=== PATIENT | female | born 1945 | race Caucasian/White ===

== ENCOUNTER 2017-12-01 09:00 | Day surgery (SDC) | payer MEDICARE, OTHER, SELFPAY ==
[2017-12-01] VITALS (7 sets, daily range): BP systolic 138–155; BP diastolic 47–82; PULSE 54–62; RESP 16–18; TEMP 36.4–36.9; O2SAT 96–100; BMI 30.9
--- NOTE | 2017-12-01 10:31 | PCM.OPRPT ---
Report of Operation Date of Procedure: 12/01/17 Pre-Operative Diagnosis: Constipation Post-Operative Diagnosis: Normal colon Surgery/Procedure Performed:: Colonoscopy Type of Anesthesia:: MAC Anesthesiologist: Moy Flynn Specimen's removed: None Estimated Blood Loss (mL): None Description of Procedure: Procedure: Colonoscopy After reviewing the risks benefits, the patient was deemed in satisfactory condition to undergo procedure. After obtaining informed consent, the scope was passed under direct visualization. Throughout the procedure, the patient's blood pressure pulse and position saturations were monitored continuously anesthesia. The colonoscope was introduced through the anus and advanced to the cecum, identified by the appendiceal orifice, IC valve and transillumination. The colonoscopy was performed without difficulty. The patient tolerated procedure well. Quality of bowel prep was good. Findings: The perianal and digital rectal exam were normal. The colon (entire examined portion) appeared normal. Retroflexed view of the distal rectum and anal verge was normal and showed no anal or rectal abnormalities Impression: 1. The entire colon is normal. 2. The distal rectal and anal verge were normal on retroflexed view. Recommendations: High-fiber diet for the constipation Repeat colonoscopy in 10 years for screening purposes - Complications none
== END 2017-12-01 11:25 | disposition home or self-care (01) ==
LOC: EN 09:01 → AC 09:03
PROVIDERS: Family Provider Family Medicine; PCP Family Medicine; Visit Provider Surgery
PROC: 0DJD8ZZ Inspection of Lower Intestinal Tract, Via Natural or Artificial Opening Endoscopic (ICD-10-PCS; CPT 45378; principal; 2017-12-01 10:10)
DX: K59.00 Constipation, unspecified (principal); E03.9 Hypothyroidism, unspecified; E78.5 Hyperlipidemia, unspecified; I10 Essential (primary) hypertension; K21.9 Gastro-esophageal reflux disease without esophagitis; F41.9 Anxiety disorder, unspecified; F32.9 Major depressive disorder, single episode, unspecified; Z85.850 Personal history of malignant neoplasm of thyroid; Z79.82 Long term (current) use of aspirin; Z79.899 Other long term (current) drug therapy
CPT/HCPCS: 45378; J7120

== ENCOUNTER → 2017-12-23 09:27 | Outpatient (CLI) | payer MEDICARE, OTHER, SELFPAY | PROVIDERS: Family Provider Family Medicine; PCP Family Medicine; Visit Provider Family Medicine | DX: R05 Cough (principal) | CPT/HCPCS: 71046 ==

== ENCOUNTER → 2018-02-16 06:54 | Outpatient (CLI) | payer MEDICARE, OTHER, SELFPAY ==
[2018-02-25 12:23] LABS: Absolute Neutrophil Count 2.8 X10^3/uL (2.0-7.7); Basophil# 0.06 X10^3/uL; Basophil% 1.3 % (0-1); Eosinophil# 0.11 X10^3/uL; Eosinophils% 2.3 % (0-5); Hematocrit 40.9 % (37-47); Hemoglobin 13.4 g/dl (12.0-15.0); Lymphocyte % 31.3 % (19-41); Mean Corp Hgb Conc 32.8 g/gl (32-36); Mean Corpuscular Hgb 30.5 pg (27.0-32.0); Mean Corpuscular Volume 93.2 fL (81-99); Mean Platelet Vol. 9.3 fl (6.2-12.0); Monocyte# 0.37 X10^3/uL; Monocyte% 7.7 % (0-10); Neutrophil # 2.75 X10^3/uL (2.7-7.7); Neutrophil % 57.2 % (47-70); Platelet Count 256 K/mm3 (150-450); RBC Distribution Width CV 13.7 % (11.6-14.6); RBC Distribution Width SD 45.3 fl (35.1-43.9); Red Blood Count 4.39 M/mm3 (4.2-5.4); White Blood Count 4.8 K/mm3 (4.4-11.0)
[2018-02-25 12:38] LABS: POSITIVE COUNT NO; POSITIVE DIFFERENTIAL NO; POSITIVE MORPHOLOGY NO
[2018-02-25 12:43] LABS: ALB/GLOB Ratio 1.1 RATIO (0.9-2.4); AST(SGOT) 13 U/L (15-37); Alanine Aminotransfer ALT/SGPT 23 U/L (13-56); Albumin, Serum 3.9 g/dL (3.2-5.0); Alkaline Phosphatase 75 U/L (45-117); Anion Gap 7 (5-15); BUN 22 mg/dL (7-18); BUN/Creat Ratio 27.5 RATIO (10-20); Calcium,Total 8.9 mg/dL (8.5-10.1); Chloride 105 mmol/L (98-107); Cholesterol 300 mg/dL (200); EST Glomerular Filtration Rate 74 mL/min (>60); Est Glom Filt Rate - Afr Amer 90 mL/min (>60); Globulin 3.5 g/dL (2.2-4.2); Glucose 92 mg/dL (74-106); High Density Lipoprotein 53 mg/dL; Iron 81 ug/dL (50-170); Potassium 4.5 mmol/L (3.5-5.1); Protein, Total 7.4 g/dL (6.4-8.2); Sodium Level 139 mmol/L (136-145); Triglycerides 296 mg/dL; Very Low Density Lipoprotein 59 mg/dL (5-40); Vitamin B12 1191 pg/mL (211-911)
--- OUTSIDE RECORDS SUMMARY | 2018-05-21 04:53 | XMS RPT_ITS ---
:1945 Author Organization OHIP Support Name Relationship Address Phone BOY HUBER Unavailable [id number] + [place] [address] R Unavailable Unavailable Unavailable HILTY, BOY Unavailable [id number] [place] [address] RD + [place] [address] R Unavailable Unavailable Unavailable HILTY, BOY Unavailable [address] + [place] [address] R Unavailable Unavailable Unavailable HILTY, BOY Unavailable [phone] [place] [address] RD + [place] [address] R Unavailable Unavailable Unavailable HILTY, BOY Unavailable [phone] [place] [address] RD + [place] [address] R Unavailable Unavailable Unavailable HILTY, BOY Unavailable [phone] [place] [address] RD + [place] [address] R Unavailable Unavailable Unavailable HILTY, BOY Unavailable [phone] [place] [address] RD + [place] [address] R Unavailable Unavailable Unavailable HILTY, BOY Unavailable [phone] [place] [address] RD + [place] [address] R Unavailable Unavailable Unavailable HILTY, BOY Unavailable [address] [place] [address] RD + [place] [address] R Unavailable Unavailable Unavailable Care Team Providers Name Role Phone GARLAND MOJICA Referring Unavailable GARLAND MOJICA Attending Unavailable GARLAND MOJICA Referring Unavailable GARLAND MOJICA Attending Unavailable BIANCA GASCA ([facility]) Attending Unavailable GARLAND MOJICA Referring Unavailable Malys, Elis Primary Care Unavailable Referred, Self Attending Unavailable Robotham, Hannah Attending Unavailable Malys, Elis Referring Unavailable Robotham, Hannah Attending Unavailable Malys, Elis Referring Unavailable Malys, Elis Primary Care Unavailable Robotham, Hannah Attending Unavailable Malys, Elis Primary Care Unavailable Robotham, Hannah Referring Unavailable Robotham, Hannah Attending Unavailable Robotham, Hannah Referring Unavailable Malys, Elis Primary Care Unavailable Robotham, Hannah Consulting Unavailable Miedel, Susan Attending Unavailable MiedelKendallSusan Referring Unavailable Malys, Elis Primary Care Unavailable Malys, Elis Attending Unavailable Malys, Elis Primary Care Unavailable Malys, Elis Attending Unavailable Malys, Elis Primary Care Unavailable Malys, Elis Referring Unavailable Cebul, Cipriano Attending Unavailable Malys, Elis Referring Unavailable PROBLEMS PROBLEMS DATE TYPE CONDITION / CODE ATTENDING STATUS SOURCE 03/24/2018 Unknown 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, 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 / Repository I65.29(ICD-10) 03/28/2018 Unknown E78.5 - Malys, Elis Active [facility] Hyperlipidemia, [facility] E78.5(ICD-10) Repository 03/28/2018 Unknown R41.89 - Other Malys, Elis Active [facility] symptoms and signs [facility] cognitive Repository functions and awareness / R41.89(ICD-10) 03/28/2018 Unknown I10 - Essential Malys, Elis Active [facility] (primary) [facility] hypertension / Hospital I10(ICD-10) Repository 03/28/2018 Unknown E03.9 - Malys, Elis Active [facility] Hypothyroidism, [facility] E03.9(ICD-10) Repository 03/28/2018 Unknown E56.9 - Vitamin Malys, Elis Active [facility] deficiency, [facility] Hospital E56.9(ICD-10) Repository 01/10/2018 Active Unknown / [place] Active [facility] UNK(Unknown) HUMMEL, [facility] GARLAND Repository 01/10/2018 Active Encounter for NA Active [facility] screening Main [place] mammogram for Repository malignant neoplasm of breast / Z12.31(ICD-10) PROCEDURES PROCEDURES No Procedure Records FoundRESULTS RESULTS CBC W/DIFF, AUTOMATED Collected: 02/25/2018 Status: F Source: [place] 9:49 AM [facility] REPOSITORY TYPE CODE TESTS RESULT OUT OF RANGE REFERENCE UNITS LAB L100.1000 4.4-11.0 K/mm3 Normal WBC 4.8 LAB L100.1200 4.2-5.4 M/mm3 Normal RBC 4.39 LAB L100.1300 12.0-15.0 g/dl Normal HGB 13.4 LAB L100.1400 37-47 % Normal HCT 40.9 LAB L100.1500 81-99 fL Normal MCV 93.2 LAB L100.1600 27.0-32.0 pg Normal MCH 30.5 LAB L100.1700 32-36 g/gl Normal MCHC 32.8 LAB L100.1810 11.6-14.6 % Normal RDW CV 13.7 LAB L100.1820 35.1-43.9 fl High RDW SD 45.3 LAB L100.1900 150-450 K/mm3 Normal PLT 256 LAB L100.2000 6.2-12.0 fl Normal MPV 9.3 LAB L100.2100 47-70 % Normal NEUT% 57.2 LAB L100.2200 19-41 % Normal LY% 31.3 LAB L100.2300 0-10 % Normal MONO% 7.7 LAB L100.2400 0-5 % Normal EO% 2.3 LAB L100.2500 0-1 % High BASO% 1.3 LAB L100.2550 0.0-0.9 % Normal IM GRAN % 0.200 Result Comment: IG% - Immature Granulocytes (promyelocytes, myelocytes and metamyelocytes) > 1% indicates that a LEFT SHIFT is Present. LAB L100.2620 2.0-7.7 X10 3/uL Normal Absolute Neut 2.8 LAB L100.2720 0.83-4.51 X10 3/ul Normal Absolute Lymph 1.50 Performed By: #### L100.0100 #### [facility] [address] [place], [address] COMPREHENSIVE METABOLIC Collected: 02/25/2018 Status: F Source: [facility] 9:49 AM [facility] REPOSITORY TYPE CODE TESTS RESULT OUT OF RANGE REFERENCE UNITS LAB L501.0100 74-106 mg/dL Normal GLU 92 Result Comment: Please note revised GLUCOSE reference range effective 2017. LAB L501.1000 7-18 mg/dL High BUN 22 LAB L501.1100 0.55-1.02 mg/dL Normal CREAT,SERUM 0.80 Result Comment: The validity of the calculated GFR AND GFRAA in patients over 70 years has not been determined. Clinical correlation is essential. LAB L501.1110 >60 mL/min Normal EST GFR 74 Result Comment: Non- GFR Calc LAB L501.1115 >60 mL/min Normal EST GFR - AA 90 Result Comment: GFR Calc LAB L501.1300 10-20 RATIO High BUN/CRE 27.5 LAB L501.1500 6.4-8.2 g/dL T Normal PROT 7.4 LAB L501.1800 3.2-5.0 g/dL Normal ALB 3.9 LAB L501.1950 2.2-4.2 g/dL Normal GLOB 3.5 LAB L501.2000 0.9-2.4 RATIO Normal A/G 1.1 LAB L501.2200 8.5-10.1 mg/dL CA Normal 8.9 LAB L501.4100 15-37 U/L Low AST 13 LAB L501.4305 45-117 U/L Normal ALK P 75 LAB L501.4405 13-56 U/L Normal ALT 23 LAB L501.4600 0.20-1.00 mg/dL T Normal BILI 0.40 LAB L501.5300 136-145 mmol/L NA Normal 139 LAB L501.5600 3.5-5.1 mmol/L K Normal 4.5 LAB L501.5900 98-107 mmol/L CL Normal 105 LAB L501.6100 21.0-32.0 mmol/L Normal CO2 27.0 LAB L501.6200 5-15 Normal GAP 7 Performed By: #### L500.4050, L500.4100, L503.6150 #### [facility] [address] [place], [address] LIPID PROFILE Collected: 02/25/2018 Status: F Source: [place] 9:49 AM [facility] REPOSITORY TYPE CODE TESTS RESULT OUT OF RANGE REFERENCE UNITS LAB L501.4900 200 mg/dL High CHOL 300 Result Comment: <200 mg/dL Desirable 200-240 mg/dL Borderline >240 mg/dL High Risk LAB L501.5000 mg/dL High TRIG 296 Result Comment: The drugs N-Acetylcysteine and Metamizole may falsely depress this assay. Serum Triglycerides Reference Interval Normal <150 mg/dL Borderline high 150 - 199 mg/dL High 200 - 499 mg/dL Very High > or = 500 mg/dL LAB L501.6400 mg/dL Normal HDL 53 Result Comment: The drugs N-Acetylcysteine and Metamizole may falsely depress this assay. Reference Range HDL <40 mg/dL Low HDL Cholesterol HDL >or= 60 mg/dL High HDL Cholesterol LAB L501.6500 0-130 mg/dL High LDL 188 LAB L501.6600 5-40 mg/dL High VLDL 59 Performed By: #### L500.4050, L500.4100, L503.6150 #### [facility] [address] [place], [address] IRON Collected: 02/25/2018 Status: F Source: [place] 9:49 AM [facility] REPOSITORY TYPE CODE TESTS RESULT OUT OF RANGE REFERENCE UNITS LAB L503.6150 50-170 ug/dL Normal IRON 81 Performed By: #### L500.4050, L500.4100, L503.6150 #### [facility] [address] [place], [address] VITAMIN B12 Collected: 02/25/2018 Status: F Source: [place] 9:49 AM [facility] REPOSITORY TYPE CODE TESTS RESULT OUT OF REFERENCE UNITS RANGE LAB L503.0105 211-911 pg/mL High Vitamin B12 1191 Performed By: #### L503.0105 #### [facility] [address] [place], [address] PROGRESS Observed: 01/28/2018 Status: COMPLETED Source: [place] 11:31 AM [facility] REPOSITORY HNO ID: [id number] Author: Bianca Gasca Service: (none) Author Type: Nurse Practitioner Type: Progress Notes Filed: 01/28/2018 12:20 PM Note Text: Lilliana Huber presents today for pessary reinsertion. Had 2.25 Gelhorn fitted yesterday. Upon urinating when she returned home, pessary fell out. The alternatives, risks, benefits, and potential complications have been reviewed with the patient. The patient states an understanding of RBAP and consents to proceed with the procedure. Vaginal Exam: No lesions or erosions A size 2.50 Gelhorn unable to be inserted due to patient discomfort. Fitting kit incomplete due to fitting pessaries being cleaned so fitting not able to be completed. Pt will be scheduled for office visit for pessary fitting with Dr Hummel. Assistance given in making appointment. Bianca Gasca APRN.CNP CNOV Observed: 01/28/2018 Status: COMPLETED Source: [place] 11:30 AM [facility] REPOSITORY Office Visit (WOOB) LILLIANA HUBER ([id number]) 1945 F Date Time Provider Department 01/28/18 11:30 AM BIANCA GASCA ([facility]) WOOB During your visit today, we recorded the following information about you: Weight 75.8 kg Bianca Gasca APRN.CNP 01/28/2018 12:20 PM Signed Lilliana Burgosadore presents today for pessary reinsertion. Had 2.25 Gelhorn fitted yesterday. Upon urinating when she returned home, pessary fell out. The alternatives, risks, benefits, and potential complications have been reviewed with the patient. The patient states an understanding of RBAP and consents to proceed with the procedure. Vaginal Exam: No lesions or erosions A size 2.50 Gelhorn unable to be inserted due to patient discomfort. Fitting kit incomplete due to fitting pessaries being cleaned so fitting not able to be completed. Pt will be scheduled for office visit for pessary fitting with Dr Hummel. Assistance given in making appointment. Bianca Gasca APRN.CNP Referring Provider: GARLAND MOJICA [[id number]] Allergies As of Date: 01/28/2018 Noted Allergy Reaction AMBIEN (ZOLPIDEM TARTRATE) 03/25/2005 1 - Mental Status Change environmental [Other] 03/25/2005 Comments: second hand smoke jalapeno [Other] 03/01/2008 LATEX 08/29/2007 2 - Rash LIPITOR (ATORVASTATIN) 03/25/2005 Comments: muscle aches OAK 12/07/2013 14 - Other: See Comments PENICILLINS 03/25/2005 4 - Hives plastic [Other] 03/25/2005 Comments: ?adhesive=rashy SIMVASTATIN 03/25/2005 14 - Other: See Comments Comments: flu like sxs SULFA (SULFONAMIDE ANTIBIOTICS) 03/25/2005 Comments: uncertai;n Date Reviewed: 01/28/2018 Reviewed by: Bianca Gasca - Fully Assessed Primary Visit Diagnosis:Fitting and adjustment of pessary [Z46.89] Prescriptions as of 01/28/2018 Sig: LISINOPRIL 20 MG TABLET Take 20 mg by mouth once bina* CHOLECALCIFEROL (VITAMIN D3) * Take 1,000 Units by mouth onc* CALTRATE PLUS ORAL Take by mouth daily at bedti* FLAXSEED ORAL Take by mouth. Put seeds on * LEVOTHYROXINE 175 MCG TABLET Take 1 tablet by mouth once d* ALFALFA 250 MG TABLET Take 2 tablets by mouth twice* BENADRYL 25 MG CAPSULE Take two(2) at bedtime NORVASC 5 MG TABLET Take one(1) tablet daily. ATENOLOL 25 MG TABLET Take one(1) tablet daily. Problem List As Of Date 01/28/2018 Noted Resolved Thyroid CA [C73] INVALID FOR* More... URGENCY OF URINATION [R39.15] INVALID FOR* URGE INCONTINENCE [N39.41] INVALID FOR* FEMALE STRESS INCONTINENCE [N39.3] INVALID FOR*11/08/2008 ATROPHIC VAGINITIS [N95.2] INVALID FOR* Urethral caruncle [N36.2] INVALID FOR*11/26/2011 CYSTOCELE, MIDLINE [N81.11] INVALID FOR* BONE AND CARTILAGE DIS NOS [M89.9, M94.9] INVALID FOR* UNSP ABNORMAL MAMMOGRAM [R92.8] INVALID FOR* Vitamin D deficiency [E55.9] INVALID FOR* Osteopenia [M85.80] Depressive disorder, not elsewhere classified [* MVP (mitral valve prolapse) [I34.1] Sleep disturbance, unspecified [G47.9] GERD (gastroesophageal reflux disease) [K21.9] Unspecified hemorrhoids with other complication* Diverticulosis of colon (without mention of hem* Uterovaginal prolapse, incomplete [N81.2] INVALID FOR* Diaphragmatic hernia without mention of obstruc*INVALID FOR* Duodenitis without mention of hemorrhage [K29.8*INVALID FOR* Esophagitis, unspecified [K20.9] INVALID FOR* Esophageal reflux [K21.9] INVALID FOR* Encounter Status:Closed by BIANCA GASCA on 01/28/18 PROGRESS Observed: 01/27/2018 Status: COMPLETED Source: [place] 8:43 AM [facility] REPOSITORY HNO ID: [id number] Author: Garland Hummel Service: (none) Author Type: Physician Type: Progress Notes Filed: 01/27/2018 8:48 AM Note Text: Lilliana Huber is a 72 year old female who presents for pessary fitting for uterovaginal prolapse, difficulty emptying bladder, urinary urgency. Pt offers no concerns today. 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 Thyroid cancer - Osteopenia no currently osteopenia - Postmenopausal atrophic vaginitis - Rotator cuff syndrome of shoulder and allied disorders Rotator cuff syndrome - Symptomatic menopausal or female climacteric states - Unspecified constipation Constipation resolved - Unspecified essential hypertension Essential hypertension - Unspecified hypothyroidism Hypothyroidism - Urge incontinence very Mild - Urgency of urination - Uterovaginal prolapse, incomplete PAST SURGICAL HISTORY Procedure Laterality Date - BX BREAST PERC VACUUM/ROTN Right - benign - COLONOSCOP W/ OR W/O [facility] SPEC 10/20/2012 Colonoscopy - DANDC, DIAG AND/OR THERAPEUTIC Dilation AND curettage - EGD W/O [facility] SPECIMEN W/BX 12/25/10 - LIGATE FALLOPIAN TUBE Tubal ligation - PAST SURGICAL HISTORY OF peridontal - REPAIR UMBILICAL AMAYA,<5Y/O,REDUC Hernia repair, umbilical - THYROIDECTOMY FAMILY HISTORY Problem Relation Age of Onset - Hypertension Mother - Heart Mother - Heart Maternal Grandmother - Breast Cancer Maternal Aunt age 50 Social History Marital status: Unknown Spouse name: Boy (Arnot) Years of education: 16 Number of children: 1 Occupational History Occupation Employer Comment Retired Social History Main Topics Smoking status: Never Smoker Smokeless tobacco: Never Used Alcohol use: No Drug use: No Sexual activity: Yes Partners with: Male control/protection: Tubal Ligation Current Outpatient Prescriptions: lisinopril (ZESTRIL, PRINIVIL) 20 mg tablet Take 20 mg by mouth once daily. Cholecalciferol, Vitamin D3, 1,000 unit Tab Take 1,000 Units by mouth once daily. CALCIUM CARB/VIT D2/MINERALS (CALTRATE PLUS ORAL) Take by mouth daily at bedtime. FLAXSEED ORAL Take by mouth. Put seeds on ceral. levothyroxine 175 mcg tablet Take 1 tablet by mouth once daily. alfalfa 250 mg Tab Take 2 tablets by mouth twice daily as needed. diphenhydramine hcl(BENADRYL 25 MG CAP) Take two(2) at bedtime NORVASC 5 MG TAB Take one(1) tablet daily. ATENOLOL 25 MG TAB Take one(1) tablet daily. No current facility-administered medications for this visit. Allergies As of Date: 01/27/2018 Allergen Noted Reaction AMBIEN [ZOLPIDEM TARTRATE] 03/25/2005 Mental Status Change ENVIRONMENTAL [OTHER] 03/25/2005 JALAPENO [OTHER] 03/01/2008 LATEX 08/29/2007 Rash LIPITOR [ATORVASTATIN] 03/25/2005 OAK 12/07/2013 Other: See Comments PENICILLINS 03/25/2005 Hives PLASTIC [OTHER] 03/25/2005 SIMVASTATIN 03/25/2005 Other: See Comments SULFA (SULFONAMIDE ANTIBIOTICS) 03/25/2005 Fully Assessed 01/27/2018 REVIEW OF SYSTEMS Abdomen: no pain Bladder: urgency at times- but not able to empty completely. Pt reports difficulty starting stream. .. Expanded ROS: GENERAL: No weight loss, malaise or fevers Allergies and current medication updated:Yes EXAM: BP 122/70 Wt 167 lb (75.8kg) GENERAL: pleasant, female in no apparent distress HEENT: Normocephalic and atraumatic NECK: full range of motion DERMATOLOGY: Normal, without lesions, non-icteric and non-hirsute PELVIC: complete uterine prolapse noted today on exam- no ulcerations. Pt was fitted for GELHORN 2.25 size. Pt tolerated well- pt reports comfort, able to urinate well with it in during visit today. Trial size was removed and was given new one and placed without difficulty. NEURO: alert and oriented x3,exam grossly non-focal EXTREMITIES: normal ASSESSMENT AND PLAN: Encounter Diagnosis ICD-10-CM 1. Complete uterovaginal prolapse N81.3 2. Encounter for fitting and adjustment of pessary Z46.89 3. GELHORN 2.25 placed without difficulty. Pt was able to urinate well with it in place. Pt was counseled on routine follow up. Pt was counseled on vaginal discharge, bleeding, ulcerations- pt will call if anything arises. 4. RTO 6 wks Garland Perales MD CNOV Observed: 01/27/2018 Status: COMPLETED Source: [place] 8:20 AM [facility] REPOSITORY Office Visit (WOOB) NAMLILLIANA ([id number]) 1945 F Date Time Provider Department 01/27/18 8:20 AM GARLAND MOJICA WODINA During your visit today, we recorded the following information about you: Blood pressure Weight 122/70 75.8 kg Garland Perales MD 01/27/2018 8:48 AM Signed Lilliana Huber is a 72 year old female who presents for pessary fitting for uterovaginal prolapse, difficulty emptying bladder, urinary urgency. Pt offers no concerns today. 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 Thyroid cancer - Osteopenia no currently osteopenia - Postmenopausal atrophic vaginitis - Rotator cuff syndrome of shoulder and allied disorders Rotator cuff syndrome - Symptomatic menopausal or female climacteric states - Unspecified constipation Constipation resolved - Unspecified essential hypertension Essential hypertension - Unspecified hypothyroidism Hypothyroidism - Urge incontinence very Mild - Urgency of urination - Uterovaginal prolapse, incomplete PAST SURGICAL HISTORY Procedure Laterality Date - BX BREAST PERC VACUUM/ROTN Right - benign - COLONOSCOP W/ OR W/O [facility] SPEC 10/20/2012 Colonoscopy - DANDC, DIAG AND/OR THERAPEUTIC Dilation AND curettage - EGD W/O [facility] SPECIMEN W/BX 12/25/10 - LIGATE FALLOPIAN TUBE Tubal ligation - PAST SURGICAL HISTORY OF peridontal - REPAIR UMBILICAL AMAYA,<5Y/O,REDUC Hernia repair, umbilical - THYROIDECTOMY FAMILY HISTORY Problem Relation Age of Onset - Hypertension Mother - Heart Mother - Heart Maternal Grandmother - Breast Cancer Maternal Aunt age 50 Social History Marital status: Unknown Spouse name: Boy Dawson) Years of education: 16 Number of children: 1 Occupational History Occupation Employer Comment Retired Social History Main Topics Smoking status: Never Smoker Smokeless tobacco: Never Used Alcohol use: No Drug use: No Sexual activity: Yes Partners with: Male control/protection: Tubal Ligation Current Outpatient Prescriptions: lisinopril (ZESTRIL, PRINIVIL) 20 mg tablet Take 20 mg by mouth once daily. Cholecalciferol, Vitamin D3, 1,000 unit Tab Take 1,000 Units by mouth once daily. CALCIUM CARB/VIT D2/MINERALS (CALTRATE PLUS ORAL) Take by mouth daily at bedtime. FLAXSEED ORAL Take by mouth. Put seeds on ceral. levothyroxine 175 mcg tablet Take 1 tablet by mouth once daily. alfalfa 250 mg Tab Take 2 tablets by mouth twice daily as needed. diphenhydramine hcl(BENADRYL 25 MG CAP) Take two(2) at bedtime NORVASC 5 MG TAB Take one(1) tablet daily. ATENOLOL 25 MG TAB Take one(1) tablet daily. No current facility-administered medications for this visit. Allergies As of Date: 01/27/2018 Allergen Noted Reaction AMBIEN [ZOLPIDEM TARTRATE] 03/25/2005 Mental Status Change ENVIRONMENTAL [OTHER] 03/25/2005 JALAPENO [OTHER] 03/01/2008 LATEX 08/29/2007 Rash LIPITOR [ATORVASTATIN] 03/25/2005 OAK 12/07/2013 Other: See Comments PENICILLINS 03/25/2005 Hives PLASTIC [OTHER] 03/25/2005 SIMVASTATIN 03/25/2005 Other: See Comments SULFA (SULFONAMIDE ANTIBIOTICS) 03/25/2005 Fully Assessed 01/27/2018 REVIEW OF SYSTEMS Abdomen: no pain Bladder: urgency at times- but not able to empty completely. Pt reports difficulty starting stream. .. Expanded ROS: GENERAL: No weight loss, malaise or fevers Allergies and current medication updated:Yes EXAM: BP 122/70 Wt 167 lb (75.8kg) GENERAL: pleasant, female in no apparent distress HEENT: Normocephalic and atraumatic NECK: full range of motion DERMATOLOGY: Normal, without lesions, non-icteric and non-hirsute PELVIC: complete uterine prolapse noted today on exam- no ulcerations. Pt was fitted for GELHORN 2.25 size. Pt tolerated well- pt reports comfort, able to urinate well with it in during visit today. Trial size was removed and was given new one and placed without difficulty. NEURO: alert and oriented x3,exam grossly non-focal EXTREMITIES: normal ASSESSMENT AND PLAN: Encounter Diagnosis ICD-10-CM 1. Complete uterovaginal prolapse N81.3 2. Encounter for fitting and adjustment of pessary Z46.89 3. GELHORN 2.25 placed without difficulty. Pt was able to urinate well with it in place. Pt was counseled on routine follow up. Pt was counseled on vaginal discharge, bleeding, ulcerations- pt will call if anything arises. 4. RTO 6 wks Garland Perales MD Referring Provider: SELF [[id number]] Allergies As of Date: 01/27/2018 Noted Allergy Reaction AMBIEN (ZOLPIDEM TARTRATE) 03/25/2005 1 - Mental Status Change environmental [Other] 03/25/2005 Comments: second hand smoke jalapeno [Other] 03/01/2008 LATEX 08/29/2007 2 - Rash LIPITOR (ATORVASTATIN) 03/25/2005 Comments: muscle aches OAK 12/07/2013 14 - Other: See Comments PENICILLINS 03/25/2005 4 - Hives plastic [Other] 03/25/2005 Comments: ?adhesive=rashy SIMVASTATIN 03/25/2005 14 - Other: See Comments Comments: flu like sxs SULFA (SULFONAMIDE ANTIBIOTICS) 03/25/2005 Comments: uncertai;n Date Reviewed: 01/27/2018 Reviewed by: Karen Taylor Ma - Fully Assessed Reason for Visit: Pessary [[id number]] Primary Visit Diagnosis:Complete uterovaginal prolapse [N81.3] Other Visit Diagnosis:Encounter for fitting and adjustment of pessary [Z46.89] Prescriptions as of 01/27/2018 Sig: LISINOPRIL 20 MG TABLET Take 20 mg by mouth once bina* CHOLECALCIFEROL (VITAMIN D3) * Take 1,000 Units by mouth onc* CALTRATE PLUS ORAL Take by mouth daily at bedti* FLAXSEED ORAL Take by mouth. Put seeds on * LEVOTHYROXINE 175 MCG TABLET Take 1 tablet by mouth once d* ALFALFA 250 MG TABLET Take 2 tablets by mouth twice* BENADRYL 25 MG CAPSULE Take two(2) at bedtime NORVASC 5 MG TABLET Take one(1) tablet daily. ATENOLOL 25 MG TABLET Take one(1) tablet daily. Problem List As Of Date 01/27/2018 Noted Resolved Thyroid CA [C73] INVALID FOR* More... URGENCY OF URINATION [R39.15] INVALID FOR* URGE INCONTINENCE [N39.41] INVALID FOR* FEMALE STRESS INCONTINENCE [N39.3] INVALID FOR*11/08/2008 ATROPHIC VAGINITIS [N95.2] INVALID FOR* Urethral caruncle [N36.2] INVALID FOR*11/26/2011 CYSTOCELE, MIDLINE [N81.11] INVALID FOR* BONE AND CARTILAGE DIS NOS [M89.9, M94.9] INVALID FOR* UNSP ABNORMAL MAMMOGRAM [R92.8] INVALID FOR* Vitamin D deficiency [E55.9] INVALID FOR* Osteopenia [M85.80] Depressive disorder, not elsewhere classified [* MVP (mitral valve prolapse) [I34.1] Sleep disturbance, unspecified [G47.9] GERD (gastroesophageal reflux disease) [K21.9] Unspecified hemorrhoids with other complication* Diverticulosis of colon (without mention of hem* Uterovaginal prolapse, incomplete [N81.2] INVALID FOR* Diaphragmatic hernia without mention of obstruc*INVALID FOR* Duodenitis without mention of hemorrhage [K29.8*INVALID FOR* Esophagitis, unspecified [K20.9] INVALID FOR* Esophageal reflux [K21.9] INVALID FOR* Disposition: Return in about 6 weeks (around 03/10/2018) for pessary check . Follow-up and Disposition History Recorded Encounter Status:Closed by GARLAND HUMMEL MD on 01/27/18 CNOV Observed: 01/10/2018 Status: COMPLETED Source: [facility] 9:50 AM [facility] REPOSIT[facility] Office Visit (WOOB) LILLIANA HUBER ([id number]) 1945 F Date Time Provider Department 01/10/18 9:50 AM GARLAND MOJICA WODINA During your visit today, we recorded the following information about you: Blood pressure Weight Height 120/68 75.8 kg 1.575 m Karen Taylor Ma 01/10/2018 10:37 AM Signed Mailing Manager offered: Patient declines. Garland Perales MD 01/10/2018 10:37 AM Signed Lilliana Huber is a 72 year old who presents for her annual gynecologic exam with complaints, vaginal dryness. Pt has 7 grandchildren- one is in residency in [place]. Heading to [facility] for winter. Postmenopausal: Yes HRT use: No. Last Pap: 2010 normal HPV: 2010 negative History of abnormal pap: No Last mammogram: 2018 patient getting mammogram today, results pending. History of abnormal mammogram: No Sexually active: Yes Pain with intercourse: No Postcoital bleeding: No Hot flashes: No Exercise: routine Diet: Balanced Obstetric History T0 L1 SAB0 TAB0 Ectopic0 Multiple0 Live Births0 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 Thyroid cancer - Osteopenia no currently osteopenia - Postmenopausal atrophic vaginitis - Rotator cuff syndrome of shoulder and allied disorders Rotator cuff syndrome - Symptomatic menopausal or female climacteric states - Unspecified constipation Constipation resolved - Unspecified essential hypertension Essential hypertension - Unspecified hypothyroidism Hypothyroidism - Urge incontinence very Mild - Urgency of urination - Uterovaginal prolapse, incomplete PAST SURGICAL HISTORY Procedure Laterality Date - BX BREAST PERC VACUUM/ROTN Right - benign - COLONOSCOP W/ OR W/O [facility] SPEC 10/20/2012 Colonoscopy - DANDC, DIAG AND/OR THERAPEUTIC Dilation AND curettage - EGD W/O [facility] SPECIMEN W/BX 12/25/10 - LIGATE FALLOPIAN TUBE Tubal ligation - PAST SURGICAL HISTORY OF peridontal - REPAIR UMBILICAL AMAYA,<5Y/O,REDUC Hernia repair, umbilical - THYROIDECTOMY FAMILY HISTORY Problem Relation Age of Onset - Hypertension Mother - Heart Mother - Heart Maternal Grandmother - Breast Cancer Maternal Aunt age 50 SOCIAL HISTORY Social History Substance Use Topics - Smoking status: Never Smoker - Smokeless tobacco: Never Used - Alcohol use No REVIEW OF SYSTEMS Abdomen: No abdominal pain, nausea, vomiting, diarrhea, or constipation. No bloating, early satiety, indigestion, or increased flatulence. Bladder: No dysuria, gross hematuria, urinary urgency, or incontinence- Urinary frequency Breast: No breast lumps, nipple d/c, overlying skin changes, redness or skin retraction Allergies and current medication updated:Yes EXAM: BP 120/68 Ht 5' 2 (1.58m) Wt 167 lb (75.8kg) BMI 30.54 kg/(m2). GENERAL: pleasant, female in no apparent distress HEENT: Normocephalic, atraumatic, mucus membranes moist and no lesions NECK: Supple, full range of motion, no adenopathy and thyroid normal DERMATOLOGY: Normal, without lesions, non-icteric and non-hirsute BREAST: soft, non-tender, symmetric, no dominant mass, normal nipple-areolar complex, no lymphadenopathy and no nipple discharge ABDOMEN: soft, non-tender and no masses PELVIC: external genitalia normal, normal Bartholin's glands, urethra, Mcqueeney's glands, no vulvar lesions, no cervical lesions, physiologic discharge present, normal appearing perineal body and perianal region, cystocele 3rd degree, cervical prolapse 2nd degree BIMANUAL: uterus normal size, shape and consistency, no adnexal masses and non-tender RECTOVAGINAL: deferred. NEURO: alert and oriented x3,exam grossly non-focal EXTREMITIES: normal ASSESSMENT/PLAN: 1) Health maintenance: Pap/HPV screening no longer needed Mammogram ordered Mammogram up to date Nutrition, exercise and routine health maintenance exams reviewed. Calcium/Vitamin D supplementation information provided. Colon cancer screening: up to date with screening BMD: followed by PCP 2) Follow up one year or sooner as needed 3) reviewed Prolapse- does not splint - reviewed Pessary vs surgical options- pt is asymptomatic at this time- instructed to call office if she experiences pain/pressure/inability to urinate etc. MD Garland Christopher MD 01/10/2018 9:44 AM Signed Calcium and Vitamin D Supplementation (from the National Institutes of Health Office of Dietary Supplements 2010) Calcium is required by the body for blood vessel, muscle, hormone and nerve functioning. Most of the body's calcium is stored in the bones and teeth where it supports structure and function. Bone is continuously broken down and reformed. When bone breakdown exceeds formation, especially in postmenopausal women, bone loss can increase the risk of osteoporosis and fractures. In addition to low calcium intake, women who smoke, have a family history of osteoporosis, are thin, or , or who take certain medications such as cancer chemotherapy, seizure mediations and steroids are at increased risk of osteoporosis. The calcium requirements in women change with age. The National Institutes of Health (NIH) recommends: 1000mg elemental calcium for premenopausal women age 19-50 1200mg elemental calcium for postmenopausal women and all women over 50 Milk, yogurt, and cheese are rich natural sources of calcium and are the major food contributors in the [place]. For example, 8oz of milk (whole, lowfat or skim) contains about 300mg calcium, 8oz of yogurt contains 415mg. Nondairy sources include salmon and sardines and vegetables, such as Bulgarian cabbage, kale, and broccoli. Foods fortified with calcium include many fruit juices, tofu and cereals. For more food calcium content information, visit http://ods.od.nih.gov/factsheets/calcium. Calcium supplements come in several different forms. Remember that the recommendations are for millgrams (mg) of elemental calcium which may be less than the total weight of the supplement. The amount of elemental calcium is required to be printed on the label. Calcium carbonate is the least expensive form. It must be taken on a full stomach to be properly absorbed. Some patients may experience gas or constipation. Calcium phosphate and calcium citrate may be taken either with or without food and tend to have less side effects but are generally more expensive. Because of its ability to neutralize stomach acid, calcium carbonate is found in some zkve-qsq-xajqpoz antacid products, such as Tums? and Rolaids?. Depending on its strength, each chewable pill or softchew provides 200 to 400 mg of elemental calcium. The percentage of calcium absorbed depends on the total amount of elemental calcium consumed at one time. Absorption is highest in doses <500mg. So a woman who takes 1,000mg/day of calcium from supplements should split the dose and take 500mg at two separate times during the day. Too much calcium can cause kidney stones, constipation, difficulty absorbing other nutrients and calcium buildup in blood vessels. Women under 50 should not exceed 2500mg/day (2000mg/day for women over 50) of calcium from food and supplements. Excessive alcohol and caffeine intake can inhibit absorption of calcium. Calcium can reduce the absorption of some medications if taken at the same time of day (bisphosphonates, thyroid medication, Phenytoin and other seizure medications, some antibiotics and iron supplements). Vitamin D promotes calcium absorption in the gut and maintains adequate blood levels of calcium and phosphate for normal bone growth and bone remodeling. Vitamin D also helps regulate cell growth as well as nerve, muscle and immune system function. Vitamin D is produced in the skin as a result of ultraviolet sunlight rays and must be altered in the liver and kidney to become its active form. Recommended intake according to the National Institutes of Health is 600 International Units (IU) for girls and women ages 1-70 and 800 IU for women over 70. Very few foods in nature contain vitamin D. The flesh of fatty fish (such as salmon, tuna, and mackerel) and fish liver oils are among the best sources. Small amounts of vitamin D are found in beef liver, cheese, mushrooms and egg yolks. Most people meet at least some of their vitamin D needs through exposure to sunlight. Season, time of day, length of day, cloud cover, smog, skin melanin content, and sunscreen are among the factors that affect UV radiation exposure and vitamin D synthesis. Despite the importance of the sun for vitamin D synthesis, it is prudent to limit exposure of skin to sunlight and avoid tanning beds. UV radiation is a carcinogen responsible for most of the estimated 1.5 million skin cancers that occur annually in the [place]. Lifetime cumulative UV damage to skin is also responsible for some age-associated dryness and other cosmetic changes. In supplements and fortified foods, vitamin D is available in two forms, D2 (ergocalciferol) and D3 (cholecalciferol). The two are equivalent at normal supplement doses. For women who require high supplement doses because of vitamin D deficiency, D3 may work better to raise blood levels. Some medications can prevent proper absorption of Vitamin D. These include laxatives, corticosteroids like prednisone, the seizure drugs phenobarbital and phenytoin, the weight-loss drug orlistat ( Xenical? and AlliTM) and the cholesterol-lowering drug cholestyramine (Questran?, LoCholest?, and Prevalite?). Talk to your doctor about adjusting your recommended daily vitamin D dosage if you take these medications. You should not exceed 4000 mg of vitamin D supplementation daily unless specifically prescribed by your doctor. ACOG Screening Guidelines (2015) The following health screening schedule is recommended by the [place] [employer] (ACOG). Some of these tests may be ordered or performed by your primary care doctor. Pap test screening The pap test looks at cells on the cervix (the opening from the vagina to the uterus) to look for cancer or pre-cancerous changes. These changes are caused by the human papillomavirus (HPV). Studies estimate that half of all women will test positive for this virus within 3 years of starting sexual activity. For young women with a normal immune system, 90% of HPV infections will resolve within 2 years. There is a vaccine available against some forms of HPV. This is recommended for girls and women age 9-26 and is a series of 3 injections over 6 months. Because this vaccine does not protect against all HPV types which can cause cervical cancer, women who received the vaccine still need pap tests. Pap smear screening should be started at age 21. The pap test should be done every 3 years from age 21-29. From age 30-65, pap smears can be done every 5 years if HPV test is negative or every 3 years if HPV testing is not done. For women over the age of 65, ACOG recommends against screening women who have had adequate prior screening and are not otherwise at high risk for cervical cancer. Women who have had a hysterectomy also do not need routine pap smear screening unless the pap smear was done for a cervical cancer or moderate to severe dysplasia. Breast cancer screening Mammogram should be performed every 1-2 years starting at age 40 and every year starting at age 50. Screening may be started earlier depending on family history. Cholesterol screening Lipid panel (cholesterol test) should be checked every 5 years starting at age 45. Diabetes screening Fasting glucose (blood sugar) test should be performed every 3 years starting at age 45. Colorectal cancer screening Starting at age 50, women should have a screening colonoscopy at least every 10 years. Screening may be started earlier depending on family history. Thyroid screening Thyroid function test (TSH) should be checked every 5 years starting at age 50. Bone mineral density screening All postmenopausal women age 65 and over and postmenopausal women with risk factors for osteoporosis should have a bone mineral density test performed. Risk factors include race, family history of osteoporosis, personal history of fractures, poor nutrition, smoking, heavy alcohol use, early menopause, low calcium intake and low body weight. Certain medical conditions and long-term use of some medications may also increase risk. Many women experience vaginal dryness which can cause discomfort with exercise and sexual activity, especially vaginal intercourse. Common causes of vaginal dryness include menopause, , control pills, cancer treatments and other medications. There are many nqef-gat-htduthu products that are available to treat this condition. Lubricants are a temporary measure to minimize friction and irritation and allow for vaginal intercourse. There are different types of lubricants. Water-based lubricants dry quickly and usually will need to be reapplied during sexual activity. Oil-based lubricants are not compatible with condoms. Silicone-based lubricants should be used with caution in the shower as they can make floors slippery. Household food oils such as olive oil, coconut oil, corn oil and Cristco may increase the risk of vaginal infections such as bacterial vaginosis and yeast. Pre-seed is designed for patients trying to conceive as it does not affect sperm motility. You may need to try several different brands of lubricant until you find the one that works best for you. When choosing a lubricant, avoid those that contain perfumes, flavors or ?warming? ingredients. Benzyl alcohol and glycerin can cause drying and irritation and parabens may be harmful to health. Look for 510(k) Clearance which means that all ingredients are considered safe by the FDA. You can search for approved products on the FDA website at http://www.accessdata.fda.gov/scripts/cdrh/cfdocs/cfpmn/pmn.cfm. Examples of 510(k) cleared lubricants include Uberlube, Sylk, Good Clean Love and Astroglide. Vaginal moisturizers such as Luvena and Replens are designed for regular use several times a week for long-term relief of vaginal dryness. Some formulations contain a pre-biotic to help maintain vaginal pH and protect against bacterial vaginosis and yeast. For post-menopausal women who have persistent vaginal dryness, prescription treatments are available including vaginal estrogen and vaginal laser therapy. Talk to your doctor if your symptoms are not resolved by lubricant or moisturizer use. Referring Provider: GARLAND MOJICA [[id number]] Allergies As of Date: 01/10/2018 Noted Allergy Reaction AMBIEN (ZOLPIDEM TARTRATE) 03/25/2005 1 - Mental Status Change environmental [Other] 03/25/2005 Comments: second hand smoke jalapeno [Other] 03/01/2008 LATEX 08/29/2007 2 - Rash LIPITOR (ATORVASTATIN) 03/25/2005 Comments: muscle aches OAK 12/07/2013 14 - Other: See Comments PENICILLINS 03/25/2005 4 - Hives plastic [Other] 03/25/2005 Comments: ?adhesive=rashy SIMVASTATIN 03/25/2005 14 - Other: See Comments Comments: flu like sxs SULFA (SULFONAMIDE ANTIBIOTICS) 03/25/2005 Comments: uncertai;n Date Reviewed: 01/10/2018 Reviewed by: Karen Tayolr Ma - Fully Assessed Reason for Visit: Yearly Exam [187] Primary Visit Diagnosis:Encounter for gynecological examination without abnormal finding [Z01.419] Other Visit Diagnoses:Visit for screening mammogram [Z12.31] Menopausal state [N95.1] Female genital prolapse, unspecified type [N81.9] Order(s):MAI SCREENING [[id number]] Order #: [id number] FUTURE Prescriptions as of 01/10/2018 Sig: LISINOPRIL 20 MG TABLET Take 20 mg by mouth once bina* CHOLECALCIFEROL (VITAMIN D3) * Take 1,000 Units by mouth onc* CALTRATE PLUS ORAL Take by mouth daily at bedti* LEVOTHYROXINE 175 MCG TABLET Take 1 tablet by mouth once d* ALFALFA 250 MG TABLET Take 2 tablets by mouth twice* BENADRYL 25 MG CAPSULE Take two(2) at bedtime NORVASC 5 MG TABLET Take one(1) tablet daily. ATENOLOL 25 MG TABLET Take one(1) tablet daily. FLAXSEED ORAL Take by mouth. Put seeds on * Problem List As Of Date 01/10/2018 Noted Resolved Thyroid CA [C73] INVALID FOR* More... URGENCY OF URINATION [R39.15] INVALID FOR* URGE INCONTINENCE [N39.41] INVALID FOR* FEMALE STRESS INCONTINENCE [N39.3] INVALID FOR*11/08/2008 ATROPHIC VAGINITIS [N95.2] INVALID FOR* Urethral caruncle [N36.2] INVALID FOR*11/26/2011 CYSTOCELE, MIDLINE [N81.11] INVALID FOR* BONE AND CARTILAGE DIS NOS [M89.9, M94.9] INVALID FOR* UNSP ABNORMAL MAMMOGRAM [R92.8] INVALID FOR* Vitamin D deficiency [E55.9] INVALID FOR* Osteopenia [M85.80] Depressive disorder, not elsewhere classified [* MVP (mitral valve prolapse) [I34.1] Sleep disturbance, unspecified [G47.9] GERD (gastroesophageal reflux disease) [K21.9] Unspecified hemorrhoids with other complication* Diverticulosis of colon (without mention of hem* Uterovaginal prolapse, incomplete [N81.2] INVALID FOR* Diaphragmatic hernia without mention of obstruc*INVALID FOR* Duodenitis without mention of hemorrhage [K29.8*INVALID FOR* Esophagitis, unspecified [K20.9] INVALID FOR* Esophageal reflux [K21.9] INVALID FOR* Other instructions from your clinician: Calcium and Vitamin D Supplementation (from the National Institutes of Health Office of Dietary Supplements 2010) Calcium is required by the body for blood vessel, muscle, hormone and nerve functioning. Most of the body's calcium is stored in the bones and teeth where it supports structure and function. Bone is continuously broken down and reformed. When bone breakdown exceeds formation, especially in postmenopausal women, bone loss can increase the risk of osteoporosis and fractures. In addition to low calcium intake, women who smoke, have a family history of osteoporosis, are thin, or , or who take certain medications such as cancer chemotherapy, seizure mediations and steroids are at increased risk of osteoporosis. The calcium requirements in women change with age. The National Institutes of Health (NIH) recommends: 1000mg elemental calcium for premenopausal women age 19-50 1200mg elemental calcium for postmenopausal women and all women over 50 Milk, yogurt, and cheese are rich natural sources of calcium and are the major food contributors in the [place]. For example, 8oz of milk (whole, lowfat or skim) contains about 300mg calcium, 8oz of yogurt contains 415mg. Nondairy sources include salmon and sardines and vegetables, such as Bulgarian cabbage, kale, and broccoli. Foods fortified with calcium include many fruit juices, tofu and cereals. For more food calcium content information, visit http://ods.od.nih.gov/factsheets/calcium. Calcium supplements come in several different forms. Remember that the recommendations are for millgrams (mg) of elemental calcium which may be less than the total weight of the supplement. The amount of elemental calcium is required to be printed on the label. Calcium carbonate is the least expensive form. It must be taken on a full stomach to be properly absorbed. Some patients may experience gas or constipation. Calcium phosphate and calcium citrate may be taken either with or without food and tend to have less side effects but are generally more expensive. Because of its ability to neutralize stomach acid, calcium carbonate is found in some fmdc-ftv-mheocog antacid products, such as Tums? and Rolaids?. Depending on its strength, each chewable pill or softchew provides 200 to 400 mg of elemental calcium. The percentage of calcium absorbed depends on the total amount of elemental calcium consumed at one time. Absorption is highest in doses <500mg. So a woman who takes 1,000mg/day of calcium from supplements should split the dose and take 500mg at two separate times during the day. Too much calcium can cause kidney stones, constipation, difficulty absorbing other nutrients and calcium buildup in blood vessels. Women under 50 should not exceed 2500mg/day (2000mg/day for women over 50) of calcium from food and supplements. Excessive alcohol and caffeine intake can inhibit absorption of calcium. Calcium can reduce the absorption of some medications if taken at the same time of day (bisphosphonates, thyroid medication, Phenytoin and other seizure medications, some antibiotics and iron supplements). Vitamin D promotes calcium absorption in the gut and maintains adequate blood levels of calcium and phosphate for normal bone growth and bone remodeling. Vitamin D also helps regulate cell growth as well as nerve, muscle and immune system function. Vitamin D is produced in the skin as a result of ultraviolet sunlight rays and must be altered in the liver and kidney to become its active form. Recommended intake according to the National Institutes of Health is 600 International Units (IU) for girls and women ages 1-70 and 800 IU for women over 70. Very few foods in nature contain vitamin D. The flesh of fatty fish (such as salmon, tuna, and mackerel) and fish liver oils are among the best sources. Small amounts of vitamin D are found in beef liver, cheese, mushrooms and egg yolks. Most people meet at least some of their vitamin D needs through exposure to sunlight. Season, time of day, length of day, cloud cover, smog, skin melanin content, and sunscreen are among the factors that affect UV radiation exposure and vitamin D synthesis. Despite the importance of the sun for vitamin D synthesis, it is prudent to limit exposure of skin to sunlight and avoid tanning beds. UV radiation is a carcinogen responsible for most of the estimated 1.5 million skin cancers that occur annually in the [place]. Lifetime cumulative UV damage to skin is also responsible for some age-associated dryness and other cosmetic changes. In supplements and fortified foods, vitamin D is available in two forms, D2 (ergocalciferol) and D3 (cholecalciferol). The two are equivalent at normal supplement doses. For women who require high supplement doses because of vitamin D deficiency, D3 may work better to raise blood levels. Some medications can prevent proper absorption of Vitamin D. These include laxatives, corticosteroids like prednisone, the seizure drugs phenobarbital and phenytoin, the weight-loss drug orlistat ( Xenical? and AlliTM) and the cholesterol-lowering drug cholestyramine (Questran?, LoCholest?, and Prevalite?). Talk to your doctor about adjusting your recommended daily vitamin D dosage if you take these medications. You should not exceed 4000 mg of vitamin D supplementation daily unless specifically prescribed by your doctor. ACOG Screening Guidelines (2015) The following health screening schedule is recommended by the [place] [employer] (ACOG). Some of these tests may be ordered or performed by your primary care doctor. Pap test screening The pap test looks at cells on the cervix (the opening from the vagina to the uterus) to look for cancer or pre-cancerous changes. These changes are caused by the human papillomavirus (HPV). Studies estimate that half of all women will test positive for this virus within 3 years of starting sexual activity. For young women with a normal immune system, 90% of HPV infections will resolve within 2 years. There is a vaccine available against some forms of HPV. This is recommended for girls and women age 9-26 and is a series of 3 injections over 6 months. Because this vaccine does not protect against all HPV types which can cause cervical cancer, women who received the vaccine still need pap tests. Pap smear screening should be started at age 21. The pap test should be done every 3 years from age 21-29. From age 30-65, pap smears can be done every 5 years if HPV test is negative or every 3 years if HPV testing is not done. For women over the age of 65, ACOG recommends against screening women who have had adequate prior screening and are not otherwise at high risk for cervical cancer. Women who have had a hysterectomy also do not need routine pap smear screening unless the pap smear was done for a cervical cancer or moderate to severe dysplasia. Breast cancer screening Mammogram should be performed every 1-2 years starting at age 40 and every year starting at age 50. Screening may be started earlier depending on family history. Cholesterol screening Lipid panel (cholesterol test) should be checked every 5 years starting at age 45. Diabetes screening Fasting glucose (blood sugar) test should be performed every 3 years starting at age 45. Colorectal cancer screening Starting at age 50, women should have a screening colonoscopy at least every 10 years. Screening may be started earlier depending on family history. Thyroid screening Thyroid function test (TSH) should be checked every 5 years starting at age 50. Bone mineral density screening All postmenopausal women age 65 and over and postmenopausal women with risk factors for osteoporosis should have a bone mineral density test performed. Risk factors include race, family history of osteoporosis, personal history of fractures, poor nutrition, smoking, heavy alcohol use, early menopause, low calcium intake and low body weight. Certain medical conditions and long-term use of some medications may also increase risk. Many women experience vaginal dryness which can cause discomfort with exercise and sexual activity, especially vaginal intercourse. Common causes of vaginal dryness include menopause, , control pills, cancer treatments and other medications. There are many qovx-qli-zuuqhln products that are available to treat this condition. Lubricants are a temporary measure to minimize friction and irritation and allow for vaginal intercourse. There are different types of lubricants. Water-based lubricants dry quickly and usually will need to be reapplied during sexual activity. Oil-based lubricants are not compatible with condoms. Silicone-based lubricants should be used with caution in the shower as they can make floors slippery. Household food oils such as olive oil, coconut oil, corn oil and Cristco may increase the risk of vaginal infections such as bacterial vaginosis and yeast. Pre-seed is designed for patients trying to conceive as it does not affect sperm motility. You may need to try several different brands of lubricant until you find the one that works best for you. When choosing a lubricant, avoid those that contain perfumes, flavors or ?warming? ingredients. Benzyl alcohol and glycerin can cause drying and irritation and parabens may be harmful to health. Look for 510(k) Clearance which means that all ingredients are considered safe by the FDA. You can search for approved products on the FDA website at http://www.accessdata.fda.gov/scripts/cdrh/cfdocs/cfpmn/pmn.cfm. Examples of 510(k) cleared lubricants include Uberlube, Sylk, Good Clean Love and Astroglide. Vaginal moisturizers such as Luvena and Replens are designed for regular use several times a week for long-term relief of vaginal dryness. Some formulations contain a pre-biotic to help maintain vaginal pH and protect against bacterial vaginosis and yeast. For post-menopausal women who have persistent vaginal dryness, prescription treatments are available including vaginal estrogen and vaginal laser therapy. Talk to your doctor if your symptoms are not resolved by lubricant or moisturizer use. Disposition: Return in 1 year (on 01/10/2019) for Annual Exam. Follow-up and Disposition History Recorded Encounter Status:Closed by GARLAND HUMMEL MD on 01/10/18 PROGRESS Observed: 01/10/2018 Status: COMPLETED Source: [place] 9:44 AM [facility] [place] REPOSITORY O ID: [id number] Author: Garland Hummel Service: (none) Author Type: Physician Type: Progress Notes Filed: 01/10/2018 10:37 AM Note Text: Lilliana Huber is a 72 year old who presents for her annual gynecologic exam with complaints, vaginal dryness. Pt has 7 grandchildren- one is in residency in [place]. Heading to [facility] for winter. Postmenopausal: Yes HRT use: No. Last Pap: 2010 normal HPV: 2010 negative History of abnormal pap: No Last mammogram: 2018 patient getting mammogram today, results pending. History of abnormal mammogram: No Sexually active: Yes Pain with intercourse: No Postcoital bleeding: No Hot flashes: No Exercise: routine Diet: Balanced Obstetric History T0 L1 SAB0 TAB0 Ectopic0 Multiple0 Live Births0 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 Thyroid cancer - Osteopenia no currently osteopenia - Postmenopausal atrophic vaginitis - Rotator cuff syndrome of shoulder and allied disorders Rotator cuff syndrome - Symptomatic menopausal or female climacteric states - Unspecified constipation Constipation resolved - Unspecified essential hypertension Essential hypertension - Unspecified hypothyroidism Hypothyroidism - Urge incontinence very Mild - Urgency of urination - Uterovaginal prolapse, incomplete PAST SURGICAL HISTORY Procedure Laterality Date - BX BREAST PERC VACUUM/ROTN Right - benign - COLONOSCOP W/ OR W/O [facility] SPEC 10/20/2012 Colonoscopy - DANDC, DIAG AND/OR THERAPEUTIC Dilation AND curettage - EGD W/O [facility] SPECIMEN W/BX 12/25/10 - LIGATE FALLOPIAN TUBE Tubal ligation - PAST SURGICAL HISTORY OF peridontal - REPAIR UMBILICAL AMAYA,<5Y/O,REDUC Hernia repair, umbilical - THYROIDECTOMY FAMILY HISTORY Problem Relation Age of Onset - Hypertension Mother - Heart Mother - Heart Maternal Grandmother - Breast Cancer Maternal Aunt age 50 SOCIAL HISTORY Social History Substance Use Topics - Smoking status: Never Smoker - Smokeless tobacco: Never Used - Alcohol use No REVIEW OF SYSTEMS Abdomen: No abdominal pain, nausea, vomiting, diarrhea, or constipation. No bloating, early satiety, indigestion, or increased flatulence. Bladder: No dysuria, gross hematuria, urinary urgency, or incontinence- Urinary frequency Breast: No breast lumps, nipple d/c, overlying skin changes, redness or skin retraction Allergies and current medication updated:Yes EXAM: BP 120/68 Ht 5' 2 (1.58m) Wt 167 lb (75.8kg) BMI 30.54 kg/(m2). GENERAL: pleasant, female in no apparent distress HEENT: Normocephalic, atraumatic, mucus membranes moist and no lesions NECK: Supple, full range of motion, no adenopathy and thyroid normal DERMATOLOGY: Normal, without lesions, non-icteric and non-hirsute BREAST: soft, non-tender, symmetric, no dominant mass, normal nipple-areolar complex, no lymphadenopathy and no nipple discharge ABDOMEN: soft, non-tender and no masses PELVIC: external genitalia normal, normal Bartholin's glands, urethra, Mcqueeney's glands, no vulvar lesions, no cervical lesions, physiologic discharge present, normal appearing perineal body and perianal region, cystocele 3rd degree, cervical prolapse 2nd degree BIMANUAL: uterus normal size, shape and consistency, no adnexal masses and non-tender RECTOVAGINAL: deferred. NEURO: alert and oriented x3,exam grossly non-focal EXTREMITIES: normal ASSESSMENT/PLAN: 1) Health maintenance: Pap/HPV screening no longer needed Mammogram ordered Mammogram up to date Nutrition, exercise and routine health maintenance exams reviewed. Calcium/Vitamin D supplementation information provided. Colon cancer screening: up to date with screening BMD: followed by PCP 2) Follow up one year or sooner as needed 3) reviewed Prolapse- does not splint - reviewed Pessary vs surgical options- pt is asymptomatic at this time- instructed to call office if she experiences pain/pressure/inability to urinate etc. Garland Perales MD CNCO Observed: 01/10/2018 Status: COMPLETED Source: [place] 9:24 AM [facility] RE[facility]ITORY HNO ID: [id number] Author: Mammography Coordinator Service: (none) Author Type: Physician Type: Letter Filed: 01/11/2018 11:31 PM Note Text: January 10, 2018 PID: [id number] Lilliana Huber [address] [place], [place] [id number] Dear Ms. Huber, We are pleased to inform you that the results of your recent breast imaging exam on 01/10/2018 are normal. Early detection of cancer is very important. We also understand recommendations regarding breast cancer screening are controversial. Please discuss with your primary care provider which strategy is best for you and whether a mammogram is right for you. Your imaging studies and report will be kept on file at [facility] as part of your permanent medical record and are available for your continuing care. Thank you for allowing us to help in meeting your health care needs. Sincerely, Dr. Mitchell Interpreting Radiologist [facility] (Normal over 40) PROGRESS Observed: 01/10/2018 Status: COMPLETED Source: [place] 9:08 AM [facility] REPOSITORY HNO ID: [id number] Author: Karen Taylor Ma Service: (none) Author Type: (none) Type: Progress Notes Filed: 01/10/2018 10:37 AM Note Text: Mailing Manager offered: Patient declines. MAI SCREENING Observed: 01/10/2018 Status: F Source: [place] 8:58 AM [facility] REPOSITORY * * *Final Report* * * DATE OF EXAM: Jan 10 2018 8:58AM WOW 0581 - [facility] SCREENING / PROCEDURE REASON: Encounter for screening mammogram for malignant neoplasm of breast * * * * Physician Interpretation * * * * RESULT: #[id number] - [facility] SCREENING BILATERAL DIGITAL SCREENING MAMMOGRAM WITH CAD: 01/10/2018 HISTORY: Encounter For Screening Mammogram For Malignant Neoplasm Of Breast /Screening Mammogram - patient reports NO breast symptoms /Priors available for comparison. RESULT: TECHNIQUE: The study was acquired using full field digital technology and interpreted from soft copy. Current study was also evaluated with a Computer Aided Detection (CAD). Comparison is made to exams dated: 12/31/2016 mammogram, 12/24/2015 mammogram, and 12/21/2014 mammogram - [facility]. There are scattered fibroglandular elements in both breasts. There is a biopsy clip in the right breast. No significant masses, calcifications, or other findings are seen in either breast. There has been no significant interval change. IMPRESSION: NEGATIVE There is no mammographic evidence of malignancy.A 1 year screening mammogram is recommended. Bhavani Mitchell M.D., cp/kaylin:01/10/2018 09:24:53 Campus Rep: Wandy CURIEL(Rabia)(Dominic), [facility] letter sent: Normal over 40 Mammogram BI-RADS: 1 Negative Multiple national specialty organizations have released breast cancer screening guidelines for women at average risk for developing breast cancer - guidelines that are based on both evidence and opinion, yet differ on when to start and how often to screen for breast cancer. With representation from Breast Imaging, Internal Medicine, Women's Health, Family Medicine, and Medical/Surgical Oncology, the [facility] has carefully reviewed the data and reached the following consensus: 1) All women should engage in shared decision-making with their providers to decide when to start and how often to screen; 2) All women should have the opportunity to start screening mammography at age 40; 3) For women ages 45-55, we recommend annual screening mammograms; 4) For women ages 55 and over, we support both the transition from an annual to a biennial interval if this aligns more with patient's values and preferences, or continuation with annual screening; 5) All women should discuss with their providers when to stop screening mammograms. [place] Paver: Kaylin Transcribe Date/Time: Jan 10 2018 8:35A Dictated by: BHAVANI MITCHELL MD This examination was interpreted and the report reviewed and electronically signed by: BHAVANI MITCHELL MD on Jan 10 2018 9:24AM EST [id number] CHEST PA AND LATERAL Observed: 12/23/2017 Status: F Source: [place] 9:31 AM [facility] REPOSITORY [facility] Imaging Services [address] [place] [address] Chest PA and Lateral MR#: [id number] Acct: [id number] Name: LILLIANA HUBER Rep #: [id number] : 1945 F 72 From: Nathan Johns MD PCP: Elis Cardenas DO Status: REG CLI Study: Chest PA and Lateral Date of Exam: 12/23/17 Exam# [id number] Ordering Dr: Susan Moss MD STUDY: X-RAY CHEST REASON FOR EXAM: Female, 72 years old. Cough TECHNIQUE: PA and lateral views of the chest. COMPARISON: 09/12/2015 FINDINGS: The lungs are clear and expanded. There is no demonstrated pleural abnormality. Normal size heart. Normal mediastinum and humaira. Normal visualized pulmonary arteries. There is atherosclerotic calcification of the aortic arch with tortuosity. Normal visualized thoracic spine. Normal visualized ribs, clavicles, and shoulders. There is no demonstrated abnormality of the visualized soft tissue structures of the upper abdomen. RAD/Chest PA and Lateral IMPRESSION: No acute pulmonary process Electronically Signed: Jose Manuel Johns MD at 16:58 EDT , Service support , CC: Susan Moss MD; Elis Cardenas DO [place] Paver: Signed OPERATIVE REPORT Observed: 12/02/2017 Status: F Source: [place] 7:05 AM [facility] REPOSITORY [facility] Medical Records Department [address] [place] [address] Operative Report 12/01/17 1031 MR#: [id number] Acct: [id number] Name: LILLIANA HUBER Rep #: [id number] : 1945 72 From: Hannah Liz MD PCP: Elis Cardenas DO Status: [facility] Location: EN Report of Operation Date of Procedure: 12/01/17 Pre-Operative Diagnosis: Constipation Post-Operative Diagnosis: Normal colon Surgery/Procedure Performed:: Colonoscopy Type of Anesthesia:: MAC Anesthesiologist: Moy Flynn Specimen's removed: None Estimated Blood Loss (mL): None Description of Procedure: Procedure: Colonoscopy After reviewing the risks benefits, the patient was deemed in satisfactory condition to undergo procedure. After obtaining informed consent, the scope was passed under direct visualization. Throughout the procedure, the patient's blood pressure pulse and position saturations were monitored continuously anesthesia. The colonoscope was introduced through the anus and advanced to the cecum, identified by the appendiceal orifice, IC valve and transillumination. The colonoscopy was performed without difficulty. The patient tolerated procedure well. Quality of bowel prep was good. Findings: The perianal and digital rectal exam were normal. The colon (entire examined portion) appeared normal. Retroflexed view of the distal rectum and anal verge was normal and showed no anal or rectal abnormalities Impression: 1. The entire colon is normal. 2. The distal rectal and anal verge were normal on retroflexed view. Recommendations: High-fiber diet for the constipation Repeat colonoscopy in 10 years for screening purposes - Complications none 12/01/17 1033 <Electronically signed by Hannah Liz MD> Date Hannah Liz MD CC: Elis Cardenas DO; Hannah Liz MD Signed SURGERY VISIT REPORT Observed: 11/26/2017 Status: F Source: [place] 4:42 PM [facility] REPOSITORY [address] [place] [address] OFFICE VISIT Date of Service: 11/10/17 MR#: [id number] Acct: [id number] Name: LILLIANA HUBER Rep #: [id number] : 1945 Provider: Hannah Liz MD Age/Sex: 72/F Location: [facility] Status: Signed Intake Vital Signs11/10/17 Height 5 ft 2 in Intake Visit Reasons: C-Scope Screening/Constipation Manager Brand Required: No Is patient in pain?: No Allergies Penicillins Allergy (Verified 11/10/17 14:25) Rash Sulfa (Sulfonamide Antibiotics) Allergy (Verified 11/10/17 14:25) Rash Fish Containing Products Adverse Reaction (Verified 11/10/17 14:25) Nausea jalepeno Allergy (Uncoded 11/10/17 14:06) lips swelled TAPE Allergy (Uncoded 07/18/18 14:06) Rash Medications Levothyroxine [Synthroid] 175 mcg PO MOTUWETHFRSA 08/31/15 [History Confirmed 11/10/17] Levothyroxine [Synthroid] 1.5 tab PO CHEN 09/02/15 [History Confirmed 11/10/17] Dextran 70/He-Cell [Tears Naturale, Artificial Tears] 1 - 2 drp LEFT EYE Q3H PRN PRN #2 bottle 09/07/15 [Rx Confirmed 11/10/17] Amlodipine Besylate 5 mg PO DAILY 09/22/15 [History Confirmed 11/10/17] Aspirin [Aspirin, Baby] 81 mg PO DAILY@0800 09/22/15 [History Confirmed 11/10/17] Calcium (Elemental) [Os-George 500] 500 mg PO DAILY@1800 tab 10/11/15 [Rx Confirmed 11/10/17] Cholecalciferol (VIT D3) [Vitamin D3] 1,000 unit PO DAILY@1800 tab 10/11/15 [Rx Confirmed 11/10/17] Lisinopril [Zestril] 20 mg PO DAILY #30 tab 10/11/15 [Rx Confirmed 11/10/17] atenolol 25 mg tablet 25 mg PO BID tab 11/10/17 [History Confirmed 11/10/17] PFSH Medical History Vertigo (Acute) Hypovolemia due to dehydration (Acute) Dizziness (Acute) Corrales's palsy (Chronic) Aphthous ulcer of mouth (Acute) Intractable vomiting with nausea (Acute) Hypothyroidism (Chronic) Hyperlipidemia (Chronic) Hypertension (Chronic) GERD (gastroesophageal reflux disease) (Acute) Menieres disease (Suspected) Benign essential hypertension (Chronic) Surgical History H/O hernia repair (Acute) History of thyroidectomy (Acute) Hx of colonoscopy (Acute) Family History Mother Heart disease Social History Smoking Status: Never smoker alcohol intake: never HPI HPI HPI: LILLIANA HUBER, is a 72 F who presents to the office today for evaluation for endoscopy due to constipation. Patient states that last for the last 2 weeks she had to take a stool softener or laxative to have a bowel movement daily and if she takes laxatives she will get diarrhea she also complains that her stool can be thin in caliber. Prior to 2 weeks ago patient states she was having bowel movements daily denies any blood in the stool before 2 weeks or currently. Patient states she has had the same diet throughout. Denies any abdominal pain, nausea, vomiting, fever, chills. ROS General General: No weight change or fatigue Gastro Gastrointestinal: No abdominal pain, Yes diarrhea, Yes constipation, No nausea or vomiting, No blood in stool Exam Const General: cooperative, comfortable, no acute distress Resp Effort AND Inspection: normal respiratory effort GI Inspection: non-distended Palpation: soft, nontender, no guarding Assessment AND Plan Problems 1. Constipation K59.00 Plan I have discussed the above with the patient. I have offered the patient colonoscopy for evaluation. I have explained the risks/benefits of the procedure and described the procedure. I have discussed the risks with the patient, including but not limited to: infection, bleeding, perforation of the GI tract requiring emergency surgery, inability to complete the procedure, injury to any internal organs, complications of anesthesia, etc. - the patient understands and agrees to proceed. I have answered all the patient's questions to the patient's satisfaction and the patient has no further questions. The patient has been given instructions for the colon cleansing preparation-1 day clears, MiraLAX Dulcolax split prep Hannah Liz M.D. Pager: [phone] [facility] [address] [place] [address], [address] [place] [address] Office: [phone] Orders Orders: Plan Detail Follow Up Will schedule colonoscopy Coding Level of Care Code Off vis,new,level 3 Diagnoses Constipation K59.00 11/26/17 1642 <Electronically signed by Hannah Liz MD> Date Hannah Liz MD Cosigner Signature: Date (if applicable) CC: Elis Cardenas DO TXT - BLOOD FLOW Observed: 09/21/2017 Status: F Source: [place] SCREENING 11:46 AM [facility] REPOSITORY [facility] Cardiovascular Services [address] [place] [address] [place] [address] 09/21/17 0820 MR#: [id number] Acct: [id number] Name: LILLIANA HUBER Rep #: [id number] : 1945 71 From: Cipriano Morrison MD Attending Dr: OUT OF TOWN DOCTOR Status: REG REF Ordering Dr: Date: 09/21/17 Location: [facility] Sex: F C Admitted: Carotid Duplex Ultrasound Abdominal Aorta The right ECA velocity is less than 125 cm/s. The maximal outside diameter of the proximal The right maximum ICA velocity is 87.4/25.8 cm/s.aorta measures 1.73 cm in the longitudinal axis. There is significant plaque formation noted on The maximal outside diameter of the proximal the right side. aorta measures 1.72 x 1.89 cm in the cross- The left ECA velocity is less than 125 cm/s. sectional axis. The left maximum ICA velocity is 45.1/13.5 cm/s. There is insignificant plaque formation noted on the left side. Ankle Brachial Index The right ankle/ brachial index is 1.2. The left ankle/ brachial index is 1.2. Medical History and Assessment The client presents with a history of high blood pressure. The heart rate is 62 beats per minute. The heart rhythm is regular. The right blood pressure is 122/62. The left blood pressure is 126/68. The assessment was performed by Gladys Murry RVT. 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 RECOMMEND FOLLOW-UP WITH YOUR DOCTOR. Normal aortic ultrasound exam. The ankle/brachial index is normal (1.0 or greater). Soft plague is noted at the proximal right internal carotid, however, this does not correlate with significant stenosis. Performed By: Ramana Murry RVT 09/21/17 1145 Date Cipriano Morrison MD CC: Elis Cardenas DO; OUT OF TOWN DOCTOR Date Dictated: 09/21/17819 Date Transcribed: 09/21/17 114 [place] Paver: Signed ALLERGIES ALLERGIES DATE TYPE / CODE NAME / CODE REACTION SEVERITY SOURCE Drug Fish Containing Nausea Unknown [place] 8 Allergy/735491076( Products/[id number] [facility] 25(RXNORM) Hospital Repository Drug Penicillins/F0010 Rash Unknown [place] Allergy/708820559( 32984(RXNORM) [facility] Repository Drug Sulfa Rash Unknown [place] Allergy/592041788( (Sulfonamide [facility]) Antibiotics)/F001 Hospital 976439(RXNORM) Repository Miscellaneous TAPE Rash Unknown [place] [facility] Allergy/314421786( [facility] Repository Miscellaneous jalepeno lips swelled Unknown [place] Allergy/821837827( [facility] SNOMED [facility]) Hospital Repository DRUG OAK OTHER: SEE Nicol [place] 4 INGREDI/192855948( Clinic Main SNOMED CT) [place] Repository Miscellaneous OTHER [place] 8 Allergy/054982693( Clinic Main SNOMED CT) [place] Repository DRUG LATEX RASH [place] 8 INGREDI/109905919( Clinic Main SNOMED CT) [place] Repository DRUG ZOLPIDEM TARTRATE Mental Chg [place] 5 INGREDI/770702176( Clinic Main SNOMED CT) [place] Repository DRUG ATORVASTATIN [place] 5 INGREDI/888802444( Clinic Main SNOMED CT) [place] Repository Drug PENICILLINS HIVES [place] 5 Class/462587834(SN [facility] Main OMED CT) [place] Repository DRUG SIMVASTATIN OTHER: SEE Nicol [place] 5 INGREDI/522144858( Clinic Main SNOMED CT) [place] Repository Drug SULFA [place] 5 Class/912207187(SN (SULFONAMIDE Clinic Main OMED CT) ANTIBIOTICS) [place] Repository ENCOUNTERS ENCOUNTERS ADMIT/DISCHARGE ACCOUNT ADMITTING ENCOUNTER LOCATION SOURCE NUMBER CLASS 02/25/2018 [id number] [facility] Hospital ing[facility]ository 02/25/2018 [id number] Ambulatory BMSBuilding:Mike Abebe MS.CF.[facility] Repository 02/16/2018 [id number] Amb[facility] ing:[facility] Repository E 01/28/2018/02/01/20 [id number] Ambulatory [address] Repository 01/27/2018/01/29/20 [id number] Ambulatory [address] Repository 01/10/2018/01/12/20 [id number] Ambulatory [address] Repository 01/10/2018/01/11/20 [id number] Ambulatory [address] Repository 12/23/2017 [id number] Ambulatory [facility] Hospital ing:HPRAD Repository 12/01/2017/12/02/19 [id number] Ambulatory [address] Hospital ing:ENRoom: Repository AC14 12/01/2017 [id number] Ambulatory BMSBuilding:B Andrae MS.CF.[facility] Repository 11/10/2017 [id number] Ambulatory BMSBuilding:B Andrae MS.[facility] Repository 11/10/2017/11/11/19 [id number] Ambulatory BMSBuilding:Mike Abebe 16 MS.[facility] Repository 09/21/2017 [id number] Ambulatory [facility] Hospital ing:[facility] Repository PAYERS PAYERS ENCOUNTER GUARANTOR PAYER SUBSCRIBER SOURCE 02/25/2018 LILLIANA Bernal Primary LILLIANA [id number] Insurance:MEDICARE [facility]: [facility] PART A BPolicy Number: [id number] [id number] Repository 62628Iuv: (330) Date:2018-02-14 [phone] () 02/25/2018 Secondary LILLIANA L Andare Insurance:HUMANA HILTYDOB: Community COMMERCIALPolicy [id number] Hospital Number: Repository [id number] Date:2153-40-91AM [address] [place] [id number]: 02/25/2018 Tertiary NOT GIVENUNK Andrae Insurance:SELF PAY [facility] Effective Repository Date:2018-02-14 02/25/2018 LILLIANA Bernal Primary LILLIANA Abebe [id number] Insurance:MEDICARE HILTYDOB: Community JEW PART A BPolicy Number: [id number], [place] [id number] Repository 30239Cxr: ([phone]) Date:2018-02-14 [phone] () 02/25/2018 Secondary LILLIANA Bernal Andrae Insurance:HUMANA HILTYDOB: Community COMMERCIALPolicy [id number] Hospital Number: Repository [id number] Date:9386-91-01JT [address] [place] [id number]: 02/25/2018 Tertiary NOT GIVENUNK Andrae Insurance:SELF PAY [facility] Number: Effective Repository Date:2018-02-25 02/16/2018 LILLIANA Bernal Primary LILLIANA Galvanoster [id number] Insurance:MEDICARE HILTYDOB: Community JEW PART A BPolicy Number: [id number], [place] [id number] Repository 58[address]Otk: ([phone]) Date:[phone] () 02/16/2018 Secondary LILLIANA Bernal [place] Insurance:HUMANA HILTYDOB: Community COMMERCIALPolicy [id number] Hospital Number: Repository [id number] Date:8810-95-88ME [address] [place] [id number]: 02/16/2018 Tertiary NOT GIVENUNK Andrae Insurance:SELF PAY [facility] Number: Effective Repository Date:2018-02-15 12/23/2017 Boy Navas Primary LILLIANA Bernal [place] [id number] Insurance:MEDICARE HILTYDOB: Community [employer] PART A BPolicy Number: [id number], [place] [id number] Repository [address]Swm: 330) Date:2017-12-23 [phone] () 12/23/2017 Secondary LILLIANA Bernal [place] Insurance:HUMANA HILTYDOB: [facility] [id number] Hospital Number: Repository [id number] Date:1714-60-07DB [address] [place] [id number]: 12/23/2017 Tertiary NOT GIVENUNK Andrae Insurance:SELF PAY [facility] Number: Effective Repository Date:2017-12-23 12/01/2017 Boy Navas Primary LILLIANA Bernal [place]rae [id number] Insurance:MEDICARE HILTYDOB: Community [employer]ational PART A BPolicy Number: [id number] Push, [place] [id number] Repository 26934Bvg: 330) Date:2017-11-10 [phone] () 12/01/2017 Secondary LILLIANA L Andrae Insurance:HUMANA HILTYDOB: [facility] [id number] Hospital Number: Repository [id number] Date:5898-38-75II [address] [place] [phone]: 12/01/2017 Tertiary NOT GIVENUNK [place] Insurance:SELF PAY [facility] Number: Effective Repository Date:2017-11-10 12/01/2017 Boy Navas Primary LILLIANA Bernal [place]rae [id number] Insurance:MEDICARE HILTYDOB: Community [employer] PART A BPolicy Number: [id number] [place], [place] [id number] Repository [address]Vlh: 330) Date:2017-11-10 [phone] () 12/01/2017 Secondary LILLIANA L [place] Insurance:HUMANA HILTYDOB: [facility] [id number] Hospital Number: Repository [id number] Date:7695-09-31ZV [address] [place] [phone]: 12/01/2017 Tertiary NOT GIVENUNK Andrae Insurance:SELF PAY [facility] Number: Effective Repository Date:2017-12-01 11/10/2017 Boy K Primary LILLIANA PADRONB: [place] [id number] Insurance:MEDICARE [id number] [facility] hospital PART A BPolicy Number: [place], [place] [id number] Repository [address]Hja: (119) Date:2017-11-09 [phone] () 11/10/2017 Secondary LILLIANA PADRONB: [place] Insurance:HUMANA [id number] Number: Repository [id number] Date:7610-17-44AA [address] [place] [phone]: 11/10/2017 Tertiary NOT GIVENUNK Andrae Insurance:SELF PAY [facility] Number: Effective Repository Date:2017-11-09 11/10/2017 Boy K Primary LILLIANA PADRONB: Andrae [id number] Insurance:MEDICARE [id number] access hospital PART A BPolicy Number: [place], [place] [id number] Repository [address]Eua: (562) Date:2017-11-09 [phone] () 11/10/2017 Secondary LILLIANA PADRONB: Andrae Insurance:HUMANA [id number] Number: Repository [id number] Date:9185-03-89XP [address] [place] [phone]: 11/10/2017 Tertiary NOT GIVENUNK Andrae Insurance:SELF PAY [facility] Number: Effective Repository Date:2017-11-10 09/21/2017 Boy K Primary Insurance:SELF NOT GIVENUNK [place] [id number] [facility] Number: Effective [place] Date:2017-08-31 Repository [id number]: (HP)
== END ==
PROVIDERS: Family Provider Family Medicine; PCP Family Medicine; Visit Provider Family Medicine
DX: E78.5 Hyperlipidemia, unspecified (principal); R41.89 Other symptoms and signs involving cognitive functions and awareness; I10 Essential (primary) hypertension; E03.9 Hypothyroidism, unspecified; E56.9 Vitamin deficiency, unspecified
CPT/HCPCS: 36415; 80053; 80061; 82607; 83540; 85025

== ENCOUNTER → 2018-02-25 12:52 | Outpatient (CLI) | payer MEDICARE, OTHER, SELFPAY | PROVIDERS: Family Provider Family Medicine; PCP Family Medicine; Referring Provider Family Medicine; Visit Provider Family Medicine | DX: I65.21 Occlusion and stenosis of right carotid artery (principal) | CPT/HCPCS: 93880 ==

== ENCOUNTER → 2018-08-10 | Outpatient (CLI) | payer MEDICARE, OTHER, SELFPAY ==
[2018-08-10 12:46] LABS: ALB/GLOB Ratio 1.2 RATIO (0.9-2.4); AST(SGOT) 18 U/L (15-37); Alanine Aminotransfer ALT/SGPT 23 U/L (13-56); Albumin, Serum 3.8 g/dL (3.2-5.0); Alkaline Phosphatase 75 U/L (45-117); Anion Gap 6 (5-15); BUN 18 mg/dL (7-18); BUN/Creat Ratio 20.8 RATIO (10-20); Calcium,Total 9.1 mg/dL (8.5-10.1); Chloride 106 mmol/L (98-107); Cholesterol 270 mg/dL (200); Creatinine, Serum 0.86 mg/dL (0.55-1.02); EST Glomerular Filtration Rate 68 mL/min (>60); Est Glom Filt Rate - Afr Amer 82 mL/min (>60); Free T3 2.2 pg/mL (2.18-3.98); Globulin 3.3 g/dL (2.2-4.2); Glucose 86 mg/dL (74-106); High Density Lipoprotein 52 mg/dL; Potassium 4.4 mmol/L (3.5-5.1); Protein, Total 7.1 g/dL (6.4-8.2); Sodium Level 138 mmol/L (136-145); T4 Free Direct 1.44 ng/dL (0.76-1.46); Thyroid Stim Hormone (TSH) 4.49 uIU/mL (0.358-3.74); Triglycerides 305 mg/dL; Very Low Density Lipoprotein 61 mg/dL (5-40)
[2018-08-10 14:54] LABS: Vitamin D,25 Hydroxy 35.4 ng/mL (29.95-100.01)
[2018-08-10 17:38] LABS: Absolute Lymphocyte Count 1.59 X10^3/ul (0.83-4.51); Absolute Neutrophil Count 2.7 X10^3/uL (2.0-7.7); Basophil# 0.06 X10^3/uL; Basophil% 1.2 % (0-1); Eosinophil# 0.13 X10^3/uL; Eosinophils% 2.7 % (0-5); Hematocrit 41.3 % (37-47); Hemoglobin 13.6 g/dl (12.0-15.0); Lymphocyte # 1.59 X10^3/ul (4.0); Lymphocyte % 32.4 % (19-41); Mean Corp Hgb Conc 32.9 g/gl (32-36); Mean Corpuscular Hgb 30.6 pg (27.0-32.0); Mean Corpuscular Volume 92.8 fL (81-99); Mean Platelet Vol. 9.4 fl (6.2-12.0); Monocyte# 0.37 X10^3/uL; Monocyte% 7.6 % (0-10); Neutrophil # 2.74 X10^3/uL (2.7-7.7); Neutrophil % 55.9 % (47-70); Platelet Count 259 K/mm3 (150-450); RBC Distribution Width CV 13.9 % (11.6-14.6); Red Blood Count 4.45 M/mm3 (4.2-5.4); White Blood Count 4.9 K/mm3 (4.4-11.0)
[2018-08-10 18:03] LABS: POSITIVE COUNT NO; POSITIVE DIFFERENTIAL NO; POSITIVE MORPHOLOGY NO
== END | disposition home or self-care (01) ==
LOC: LAB.FUTURE 08:17
PROVIDERS: Family Provider Family Medicine; PCP Family Medicine; Visit Provider Family Medicine
DX: E78.5 Hyperlipidemia, unspecified (principal); I10 Essential (primary) hypertension; E03.9 Hypothyroidism, unspecified; E55.9 Vitamin D deficiency, unspecified; Z51.81 Encounter for therapeutic drug level monitoring
CPT/HCPCS: 36415; 80053; 80061; 82306; 84439; 84443; 84481; 85025

== ENCOUNTER → 2018-11-02 | Outpatient (CLI) | payer MEDICARE, OTHER, SELFPAY ==
[2017-12-01 09:39] VITALS: BMI 30.9
[2018-11-02 12:15] LABS: Absolute Lymphocyte Count 1.56 X10^3/ul (0.83-4.51); Absolute Neutrophil Count 4.3 X10^3/uL (2.0-7.7); Basophil# 0.05 X10^3/uL; Basophil% 0.8 % (0-1); Eosinophil# 0.09 X10^3/uL; Eosinophils% 1.4 % (0-5); Hematocrit 42.4 % (37-47); Hemoglobin 13.9 g/dl (12.0-15.0); Lymphocyte # 1.56 X10^3/ul (4.0); Mean Corp Hgb Conc 32.8 g/gl (32-36); Mean Corpuscular Hgb 29.6 pg (27.0-32.0); Mean Corpuscular Volume 90.4 fL (81-99); Mean Platelet Vol. 9.3 fl (6.2-12.0); Monocyte# 0.49 X10^3/uL; Monocyte% 7.5 % (0-10); Neutrophil # 4.31 X10^3/uL (2.7-7.7); Neutrophil % 66.1 % (47-70); Platelet Count 262 K/mm3 (150-450); RBC Distribution Width CV 13.3 % (11.6-14.6); RBC Distribution Width SD 43.4 fl (35.1-43.9); Red Blood Count 4.69 M/mm3 (4.2-5.4); White Blood Count 6.5 K/mm3 (4.4-11.0)
[2018-11-02 12:19] LABS: POSITIVE COUNT NO; POSITIVE DIFFERENTIAL NO; POSITIVE MORPHOLOGY NO
[2018-11-02 12:23] LABS: Anion Gap 8 (5-15); BUN 25 mg/dL (7-18); BUN/Creat Ratio 30.3 RATIO (10-20); Calcium,Total 8.8 mg/dL (8.5-10.1); Chloride 109 mmol/L (98-107); Creatinine, Serum 0.82 mg/dL (0.55-1.02); EST Glomerular Filtration Rate 72 mL/min (>60); Est Glom Filt Rate - Afr Amer 87 mL/min (>60); Glucose 114 mg/dL (74-106); Potassium 4.5 mmol/L (3.5-5.1); Sodium Level 137 mmol/L (136-145)
[2018-11-02 12:49] LABS: Erythrocyte Sedimentation Rate 9 mm/hr (0-30)
== END | disposition home or self-care (01) ==
PROVIDERS: Family Provider Family Medicine; PCP Family Medicine; Visit Provider Family Medicine
DX: I10 Essential (primary) hypertension (principal); R51 Headache; J34.89 Other specified disorders of nose and nasal sinuses
CPT/HCPCS: 36415; 80048; 85025; 85652

== ENCOUNTER → 2018-11-11 | Outpatient (CLI) | payer MEDICARE, OTHER, SELFPAY ==
--- NOTE | 2018-11-11 07:14 | CT_ITS ---
STUDY: CT BRAIN WITH AND WITHOUT CONTRAST REASON FOR EXAM: Female, 73 years old. History of Corrales's palsy. Vertigo. Loss of smell. RADIATION DOSAGE (If Supplied By Facility): CTDIvol = ( 44.99 ) mGy, DLP = ( 1614.72 ) mGycm TECHNIQUE: Transaxial CT imaging of the brain was performed pre and post contrast administration. The examination was performed with intravenous administration of 50 IV Isovue 370. Individualized dose optimization techniques were used for this CT. COMPARISON: Comparison is made with prior examination dated September 02, 2015. FINDINGS: Normal soft tissue structures. Normal calvarium. There is mild cerebral atrophy with widening of the extra-axial spaces and ventricular dilatation. There are areas of decreased attenuation within the white matter tracts of the supratentorial brain, consistent with microvascular disease changes. Old small lacunae in the left basal ganglion and left thalamus. Normal brainstem. Normal cerebellum. There is no intracranial hemorrhage. There are no findings of an acute ischemic infarction. Atherosclerotic calcification of the vertebral arteries and cavernous portions of the internal carotid arteries as well as branches of the middle cerebral arteries. Normal visualized paranasal sinuses. CT/Brain/Head W/WO Contrast IMPRESSION: Chronic involutional changes of the brain. Old lacunae in the left basal ganglion and left thalamus. Electronically Signed: Matthias Holland, at 9:08 EDT , Service support ,
== END | disposition home or self-care (01) ==
LOC: CT 07:11
PROVIDERS: Family Provider Family Medicine; PCP Family Medicine; Referring Provider Family Medicine; Visit Provider Family Medicine
DX: R51 Headache (principal); H53.2 Diplopia
CPT/HCPCS: 70470; Q9967

== ENCOUNTER → 2019-02-01 | Outpatient (CLI) | payer MEDICARE, OTHER, SELFPAY ==
[2017-12-01 09:39] VITALS: BMI 30.9
[2019-02-01 12:54] LABS: Free T3 2.4 pg/mL (2.18-3.98); T4 Free Direct 1.39 ng/dL (0.76-1.46); Thyroid Stim Hormone (TSH) 1.38 uIU/mL (0.358-3.74)
== END | disposition home or self-care (01) ==
LOC: LAB.FUTURE 08:43
PROVIDERS: Family Provider Family Medicine; PCP Family Medicine; Visit Provider Family Medicine
DX: E03.9 Hypothyroidism, unspecified (principal)
CPT/HCPCS: 36415; 84439; 84443; 84481

== ENCOUNTER → 2019-10-12 16:36 | Outpatient (CLI) | payer MEDICARE, OTHER, SELFPAY ==
--- NOTE | 2019-10-12 16:44 | RAD_ITS ---
STUDY: X-RAY - LEFT ANKLE REASON FOR EXAM: Female, 74 years old. TWISTED LEFT FOOT/LEFT ANKLE TODAY. PAIN IN LEFT ANKLE AND ACROSS TOP OF LEFT FOOT. TECHNIQUE: 3 view(s) of the ankle. COMPARISON: None. FINDINGS: Normal visualized distal tibia and fibula. Normal medial and lateral malleoli. Normal tibiotalar articulation and ankle mortise. Normal visualized talus and calcaneus. The visualized subtalar, talonavicular, calcaneocuboid and tarsal articulations are normal. The soft tissue structures are unremarkable. RAD/Ankle min 3 Views IMPRESSION: Normal x-ray examination of the ankle. Electronically Signed: Angelito Narayan, at 17:04 EDT Tel , Service support ,
--- NOTE | 2019-10-12 16:50 | RAD_ITS ---
STUDY: X-RAY - LEFT FOOT CLINICAL: Female, 74 years old. TWISTED LEFT FOOT/LEFT ANKLE TODAY. PAIN IN LEFT ANKLE AND ACROSS TOP OF LEFT FOOT. TECHNIQUE: 3 view(s) of the foot. COMPARISON: None. FINDINGS: Normal talus, calcaneus, and tarsal bones. Normal visualized subtalar, talonavicular, calcaneocuboid, tarsal and tarsometatarsal articulations. Normal metatarsi. Normal metatarsophalangeal joint of the great toe. Normal tibial and fibular sesamoid bones. Normal interphalangeal joint of the great toe. Normal phalanges of the great toe. Normal second through fifth metatarsophalangeal joints. Normal interphalangeal joints and phalanges of the lesser toes. The soft tissue structures are unremarkable. RAD/Foot min 3 Views IMPRESSION: Normal x-ray examination of the foot. Electronically Signed: Angelito Narayan, at 17:03 EDT Tel , Service support ,
== END ==
PROVIDERS: PCP Family Medicine; Referring Provider Family Medicine; Visit Provider Family Medicine
DX: S99.922A Unspecified injury of left foot, initial encounter (principal)
CPT/HCPCS: 73610; 73630

== ENCOUNTER → 2019-11-02 09:23 | Outpatient (CLI) | payer MEDICARE, OTHER, SELFPAY ==
[2019-10-12 17:16] VITALS: BMI 30.9
[2019-11-02 12:53] LABS: Absolute Lymphocyte Count 1.52 X10^3/uL (0.83-4.51); Absolute Neutrophil Count 2.8 X10^3/uL (2.0-7.7); Basophil# 0.04 X10^3/uL; Basophil% 0.8 % (0-1); Eosinophil# 0.17 X10^3/uL; Eosinophils% 3.4 % (0-5); Hematocrit 41.7 % (37-47); Hemoglobin 13.5 g/dL (12.0-15.0); Lymphocyte # 1.52 X10^3/ul (4.0); Lymphocyte % 30.5 % (19-41); Mean Corp Hgb Conc 32.4 g/dL (32-36); Mean Corpuscular Volume 92.7 fL (81-99); Mean Platelet Vol. 9.4 fl (6.2-12.0); Monocyte# 0.46 X10^3/uL; Monocyte% 9.2 % (0-10); NRBC Flagged by Analyzer 0 % (0-5); Neutrophil # 2.76 X10^3/uL (2.7-7.7); Neutrophil % 55.3 % (47-70); Platelet Count 260 K/mm3 (150-450); RBC Distribution Width CV 12.7 % (11.6-14.6)
[2019-11-02 13:18] LABS: ALB/GLOB Ratio 1.1 RATIO (0.9-2.4); AST(SGOT) 10 U/L (15-37); Alanine Aminotransfer ALT/SGPT 17 U/L (13-56); Albumin, Serum 3.8 g/dL (3.2-5.0); Alkaline Phosphatase 74 U/L (45-117); Anion Gap 8 (5-15); BUN 22 mg/dL (7-18); BUN/Creat Ratio 25.3 RATIO (10-20); Calcium,Total 8.8 mg/dL (8.5-10.1); Chloride 104 mmol/L (98-107); Cholesterol 302 mg/dL (200); Creatinine, Serum 0.87 mg/dL (0.55-1.02); EST Glomerular Filtration Rate 67 mL/min (>60); Est Glom Filt Rate - Afr Amer 81 mL/min (>60); Free T3 2.4 pg/mL (2.18-3.98); Globulin 3.5 g/dL (2.2-4.2); Glucose 98 mg/dL (74-106); High Density Lipoprotein 44 mg/dL; Potassium 4.4 mmol/L (3.5-5.1); Protein, Total 7.3 g/dL (6.4-8.2); Sodium Level 138 mmol/L (136-145); T4 Free Direct 1.34 ng/dL (0.76-1.46); Thyroid Stim Hormone (TSH) 1.86 uIU/mL (0.358-3.74); Triglycerides 479 mg/dL
[2019-11-02 13:20] LABS: Vitamin D,25 Hydroxy 37.1 ng/mL
== END ==
PROVIDERS: PCP Family Medicine; Visit Provider Family Medicine
DX: E78.5 Hyperlipidemia, unspecified (principal); I10 Essential (primary) hypertension; E03.9 Hypothyroidism, unspecified; E55.9 Vitamin D deficiency, unspecified; Z51.81 Encounter for therapeutic drug level monitoring
CPT/HCPCS: 36415; 80053; 80061; 82306; 84439; 84443; 84481; 85025

== ENCOUNTER → 2020-02-20 11:01 | Outpatient (CLI) | payer MEDICARE, OTHER, SELFPAY ==
[2019-10-12 17:16] VITALS: BMI 30.9
--- NOTE | 2020-02-20 11:30 | MRI_ITS ---
STUDY: MRI BRAIN WITHOUT CONTRAST REASON FOR EXAM: Female, 74 years old. memory changes TECHNIQUE: Standardized multiplanar fat and water weighted pulse sequences were obtained. COMPARISON: 01/05/2017 FINDINGS: There is mild cerebral atrophy with widening of the extra-axial spaces and ventricular dilatation. There are multiple white matter hyperintensities, distributed throughout the deep white matter tracts of the cerebral hemispheres, consistent with moderate chronic white matter ischemic changes. Normal bilateral basal ganglia. Normal thalami. There is no extra-axial fluid accumulation. Normal flow voids within the major intracranial circulation suggesting patency by spin echo criteria. Normal sella turcica, pituitary gland, infundibular stalk, optic chiasm and hypothalamus. Normal tectal plate and pineal gland. Normal midbrain, sonya and medulla. Normal cerebellum. Normal basal cisterns. MRI/Brain without Contrast IMPRESSION: No acute intracranial abnormality. Moderate chronic microvascular ischemic changes. Electronically Signed: Josette Torres MD at 12:08 EDT Tel , Service support ,
== END ==
PROVIDERS: PCP Family Medicine; Referring Provider Family Medicine; Visit Provider Family Medicine
DX: R41.3 Other amnesia (principal); R51.9 Headache, unspecified; Z86.73 Personal history of transient ischemic attack (TIA), and cerebral infarction without residual deficits
CPT/HCPCS: 70551

== ENCOUNTER → 2020-04-09 17:27 | Outpatient (CLI) | payer MEDICARE, OTHER, SELFPAY ==
[2019-10-12 17:16] VITALS: BMI 30.9
== END ==
PROVIDERS: PCP Family Medicine; Referring Provider Family Medicine; Visit Provider Family Medicine
DX: Z03.818 Encounter for observation for suspected exposure to other biological agents ruled out (principal)
CPT/HCPCS: 87635; C9803; U0003

== ENCOUNTER → 2020-05-06 09:46 | Outpatient (CLI) | payer MEDICARE, OTHER, SELFPAY ==
[2019-10-12 17:16] VITALS: BMI 30.9
[2020-05-06 12:59] LABS: ALB/GLOB Ratio 1.1 RATIO (0.9-2.4); AST(SGOT) 12 U/L (15-37); Alanine Aminotransfer ALT/SGPT 19 U/L (13-56); Albumin, Serum 3.7 g/dL (3.2-5.0); Alkaline Phosphatase 90 U/L (45-117); Anion Gap 6 (5-15); BUN 16 mg/dL (7-18); BUN/Creat Ratio 20.1 RATIO (10-20); Calcium,Total 8.8 mg/dL (8.5-10.1); Chloride 106 mmol/L (98-107); Cholesterol 289 mg/dL (200); EST Glomerular Filtration Rate 74 mL/min (>60); Est Glom Filt Rate - Afr Amer 90 mL/min (>60); Globulin 3.4 g/dL (2.2-4.2); Glucose 94 mg/dL (74-106); High Density Lipoprotein 48 mg/dL; Potassium 4.2 mmol/L (3.5-5.1); Protein, Total 7.1 g/dL (6.4-8.2); Sodium Level 139 mmol/L (136-145); Triglycerides 371 mg/dL; Very Low Density Lipoprotein 74 mg/dL (5-40)
== END ==
PROVIDERS: PCP Family Medicine; Visit Provider Family Medicine
DX: E78.5 Hyperlipidemia, unspecified (principal); Z51.81 Encounter for therapeutic drug level monitoring
CPT/HCPCS: 36415; 80053; 80061

== ENCOUNTER → 2020-07-29 07:35 | Outpatient (CLI) | payer MEDICARE, OTHER, SELFPAY ==
[2019-10-12 17:16] VITALS: BMI 30.9
[2020-07-29 10:32] LABS: ALB/GLOB Ratio 1.1 RATIO (0.9-2.4); AST(SGOT) 11 U/L (15-37); Alanine Aminotransfer ALT/SGPT 18 U/L (13-56); Albumin, Serum 3.7 g/dL (3.2-5.0); Alkaline Phosphatase 89 U/L (45-117); Anion Gap 4 (5-15); BUN 16 mg/dL (7-18); BUN/Creat Ratio 20.1 RATIO (10-20); Calcium,Total 9.3 mg/dL (8.5-10.1); Chloride 106 mmol/L (98-107); Cholesterol 300 mg/dL (200); EST Glomerular Filtration Rate 74 mL/min (>60); Est Glom Filt Rate - Afr Amer 90 mL/min (>60); Free T3 2.2 pg/mL (2.18-3.98); Globulin 3.4 g/dL (2.2-4.2); Glucose 88 mg/dL (74-106); High Density Lipoprotein 54 mg/dL; Potassium 4.1 mmol/L (3.5-5.1); Protein, Total 7.1 g/dL (6.4-8.2); Sodium Level 140 mmol/L (136-145); Thyroid Stim Hormone (TSH) 4.21 uIU/mL (0.358-3.74); Triglycerides 327 mg/dL; Very Low Density Lipoprotein 65 mg/dL (5-40)
== END ==
PROVIDERS: PCP Family Medicine; Referring Provider Family Medicine; Visit Provider Family Medicine
DX: E03.9 Hypothyroidism, unspecified (principal); E78.5 Hyperlipidemia, unspecified; Z51.81 Encounter for therapeutic drug level monitoring
CPT/HCPCS: 36415; 80053; 80061; 84439; 84443; 84481

== ENCOUNTER → 2020-09-26 08:46 | Outpatient (CLI) | payer MEDICARE, OTHER, SELFPAY ==
[2019-10-12 17:16] VITALS: BMI 30.9
--- NOTE | 2020-09-26 08:47 | CDU_ITS ---
Reason For Study: retinal artery occlusion Rt. Velocities/BP Lt. Velocities/BP Prox CCA 50.0/10.7 cm/sec. Prox CCA 66.8/11.0 cm/sec. Mid CCA 60.5/14.2 cm/sec. Mid CCA 66.6/14.9 cm/sec. Dist CCA 60.5/17.7 cm/sec. Dist CCA 53.4/11.7 cm/sec. Prox ICA 57.9/13.5 cm/sec. Prox ICA 58.9/11.7 cm/sec. Mid ICA 59.8/15.4 cm/sec. Mid ICA 62.2/14.9 cm/sec. Dist ICA 42.2/13.0 cm/sec. Dist ICA 57.8/13.8 cm/sec. Rt. ICA/CCA = 1.0. Lt. ICA/CCA = .9. Prox ECA 87.2/7.8 cm/sec. Prox ECA 73.2/13.8 cm/sec. Rt. Vert. 36.7/10.4 cm/sec. Lt. Vert. 33.6 cm/sec. Right Extracranial There is heterogeneous, irregular atherosclerotic plaque noted in the right common carotid artery. There is heterogeneous, irregular atherosclerotic plaque noted in the right internal carotid artery. There is heterogeneous, irregular atherosclerotic plaque noted in the right external carotid artery. Antegrade flow is noted in the right vertebral artery. Left Extracranial There is intimal thickening but no significant atherosclerotic plaque noted in the left common carotid artery. There is heterogeneous, irregular atherosclerotic plaque noted in the left internal carotid artery. There is heterogeneous, irregular atherosclerotic plaque noted in the left external carotid artery. Antegrade flow is noted in the left vertebral artery. Procedure Carotid Duplex 06130. This is a Carotid Duplex examination using B-mode, color flow and specral Doppler. The exam was diagnostic. Exam performed in department. VL/Carotid Duplex Ultrasound Interpretation Summary Mild (<50%) stenosis right extracranial internal carotid. Mild (<50%) stenosis left extracranial internal carotid. Flow within the vertebral arteries is antegrade bilaterally. Ordering Physician: Eric Rendon Performed By: Sharif Murry RVT and Student
--- NOTE | 2020-09-26 08:47 | ECHOD_ITS ---
Reason For Study: Transient retinal artery occlusion, left eye. Procedure This was a 2D Doppler, Color Flow transthoracic echocardiogram. Exam performed in department. Left Ventricle Normal LV size. The estimated ejection fraction is 65 %. Normal diastology for age. No regional wall motion abnormalities noted. Right Ventricle Normal RV size. Normal systolic function. Atria Normal left atrium. Normal right atrium. Bubble contrast study negative for right to left interatrial shunt. No doppler evidence for ASD. Mitral Valve There is no mitral valve stenosis. Trivial mitral valve insufficiency. Tricuspid Valve There is no tricuspid stenosis. Unable to estimate RV systolic pressure due to inadequate jet, pulmonary artery pressure probably normal. Aortic Valve Trisinus/trileaflet aortic valve. Aortic sclerosis, no stenosis. There is no aortic stenosis. Mild (1+) aortic valve insufficiency. Pulmonic Valve There is no pulmonic valvular stenosis. No pulmonic valve insufficiency. Great Vessels Normal aortic root. Pericardium/Pleural No pericardial effusion. Medication 22 gauge I.V. with prn adaptor inserted into left arm. Performed a rapid injection of agitated mix of 9 cc saline and 1cc air to assess for atrial septal defect. MMode/2D Measurements & Calculations LVIDd: 3.9 cm IVSd: 1.0 cm LVOT diam: 2.1 cm LVIDs: 2.3 cm LVPWd: 1.0 cm RVDd: 3.2 cm FS: 40.1 % LVOT area: 3.6 cm2 Ao root diam: 3.0 cm LAV(MOD-bp): 55.6 ml LA A4 area: 18.5 cm2 LAV(MOD-bp) Indexed: 31.2 ml/m2 LAV(MOD-sp2): 52.6 ml LAV(MOD-sp4): 52.0 ml LA dimension(2D): 3.9 cm RA A4 area: 11.2 cm2 Time Measurements MV dec time: 0.21 sec Doppler Measurements & Calculations MV E max romaine: 60.3 cm/sec Lat Peak E' Romaine: 5.6 cm/sec Med Peak E' Romaine: 4.8 cm/sec MV A max romaine: 72.5 cm/sec E/E' lat: 10.9 E/E' med: 12.5 MV E/A: 0.83 Ao V2 max: 148.3 cm/sec AI max romaine: 380.2 cm/sec LV V1 max: 88.5 cm/sec Ao max P.8 mmHg AI max P.9 mmHg LV V1 max P.1 mmHg Ao V2 mean: 110.3 cm/sec AI dec slope: 200.6 cm/sec2 LV V1 mean P.8 mmHg Ao mean P.3 mmHg AI P1/2t: 555.1 msec LV V1 mean: 63.6 cm/sec Ao V2 VTI: 36.1 cm LV V1 VTI: 20.6 cm BENITA(I,D): 2.0 cm2 BENITA(V,D): 2.1 cm2 SV(LVOT): 73.6 ml PA V2 max: 88.4 cm/sec ECHO/Echo Complete Interpretation Summary The estimated ejection fraction is 65 %. Normal diastology for age. Trivial mitral valve insufficiency. Mild (1+) aortic valve insufficiency. Ordering Physician: Julieta^Eric^^^ Referring Physician: Elis Cardenas Performed By: Rosanne Hays, DONNIE, RVT
== END ==
PROVIDERS: PCP Family Medicine; Referring Provider Ophthalmology; Visit Provider Ophthalmology
DX: H34.212 Partial retinal artery occlusion, left eye (principal); H34.02 Transient retinal artery occlusion, left eye
CPT/HCPCS: 93306; 93880; A4216

== ENCOUNTER → 2022-01-13 | Outpatient (CLI) | payer MEDICARE, OTHER, SELFPAY ==
--- NOTE | 2022-01-13 12:38 | BI_ITS ---
MAMMOGRAPHY - BILATERAL SCREENING 3-D TOMOSYNTHESIS REASON FOR EXAM: Female, 76 years old. screening mammogram PERTINENT HISTORY: No significant family history. TECHNIQUE: 2-D mammograms and 3-D Tomosynthesis of the breast (s) were performed. CAD was performed. COMPARISON: None. FINDINGS: The breast composition is composed of scattered fibroglandular density. Scattered benign calcifications are seen. No dense spiculated masses or suspicious microcalcifications are identified. No architectural distortion is identified. There is no skin thickening or retraction. There has been no significant change since the prior study. BI/SCRN MAMM (CAD)W/NICA BILAT IMPRESSION: No mammographic signs of malignancy. Routine yearly mammograms recommended. ASSESSMENT CATEGORY: BIRADS Category 1: Negative. A letter regarding these results will be sent to the patient by the facility within 30 days. FOLLOW UP RECOMMENDATION: Yearly follow up mammogram recommended. (A) Approximately 10% of breast cancers are not detected by mammography. A normal mammogram should not delay biopsy of a clinically suspicious abnormality. Electronically Signed: Dusty Lorenzana MD at 14:11 EDT ,
--- NOTE | 2022-01-13 12:50 | BD_ITS ---
STUDY: DUAL ENERGY X-RAY ABSORPTIOMETRY / DXA REASON FOR EXAM: Female, 76 years old. Postmenopausal TECHNIQUE: Bone Mineral Density (BMD) measurements of lumbar spine and bilateral hips were obtained. COMPARISON: Comparison is made with prior study dated 01/04/2014. FINDINGS: Lumbar Spine (L1-L4): g/cm2 (1.094) / T-score (0.4) / Z-score (3.0) Findings are suggestive of normal bone density with a low fracture risk. Left Femur Total: g/cm2 (0.863) / T-score (-0.6) / Z-score (1.3) Left Femoral Neck: g/cm2 (0.736) / T-score (-1.0) / Z-score (1.2) Right Femur Total: g/cm2 (0.916) / T-score (-0.2) / Z-score (1.7) Right Femoral Neck: g/cm2 (0.797) / T-score (-0.5) / Z-score (1.8) The T-Scores on the most recent prior examination were: Lumbar Spine (L1-L4): There has been improvement of bone density since the previous examination. Left Femur Total: which represents a worsening of 12.5%. Right Femur Total: which represents a worsening of 8.9%. BD/Dexa Bone Density Study IMPRESSION: The patient is considered normal as outlined below according to World Shiv Organization (WHO) criteria with a low fracture risk. There has been worsening of bone density since the previous examination. Reference Information: The T-score is the number of standard deviations above or below the standard which is normal for young adults at their peak bone mineral density. The World Health Organization (WHO) interprets the T-scores as follows: Above -1 Normal bone density Between -1 and -2.5 Osteopenia Equal to / or below -2.5 Osteoporosis As a practical clinical guideline, osteopenia may be graded as follows: Mild -1 through -1.5 Moderate -1.6 through -2.0 Severe -2.1 through -2.4 The Z-score is the number of standard deviations above or below age-matched controls. A Z-score of less than -1.5 would be considered abnormal. References: 1. NIH Osteoporosis and Related Bone Diseases www osteo.org 2. International Society for Clinical Densitometry www iscd.org 3. National Osteoporosis Foundation www nof.org Electronically Signed: Matthias Holland MD at 13:20 EDT ,
== END | disposition home or self-care (01) ==
LOC: OPBD 12:37
PROVIDERS: PCP Family Medicine; Visit Provider Obstetrics & Gynecology
DX: Z78.0 Asymptomatic menopausal state (principal); Z12.31 Encounter for screening mammogram for malignant neoplasm of breast
CPT/HCPCS: 77063; 77067; 77080

== ENCOUNTER → 2022-03-11 | Outpatient (CLI) | payer MEDICARE, OTHER, SELFPAY ==
--- NOTE | 2022-03-11 12:33 | US_ITS ---
STUDY: ULTRASOUND OF THE FEMALE PELVIS - COMPLETE REASON FOR EXAM: Female, 76 years old. Incomplete uterovaginal prolapse. Spotting. Postmenopausal. TECHNIQUE: Transabdominal and Transvaginal TECHNICAL QUALITY: Adequate. COMPARISON: None. FINDINGS: The uterus is anteverted and is in a midline position. The uterus measures 8.4 x 3.5 x 2.8 cm. Normal uterine cervix. The endometrium measures 5 mm in thickness, and is hyperechoic. There is no demonstrated endometrial mass. There are multiple uterine fibroids. There is a 0.6 x 0.6 x 0.3 cm calcification within the mid fundus. There is a 1.1 x 1.1 x 0.7 cm hypoechoic subserosal fibroid in the posterior fundus. There is a 1.9 x 1.7 x 1.6 cm partially calcified fibroid in the posterior lower uterine segment. I.U.D. - The patient does not have an I.U.D. The right ovary is visualized. The right ovary measures 3.0 x 1.9 x 1.5 cm. There is no right ovarian cyst or ovarian mass. There is no visualized right adnexal mass or complex lesion. There is normal arterial and normal venous vascularity. The left ovary is visualized. The left ovary measures 2.6 x 2.0 x 1.2 cm. There is no left ovarian cyst or ovarian mass. There is no visualized left adnexal mass or complex lesion. There is normal arterial and normal venous vascularity. There is no fluid in the cul-de-sac. The pre void volume of the bladder was 160 ml. The urinary bladder appears grossly normal. Polycystic ovary disease: No. US/Pelvic (Non ) IMPRESSION: 1. Multiple uterine fibroids. There is no evidence of endometrial abnormality. 2. Normal ovaries. Electronically Signed: Fernando Gomez DO at 17:39 EST Reading Location ID and State: [id number] Tel [phone], Service support ,
== END | disposition home or self-care (01) ==
LOC: US 12:32
PROVIDERS: PCP Family Medicine; Referring Provider Obstetrics & Gynecology; Visit Provider Obstetrics & Gynecology
DX: N81.2 Incomplete uterovaginal prolapse (principal)
CPT/HCPCS: 76830; 76856

== ENCOUNTER → 2022-05-13 | Outpatient (CLI) | payer MEDICARE, OTHER, SELFPAY ==
[2022-05-13 13:24] LABS: Vitamin B12 558 pg/mL (211-911); Vitamin D,25 Hydroxy 36.1 ng/mL
[2022-05-13 13:43] LABS: ALB/GLOB Ratio 1.1 RATIO (0.9-2.4); AST(SGOT) 13 U/L (15-37); Alanine Aminotransfer ALT/SGPT 24 U/L (13-56); Albumin, Serum 3.8 g/dL (3.2-5.0); Alkaline Phosphatase 75 U/L (45-117); Anion Gap 6 (5-15); BUN 20 mg/dL (7-18); BUN/Creat Ratio 24.3 RATIO (10-20); Calcium,Total 9.6 mg/dL (8.5-10.1); Chloride 106 mmol/L (98-107); Cholesterol 300 mg/dL (200); Creatinine, Serum 0.82 mg/dL (0.55-1.02); EST Glomerular Filtration Rate 71 mL/min (>60); Est Glom Filt Rate - Afr Amer 86 mL/min (>60); Free T3 2.2 pg/mL (2.18-3.98); Globulin 3.5 g/dL (2.2-4.2); Glucose 96 mg/dL (74-106); High Density Lipoprotein 53 mg/dL; Iron 104 ug/dL (50-170); Potassium 4.3 mmol/L (3.5-5.1); Protein, Total 7.3 g/dL (6.4-8.2); Sodium Level 139 mmol/L (136-145); T4 Free Direct 1.46 ng/dL (0.76-1.46); Thyroid Stim Hormone (TSH) 4.05 uIU/mL (0.358-3.74); Triglycerides 367 mg/dL; Very Low Density Lipoprotein 73 mg/dL (5-40)
== END | disposition home or self-care (01) ==
LOC: BFHLAB 10:46
PROVIDERS: PCP Family Medicine; Visit Provider Family Medicine
DX: E03.9 Hypothyroidism, unspecified (principal); I10 Essential (primary) hypertension; E78.5 Hyperlipidemia, unspecified; E61.1 Iron deficiency; E53.8 Deficiency of other specified B group vitamins
CPT/HCPCS: 36415; 80053; 80061; 82306; 82607; 83540; 84439; 84443; 84481

== ENCOUNTER 2022-05-28 05:18 | Day surgery (SDC) | payer MEDICARE, OTHER, SELFPAY ==
--- NOTE | 2022-05-22 09:21 | EKG12_ITS ---
Test Reason : PRE-OP Blood Pressure : / mmHG Vent. Rate : 056 BPM Atrial Rate : 056 BPM P-R Int : 200 ms QRS Dur : 086 ms QT Int : 452 ms P-R-T Axes : 072 011 073 degrees QTc Int : 436 ms Sinus bradycardia Inferior infarct , age undetermined Abnormal ECG Confirmed by JHOAN GOULD, AROLDO ([id number]), graphics editor ABHILASH PERALTA ([id number]) on 05/25/2022 9:09:27 AM Referred By: AMANDA NELSON Confirmed By:AROLDO STAPLES MD
[2022-05-22 10:27] LABS: Magnesium 2.3 mg/dL (1.6-2.6)
[2022-05-22 10:28] LABS: Hematocrit 40.4 % (37-47); Hemoglobin 13.8 g/dL (12.0-15.0); Mean Corp Hgb Conc 34.2 g/dL (32-36); Mean Corpuscular Hgb 30.7 pg (27.0-32.0); Mean Corpuscular Volume 89.8 fL (81-99); Mean Platelet Vol. 9.8 fl (6.2-12.0); Platelet Count 232 K/mm3 (150-450); RBC Distribution Width CV 13.2 % (11.6-14.6); RBC Distribution Width SD 43.2 fl (35.1-43.9); White Blood Count 6.6 K/mm3 (4.4-11.0)
[2022-05-28] VITALS (15 sets, daily range): BP systolic 117–143; BP diastolic 52–61; PULSE 59–76; RESP 16–18; TEMP 36.1–37.2; O2SAT 93–100; BMI 32.6
--- NOTE | 2022-05-28 | HYST_PTH ---
PATIENT: ROBSON BROWNING LOC: [facility] [place] U#:[id number] AGE/SX: 76/F ROOM: RE05/28/[address]: Dr. Afua Barry DO : 1945 BED: DIS: 05/29/2022 SPEC #: [id number] RECD: 05/28/22 13:18 STATUS: SHILPA BLANDON #: [id number] MARIALUISA: 05/28/22 00:[address]: Afua Barry DEPT: SURGICAL PATHOLOGY RECD BY: Cabrera Middleton ENTERED: 05/28/22 13:19 SP TYPE: HYSTERECT OTHR DR: MD Dr. Elis Johnson DO Tissues: Uterus, NOS Procedures: Surgery Specimen Level V HEADER OPERATION: Total vaginal hysterectomy PRE-OP DIAGNOSIS: Uterovaginal prolapse, stress urinary incontinence TISSUE SUBMITTED: Uterus, cervix, right fallopian tube and ovary MICROSCOPIC DIAGNOSIS Uterus, hysterectomy: Cervix ? hyperkeratosis and nabothian cysts. Endometrium ? inactive endometrium with cystic change. Endometrial polyp ? benign simple cystic hyperplasia without atypia. Myometrium ? leiomyomas with hyalinization and calcific change. Right ovary ? corpora albicantia and benign epithelial inclusion cyst Fallopian tube - No pathologic change. AM:rudolph 05/29/2022 MICROSCOPIC DESCRIPTION Slides are reviewed. GROSS DESCRIPTION Received in fixative is one container labeled with the patient's name and designated uterus. The specimen consists of a uterus with attached cervix measuring 9.5 x 4.6 x 3.2 cm and weighing 156 gm. The ectocervix is grossly unremarkable. The endocervical canal measures 3.6 cm in length and is grossly unremarkable. The triangular endometrial cavity measures 3.6 x 2.5 cm. The endometrium is light rodríguez, velvety and glistening and measures up to 0.2 cm in thickness. The posterior endometrial surface contains a light rodríguez polyp measuring 1 x 0.6 x 0.2 cm. The myometrium measures 2 cm in average thickness and contains multiple spherical, rubbery nodules ranging in size from 0.6 to 2 cm. The larger nodules display calcific change. Present free in the container is a rodríguez, crinkled ovary measuring 2.2 x 1.6 x 0.7 cm. Serial sections of the ovary do not reveal mass lesions. Adjacent to the ovary is what appears to be portions of fallopian tube measuring 5 cm in length and 0.4 cm in average diameter. Accounting Reconciliation Clerk sections are submitted in ten cassettes as follows: 1 - anterior cervix, 2 - posterior cervix,?3 & 4 - anterior uterine wall, 5 - posterior endometrial polyp, 6 & 7 - posterior myometrial wall, 8??myometrial masses, 9??ovary, 10 - presumed fallopian tube, totally submitted. / AM:rudolph 05/28/2022 TC:1 CPT: 61827
[2022-05-28] MEDS: Lactated Ringers 1,000 ML 40 ML IV ×2 (06:24→09:15)
[2022-05-28] MEDS: dexAMETHasone 10 MG/ML Vial 8 MG IV (06:24)
[2022-05-28] MEDS: Gabapentin 600 MG Tablet PO ×2 (06:25)
[2022-05-28] MEDS: Acetaminophen 500 MG Tablet 1000 MG PO ×4 (06:25→22:59)
[2022-05-28] MEDS: Celecoxib 200 MG Capsule 400 MG PO (06:25)
[2022-05-28 06:30] LABS: Bedside Glucose 88 mg/dL (74-106)
--- NOTE | 2022-05-28 07:25 | HP.PCM_ITS ---
History and Physical Date of Admission: 05/28/22 Intake Vital Signs ? 05/14/2313:37 05/14/2313:37 Height 5 ft 2 in 5 ft 2 in BP 141/67 H ? 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 Is patient in pain?: No Allergies adhesive tape Allergy (Verified 05/14/22 14:37) RashPenicillins Allergy (Verified 05/14/22 14:37) Rashpepper (genus Capsicum) Allergy (Verified 05/14/22 14:37) SwellingSulfa (Sulfonamide Antibiotics) Allergy (Verified 05/14/22 14:37) Rash Medications amlodipine 5 mg tablet 5 mg PO DAILY 09/22/15 [History Confirmed 05/14/22] lisinopril 20 mg tablet 20 mg PO DAILY #30 tabs 10/11/15 [Rx Confirmed 05/14/22] atenolol 25 mg tablet 25 mg PO ONCE 12/25/21 [History Confirmed 05/14/22] levothyroxine 175 mcg tablet 137 mcg PO DAILY 12/25/21 [History Confirmed 05/14/22] estradiol 0.01% (0.1 mg/gram) vaginal cream See Rx Instructions vaginal .COMPLEX #42.5 grams 02/24/22 [Rx Confirmed 05/14/22] Post menopausal: No Patient : No : No [facility] Medical History? Aphthous ulcer of mouth Corrales's palsy Benign essential hypertension Cancer GERD (gastroesophageal reflux disease) History of stroke Hyperlipidemia Hypertension Hypothyroidism Menieres disease TIA (transient ischemic attack) Surgical History? H/O breast biopsy H/O dilation and curettage H/O hernia repair H/O tubal ligation History of thyroidectomy Hx of colonoscopy Family History? Mother Heart disease Social History? Smoking Status:? Never smoker alcohol intake:? never substance use type:? does not use caffeine:? Yes seatbelt use:? always do you feel safe at home:? Yes additional social history:? - [place] HPI [facility] Details: ?ROBSON BROWNING is a 76 year old who presents for discussion about surgery.? Juliette Gayle and I examined her together and she was found to have a grade 3 uterine prolapse with cracking and excoriations of the cervix. This was a big change from her exam in December when she came in for her annual check up. Pt also complains of night time bladder leakage and also leaking urine when she laughs, coughs, or sneezes.? The plan is for a vaginal hysterectomy. She saw? Dr. Virk and has an a&p repair with sling also scheduled. History ? ? ? 2 ? Elective abortions ? Hx Para ? ? ? 2 ? Spontaneous abortions ? Hx # Term Pregnancies ? Ectopic pregnancies ? Hx # Pregnancies ? Multiple births ? # of living children ? Past Pregnancies Del. Date Name GA/Weeks Outcome Route Bth Weight Gen Labor Lgth Anesthesia Del Locatn Provider FOB Unknown Josh ? Unknown Kim (dec at 17) ? ROS Const ROS Unobtainable: All systems reviewed & are unremarkable except as noted in H Resp Resp: Reports system reviewed and no additional complaints, except as documented; Denies cough GI GI: Reports as per HPI Psych Psych: Reports system reviewed and no additional complaints, except as documented Exam Const General: cooperative, healthy appearing, comfortable and no acute distress Resp Effort & Inspection: normal respiratory effort Skin General: no rashes or lesions noted Psych Appearance: grossly normal Speech and Movement: speech and movement normal Coding Level of Care Code Off vis,est,level 4 Diagnoses Uterovaginal prolapse, incomplete? N81.2 Overflow stress urinary incontinence in female? N39.3; N39.490 Assessment and Plan Assessment and Plan (1) Uterovaginal prolapse, incomplete: ?Status:?Acute ?Plan: After discussing the patient's diagnosis and treatment plan options, patient wishes to proceed with surgical management.? I have discussed with the patient the risks, benefits, and alternatives of the procedure which include but are not limited to risks of anesthesia, bleeding, infection, possible damage to bowel, bladder, or surrounding vasculature which could lead to additional surgery to evaluate any complications.? Patient agrees to procedure and wishes to proceed.? ACOG/uptodate references given for additional information regarding procedure.? plan is to proceed with a total vaginal hysterectomy, possible bso, and Dr. virk portion of the surgery to includ A&P repair, sling, and cysto. (2) Overflow stress urinary incontinence in female: ?Status:?Acute Plan After discussing the patient's diagnosis and treatment plan options, patient wishes to proceed with surgical management.? I have discussed with the patient the risks, benefits, and alternatives of the procedure which include but are not limited to risks of anesthesia, bleeding, infection, possible damage to bowel, bladder, or surrounding vasculature which could lead to additional surgery to evaluate any complications.? Patient agrees to procedure and wishes to proceed.? ACOG/uptodate references given for additional information regarding procedure.? UPDATE- I have seen the patient and performed any clinically relevant updates to the history and physical exam. Afua Barry, DO
[2022-05-28] MEDS: Cefazolin 2 GM in 0.9% Normal Saline 100 ML IV (07:45)
--- NOTE | 2022-05-28 08:39 | PCM.OPRPT ---
Problems Associated Problem List Diagnoses (1) Uterovaginal prolapse, incomplete: Report of Operation Date of Procedure: 05/28/22 Pre-Operative Diagnosis: complete uterovaginal prolapse Post-Operative Diagnosis: complete uterovaginal prolapse Surgery/Procedure Performed:: vaginal hysterectomy, right salpingo-oophorectomy Description of Surgical Findings:: complete prolpase of uterus and cervix. Normal right ovary and fallopian tube. Non-visualization of the left ovary and fallopian tube Surgeon: Afua Barry harvesting supervisor: Oumou Crawley Type of Anesthesia: General Specimen's removed: uterus, cervix, right ovary and fallopian tube Drains: rose catheter Estimated Blood Loss (mL): 50cc Description of Procedure: Patient was taken to the operating room and was placed under general anesthesia was prepped and draped in normal sterile fashion in the dorsal lithotomy position. Preoperative antibiotics and SCDs and Rose catheter was placed inside the bladder. Weighted speculum was placed in the vagina and the anterior and posterior lip of the cervix was grasped with 2 Taylor clamps and circumferentially injected with 0.25% marcaine. A circumferential incision was made with a scalpel and the posterior cul-de-sac was entered into sharply and a longneck speculum was placed. The anterior cul-de-sac was also dissected down and entered into sharply and the uterosacral ligaments were clamped cut and suture ligated bilaterally followed by the cardinal ligaments which were Clamped cut and suture ligated bilaterally with 0 Monocryl. The uterus serially descended and progressive bites were taken bilaterally up to the level of the utero-ovarian ligament bilaterally which was clamped transected and double ligated with 0 Vicryl suture and free tie. The right fallopian tubes and ovary were well visualized and noted be within normal limits and the fallopian tube and ovary were transected across the base of the IP ligament and removed and sutured with 0 Vicryl suture. Excellent hemostasis was noted. Posterior peritoneum was reapproximated with 2-0 Vicryl into the posterior vaginal cuff. The vagina was closed with [id number] 0 Vicryl pop offs including the posterior and anterior peritoneum in the reapproximation. Excellent hemostasis was noted. All instruments removed from the vagina clear urine was noted at the end of the procedure. Dr. Virk Next, will be performing her part of the surgery which is dictated separately Grafts/Implants Used: none Complications none Admit VTE Documentation VTE Present on Admission: Yes VTE Mechan Device Prophylaxis: SCD's VTE Pharm Prophylaxis ordered?: Yes Multi Select Codes Urinary/Genital Urinary/Genital CPT Codes: 35074 TVH+BS/O <250gr uterus
[2022-05-28] MEDS: Estrogens,Conj. 1 Tube 1 DOSE (09:59)
--- NOTE | 2022-05-28 10:28 | OP.PCM_ITS ---
Report of Operation Date of Procedure: 05/28/22 Pre-Operative Diagnosis: Incomplete uterovaginal prolapse, stress urinary incon tinence Post-Operative Diagnosis: Same Surgery/Procedure Performed:: Anterior and posterior repair, right sacrospinous ligament fixation, mid urethral sling, cystoscopy with bilateral ureteral catheterization Surgeon: Kourtney Virk Type of Anesthesia: General Estimated Blood Loss (mL): 25 cc Description of Procedure: The patient is a 76-year-old female with pelvic organ prolapse who underwent testing in the office and now presents for definitive surgical intervention. Informed consent has been obtained. The patient was taken to the operating room and placed on the operating room table. She was appropriately padded and secured to the table. Anesthesia monitored the head, neck, airway, IV access and vital signs throughout the case. Once anesthesia was appropriately administered, the patient was placed into exaggerated dorsolithotomy in Trendelenburg position. A Mohan catheter was inserted to straight drain. At this time the hysterectomy and oophorectomy and apical closure were performed by Dr. Bran. The case was then turned over to me. I performed a cystourethroscopy through the urethra under direct visualization confirming no bladder injury. Bilateral ureteral catheterization was performed with easy advancement to 20 cm bilaterally. At this time the cystoscope was removed and the Mohan catheter was reinserted to straight drain. The anterior vaginal wall was short in length and wide. The anterior vaginal wall was injected submucosally with vasopressin for hydrostatic dissection and hemostatic control. A vertical midline incision approximately 3 cm in length was then made. Sharp and blunt dissection was performed on both sides. On the left side secondary to the width of the apex and the configuration, I was unable to safely gain access to the sacrospinous ligament around the cuff closure. On the right side I was able to gain access. The ureter was palpable near the ischial spine. The sacrospinous ligament was freed from the surrounding tissues and the Richie device was used to pass an Ethibond suture through the ligament. This suture was then brought out at the apex in full-thickness fashion of the vaginal wall. Using 3-0 PDS, a 2 layer interrupted anterior repair was performed bringing the pubocervical fascia together in the midline. The vaginal mucosa was then closed using running interlocking 2-0 Vicryl. The Ethibond apical sacrospinous ligament suture was then tied into position and the prolapse was reduced. The Mohan catheter was removed and a cystourethroscopy was then performed through the urethra. Once again bilateral ureteral orifices were identified and intub ated easily revealing no evidence of obstruction or injury. At this time the cystoscope was removed and the Mohan catheter was replaced. Attention was turned towards the rectocele defect. At this time the submucosa was injected with vasopressin and a midline incision was made sharply and blunt dissection was performed specifically around the area of the defect at the introitus and perineal body extending all the way cephalad beyond the other midline defect. Once the defect was completely dissected, the rectovaginal fascia was brought together in interrupted fashion using 3-0 PDS. The perineal body was reconstructed as well using interrupted sutures. At the conclusion of the repair, the vaginal mucosa was closed using running interlocking 2-0 Vicryl. The mid urethra was then isolated. The urethra was short in length and the incision was made slightly closer to the bladder neck secondary to her intrinsic sphincter deficiency. At this time sharp dissection was performed on either side of the urethra with care being taken to avoid entry into the urethra or the vaginal mucosa. The sling was placed using its trocars into the transobturator fascia bilaterally. The sling was tightened using the tensioning suture until it lay flat against the urethra. The tensioning suture was then cut. The vaginal mucosa was closed using running interlocking 2-0 Vicryl. The Mohan catheter was then removed and a cystoscope was inserted through the urethra for the third time. There were no injuries identified. The cystoscope was removed and the Mohan catheter was replaced. The vagina was packed with vaginal packing and estrogen cream. The patient was awakened and taken to the recovery room in good condition. There were no complications during this procedure. Grafts/Implants Used: Altis mid urethral sling Complications None Admit VTE Documentation VTE Present on Admission: Yes VTE Mechan Device Prophylaxis: SCD's VTE Pharm Prophylaxis ordered?: Yes
[2022-05-28] MEDS: Ketorolac 15 MG/ML Vial IV ×3 (12:18→22:58)
[2022-05-28] MEDS: Cephalexin 500 MG Capsule PO (22:57)
[2022-05-28] MEDS: Docusate Sodium 100 MG Capsule PO (22:57)
[2022-05-29 04:00] VITALS: BP 136/62; PULSE 80; RESP 16; TEMP 37; O2SAT 95
[2022-05-29] MEDS: Levothyroxine 150 MCG Tablet PO (06:07)
[2022-05-29] MEDS: Acetaminophen 500 MG Tablet 1000 MG PO ×2 (06:07→14:33)
[2022-05-29] MEDS: Ketorolac 15 MG/ML Vial IV (06:08)
--- NOTE | 2022-05-29 06:41 | CT_ITS ---
EXAM: CT brain without contrast HISTORY: concern stroke TECHNIQUE: CT Head or Brain W/O Contrast Injection A radiation dose optimization technique was used for this scan. COMPARISON: MRI brain 02/20/[address] brain 11/11/2018 LIMITATIONS: None. BRAIN: Chronic lacunar infarct in left thalamus and left basal ganglia, similar compared to the prior.. VENTRICLES: No hydrocephalus. Parasellar white matter EXTRA-AXIAL SPACES: No hemorrhages, fluid collections, or masses. CALVARIUM/SKULL BASE: Normal. FACE/SINUSES: Visualized portions normal. SOFT TISSUES: Normal. OTHER: [place] calcifications. CT/Brain/Head without Contrast IMPRESSION: 1. No intracranial hemorrhage or acute territorial infarction. 2. Chronic lacunar infarcts in the left thalamus and basal ganglia, similar compared to the prior. 3. Senescent changes. Electronically Signed: El Aguilera MD at 7:16 EST ,
[2022-05-29 06:46] LABS: Hemoglobin 11.8 g/dL (12.0-15.0); Mean Corp Hgb Conc 32.8 g/dL (32-36); Mean Corpuscular Hgb 30.1 pg (27.0-32.0); Mean Corpuscular Volume 91.8 fL (81-99); Mean Platelet Vol. 9.6 fl (6.2-12.0); Platelet Count 222 K/mm3 (150-450); RBC Distribution Width CV 13.3 % (11.6-14.6); RBC Distribution Width SD 44.8 fl (35.1-43.9); Red Blood Count 3.92 M/mm3 (4.2-5.4); White Blood Count 12.2 K/mm3 (4.4-11.0)
--- NOTE | 2022-05-29 07:10 | NURSING ---
at 0620 this pt was stood in room and reported left-sided facial numbness. pt has hx of left sided-facial paralysis s/p multiple tias. sensation of facial areas was intact. pt was returned to bed, NIH was completed and pt scored 3 based on chronic facial paralysis. no acute findings. this rn called dr krishnamurthy and made her aware of pt's concerns. she requested that i notify dr squires. dr squires requested a hospitalist consult. this rn provided a brief report to dr espinal. dr espinal ordered a brain CT. when this rn returned to the pt's room, she stated the numbness had improved. pt was taken to ct and returned to room. NIH was performed and pt's score remained at 3. at this time pt stated the numbness had resolved.
[2022-05-29 08:00] VITALS: BP 131/59; PULSE 58; RESP 18; TEMP 36.6; O2SAT 96
--- NOTE | 2022-05-29 08:13 | PCM.PN.OB ---
Subjective Subjective Patient is laying in bed comfortably without complaints. She states that she slept on an off during the night. This am when she woke up and stood up she felt woozy Nursing called the building construction teacher BUS SYSTEM OPERATOR and reported facial droop. pt states that she has had multiple TIA's, has short term memory loss but has had a chronic facial droop. She is asking for something for depression and is tearful stating that her daughter committed suicide back in 1988 and she never got over this. She denies current suicidal ideations. She tells me that in the past after her suicide, she thought about taking her own life but she could not do it and would not do it. Objective Data Objective Data Vital Signs: Vital Signs Temp Pulse Resp BP Pulse Ox O2 Del Method O2 Flow Rate 98.6 F 80 16 136/62 H 95 Room Air 2 05/29/22 04:00 05/29/22 04:00 05/29/22 04:00 05/29/22 04:00 05/29/22 04:00 05/29/22 04:00 05/28/22 11:54 Oxygen Flow Rate (L/min) 2 Oxygen Delivery Method Room Air Weight: 178 lb 9.191 oz Body Mass Index (BMI) 32.6 Intake & Output: Intake and Output for Last 24 Hours 05/27/22 05/28/22 05/29/22 23:59 23:59 23:59 Intake Total 2500 / 3300 1300 / 1300 Output Total 2180 / 3180 2400 / 2400 Balance 320 / 120 -1100 / -1100 Lab / Micro Data Result Diagrams: 05/29/22 05:34 Labs: Laboratory Results - last 24 hr 05/29/22 05:34: WBC 12.2 H, RBC 3.92 L, Hgb 11.8 L, Hct 36.0 L, MCV 91.8, MCH 30.1, MCHC 32.8, RDW Std Deviation 44.8 H, RDW Coeff of Jennifer 13.3, Plt Count 222, MPV 9.6 Radiography Diagnostic Testing: Radiology Impression Brain CT 05/29/22 06:41 IMPRESSION: 1. No intracranial hemorrhage or acute territorial infarction. 2. Chronic lacunar infarcts in the left thalamus and basal ganglia, similar compared to the prior. 3. Senescent changes. Electronically Signed: El Aguilera MD at 7:16 EST , ROS Constitutional Constitutional: Reports systems reviewed and no addt'l complaints, except as documented Cardiovascular Cardiovascular: Denies chest pain, dizziness, dyspnea or irregular heart rhythm Respiratory/Chest Respiratory/Chest: Denies cough, pain on inspiration or shortness of breath at rest Gastrointestinal Gastrointestinal: Denies abdominal pain, nausea or vomiting Genitourinary Genitourinary: Denies burning urination Musculoskeletal Musculoskeletal: Denies muscle cramps, muscle spasms or muscle weakness Neurologic Neurologic: Denies confusion, headache(s) or lack of coordination Psychiatric Psychiatric: Denies anxiety, behavioral changes or depression Physical Exam HEENT normocephalic Resp normal respiratory effort and normal air movement GI soft to palpation, non-tender and non-distended no CVA tenderness Extremity normal to inspection General Extremity: edema bilateral (trace ) Assessment & Plan (1) Status post hysterectomy with oophorectomy: (2) Uterovaginal prolapse, incomplete: (3) Overflow stress urinary incontinence in female: PLAN: Plan patient is s/p total vag hyst rso and vault repair POD 1 1. routine ERAS protocol postop care- increase ambulation, encourage oral intake and oral control of pain. lovenox and scds for dvt prophylaxis, patient stable for discharge to home later today pending medicine consult. 2. CT brain is stable without acute changes.
--- NOTE | 2022-05-29 08:26 | PN.URO_ITS ---
Subjective Subjective She is awake, comfortable in bed. No issues overnight. This morning when she got out of bed she reports that her left face felt transient. By the time that she got back into bed this had resolved. She does have a significant stroke history with changes on her left side already. She is not passing gas, but is t olerating p.o. intake just fine. There is no nausea or vomiting. Objective Data Objective Data Vital Signs: Vital Signs Temp Pulse Resp BP Pulse Ox O2 Del Method O2 Flow Rate 98.6 F 80 16 136/62 H 95 Room Air 2 05/29/22 04:00 05/29/22 04:00 05/29/22 04:00 05/29/22 04:00 05/29/22 04:00 05/29/22 04:00 05/28/22 11:54 Oxygen Flow Rate (L/min) 2 Oxygen Delivery Method Room Air Weight: 81 kg Body Mass Index (BMI) 32.6 Intake & Output: Intake and Output for Last 24 Hours 05/27/22 05/28/22 05/29/22 23:59 23:59 23:59 Intake Total 2500 / 3300 1300 / 1300 Output Total 2180 / 3180 2400 / 2400 Balance 320 / 120 -1100 / -1100 Lab / Micro Data Result Diagrams: 05/29/22 05:34 Labs: Laboratory Results - last 24 hr 05/29/22 05:34: WBC 12.2 H, RBC 3.92 L, Hgb 11.8 L, Hct 36.0 L, MCV 91.8, MCH 3 0.1, MCHC 32.8, RDW Std Deviation 44.8 H, RDW Coeff of Jennifer 13.3, Plt Count 222, MPV 9.6 Radiography Diagnostic Testing: Radiology Impression Brain CT 05/29/22 06:41 IMPRESSION: 1. No intracranial hemorrhage or acute territorial infarction. 2. Chronic lacunar infarcts in the left thalamus and basal ganglia, similar compared to the prior. 3. Senescent changes. Electronically Signed: El Aguilera MD at 7:16 EST , Physical Exam Const alert, oriented x3 and no apparent distress HEENT normocephalic and head/scalp atraumatic Neck supple General: trachea midline Chest inspection of chest normal Resp normal respiratory effort, normal air movement and no retractions Cardio regular rate GI soft to palpation, non-tender and non-distended Narrative: Mohan catheter clear. The Mohan catheter and vaginal packing were removed without incident. Skin no rashes or lesions noted Neuro oriented x3 and CN's II-XII intact bilaterally Psych mental status grossly normal and thought process normal Assessment & Plan Assessment/Plan (1) Status post hysterectomy with oophorectomy: (2) Uterovaginal prolapse, incomplete: (3) Stress incontinence: PLAN: Plan Medicine evaluation for transient left facial numbness. Trial of void in home later today if okay with medicine.
[2022-05-29 08:30] VITALS: O2SAT 95
[2022-05-29] MEDS: Docusate Sodium 100 MG Capsule PO (08:33)
[2022-05-29] MEDS: Lisinopril 20 MG Tablet PO (08:33)
[2022-05-29] MEDS: Cephalexin 500 MG Capsule PO (08:33)
[2022-05-29] MEDS: Ensure Plus High Protein 120 ML LIQUID PO (08:33)
[2022-05-29] MEDS: Enoxaparin 40 MG/0.4 ML Syringe SC (08:33)
[2022-05-29] MEDS: amLODIPine 5 MG Tablet PO (08:33)
[2022-05-29] MEDS: Atenolol 25 MG Tablet PO (08:34)
--- NOTE | 2022-05-29 11:11 | DCINST_ITS ---
Discharge Instructions Diet Discharge Diet: No restrictions Activity Discharge Activity: May Not Drive (For 2 weeks) and May Shower May resume sexual activity in: 8 weeks Additional Activity Instructions:: No lifting over 5 pounds, no strenuous activity or exercise, stairs are okay, no vacuuming, no sexual activity, no swimming or hot tubs Dressing / Incision Call your doctor if your incision/area has: Continuous Slow Oozing, Sudden Increased Bleeding, Increased Pain/ Swelling and Foul Smelling Discharge Call your doctor if you observe: Fever of 101 or Higher, Inability to urinate and Inability to have a bowel movement Follow Up Care Please Follow Up With: Kourtney Virk MD When: Call office for appointment Test Results: Test results from this visit will be discussed in further detail at your follow- up appointment, if applicable. Discharge Plan Admission Attending Provider: Afua Barry Primary Care Provider: Elis Cardenas Consulting Providers: Kourtney Virk ; Jony Pratt Discharge Orders/Prescriptions Prescriptions: New oxycodone-acetaminophen [Percocet] 5-325 mg tablet 1 tab PO Q8H PRN (Reason: pain) 5 Days Qty: 14 0RF cephalexin [cephalexin] 500 mg capsule 500 mg PO Q12 3 Days Qty: 6 0RF Continued estradiol 0.01 % (0.1 mg/gram) cream See Rx Instructions vaginal .COMPLEX Qty: 42.5 2RF Rx Instructions: small amount as directed vaginal every day X 4 weeks then twice a week; levothyroxine 175 mcg tablet 150 mcg PO DAILY atenolol 25 mg tablet 25 mg PO DAILY Label Comments: heart/blood pressure amlodipine 5 MG tablet 5 mg PO DAILY Label Comments: blood pressure lisinopril 20 MG tablet 20 mg PO DAILY Qty: 30 0RF Label Comments: BLOOD PRESSURE lysine 1,000 mg Tablet 1,000 mg PO DAILY garlic 1,000 mg Capsule 1,000 mg PO DAILY ascorbic acid (vitamin C) [Vitamin C] 500 mg Tablet 500 mg PO DAILY magnesium 250 mg Tablet 250 mg PO DAILY zinc lozenges 15 mg Lozenge 15 mg PO DAILY B-complex with vitamin C Tablet 1 tab PO DAILY omega-3 fatty acids Capsule 1,000 mg PO DAILY cholecalciferol (vitamin D3) [Vitamin D3] 125 mcg (5,000 unit) Tablet 125 mcg PO DAILY turmeric root extract 500 mg Capsule 500 mg PO DAILY calcium carb and citrate-vitD3 [Citracal-D3 Slow Release] 600 mg-12.5 mcg (500 unit) Tablet Extended Release 2 tab PO DAILY aspirin 81 mg Capsule 81 mg PO DAILY Referrals / Follow Up: Elis Cardenas DO [Primary Care Provider] - Disposition Disposition (needs filled in before D/C Order can be placed): Home, Self Care
--- NOTE | 2022-05-29 13:26 | CASEMGMT ---
CASSY MOORE in to discuss [employer] form with patient. CASSY MOORE explained [employer] form, patient voiced understanding. Pt signed form and filed in chart. Pt provided with a copy of signed [employer] form. Pt states she has a walker at home and canes to use. She states she will use the walker for a short time. She denies any homegoing needs. Patient had no further questions or concerns at this time.
[2022-05-29 13:38] VITALS: BP 132/59; PULSE 65; RESP 18; TEMP 36.5; O2SAT 96
--- NOTE | 2022-05-29 14:44 | PCM.PN.HOSP ---
Subjective Subjective Patient was seen and examined today, I was asked to see her by her attending physician due to an episode of left facial numbness that she had when she got up this morning and walked to the door of her room and back. This only lasted for less than 1 to 2 minutes, patient states she has a past history of a stroke. Patient does take aspirin for stroke prevention. Patient states that she has no symptoms of any facial numbness now and she never had any symptoms of focal weakness or speech difficulty. 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 Objective Data Objective Data Vital Signs: Vital Signs Temp Pulse Resp BP Pulse Ox O2 Del Method O2 Flow Rate 97.8 F 58 L 18 131/59 H 95 Room Air 2 05/29/22 08:00 05/29/22 08:00 05/29/22 08:00 05/29/22 08:00 05/29/22 08:30 05/29/22 10:00 05/28/22 11:54 Oxygen Flow Rate (L/min) 2 Oxygen Delivery Method Room Air Weight: 81 kg Body Mass Index (BMI) 32.6 Intake & Output: Intake and Output for Last 24 Hours 05/27/22 05/28/22 05/29/22 23:59 23:59 23:59 Intake Total 2500 / 3300 1402 / 1402 Output Total 2180 / 3180 2760 / 2760 Balance 320 / 120 -1358 / -1358 Lab / Micro Data Result Diagrams: 05/29/22 05:34 Labs: Laboratory Results - last 24 hr 05/29/22 05:34: WBC 12.2 H, RBC 3.92 L, Hgb 11.8 L, Hct 36.0 L, MCV 91.8, MCH 30.1, MCHC 32.8, RDW Std Deviation 44.8 H, RDW Coeff of Jennifer 13.3, Plt Count 222, MPV 9.6 Radiography Diagnostic Testing: Radiology Impression Brain CT 05/29/22 06:41 IMPRESSION: 1. No intracranial hemorrhage or acute territorial infarction. 2. Chronic lacunar infarcts in the left thalamus and basal ganglia, similar compared to the prior. 3. Senescent changes. Electronically Signed: El Aguilera MD at 7:16 EST , Physical Exam Const alert, oriented x3, no apparent distress and healthy appearing General Appearance: cooperative, well kempt and well developed Orientation / Consciousness: awake, oriented to person, oriented to place and oriented to time HEENT normocephalic, head/scalp atraumatic and moist oral mucous membranes HEENT Narrative: There is a some left facial drooping noted on examination Head and Scalp: normocephalic Eyes PERRL, EOMs intact bilaterally and conjunctivae normal Neck supple, no JVD and thyroid normal General: trachea midline Resp normal respiratory effort, no retractions, no use of accessory muscles and clear to auscultation bilaterally Auscultation: Negative for rales, rhonchi or wheezes Cardio regular rate, regular rhythm, S1 normal heart sound, S2 normal heart sound, no murmurs, no rub and no gallops GI normal to inspection, nondistended, normoactive bowel sounds, soft to palpation, non-tender and non-distended Extremity normal to inspection and no clubbing, cyanosis or edema Skin no rashes or lesions noted General Skin Exam: no breakdown Neuro oriented x3, CN's II-XII intact bilaterally, moves all extremities, no focal motor deficits and no sensory deficits noted Neuro Narrative: Left facial drooping is present Sensorium / Orientation: awake, alert, oriented to person, oriented to place and oriented to time Speech: speech normal Motor Exam: strength 5/5 throughout Psych affect normal Assessment & Plan Assessment/Plan (1) Status post hysterectomy with oophorectomy: PLAN: Plan 1. Left facial paresthesias-resolved at this time-cause unknown, patient had a CT of the brain today which showed evidence of old lacunar infarcts, it was unchanged from the last head CT that she had performed in 2019. I discussed her MRI findings in 2020 with the radiologist today, he states that there are strokes present on her previous MRI. I talked with the patient about doing any more imaging studies such as an MRI of the brain, and talking we had decided that we would not proceed with an MRI of the brain as her symptoms have resolved. I stressed she is to continue to take 81 mg aspirin for preventative purposes. 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 in [place]. I told the patient that she needs to get a long-term prescription from her PCP and she needs to have her cholesterol rechecked in 6 to 8 weeks. I explained to the patient that it is important for her LDL cholesterol to be better controlled due to her past history of strokes #5 cerebrovascular disease-patient is to remain on 81 mg aspirin daily and take her statin. #6 hypothyroidism-patient is to remain on her present medication I talked with urology and relayed that I feel the patient is medically stable for discharge home. Total clinical time spent by myself addressing the patient's medical problems, reviewing all the data, and collaborating with patient's care team: 35 minutes Charges/Coding Visit Charges Inpatient E&M: 19561 Subs Hosp L2
== END 2022-05-29 14:49 | disposition home or self-care (01) ==
LOC: SDC 05:18 → AC 05:18 → MS3 10:58
PROVIDERS: Urology; PCP Family Medicine; Referring Provider Obstetrics & Gynecology; Visit Provider Obstetrics & Gynecology
PROC: (CPT 58260; principal; 2022-05-28 07:10)
PROC: (CPT 57260; 2022-05-28 07:10)
DX: N81.3 Complete uterovaginal prolapse (principal); Q52.4 Other congenital malformations of vagina; N39.46 Mixed incontinence; N36.42 Intrinsic sphincter deficiency (ISD); N95.2 Postmenopausal atrophic vaginitis; N88.0 Leukoplakia of cervix uteri; N88.8 Other specified noninflammatory disorders of cervix uteri; N83.291 Other ovarian cyst, right side; D25.9 Leiomyoma of uterus, unspecified; L72.0 Epidermal cyst; I10 Essential (primary) hypertension; E78.00 Pure hypercholesterolemia, unspecified; E03.9 Hypothyroidism, unspecified; G51.0 Bell's palsy; R35.1 Nocturia; Z79.82 Long term (current) use of aspirin; Z79.899 Other long term (current) drug therapy; Z86.73 Personal history of transient ischemic attack (TIA), and cerebral infarction without residual deficits
CPT/HCPCS: 58262; 57288; 57260; 00944; 36415; 70450; 82962; 83735; 85027; 86850; 86900; 86901; 88307; 93005; 94668; 99252; J7120; C1758; G0463; J2405; J3475

== ENCOUNTER 2022-10-21 16:31 | Emergency (ER) | payer MEDICARE, OTHER, SELFPAY ==
[2022-10-21 16:33] VITALS: BP 197/74; PULSE 65; RESP 18; TEMP 36.3; O2SAT 95
--- NOTE | 2022-10-21 16:37 | CT_ITS ---
We are attempting to reach an attending provider to discuss findings. An addendum with communication details will be sent when the communication is complete. INDICATION: dizzy EXAMINATION: CT BRAIN WITH CONTRAST TECHNIQUE: Noncontrast axial images were obtained of the brain. Subsequently, routine carotid CT angiogram protocol was performed without and with IV contrast. In addition, images were obtained of the [place]. NASCET criteria using the distal ICAs for comparison were used for evaluation of stenoses. 3D reconstructions were reviewed. A radiation dose optimization technique was used for this scan. IV Contrast dosage and agent: COMPARISON: CT brain dated May 29, 2022 FINDINGS: --CT BRAIN: BRAIN PARENCHYMA: Old lacunar infarcts are noted in the left thalamus and basal ganglia. There is mild periventricular subcortical white matter lucency suggestive of small vessel ischemic disease. No intra- or extra-axial hemorrhage. No evidence of acute infarct. No intracranial mass or mass effect. There is preservation of the lund/white matter interface. Posterior fossa structures are unremarkable. CSF SPACES: Appropriate for age. No hydrocephalus. Basal cisterns are patent. CALVARIUM, SKULL BASE, PARANASAL SINUSES AND MASTOID AIR CELLS: Clear. No discrete lytic or blastic abnormalities. --CTA NECK: There is mild atherosclerotic change without evidence for hemodynamically significant stenosis. AORTIC ARCH AND BRANCHES: Normal anatomy, patent. RIGHT CCA: No occlusion, significant stenosis or dissection. RIGHT ICA: No occlusion, significant stenosis or dissection. LEFT CCA: No occlusion, significant stenosis or dissection. LEFT ICA: No occlusion, significant stenosis or dissection. RIGHT VERTEBRAL ARTERY: No occlusion, significant stenosis or dissection. LEFT VERTEBRAL ARTERY: The left vertebral artery is diminutive compared to the right. No occlusion, significant stenosis or dissection. NECK SOFT TISSUES: Unremarkable. --CTA HEAD: There is atherosclerotic change without evidence for hemodynamically significant stenosis. --Anterior circulation: ICAs: No significant stenosis at the intracranial/visualized segments. ACAs: No significant stenosis at the visualized segments. ACOM: Present. MCAs: No significant stenosis at the visualized segments. --Posterior circulation: PCOMs: Right posterior communicating artery is present and represents the primary supply to the right posterior cerebral artery. sash sticker: No significant stenosis at the visualized segments. BASILAR ARTERY: No significant stenosis. VERTEBRAL ARTERIES: No significant stenosis at the intradural/visualized segments. There is right vertebral artery dominance. No evidence of intracranial aneurysm or vascular malformation. IMPRESSION: Old left-sided lacunar infarcts as described. Small vessel ischemic changes. Atherosclerotic change as described without evidence for hemodynamically significant stenosis. Other findings as above. Electronically Signed: Byron Nelson, at 18:31 EDT , INDICATION: dizzy EXAMINATION: CT BRAIN - CT Head or Brain W/O Contrast Injection TECHNIQUE: Multiple axial images were obtained of the head without intravenous contrast. A radiation dose optimization technique was used for this scan. IV Contrast dosage and agent: None. RADIATION DOSAGE (If Supplied By Facility): CTDIvol = ( 44.99 ) mGy, DLP = ( 829.85 ) mGycm COMPARISON: FINDINGS: BRAIN PARENCHYMA: Old left-sided lacunar infarcts are noted in the thalamus and basal ganglia. There is periventricular and subcortical white matter lucency. No intra- or extra-axial hemorrhage. No evidence of acute infarct. No intracranial mass or mass effect. There is preservation of the lund/white matter interface. Posterior fossa structures are unremarkable. CSF SPACES: Appropriate for age. No hydrocephalus. Basal cisterns are patent. CALVARIUM, SKULL BASE, PARANASAL SINUSES AND MASTOID AIR CELLS: Clear. No discrete lytic or blastic abnormalities. CT/CTA Head AND Neck W/ Contrast IMPRESSION: Small vessel ischemic changes. Old left thalamus and basal ganglia lacunar infarcts. Electronically Signed: Byron Nelson, at 18:32 EDT ,
--- NOTE | 2022-10-21 16:37 | EKG12_ITS ---
Test Reason : Blood Pressure : / mmHG Vent. Rate : 057 BPM Atrial Rate : 057 BPM P-R Int : 230 ms QRS Dur : 088 ms QT Int : 472 ms P-R-T Axes : 063 025 079 degrees QTc Int : 459 ms Sinus bradycardia with 1st degree A-V block Cannot rule out Inferior infarct , age undetermined Abnormal ECG Confirmed by JHOAN GOULD, AROLDO ([id number]), digital editor ABHILASH PERALTA ([id number]) on 10/22/2022 10:43:06 AM Referred By: Confirmed By:AROLDO STAPLES MD
--- NOTE | 2022-10-21 16:37 | ED.RN ---
DR. VANEGAS STATES ROOM PT. NOT TO CALL STROKE ALERT AT THIS TIME.
--- NOTE | 2022-10-21 16:46 | EDS_ITS ---
HPI History of Present Illness Chief Complaint: Dizziness Detail of Chief Complaint: Dizziness, questionable stroke versus Corrales's palsy Informant: patient Narrative Narrative: Patient presents with dizziness and concern for possible stroke. She reports history of prior stroke and mini strokes. She states she has chronic left-sided facial weakness and decreased hearing in her left ear. Patient states that she felt well when she went to bed around 9 or 10:00 last evening. When she woke up this morning she felt dizzy. She is unsure if she is lightheaded or if things are spinning. She states her did get her walker out for her to use today. She denies headache or vision change. No recent illness. [facility] Medical History Aphthous ulcer of mouth Arthritis Corrales's palsy Benign essential hypertension Cancer Depression GERD (gastroesophageal reflux disease) High cholesterol History of echocardiogram History of stress test History of stroke Hyperlipidemia Hypertension Hypothyroidism Leg cramps Menieres disease Non-smoker Post-menopausal Stress incontinence Thyroid disease TIA (transient ischemic attack) Wears glasses Wears hearing aid Home Medications amlodipine 5 mg tablet 5 mg PO DAILY 09/22/15 [History Last Taken 05/28/22] lisinopril 20 mg tablet 20 mg PO DAILY #30 tabs 10/11/15 [Rx Last Taken 05/28/22] atenolol 25 mg tablet 25 mg PO DAILY 12/25/21 [History Last Taken 05/28/22] levothyroxine 175 mcg tablet 150 mcg PO DAILY 12/25/21 [History Last Taken 05/28/22] estradiol 0.01% (0.1 mg/gram) vaginal cream See Rx Instructions vaginal .COMPLEX #42.5 grams 02/24/22 [Rx Last Taken Unknown] B-complex with vitamin C 1 tab PO DAILY 05/21/22 [History Last Taken Unknown] ascorbic acid (vitamin C) 500 mg tablet (Vitamin C) 500 mg PO DAILY 05/21/22 [History Last Taken Unknown] aspirin 81 mg capsule 81 mg PO DAILY 05/21/22 [History Last Taken 05/19/22] calcium carb,cit ER 600 mg-vit D3 12.5 mcg (500 unit) tablet,ext.rel (Citracal- D3 Slow Release) 2 tab PO DAILY 05/21/22 [History Last Taken Unknown] cholecalciferol (vitamin D3) 125 mcg (5,000 unit) tablet (Vitamin D3) 125 mcg PO DAILY 05/21/22 [History Last Taken Unknown] garlic 1,000 mg capsule 1,000 mg PO DAILY 05/21/22 [History Last Taken Unknown] lysine 1,000 mg tablet 1,000 mg PO DAILY 05/21/22 [History Last Taken Unknown] magnesium 250 mg tablet 250 mg PO DAILY 05/21/22 [History Last Taken Unknown] omega-3 fatty acids 1,000 mg PO DAILY 05/21/22 [History Last Taken Unknown] turmeric root extract 500 mg capsule 500 mg PO DAILY 05/21/22 [History Last Taken Unknown] zinc lozenges 15 mg 15 mg PO DAILY 05/21/22 [History Last Taken Unknown] acyclovir 400 mg tablet 1 tab PO 5X/DAY #35 tabs 10/21/22 [Rx Last Taken Unknown] prednisone 20 mg tablet 40 mg (2 x 20 mg) PO DAILY #8 tabs 10/21/22 [Rx Last Taken Unknown] Allergy/AdvReac Type Severity Reaction Status Date / Time adhesive tape Allergy Rash Verified 10/21/22 16:31 Penicillins Allergy Rash Verified 10/21/22 16:31 pepper (genus Capsicum) Allergy Swelling Verified 10/21/22 16:31 Sulfa (Sulfonamide Allergy Rash Verified 10/21/22 16:31 Antibiotics) Family History Mother Heart disease Surgical History H/O breast biopsy H/O dilation and curettage H/O hernia repair H/O tubal ligation History of thyroidectomy Hx of colonoscopy Hx of surgical procedure Status post hysterectomy with oophorectomy Social History Smoking Status: Never smoker alcohol intake: never substance use type: does not use caffeine: Yes seatbelt use: always do you feel safe at home: Yes additional social history: - [place] ROS ROS ED Constitutional Constitutional ED: Denies chills or fever(s) Eyes Eyes: Denies change in vision or discharge from eye(s) ENT ENT ED: Denies discharge from eye(s), rhinorrhea or sore throat Cardiovascular Cardiovascular: Denies chest pain or palpitations Respiratory/Chest Respiratory/Chest: Denies cough or dyspnea Gastrointestinal Gastrointestinal: Denies abdominal pain, diarrhea, nausea or vomiting Genitourinary Genitourinary ED: Denies dysuria Musculoskeletal Musculoskeletal: Denies back pain or extremity pain Integumentary Denies Abrasions or rash Neurologic Neurologic: Reports weakness; Denies headache(s) Psychiatric Psychiatric: Denies anxiety or depression Allergic/Immunologic Allergic/Immunologic ED: Denies lip swelling or urticaria EXAM Physical Exam Const Vital Signs: 10/21/22 16:33 Temperature 97.4 F L Temperature Source Temporal Pulse Rate 65 Respiratory Rate 18 Blood Pressure 197/74 H Blood Pressure Mean 115 Pulse Ox 95 Oxygen Delivery Method Room Air Positive well nourished and well developed General Appearance ED: well developed HEENT Reports moist mucous membranes Eyes PERRL and EOMs intact bilaterally Neck no lymphadenopathy Chest Wall inspection of chest normal and palpation of chest normal Resp normal respiratory effort and clear to auscultation bilaterally Cardio regular rate and regular rhythm GI normal to inspection, nondistended, normoactive bowel sounds Extremity normal to inspection Neuro Neuro Narrative: Patient alert and oriented. She does have noted left-sided facial droop which she states is chronic. When I asked her to raise her eyebrows she is not able to raise her left eyebrow and does not have wrinkles on the left side of her forehead. Patient does not know if this is chronic or new. When asked her he states he is unsure as well. Patient has good strength and sensation noted in all extremities. Sensorium / Orientation: alert Psych mental status grossly normal Skin no rashes or lesions noted MDM MDM MDM Narrative Medical decision making narrative: Patient is reexamined when lying in the room as she was initially evaluated in triage. While lying in the bed patient denies dizziness. She states that every once in a while she will feel like things start moving. Given the fact that the patient has left forehead weakness and we are unsure if this is acute or chronic she will be worked up with differential diagnosis of Corrales's palsy. Labwork obt ained to evaluate for leukocytosis, anemia, and electrolyte derangement. EKG obtained to evaluate for cardiac arrhythmia/ischemia. Chest x-ray obtained to evaluate for acute lung pathology, cardiac size, or mediastinal abnormality. CTA of the head and neck obtained to evaluate for any acute changes. Lab Data Labs: Laboratory Results - last 24 hr 10/21/22 10/21/22 16:46 16:52 WBC 6.8 RBC 4.43 Hgb 13.7 Hct 39.9 MCV 90.1 MCH 30.9 MCHC 34.3 RDW Std Deviation 43.1 RDW Coeff of Jennifer 13.2 Plt Count 235 MPV 9.4 Immature Gran % (Auto) 0.700 Neut % (Auto) 58.4 Lymph % (Auto) 27.2 [place] % (Auto) 8.7 Eos % (Auto) 3.8 Baso % (Auto) 1.2 H Absolute Neuts (auto) 4.0 Absolute Lymphs (auto) 1.85 Nucleated RBC % 0 Sodium 137 Potassium 3.9 Chloride 108 H Carbon Dioxide 23.0 Anion Gap 6 BUN 23 H Creatinine 0.90 Est GFR (MDRD) Af Amer 78 Est GFR (MDRD) Non-Af 64 BUN/Creatinine Ratio 25.6 H Glucose 122 H Calcium 9.0 Troponin I High Sens 4 POC Glucose 123 H Radiography Chest X-Ray - ED: 1 View, Read by ED Physician, Chronic Changes and No Infiltrates Diagnostic Testing: Clinical Impression(s) from Imaging Studies Head/Neck CTA 10/21/22 16:37 IMPRESSION: Small vessel ischemic changes. Old left thalamus and basal ganglia lacunar infarcts. Electronically Signed: Byron Nelson, at 18:32 EDT Reading Location ID and State: [address] [place] [address] Tel , Service support , ADDENDUM: 10/21/22 1859 IMPRESSION: Small vessel ischemic changes. Old left thalamus and basal ganglia lacunar infarcts. N.B. : The above Results were Read Back by Byron Nelson to Afua Anderson MD, and understanding confirmed on 10/21/2022 18:52:46 (ET). Electronically Signed: Byron Nelson, at 18:32 EDT Reading Location ID and State: [address] [place] [address] Tel , Service support , Chest X-Ray 10/21/22 17:34 IMPRESSION: Tiny nodular density in the right lung. Otherwise no radiographic evidence of acute cardiopulmonary disease. Electronically Signed: Byron Nelson, at 17:46 EDT , EKG Initial EKG: Attestation: I personally reviewed and interpreted this EKG as follows: Interpretation: Sinus Bradycardia (Sinus bradycardia 57 bpm. No acute ischemia.) Treatment and Re-Evaluation :: CBC is unremarkable. Chemistry studies normal with normal potassium and normal renal function. Troponin normal at 4. Portable chest x-ray per my interpretation was chronic changes with no focal infiltrate. Radiology interpretation is reviewed and agrees. EKG is sinus bradycardia with no ischemia. CTA of the head and neck obtained. This reveals evidence of small vessel ischemic change and old lacunar infarcts. No evidence of acute infarct at this time. Patient was observed ambulating down the ruiz to the restroom with nursing staff. When I went back to reevaluate her she states she feels well and feels like she is ready to go home. She is not having any dizziness at this time. With patient having weakness on the left side of the forehead I will treat her for Corrales's palsy. It is noted, however, the patient is not able to tell me if this is new or old. She does have chronic left-sided facial droop. Blood pressure at time of discharge is 163/79. Discharge Plan Triage Chief Complaint: Dizziness ED Provider: Afua Anderson Dx/Rx/DC Orders Clinical Impression: Corrales's palsy Instructions: ED Corrales's Palsy Prescriptions: New prednisone 20 mg tablet 40 mg PO DAILY Qty: 8 0RF acyclovir 400 mg tablet 1 tab PO 5X/DAY Qty: 35 0RF No Action estradiol 0.01 % (0.1 mg/gram) cream See Rx Instructions vaginal .COMPLEX Qty: 42.5 2RF Rx Instructions: small amount as directed vaginal every day X 4 weeks then twice a week; levothyroxine 175 mcg tablet 150 mcg PO DAILY atenolol 25 mg tablet 25 mg PO DAILY Patient Comments: heart/blood pressure amlodipine 5 MG tablet 5 mg PO DAILY Patient Comments: blood pressure lisinopril 20 MG tablet 20 mg PO DAILY Qty: 30 0RF Patient Comments: BLOOD PRESSURE lysine 1,000 mg Tablet 1,000 mg PO DAILY garlic 1,000 mg Capsule 1,000 mg PO DAILY ascorbic acid (vitamin C) [Vitamin C] 500 mg Tablet 500 mg PO DAILY magnesium 250 mg Tablet 250 mg PO DAILY zinc lozenges 15 mg Lozenge 15 mg PO DAILY B-complex with vitamin C Tablet 1 tab PO DAILY omega-3 fatty acids Capsule 1,000 mg PO DAILY cholecalciferol (vitamin D3) [Vitamin D3] 125 mcg (5,000 unit) Tablet 125 mcg PO DAILY turmeric root extract 500 mg Capsule 500 mg PO DAILY calcium carb and citrate-vitD3 [Citracal-D3 Slow Release] 600 mg-12.5 mcg (500 unit) Tablet Extended Release 2 tab PO DAILY aspirin 81 mg Capsule 81 mg PO DAILY Primary Care Provider: Elis Cardenas Referrals: Elis Cardenas DO [Primary Care Provider] - 1-2 Weeks Disposition Disposition: Home, Self Care
[2022-10-21 17:05] LABS: Bedside Glucose 123 mg/dL (74-106)
[2022-10-21 17:15] LABS: Absolute Lymphocyte Count 1.85 X10^3/uL (0.83-4.51); Basophil# 0.08 X10^3/uL; Basophil% 1.2 % (0-1); Eosinophil# 0.26 X10^3/uL; Eosinophils% 3.8 % (0-5); Hematocrit 39.9 % (37-47); Hemoglobin 13.7 g/dL (12.0-15.0); Lymphocyte # 1.85 X10^3/ul (0.83-4.51); Lymphocyte % 27.2 % (19-41); Mean Corp Hgb Conc 34.3 g/dL (32-36); Mean Corpuscular Hgb 30.9 pg (27.0-32.0); Mean Corpuscular Volume 90.1 fL (81-99); Mean Platelet Vol. 9.4 fl (6.2-12.0); Monocyte# 0.59 X10^3/uL; Monocyte% 8.7 % (0-10); NRBC Flagged by Analyzer 0 % (0-5); Neutrophil # 3.97 X10^3/uL (2.7-7.7); Neutrophil % 58.4 % (47-70); Platelet Count 235 K/mm3 (150-450); RBC Distribution Width CV 13.2 % (11.6-14.6); RBC Distribution Width SD 43.1 fl (35.1-43.9); Red Blood Count 4.43 M/mm3 (4.2-5.4); White Blood Count 6.8 K/mm3 (4.4-11.0)
[2022-10-21 17:33] LABS: Anion Gap 6 (5-15); BUN 23 mg/dL (7-18); BUN/Creat Ratio 25.6 RATIO (10-20); Chloride 108 mmol/L (98-107); EST Glomerular Filtration Rate 64 mL/min (>60); Est Glom Filt Rate - Afr Amer 78 mL/min (>60); Glucose 122 mg/dL (74-106); Potassium 3.9 mmol/L (3.5-5.1); Sodium Level 137 mmol/L (136-145); Troponin-I HS 4 pg/mL (3.0-54.0)
--- NOTE | 2022-10-21 17:34 | RAD_ITS ---
INDICATION: sob EXAMINATION/TECHNIQUE: X-RAY - XR Chest 1 View COMPARISON: FINDINGS: LINES/DEVICES: None. LUNGS: No consolidation, edema or effusion. No pneumothorax. A tiny 2 mm nodular density is noted in the right upper lung appearing stable compared to December 23, 2017. MEDIASTINUM AND CARDIOVASCULAR STRUCTURES: Cardiac silhouette not enlarged. Central airways and mediastinal contour are unremarkable. BONES AND SOFT TISSUES: Unremarkable. RAD/Chest 1 View (Portable) IMPRESSION: Tiny nodular density in the right lung. Otherwise no radiographic evidence of acute cardiopulmonary disease. Electronically Signed: Byron Nelson, at 17:46 EDT ,
[2022-10-21] MEDS: predniSONE 20 MG Tablet 40 MG PO (20:05)
[2022-10-21] MEDS: Acyclovir 200 MG Capsule 400 MG PO (20:05)
[2022-10-21 20:07] VITALS: BMI 32.9
[2022-10-21 20:08] VITALS: BP 153/78; PULSE 56; PULSE 59; RESP 16; O2SAT 97
== END 2022-10-21 20:25 | disposition home or self-care (01) ==
PROVIDERS: Emergency Provider Emergency Medicine; PCP Family Medicine; Visit Provider Emergency Medicine
DX: G51.0 Bell's palsy (principal); I10 Essential (primary) hypertension; E03.9 Hypothyroidism, unspecified; Z79.82 Long term (current) use of aspirin; Z79.899 Other long term (current) drug therapy; Z86.73 Personal history of transient ischemic attack (TIA), and cerebral infarction without residual deficits
CPT/HCPCS: 70496; 70498; 71045; 80048; 82962; 84484; 85025; 93005; 99284; Q9967; A4216

== ENCOUNTER → 2022-11-11 | Outpatient (CLI) | payer MEDICARE, OTHER, SELFPAY ==
[2022-11-11 13:06] LABS: Free T3 1.9 pg/mL (2.18-3.98); T4 Free Direct 1.37 ng/dL (0.76-1.46); Thyroid Stim Hormone (TSH) 3.42 uIU/mL (0.358-3.74)
== END | disposition home or self-care (01) ==
LOC: BFHLAB 09:45
PROVIDERS: PCP Family Medicine; Referring Provider Family Medicine; Visit Provider Family Medicine
DX: E78.5 Hyperlipidemia, unspecified (principal); E03.9 Hypothyroidism, unspecified; Z51.81 Encounter for therapeutic drug level monitoring
CPT/HCPCS: 36415; 84439; 84443; 84481

== ENCOUNTER → 2023-01-13 | Outpatient (CLI) | payer MEDICARE, OTHER, SELFPAY ==
[2023-01-13 12:21] LABS: Absolute Lymphocyte Count 1.58 X10^3/uL (0.83-4.51); Absolute Neutrophil Count 3.3 X10^3/uL (2.0-7.7); Basophil# 0.09 X10^3/uL; Basophil% 1.6 % (0-1); Eosinophil# 0.22 X10^3/uL; Eosinophils% 3.9 % (0-5); Hematocrit 40.6 % (37-47); Hemoglobin 13.8 g/dL (12.0-15.0); Lymphocyte # 1.58 X10^3/ul (0.83-4.51); Lymphocyte % 28.1 % (19-41); Mean Corpuscular Hgb 31.1 pg (27.0-32.0); Mean Corpuscular Volume 91.4 fL (81-99); Mean Platelet Vol. 9.8 fl (6.2-12.0); Monocyte# 0.45 X10^3/uL; NRBC Flagged by Analyzer 0 % (0-5); Neutrophil # 3.26 X10^3/uL (2.7-7.7); Neutrophil % 57.9 % (47-70); Platelet Count 147 K/mm3 (150-450); RBC Distribution Width CV 12.8 % (11.6-14.6); RBC Distribution Width SD 42.5 fl (35.1-43.9); Red Blood Count 4.44 M/mm3 (4.2-5.4); White Blood Count 5.6 K/mm3 (4.4-11.0)
[2023-01-13 12:52] LABS: ALB/GLOB Ratio 1.1 RATIO (0.9-2.4); AST(SGOT) 13 U/L (15-37); Alanine Aminotransfer ALT/SGPT 24 U/L (13-56); Albumin, Serum 3.5 g/dL (3.2-5.0); Alkaline Phosphatase 75 U/L (45-117); Anion Gap 5 (5-15); BUN 21 mg/dL (7-18); BUN/Creat Ratio 21.1 RATIO (10-20); Calcium,Total 9.1 mg/dL (8.5-10.1); Chloride 109 mmol/L (98-107); Cholesterol 262 mg/dL (200); Creatinine, Serum 0.99 mg/dL (0.55-1.02); EST Glomerular Filtration Rate 57 mL/min (>60); Est Glom Filt Rate - Afr Amer 69 mL/min (>60); Free T3 2.3 pg/mL (2.18-3.98); Globulin 3.3 g/dL (2.2-4.2); Glucose 102 mg/dL (74-106); High Density Lipoprotein 44 mg/dL; Potassium 4.4 mmol/L (3.5-5.1); Protein, Total 6.8 g/dL (6.4-8.2); Sodium Level 138 mmol/L (136-145); Thyroid Stim Hormone (TSH) 3.81 uIU/mL (0.358-3.74); Triglycerides 381 mg/dL; Very Low Density Lipoprotein 76 mg/dL (5-40)
== END | disposition home or self-care (01) ==
LOC: BFHLAB 10:21
PROVIDERS: PCP Family Medicine; Referring Provider Family Medicine; Visit Provider Family Medicine
DX: E78.5 Hyperlipidemia, unspecified (principal); E03.9 Hypothyroidism, unspecified; Z51.81 Encounter for therapeutic drug level monitoring
CPT/HCPCS: 36415; 80053; 80061; 84439; 84443; 84481; 85025

== ENCOUNTER → 2023-01-15 | Outpatient (CLI) | payer MEDICARE, OTHER, SELFPAY ==
--- NOTE | 2023-01-15 11:55 | BI_ITS ---
MAMMOGRAPHY - BILATERAL SCREENING REASON FOR EXAM: Female, 77 years old. Routine annual screening examination. PERTINENT HISTORY: Aunt with breast cancer. Prior right stereotactic breast biopsy. TECHNIQUE: Digital bilateral breast nica (3D mammographic acquisition) in the CC and MLO projections. 2-D mediolateral oblique (MLO) and craniocaudad (CC) views of both breasts were obtained. CAD: Full Field Digital Mammography with Computer Added Detection was performed. COMPARISON: Comparison is made with prior study January 13, 2022. FINDINGS: Breast Composition: There are scattered areas of fibroglandular density. There are no dominant masses or suspicious calcifications. A tissue clip marker is seen within the central aspect of the right breast. Stable benign-appearing bilateral axillary lymph nodes. No other significant abnormalities are identified. There has been no significant change since the prior study. BI/SCRN MAMM (CAD)W/NICA BILAT IMPRESSION: Stable bilateral screening mammogram. Yearly follow-up mammogram recommended. (A) ASSESSMENT CATEGORY: BIRADS Category 2: Benign. A letter regarding these results will be sent to the patient by the facility within 30 days. Approximately 10% of breast cancers are not detected by mammography. A normal mammogram should not delay biopsy of a clinically suspicious abnormality. [id number] Electronically Signed: Matthias Holland MD at 13:19 EDT ,
== END | disposition home or self-care (01) ==
LOC: OPBI 11:53
PROVIDERS: PCP Family Medicine; Referring Provider Family Medicine; Visit Provider Family Medicine
DX: Z12.31 Encounter for screening mammogram for malignant neoplasm of breast (principal)
CPT/HCPCS: 77063; 77067

== ENCOUNTER 2023-03-12 00:19 | Inpatient (IN) | payer MEDICARE, OTHER, SELFPAY ==
[2023-03-12] VITALS (26 sets, daily range): BP systolic 127–167; BP diastolic 61–85; PULSE 58–75; RESP 14–23; TEMP 36.1–37.1; O2SAT 94–99; BMI 33.5; BMI 32.5
--- NOTE | 2023-03-12 00:23 | RAD_ITS ---
STUDY: X-RAY CHEST REASON FOR EXAM: Female, 77 years old. Chest pain TECHNIQUE: Single AP portable view of the chest. COMPARISON: October 21, 2022, December 23, 2017 chest x-ray FINDINGS: Allowing for technique there is a slightly greater prominent appearance of the right hilum. There is no demonstrated pleural abnormality. There is borderline cardiomegaly. Normal mediastinum and humaira. Normal visualized pulmonary arteries. There is atherosclerotic tortuosity of the aortic arch and descending thoracic aorta. Normal visualized thoracic spine. Normal visualized ribs, clavicles, and shoulders. There is no demonstrated abnormality of the visualized soft tissue structures of the upper abdomen. RAD/Chest 1 View (Portable) IMPRESSION: Mild prominence of the right hilum which may represent an enlarged right pulmonary artery possible pulmonary hypertension versus lymphadenopathy. Borderline cardiac enlargement. Electronically Signed: Radha Little MD at 1:14 EST ,
--- NOTE | 2023-03-12 00:28 | EKG12_ITS ---
Test Reason : Blood Pressure : / mmHG Vent. Rate : 070 BPM Atrial Rate : 070 BPM P-R Int : 206 ms QRS Dur : 090 ms QT Int : 432 ms P-R-T Axes : 046 034 073 degrees QTc Int : 466 ms Normal sinus rhythm Nonspecific ST abnormality Abnormal ECG Confirmed by JHOAN GOULD, AROLDO ([id number]), news copy editor ABHILASH PERALTA ([id number]) on 03/17/2023 12:06:53 PM Referred By: Confirmed By:AROLDO STAPLES MD
[2023-03-12 00:47] LABS: Absolute Lymphocyte Count 1.92 X10^3/uL (0.83-4.51); Absolute Neutrophil Count 4.3 X10^3/uL (2.0-7.7); Basophil% 1.4 % (0-1); Eosinophil# 0.16 X10^3/uL; Eosinophils% 2.3 % (0-5); Hematocrit 39.9 % (37-47); Hemoglobin 13.2 g/dL (12.0-15.0); Lymphocyte # 1.92 X10^3/ul (0.83-4.51); Mean Corp Hgb Conc 33.1 g/dL (32-36); Mean Corpuscular Hgb 29.9 pg (27.0-32.0); Mean Corpuscular Volume 90.3 fL (81-99); Mean Platelet Vol. 9.1 fl (6.2-12.0); Monocyte# 0.58 X10^3/uL; Monocyte% 8.2 % (0-10); NRBC Flagged by Analyzer 0 % (0-5); Neutrophil # 4.29 X10^3/uL (2.7-7.7); Neutrophil % 60.3 % (47-70); Platelet Count 239 K/mm3 (150-450); RBC Distribution Width CV 13.4 % (11.6-14.6); RBC Distribution Width SD 44.1 fl (35.1-43.9); Red Blood Count 4.42 M/mm3 (4.2-5.4); White Blood Count 7.1 K/mm3 (4.4-11.0)
[2023-03-12 01:06] LABS: Anion Gap 8 (5-15); BUN 24 mg/dL (7-18); BUN/Creat Ratio 26.5 RATIO (10-20); Calcium,Total 8.9 mg/dL (8.5-10.1); Chloride 109 mmol/L (98-107); Creatinine, Serum 0.91 mg/dL (0.55-1.02); EST Glomerular Filtration Rate 64 mL/min (>60); Est Glom Filt Rate - Afr Amer 77 mL/min (>60); Estimated Creatinine Clearance 39.65 ml/min; Glucose 124 mg/dL (74-106); Sodium Level 140 mmol/L (136-145); Troponin-I HS (w/2H Reflex) 88 pg/mL (3.0-54.0)
[2023-03-12 02:41] LABS: Reflex Troponin-HS? (from REC) Y
[2023-03-12 03:47] LABS: D-Dimer Quantitative (DVT/PE) 0.37 FEU/ug/m (0.27-0.49)
[2023-03-12 03:49] LABS: Troponin-I HS 400 pg/mL (3.0-54.0)
--- NOTE | 2023-03-12 04:23 | EDS_ITS ---
HPI History of Present Illness Chief Complaint: Chest Pain Informant: patient and spouse/S.O. Narrative Narrative: Patient is a 77-year-old female with past medical history of hypertension hyperlipidemia and previous stroke. She states around 10 PM she developed some vague midsternal chest discomfort that lasted for approximately an hour and then spontaneously resolved. She states that she was concerned this could be cardiac in nature based on the presentation and therefore comes in for evaluation. He denies any recent surgery or travel history of DVT or PE and she states she does not take any type of blood thinner other than a baby aspirin [facility] Medical History (Updated 03/12/23 @ 08:[address] Martin Wilkins, DO) Aphthous ulcer of mouth Arthritis Corrales's palsy Benign essential hypertension Cancer Chest pain Depression GERD (gastroesophageal reflux disease) Hearing loss, left High cholesterol History of echocardiogram History of stress test History of stroke Hyperlipidemia Hypertension Hypothyroidism Leg cramps Menieres disease Non-smoker Post-menopausal Stress incontinence Stroke/cerebrovascular accident Thyroid disease TIA (transient ischemic attack) Wears glasses Wears hearing aid Home Medications amlodipine 5 mg tablet 5 mg PO DAILY 09/22/15 [History Last Taken 05/28/22] lisinopril 20 mg tablet 20 mg PO DAILY #30 tabs 10/11/15 [Rx Last Taken 05/28/22] atenolol 25 mg tablet 25 mg PO DAILY 12/25/21 [History Last Taken 05/28/22] levothyroxine 175 mcg tablet 137 mcg PO DAILY 12/25/21 [History Last Taken 05/28/22] B-complex with vitamin C 1 tab PO DAILY 05/21/22 [History Last Taken Unknown] ascorbic acid (vitamin C) 500 mg tablet (Vitamin C) 500 mg PO DAILY 05/21/22 [History Last Taken Unknown] aspirin 81 mg capsule 81 mg PO DAILY 05/21/22 [History Last Taken 05/19/22] calcium carb,cit ER 600 mg-vit D3 12.5 mcg (500 unit) tablet,ext.rel (Citracal- D3 Slow Release) 2 tab PO DAILY 05/21/22 [History Last Taken Unknown] cholecalciferol (vitamin D3) 125 mcg (5,000 unit) tablet (Vitamin D3) 125 mcg PO DAILY 05/21/22 [History Last Taken Unknown] garlic 1,000 mg capsule 1,000 mg PO DAILY 05/21/22 [History Last Taken Unknown] lysine 1,000 mg tablet 1,000 mg PO DAILY 05/21/22 [History Last Taken Unknown] turmeric root extract 500 mg capsule 500 mg PO DAILY 05/21/22 [History Last Taken Unknown] zinc lozenges 15 mg 15 mg PO DAILY 05/21/22 [History Last Taken Unknown] prednisone 20 mg tablet 40 mg (2 x 20 mg) PO DAILY #8 tabs 10/21/22 [Rx Last Taken Unknown] atorvastatin 40 mg tablet 40 mg PO DAILY #90 tabs 02/15/23 [Rx Last Taken Unknown] citalopram 10 mg tablet 10 mg PO DAILY #30 tabs 02/16/23 [Rx Last Taken Unknown] Allergy/AdvReac Type Severity Reaction Status Date / Time Sulfa (Sulfonamide Allergy Intermediate Rash Verified 03/12/23 00:21 Antibiotics) pepper (genus Capsicum) Allergy Swelling Verified 03/12/23 00:21 adhesive tape AdvReac Intermediate Rash Verified 03/12/23 00:21 Penicillins AdvReac Unknown Rash Verified 03/12/23 00:21 Family History Mother Heart disease Surgical History H/O breast biopsy H/O dilation and curettage H/O hernia repair H/O tubal ligation History of thyroidectomy Hx of colonoscopy Hx of surgical procedure Status post hysterectomy with oophorectomy Social History Smoking Status: Never smoker alcohol intake: never substance use type: does not use caffeine: Yes seatbelt use: always do you feel safe at home: Yes additional social history: - [place] ROS ROS ED Constitutional Constitutional ED: Denies chills or fever(s) ENT ENT ED: Denies sore throat Cardiovascular Cardiovascular: Reports chest pain; Denies palpitations or racing heartbeat Respiratory/Chest Respiratory/Chest: Denies cough or dyspnea Gastrointestinal Gastrointestinal: Reports nausea; Denies abdominal pain, diarrhea or vomiting Genitourinary Genitourinary ED: Denies dysuria Musculoskeletal Musculoskeletal: Denies back pain or myalgias Integumentary Denies rash Neurologic Neurologic: Denies headache(s) Hematologic/Lymphatic Hematologic/Lymphatic: Denies easy bleeding or easy bruising EXAM Physical Exam Const Vital Signs: 03/12/23 00:19 03/12/23 00:48 03/12/23 00:49 Temperature 97.9 F Temperature Source Temporal Pulse Rate 71 Respiratory Rate 18 Respiratory Effort Normal Non-Labored Blood Pressure 167/72 H Blood Pressure Mean 103 Pulse Ox 99 Oxygen Delivery Method Room Air Room Air 03/12/23 00:50 03/12/23 03:56 Temperature 97.9 F Temperature Source Pulse Rate 67 Respiratory Rate 18 Respiratory Effort Blood Pressure 146/74 H 151/69 H Blood Pressure Mean 98 96 Pulse Ox 96 Oxygen Delivery Method Positive well nourished and well developed General Appearance ED: well developed HEENT HEENT Narrative: Normocephalic atraumatic Eyes PERRL and EOMs intact bilaterally General Eye ED: Negative for scleral icterus Neck supple and No no JVD Chest Wall palpation of chest normal Chest Narrative: No bony deformity or crepitance noted Resp normal respiratory effort and clear to auscultation bilaterally Cardio regular rate and regular rhythm Rate: other Other Details: Radial and carotid pulses are equal and symmetric GI normal to inspection, nondistended, normoactive bowel sounds, non-tender and non-distended GI Narrative: No voluntary guarding or rigidity no pulsatile mass or fluid wave Auscultation: normoactive bowel sounds Palpation: soft Extremity normal to inspection Extremity Narrative: No asymmetric edema no pitting edema negative Homans' sign bilaterally Neuro oriented x3 Neuro Narrative: Patient has chronic changes from previous CVA such as mild facial droop but no new or acute findings Sensorium / Orientation: alert Psych mental status grossly normal Skin no rashes or lesions noted MDM MDM MDM Narrative Medical decision making narrative: Patient presented to the ER with spontaneous resolution of her chest pain but her history and risk factors are concerning for acute coronary syndrome. Also concern for potential pneumonia versus pneumothorax versus pulmonary embolus versus dissection. Patient blood work was obtained which shows initial troponin of 88 concerning for acute coronary syndrome but D-dimer was negative going against PE or dissection. The patient had spontaneous resolution of pain. Delta troponin climbed to 400 and there are new T wave inversions concerning for ischemia. Case was then discussed with cardiology on-call who recommends heparin infusion and admission to the hospital for heart cath later today. This plan of care was discussed with the patient and and both are agreeable to it. Was in contact to agrees except admission at this time to continue to monitor patient's symptoms and troponin values while she awaits heart cath History & Record Review Discussion w/independent historian: Patient and Significant other Lab Data Attestation: I reviewed the patient's lab results. Labs: Laboratory Results - last 24 hr 03/12/23 03/12/23 00:38 02:50 WBC 7.1 RBC 4.42 Hgb 13.2 Hct 39.9 MCV 90.3 MCH 29.9 MCHC 33.1 RDW Std Deviation 44.1 H RDW Coeff of Jennifer 13.4 Plt Count 239 MPV 9.1 Immature Gran % (Auto) 0.800 Neut % (Auto) 60.3 Lymph % (Auto) 27.0 [place] % (Auto) 8.2 Eos % (Auto) 2.3 Baso % (Auto) 1.4 H Absolute Neuts (auto) 4.3 Absolute Lymphs (auto) 1.92 Nucleated RBC % 0 PT 12.0 INR 0.9 APTT 29.2 D-Dimer Quant (PE/DVT) 0.37 Sodium 140 Potassium 4.0 Chloride 109 H Carbon Dioxide 23.0 Anion Gap 8 BUN 24 H Creatinine 0.91 Estim Creat Clear Calc 39.65 Est GFR (MDRD) Af Amer 77 Est GFR (MDRD) Non-Af 64 BUN/Creatinine Ratio 26.5 H Glucose 124 H Calcium 8.9 Troponin I High Sens 88 H 400 H* Radiography Diagnostic Testing: Clinical Impression(s) from Imaging Studies Chest X-Ray 03/12/23 00:23 IMPRESSION: Mild prominence of the right hilum which may represent an enlarged right pulmonary artery possible pulmonary hypertension versus lymphadenopathy. Borderline cardiac enlargement. Electronically Signed: Radha Little MD at 1:14 EST , Chest x-ray is interpreted by the emergency medicine physician reveals mild prominence of the hilum without acute infiltrate pneumothorax pleural effusion or widening of the mediastinum Management Discussion w/another healthcare provider: Hospitalist and Track Worker Critical Care Time Critical Care Time: Yes Critical care time (excluding procedures): Discussing w/Patient &/or Family/Compound Coating Machine Offbearer, Discussing w/Consultants and - (Critical care time of 33 minutes) Discharge Plan Dx/Rx/DC Orders Clinical Impression: Acute non-ST elevation myocardial infarction (NSTEMI), Hyperlipidemia, Hypertension Disposition Disposition: Acute Care Hospital [facility] Discharge Date/Time: 03/12/23 05:15
--- NOTE | 2023-03-12 04:30 | EKG12_ITS ---
Test Reason : REPEAT Blood Pressure : / mmHG Vent. Rate : 069 BPM Atrial Rate : 069 BPM P-R Int : 212 ms QRS Dur : 080 ms QT Int : 420 ms P-R-T Axes : 068 028 081 degrees QTc Int : 450 ms Sinus rhythm with 1st degree A-V block ST & T wave abnormality, consider anterolateral ischemia Abnormal ECG Confirmed by JHOAN GOULD, AROLDO ([id number]), film editor ABHILASH PERALTA ([id number]) on 03/17/2023 12:07:28 PM Referred By: NAHUM Confirmed By:AROLDO STAPLES MD
--- NOTE | 2023-03-12 04:32 | PCM.HP.STD ---
HPI - General General Date of Admission: 03/12/23 Date of Service: 03/12/23 Chief Complaint: Chest pain HPI Narrative ROBSON BROWNING, is a 77 F who presented to the emergency department at [facility] on 03/12/2023 just after midnight complaining of chest pain that started about an hour prior to presentation that goes across her chest from right to left. She denied any radiation of symptoms elsewhere or shortness of breath that was associated. She also denied any associated diaphoresis, nausea or vomiting. She has a family history of coronary disease in her mother and was never a smoker. She has a history of hypertension, hyperlipidemia as well as TIAs and takes a daily baby aspirin. She states her symptoms are currently resolved. Vital signs at presentation showed temperature of 97.9, heart rate 67, blood pressure 146/74, respiratory rate was 18 oxygen saturations were 96% room air. Her CBC was unremarkable. Coags are pending. D-dimer was 0.37. Chemistry panel was overall unremarkable. Troponin was initially 88 with a repeat of 400. Her initial EKG was unremarkable however repeat EKG was done at about 2 hours which showed new T wave inversions in leads V2 through V6. Chest x-ray showed prominence in the right hilum which was suggested to represent an enlarged right pulmonary artery versus lymphadenopathy and borderline cardiac enlargement [facility] Medical History Aphthous ulcer of mouth Arthritis Corrales's palsy Benign essential hypertension Cancer Depression GERD (gastroesophageal reflux disease) High cholesterol History of echocardiogram History of stress test History of stroke Hyperlipidemia Hypertension Hypothyroidism Leg cramps Menieres disease Non-smoker Post-menopausal Stress incontinence Thyroid disease TIA (transient ischemic attack) Wears glasses Wears hearing aid Home Medications amlodipine 5 mg tablet 5 mg PO DAILY 09/22/15 [History Last Taken 05/28/22] lisinopril 20 mg tablet 20 mg PO DAILY #30 tabs 10/11/15 [Rx Last Taken 05/28/22] atenolol 25 mg tablet 25 mg PO DAILY 12/25/21 [History Last Taken 05/28/22] levothyroxine 175 mcg tablet 137 mcg PO DAILY 12/25/21 [History Last Taken 05/28/22] B-complex with vitamin C 1 tab PO DAILY 05/21/22 [History Last Taken Unknown] ascorbic acid (vitamin C) 500 mg tablet (Vitamin C) 500 mg PO DAILY 05/21/22 [History Last Taken Unknown] aspirin 81 mg capsule 81 mg PO DAILY 05/21/22 [History Last Taken 05/19/22] calcium carb,cit ER 600 mg-vit D3 12.5 mcg (500 unit) tablet,ext.rel (Citracal-D3 Slow Release) 2 tab PO DAILY 05/21/22 [History Last Taken Unknown] cholecalciferol (vitamin D3) 125 mcg (5,000 unit) tablet (Vitamin D3) 125 mcg PO DAILY 05/21/22 [History Last Taken Unknown] garlic 1,000 mg capsule 1,000 mg PO DAILY 05/21/22 [History Last Taken Unknown] lysine 1,000 mg tablet 1,000 mg PO DAILY 05/21/22 [History Last Taken Unknown] turmeric root extract 500 mg capsule 500 mg PO DAILY 05/21/22 [History Last Taken Unknown] zinc lozenges 15 mg 15 mg PO DAILY 05/21/22 [History Last Taken Unknown] prednisone 20 mg tablet 40 mg (2 x 20 mg) PO DAILY #8 tabs 10/21/22 [Rx Last Taken Unknown] atorvastatin 40 mg tablet 40 mg PO DAILY #90 tabs 02/15/23 [Rx Last Taken Unknown] citalopram 10 mg tablet 10 mg PO DAILY #30 tabs 02/16/23 [Rx Last Taken Unknown] Allergy/AdvReac Type Severity Reaction Status Date / Time Sulfa (Sulfonamide Allergy Intermediate Rash Verified 03/12/23 00:21 Antibiotics) pepper (genus Capsicum) Allergy Swelling Verified 03/12/23 00:21 adhesive tape AdvReac Intermediate Rash Verified 03/12/23 00:21 Penicillins AdvReac Unknown Rash Verified 03/12/23 00:21 Family History Mother Heart disease Surgical History H/O breast biopsy H/O dilation and curettage H/O hernia repair H/O tubal ligation History of thyroidectomy Hx of colonoscopy Hx of surgical procedure Status post hysterectomy with oophorectomy Social History Smoking Status: Never smoker alcohol intake: never substance use type: does not use caffeine: Yes seatbelt use: always do you feel safe at home: Yes additional social history: - [place] ROS Constitutional Constitutional: Denies anorexia, change in weight, chills, fatigue, fever(s), malaise, night sweats, weakness or other Eyes Eyes: Denies blurry vision, change in eye color, change in vision, discharge from eye(s), double vision, erythema, eye pain, loss of vision or other ENT HEENT: Denies abnormal hearing, dysphagia, ear pain, epistaxis, headache(s), hearing loss, nasal congestion, nasal discharge, post nasal drip, sinus pressure, sore throat or other Cardiovascular Cardiovascular: Reports chest pain; Denies claudication, dyspnea on exertion, edema, lightheadedness, orthopnea, palpitations, paroxysmal nocturnal dyspnea, rapid heart rate, syncope or other Respiratory/Chest Respiratory/Chest: Denies cough, dyspnea, excessive phlegm production, hemoptysis, productive cough, shortness of breath at rest, shortness of breath with exertion, wheezing or other Gastrointestinal Gastrointestinal: Denies abdominal pain, coffee ground emesis, constipation, diarrhea, dyspepsia, hematemesis, hematochezia, loose stools, melena, nausea, vomiting or other Genitourinary Genitourinary: Denies burning urination, difficulty urinating, dysuria, hematuria, nocturia, urinary frequency, urinary hesitancy, urinary incontinence, urinary urgency or other Musculoskeletal Musculoskeletal: Denies arthralgias, back pain, joint pain, joint stiffness, joint swelling, myalgias, neck pain or other Neurologic Neurologic: Denies abnormal gait, abnormal speech, confusion, disequilibrium, dizziness, focal weakness, headache(s), numbness, paresthesias, seizure-like activity, seizures, syncope, tingling, tremor(s) or other Psychiatric Psychiatric: Denies anxiety, depression, homicidal ideation, suicidal ideation or other Endocrine Endocrinology: Denies change in body appearance, cold intolerance, excessive sweating, heat intolerance, polydipsia, polyuria or other Hematologic/Lymphatic Hematologic/Lymphatic: Denies anemia, easy bleeding, easy bruising, lymphadenopathy or other Allergic/Immunologic Allergic/Immunologic: Denies rhinitis, hives, eczemia, asthma or other Vital Signs Vital Signs Vital Signs: 03/12/23 00:19 03/12/23 00:48 03/12/23 00:49 Temperature 97.9 F Temperature Source Temporal Pulse Rate 71 Respiratory Rate 18 Respiratory Effort Normal Non-Labored Blood Pressure 167/72 H Blood Pressure Mean 103 Pulse Ox 99 Oxygen Delivery Method Room Air Room Air 03/12/23 00:50 03/12/23 03:56 Temperature 97.9 F Temperature Source Pulse Rate 67 Respiratory Rate 18 Respiratory Effort Blood Pressure 146/74 H 151/69 H Blood Pressure Mean 98 96 Pulse Ox 96 Oxygen Delivery Method Weight Weight: 83.007 kg Body Mass Index (BMI) 33.5 Physical Exam Const alert, oriented x3, no apparent distress and well nourished; Negative for average body habitus Constitutional Narrative: Obese, older, white female, sitting up in bed, appears comfortable and nontoxic, nursing at bedside General Appearance: cooperative HEENT normocephalic, head/scalp atraumatic, hearing grossly normal bilaterally and moist oral mucous membranes HEENT Narrative: Dentition is poor, Mallampati is 2-3, no thrush Resp normal respiratory effort, no retractions, no use of accessory muscles and clear to auscultation bilaterally Auscultation: Negative for rales, rhonchi or wheezes Cardio regular rate, regular rhythm, S1 normal heart sound, S2 normal heart sound, no murmurs, no rub, no gallops and no clicks GI normal to inspection, nondistended, normoactive bowel sounds, soft to palpation and non-tender Extremity no clubbing, cyanosis or edema Extremity Narrative: Pedal pulses are 2+, radial pulses are 2+ Neuro oriented x3, moves all extremities and no focal motor deficits Speech: speech normal Psych affect normal Psych Narrative: Very pleasant, interacts appropriately Results Lab / Micro Data 03/12/23 00:38 03/12/23 00:38 Labs: Laboratory Results - last 24 hr 03/12/23 00:38: WBC 7.1, RBC 4.42, Hgb 13.2, Hct 39.9, MCV 90.3, MCH 29.9, MCHC 33.1, RDW Std Deviation 44.1 H, RDW Coeff of Jennifer 13.4, Plt Count 239, MPV 9.1, Immature Gran % (Auto) 0.800, Neut % (Auto) 60.3, Lymph % (Auto) 27.0, [place] % (Auto) 8.2, Eos % (Auto) 2.3, Baso % (Auto) 1.4 H, Absolute Neuts (auto) 4.3, Absolute Lymphs (auto) 1.92, Nucleated RBC % 0, D-Dimer Quant (PE/DVT) 0.37, Sodium 140, Potassium 4.0, Chloride 109 H, Carbon Dioxide 23.0, Anion Gap 8, BUN 24 H, Creatinine 0.91, Estim Creat Clear Calc 39.65, Est GFR (MDRD) Af Amer 77, Est GFR (MDRD) Non-Af 64, BUN/Creatinine Ratio 26.5 H, Glucose 124 H, Calcium 8.9, Troponin I High Sens 88 H 03/12/23 02:50: Troponin I High Sens 400 H* Imagaing Radiology Impression Chest X-Ray 03/12/23 00:23 IMPRESSION: Mild prominence of the right hilum which may represent an enlarged right pulmonary artery possible pulmonary hypertension versus lymphadenopathy. Borderline cardiac enlargement. Electronically Signed: Radha Little MD at 1:14 EST , Assessment & Plan Assessment/Plan (1) Acute non-ST elevation myocardial infarction (NSTEMI): PLAN: Plan NSTEMI -Initial troponin 88 with a delta of 400 -Initial EKG was unremarkable however repeat shows new T wave inversions in lead V2 through V6 -Continue home baby aspirin -Continue home atenolol -Increase atorvastatin from 40 mg to 80 mg for pleiotropic effects -Continue home lisinopril -Check hemoglobin A1c -Check lipid panel -Heparin drip -Check echocardiogram -Consult cardiology HTN/HPL -Continue home amlodipine -Continue home atenolol -Continue atorvastatin but increase dose is no -Continue home lisinopril Hypothyroidism/history of thyroid cancer -Status post thyroidectomy in 1993 -Continue home levothyroxine History of TIAs -Continue home aspirin -Continue outpatient follow-up with neurology History of uterine prolapse -status post hysterectomy Obesity -BMI 33.5 -Recommend weight loss -Complicates treatment, prognosis, outcomes DVT prophylaxis -Patient will be full anticoagulation with heparin drip due to the above NSTEMI CODE STATUS -Full code as verified on admission Charges/Coding Visit Charges Inpatient E&M: 78755 Init Hosp L2
[2023-03-12 04:52] LABS: International Normalized Ratio 0.9
[2023-03-12 04:53] LABS: Partial Thromboplast Time 29.2 Seconds (24.1-36.2)
[2023-03-12] MEDS: Aspirin 81 MG TAB.CHEW 324 MG PO (04:56)
[2023-03-12] MEDS: Heparin Injection (Vial) 5,000 UNIT/ML VIAL 4000 UNIT IV (04:57)
[2023-03-12] MEDS: HEPARIN/D5w 25,000 UNITS 25,000 UNITS/250 ML IV.SOLN. 10 UNITS CONT INF (04:59)
--- NOTE | 2023-03-12 05:55 | ECHOCS_ITS ---
Reason For Study: CAD/ASHD Procedure This was a 2D Doppler, Color Flow transthoracic echocardiogram. Exam performed portable in patient room. Left Ventricle Normal left ventricle. The estimated ejection fraction is 35-40 %. Right Ventricle Normal right ventricle. Normal systolic function. Atria Normal left atrium. Normal right atrium. Mitral Valve There is mild to moderate mitral annular calcification. Mild (1+) mitral valve insufficiency. Tricuspid Valve Normal tricuspid valve. Aortic Valve Mild diffuse aortic valve calcification. Mild (1+) aortic valve insufficiency. Pulmonic Valve The pulmonic valve is not well visualized. Great Vessels Normal aortic root. Pericardium/Pleural No pericardial effusion. Medication Diluted definity 3ml given slow IV push to enhance endocardial definition. MMode/2D Measurements & Calculations LVIDd: 5.9 cm IVSd: 1.0 cm Ao root diam: 3.4 cm LVIDs: 4.3 cm LVPWd: 0.97 cm RVDd: 3.4 cm FS: 26.1 % LAV(MOD-bp): 57.8 ml LVAd ap4: 28.6 cm2 SV(MOD-sp4): 38.6 ml LAV(MOD-bp) Indexed: 31.8 ml/m2 LVLd ap4: 7.3 cm LAV(MOD-sp2): 51.9 ml EDV(MOD-sp4): 90.4 ml LAV(MOD-sp4): 61.3 ml EDV(sp4-el): 94.7 ml LVAs ap4: 21.6 cm2 LVLs ap4: 7.4 cm ESV(MOD-sp4): 51.8 ml ESV(sp4-el): 53.9 ml EF(MOD-sp4): 42.6 % EF(sp4-el): 43.1 % SV(sp4-el): 40.8 ml LA A4 area: 21.1 cm2 LA dimension(2D): 4.2 cm RA A4 area: 9.3 cm2 TAPSE: 2.2 cm Time Measurements MV dec time: 0.19 sec Doppler Measurements & Calculations MV E max romaine: 63.6 cm/sec Lat Peak E' Romaine: 3.6 cm/sec Med Peak E' Romaine: 4.2 cm/sec MV A max romaine: 79.0 cm/sec E/E' lat: 17.6 E/E' med: 15.3 MV E/A: 0.80 MV dec slope: 331.8 cm/sec2 Ao V2 max: 152.9 cm/sec AI max romaine: 357.4 cm/sec Ao max P.4 mmHg AI max P.2 mmHg Ao V2 mean: 118.5 cm/sec AI dec slope: 266.2 cm/sec2 Ao mean P.0 mmHg AI P1/2t: 393.2 msec Ao V2 VTI: 37.4 cm AV (velocity ratio): 0.70 LV V1 max: 113.8 cm/sec PA V2 max: 82.7 cm/sec TR max romaine: 200.4 cm/sec LV V1 max P.2 mmHg TR max P.1 mmHg LV V1 mean P.0 mmHg LV V1 mean: 83.6 cm/sec LV V1 VTI: 26.1 cm ECHO/Echo Complete W/ Contrast Interpretation Summary The estimated ejection fraction is 35-40 %. Moderate LV systolic dysfunction Anteroapical and distal septal hypokinesia Mild aortic incompetence Mild MR Grade 1 diastolic dysfunction Contrast echo used/Definity In comparison to previous echo segmental wall motion abnormality as described i s noted Secondary to CAD/non-STEMI Ordering Physician: Lynne Tabares Referring Physician: Elis Cardenas Performed By: Christie Galan, MICHAELCS, RVT
[2023-03-12] MEDS: Levothyroxine 137 MCG Tablet PO (06:25)
[2023-03-12] MEDS: Lactated Ringers 1,000 ML 75 ML IV (06:25)
[2023-03-12 07:32] LABS: Hematocrit 38.6 % (37-47); Hemoglobin 12.6 g/dL (12.0-15.0); Mean Corp Hgb Conc 32.6 g/dL (32-36); Mean Corpuscular Hgb 29.6 pg (27.0-32.0); Mean Corpuscular Volume 90.8 fL (81-99); Mean Platelet Vol. 9.3 fl (6.2-12.0); Platelet Count 211 K/mm3 (150-450); RBC Distribution Width CV 13.2 % (11.6-14.6); Red Blood Count 4.25 M/mm3 (4.2-5.4); White Blood Count 7.2 K/mm3 (4.4-11.0)
[2023-03-12] MEDS: Atenolol 25 MG Tablet PO (08:31)
[2023-03-12] MEDS: amLODIPine 5 MG Tablet PO (08:32)
[2023-03-12] MEDS: Lisinopril 20 MG Tablet PO (08:32)
[2023-03-12] MEDS: Aspirin 81 MG TAB.CHEW PO (08:33)
[2023-03-12 08:42] LABS: ALB/GLOB Ratio 1.1 RATIO (0.9-2.4); AST(SGOT) 16 U/L (15-37); Alanine Aminotransfer ALT/SGPT 18 U/L (13-56); Albumin, Serum 3.3 g/dL (3.2-5.0); Alkaline Phosphatase 79 U/L (45-117); Anion Gap 5 (5-15); BUN 18 mg/dL (7-18); BUN/Creat Ratio 22.2 RATIO (10-20); Calcium,Total 8.8 mg/dL (8.5-10.1); Chloride 112 mmol/L (98-107); Cholesterol 132 mg/dL (200); Creatinine, Serum 0.81 mg/dL (0.55-1.02); EST Glomerular Filtration Rate 73 mL/min (>60); Est Glom Filt Rate - Afr Amer 88 mL/min (>60); Estimated Creatinine Clearance 44.54 ml/min; Glucose 103 mg/dL (74-106); High Density Lipoprotein 47 mg/dL; Potassium 3.8 mmol/L (3.5-5.1); Protein, Total 6.3 g/dL (6.4-8.2); Sodium Level 142 mmol/L (136-145); Thyroid Stim Hormone (TSH) 3.89 uIU/mL (0.358-3.74); Triglycerides 101 mg/dL; Very Low Density Lipoprotein 20 mg/dL (5-40)
--- NOTE | 2023-03-12 09:00 | PN.HOSP_ITS ---
Reason for Visit Reason for Visit: Diagnoses Non-ST elevation (NSTEMI) myocardial infarction (03/12/23) Subjective Subjective Patient is a 77-year-old lady admitted with chest pain found to have elevated troponin consistent with acute non-STEMI treatment initiated per protocol patient admitted to monitored bed for further management Objective Data Objective Data Vital Signs: Vital Signs Temp Pulse Resp BP Pulse Ox O2 Del Method 98.3 F 69 18 148/71 H 94 Room Air 03/12/23 08:24 03/12/23 08:38 03/12/23 08:38 03/12/23 08:24 03/12/23 08:24 03/12/23 08:38 Oxygen Delivery Method Room Air Weight: 80.7 kg Body Mass Index (BMI) 32.5 Intake & Output: Intake and Output for Last 24 Hours 03/10/23 03/11/23 03/12/23 23:59 23:59 23:59 Intake Total 0 / 0 Output Total 0 / 0 Balance 0 / 0 Lab / Micro Data 03/12/23 06:15 03/12/23 06:15 Labs: Laboratory Results - last 24 hr 03/12/23 00:38: WBC 7.1, RBC 4.42, Hgb 13.2, Hct 39.9, MCV 90.3, MCH 29.9, MCHC 33.1, RDW Std Deviation 44.1 H, RDW Coeff of Jennifer 13.4, Plt Count 239, MPV 9.1, Immature Gran % (Auto) 0.800, Neut % (Auto) 60.3, Lymph % (Auto) 27.0, [place] % (Auto) 8.2, Eos % (Auto) 2.3, Baso % (Auto) 1.4 H, Absolute Neuts (auto) 4.3, Absolute Lymphs (auto) 1.92, Nucleated RBC % 0, PT 12.0, INR 0.9, APTT 29.2, D- Dimer Quant (PE/DVT) 0.37, Sodium 140, Potassium 4.0, Chloride 109 H, Carbon Dioxide 23.0, Anion Gap 8, BUN 24 H, Creatinine 0.91, Estim Creat Clear Calc 39.65, Est GFR (MDRD) Af Amer 77, Est GFR (MDRD) Non-Af 64, BUN/Creatinine Ratio 26.5 H, Glucose 124 H, Calcium 8.9, Troponin I High Sens 88 H 03/12/23 02:50: Troponin I High Sens 400 H* 03/12/23 06:15: WBC 7.2, RBC 4.25, Hgb 12.6, Hct 38.6, MCV 90.8, MCH 29.6, MCHC 32.6, RDW Std Deviation 44.0 H, RDW Coeff of Jennifer 13.2, Plt Count 211, MPV 9.3, Sodium 142, Potassium 3.8, Chloride 112 H, Carbon Dioxide 25.0, Anion Gap 5, BUN 18, Creatinine 0.81, Estim Creat Clear Calc 44.54, Est GFR (MDRD) Af Amer 88, Est GFR (MDRD) Non-Af 73, BUN/Creatinine Ratio 22.2 H, Glucose 103, Calcium 8.8, Total Bilirubin 0.50, AST 16, ALT 18, Alkaline Phosphatase 79, Total Protein 6.3 L, Albumin 3.3, Globulin 3.0, Albumin/Globulin Ratio 1.1, Triglycerides 101, Cholesterol 132, LDL Cholesterol 65, VLDL Cholesterol 20, HDL Cholesterol 47, TSH 3.89 H Radiography Diagnostic Testing: Radiology Impression Chest X-Ray 03/12/23 00:23 IMPRESSION: Mild prominence of the right hilum which may represent an enlarged right pulmonary artery possible pulmonary hypertension versus lymphadenopathy. Borderline cardiac enlargement. Electronically Signed: Radha Little MD at 1:14 EST Reading Location ID and State: [facility] / [place] Tel , Service support , Physical Exam Narrative GENERAL: cooperative HEENT: Atraumatic; normocephalic EYES; Anicteric, Normal Conjunctiva NECK; supple, normal thyroid, RESPIRATORY: Diminished to auscultation CARDIOVASCULAR: Regular S1 S2, GI: soft, normoactive bowel sounds, : No Renal angle tenderness; EXTREMITIES: No edema, no clubbing, MUSCULOSKELETAL: no muscle wasting NEURO: Awake; no lateralizing signs. SKIN: No Rash PSYCH; Flat affect Assessment & Plan Assessment/Plan (1) Acute non-ST elevation myocardial infarction (NSTEMI): PLAN: Plan Patient is a 77-year-old lady admitted with chest pain found to have elevated troponin consistent with acute non-STEMI treatment initiated per protocol jesse murray admitted to monitored bed for further management 1. Acute non-STEMI ? Treatment initiated per protocol. Aspirin for management ordered 2D echo consult placed to cardiology patient kept n.p.o. for left heart catheterization with intervention if warranted 2. Hypertension - Blood pressure controlled, home medications continued with dose adjustment as needed 3. Dyslipidemia -Patient is on statin therapy, continued at home dose 4 hypothyroidism/history of thyroid cancer -Status post thyroidectomy in 1993 -Continue home levothyroxine 5. History of TIAs -Patient is on antiplatelet therapy with aspirin continued 6. Class I obesity with BMI of 32.5 ? Complicating care weight loss advised 7. History of uterine prolapse -status post hysterectomy 8. DVT prophylaxis ? Patient is fully anticoagulated Time spent in the patient's overall evaluation,decision-making process, review of diagnostic data, adjustment of management, discussion with other providers, nursing nursing and ancillary staff involved in patient's care documentation, 50 Minutes Charges/Coding Visit Charges Inpatient E&M: 40080 [facility] L3
--- NOTE | 2023-03-12 09:10 | CON.PCM.CA_ITS ---
<Statement entered by Kendal Hoffmann MD - 03/12/23 16:23> Pt seen & evaluated w/FREDY. I personally interviewed & exam the pt. I was involved in all aspects of pt's orders, interpretation of results & treatment Assessment & Plan Assessment/Plan (1) Acute non-ST elevation myocardial infarction (NSTEMI): (2) Hypertension: (3) Hyperlipidemia: PLAN: Plan * Echocardiogram is pending * Troponins trended 88/400, will undergo a diagnostic heart cath today * BP slightly high, for now will continue with current home medications. Will make adjustments if needed HPI Consult Data Date of Consult: 03/12/23 HPI Narrative HPI Narrative: ROBSON BROWNING, is a 77 F who presented to [facility] on 03/12/2023 with Chest pain that was described as vague midsternal that radiated right to left that last approx one hour. Troponins trended 88/400. She was admitted to PCU for further evaluation. She does have a history of hypertension, hyperlipidemia and hypo thyroid. Currently she does not have any chest pain/heaviness/ SOB. [facility] Medical History (Updated 03/12/23 @ 08:[address] Martin Wilkins, DO) Aphthous ulcer of mouth Arthritis Corrales's palsy Benign essential hypertension Cancer Chest pain Depression GERD (gastroesophageal reflux disease) Hearing loss, left High cholesterol History of echocardiogram History of stress test History of stroke Hyperlipidemia Hypertension Hypothyroidism Leg cramps Menieres disease Non-smoker Post-menopausal Stress incontinence Stroke/cerebrovascular accident Thyroid disease TIA (transient ischemic attack) Wears glasses Wears hearing aid Home Medications amlodipine 5 mg tablet 5 mg PO DAILY 09/22/15 [History Last Taken 05/28/22] lisinopril 20 mg tablet 20 mg PO DAILY #30 tabs 10/11/15 [Rx Last Taken 05/28/22 ] atenolol 25 mg tablet 25 mg PO DAILY 12/25/21 [History Last Taken 05/28/22] levothyroxine 175 mcg tablet 137 mcg PO DAILY 12/25/21 [History Last Taken 05/28/22] B-complex with vitamin C 1 tab PO DAILY 05/21/22 [History Last Taken Unknown] ascorbic acid (vitamin C) 500 mg tablet (Vitamin C) 500 mg PO DAILY 05/21/22 [History Last Taken Unknown] aspirin 81 mg capsule 81 mg PO DAILY 05/21/22 [History Last Taken 05/19/22] calcium carb,cit ER 600 mg-vit D3 12.5 mcg (500 unit) tablet,ext.rel (Citracal- D3 Slow Release) 2 tab PO DAILY 05/21/22 [History Last Taken Unknown] cholecalciferol (vitamin D3) 125 mcg (5,000 unit) tablet (Vitamin D3) 125 mcg PO DAILY 05/21/22 [History Last Taken Unknown] garlic 1,000 mg capsule 1,000 mg PO DAILY 05/21/22 [History Last Taken Unknown] lysine 1,000 mg tablet 1,000 mg PO DAILY 05/21/22 [History Last Taken Unknown] turmeric root extract 500 mg capsule 500 mg PO DAILY 05/21/22 [History Last Taken Unknown] zinc lozenges 15 mg 15 mg PO DAILY 05/21/22 [History Last Taken Unknown] prednisone 20 mg tablet 40 mg (2 x 20 mg) PO DAILY #8 tabs 10/21/22 [Rx Last Rusty en Unknown] atorvastatin 40 mg tablet 40 mg PO DAILY #90 tabs 02/15/23 [Rx Last Taken Unknown] citalopram 10 mg tablet 10 mg PO DAILY #30 tabs 02/16/23 [Rx Last Taken Unknown] Allergy/AdvReac Type Severity Reaction Status Date / Time Sulfa (Sulfonamide Allergy Intermediate Rash Verified 03/12/23 00:21 Antibiotics) pepper (genus Capsicum) Allergy Swelling Verified 03/12/23 00:21 adhesive tape AdvReac Intermediate Rash Verified 03/12/23 00:21 Penicillins AdvReac Unknown Rash Verified 03/12/23 00:21 Family History Mother Heart disease Surgical History H/O breast biopsy H/O dilation and curettage H/O hernia repair H/O tubal ligation History of thyroidectomy Hx of colonoscopy Hx of surgical procedure Status post hysterectomy with oophorectomy Social History Smoking Status: Never smoker alcohol intake: never substance use type: does not use caffeine: Yes seatbelt use: always do you feel safe at home: Yes additional social history: - [place] ROS Constitutional Constitutional: Denies change in weight, chills, fatigue or lethargy Eyes Eyes: Denies acute decrease in peripheral vision, blurry vision or change in vision ENT HEENT: Denies dizziness, epistaxis, headache(s), tinnitus or vertigo Cardiovascular Cardiovascular: Reports as per HPI; Denies claudication, dyspnea at rest, dyspnea on exertion, edema, irregular heart rhythm, lightheadedness, orthopnea or orthostatic symptoms Respiratory/Chest Respiratory/Chest: Denies cough, tachypnea or wheezing Gastrointestinal Gastrointestinal: Denies abdominal pain, bloating, diarrhea or heartburn Genitourinary Genitourinary: Denies hematuria Musculoskeletal Musculoskeletal: Denies myalgias, numbness or tingling Neurologic Neurologic: Denies abnormal gait, abnormal speech, memory loss, paresthesias or weakness Physical Exam Const alert, oriented x3, no apparent distress and healthy appearing HEENT normocephalic, head/scalp atraumatic, hearing grossly normal bilaterally, external ears normal, external nose normal and moist oral mucous membranes Eyes PERRL, EOMs intact bilaterally, conjunctivae normal and no scleral icterus Neck no lymphadenopathy, supple and no JVD Cardio regular rate, regular rhythm, S1 normal heart sound, S2 normal heart sound, no murmurs, no rub, no gallops, no clicks, no JVD and peripheral pulses 2+ throughout GI normal to inspection, nondistended, normoactive bowel sounds, soft to palpation, non-tender and non-distended Extremity normal to inspection, normal capillary refill, no clubbing, cyanosis or edema and no pedal edema Neuro oriented x3, CN's II-XII intact bilaterally, moves all extremities and no focal motor deficits Psych cooperative and affect normal Risk Stratification Risk Stratification Applicable: Yes Age >/= 65: Yes >/= 3 CAD Risk Factors (HTN, HLD, DM, family hx of CAD, or current smoker): Yes Aspirin Use in the Past 7 Days: Yes Severe Angina (>/= episodes in 24 hours): Yes EKG ST Changes >/= 0.5mm: No Positive Cardiac Marker: Yes NASIM Risk Stratification Score: 5 NASIM % Risk: 25% Risk Charges/Coding Visit Charges Office Visits / Consults: 94975 IP Consult L4 Objective Data Vital Signs: Vital Signs Temp Pulse Resp BP Pulse Ox O2 Del Method 98.3 F 69 18 148/71 H 94 Room Air 03/12/23 08:24 03/12/23 08:38 03/12/23 08:38 03/12/23 08:24 03/12/23 08:24 03/12/23 08:38 Oxygen Delivery Method Room Air Weight: 177 lb 14.609 oz Body Mass Index (BMI) 32.5 Intake & Output: Intake and Output for Last 24 Hours 03/10/23 03/11/23 03/12/23 23:59 23:59 23:59 Intake Total 0 / 0 Output Total 0 / 0 Balance 0 / 0 Lab / Micro Data 03/12/23 06:15 03/12/23 06:15 Labs: Laboratory Results - last 24 hr 03/12/23 00:38: WBC 7.1, RBC 4.42, Hgb 13.2, Hct 39.9, MCV 90.3, MCH 29.9, MCHC 33.1, RDW Std Deviation 44.1 H, RDW Coeff of Jennifer 13.4, Plt Count 239, MPV 9.1, Immature Gran % (Auto) 0.800, Neut % (Auto) 60.3, Lymph % (Auto) 27.0, [place] % (Auto) 8.2, Eos % (Auto) 2.3, Baso % (Auto) 1.4 H, Absolute Neuts (auto) 4.3, Absolute Lymphs (auto) 1.92, Nucleated RBC % 0, PT 12.0, INR 0.9, APTT 29.2, D- Dimer Quant (PE/DVT) 0.37, Sodium 140, Potassium 4.0, Chloride 109 H, Carbon Dioxide 23.0, Anion Gap 8, BUN 24 H, Creatinine 0.91, Estim Creat Clear Calc 39.65, Est GFR (MDRD) Af Amer 77, Est GFR (MDRD) Non-Af 64, BUN/Creatinine Ratio 26.5 H, Glucose 124 H, Calcium 8.9, Troponin I High Sens 88 H 03/12/23 02:50: Troponin I High Sens 400 H* 03/12/23 06:15: WBC 7.2, RBC 4.25, Hgb 12.6, Hct 38.6, MCV 90.8, MCH 29.6, MCHC 32.6, RDW Std Deviation 44.0 H, RDW Coeff of Jennifer 13.2, Plt Count 211, MPV 9.3, Sodium 142, Potassium 3.8, Chloride 112 H, Carbon Dioxide 25.0, Anion Gap 5, BUN 18, Creatinine 0.81, Estim Creat Clear Calc 44.54, Est GFR (MDRD) Af Amer 88, Est GFR (MDRD) Non-Af 73, BUN/Creatinine Ratio 22.2 H, Glucose 103, Calcium 8.8, Total Bilirubin 0.50, AST 16, ALT 18, Alkaline Phosphatase 79, Total Protein 6.3 L, Albumin 3.3, Globulin 3.0, Albumin/Globulin Ratio 1.1, Triglycerides 101, Cholesterol 132, LDL Cholesterol 65, VLDL Cholesterol 20, HDL Cholesterol 47, TSH 3.89 H Cardiology Labs/Tests 03/12/23 00:38: WBC 7.1, RBC 4.42, Hgb 13.2, Hct 39.9, MCV 90.3, MCH 29.9, MCHC 33.1, Plt Count 239, MPV 9.1, Immature Gran % (Auto) 0.800, Neut % (Auto) 60.3, Lymph % (Auto) 27.0, [place] % (Auto) 8.2, Eos % (Auto) 2.3, Baso % (Auto) 1.4 H, Absolute Neuts (auto) 4.3, Nucleated RBC % 0, PT 12.0, INR 0.9, APTT 29.2, D- Dimer Quant (PE/DVT) 0.37, Sodium 140, Potassium 4.0, Chloride 109 H, Carbon Dioxide 23.0, Anion Gap 8, BUN 24 H, Creatinine 0.91, Est GFR (MDRD) Af Amer 77, Est GFR (MDRD) Non-Af 64, BUN/Creatinine Ratio 26.5 H, Glucose 124 H, Calcium 8.9 03/12/23 06:15: WBC 7.2, RBC 4.25, Hgb 12.6, Hct 38.6, MCV 90.8, MCH 29.6, MCHC 32.6, Plt Count 211, MPV 9.3, Sodium 142, Potassium 3.8, Chloride 112 H, Carbon Dioxide 25.0, Anion Gap 5, BUN 18, Creatinine 0.81, Est GFR (MDRD) Af Amer 88, Est GFR (MDRD) Non-Af 73, BUN/Creatinine Ratio 22.2 H, Glucose 103, Calcium 8.8, Total Bilirubin 0.50, Triglycerides 101, Cholesterol 132, LDL Cholesterol 65, VLDL Cholesterol 20, HDL Cholesterol 47 Rhythm: EKG: ECHO: Stress Test: Cardiac Cath: PCI: CT Surgery: Holter monitor: EPS: PPM: CXR: Chest CT Scan: Radiography Diagnostic Testing: Radiology Impression Chest X-Ray 03/12/23 00:23 IMPRESSION: Mild prominence of the right hilum which may represent an enlarged right pulmonary artery possible pulmonary hypertension versus lymphadenopathy. Borderline cardiac enlargement. Electronically Signed: Radha Little MD at 1:14 EST ,
--- NOTE | 2023-03-12 12:26 | PCIREPORT_ITS ---
PCI Cardiac Cath Report PCI Report: Procedure performed; 1. Moderate sedation 2. Selective left coronary angiography 3. Selective right coronary angiography 4. Successful PCI of the culprit which is 80% stenosis of the mid LAD which is calcified with thrombus Predilated with 2.5 x 15 mm balloon followed by placement of drug-eluting stent [place] LIZETH 3 x 22 mm Postdilated with 3 x 15 mm NC balloon/Euphora Rx With reduction of stenosis to 0% and maintenance of NASIM-3 flow 5. Placement of TR band to close the right radial artery arteriotomy site. Consent; Risk and benefits of the procedure explained in detail to the patient elected to proceed informed consent obtained. Preprocedure diagnosis this patient is 77-year-old presented to the hospital complaining of symptoms of chest pain Admitted through the ED department here at [facility] Evidently her symptom was ongoing for the last 2 days Medical problem include history of her hypertension, hyperlipidemia history of Corrales's palsy, GERD Patient was treated with medical therapy with heparin aspirin echocardiogram showed reduced LV systolic function EF around 40-45% with apical hypokinesia in comparison to the rest of the myocardium Based on the clinical presentation clinical diagnosis of CAD non-ST elevation AK with abnormal echo and elevated cardiac biomarkers patient was brought to the Extruder Operator Vertical Access; Right radial artery approach with a cocktail of verapamil, heparin as well as nitroglycerin given through the sheath. Diagnostic and interventional catheter used 1. 5 [place] JL 3.5 2. 5 [place] JR4 3. 5 [place] JL 3.5 guide catheter 0.014 180 cm run-through extra floppy straight guidewire 2.5 x 15 mm emerge MR balloon 4. 3 x 22 mm Dahinda frontiers LIZETH 5. 3 x 15 NC Euphora Rx balloon Medication and anticoagulation use in the Extruder Operator Vertical Heparin with ACT level acceptable Brilinta was given in the Extruder Operator Vertical and 80 mg Also patient was given aspirin in the medical floor. Procedure in detail; Patient brought to the Extruder Operator Vertical in fasting state Right radial artery area prepped and draped in the usual sterile fashion Access obtained from the right radial artery with a 6 [place] sheath placed in the right radial artery we will proceed with a diagnostic catheter 5 [place] JL 3.5 advanced Mohamudingworth cannulated the left main without difficulty multiple views of left coronary system were obtained following this catheter exchanged fo r 5 [place] JR4 and selective angiographic view of the RCA obtained. The culprit identified as a thrombus calcified lesion involving the mid LAD therefore we proceed with interventional plan We used 6 [place] JL 3.5 guide catheter advanced to the ascending aorta and cannulated the left main without difficulty. Then we proceeded with crossing the lesion using run-through wire able to cross the lesion and then followed by predilatation followed by placement of drug- eluting stent and postdilated. And achieve an excellent result patient had mild symptoms of chest pain and started on nitroglycerin drip patient Hemodynamically she been stable and there were no significant change in the EKG. Coronary angiography 1. Left main is calcified with extension of calcification into the LAD, ramus intermedius and the left circumflex Angiographically the left main and distal had nonobstructive sclerosis of around 20%. 2. Left anterior descending artery is large vessel is a prominent very diagonal branch and abundant septal branches The LAD is calcified proximal to mid. With 80% stenosis in the mid LAD with a thrombus The rest of the LAD is a large vessel with abundant septal branches and reach all the way to the apex We proceed with intervention in the LAD and successfully dilate the lesion and placed a drug-eluting stent to maintain a NASIM-3 flow 3. Ramus intermedius small vessel angiographically no significant atherosclerosis 4. Left circumflex artery proximally had diffuse 75% stenosis And at the mid left circumflex there is a lesion of around 70% prior to the bifurcation. Collaterals were noted from the left to the right side 5. RCA had diffuse atherosclerosis of proximal mid and high-grade lesion involving the distal RCA. Conclusion recommendations; 1. This patient presented with non-ST elevation AK with echocardiographic finding consistent with apical hypokinesia treated with medical therapy And was brought in as emergency to the Extruder Operator Vertical and identified the culprit lesion and successfully place a drug-eluting stent and patency of the LAD which is a calcified vessel. 2. Patient to continue on dual antiplatelet therapy/DAPT Brilinta 90 mg twice daily in addition to low-dose aspirin 3. Patient will be scheduled for cardiac rehab program here at [facility] phase 1 4. Patient will need elective PCI of the left circumflex artery The right coronary artery is a small with diffuse atherosclerosis and probably at this point we will treat that with medical therapy. Patient will be monitored in the intensive care unit. Other medication will include beta-thom, high-dose statin, MIKA inhibitor. No complication in the Extruder Operator Vertical Kendal Hoffmann MD,FACC,[facility]
--- NOTE | 2023-03-12 13:15 | CASEMGMT ---
RN TERESA Face to Face with patient for initial transition planning/care coordination assessment. RN CM introduced self and role at [facility]. Patient lying in bed, alert and oriented. Patient willing to participate in assessment and is able to answer all questions appropriately. Care providers, pharmacy, and demographics verified. Patient wishes to discharge home, denies need for home health at this time. Patient states she has no further needs or concerns at this time. CM to follow for discharge planning needs that may arise. PCP: Ronald Specialists: Nico gelatin dynamite packing operator [facility] Prescription Benefit: yes Living Will/HPOA: yes, Boy Huber LNOK: Living Arrangements: Patient lives with in a 2 story home with bed and bath on first floor, 4 steps and railing to enter the home. Patient states she is independent at home. Transportation: self, DME/HHC: Patient has cane and walker at home. No previous HHC or SNF Disposition Plan: Patient to discharge home with family support and follow-up plans in place. Ewelina BRENNAN, RN, CM
--- NOTE | 2023-03-12 13:25 | CRPHASE1 ---
Patient Communication Patient Information Former Patient:: Phase I PHII Cardiac Rehab Discussed with Patient:: Yes Guide to Cardiac Rehab Given to Patient:: Yes Cardiac Rehab Facility Choice List Given to Patient:: Yes Communication to Cardiac Rehab Personal Injury Law Specialist:: Kendal Hoffmann Sessions:: 36 sessions - 3 days/wk, 12 weeks Cardiac Rehabilitation Info Program Information Cardiac Rehabilitation Program Information: Cardiac Rehab The cardiac rehab team at [facility] consists of highly skilled exercise physiologists, nurses, respiratory therapists and physicians working together with you. Our purpose is to help you have a full recovery and achieve the goals you set for yourself. Over the years many of our patients have returned to activities they assumed they would never do again! We can help restore your confidence and motivation to make lifestyle changes that can have a significant impact on your health and quality of life! We can help answer questions and concerns you may have about exercise, lifestyle, medications, diet, stress and anxiety which are common following a hospitalization. WE monitor ECG and vital signs during exercise and discuss your progress with you and report to your physician(s). Cardiac Rehab is proven to help reduce readmissions, improve functional capacity and lower recurrence of problems with your heart. Our Cardiac Rehab program is Certified by the [place] [employer]-Vascular and Pulmonary [employer] (AACVPR) and Accredited by the [place] [employer] through our [facility]. You can contact us at . We invite you to call us with your questions or to get started in our program. If you have other questions or concerns be sure to ask your physician/provider during your follow-up visit. WE look forward to seeing you!
--- NOTE | 2023-03-12 13:28 | CRPH1.INSTRU ---
General Education Discussed with Patient CAD and cardiac anatomy and function:: Patient communicates acknowledgment Explanation of diagnoses and procedures:: Patient communicates acknowledgment Sign/Symptoms of MD:: Patient communicates acknowledgment Antiplatelet therapy: Patient communicates acknowledgment Proper use of NTG-SL: Patient communicates acknowledgment Emergency procedures and activation of EMS: Patient communicates acknowledgment Compliance of all prescribed medications: Patient communicates acknowledgment Smoking Risk Factors Patient Nicotine/Smoking Risk Factors Are:: Non-smoker Recommendations Recommendations Include:: Previous smoker; encourage continued cessation Response Code Nicotine/Smoking Response Code:: Patient communicates acknowledgment Dyslipidemia Risk Factors Patient Dyslipidemia Risk Factors Are:: Total Cholesterol, Triglycerides and LDL Recommendations Recommendations Include:: Lipid profile not available Response Code Dyslipidemia Response Code:: Patient communicates acknowledgment Overweight/Obesity Risk Factors Patient Overweight/Obesity Risk Factors Are:: BMI Normal [18-25 & < 65 years old], BMI Normal [24-29 & > 65 years old], Overweight = 26-29 and Obesity - > or = 30 Recommendations Recommendations Include:: Weight loss of 5-10%, Reduced calorie diet and Exercise 5-7 times/week Response Code Overweight/Obesity:: Patient communicates acknowledgment Hypertension Recommendations Recommendations Include:: Maintain BP <130/85, BP <130/80 if diabetic, DASH dietary guidelines, Decrease/maintain normal body weight and Moderation of ETOH Response Code Hypertension:: Patient communicates acknowledgment Heart Disease Risk Factors Patient Heart Disease Risk Factors Are:: Family history of heart disease < 65 years old Recommendations Recommendations Include:: Educated family members of their risk and Educated family members of importance of prevention of heart disease Response Code Heart Disease Response Code:: Patient communicates acknowledgment Diabetes Recommendations Recommendations Include:: Maintain fasting blood sugars 70-110 md/dL, Maintain HgbA1c of 6% or less, Monitor blood sugar as prescribed, Diabetic dietary guidelines and Decrease/maintain body weight Response Code Diabetes:: Patient communicates acknowledgment Metabolic Syndrome Risk Factors Patient Metabolic Syndrome Risk Factors Are [3 of 5]:: Waist circumference > 35 [female] or 40 [male] and Hypertension Recommendations Recommendations Include:: Reinforce compliance to risk factor modifications and Encouraged follow-up with Primary Care Physician Response Code Metabolic Syndrome Response Code:: Patient communicates acknowledgment Sedentary Risk Factors Patient Sedentary Risk Factors Are:: Lack of regular exercise Recommendations Recommendations Include:: Aerobic exercise 5-7 times/week for 20-30 minutes continuously, Benefits of regular exercise, Discussed home walking program and Monitored Outpatient Cardiac Rehab Response Code Sedentary Response Code:: Patient communicates acknowledgment Stress Risk Factors Patient Stress Risk Factors Are:: Patient denies stress as a risk factor Recommendations Recommendations Include:: Identification of stressors, and assessment of coping skills and Stress management techniques Response Code Stress Response Code:: Patient communicates acknowledgment
[2023-03-12] MEDS: Citalopram 10 MG Tablet PO (14:11)
[2023-03-12] MEDS: Cholecalciferol (Vit D3) 125 MCG CAPSULE (5,000 UNITS) PO (14:11)
[2023-03-12] MEDS: Acetaminophen 325 MG Tablet 650 MG PO (14:11)
--- NOTE | 2023-03-12 14:12 | NURSING ---
03/12/23@1200- PT RETURNED FROM CHEFS WITH NITRO GTT RUNNING AT 5MCG DUE TO C/O CHEST PAIN POST HEART CATH. THIS NURSE TRIED SEVERAL TIMES TO OBTAIN AN ORDER FROM DR. EDGE. DR. EDGE ORDERED NITRO GTT TO BE DISCONTINUED AT 1358.
--- NOTE | 2023-03-12 14:15 | NURSING ---
03/12/23@1315- ANOTHER 2ML OF AIR REMOVED FROM RIGHT RADIAL HEART CATH SITE TR BAND, TOTALLING 8 ML OF AIR REMOVED. INSTANT MINIMAL BLEEDING WAS NOTED WITH A SMALL HEMATOMA FORMING AT THE PUNCTURE SITE. AT THIS TIME 13 ML OF AIR WAS RE-INSTILLED INTO THE TR BAND. WILL CONTINUE TO MONITOR AND WILL BEING TO REMOVE 2 ML OF AIR AT A TIME STARTING AT 1400 TO GIVE PT TIME TO STOP BLEEDING. 03/12/23@1400- BRUISING AT SITE NOTED. HEMATOMA OR BLEEDING NOT PRESENT WITH TR BAND IN PLACE. PULSE PRESENT. SKIN WARM. NO APPARENT SIGNS OF ADVERSE REACTION. PT C/O HAND FEELING NUMB AT THIS TIME, WILL BEGIN TO REMOVE AIR AGAIN NOW WITH CONTINUAL MONITORING. VSS.
[2023-03-12] MEDS: 0.9% Normal Saline (1000mL) 1,000 ML 75 ML IV (14:16)
[2023-03-12 15:11] LABS: ACT Activated Clotting Time 311 sec (74-137)
--- NOTE | 2023-03-12 15:28 | NURSING ---
03/12/23@1515- LAST 2 ML OF AIR REMOVED FROM TR BAND. PT INSTANTLY STARTED BLEEDING FROM CATH SITE. 13 ML OF AIR RE-INSTILLED. WILL ATTEMPT TO REMOVE 2 ML OF AIR AT 1600. WILL CONTINUE TO MONITOR. VSS.
[2023-03-12] MEDS: 0.9% Saline Lock 10 ML Syringe IV (19:49)
[2023-03-12] MEDS: Ondansetron 4 MG/2 ML Vial IV (19:49)
[2023-03-13 02:23] VITALS: BMI 32.7
[2023-03-13 03:15] VITALS: BP 144/60; PULSE 67; RESP 16; TEMP 36.3; O2SAT 96
[2023-03-13] MEDS: Levothyroxine 137 MCG Tablet PO (06:32)
[2023-03-13 08:04] VITALS: O2SAT 95
[2023-03-13 08:18] LABS: Hematocrit 37.8 % (37-47); Hemoglobin 13.1 g/dL (12.0-15.0); Mean Corp Hgb Conc 34.7 g/dL (32-36); Mean Corpuscular Hgb 31.3 pg (27.0-32.0); Mean Corpuscular Volume 90.2 fL (81-99); Platelet Count 205 K/mm3 (150-450); RBC Distribution Width CV 13.4 % (11.6-14.6); Red Blood Count 4.19 M/mm3 (4.2-5.4); White Blood Count 7.4 K/mm3 (4.4-11.0)
[2023-03-13 08:52] LABS: AST(SGOT) 46 U/L (15-37); Alanine Aminotransfer ALT/SGPT 23 U/L (13-56); Albumin, Serum 3.2 g/dL (3.2-5.0); Alkaline Phosphatase 81 U/L (45-117); Anion Gap 6 (5-15); BUN 11 mg/dL (7-18); BUN/Creat Ratio 13.8 RATIO (10-20); Calcium,Total 8.3 mg/dL (8.5-10.1); Chloride 112 mmol/L (98-107); EST Glomerular Filtration Rate 74 mL/min (>60); Est Glom Filt Rate - Afr Amer 89 mL/min (>60); Globulin 3.1 g/dL (2.2-4.2); Glucose 98 mg/dL (74-106); Potassium 3.7 mmol/L (3.5-5.1); Protein, Total 6.3 g/dL (6.4-8.2); Sodium Level 139 mmol/L (136-145)
--- NOTE | 2023-03-13 09:23 | PN.HOSP_ITS ---
Reason for Visit Reason for Visit: Diagnoses Hyperlipidemia, unspecified (03/12/23) Essential (primary) hypertension (03/12/23) Non-ST elevation (NSTEMI) myocardial infarction (03/12/23) Subjective Subjective Patient underwent successful PCI of the culprit which is 80% stenosis of the mid LAD which is calcified with thrombus Predilated with 2.5 x 15 mm balloon followed by placement of drug-eluting stent [place] Objective Data Objective Data Vital Signs: Vital Signs Temp Pulse Resp BP Pulse Ox O2 Del Method 97.4 F L 67 16 144/60 H 95 Room Air 03/13/23 03:15 03/13/23 03:15 03/13/23 03:15 03/13/23 03:15 03/13/23 08:04 03/13/23 08:04 Oxygen Delivery Method Room Air Weight: 81.1 kg Body Mass Index (BMI) 32.7 Intake & Output: Intake and Output for Last 24 Hours 03/11/23 03/12/23 03/13/23 23:59 23:59 23:59 Intake Total 1127.25 / 1127.25 1000 / 1000 Output Total 900 / 900 Balance 227.25 / 227.25 1000 / 1000 Lab / Micro Data 03/13/23 07:28 03/13/23 07:28 Labs: Laboratory Results - last 24 hr 03/12/23 11:50: Activated Clotting Time 311 H 03/13/23 07:28: WBC 7.4, RBC 4.19 L, Hgb 13.1, Hct 37.8, MCV 90.2, MCH 31.3, MCHC 34.7 D, RDW Std Deviation 44.0 H, RDW Coeff of Jennifer 13.4, Plt Count 205, MPV 9.0, Sodium 139, Potassium 3.7, Chloride 112 H, Carbon Dioxide 21.0, Anion Gap 6, BUN 11, Creatinine 0.80, Estim Creat Clear Calc 45.10, Est GFR (MDRD) Af Amer 89, Est GFR (MDRD) Non-Af 74, BUN/Creatinine Ratio 13.8, Glucose 98, Calcium 8.3 L, Total Bilirubin 0.50, AST 46 H, ALT 23, Alkaline Phosphatase 81, Total Protein 6.3 L, Albumin 3.2, Globulin 3.1, Albumin/Globulin Ratio 1.0 Radiography Diagnostic Testing: Radiology Impression Echocardiogram 03/12/23 05:55 Interpretation Summary The estimated ejection fraction is 35-40 %. Moderate LV systolic dysfunction Anteroapical and distal septal hypokinesia Mild aortic incompetence Mild MR Grade 1 diastolic dysfunction Contrast echo used/Definity In comparison to previous echo segmental wall motion abnormality as described is noted Secondary to CAD/non-STEMI Ordering Physician: Lynne Tabares Referring Physician: Elis Cardenas Performed By: Christie Galan, DONNIE, RVT Physical Exam Narrative GENERAL: cooperative HEENT: Atraumatic; normocephalic EYES; Anicteric, Normal Conjunctiva NECK; supple, normal thyroid, RESPIRATORY: Diminished to auscultation CARDIOVASCULAR: Regular S1 S2, GI: soft, normoactive bowel sounds, : No Renal angle tenderness; EXTREMITIES: No edema, no clubbing, MUSCULOSKELETAL: no muscle wasting NEURO: Awake; no lateralizing signs. SKIN: No Rash PSYCH; Flat affect Assessment & Plan Assessment/Plan (1) Acute non-ST elevation myocardial infarction (NSTEMI): PLAN: Plan Patient is a 77-year-old lady admitted with chest pain found to have elevated troponin consistent with acute non-STEMI treatment initiated per protocol patient admitted to monitored bed for further management 1. Acute non-STEMI ? Treatment initiated per protocol. Aspirin for management ordered 2D echo consult placed to cardiology patient kept n.p.o. for left heart catheterization with intervention if warranted ? 03/13/2023;Patient underwent successful PCI of the culprit which is 80% stenosis of the mid LAD which is calcified with thrombus Predilated with 2.5 x 15 mm balloon followed by placement of drug-eluting stent [place] 2. Hypertension - Blood pressure controlled, home medications continued with dose adjustment as needed 3. Dyslipidemia -Patient is on statin therapy, continued at home dose 4 hypothyroidism/history of thyroid cancer -Status post thyroidectomy in 1993 -Continue home levothyroxine 5. History of TIAs -Patient is on antiplatelet therapy with aspirin continued 6. Class I obesity with BMI of 32.5 ? Complicating care weight loss advised 7. History of uterine prolapse -status post hysterectomy 8. DVT prophylaxis ? Patient is fully anticoagulated Time spent in the patient's overall evaluation,decision-making process, review of diagnostic data, adjustment of management, discussion with other providers, nursing nursing and ancillary staff involved in patient's care documentation, 40 Minutes Charges/Coding Visit Charges Inpatient E&M: 28244 Subs Hosp L2
--- NOTE | 2023-03-13 09:31 | DS.PCM_ITS ---
Providers Date of Admission: 03/12/23 Primary Care Physician: Dr. Elis Cardenas, DO Consultations 03/12/23 05:26 Consult: Cardiology Routine Consulting Provider: Kendal Hoffmann Reason for Consult: Chest Pain EMERGENT Consult: No MD Notified: Yes Date Notified: 03/12/23 Time Notified: 04:26 Method of Notification: ED Physician Initiated Reason For Visit: NSTEMI Diagnosis Discharge Diagnosis (1) Acute non-ST elevation myocardial infarction (NSTEMI): Status: Acute Code(s): I21.4 - Non-ST elevation (NSTEMI) myocardial infarction Plan Patient is a 77-year-old lady admitted with chest pain found to have elevated troponin consistent with acute non-STEMI treatment initiated per protocol patient admitted to monitored bed for further management 1. Acute non-STEMI ? Treatment initiated per protocol. Aspirin for management ordered 2D echo consult placed to cardiology patient kept n.p.o. for left heart catheterization with intervention if warranted ? 03/13/2023;Patient underwent successful PCI of the culprit which is 80% stenosis of the mid LAD which is calcified with thrombus Predilated with 2.5 x 15 mm balloon followed by placement of drug-eluting stent [place]. Patient was discharged home with guideline directed medical therapy. Echo demonstrated EF of 35 to 40% 2. Hypertension - Blood pressure controlled, home medications continued with dose adjustment as needed 3. Dyslipidemia -Patient is on statin therapy, continued at home dose 4 hypothyroidism/history of thyroid cancer -Status post thyroidectomy in 1993 -Continue home levothyroxine 5. History of TIAs -Patient is on antiplatelet therapy with aspirin continued 6. Class I obesity with BMI of 32.5 ? Complicating care weight loss advised 7. History of uterine prolapse -status post hysterectomy 8. DVT prophylaxis ? Patient is fully anticoagulated Time spent in the patient's overall evaluation,decision-making process, review of diagnostic data, adjustment of management, discussion with other providers, nursing nursing and ancillary staff involved in patient's care documentation, 40 Minutes Medications at Discharge Home Medications amlodipine 5 mg tablet 5 mg PO DAILY 09/22/15 lisinopril 20 mg tablet 20 mg PO DAILY #30 tabs 10/11/15 atenolol 25 mg tablet 25 mg PO DAILY 12/25/21 levothyroxine 175 mcg tablet 137 mcg PO DAILY 12/25/21 B-complex with vitamin C 1 tab PO DAILY 05/21/22 ascorbic acid (vitamin C) 500 mg tablet (Vitamin C) 500 mg PO DAILY 05/21/22 aspirin 81 mg capsule 81 mg PO DAILY 05/21/22 calcium carb,cit ER 600 mg-vit D3 12.5 mcg (500 unit) tablet,ext.rel (Citracal- D3 Slow Release) 2 tab PO DAILY 05/21/22 cholecalciferol (vitamin D3) 125 mcg (5,000 unit) tablet (Vitamin D3) 125 mcg PO DAILY 05/21/22 garlic 1,000 mg capsule 1,000 mg PO DAILY 05/21/22 lysine 1,000 mg tablet 1,000 mg PO DAILY 05/21/22 turmeric root extract 500 mg capsule 500 mg PO DAILY 05/21/22 zinc lozenges 15 mg 15 mg PO DAILY 05/21/22 atorvastatin 40 mg tablet 40 mg PO DAILY #90 tabs 02/15/23 citalopram 10 mg tablet 10 mg PO DAILY #30 tabs 02/16/23 aspirin 81 mg tablet,delayed release 81 mg PO DAILY@0800 #90 tabs 03/13/23 lisinopril 2.5 mg tablet 2.5 mg PO DAILY #90 tabs 03/13/23 ticagrelor 90 mg tablet (Brilinta) 90 mg PO BID #180 tabs 03/13/23 Hospital Course Procedures 2-D Echocardiogram and Cardiac catheterization Summary of Care Provided Minutes Spent on Discharge: 40 Physical Exam Narrative GENERAL: cooperative HEENT: Atraumatic; normocephalic EYES; Anicteric, Normal Conjunctiva NECK; supple, normal thyroid, RESPIRATORY: Diminished to auscultation CARDIOVASCULAR: Regular S1 S2, GI: soft, normoactive bowel sounds, : No Renal angle tenderness; EXTREMITIES: No edema, no clubbing, MUSCULOSKELETAL: no muscle wasting NEURO: Awake; no lateralizing signs. SKIN: No Rash PSYCH; Flat affect Weight / BMI Weight Weight: 81.1 kg Body Mass Index (BMI) 32.7 ABG / Lab / Microbiology Data 03/13/23 07:28 03/13/23 07:28 Laboratory: Laboratory Results - last 24 hr 03/12/23 11:50: Activated Clotting Time 311 H 03/13/23 07:28: WBC 7.4, RBC 4.19 L, Hgb 13.1, Hct 37.8, MCV 90.2, MCH 31.3, MCHC 34.7 D, RDW Std Deviation 44.0 H, RDW Coeff of Jennifer 13.4, Plt Count 205, MPV 9.0, Sodium 139, Potassium 3.7, Chloride 112 H, Carbon Dioxide 21.0, Anion Gap 6, BUN 11, Creatinine 0.80, Estim Creat Clear Calc 45.10, Est GFR (MDRD) Af Amer 89, Est GFR (MDRD) Non-Af 74, BUN/Creatinine Ratio 13.8, Glucose 98, George cium 8.3 L, Total Bilirubin 0.50, AST 46 H, ALT 23, Alkaline Phosphatase 81, Total Protein 6.3 L, Albumin 3.2, Globulin 3.1, Albumin/Globulin Ratio 1.0 Radiography Diagnostic Testing: Radiology Impression Echocardiogram 03/12/23 05:55 Interpretation Summary The estimated ejection fraction is 35-40 %. Moderate LV systolic dysfunction Anteroapical and distal septal hypokinesia Mild aortic incompetence Mild MR Grade 1 diastolic dysfunction Contrast echo used/Definity In comparison to previous echo segmental wall motion abnormality as described is noted Secondary to CAD/non-STEMI Ordering Physician: Lynne Tabares Referring Physician: Elis Cardenas Performed By: Christie Galan, DONNIE, RVT D/C Instructions Discharge Diet: Low fat / Low cholesterol Discharge Activity: Return to Normal Activity Call your doctor if you observe: Fever of 101 or Higher, Shortness of breath, Fainting spells and Chest pain Meaningful Use Info Meaningful Use Diagnoses (Choose all that apply): AMI AMI/Post PCI/Angioplasty Aspirin given w/in 24hrs of arrival?: Yes ASA at discharge?: Yes Antiplatelet Therapy at Discharge:: Yes Statins at discharge?: Yes Ayden/ARB at discharge?: Yes Beta Becca at discharge?: Yes Done w/ Acute [place] measure.: Yes Documented LVEF (%): 40 Discharge Plan Admission Admit Date/Time: 03/12/23 04:24 Attending Provider: Alfonso Anderson Primary Care Provider: Elis Cardenas Consulting Providers: Kendal Hoffmann; Lynne Tabares Discharge Orders/Prescriptions Prescriptions: New aspirin 81 mg Tablet,Delayed Release (Dr/Ec) 81 mg PO DAILY@0800 Qty: 90 0RF Brilinta 90 mg Tablet 90 mg PO BID Qty: 180 0RF lisinopril 2.5 mg tablet 2.5 mg PO DAILY Qty: 90 0RF Continued atorvastatin 40 mg tablet 40 mg PO DAILY Qty: 90 1RF citalopram 10 mg tablet 10 mg PO DAILY Qty: 30 5RF levothyroxine 175 mcg tablet 137 mcg PO DAILY atenolol 25 mg tablet 25 mg PO DAILY Patient Comments: heart/blood pressure amlodipine 5 MG tablet 5 mg PO DAILY Patient Comments: blood pressure lisinopril 20 MG tablet 20 mg PO DAILY Qty: 30 0RF Patient Comments: BLOOD PRESSURE lysine 1,000 mg Tablet 1,000 mg PO DAILY Hold Instructions: NOLONGER TAKING garlic 1,000 mg Capsule 1,000 mg PO DAILY Hold Instructions: NO LONGER TAKING ascorbic acid (vitamin C) [Vitamin C] 500 mg Tablet 500 mg PO DAILY zinc lozenges 15 mg Lozenge 15 mg PO DAILY B-complex with vitamin C Tablet 1 tab PO DAILY cholecalciferol (vitamin D3) [Vitamin D3] 125 mcg (5,000 unit) Tablet 125 mcg PO DAILY Patient Comments: PT TAKES 2 PILLS DAILY turmeric root extract 500 mg Capsule 500 mg PO DAILY calcium carb and citrate-vitD3 [Citracal-D3 Slow Release] 600 mg-12.5 mcg (500 unit) Tablet Extended Release 2 tab PO DAILY aspirin 81 mg Capsule 81 mg PO DAILY Discontinued prednisone 20 mg tablet 40 mg PO DAILY Qty: 8 0RF Other Ambulatory Orders: Phase II, Outpatient Cardiac Rehab (Routine) Location: None Selected Ordered By: Dr. Alfonso Anderson Referrals / Follow Up: Elis Cardenas DO [Primary Care Provider] - Disposition Disposition (needs filled in before D/C Order can be placed): Home, Self Care Charges/Coding Visit Charges Inpatient E&M: 25543 Disch Hosp >30min
[2023-03-13 09:37] VITALS: BP 118/57; PULSE 66; RESP 12; TEMP 36.4; O2SAT 96
[2023-03-13] MEDS: Atenolol 25 MG Tablet PO (09:42)
[2023-03-13] MEDS: amLODIPine 5 MG Tablet PO (09:42)
[2023-03-13] MEDS: Cholecalciferol (Vit D3) 125 MCG CAPSULE (5,000 UNITS) PO (09:43)
[2023-03-13] MEDS: Aspirin E.C. 81 MG Tablet PO (09:43)
[2023-03-13] MEDS: Citalopram 10 MG Tablet PO (09:43)
[2023-03-13] MEDS: Lisinopril 20 MG Tablet PO (09:43)
--- NOTE | 2023-03-13 12:17 | NURSING ---
Lisinopril on DC home med list twice, 20 mg & 2.5 mg. This RN checked with Dr. Anderson and per instruction pt to continue home dose of 20 mg and disregard new ordered 2.5 mg. This RN crossed 2.5 mg lisinopril dose off of list and instructed pt of these instructions, also told spouse.
== END 2023-03-13 12:26 | disposition home or self-care (01) | DRG 322 ==
LOC: ED 04:25 → PCU 04:34
PROVIDERS: Internal Medicine Interventional Cardiology; Admitting Provider Internal Medicine; Emergency Provider Emergency Medicine; PCP Family Medicine; Visit Provider Internal Medicine
DX: I21.4 Non-ST elevation (NSTEMI) myocardial infarction (principal); E66.9 Obesity, unspecified; I10 Essential (primary) hypertension; E89.0 Postprocedural hypothyroidism; E78.00 Pure hypercholesterolemia, unspecified; I25.10 Atherosclerotic heart disease of native coronary artery without angina pectoris; Z95.5 Presence of coronary angioplasty implant and graft; Z68.32 Body mass index [BMI] 32.0-32.9, adult; Z90.710 Acquired absence of both cervix and uterus; Z79.02 Long term (current) use of antithrombotics/antiplatelets; Z79.82 Long term (current) use of aspirin; Z79.899 Other long term (current) drug therapy; Z87.42 Personal history of other diseases of the female genital tract; Z85.850 Personal history of malignant neoplasm of thyroid; Z86.73 Personal history of transient ischemic attack (TIA), and cerebral infarction without residual deficits; Z82.49 Family history of ischemic heart disease and other diseases of the circulatory system
CPT/HCPCS: 36415; 71045; 80048; 80053; 80061; 84443; 84484; 85025; 85027; 85347; 85379; 85610; 85730; 92928; 93005; 93306; 93454; 94668; 99152; 99153; 99252; 99285; J7030; J7040; J7120; Q9957; Q9967; A4216; C1725; C1769; C1874; C1887; C1894; C8929; C9600; G0463; J2405

== ENCOUNTER → 2023-04-12 | Outpatient (CLI) | payer MEDICARE, OTHER, SELFPAY ==
--- NOTE | 2023-04-12 10:10 | CR.HP_ITS ---
CR - History & Physical General Arrival date:: 04/12/23 Arrival time:: 10:11 Date of Referral:: 03/16/23 Date of CR Evaluation:: 04/12/23 Referring Physician: Dr. Kendal Hoffmann Primary Diagnosis: PCI with stent History of Present Cardiac Event Onset Date PTCA or coronary stenting:: Yes Vessel: LAD Medications Ambulatory Orders Medication Instructions Recorded amlodipine 5 mg tablet 5 mg PO DAILY 09/22/15 lisinopril 20 mg tablet 20 mg PO DAILY #30 tabs 10/11/15 atenolol 25 mg tablet 25 mg PO DAILY 12/25/21 levothyroxine 175 mcg tablet 137 mcg PO DAILY 12/25/21 B-complex with vitamin C 1 tab PO DAILY 05/21/22 ascorbic acid (vitamin C) 500 mg 500 mg PO DAILY 05/21/22 tablet (Vitamin C) aspirin 81 mg capsule 81 mg PO DAILY 05/21/22 calcium carb,cit ER 600 mg-vit D3 2 tab PO DAILY 05/21/22 12.5 mcg (500 unit) tablet,ext.rel (Citracal-D3 Slow Release) cholecalciferol (vitamin D3) 125 125 mcg PO DAILY 05/21/22 mcg (5,000 unit) tablet (Vitamin D3) garlic 1,000 mg capsule 1,000 mg PO DAILY 05/21/22 lysine 1,000 mg tablet 1,000 mg PO DAILY 05/21/22 turmeric root extract 500 mg 500 mg PO DAILY 05/21/22 capsule zinc lozenges 15 mg 15 mg PO DAILY 05/21/22 atorvastatin 40 mg tablet 40 mg PO DAILY #90 tabs 02/15/23 citalopram 10 mg tablet 10 mg PO DAILY #30 tabs 02/16/23 aspirin 81 mg tablet,delayed 81 mg PO DAILY@0800 #90 tabs 03/13/23 release lisinopril 2.5 mg tablet 2.5 mg PO DAILY #90 tabs 03/13/23 clopidogrel 75 mg tablet 75 mg PO .COMPLEX #90 tabs 04/08/23 Allergies Allergies Sulfa (Sulfonamide Antibiotics) Allergy (Intermediate, Verified 03/12/23 00:21) Rash pepper (genus Capsicum) Allergy (Verified 03/12/23 00:21) Swelling LIP SWELLING WITH JALEPENO adhesive tape Adverse Reaction (Intermediate, Verified 03/12/23 00:21) Rash PLASTIC TAPE Penicillins Adverse Reaction (Unknown, Verified 03/12/23 00:21) Rash Sleep Disorder Evaluation Hx of Sleep Apnea: No Do you snore loudly (louder than talking or can be heard through closed doors)?: No Do you often feel tired/ fatigued/ sleepy during daytime?: No Has anyone observed you stop breathing during sleep?: No History of Hypertension (for STOP score): Yes STOP Results: Negative Advanced Directives Advanced Directives Power of Continuous Improvement Engineer: No Living Will: No Advance Directives Information Provided: No Advance Directives on File: No (unsure if its on file) DNR Order?:: No Past Medical History Covid-19 Screening Physicial Symptoms Other Clinical Concerns Exposure Risk Pertinent Comorbidities 65 years or older:: Yes Has a serious heart condition:: Yes Past Medical Illness Past Medical History (Updated 03/21/23 @ 00:33 by Background Daemon) Aphthous ulcer of mouth Arthritis M19.90 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 Benign essential hypertension I10 Cancer C80.1 1993 THYROID Chest pain R07.9 Depression F32.A GERD (gastroesophageal reflux disease) K21.9 Hearing loss, left H91.92 High cholesterol E78.00 History of echocardiogram Z92.89 [facility], 09/26/2020 History of stress test Z92.89 YRS AGO History of stroke Z86.73 Hyperlipidemia E78.5 Hypertension I10 CONTROLLED ON MED Hypothyroidism E03.9 Leg cramps R25.2 [place]ie[place] disease H81.09 Non-smoker Z78.9 Post-menopausal Z78.0 Stress incontinence N39.3 Stroke/cerebrovascular accident I63.9 Thyroid disease E07.9 ON MED TIA (transient ischemic attack) G45.9 SEVERAL, HAS AFFECTED MEMORY Wears glasses Z97.3 READING Wears hearing aid Z97.4 Past Surgical History Past Surgical History (Updated 03/21/23 @ 00:33 by Background Daemon) H/O breast biopsy Z98.890 Right - benign H/O dilation and curettage Z98.890 H/O hernia repair Z98.890, Z87.19 AGE 6 H/O tubal ligation Z98.51 History of thyroidectomy E89.0 Hx of colonoscopy [id number] Hx of surgical procedure Z98.890 FACE LIFT-LEFT SIDE, REMOVAL OF DOUBLE CHIN Status post hysterectomy with oophorectomy Z90.710, Z90.721 Stented coronary artery (03/12/23) Z95.5 Sunday Dahlgren LIZETH 3X 22 mm to mid LAD Surgical History: - Family History Summary Family History Mother Heart disease Social History Smoking History Smoking Status: Never smoker Alcohol Use Alcohol Usage: No Substance Abuse Hx Substance Use: No Occupation Occupation (List type of work in comments):: Retired Hobbies, Recreation, Social Activities Hobbies: Sewing and Reading Recreational Activities: I am able to engage in all my recreational activities Social Environment Status Marital Status: Current Living Arrangements Living Environment:: Spouse Children How many children do you have?: 1 Do any of your children live nearby?: Yes Safety Do you feel safe in your surroundings?: Yes Assistance Do you need any assistance at home?: no Review of Systems Review of Systems Hints Review of Present Symptoms: Reports Shortness of Breath with Exertion, PVD, Fatigue, Appetite - Special Diet and Sleep - Normal; Denies Shortness of Breath at Rest, Operative Discomfort, Angina, Wound Healing, Dizziness/Lightheadedness, Heart Arrhythmia/Irregularities, Appetite - Normal or Sexual Changes Pain Is Patient Pain Free?: Yes Risk Factor Assessment Chief Complaint Chief Complaint: PCI with stent Vital Signs Pulse Ox: 97 Blood Pressure: 118/48 Pulse Pulse Rate: 65 Pulse Rhythm: Regular Hypertension How long have you been treated?: 10 Blood Pressure Sitting - Left Arm: 118/48 Obesity Height: 5 ft 2 in Weight:: 165 lb Weight in Pounds: 165.0 lbs Weight Source: Stated by Patient Body Mass Index (BMI): 30.2 Physical Inactivity Physical Inactivity: Reg Exercise 30 min/day (walking) For Smoking Smoking Risk Guidelines For Dyslipidemia Dyslipidemia Risk Guidelines For Diabetes Mellitus Diabetes Risk Guidelines For Obesity/Overweight Obesity/Overweight Risk Guidelines For Hypertension Hypertension Risk Guidelines For Sedentary Lifestyle Sedentary Lifestyle Risk Guidelines For Depression Depression Risk Guidelines Family History Family History Mother Heart disease Motivation Motivation to Participate On a scale of 1 to 10, how prepared are you to commit to attending program?: 8 What do you see as barriers to successfully being able to complete the program?: no What do you see as the benefits of succesfully completing the program? In other words, what do you hope to get out of participating in the program?: less SOB, get back to normal Are there issues you are dealing with that will interfere with completing the program?: no Do you have a spouse or signficant other, family or friends who will help support you to complete the program?: yes
--- NOTE | 2023-04-12 10:20 | CR.ITP_ITS ---
Diagnosis General Information Admitting Diagnosis: PCi with stent Personal Learning Style:: Audio/Visual Stage of change r/t lifestyle modifications:: Contemplation Gave educational material for:: Treating Heart Disease, How The Heart Works, What it means to have Heart Disease, How Coronary Artery Disease is Diagnosed, Heart Procedures, What Heart Medications Do, Risk Factors & Modifications, Living an Active Life, Nutrition, Emotions & Heart Disease, Stress Management & Relaxation and Sleep Disorders & Heart Disease Education/Goals Cardiac Rehabilitation Goals Personal Goals: Initial Assessment: Improve management of stress and emotions, Improve energy level, Participate in home exercise program, Improve knowledge of cardiac disease, Improve muscle strength and endurance, Improve diet and eating habits (eat healthier) and Control risk factors (learn risk factor modification) Scale for measuring improvement of personal goals Diagnosis & Disease Process Outcomes/Goals: Pt IDs own risk factors & lifestyle modifications by Session 10, Verbalizes symptoms of angina & response by session 3., Pt independently manages and Other Additional Outcomes/Goals: Plan/Interventions: Assist Pt to ID & engage in lifestyle modification to reduce CVD risk, Instruct on individual risk factors, Review symptoms of angina & emergency actions, Review secondary diagnosis & identify educational needs. and Other see comment 30 day Reassessments:: Not Met 30 day Reassessments:: Not Met 30 day Reassessments:: Not Met 30 day Reassessments:: Not Met Final Reassessments:: Not Met Safety Referral to Physical Therapy: No Referral to [facility] Case Management: No Fall Risk Assessed:: Yes Assistive Devices:: None Exercise - Initial Assessment Visit Date of Eval: 04/12/23 (initial eval ) Mets: Pre-: >3 METS for 30 minutes by discharge, >5 METS for 30 minutes by discharge, >7 METS for 30 minutes by discharge and Unable to meet goal due to: (see comment below) Stress Test EKG: NSR nonspecific ST abnormality Physician Prescribed Exercise Modalities: Treadmill, Rower, Airdyne, NuStep, SciFit and Lateral Gut Carrier Frequency: 3x/week for 12 weeks [36 sessions] Intensity: 60-80% of age predicted maximum heart rate reserve Duration: 30 - 45 minutes Current METSs:: 3 Target Heart Rate:: 85-99 Resting Blood Pressure: 118/48 EKG Type: NSR nonspecific ST abnormality Outcomes & Goals Goals:: Verbalizes understanding of THR, RPE & goal METS by session 6, Documents in home exercise log/reports 30 min aerobic 5 day/wk by DC, Demonstrates accurate pulse taking by DC and Other additional outcome/goals: see below Intervention & Plan Exercise Program Goals: Instruct on personal THR & RPE, Instruct on MET level & personal MET goal, Show patient to take own pulse /validate performance until accurate, Instruct on home exercise and Other additional plan/int Physical Activity Home Exercise Physical Activity - Home Exercise: Safe Exercise, Warm-up, Self-monitoring, Cool-Down, Home Exercise > 30 min Daily and Sitting Time <3 hours/daily Outcomes & Goals Outcomes/Goals: Demonstrates correct Warm-up/exercise Cool-Down (S3) if = 2.5 METs, Verbalizes symptoms of exercise intolerance by Session 3 (S3), Demonstrate safe equipment use (S3) & follows exercise prescrition (6) and Other: See below Intervention & Plan Plan/Intervention: Instruct warm-up & cool-down if exercising at > 2 METs, Instruct on symptoms of exercise intolerance & actions to take, Instruct & monitor on saf, Assess intial functional capacity & safety risk and Other See below Nutrition - Initial Assessment Program Goals Nutrition Program Goals Patient has diagnosis of Hyperlipidemia (ICD E78)?: Yes Visit Date of Eval: 04/12/23 (initial eval ) Cholesterol/Lipids (Other Core Measures) Determine presence & major risk factors that modify LDL goal: Hypertension or hypertensive medication, Low HDL cholesterol <40 mg/dL*, Family history of premature CHD in Male < 55 years: female <65 yearsFa and Age men > 45 years; women >/= 55 years Outcomes/Goals: Pt IDs own risk factors & lifestyle modifications by Session 10, Verbalizes symptoms of angina & response by session 3., Pt independently manages and Other Additional Outcomes/Goals: Intervention/Plan: Advocate for lipid panel cholesterol medication if applicable, Instruct on personal lipid levels & lipid goals/NCEP guidelines, Instruct on cholesterol and Other additional plan/int Referral to dietitian:: Yes Diabetes (Other Core Measures) Diabetes Type: Not Applicable Weight Mgt (Other Care) Height: 5 ft 2 in Weight:: 165 lb BMI: 30.2 Diagnosis Overweight/Obesity BMI> 30% ICD-10 E66: Yes Diagnosis High BMI/Morbid Obesity BMI> 35% ICD-10 Z68: No Outcomes/Goals: Pt sets, maintains & shows weight loss goal & trend during rehab and Other additional outcomes/goals Intervention/Plan: Instruct on ideal BMI & set weight loss goal w/patient, Assist pt to ID & incorporate diet changes for weight loss by S9, Refer to Structured Weight Loss program as appropriate, Encourage goal of using 250- 300dcal per session for weight loss and Other additional plan/interventions Healthy Eating Habits Will attend diet classes:: Yes Outcomes/Goals:: Consume diet rich in vegs,fruits,whole grain/high fiber,fish,lean meat, Limit sat/trans fats,cholesterol & added salts & sugars and Other additional outcome/goals: Intervention/Plan:: Assess current eating habits and Other Additional plan/interventions Education Gave educational materials for:: Signs & symptoms of hypoglycemia, Signs & symptoms of hyperglycemia, Relate diabetes to coronary artery disease and Healthy eating Core - Initial Assessment Visit Date of Eval: 04/12/23 (initial eval ) Medication Compliance Preventative Medication(s):: Aspirin, MIKA inhibitor, Statin/lipid and Beta thom H/O mental health issues: depression, anxiety, or addiction?: Yes Doesn?t believe in the benefits of treatment?: No Believes medications are unnecessary or harmful?: No Has a concern about medication side effects?: No Expresses concern over the cost of medications?: No Outcomes/Goals: Verbalizes medications,desired effect & common side effects @ DC , Pt self-reports following medication regimen, Keeps card in wallet w/medications listed by DC and Other additional outcome/goals: Interventions/plans: Instruct on medication effects & side effects, Review medication list w/patient every two weeks, Instruct importance of taking meds as ordered & assist problem solving and Other additional Tobacco Use Tobacco Use: Non-smoker Hypertension Hypertension Diagnosis:: Hypertension ICD-10 I10 Resting Blood Pressure:: 118/48 [place] [employer] Hypertension Guidelines Outcomes/Goals: Able to verbalize/achieve optimal blood pressure <130/80, Incorporates diet changes & exercise for blood pressure control by DC and Other additional outcomes/goals Interventions/plan: Instruct on optimal blood pressure, hypertension & medicat ions, Instruct on effects of sodium, alcohol, stress, exercise &hypertension and Other additional plan/interventions Tobacco Cessation Referral Smoking Cessation Referral:: No Individual Education/Counseling:: No Education Schedule Given:: Yes Psychosocial - Initial Assess VIsit Date of Eval: 04/12/23 (initial eval) History of previous Mental disease:: Yes History of Emotional Disorders: Depression Target Goals Target Goals Psychosocial Test Tool Used:: [employer] QOL Cardiac and PHQ-9 Questionnaire phq-9 Severity Outcomes/Goals: See list Psychosocial Outcomes/Goals:: ID's personal stressors & 2 strategies to manage stress by discharge and Other Additional outcome/goals: Intervention/Plan: See List Interventions/Plan:: Assess stressors,coping strategies & signs of derpression on admission, Instruct/assist pt to develop coping & personal stress Mgt strategies, Refer to Behavioral Health if appropriate, Refer to Physician if appropriate, Instruct patient to recognize signs & symptoms of depression, Instruct patient to recog and Other additional plan/intervention Patient Health Questionnaire PHQ-9 Screening Initial Assessment: 1. Little interest or pleasure in doing things: Nearly every day 2. Feeling down, depressed, or hopeless: More than half the days 3. Trouble falling or staying asleep, or sleeping too much: More than half the days 4. Feeling tired or having little energy: Several days 5. Poor appetite or overeating: Several days 6. Feeling bad about yourself -- or that you are a failure or have let yourself or your family down: Not at all 7. Trouble concentrating on things, such as reading the newspaper or watching television: Not at all 8. Moving or speaking so slowly that other people could have noticed. Or the opposite - being so fidgety or restless that you have been moving around a lot more than usual: Not at all 9. Thoughts that you would be better off , or of hurting yourself in some way: Not at all How difficult have these problems made it for you to do your work, take care of things at home, or get along with other people?: Somewhat difficult Total Score: 9 JOSIE-Q SV Test Statements CAD is a disease of the arteries in the heart: True Examples of risk factors for heart disease: True Angina is chest pain or discomfort: I Don't Know The benefits of resistance training include: I Don't Know Eating more meat and dairy products: False Anti-platelet medications such as aspirin are important: I Don't Know The only effective way to manage stress: True An exercise warm-up slowly increases heart rate: I Don't Know Prepared, processed foods usually have high sodium: True Depression is common after a heart attack: I Don't Know The statin medications lower cholesterol: I Don't Know To control blood pressure, lower the amount of sodium: True If someone gets chest discomfort during walking: False Transfats are partially hydrogenated vegetable oils: True Sleep apnea that is not treated increases the risk: I Don't Know To control cholesterol, one should become a vegetarian: I Don't Know Someone knows if he/she is exercising at the right level: I Don't Know Diabetes cannot be prevented with exercise & health eating: True Stress is a large risk for heart attack: True A diet that can help lower blood pressure is rich in: True Total Score Total Correct Responses: 8 Self-Efficacy 6-Item Scale Initial Assessment: We would like to know how confident you are in doing certain activities. Please select your confidence level for: Fatigue Select Number: 5 Physical Discomfort or Pain Emotional Distress Other Symptoms or Health Problems Different Tasks and Activities Select Number: 6 Medication Select Number: 6 Nutrition Survey Nutrition Survey Instructions Scoring Instructions Nutrition Survey Initial: Have you lost >10 lbs over the past 2 months without trying?: Yes Are you following a special diet at home for diabetes, low fat, or low salt?: Yes Are you interested in meeting with a dietitian for help understanding your diet?: Yes Do you eat less than 3 meals a day?: No Do you eat fatty meats (connell, sausage, ribs, etc), fried foods, desserts, large amounts of salad dressings, margarine, butter, or cheese most days?: No Do you have food allergies? [Enter types in comment field]: No Do you eat in restaurants more than 3 times a week?: No Do you season food with salt, seasoning salt, or garlic salt?: No Do you used canned, boxed, frozen meals, or soups, seasoning packets?: No Total Score:: 3 Exercise - Final/Discharge Physician Prescribed Exercise Modalities: Treadmill, Rower, Airdyne, NuStep, SciFit and Lateral [place] Frequency: 3x/week for 12 weeks [36 sessions] Intensity: 60-80% of age predicted maximum heart rate reserve Current METSs:: 3 Target Heart Rate:: 85-99 Nutrition - 30-Day Assessment Weight Mgt (Other Care) Height: 5 ft 2 in Weight:: 165 lb BMI: 30.2 Nutrition - 60-Day Assessment Weight Mgt (Other Care) Height: 5 ft 2 in Weight:: 165 lb BMI: 30.2 Core - Final Assessment Hypertension Resting Blood Pressure:: 118/48 [place] [employer] Hypertension Guidelines Core - 60-Day Assessment Hypertension Resting Blood Pressure:: 118/48 [place] [employer] Hypertension Guidelines Psychosocial - 30-Day Assess Target Goals Target Goals Psychosocial - 60-Day Assess Target Goals Target Goals Psychosocial - 90-Day Assess Target Goals Target Goals Psychosocial - Final Assessmen Target Goals Target Goals Nutrition - 90-Day Assessment Weight Mgt (Other Care) Height: 5 ft 2 in Weight:: 165 lb BMI: 30.2 Nutrition - Final Assessment Program Goals Patient has diagnosis of Hyperlipidemia (ICD E78)?: Yes Weight Mgt (Other Care) Height: 5 ft 2 in Weight:: 165 lb BMI: 30.2
[2023-04-12 10:42] VITALS: BP 118/48; PULSE 65; O2SAT 97
[2023-04-12 11:18] VITALS: BP 118/48; BMI 30.2
[2023-04-12 11:19] VITALS: BMI 30.2
== END | disposition home or self-care (01) ==
LOC: CR 10:02
PROVIDERS: PCP Family Medicine; Referring Provider Internal Medicine Interventional Cardiology; Visit Provider Internal Medicine Interventional Cardiology
DX: Z00.00 Encounter for general adult medical examination without abnormal findings (principal)

== ENCOUNTER → 2023-04-23 | Outpatient (CLI) | payer MEDICARE, OTHER, SELFPAY ==
[2023-04-12 11:18] VITALS: BMI 30.2
[2023-04-23 15:44] LABS: Absolute Lymphocyte Count 1.82 X10^3/uL (0.83-4.51); Absolute Neutrophil Count 3.8 X10^3/uL (2.0-7.7); Basophil# 0.07 X10^3/uL; Basophil% 1.1 % (0-1); Eosinophil# 0.16 X10^3/uL; Eosinophils% 2.5 % (0-5); Hematocrit 38.5 % (37-47); Hemoglobin 12.6 g/dL (12.0-15.0); Lymphocyte # 1.82 X10^3/ul (0.83-4.51); Lymphocyte % 28.7 % (19-41); Mean Corp Hgb Conc 32.7 g/dL (32-36); Mean Corpuscular Hgb 30.2 pg (27.0-32.0); Mean Corpuscular Volume 92.3 fL (81-99); Monocyte# 0.46 X10^3/uL; Monocyte% 7.2 % (0-10); NRBC Flagged by Analyzer 0 % (0-5); Neutrophil % 59.9 % (47-70); Platelet Count 272 K/mm3 (150-450); RBC Distribution Width CV 13.6 % (11.6-14.6); RBC Distribution Width SD 46.5 fl (35.1-43.9); Red Blood Count 4.17 M/mm3 (4.2-5.4); White Blood Count 6.4 K/mm3 (4.4-11.0)
[2023-04-23 16:49] LABS: Anion Gap 4 (5-15); BUN 16 mg/dL (7-18); BUN/Creat Ratio 19.1 RATIO (10-20); Calcium,Total 9.3 mg/dL (8.5-10.1); Chloride 108 mmol/L (98-107); Creatinine, Serum 0.84 mg/dL (0.55-1.02); EST Glomerular Filtration Rate 70 mL/min (>60); Est Glom Filt Rate - Afr Amer 84 mL/min (>60); Glucose 97 mg/dL (74-106); Potassium 4.4 mmol/L (3.5-5.1); Sodium Level 139 mmol/L (136-145)
== END | disposition home or self-care (01) ==
LOC: LAB 14:54
PROVIDERS: PCP Family Medicine; Referring Provider Nurse Practitioner Family; Visit Provider Nurse Practitioner Family
DX: I25.5 Ischemic cardiomyopathy (principal); I10 Essential (primary) hypertension; E78.5 Hyperlipidemia, unspecified; Z95.5 Presence of coronary angioplasty implant and graft
CPT/HCPCS: 36415; 80048; 85025

== ENCOUNTER 2023-05-12 12:43 | Observation (INO) | payer MEDICARE, OTHER, SELFPAY ==
[2023-04-12 11:18] VITALS: BMI 30.2
[2023-05-11 13:01] VITALS: BMI 30.7
[2023-05-12] VITALS (15 sets, daily range): BP systolic 114–170; BP diastolic 56–89; PULSE 55–69; RESP 13–24; TEMP 36.1–37.1; O2SAT 95–98; BMI 31.7
--- NOTE | 2023-05-12 11:53 | PCI.CARDCATH ---
PCI Cardiac Cath Report PCI Report: PCI cardiac cath report; 1. Successful PCI of the proximal calcified left circumflex, 80% with reduction of stenosis to 0%/complex ossified lesion lesion With predilatation using 2.5 x 15 mm balloon followed by lithotripsy /shockwave 3.0 x 12 mm treated/x 3 Followed by placement of drug-eluting stent 3 x 18 mm up to 14 DORIS reduction of stenosis from calcified 80% stenosis to 0% and maintenance of NASIM III pre and postprocedure. 2. Successful PCI of the distal circumflex with predilatation using 2.5 x 15 mm balloon followed by placement of drug-eluting stent 3 x 18 3. Noted distal in-stent dissection in the OM branch/large OM1 therefore we ,proceed with placement of 2 x 15 mm drug-eluting stent Kimberly frontier With reduction of stenosis from 90% to 0% and maintenance of NASIM III pre and postprocedure. 4. Worsening of the lesion in the mid circumflex was noted after placement of the proximal stent and following nitroglycerin, no improvement in the lesion is noted. Therefore we overlap stent which is 3 x 22 mm Sunday frontier and achievement of excellent result. 5. Placement of TR band to the right radial artery arteriotomy site During the procedure patient remained stable hemodynamically she have symptoms of chest pain which resolved. Consent; Risk and benefits of the procedure explained in detail This patient had a STEMI in February 2023 and underwent PCI of the culprit which is LAD And now presented for elective PCI of proximal and distal left circumflex. She has been on treatment with Plavix. We started on Brilinta 180 mg. The procedure was done with heparin infusion and ACT level was acceptable. Interventional equipment used during the procedure; 1. 6 Dominican 3.5 JL 4 guide catheter 2. 0.014 180 cm run-through extra floppy straight guidewire 3. 2.5 x 15 mm emerge MR balloon 4. Intravascular lithotripsy , for PTCA of a single coronary artery/proximal left circumflex/shockwave IVL 3 x 12 mm Preprocedure diagnosis this patient had history of coronary artery disease with STEMI in the LAD treated with stenting of the LAD in February 2023 She was scheduled for elective PCI of complex left circumflex calcified proximally diffuse atherosclerosis in the distal segment of the left circumflex with extension of calcification into the OM 2 and circumflex in the AV groove. Procedure in detail; Under fluoroscopic guidance we will proceed with 6 Dominican JL 3.5 advanced sending aorta cannulated the left main. Angiographic view was obtained in spider/CUBAN caudal as well as EDMONDSON caudal And then we proceeded with wire with the run-through wire across the lesion and placed in the OM 2 Following that we proceed with a 2.5 x 15 mm balloon dilate in the distal segment of the left circumflex As well as in the proximal left circumflex. Following this we proceed with placement of drug-eluting stent as specified, and the distal circumflex with the OM1 branch, noted there is a dissection distal to the stent. Then we proceeded and placed stent of 2 x 15 mm at the site of the dissection were able to maintain a NASIM-3 flow in the left circumflex with OM1 Shockwave was applied to the proximal segment of the left circumflex. Following this catheter was removed final angiographic view revealed patency of the previous LAD stent as well as patency of the stents to the left circumflex with NASIM-3 flow Patient's symptoms of chest pain resolved she does not have any further episode of chest pain and she remained stable hemodynamically. Conclusion and recommendation: 1. Patient to continue on dual antiplatelet therapy with Brilinta 90 mg twice daily in addition to low-dose aspirin 81 mg 2. Patient will be scheduled for cardiac rehab program phase 1 at [facility] cardiac team 3. Patient to follow-up with the primary bladder tier for continuation of cardiac care. Kendal Hoffmann MD,FACC,[facility]
--- NOTE | 2023-05-12 12:00 | EKG12_ITS ---
Test Reason : post-cath Blood Pressure : / mmHG Vent. Rate : 056 BPM Atrial Rate : 056 BPM P-R Int : 224 ms QRS Dur : 088 ms QT Int : 476 ms P-R-T Axes : 041 050 117 degrees QTc Int : 459 ms Sinus bradycardia with 1st degree A-V block ST & T wave abnormality, consider anterolateral ischemia Abnormal ECG When compared with ECG of 13-MAR-2023 05:21, T wave inversion no longer evident in Inferior leads QT has shortened Confirmed by JHOAN GOULD, AROLDO ([id number]), online editor ABHILASH PERALTA ([id number]) on 05/14/2023 10:42:55 AM Referred By: Kendal Hoffmann Confirmed By:AROLDO STAPLES MD
[2023-05-12] MEDS: 0.9% Normal Saline (1000mL) 1,000 ML 75 ML IV (13:31)
--- NOTE | 2023-05-12 13:39 | CRPHASE1_ITS ---
Patient Communication Patient Information Former Patient:: Phase I PHII Cardiac Rehab Discussed with Patient:: Yes Guide to Cardiac Rehab Given to Patient:: Yes Cardiac Rehab Facility Choice List Given to Patient:: Yes Communication to Cardiac Rehab Choice Program [facility] CR PHII:: Communication Given to CR Toggle Press Operator:: Kendal Hoffmann PCP:: Kendal Hoffmann Refer Phase II Cardiac Rehab:: Yes Sessions:: 36 sessions - 3 days/wk, 12 weeks Cardiac Rehabilitation Info Program Information Cardiac Rehabilitation Program Information: Cardiac Rehab The cardiac rehab team at [facility] consists of highly skilled exercise physiologists, nurses, respiratory therapists and physicians working together with you. Our purpose is to help you have a full recovery and achieve the goals you set for yourself. Over the years many of our patients have returned to activities they assumed they would never do again! We can help restore your confidence and motivation to make lifestyle changes that can have a significant impact on your health and quality of life! We can help answer questions and concerns you may have about exercise, lifestyle, medications, diet, stress and anxiety which are common following a hospitalization. WE monitor ECG and vital signs during exercise and discuss your progress with you and report to your physician(s). Cardiac Rehab is proven to help reduce readmissions, improve functional capacity and lower recurrence of problems with your heart. Our Cardiac Rehab program is Certified by the [place] [employer] of Cardio-Vascular and Pulmonary Rehabilitation (AACVPR) and Accredited by the [place] [employer] through our [facility]. You can contact us at . We invite you to call us with your questions or to get started in our program. If you have other questions or concerns be sure to ask your physician/provider during your follow-up visit. WE look forward to seeing you!
--- NOTE | 2023-05-12 13:40 | CRPH1.INST_ITS ---
General Education Discussed with Patient CAD and cardiac anatomy and function:: Patient communicates acknowledgment and Family communicates acknowledgment Explanation of diagnoses and procedures:: Patient communicates acknowledgment and Family communicates acknowledgment Sign/Symptoms of WA:: Patient communicates acknowledgment and Family communicates acknowledgment Antiplatelet therapy: Patient communicates acknowledgment, Family communicates acknowledgment and Needs reinforcement Proper use of NTG-SL: Patient communicates acknowledgment and Family communicates acknowledgment Emergency procedures and activation of EMS: Patient communicates acknowledgment and Family communicates acknowledgment Compliance of all prescribed medications: Patient communicates acknowledgment a nd Family communicates acknowledgment Smoking Risk Factors Patient Nicotine/Smoking Risk Factors Are:: Never smoked Dyslipidemia Recommendations Recommendations Include:: Therapeutic Lifestyle Change dietary guidelines Response Code Dyslipidemia Response Code:: Patient communicates acknowledgment Overweight/Obesity Risk Factors Patient Overweight/Obesity Risk Factors Are:: Obesity - > or = 30 Recommendations Recommendations Include:: Weight loss of 5-10% and Reduced calorie diet Response Code Overweight/Obesity:: Patient communicates acknowledgment Hypertension Recommendations Recommendations Include:: Maintain BP <130/85 and Decrease/maintain normal body weight Response Code Hypertension:: Patient communicates acknowledgment Heart Disease Risk Factors Patient Heart Disease Risk Factors Are:: Previous cardiac event Recommendations Recommendations Include:: Educated family members of their risk and Educated family members of importance of prevention of heart disease Response Code Heart Disease Response Code:: Patient communicates acknowledgment Diabetes Response Code Diabetes:: Not instructed Metabolic Syndrome Recommendations Recommendations Include:: Encouraged follow-up with Primary Care Physician Response Code Metabolic Syndrome Response Code:: Patient communicates acknowledgment Sedentary Recommendations Recommendations Include:: Aerobic exercise 5-7 times/week for 20-30 minutes continuously and Benefits of regular exercise Response Code Sedentary Response Code:: Patient communicates acknowledgment Stress Response Code Stress Response Code:: Patient communicates acknowledgment
--- NOTE | 2023-05-12 18:49 | NURSING ---
Pt. received from medical laboratory manager with nitro gtt running at 5 mcg/min. Contacted Dr. Hoffmann and got order to turn off nitro gtt. Turned off at 1320. Pt. denies any chest pain at this time
[2023-05-12] MEDS: ALPRAZolam 0.25 MG Tablet PO (21:06)
--- NOTE | 2023-05-12 21:12 | NURSING ---
Pt states she takes her lipitor in am and already had dose today. Declined dose tonight, pharmacy notified for retiming per pt request.
[2023-05-13] VITALS (13 sets, daily range): BP systolic 88–164; BP diastolic 46–103; PULSE 61–70; RESP 15–23; TEMP 36.2–36.6; O2SAT 94–97; BMI 31.7
[2023-05-13 03:01] LABS: Hematocrit 36.7 % (37-47); Hemoglobin 12.3 g/dL (12.0-15.0); Mean Corp Hgb Conc 33.5 g/dL (32-36); Mean Corpuscular Hgb 30.4 pg (27.0-32.0); Mean Corpuscular Volume 90.8 fL (81-99); Mean Platelet Vol. 8.9 fl (6.2-12.0); Platelet Count 192 K/mm3 (150-450); RBC Distribution Width CV 13.1 % (11.6-14.6); RBC Distribution Width SD 43.2 fl (35.1-43.9); Red Blood Count 4.04 M/mm3 (4.2-5.4); White Blood Count 7.4 K/mm3 (4.4-11.0)
[2023-05-13 03:19] LABS: ALB/GLOB Ratio 1.2 RATIO (0.9-2.4); AST(SGOT) 26 U/L (15-37); Alanine Aminotransfer ALT/SGPT 22 U/L (13-56); Albumin, Serum 3.4 g/dL (3.2-5.0); Alkaline Phosphatase 88 U/L (45-117); Anion Gap 8 (5-15); BUN 15 mg/dL (7-18); Calcium,Total 8.4 mg/dL (8.5-10.1); Chloride 110 mmol/L (98-107); Creatinine, Serum 0.75 mg/dL (0.55-1.02); EST Glomerular Filtration Rate 79 mL/min (>60); Est Glom Filt Rate - Afr Amer 96 mL/min (>60); Globulin 2.8 g/dL (2.2-4.2); Glucose 102 mg/dL (74-106); Potassium 3.9 mmol/L (3.5-5.1); Protein, Total 6.2 g/dL (6.4-8.2); Sodium Level 140 mmol/L (136-145)
[2023-05-13] MEDS: Levothyroxine 137 MCG Tablet PO (05:43)
[2023-05-13] MEDS: Aspirin E.C. 81 MG Tablet PO (08:04)
[2023-05-13] MEDS: Citalopram 10 MG Tablet PO (08:04)
[2023-05-13] MEDS: Lisinopril 2.5 MG Tablet PO (08:05)
[2023-05-13] MEDS: amLODIPine 5 MG Tablet PO (08:05)
[2023-05-13] MEDS: Atorvastatin Calcium 40 MG Tablet PO (08:05)
[2023-05-13] MEDS: Ascorbic Acid 500 MG Tablet PO (08:05)
--- NOTE | 2023-05-13 10:00 | EKG12_ITS ---
Test Reason : AM EKG Blood Pressure : / mmHG Vent. Rate : 066 BPM Atrial Rate : 066 BPM P-R Int : 216 ms QRS Dur : 086 ms QT Int : 434 ms P-R-T Axes : 063 071 102 degrees QTc Int : 454 ms Sinus rhythm with 1st degree A-V block ST & T wave abnormality, consider anterolateral ischemia Abnormal ECG Confirmed by JHOAN GOULD, AROLDO ([id number]), technical editor ABHILASH PERALTA ([id number]) on 05/14/2023 10:42:46 AM Referred By: Kendal Hoffmann Confirmed By:AROLDO STAPLES MD
--- NOTE | 2023-05-13 10:01 | CASEMGMT ---
Addendum entered by Alphonso Harris 05/13/23 11:35: Per [facility] @ [facility] retail pharmacy, pt has used the 30-day savings card for Brilinta and cost for pt is $47. They will deliver medications to pt's room. Addendum entered by Alphonso Harris 05/13/23 10:46: Call received from Ir[facility]. Pt will discharge home on Brilinta. CASSY MOORE noted this has been e-scribed to [facility], but pt would like to get from [facility] retail today. CASSY MOORE placed call [facility] in [facility] pharmacy and she will call [facility] to have Rx transferred. [facility] was also made aware pt would like meds delivered to her room. She will call this RN TERESA back once Rx tx'd and after pope-check completed. Original Note: CASSY MOORE NOTE: Pt to discharge home today. CASSY CM to room. Pt sitting up in chair in room. @ bedside. Pt to discharge home on Brilinta. Pt states she has been on this in the past and she does not think she has used the 30-day savings card. Pt would like to get her meds @ discharge from [facility] retail pharmacy and would like them delivered to her room. CASSY Solis, aware. Pt made aware, if Brilinta 30-day savings card has not been used in the past, that [facility] pharmacy will apply this. CASSY MOORE made aware, if refills are not affordable, to discuss this w/her patient resource specialist. She voices understanding. After pt had left the room, call received from CASSY Solis, stating pt reports has had diarrhea in the past w/Brilinta. Irma states she will notify physician. CASSY MOORE will follow. Yessica BRENNAN RN, CM
--- NOTE | 2023-05-13 10:17 | DCINST_ITS ---
Discharge Instructions Diet Discharge Diet: Low fat / Low cholesterol Activity Discharge Activity: Return to Normal Activity Lifting Restrictions: Nothing greater than 10 pounds for 3 days Dressing / Incision Call your doctor if your incision/area has: Continuous Slow Oozing, Sudden Increased Bleeding, Increased Pain/ Swelling, Increased Redness and Swelling at the incision site Follow Up Care When: [facility] will call you with an appointment for Dr. Irving this will be scheduled in 3 to 4 months Test Results: Test results from this visit will be discussed in further detail at your follow- up appointment, if applicable. Discharge Plan Admission Admit Date/Time: 05/12/23 12:43 Primary Reason for Your Visit: s/p PCI Attending Provider: Kendal Hoffmann Primary Care Provider: Elis Cardenas Instructions Additional Instructions / Restrictions: Dr. Hoffmann who did your heart catheterization would like you to stay on Brilinta for 1 month. This is because of the extensive work that he did yesterday on your blood vessel. After that if you do not have any further diarrhea you can switch back to your Plavix. However before doing so I would like you to call our office so we can give you the correct instructions. Our office's phone number is [phone] option 4 for the nurse. Discharge Orders/Prescriptions Prescriptions: New Brilinta 90 mg Tablet 90 mg PO BID Qty: 60 11RF Continued atorvastatin 40 mg tablet 40 mg PO DAILY Qty: 90 1RF citalopram 10 mg tablet 10 mg PO DAILY Qty: 30 5RF levothyroxine 137 mcg tablet 137 mcg PO DAILY (DME) Handicap Placard See Rx Instructions .Route .MEDSUPPLY Qty: 1 0RF Rx Instructions: Good From 04/23/2023-04/23/2028 atenolol 25 mg tablet 25 mg PO DAILY Patient Comments: heart/blood pressure amlodipine 5 MG tablet 5 mg PO DAILY Patient Comments: blood pressure lysine 1,000 mg Tablet 1,000 mg PO DAILY Hold Instructions: NOLONGER TAKING garlic 1,000 mg Capsule 1,000 mg PO DAILY Hold Instructions: NO LONGER TAKING ascorbic acid (vitamin C) [Vitamin C] 500 mg Tablet 500 mg PO DAILY zinc lozenges 15 mg Lozenge 15 mg PO DAILY B-complex with vitamin C Tablet 1 tab PO DAILY cholecalciferol (vitamin D3) [Vitamin D3] 125 mcg (5,000 unit) Tablet 125 mcg PO DAILY Patient Comments: PT TAKES 2 PILLS DAILY turmeric root extract 500 mg Capsule 500 mg PO DAILY calcium carb and citrate-vitD3 [Citracal-D3 Slow Release] 600 mg-12.5 mcg (500 unit) Tablet Extended Release 2 tab PO DAILY aspirin 81 mg Tablet,Delayed Release (Dr/Ec) 81 mg PO DAILY@0800 Qty: 90 0RF lisinopril 2.5 mg tablet 2.5 mg PO DAILY Qty: 90 0RF Discontinued clopidogrel 75 mg tablet 75 mg PO DAILY Qty: 90 3RF lisinopril 20 MG tablet 20 mg PO DAILY Qty: 30 0RF Patient Comments: BLOOD PRESSURE Referrals / Follow Up: Elis Cardenas DO [Primary Care Provider] - Disposition Disposition (needs filled in before D/C Order can be placed): Home, Self Care
--- NOTE | 2023-05-13 12:04 | CHAPLAIN ---
Type of Pastoral Visit _x__ Initial Visit ___ Follow-up Visit ___ On-call Visit ___ General Patient Visit ___ Spiritual Assessment ___ Family Conference ___ Bereavement ___ Rapid Response ___ Code Blue ___ Other (describe below) Pastoral Care Referral From _x__ Patient ___ Family ___ Nurse ___ Physician ___ Support Services Manager ___ [employer] [place] [employer] ___ Other (describe below) Sacrament/Intervention _x__ Active listening ___ Anointing ___ Mosque ___ Bereavement ___ Communion _x__ Vangie exploration ___ ___ Life review _x__ Prayer ___ Reconciliation ___ Sacrament of Sick _x__ Supportive presence ___ Wedding ___ Other (describe below) Pastoral Comments patient is welcoming and states that her health needs have been met here; pt admits that she is very tired due to very little sleep so she is happy to be going home today; pt has spouse at home and other family members in the area; pt has a good anabaptist connection as well; pt would like prayer support at this time
[2023-05-13 20:14] LABS: ACT Activated Clotting Time 249 sec (74-137)
== END 2023-05-13 12:00 | disposition home or self-care (01) ==
LOC: CLSP 12:58 → ICU 12:58
PROVIDERS: Admitting Provider Internal Medicine Interventional Cardiology; PCP Family Medicine; Referring Provider Internal Medicine Interventional Cardiology; Visit Provider Internal Medicine Interventional Cardiology
DX: I25.10 Atherosclerotic heart disease of native coronary artery without angina pectoris (principal); Z95.5 Presence of coronary angioplasty implant and graft; Z79.02 Long term (current) use of antithrombotics/antiplatelets; Z79.82 Long term (current) use of aspirin; E78.2 Mixed hyperlipidemia; I25.5 Ischemic cardiomyopathy; I25.2 Old myocardial infarction; I10 Essential (primary) hypertension; R60.0 Localized edema; R53.83 Other fatigue; Z79.899 Other long term (current) drug therapy; K21.9 Gastro-esophageal reflux disease without esophagitis; E03.9 Hypothyroidism, unspecified; Z79.890 Hormone replacement therapy
CPT/HCPCS: 80053; 85027; 85347; 92928; 92972; 93005; 96360; 96361; 99152; 99153; 99221; C1761; C1874; J7030; J7040; Q9967; C1725; C1769; C1887; C1894; C9600; G0378

== ENCOUNTER 2023-05-26 11:30 | Outpatient (RCR) | payer MEDICARE, OTHER, SELFPAY ==
[2023-04-12 11:18] VITALS: BMI 30.2
--- NOTE | 2023-05-12 08:18 | PCM.CR.ITP ---
Exercise - Initial Assessment Visit Comments:: pt has not started rehab due to another PCI Psychosocial - Initial Assess Target Goals Target Goals Nutrition Survey Nutrition Survey Instructions Scoring Instructions Exercise - 30-day Assessment Visit Date of Eval: 05/12/23 Comments:: pt has not started rehab due to another PCI Psychosocial - 30-Day Assess Target Goals Target Goals Psychosocial - 60-Day Assess Target Goals Target Goals Psychosocial - 90-Day Assess Target Goals Target Goals Psychosocial - Final Assessmen Target Goals Target Goals
== END 2023-05-26 23:59 ==
LOC: CR 11:30
PROVIDERS: PCP Family Medicine; Referring Provider Internal Medicine Interventional Cardiology; Visit Provider Internal Medicine Interventional Cardiology
DX: I21.4 Non-ST elevation (NSTEMI) myocardial infarction (principal); Z95.5 Presence of coronary angioplasty implant and graft; I25.10 Atherosclerotic heart disease of native coronary artery without angina pectoris
CPT/HCPCS: 93798

== ENCOUNTER 2023-06-23 11:30 | Outpatient (RCR) | payer MEDICARE, OTHER, SELFPAY ==
[2023-04-12 11:18] VITALS: BMI 30.2
--- NOTE | 2023-06-11 08:13 | PCM.CR.ITP ---
Nutrition - Initial Assessment Weight Mgt (Other Care) Height: 5 ft 2 in Weight:: 167 lb 8 oz BMI: 30.6 Core - Initial Assessment Hypertension Resting Blood Pressure:: 128/78 [place] [employer] Hypertension Guidelines Psychosocial - Initial Assess Target Goals Target Goals Patient Health Questionnaire PHQ-9 Screening 60-Day Re-eval Assessment: 1. Little interest or pleasure in doing things: Nearly every day 2. Feeling down, depressed, or hopeless: More than half the days 3. Trouble falling or staying asleep, or sleeping too much: More than half the days 4. Feeling tired or having little energy: Several days 5. Poor appetite or overeating: Not at all 6. Feeling bad about yourself -- or that you are a failure or have let yourself or your family down: Not at all 7. Trouble concentrating on things, such as reading the newspaper or watching television: Not at all 8. Moving or speaking so slowly that other people could have noticed. Or the opposite - being so fidgety or restless that you have been moving around a lot more than usual: Not at all 9. Thoughts that you would be better off , or of hurting yourself in some way: Not at all How difficult have these problems made it for you to do your work, take care of things at home, or get along with other people?: Somewhat difficult Total Score: 8 Self-Efficacy 6-Item Scale 60-Day Re-eval Assessment: We would like to know how confident you are in doing certain activities. Please select your confidence level for: Fatigue Select Number: 5 Physical Discomfort or Pain Select Number: 6 Emotional Distress Select Number: 6 Other Symptoms or Health Problems Different Tasks and Activities Medication Nutrition Survey Nutrition Survey Instructions Scoring Instructions Exercise - 60-day Assessment Visit Date of Eval: 06/11/23 Session #:: 4 Physician Prescribed Exercise Modalities: Treadmill, NuStep and Lateral [place] Frequency: 3x/week for 12 weeks [36 sessions] Intensity: 60-80% of age predicted maximum heart rate reserve Duration: 30 - 45 minutes Current METSs:: 3 Target Heart Rate:: 85-99 Current RPE:: 13-15 Maximum Excercise HR:: 73 Resting Blood Pressure: 128/64 Maximum Exercise Blood Pressure: 128/78 EKG Type: NSR with rare pac, pvc. Twave inversion Outcomes & Goals Goals:: Verbalizes understanding of THR, RPE & goal METS by session 6, Documents in home exercise log/reports 30 min aerobic 5 day/wk by DC, Demonstrates accurate pulse taking by DC and Other additional outcome/goals: see below Intervention & Plan Exercise Program Goals: Instruct on personal THR & RPE, Instruct on MET level & personal MET goal, Show patient to take own pulse /validate performance until accurate, Instruct on home exercise and Other additional plan/int 30-day Reassessments 30 day Reassessments:: Progressing Reassessment Notes & Comments:: RPE explained Physical Activity Home Exercise Physical Activity - Home Exercise: Safe Exercise, Warm-up, Self-monitoring, Cool-Down, Home Exercise > 30 min Daily and Sitting Time <3 hours/daily Outcomes & Goals Outcomes/Goals: Demonstrates correct Warm-up/exercise Cool-Down (S3) if = 2.5 METs, Verbalizes symptoms of exercise intolerance by Session 3 (S3), Demonstrate safe equipment use (S3) & follows exercise prescrition (6) and Other: See below Intervention & Plan Plan/Intervention: Instruct warm-up & cool-down if exercising at > 2 METs, Instruct on symptoms of exercise intolerance & actions to take, Instruct & monitor on saf, Assess intial functional capacity & safety risk and Other See below 30-day Reassessments 30 day Reassessments:: Progressing Reassessment Notes & Comments:: warm up encouraged Nutrition - 30-Day Assessment Weight Mgt (Other Care) Height: 5 ft 2 in Weight:: 167 lb 8 oz BMI: 30.6 Nutrition - 60-Day Assessment Program Goals Nutrition Program Goals Patient has diagnosis of Hyperlipidemia (ICD E78)?: Yes Visit Date of Eval: 06/11/23 Session #:: 4 Cholesterol/Lipids (Other Core Measures) Determine presence & major risk factors that modify LDL goal: Hypertension or hypertensive medication, Low HDL cholesterol <40 mg/dL*, Family history of premature CHD in Male < 55 years: female <65 yearsFa and Age men > 45 years; women >/= 55 years Outcomes/Goals: Pt IDs own risk factors & lifestyle modifications by Session 10, Verbalizes symptoms of angina & response by session 3., Pt independently manages and Other Additional Outcomes/Goals: Intervention/Plan: Advocate for lipid panel cholesterol medication if applicable, Instruct on personal lipid levels & lipid goals/NCEP guidelines, Instruct on cholesterol and Other additional plan/int 30-day Reassessments:: Progressing Reassessment Notes & Comments:: pt to attend nutrition class Diabetes (Other Core Measures) Diabetes Type: Not Applicable Weight Mgt (Other Care) Height: 5 ft 2 in Weight:: 167 lb 8 oz BMI: 30.6 Diagnosis Overweight/Obesity BMI> 30% ICD-10 E66: Yes Diagnosis High BMI/Morbid Obesity BMI> 35% ICD-10 Z68: No Outcomes/Goals: Pt sets, maintains & shows weight loss goal & trend during rehab and Other additional outcomes/goals Intervention/Plan: Instruct on ideal BMI & set weight loss goal w/patient, Assist pt to ID & incorporate diet changes for weight loss by S9, Refer to Structured Weight Loss program as appropriate, Encourage goal of using 250-300dcal per session for weight loss and Other additional plan/interventions 30 day Reassessments:: Progressing Reassessment Notes & Comments:: pt to attend nutrition class Healthy Eating Habits Will attend diet classes:: Yes Outcomes/Goals:: Consume diet rich in vegs,fruits,whole grain/high fiber,fish,lean meat, Limit sat/trans fats,cholesterol & added salts & sugars and Other additional outcome/goals: Intervention/Plan:: Assess current eating habits and Other Additional plan/interventions 30-day Reassessments:: Progressing Reassessment Notes & Comments:: pt to attend nutrition class Core - Final Assessment Hypertension Resting Blood Pressure:: 128/78 [place] [employer] Hypertension Guidelines Core - 60-Day Assessment Visit Date of Eval: 06/11/23 Session #:: 4 Medication Compliance Preventative Medication(s):: Aspirin, MIKA inhibitor, Statin/lipid and Beta thom H/O mental health issues: depression, anxiety, or addiction?: Yes Doesn?t believe in the benefits of treatment?: No Believes medications are unnecessary or harmful?: No Has a concern about medication side effects?: No Expresses concern over the cost of medications?: No Outcomes/Goals: Verbalizes medications,desired effect & common side effects @ DC, Pt self-reports following medication regimen, Keeps card in wallet w/medications listed by DC and Other additional outcome/goals: Interventions/plans: Instruct on medication effects & side effects, Review medication list w/patient every two weeks, Instruct importance of taking meds as ordered & assist problem solving and Other additional 30-day Reassessments:: Progressing Reassessment Notes & Comments:: pt encouraged to take her meds Tobacco Use Tobacco Use: Non-smoker Hypertension Hypertension Diagnosis:: Hypertension ICD-10 I10 Resting Blood Pressure:: 128/64 Resting Blood Pressure:: 128/78 [place] [employer] Hypertension Guidelines Outcomes/Goals: Able to verbalize/achieve optimal blood pressure <130/80, Incorporates diet changes & exercise for blood pressure control by DC and Other additional outcomes/goals Interventions/plan: Instruct on optimal blood pressure, hypertension & medications, Instruct on effects of sodium, alcohol, stress, exercise &hypertension and Other additional plan/interventions 30 day Reassessments:: Progressing Reassessment Notes & Comments:: pt encouraged to take her meds Tobacco Cessation Referral Smoking Cessation Referral:: No Individual Education/Counseling:: No Education Schedule Given:: Yes Psychosocial - 30-Day Assess Target Goals Target Goals Outcomes/Goals: See list Psychosocial Outcomes/Goals:: ID's personal stressors & 2 strategies to manage stress by discharge and Other Additional outcome/goals: Psychosocial - 60-Day Assess VIsit Date of Eval: 06/11/23 Session #:: 4 History of Emotional Disorders: Depression Target Goals Target Goals Outcomes/Goals: See list Psychosocial Outcomes/Goals:: ID's personal stressors & 2 strategies to manage stress by discharge and Other Additional outcome/goals: Intervention/Plan: See List Interventions/Plan:: Assess stressors,coping strategies & signs of derpression on admission, Instruct/assist pt to develop coping & personal stress Mgt strategies, Refer to Behavioral Health if appropriate, Refer to Physician if appropriate, Instruct patient to recognize signs & symptoms of depression, Instruct patient to recog and Other additional plan/intervention 30-day Reassessments: 30 day Reassessments:: Progressing Psychosocial - 90-Day Assess Target Goals Target Goals Psychosocial - Final Assessmen Target Goals Target Goals Nutrition - 90-Day Assessment Weight Mgt (Other Care) Height: 5 ft 2 in Weight:: 167 lb 8 oz BMI: 30.6 Nutrition - Final Assessment Weight Mgt (Other Care) Height: 5 ft 2 in Weight:: 167 lb 8 oz BMI: 30.6
[2023-06-11 08:22] VITALS: BP 128/64; BP 128/78
[2023-06-11 08:23] VITALS: BMI 30.6
== END 2023-06-24 23:59 ==
LOC: CR 11:30
PROVIDERS: PCP Family Medicine; Referring Provider Internal Medicine Interventional Cardiology; Visit Provider Internal Medicine Interventional Cardiology
DX: I21.4 Non-ST elevation (NSTEMI) myocardial infarction (principal); Z95.5 Presence of coronary angioplasty implant and graft; I25.10 Atherosclerotic heart disease of native coronary artery without angina pectoris
CPT/HCPCS: 93798

== ENCOUNTER → 2023-07-09 | Outpatient (CLI) | payer MEDICARE, OTHER, SELFPAY ==
[2023-04-12 11:18] VITALS: BMI 30.2
[2023-06-11 08:23] VITALS: BMI 30.6
[2023-07-09 10:42] LABS: AST(SGOT) 23 U/L (15-37); Alanine Aminotransfer ALT/SGPT 29 U/L (13-56); CPK Total, Creatine Kinase 43 U/L (26-192); Cholesterol 249 mg/dL (200); High Density Lipoprotein 45 mg/dL; Triglycerides 317 mg/dL; Very Low Density Lipoprotein 63 mg/dL (5-40)
--- NOTE | 2023-07-09 12:10 | ECHOL_ITS ---
Reason For Study: CHF Procedure This was a limited 2D transthoracic echocardiogram. Exam performed in department. Left Ventricle Normal size and thickness. The left ventricular ejection fraction is 60 %. Unable to assess diastolic function based on available data. Right Ventricle Normal right ventricle. Atria The left atrium is mildly enlarged. Normal right atrium. Mitral Valve Mild (1+) mitral valve insufficiency. Tricuspid Valve Normal tricuspid valve. Aortic Valve Aortic sclerosis, no stenosis. Mild-Moderate (1-2+) aortic valve insufficiency. Pulmonic Valve The pulmonic valve is not well visualized. Great Vessels Normal sized aortic root. Pericardium/Pleural No pericardial effusion. MMode/2D Measurements & Calculations LVIDd: 4.5 cm IVSd: 0.98 cm LA dimension: 4.3 cm LVIDs: 2.8 cm LVPWd: 1.1 cm FS: 37.9 % LVAd ap4: 24.9 cm2 LVAd ap2: 24.7 cm2 SV(MOD-sp4): 45.4 ml LVLd ap4: 7.1 cm LVLd ap2: 7.5 cm EDV(MOD-sp4): 72.2 ml EDV(MOD-sp2): 67.9 ml EDV(sp4-el): 73.9 ml EDV(sp2-el): 68.6 ml LVAs ap4: 14.4 cm2 LVAs ap2: 14.7 cm2 LVLs ap4: 6.4 cm LVLs ap2: 6.7 cm ESV(MOD-sp4): 26.8 ml ESV(MOD-sp2): 30.7 ml ESV(sp4-el): 27.6 ml ESV(sp2-el): 27.3 ml EF(MOD-sp4): 62.8 % EF(MOD-sp2): 54.8 % EF(sp4-el): 62.6 % SV(MOD-sp2): 37.2 ml SV(sp4-el): 46.3 ml Doppler Measurements & Calculations AI max jw: 359.1 cm/sec MR max jw: 504.0 cm/sec AI max P.6 mmHg MR max P.6 mmHg AI dec slope: 196.3 cm/sec2 AI P1/2t: 535.8 msec ECHO/Echo, Limited Study Interpretation Summary The left ventricular ejection fraction is 60 %. The left atrium is mildly enlarged. Mild (1+) mitral valve insufficiency. Aortic sclerosis, no stenosis. Mild-Moderate (1-2+) aortic valve insufficiency. Ordering Physician: Aiden Galan Referring Physician: Aiden Galan Performed By: Eric Vargas RCS
== END | disposition home or self-care (01) ==
LOC: CVS 12:09
PROVIDERS: Internal Medicine Cardiovascular Disease; PCP Family Medicine; Referring Provider Nurse Practitioner Family; Visit Provider Nurse Practitioner Family
DX: I25.5 Ischemic cardiomyopathy (principal); I10 Essential (primary) hypertension; Z95.5 Presence of coronary angioplasty implant and graft
CPT/HCPCS: 36415; 80061; 82550; 84450; 84460; 93308

== ENCOUNTER 2023-07-23 11:30 | Outpatient (RCR) | payer MEDICARE, OTHER, SELFPAY ==
[2023-06-11 08:23] VITALS: BMI 30.6
[2023-06-25 00:32] VITALS: BP 128/64; BP 128/78
--- NOTE | 2023-07-12 08:53 | CR.ITP_ITS ---
Nutrition - Initial Assessment Weight Mgt (Other Care) Height: 5 ft 2 in Weight:: 165 lb BMI: 30.2 Psychosocial - Initial Assess Target Goals Target Goals Patient Health Questionnaire PHQ-9 Screening 90-Day Re-eval Assessment: 1. Little interest or pleasure in doing things: Nearly every day 2. Feeling down, depressed, or hopeless: More than half the days 3. Trouble falling or staying asleep, or sleeping too much: More than half the days 4. Feeling tired or having little energy: Several days 5. Poor appetite or overeating: Not at all 6. Feeling bad about yourself -- or that you are a failure or have let yourself or your family down: Not at all 7. Trouble concentrating on things, such as reading the newspaper or watching television: Not at all 8. Moving or speaking so slowly that other people could have noticed. Or t he opposite - being so fidgety or restless that you have been moving around a lot more than usual: Not at all 9. Thoughts that you would be better off , or of hurting yourself in some way: Not at all How difficult have these problems made it for you to do your work, take care of things at home, or get along with other people?: Somewhat difficult Total Score: 8 Self-Efficacy 6-Item Scale 90-Day Re-eval Assessment: We would like to know how confident you are in doing certain activities. Please select your confidence level for: Fatigue Select Number: 5 Physical Discomfort or Pain Emotional Distress Other Symptoms or Health Problems Different Tasks and Activities Select Number: 6 Medication Select Number: 6 Nutrition Survey Nutrition Survey Instructions Scoring Instructions Exercise - 90-day Assessment Visit Date of Eval: 07/12/23 Session #:: 17 Physician Prescribed Exercise Modalities: Treadmill, Airdyne and NuStep Frequency: 3x/week for 12 weeks [36 sessions] Intensity: 60-80% of age predicted maximum heart rate reserve Duration: 30 - 45 minutes Current METSs:: 3.7 Target Heart Rate:: 85-99 Current RPE:: 11-12 Maximum Excercise HR:: 91 Resting Blood Pressure: 132/54 Maximum Exercise Blood Pressure: 152/60 EKG Type: NSR with a rare pac,pvc. Twave inversion Outcomes & Goals Goals:: Verbalizes understanding of THR, RPE & goal METS by session 6, Documents in home exercise log/reports 30 min aerobic 5 day/wk by DC, Demonstrates accurate pulse taking by DC and Other additional outcome/goals: see below Intervention & Plan Exercise Program Goals: Instruct on personal THR & RPE, Instruct on MET level & personal MET goal, Show patient to take own pulse /validate performance until accurate, Instruct on home exercise and Other additional plan/int 30-day Reassessments 30 day Reassessments:: Met Physical Activity Home Exercise Physical Activity - Home Exercise: Safe Exercise, Warm-up, Self-monitoring, Cool-Down, Home Exercise > 30 min Daily and Sitting Time <3 hours/daily Outcomes & Goals Outcomes/Goals: Demonstrates correct Warm-up/exercise Cool-Down (S3) if = 2.5 METs, Verbalizes symptoms of exercise intolerance by Session 3 (S3), Demonstrate safe equipment use (S3) & follows exercise prescrition (6) and Other: See below Intervention & Plan Plan/Intervention: Instruct warm-up & cool-down if exercising at > 2 METs, Instruct on symptoms of exercise intolerance & actions to take, Instruct & mon itor on saf, Assess intial functional capacity & safety risk and Other See below 30-day Reassessments 30 day Reassessments:: Met Nutrition - 30-Day Assessment Weight Mgt (Other Care) Height: 5 ft 2 in Weight:: 165 lb BMI: 30.2 Nutrition - 60-Day Assessment Weight Mgt (Other Care) Height: 5 ft 2 in Weight:: 165 lb BMI: 30.2 Core - 90 Day Assessment Visit Date of Eval: 07/12/23 Session #:: 17 Medication Compliance Preventative Medication(s):: Aspirin, MIKA inhibitor, Statin/lipid and Beta thom H/O mental health issues: depression, anxiety, or addiction?: Yes Doesn?t believe in the benefits of treatment?: No Believes medications are unnecessary or harmful?: No Has a concern about medication side effects?: No Expresses concern over the cost of medications?: No Outcomes/Goals: Verbalizes medications,desired effect & common side effects @ DC, Pt self-reports following medication regimen, Keeps card in wallet w/medications listed by DC and Other additional outcome/goals: Interventions/plans: Instruct on medication effects & side effects, Review medication list w/patient every two weeks, Instruct importance of taking meds as ordered & assist problem solving and Other additional 30-day Reassessments:: Met Tobacco Use Tobacco Use: Non-smoker Hypertension Hypertension Diagnosis:: Hypertension ICD-10 I10 Resting Blood Pressure:: 132/54 Citizen Of [place] Heart Association Hypertension Guidelines Peak Exercise Blood Pressure:: 152/60 Outcomes/Goals: Able to verbalize/achieve optimal blood pressure <130/80, Incorporates diet changes & exercise for blood pressure control by DC and Other additional outcomes/goals Interventions/plan: Instruct on optimal blood pressure, hypertension & medications, Instruct on effects of sodium, alcohol, stress, exercise &hypertension and Other additional plan/interventions 30 day Reassessments:: Met Tobacco Cessation Referral Smoking Cessation Referral:: No Individual Education/Counseling:: No Education Schedule Given:: Yes Psychosocial - 30-Day Assess Target Goals Target Goals Psychosocial - 60-Day Assess Target Goals Target Goals Psychosocial - 90-Day Assess VIsit Date of Eval: 07/12/23 History of previous Mental disease:: Yes History of Emotional Disorders: Depression Target Goals Target Goals Outcomes/Goals: See list Psychosocial Outcomes/Goals:: ID's personal stressors & 2 strategies to manage stress by discharge and Other Additional outcome/goals: Intervention/Plan: See List Interventions/Plan:: Assess stressors,coping strategies & signs of derpression on admission, Instruct/assist pt to develop coping & personal stress Mgt strategies, Refer to Behavioral Health if appropriate, Refer to Physician if appropriate, Instruct patient to recognize signs & symptoms of depression, Instruct patient to recog and Other additional plan/intervention 30-day Reassessments: 30 day Reassessments:: Met Psychosocial - Final Assessmen Target Goals Target Goals Nutrition - 90-Day Assessment Program Goals Nutrition Program Goals Patient has diagnosis of Hyperlipidemia (ICD E78)?: Yes Visit Date of Eval: 07/12/23 Session #:: 17 Cholesterol/Lipids (Other Core Measures) Determine presence & major risk factors that modify LDL goal: Cigarette smoking, Hypertension or hypertensive medication, Low HDL cholesterol <40 mg/dL*, Family history of premature CHD in Male < 55 years: female <65 yearsFa and Age men > 45 years; women >/= 55 years Outcomes/Goals: Pt IDs own risk factors & lifestyle modifications by Session 10, Verbalizes symptoms of angina & response by session 3., Pt independently manages and Other Additional Outcomes/Goals: Intervention/Plan: Advocate for lipid panel cholesterol medication if applicable, Instruct on personal lipid levels & lipid goals/NCEP guidelines, Instruct on cholesterol and Other additional plan/int Referral to dietitian:: Yes 30-day Reassessments:: Met Diabetes (Other Core Measures) Diabetes Type: Not Applicable Weight Mgt (Other Care) Height: 5 ft 2 in Weight:: 165 lb BMI: 30.2 Diagnosis Overweight/Obesity BMI> 30% ICD-10 E66: Yes Diagnosis High BMI/Morbid Obesity BMI> 35% ICD-10 Z68: No Healthy Eating Habits Will attend diet classes:: Yes Outcomes/Goals:: Consume diet rich in vegs,fruits,whole grain/high fiber,fish,lean meat, Limit sat/trans fats,cholesterol & added salts & sugars and Other additional outcome/goals: Intervention/Plan:: Assess current eating habits and Other Additional plan/interventions 30-day Reassessments:: Met Education Gave educational materials for:: Signs & symptoms of hypoglycemia, Signs & symptoms of hyperglycemia, Relate diabetes to coronary artery disease and Health y eating Nutrition - Final Assessment Weight Mgt (Other Care) Height: 5 ft 2 in Weight:: 165 lb BMI: 30.2
[2023-07-12 09:05] VITALS: BP 132/54; BMI 30.2
== END 2023-07-25 23:59 ==
LOC: CR 11:30
PROVIDERS: PCP Family Medicine; Referring Provider Internal Medicine Interventional Cardiology; Visit Provider Internal Medicine Interventional Cardiology
DX: I21.4 Non-ST elevation (NSTEMI) myocardial infarction (principal); Z95.5 Presence of coronary angioplasty implant and graft; I25.10 Atherosclerotic heart disease of native coronary artery without angina pectoris
CPT/HCPCS: 93798

== ENCOUNTER 2023-08-16 11:15 | Outpatient (RCR) | payer MEDICARE, OTHER, SELFPAY ==
[2023-07-12 09:05] VITALS: BMI 30.2
[2023-07-26 00:25] VITALS: BP 128/64; BP 128/78; BP 132/54
--- NOTE | 2023-08-11 08:41 | PCM.CR.ITP ---
Nutrition - Initial Assessment Weight Mgt (Other Care) Height: 5 ft 2 in Weight:: 163 lb BMI: 29.8 Core - Initial Assessment Hypertension Resting Blood Pressure:: 160/60 [place] [employer] Hypertension Guidelines Psychosocial - Initial Assess Target Goals Target Goals Referral to Behavioral Health PS - Interventions: Yes: Attend Stress Management Classes and No: Referral to Behavioral Health if PHQ-9 score >9:, No: Referral to [facility] and No: Referral to Physician if PHQ-9 if score is 5-9: Patient Health Questionnaire PHQ-9 Screening 60-Day Re-eval Assessment: 1. Little interest or pleasure in doing things: More than half the days 2. Feeling down, depressed, or hopeless: Several days 3. Trouble falling or staying asleep, or sleeping too much: Several days 4. Feeling tired or having little energy: Not at all 5. Poor appetite or overeating: Not at all 6. Feeling bad about yourself -- or that you are a failure or have let yourself or your family down: Not at all 7. Trouble concentrating on things, such as reading the newspaper or watching television: Not at all 8. Moving or speaking so slowly that other people could have noticed. Or the opposite - being so fidgety or restless that you have been moving around a lot more than usual: Not at all 9. Thoughts that you would be better off , or of hurting yourself in some way: Not at all How difficult have these problems made it for you to do your work, take care of things at home, or get along with other people?: Not difficult at all Total Score: 4 Self-Efficacy 6-Item Scale 60-Day Re-eval Assessment: We would like to know how confident you are in doing certain activities. Please select your confidence level for: Fatigue Select Number: 5 Physical Discomfort or Pain Select Number: 6 Emotional Distress Select Number: 7 Other Symptoms or Health Problems Select Number: 7 Different Tasks and Activities Select Number: 8 Medication Select Number: 8 Total Score:: 6 Nutrition Survey Nutrition Survey Instructions Scoring Instructions Exercise - 60-day Assessment Visit Date of Eval: 08/11/23 Session #:: 27 Physician Prescribed Exercise Modalities: Treadmill, Airdyne and NuStep Frequency: 3x/week for 12 weeks [36 sessions] Intensity: 60-80% of age predicted maximum heart rate reserve Duration: 30 - 45 minutes Current METSs:: 4.0 Target Heart Rate:: 106-120 Maximum Excercise HR:: 84 Resting Blood Pressure: 130/52 Maximum Exercise Blood Pressure: 160/60 EKG Type: NSR w/ PAC, PVC T wave inversion Outcomes & Goals Goals:: Verbalizes understanding of THR, RPE & goal METS by session 6, Documents in home exercise log/reports 30 min aerobic 5 day/wk by DC and Demonstrates accurate pulse taking by DC Intervention & Plan Exercise Program Goals: Instruct on personal THR & RPE, Instruct on MET level & personal MET goal, Show patient to take own pulse /validate performance until accurate and Instruct on home exercise 30-day Reassessments 30 day Reassessments:: Met Physical Activity Home Exercise Physical Activity - Home Exercise: Safe Exercise, Warm-up, Self-monitoring, Cool-Down, Home Exercise > 30 min Daily and Sitting Time <3 hours/daily Outcomes & Goals Outcomes/Goals: Demonstrates correct Warm-up/exercise Cool-Down (S3) if = 2.5 METs, Verbalizes symptoms of exercise intolerance by Session 3 (S3) and Demonstrate safe equipment use (S3) & follows exercise prescrition (6) Intervention & Plan Plan/Intervention: Instruct warm-up & cool-down if exercising at > 2 METs, Instruct on symptoms of exercise intolerance & actions to take, Instruct & monitor on saf and Assess intial functional capacity & safety risk 30-day Reassessments 30 day Reassessments:: Met Nutrition - 30-Day Assessment Weight Mgt (Other Care) Height: 5 ft 2 in Weight:: 163 lb BMI: 29.8 Nutrition - 60-Day Assessment Program Goals Nutrition Program Goals Patient has diagnosis of Hyperlipidemia (ICD E78)?: Yes Visit Date of Eval: 08/11/23 Session #:: 27 Cholesterol/Lipids (Other Core Measures) Determine presence & major risk factors that modify LDL goal: Hypertension or hypertensive medication, Family history of premature CHD in Male < 55 years: female <65 yearsFa and Age men > 45 years; women >/= 55 years Outcomes/Goals: Pt IDs own risk factors & lifestyle modifications by Session 10, Verbalizes symptoms of angina & response by session 3. and Pt independently manages Intervention/Plan: Instruct on personal lipid levels & lipid goals/NCEP guidelines and Instruct on cholesterol Referral to dietitian:: Yes 30-day Reassessments:: Progressing Diabetes (Other Core Measures) Diabetes Type: Not Applicable Weight Mgt (Other Care) Height: 5 ft 2 in Weight:: 163 lb BMI: 29.8 Diagnosis Overweight/Obesity BMI> 30% ICD-10 E66: Yes Diagnosis High BMI/Morbid Obesity BMI> 35% ICD-10 Z68: No Outcomes/Goals: Pt sets, maintains & shows weight loss goal & trend during rehab Intervention/Plan: Instruct on ideal BMI & set weight loss goal w/patient, Assist pt to ID & incorporate diet changes for weight loss by S9, Refer to Structured Weight Loss program as appropriate and Encourage goal of using 250-300dcal per session for weight loss 30 day Reassessments:: Not Met Healthy Eating Habits Will attend diet classes:: Yes Outcomes/Goals:: Consume diet rich in vegs,fruits,whole grain/high fiber,fish,lean meat and Limit sat/trans fats,cholesterol & added salts & sugars Intervention/Plan:: Assess current eating habits 30-day Reassessments:: Progressing Education Gave educational materials for:: Healthy eating Core - Final Assessment Hypertension Resting Blood Pressure:: 160/60 [place] [employer] Hypertension Guidelines Core - 60-Day Assessment Visit Date of Eval: 08/11/23 Medication Compliance Preventative Medication(s):: Aspirin, Clopidogrel/P2Y12 inhibit, Statin/lipid and Beta thom H/O mental health issues: depression, anxiety, or addiction?: No Doesn?t believe in the benefits of treatment?: No Believes medications are unnecessary or harmful?: No Has a concern about medication side effects?: No Expresses concern over the cost of medications?: No Outcomes/Goals: Verbalizes medications,desired effect & common side effects @ DC, Pt self-reports following medication regimen and Keeps card in wallet w/medications listed by DC Interventions/plans: Instruct on medication effects & side effects, Review medication list w/patient every two weeks and Instruct importance of taking meds as ordered & assist problem solving 30-day Reassessments:: Progressing Tobacco Use Tobacco Use: Non-smoker Interventions/plan: Instruct on effects of smoking & provide smoking cessation resource, Assist pt to set quit date & provide encouragement, Assist pt to develop strategies to achieve/maintain quit date and Assist pt w/nicotine replacement & medication for cessation success 30-day Reassessments:: Met Hypertension Hypertension Diagnosis:: Hypertension ICD-10 I10 Resting Blood Pressure:: 130/52 Resting Blood Pressure:: 160/60 [place] [employer] Hypertension Guidelines Outcomes/Goals: Able to verbalize/achieve optimal blood pressure <130/80 and Incorporates diet changes & exercise for blood pressure control by DC Interventions/plan: Instruct on optimal blood pressure, hypertension & medications and Instruct on effects of sodium, alcohol, stress, exercise &hypertension 30 day Reassessments:: Progressing Tobacco Cessation Referral Smoking Cessation Referral:: No Individual Education/Counseling:: No Education Schedule Given:: Yes Psychosocial - 30-Day Assess Target Goals Target Goals Referral to Behavioral Health PS - Interventions: Yes: Attend Stress Management Classes and No: Referral to Behavioral Health if PHQ-9 score >9:, No: Referral to [facility] and No: Referral to Physician if PHQ-9 if score is 5-9: Outcomes/Goals: See list Psychosocial Outcomes/Goals:: ID's personal stressors & 2 strategies to manage stress by discharge Psychosocial - 60-Day Assess VIsit Date of Eval: 08/11/23 Session #:: 27 Not Applicable: Yes History of previous Mental disease:: No Target Goals Target Goals Psychosocial Test Tool Used:: PHQ-9 Questionnaire phq-9 Severity Referral to Behavioral Health PS - Interventions: Yes: Attend Stress Management Classes and No: Referral to Behavioral Health if PHQ-9 score >9:, No: Referral to [facility] and No: Referral to Physician if PHQ-9 if score is 5-9: Outcomes/Goals: See list Psychosocial Outcomes/Goals:: ID's personal stressors & 2 strategies to manage stress by discharge Intervention/Plan: See List Interventions/Plan:: Assess stressors,coping strategies & signs of derpression on admission, Instruct/assist pt to develop coping & personal stress Mgt strategies, Instruct patient to recognize signs & symptoms of depression and Instruct patient to recog 30-day Reassessments: 30 day Reassessments:: Met Psychosocial - 90-Day Assess Target Goals Target Goals Referral to Behavioral Health PS - Interventions: Yes: Attend Stress Management Classes and No: Referral to Behavioral Health if PHQ-9 score >9:, No: Referral to [facility] and No: Referral to Physician if PHQ-9 if score is 5-9: Psychosocial - Final Assessmen Target Goals Target Goals Referral to Behavioral Health PS - Interventions: Yes: Attend Stress Management Classes and No: Referral to Behavioral Health if PHQ-9 score >9:, No: Referral to [facility] and No: Referral to Physician if PHQ-9 if score is 5-9: Nutrition - 90-Day Assessment Weight Mgt (Other Care) Height: 5 ft 2 in Weight:: 163 lb BMI: 29.8 Nutrition - Final Assessment Weight Mgt (Other Care) Height: 5 ft 2 in Weight:: 163 lb BMI: 29.8
[2023-08-11 09:31] VITALS: BP 130/52
[2023-08-11 09:38] VITALS: BP 130/52; BP 160/60; BMI 29.8
== END 2023-08-24 23:59 ==
LOC: CR 11:15
PROVIDERS: PCP Family Medicine; Referring Provider Internal Medicine Interventional Cardiology; Visit Provider Internal Medicine Interventional Cardiology
DX: I21.4 Non-ST elevation (NSTEMI) myocardial infarction (principal); Z95.5 Presence of coronary angioplasty implant and graft; I25.10 Atherosclerotic heart disease of native coronary artery without angina pectoris
CPT/HCPCS: 93798

== ENCOUNTER → 2023-10-11 | Outpatient (CLI) | payer MEDICARE, OTHER, SELFPAY ==
[2023-08-11 09:38] VITALS: BMI 29.8
[2023-10-11 12:38] LABS: Hemoglobin 13.4 g/dL (12.0-15.0); Mean Corp Hgb Conc 32.7 g/dL (32-36); Mean Corpuscular Hgb 29.3 pg (27.0-32.0); Mean Corpuscular Volume 89.5 fL (81-99); Mean Platelet Vol. 9.2 fl (6.2-12.0); Platelet Count 221 K/mm3 (150-450); RBC Distribution Width CV 13.6 % (11.6-14.6); RBC Distribution Width SD 44.3 fl (35.1-43.9); Red Blood Count 4.58 M/mm3 (4.2-5.4); White Blood Count 4.9 K/mm3 (4.4-11.0)
[2023-10-11 21:27] LABS: ALB/GLOB Ratio 1.1 RATIO (0.9-2.4); AST(SGOT) 18 U/L (15-37); Alanine Aminotransfer ALT/SGPT 22 U/L (13-56); Albumin, Serum 3.5 g/dL (3.2-5.0); Alkaline Phosphatase 70 U/L (45-117); Anion Gap 8 (5-15); BUN 22 mg/dL (7-18); BUN/Creat Ratio 23.8 RATIO (10-20); CPK Total, Creatine Kinase 64 U/L (26-192); Calcium,Total 9.6 mg/dL (8.5-10.1); Chloride 109 mmol/L (98-107); Cholesterol 222 mg/dL (200); Creatinine, Serum 0.93 mg/dL (0.55-1.02); EST Glomerular Filtration Rate 62 mL/min (>60); Est Glom Filt Rate - Afr Amer 75 mL/min (>60); Globulin 3.3 g/dL (2.2-4.2); Glucose 108 mg/dL (74-106); High Density Lipoprotein 50 mg/dL; Potassium 4.5 mmol/L (3.5-5.1); Protein, Total 6.8 g/dL (6.4-8.2); Sodium Level 139 mmol/L (136-145); Triglycerides 243 mg/dL; Very Low Density Lipoprotein 49 mg/dL (5-40)
== END | disposition home or self-care (01) ==
LOC: LAB 11:17
PROVIDERS: PCP Family Medicine; Referring Provider Nurse Practitioner Gerontology; Visit Provider Internal Medicine Cardiovascular Disease
DX: I10 Essential (primary) hypertension (principal); I35.1 Nonrheumatic aortic (valve) insufficiency; I25.10 Atherosclerotic heart disease of native coronary artery without angina pectoris; I25.5 Ischemic cardiomyopathy; G31.84 Mild cognitive impairment of uncertain or unknown etiology
CPT/HCPCS: 36415; 80053; 80061; 82550; 85027

== ENCOUNTER → 2023-11-17 | Outpatient (CLI) | payer MEDICARE, OTHER, SELFPAY ==
[2023-08-11 09:38] VITALS: BMI 29.8
[2023-11-17 15:29] LABS: Vitamin B12 430 pg/mL (211-911)
[2023-11-17 15:44] LABS: ALB/GLOB Ratio 1.2 RATIO (0.9-2.4); AST(SGOT) 15 U/L (15-37); Alanine Aminotransfer ALT/SGPT 20 U/L (13-56); Albumin, Serum 3.6 g/dL (3.2-5.0); Alkaline Phosphatase 83 U/L (45-117); Anion Gap 7 (5-15); BUN 20 mg/dL (7-18); Calcium,Total 9.1 mg/dL (8.5-10.1); Chloride 108 mmol/L (98-107); Creatinine, Serum 0.91 mg/dL (0.55-1.02); EST Glomerular Filtration Rate 63 mL/min (>60); Est Glom Filt Rate - Afr Amer 77 mL/min (>60); Free T3 2.1 pg/mL (2.18-3.98); Globulin 3.1 g/dL (2.2-4.2); Glucose 102 mg/dL (74-106); Potassium 4.6 mmol/L (3.5-5.1); Protein, Total 6.7 g/dL (6.4-8.2); Sodium Level 137 mmol/L (136-145); T4 Free Direct 1.39 ng/dL (0.76-1.46); Thyroid Stim Hormone (TSH) 2.06 uIU/mL (0.358-3.74)
[2023-11-22 14:08] LABS: Vitamin B1, Thiamine 156.4 nmol/L (66.5-200.0)
== END | disposition home or self-care (01) ==
LOC: MTLAB 11:45
PROVIDERS: Psychiatry & Neurology Neurology; PCP Family Medicine; Referring Provider Family Medicine; Visit Provider Family Medicine
DX: Z51.81 Encounter for therapeutic drug level monitoring (principal); E03.9 Hypothyroidism, unspecified
CPT/HCPCS: 36415; 80053; 82607; 82746; 84425; 84439; 84443; 84481

== ENCOUNTER → 2024-01-11 | Outpatient (CLI) | payer MEDICARE, OTHER, SELFPAY ==
[2023-08-11 09:38] VITALS: BMI 29.8
[2024-01-11 11:22] LABS: AST(SGOT) 14 U/L (15-37); Alanine Aminotransfer ALT/SGPT 19 U/L (13-56); Albumin, Serum 3.5 g/dL (3.2-5.0); Alkaline Phosphatase 81 U/L (45-117); Bilirubin, Direct 0.15 mg/dL (0.00-0.30); Cholesterol 179 mg/dL (200); Globulin 3.3 g/dL (2.2-4.2); High Density Lipoprotein 55 mg/dL; Protein, Total 6.8 g/dL (6.4-8.2); Triglycerides 190 mg/dL; Very Low Density Lipoprotein 38 mg/dL (5-40)
== END | disposition home or self-care (01) ==
LOC: LAB 09:53
PROVIDERS: PCP Family Medicine; Referring Provider Internal Medicine Cardiovascular Disease; Visit Provider Internal Medicine Cardiovascular Disease
DX: E78.5 Hyperlipidemia, unspecified (principal); I25.10 Atherosclerotic heart disease of native coronary artery without angina pectoris; Z95.5 Presence of coronary angioplasty implant and graft
CPT/HCPCS: 36415; 80061; 80076

== ENCOUNTER → 2024-01-17 | Outpatient (CLI) | payer MEDICARE, OTHER, SELFPAY ==
[2023-08-11 09:38] VITALS: BMI 29.8
--- NOTE | 2024-01-17 11:49 | BI_ITS ---
MAMMOGRAPHY - BILATERAL SCREENING REASON FOR EXAM: Female, 78 years old. Routine annual screening examination. PERTINENT HISTORY: Aunt with breast cancer. History of remote right stereotactic breast biopsy. TECHNIQUE: Digital bilateral breast nica (3D mammographic acquisition) in the CC and MLO projections. 2-D mediolateral oblique (MLO) and craniocaudad (CC) views of both breasts were obtained. CAD: Full Field Digital Mammography with Computer Added Detection was performed. COMPARISON: Comparison is made with prior study dated January 15, 2023 and January 13, 2022. FINDINGS: Breast Composition: There are scattered areas of fibroglandular density. There are no dominant masses or suspicious calcifications. Stable bilateral fat-containing axillary lymph nodes. A tissue clip marker is seen within the central lateral aspect of the right No other significant abnormalities are identified. There has been no significant change since the prior study. BI/SCRN MAMM (CAD)W/NICA BILAT IMPRESSION: Stable bilateral screening mammogram. Yearly follow-up mammogram recommended. (A) ASSESSMENT CATEGORY: BIRADS Category 2: Benign. A letter regarding these results will be sent to the patient by the facility within 30 days. Approximately 10% of breast cancers are not detected by mammography. A normal mammogram should not delay biopsy of a clinically suspicious abnormality. [id number] Electronically Signed: Matthisa Holland MD at 12:23 EDT ,
== END | disposition home or self-care (01) ==
LOC: OPBI 11:48
PROVIDERS: PCP Family Medicine; Referring Provider Family Medicine; Visit Provider Family Medicine
DX: Z12.31 Encounter for screening mammogram for malignant neoplasm of breast (principal)
CPT/HCPCS: 77063; 77067

== ENCOUNTER → 2024-03-21 | Outpatient (CLI) | payer MEDICARE, OTHER, SELFPAY ==
[2023-08-11 09:38] VITALS: BMI 29.8
--- NOTE | 2024-03-21 12:18 | CT_ITS ---
INDICATION: Knocking sensation in head EXAMINATION: CT BRAIN - CT Head or Brain WO/W Contrast Injection TECHNIQUE: Serial CT axial images were obtained of the head without intravenous contrast. A radiation dose optimization technique was used for this scan. COMPARISON: 05/29/[address] Findings: Serial CT axial images of the head both with and without intravenous contrast. IV contrast: 100 cc Isovue-300 IV. BRAIN PARENCHYMA: Diffuse periventricular hypoattenuation likely chronic white matter ischemic changes. Mild diffuse volume loss. No evidence of intraparenchymal hemorrhage or hyperattenuating extra-axial fluid collection. No abnormal enhancement. VASCULAR STRUCTURES: Atherosclerotic vascular calcifications. 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 BONES: Paranasal sinuses are clear. SCALP/REMAINING SOFT TISSUES: Unremarkable. 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 No acute intracranial hemorrhage. No abnormal enhancement. Electronically Signed: Vin Parrish MD at 7:04 EST ,
[2024-03-21 12:46] LABS: CREATININE FINGERSTICK < 1.0 mg/dL (0.55-1.02); EGFR FINGERSTICK > 60.0000 mL/min (>60)
== END | disposition home or self-care (01) ==
LOC: CT 12:15
PROVIDERS: PCP Family Medicine; Referring Provider Internal Medicine Cardiovascular Disease; Visit Provider Internal Medicine Cardiovascular Disease
DX: G31.84 Mild cognitive impairment of uncertain or unknown etiology (principal)
CPT/HCPCS: 70470; Q9967

== ENCOUNTER → 2024-04-04 | Outpatient (CLI) | payer MEDICARE, OTHER, SELFPAY ==
[2023-08-11 09:38] VITALS: BMI 29.8
--- NOTE | 2024-04-04 12:45 | CDU_ITS ---
Reason For Study: Atherosclerosis / Ringing in ears Rt. Velocities/BP Lt. Velocities/BP Prox CCA 40.1/9.3 cm/sec. Prox CCA 40.0/8.6 cm/sec. Mid CCA 52.3/10.6 cm/sec. Mid CCA 57.0/12.0 cm/sec. Dist CCA 60.9/10.6 cm/sec. Dist CCA 55.9/8.7 cm/sec. Prox ICA 63.4/10.6 cm/sec. Prox ICA 39.5/13.1 cm/sec. Mid ICA 65.8/16.7 cm/sec. Mid ICA 55.9/15.3 cm/sec. Dist ICA 59.7/16.7 cm/sec. Dist ICA 54.7/14.5 cm/sec. Rt. ICA/CCA = 1.3. Lt. ICA/CCA = 1.0. Prox ECA 79.9/4.3 cm/sec. Prox ECA 77.9/6.5 cm/sec. Rt. Vert. 41.5/10.3 cm/sec. Lt. Vert. 24.6/2.5 cm/sec. Right Extracranial There is heterogeneous, irregular atherosclerotic plaque noted in the right common carotid artery. There is heterogeneous, irregular atherosclerotic plaque noted in the right internal carotid artery. There is intimal thickening but no significant atherosclerotic plaque noted in the right external carotid artery. Antegrade flow is noted in the right vertebral artery. Left Extracranial There is homogeneous, smooth atherosclerotic plaque noted in the left common carotid artery. There is heterogeneous, irregular atherosclerotic plaque noted in the left internal carotid artery. There is heterogeneous, irregular atherosclerotic plaque noted in the left external carotid artery. Antegrade flow is noted in the left vertebral artery. Procedure Carotid Duplex [id number]. This is a Carotid Duplex examination using B-mode, color flow and specral Doppler. The exam was diagnostic. Exam performed in department. VL/Carotid Duplex Ultrasound Interpretation Summary Mild (<50%) stenosis right extracranial internal carotid. Mild (<50%) stenosis left extracranial internal carotid. Patent and antegrade vertebrals bilaterally. Ordering Physician: Bella Irving Referring Physician: Elis Cardenas Performed By: Josh Hinton RVT
--- NOTE | 2024-04-04 12:45 | ECHOD_ITS ---
Reason For Study: AORTIC VALVE INSUFFICIENCY Procedure This was a 2D Doppler, Color Flow transthoracic echocardiogram. Exam performed in department. Left Ventricle Mild concentric left ventricular hypertrophy. Normal LV size. The left ventricular ejection fraction is 65 %. Stage 1 diastolic dysfunction. Right Ventricle Normal right ventricle. Atria The left atrium is mildly enlarged. Normal right atrium. Mitral Valve Mild mitral annular calcification. Mild (1+) mitral valve insufficiency. Tricuspid Valve Mild tricuspid valve insufficiency. Normal pulmonary artery pressure. Aortic Valve Aortic valve sclerosis without stenosis. Mild aortic valve regurgitation. Pulmonic Valve The pulmonic valve is not well visualized. Trivial pulmonic valve insufficiency. Great Vessels Normal sized aortic root. Pericardium/Pleural No pericardial effusion. MMode/2D Measurements & Calculations LVIDd: 5.0 cm IVSd: 1.2 cm Ao root diam: 3.1 cm LVIDs: 2.9 cm LVPWd: 1.2 cm RVDd: 3.0 cm FS: 41.5 % LAV(MOD-bp): 31.4 ml LVAd ap4: 28.5 cm2 SV(MOD-sp4): 57.9 ml LAV(MOD-bp) Indexed: 17.7 ml/m2 LVLd ap4: 7.6 cm SI(MOD-sp4): 32.5 ml/m2 LAV(MOD-sp2): 29.8 ml EDV(MOD-sp4): 88.1 ml LAV(MOD-sp4): 34.5 ml EDV(sp4-el): 90.5 ml LVAs ap4: 15.4 cm2 LVLs ap4: 6.5 cm ESV(MOD-sp4): 30.2 ml ESV(sp4-el): 30.8 ml EF(MOD-sp4): 65.7 % EF(sp4-el): 66.0 % SV(sp4-el): 59.7 ml LA A4 area: 15.2 cm2 LA dimension(2D): 3.5 cm RA A4 area: 12.5 cm2 TAPSE: 1.9 cm Time Measurements MV dec time: 0.32 sec Doppler Measurements & Calculations MV E max romaine: 66.0 cm/sec Lat Peak E' Romaine: 6.4 cm/sec Med Peak E' Romaine: 4.4 cm/sec MV A max romaine: 80.1 cm/sec E/E' lat: 10.3 E/E' med: 15.1 MV E/A: 0.82 Ao V2 max: 138.2 cm/sec AI max romaine: 368.5 cm/sec LV V1 max: 97.6 cm/sec Ao max P.6 mmHg AI max P.3 mmHg LV V1 max P.8 mmHg AI dec slope: 213.7 cm/sec2 AI P1/2t: 504.9 msec PA V2 max: 88.3 cm/sec TR max romaine: 216.5 cm/sec TR max P.7 mmHg ECHO/Echo Complete Interpretation Summary Mild concentric left ventricular hypertrophy. The left ventricular ejection fraction is 65 %. Stage 1 diastolic dysfunction. Mild mitral annular calcification. Mild (1+) mitral valve insufficiency. Mild tricuspid valve insufficiency. Aortic valve sclerosis without stenosis. Mild aortic valve regurgitation. Ordering Physician: Bella Irving Referring Physician: ANNAMARIA WILLIAM Performed By: Bibi Huang, DONNIE
== END | disposition home or self-care (01) ==
LOC: CVS 12:41
PROVIDERS: PCP Family Medicine; Referring Provider Internal Medicine Cardiovascular Disease; Visit Provider Internal Medicine Cardiovascular Disease
DX: I35.1 Nonrheumatic aortic (valve) insufficiency (principal); R09.89 Other specified symptoms and signs involving the circulatory and respiratory systems; I25.10 Atherosclerotic heart disease of native coronary artery without angina pectoris; R42 Dizziness and giddiness; I79.8 Other disorders of arteries, arterioles and capillaries in diseases classified elsewhere
CPT/HCPCS: 93306; 93880

== ENCOUNTER → 2024-05-02 | Outpatient (CLI) | payer MEDICARE, OTHER, SELFPAY ==
[2023-08-11 09:38] VITALS: BMI 29.8
--- NOTE | 2024-05-02 13:45 | CT_ITS ---
INDICATION: Basilar artery stenosis EXAMINATION: CTA HEAD - CTA Head WO/W Contrast Injection TECHNIQUE: [place]/head CT angiogram protocol was performed following IV contrast. 3D reconstructions were reviewed. The protocol utilizes one or more of the following dose reduction techniques: automated exposure control, adjustment of mA and/or kV according to patient size, and/or use of iterative reconstruction technique. The protocol utilizes one or more of the following dose reduction techniques: automated exposure control, adjustment of mA and/or kV according to patient size, and/or use of iterative reconstruction technique. IV Contrast dosage and agent: 100 mL of Isovue-370. RADIATION DOSAGE (If Supplied By Facility): CTDIvol = ( 26.65 ) mGy, DLP = ( 1290.43 ) mGycm COMPARISON: CTA Head 03/21/2024. FINDINGS: --Anterior circulation: ICAs: Multiple calcified plaques in both internal carotid artery siphons without significant stenosis. ACAs: 50% segmental stenosis in the left anterior pericallosal artery. Small vessel plaques both anterior cerebral arteries. ACOM: Present. MCAs: Small vessel plaques in both middle cerebral arteries without significant stenosis. --Posterior circulation: PCOMs: Multiple small vessel plaques along the posterior communicating arteries. auto phone installer: Multiple small vessel plaques in both posterior cerebral arteries without significant stenosis. BASILAR ARTERY: At least 50% stenosis at the proximal basilar artery due to noncalcified plaques. VERTEBRAL ARTERIES: Segmental high-grade stenosis in the hypoplastic intradural segment of the left vertebral artery. Heavy calcified plaques along the dominant intradural segment of the right vertebral artery without significant stenosis.. No evidence of intracranial aneurysm or vascular malformation. CT/CTA Head W/WO Contrast IMPRESSION: 1. At least 50% stenosis in the proximal basilar artery due to noncalcified plaques but unchanged. 2. Segmental high-grade stenosis along the hypoplastic intradural segment of the left vertebral artery is unchanged. 3. Heavy calcified plaques along the dominant intradural segment of the right vertebral artery without significant stenosis. 4. 50% segmental stenosis along the left anterior pericallosal artery. 5. No significant stenosis of the middle cerebral arteries. 6. No significant interval change when compared to 03/21/2024. Electronically Signed: Arnulfo Green MD at 15:51 EST ,
[2024-05-02 14:13] LABS: CREATININE FINGERSTICK 1.2 mg/dL (0.55-1.02)
== END | disposition home or self-care (01) ==
LOC: CT 13:38
PROVIDERS: PCP Family Medicine; Referring Provider Psychiatry & Neurology Neurology; Visit Provider Psychiatry & Neurology Neurology
DX: I65.1 Occlusion and stenosis of basilar artery (principal)
CPT/HCPCS: 70496; Q9967

== ENCOUNTER → 2024-05-22 | Outpatient (CLI) | payer MEDICARE, OTHER, SELFPAY ==
[2023-08-11 09:38] VITALS: BMI 29.8
[2024-05-22 15:38] LABS: Absolute Lymphocyte Count 1.49 X10^3/uL (0.83-4.51); Absolute Neutrophil Count 3.4 X10^3/uL (2.0-7.7); Basophil# 0.08 X10^3/uL; Basophil% 1.4 % (0-1); Eosinophil# 0.17 X10^3/uL; Hematocrit 41.7 % (37-47); Hemoglobin 13.5 g/dL (12.0-15.0); Lymphocyte # 1.49 X10^3/ul (0.83-4.51); Lymphocyte % 26.3 % (19-41); Mean Corp Hgb Conc 32.4 g/dL (32-36); Mean Corpuscular Hgb 29.5 pg (27.0-32.0); Mean Corpuscular Volume 91.2 fL (81-99); Mean Platelet Vol. 9.4 fl (6.2-12.0); Monocyte# 0.48 X10^3/uL; Monocyte% 8.5 % (0-10); NRBC Flagged by Analyzer 0 % (0-5); Neutrophil # 3.43 X10^3/uL (2.7-7.7); Neutrophil % 60.4 % (47-70); Platelet Count 218 K/mm3 (150-450); RBC Distribution Width CV 13.2 % (11.6-14.6); RBC Distribution Width SD 44.8 fl (35.1-43.9); Red Blood Count 4.57 M/mm3 (4.2-5.4); White Blood Count 5.7 K/mm3 (4.4-11.0)
[2024-05-22 16:10] LABS: ALB/GLOB Ratio 1.1 RATIO (0.9-2.4); AST(SGOT) 17 U/L (15-37); Alanine Aminotransfer ALT/SGPT 24 U/L (13-56); Albumin, Serum 3.6 g/dL (3.2-5.0); Alkaline Phosphatase 88 U/L (45-117); Anion Gap 7 (5-15); BUN 20 mg/dL (7-18); BUN/Creat Ratio 22.5 RATIO (10-20); Calcium,Total 9.2 mg/dL (8.5-10.1); Chloride 110 mmol/L (98-107); Creatinine, Serum 0.89 mg/dL (0.55-1.02); EST Glomerular Filtration Rate 65 mL/min (>60); Est Glom Filt Rate - Afr Amer 79 mL/min (>60); Globulin 3.4 g/dL (2.2-4.2); Glucose 93 mg/dL (74-106); Potassium 4.3 mmol/L (3.5-5.1); Sodium Level 139 mmol/L (136-145)
== END | disposition home or self-care (01) ==
PROVIDERS: PCP Family Medicine; Visit Provider Family Medicine
DX: Z51.81 Encounter for therapeutic drug level monitoring (principal)
CPT/HCPCS: 36415; 80053; 85025

== ENCOUNTER → 2024-07-17 | Outpatient (CLI) | payer MEDICARE, OTHER, SELFPAY ==
[2023-08-11 09:38] VITALS: BMI 29.8
[2024-07-17 23:27] LABS: Cholesterol 177 mg/dL (<=200); High Density Lipoprotein 54 mg/dL; Low Density Lipoprotein Calc. 82 mg/dL; Triglycerides 204 mg/dL; Very Low Density Lipoprotein 41 mg/dL (5-40); cholesterol:hdl ratio screen 3.29
[2024-07-17 23:39] LABS: ALB/GLOB Ratio 1.6 RATIO (0.9-2.4); AST(SGOT) 18 U/L (<=31); Alanine Aminotransfer ALT/SGPT 16 U/L (<=34); Albumin, Serum 4.1 g/dL (3.4-4.8); Alkaline Phosphatase 91 U/L (35-104); Anion Gap 11 (5-15); BUN 21 mg/dL (4-19); BUN/Creat Ratio 24.5 RATIO (10-20); CPK Total, Creatine Kinase 61 U/L (24-195); Calcium,Total 9.1 mg/dL (7.6-11.0); Chloride 107 mmol/L (98-108); Creatinine, Serum 0.85 mg/dL (0.70-1.20); EST Glomerular Filtration Rate 69 (>60); Globulin 2.6 g/dL (2.2-4.2); Glucose 83 mg/dL (70-99); Potassium 4.2 mmol/L (3.3-5.1); Protein, Total 6.7 g/dL (5.9-8.4); Sodium Level 141 mmol/L (133-145); Total Bilirubin 0.41 mg/dL (0.00-1.30)
== END | disposition home or self-care (01) ==
LOC: MTLAB 09:12
PROVIDERS: PCP Family Medicine; Referring Provider Internal Medicine Cardiovascular Disease; Visit Provider Internal Medicine Cardiovascular Disease
DX: I10 Essential (primary) hypertension (principal); E78.5 Hyperlipidemia, unspecified; Z95.5 Presence of coronary angioplasty implant and graft; I25.5 Ischemic cardiomyopathy; I25.10 Atherosclerotic heart disease of native coronary artery without angina pectoris
CPT/HCPCS: 36415; 80053; 80061; 82550

== ENCOUNTER → 2024-09-27 | Outpatient (CLI) | payer MEDICARE, OTHER, SELFPAY ==
[2023-08-11 09:38] VITALS: BMI 29.8
--- NOTE | 2024-09-27 09:45 | RAD_ITS ---
PROCEDURE: ABDOMEN SINGLE VIEW 09/27/2024 REASON FOR EXAM: CONSTIPATION TECHNIQUE: Single view abdomen. COMPARISON: None. FINDINGS: The bowel gas pattern is nonobstructive. There are no abnormal soft tissue calcifications or radiopaque foreign bodies. There are no significant bony abnormalities. RAD/Abdomen Single View IMPRESSION: No evidence of acute abdominal pathology. Reading Location: [id number]
== END | disposition home or self-care (01) ==
LOC: RAD 09:45
PROVIDERS: PCP Family Medicine; Referring Provider Nurse Practitioner Acute Care; Visit Provider Nurse Practitioner Acute Care
DX: K59.00 Constipation, unspecified (principal)
CPT/HCPCS: 74018

== ENCOUNTER → 2024-11-07 | Outpatient (CLI) | payer MEDICARE, OTHER, SELFPAY ==
[2023-08-11 09:38] VITALS: BMI 29.8
[2024-11-07 12:33] LABS: AST(SGOT) 20 U/L (<=31); Alanine Aminotransfer ALT/SGPT 17 U/L (<=34); Albumin, Serum 4.1 g/dL (3.4-4.8); Alkaline Phosphatase 114 U/L (35-104); Anion Gap 12 (5-15); BUN 17 mg/dL (4-19); BUN/Creat Ratio 19.0 RATIO (10-20); Calcium,Total 9.1 mg/dL (7.6-11.0); Carbon Dioxide 22.7 mmol/L (21.0-32.0); Chloride 104 mmol/L (98-108); Globulin 2.5 g/dL (2.2-4.2); Glucose 98 mg/dL (70-99); Potassium 4.2 mmol/L (3.3-5.1)
[2024-11-08 16:09] LABS: Thyroglobulin, Serum Qt. < 0.1 ng/mL (1.5-38.5)
== END | disposition home or self-care (01) ==
LOC: MTLAB 10:07
PROVIDERS: PCP Family Medicine; Referring Provider Nurse Practitioner Adult Health; Visit Provider Nurse Practitioner Adult Health
DX: C73 Malignant neoplasm of thyroid gland (principal); E89.0 Postprocedural hypothyroidism
CPT/HCPCS: 36415; 80053; 84432; 84443; 86800

== ENCOUNTER → 2024-11-13 | Outpatient (CLI) | payer MEDICARE, OTHER, SELFPAY ==
[2023-08-11 09:38] VITALS: BMI 29.8
[2024-11-15 16:09] LABS: Thyroglobulin, Serum Qt. < 0.1 ng/mL (1.5-38.5)
== END | disposition home or self-care (01) ==
LOC: MTLAB 15:54
PROVIDERS: PCP Family Medicine; Referring Provider Internal Medicine Endocrinology, Diabetes & Metabolism; Visit Provider Internal Medicine Endocrinology, Diabetes & Metabolism
DX: R74.8 Abnormal levels of other serum enzymes (principal); E89.0 Postprocedural hypothyroidism
CPT/HCPCS: 36415; 84432; 84443; 86800

== ENCOUNTER 2024-11-23 15:17 | Observation (INO) | payer MEDICARE, OTHER, SELFPAY ==
[2023-08-11 09:38] VITALS: BMI 29.8
[2024-11-23] VITALS (13 sets, daily range): BP systolic 105–179; BP diastolic 50–80; PULSE 55–69; RESP 12–18; TEMP 36.6–37.1; O2SAT 94–99; BMI 34.4; BMI 35.7; BMI 33.5
--- NOTE | 2024-11-23 15:33 | EKG12_ITS ---
Test Reason : STROKE Blood Pressure : */* mmHG Vent. Rate : 57 BPM Atrial Rate : 57 BPM P-R Int : 224 ms QRS Dur : 88 ms QT Int : 414 ms P-R-T Axes : 47 24 93 degrees QTcB Int : 402 ms Sinus bradycardia with 1st degree A-V block Nonspecific ST and T wave abnormality Abnormal ECG Confirmed by JHOAN GOULD, AROLDO ([id number]), desk editor FRANK FU ([id number]) on 11/27/2024 8:22:49 AM Referred By: Confirmed By: AROLDO STAPLES MD
--- NOTE | 2024-11-23 15:33 | EKG12_ITS ---
Test Reason : STROKE Blood Pressure : */* mmHG Vent. Rate : 57 BPM Atrial Rate : 57 BPM P-R Int : 224 ms QRS Dur : 88 ms QT Int : 414 ms P-R-T Axes : 47 24 93 degrees QTcB Int : 402 ms Sinus bradycardia with 1st degree A-V block Nonspecific ST and T wave abnormality Abnormal ECG Confirmed by JHOAN GOULD, AROLDO ([id number]), editorial writer FRANK FU ([id number]) on 11/27/2024 8:22:49 AM Referred By: Confirmed By: AROLDO STAPLES MD
--- NOTE | 2024-11-23 15:34 | CT_ITS ---
PROCEDURE: STROKE CTA HEAD AND NECK W/CON 11/23/2024 REASON FOR EXAM: NEURO DEFICIT, ACUTE, STROKE SUSPECTED TECHNIQUE: STROKE CTA HEAD AND NECK W/CON Multiplanar Sagittal and Coronal images were obtained. 3D post processing was performed. CONTRAST: Isovue 370 VOLUME: 100 mL One or more dose reduction techniques were used (e.g., Automated exposure control, adjustment of the mA and/or kV according to patient size, use of iterative reconstruction technique). RADIATION DOSE SUMMARY: DLP: 789.21 mGycm COMPARISON: CTA head/neck exams dated 10/21/2022, 05/02/2024. FINDINGS: CTA HEAD: Patent intracranial arterial vasculature. No large vessel occlusion, high-grade flow-limiting stenosis, saccular aneurysm, or vascular malformation identified. origin of the right CHILDCARE AIDE with diminutive/hypoplastic connection to the basilar artery, a normal anatomic variant. Unchanged mild short-segment narrowings along the left PHYLICIA proximal A2 and more distal A3 segment/pericallosal artery. Focal calcified atherosclerotic plaque along the right MCA mid M1 segment with no significant stenosis. CTA NECK: Left vertebral artery originates directly from the aortic arch. Bilateral cervical carotid and vertebral arteries are patent. No aneurysm or dissection. Dominant right vertebral artery with diffusely hypoplastic left vertebral artery. Moderate-advanced stenosis at the distal left vertebral artery V4 segment, unchanged. Atherosclerotic plaque along the dominant right vertebral artery distal V4 segment without significant luminal narrowing. Mild-moderate short-segment stenosis of the proximal basilar artery, unchanged. Mild atheromatous plaque at the bilateral carotid artery bifurcations and along the carotid siphons without any significant luminal narrowing of the ICAs on either side. CT/STROKE CTA Head AND Neck W/Con IMPRESSION: 1. No acute intracranial or cervical large vessel arterial occlusion or high-gr matthew stenosis, no significant change from prior exam. 2. Dominant right vertebral artery with diffusely hypoplastic left vertebral ar corey, with moderate-advanced stenosis of the distal left V4 segment. Widely patent right vertebral artery. 3. Mild-moderate focal narrowing of the proximal basilar artery. No significan t ICA stenosis. 4. Mild short-segment narrowings along the left PHYLICIA A2-A3 segments. \ Reading Location: [id number]
--- NOTE | 2024-11-23 15:34 | CT_ITS ---
PROCEDURE: STROKE CTA HEAD AND NECK W/CON 11/23/2024 REASON FOR EXAM: NEURO DEFICIT, ACUTE, STROKE SUSPECTED TECHNIQUE: STROKE CTA HEAD AND NECK W/CON Multiplanar Sagittal and Coronal images were obtained. 3D post processing was performed. CONTRAST: Isovue 370 VOLUME: 100 mL One or more dose reduction techniques were used (e.g., Automated exposure control, adjustment of the mA and/or kV according to patient size, use of iterative reconstruction technique). RADIATION DOSE SUMMARY: DLP: 789.21 mGycm COMPARISON: CTA head/neck exams dated 10/21/2022, 05/02/2024. FINDINGS: CTA HEAD: Patent intracranial arterial vasculature. No large vessel occlusion, high-grade flow-limiting stenosis, saccular aneurysm, or vascular malformation identified. origin of the right CARVER HAND with diminutive/hypoplastic connection to the basilar artery, a normal anatomic variant. Unchanged mild short-segment narrowings along the left PHYLICIA proximal A2 and more distal A3 segment/pericallosal artery. Focal calcified atherosclerotic plaque along the right MCA mid M1 segment with no significant stenosis. CTA NECK: Left vertebral artery originates directly from the aortic arch. Bilateral cervical carotid and vertebral arteries are patent. No aneurysm or dissection. Dominant right vertebral artery with diffusely hypoplastic left vertebral artery. Moderate-advanced stenosis at the distal left vertebral artery V4 segment, unchanged. Atherosclerotic plaque along the dominant right vertebral artery distal V4 segment without significant luminal narrowing. Mild-moderate short-segment stenosis of the proximal basilar artery, unchanged. Mild atheromatous plaque at the bilateral carotid artery bifurcations and along the carotid siphons without any significant luminal narrowing of the ICAs on either side. CT/STROKE CTA Head AND Neck W/Con IMPRESSION: 1. No acute intracranial or cervical large vessel arterial occlusion or high-gr matthew stenosis, no significant change from prior exam. 2. Dominant right vertebral artery with diffusely hypoplastic left vertebral ar corey, with moderate-advanced stenosis of the distal left V4 segment. Widely patent right vertebral artery. 3. Mild-moderate focal narrowing of the proximal basilar artery. No significan t ICA stenosis. 4. Mild short-segment narrowings along the left PHYLICIA A2-A3 segments. \ Reading Location: [id number]
--- NOTE | 2024-11-23 15:34 | ED.RN ---
ED MD notified of pt's symptoms immediately after triaging
--- NOTE | 2024-11-23 15:34 | ED.RN ---
ED MD notified of pt's symptoms immediately after triaging
--- NOTE | 2024-11-23 15:36 | CT_ITS ---
PROCEDURE: STROKE BRAIN/HEAD WITHOUT CONT 11/23/2024 REASON FOR EXAM: NEURO DEFICIT, ACUTE, STROKE SUSPECTED TECHNIQUE: STROKE BRAIN/HEAD WITHOUT CONT Coronal and Sagittal reconstruction series were provided. One or more dose reduction techniques were used (e.g., Automated exposure control, adjustment of the mA and/or kV according to patient size, use of iterative reconstruction technique. RADIATION DOSE SUMMARY: CTDlvol: 44.99 mGy DLP: 863.6 mGycm COMPARISON: Prior study dated March 15, 2024. FINDINGS: Brain: Low density in the periventricular white matter suggests mild chronic small vessel ischemic changes. 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 CSF Spaces: Mild generalized cerebral atrophy Sinuses/Mastoids: Clear at visualized levels Bones: Unremarkable Atherosclerotic calcification of the cavernous portions of the internal carotid arteries bilaterally. CT/STROKE Brain/Head without Cont IMPRESSION: No acute abnormality is seen. Red Alert: Chronic changes The critical information above was relayed directly by me by telephone to Arnulfo Mcgrath on 11/23/2024 at 3:48 pm with readback verification. Reading Location: [id number]
--- NOTE | 2024-11-23 15:36 | CT_ITS ---
PROCEDURE: STROKE BRAIN/HEAD WITHOUT CONT 11/23/2024 REASON FOR EXAM: NEURO DEFICIT, ACUTE, STROKE SUSPECTED TECHNIQUE: STROKE BRAIN/HEAD WITHOUT CONT Coronal and Sagittal reconstruction series were provided. One or more dose reduction techniques were used (e.g., Automated exposure control, adjustment of the mA and/or kV according to patient size, use of iterative reconstruction technique. RADIATION DOSE SUMMARY: CTDlvol: 44.99 mGy DLP: 863.6 mGycm COMPARISON: Prior study dated March 15, 2024. FINDINGS: Brain: Low density in the periventricular white matter suggests mild chronic small vessel ischemic changes. 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 CSF Spaces: Mild generalized cerebral atrophy Sinuses/Mastoids: Clear at visualized levels Bones: Unremarkable Atherosclerotic calcification of the cavernous portions of the internal carotid arteries bilaterally. CT/STROKE Brain/Head without Cont IMPRESSION: No acute abnormality is seen. Red Alert: Chronic changes The critical information above was relayed directly by me by telephone to Arnulfo Mcgrath on 11/23/2024 at 3:48 pm with readback verification. Reading Location: [id number]
--- NOTE | 2024-11-23 16:15 | CHAPLAIN ---
Type of Pastoral Visit ___ Initial Visit ___ Follow-up Visit ___ On-call Visit ___ General Patient Visit ___ Spiritual Assessment ___ Family Conference ___ Bereavement _x__ Rapid Response ___ Code Blue ___ Other (describe below) Pastoral Care Referral From ___ Patient ___ Family ___ Nurse ___ Physician ___ Phys Ther ___ Motor Setter _x__ Other (describe below) Sacrament/Intervention _x__ Active listening ___ Anointing ___ Congregation ___ Bereavement ___ Communion ___ Vangie exploration ___ ___ Life review _x__ Prayer ___ Reconciliation ___ Sacrament of Sick _x__ Supportive presence ___ Wedding ___ Other (describe below) Pastoral Comments patient is a stroke alert and was taken to CT; spouse is sitting in the room and is engaged by the ladderman in conversation with offer of support; pt's spouse speaks mostly of his good health and how thankful he is for it; spouse denies having any needs and is hopeful for pt's outcome; spouse acknowledges age and past history of pt; spouse is welcoming of prayer but denies further needs
--- NOTE | 2024-11-23 16:15 | CHAPLAIN ---
Type of Pastoral Visit ___ Initial Visit ___ Follow-up Visit ___ On-call Visit ___ General Patient Visit ___ Spiritual Assessment ___ Family Conference ___ Bereavement _x__ Rapid Response ___ Code Blue ___ Other (describe below) Pastoral Care Referral From ___ Patient ___ Family ___ Nurse ___ Physician ___ Senior Care Assistant ___ Satellite Project Site Monitor _x__ Other (describe below) Sacrament/Intervention _x__ Active listening ___ Anointing ___ Islam ___ Bereavement ___ Communion ___ Vangie exploration ___ ___ Life review _x__ Prayer ___ Reconciliation ___ Sacrament of Sick _x__ Supportive presence ___ Wedding ___ Other (describe below) Pastoral Comments patient is a stroke alert and was taken to CT; spouse is sitting in the room and is engaged by the freight breaker in conversation with offer of support; pt's spouse speaks mostly of his good health and how thankful he is for it; spouse denies having any needs and is hopeful for pt's outcome; spouse acknowledges age and past history of pt; spouse is welcoming of prayer but denies further needs
--- NOTE | 2024-11-23 16:17 | EDS_ITS ---
HPI History of Present Illness Chief Complaint: Neuro S/Sx Narrative Narrative: 79-year-old female past medical history of previous stroke with residual facial asymmetry on the left side presents with hazy feeling of her right face. She states this started approximately an hour prior to arrival. 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 She denies any headaches. No paresthesias of arms or legs. She states that she was going to lay down for a nap to see if this feeling improved, but with her history of stroke, decided against it. She states she takes a blood thinner but cannot recall which one, but states Plavix sounds familiar to her. She denies taking Eliquis or Xarelto. No exacerbating or alleviating factors. [facility] Medical History Coronary artery disease Hypertension Dyslipidemia Mild cognitive impairment Ischemic cardiomyopathy Arteriosclerotic cardiovascular disease Hearing loss, left Chest pain Stroke/cerebrovascular accident Compression neuropathy of genitofemoral nerve Stress incontinence Wears hearing aid Wears glasses Post-menopausal Depression Thyroid disease Arthritis High cholesterol Non-smoker Leg cramps History of stress test History of echocardiogram Uterovaginal prolapse, incomplete TIA (transient ischemic attack) History of stroke Cancer GERD (gastroesophageal reflux disease) Menieres disease Corrales's palsy Aphthous ulcer of mouth Hypothyroidism Hyperlipidemia Benign essential hypertension Home Medications ?Medication ?Instructions ?Recorded ?Last Taken ?Type ascorbic acid (vitamin C) 500 mg 500 mg PO DAILY 05/21 Unknown History tablet (Vitamin C) cholecalciferol (vitamin D3) 125 125 mcg PO DAILY 04/27 10/16 Unknown History mcg (5,000 unit) tablet (Vitamin D3) aspirin 81 mg tablet,delayed 81 mg PO DAILY@0800 #90 t abs 03/13/23 05/12/23 Rx release Handicap Placard #1 ea 04/23/23 Unknown Rx levothyroxine 137 mcg tablet 137 mcg PO DAILY 04/23/23 Unknown History lisinopril 20 mg tablet 20 mg PO DAILY #90 tabs 09/24 11/16 Unknown Rx atorvastatin 40 mg tablet 40 mg PO QDAY #90 tabs 04/25 Unknown Rx atenolol 25 mg tablet 25 mg PO DAILY #90 tabs 07/25 08/18 Unknown Rx amlodipine 10 mg tablet 10 mg PO QDAY #90 tabs 08/24 Unknown Rx lysine 1,000 mg tablet 500 mg PO DAILY 09/26/24 Unk nown History zinc lozenges 15 mg 50 mg PO DAILY 09/26/24 Unkn own History clopidogrel 75 mg tablet 75 mg PO DAILY #90 TABLETS 0 11/08/24 Unknown Rx citalopram 10 mg tablet 10 mg PO DAILY 11/23/24 Unkn own History ticagrelor 90 mg tablet (Brilinta) 90 mg PO DAILY 10/26 05/20 Unknown History Allergy/AdvReac Type Severity Reaction Status Date / Time Sulfa (Sulfonamide Allergy Intermediate Rash Verified 11/23/24 15:20 Antibiotics) pepper (genus Capsicum) Allergy Swelling Verified 11/23/24 15:20 adhesive tape AdvReac Intermediate Rash Verified 11/23/24 15:20 Penicillins AdvReac Unknown Rash Verified 11/23/24 15:20 Family History Mother Heart disease Surgical History Stented coronary artery (05/12/23) Status post hysterectomy with oophorectomy Hx of surgical procedure H/O tubal ligation H/O dilation and curettage H/O breast biopsy Hx of colonoscopy History of thyroidectomy H/O hernia repair Social History Smoking Status: Never smoker alcohol intake: never substance use type: does not use caffeine: Yes Type: coffee Number of servings: 1 seatbelt use: always do you feel safe at home: Yes additional social history: - Nakina ROS ROS ED ROS Narrative Review of systems positive for strange feeling of right face as described by patient. No paresthesias of arms or legs. No headache. No chest pain or shortness of breath or other symptoms. EXAM Physical Exam Narrative Exam Narrative: Afebrile. Vital signs noted. Nontoxic-appearing. Cardiovascular examination feels regular rate and rhythm. Lungs are clear to auscultation bilaterally. Abdomen is soft and nontender with positive bowel sounds. Neurological examination shows chronic left-sided facial asymmetry/facial droop. NIH stroke scale 1 for this, but no right-sided facial droop. Const Vital Signs: 11/23/24 15:18 11/23/24 15:57 11/23/24 15:57 Temperature 98.2 F Temperature Source Oral Pulse Rate 69 55 L Respiratory Rate 18 12 Blood Pressure 179/70 H 105/66 Blood Pressure Mean 106 79 Pulse Ox 99 97 Oxygen Delivery Method Room Air Room Air Room Air 11/23/24 16:03 11/23/24 16:18 11/23/24 16:30 Temperature Temperature Source Pulse Rate 55 L 60 61 Respiratory Rate 16 14 16 Blood Pressure 105/66 139/64 H 154/80 H Blood Pressure Mean 79 89 104 Pulse Ox 97 98 97 Oxygen Delivery Method Room Air Room Air Room Air 11/23/24 17:00 11/23/24 17:06 Temperature Temperature Source Pulse Rate 62 62 Respiratory Rate 15 15 Blood Pressure 131/62 H 131/62 H Blood Pressure Mean 85 85 Pulse Ox 96 96 Oxygen Delivery Method Room Air Room Air MDM MDM MDM Narrative Medical decision making narrative: Differential diagnosis includes but not limited to TIA versus Corrales's palsy versu s stroke versus hypertensive emergency. Upon repeat examination after telestroke review, patient denies headaches continually so complex migraine is less likely. Additionally, she states that her symptoms are improving if not resolved. EKG was obtained and interpreted by myself independently as sinus bradycardia at 57 bpm without ectopy or acute ST changes. No STEMI. I reviewed the radiology report and spoke with the radiologist regarding the brain CT which shows no acute abnormality. In discussion with telestroke neurologist, delmer DOMINIQUE because she does not have a debilitating deficit, CTA will be performed and reviewed as well. She suggested observation for MRI given previous history of stroke. Basic laboratory work still pending. I reviewed the radiology report of the CTA and there is no large vessel occlusion. I reviewed her laboratory work and she has normal white count of 5.0 with hemoglobin 11.8, hematocrit 34.6, platelet count 179. INR 1.1 with a PTT 29. BMP grossly unremarkable. [id number] glucose 98. High-sensitivity troponin is 10. Patient discussed with Dr. Trimble for observation on the PCU. Disposition is assigned observation. Patient is in stable condition. History & Record Review Discussion w/independent historian: Patient Additional record(s) reviewed:: Prior ED visit Lab Data Attestation: I reviewed the patient's lab results. Labs: Laboratory Results - last 24 hr 11/23/24 11/23/24 15:50 15:56 WBC 5.0 RBC 3.80 L Hgb 11.8 L Hct 34.6 L MCV 91.1 MCH 31.1 MCHC 34.1 RDW Std Deviation 42.8 RDW Coeff of Jennifer 13.0 Plt Count 179 MPV 9.1 Immature Gran % (Auto) 0.800 Neut % (Auto) 57.1 Lymph % (Auto) 26.5 [place] % (Auto) 11.0 H Eos % (Auto) 3.6 Baso % (Auto) 1.0 Absolute Neuts (auto) 2.9 Absolute Lymphs (auto) 1.33 Nucleated RBC % 0 PT 14.0 INR 1.1 APTT 29.0 Sodium 136 Potassium 4.2 Chloride 106 Carbon Dioxide 21.7 Anion Gap 8 BUN 17 Creatinine 0.75 Estim Creat Clear Calc 57.03 Est GFR (MDRD) Non-Af 80 BUN/Creatinine Ratio 22.2 H Glucose 95 Calcium 8.3 Troponin T High Sens 10 POC Glucose 98 Radiography Diagnostic Testing: Clinical Impression(s) from Imaging Studies Head/Neck CTA 11/23/24 15:34 IMPRESSION: 1. No acute intracranial or cervical large vessel arterial occlusion or high- grade stenosis, no significant change from prior exam. 2. Dominant right vertebral artery with diffusely hypoplastic left vertebral artery, with moderate-advanced stenosis of the distal left V4 segment. Widely patent right vertebral artery. 3. Mild-moderate focal narrowing of the proximal basilar artery. No significant ICA stenosis. 4. Mild short-segment narrowings along the left PHYLICIA A2-A3 segments. \ Reading Location: [id number] Brain CT 11/23/24 15:36 IMPRESSION: No acute abnormality is seen. Red Alert: Chronic changes The critical information above was relayed directly by me by telephone to Arnulfo Perrin on 11/23/2024 at 3:48 pm with readback verification. Reading Location: [id number] Discharge Plan Dx/Rx/DC Orders Clinical Impression: Weakness on right side of face, History of stroke, Facial paresthesia Disposition Disposition: Acute Care Hospital [facility] NIHSS NIHSS 1a. Level of Consciousness: 0 - Alert; keenly responsive 1b. LOC Questions: 0 - Answers BOTH questions correctly 1c. LOC Commands: 0 - Performs BOTH tasks correctly 2. Best Gaze: 0 - Normal 3. Visual: 0 - No visual loss 4. Facial Palsy: 1 - Minor paralysis (flattened nasolabial fold, asymmetry on smiling) (Left, chronic) 5a. Left Arm: 0 - No drift; arm holds 90 (or 45) degrees for full 10 seconds 5b. Right Arm: 0 - No drift; arm holds 90 (or 45) degrees for full 10 seconds 6a. Left Le - No drift; leg holds 30-degree position for full 5 seconds 6b. Right Le - No drift; leg holds 30-degree position for full 5 seconds 7. Limb Ataxia: 0 - Absent 8. Sensory: 0 - Normal; no sensory loss 9. Best Language: 0 - No aphasia; normal 10. Dysarthria: 0 - Normal 11. Extinction and Inattention: 0 - No abnormality Total: 1 Stroke Questions Stroke Team Activated: Yes Reviewed Inclusion/Exclusion criteria: Yes IV Thrombolytic Administered: No No contraindications from thrombolytic administration: No (No debilitating deficit.)
[2024-11-23 16:33] LABS: Hematocrit 34.6 % (37-47); Hemoglobin 11.8 g/dL (12.0-15.0); Immature Granulocytes Count 0.040 X10^3/uL (0.0-0.0); Mean Corp Hgb Conc 34.1 g/dL (32-36); Mean Corpuscular Volume 91.1 fL (81-99); Mean Platelet Vol. 9.1 fl (6.2-12.0); NRBC Flagged by Analyzer 0 % (0-5); Platelet Count 179 K/mm3 (150-450); RBC Distribution Width CV 13.0 % (11.6-14.6); RBC Distribution Width SD 42.8 fl (35.1-43.9); Red Blood Count 3.80 M/mm3 (4.2-5.4); White Blood Count 5.0 K/mm3 (4.4-11.0)
[2024-11-23 16:44] LABS: Anion Gap 8 (5-15); BUN 17 mg/dL (4-19); BUN/Creat Ratio 22.2 RATIO (10-20); Calcium,Total 8.3 mg/dL (7.6-11.0); Carbon Dioxide 21.7 mmol/L (21.0-32.0); Chloride 106 mmol/L (98-108); Estimated Creatinine Clearance 57.03 ml/min (50-250); Glucose 95 mg/dL (70-99); Potassium 4.2 mmol/L (3.3-5.1); Troponin T High Sensitivity 10 ng/L (<=14)
[2024-11-23 17:07] LABS: Prothrombin Time (Protime)PT. 14.0 SECONDS (11.7-14.9)
[2024-11-23 17:08] LABS: Partial Thromboplast Time 29.0 Seconds (24.1-36.2)
--- NOTE | 2024-11-23 17:16 | PCM.HP.STD ---
[facility] - General General Date of Admission: 11/23/24 Date of Service: 11/23/24 Chief Complaint: Right facial numbness/tingling HPI Narrative ROBSON BROWNING, is a 79 F who presented to [facility] ED on 11/23/2024 with right facial numbness/tingling. 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 Patient lives at home with her . Today we will writing checks she states that her right face began to feel funny. She denied any arm or leg paresthesias or any motor symptoms. Denied any headache. Because of her vascular history, she came in for further evaluation. In the ED she was initially hypertensive to the 170s systolic but otherwise stable on room air at rest. CBC and BMP were benign. CT brain was unremarkable. CTA head/neck showed showed known stenosis of the proximal basilar artery and distal left vertebral artery that were unchanged. NIH score of 1. However, given her history neurology recommended admission and MRI brain for further evaluation. Hospitalist was then contacted for admission. I saw the patient at bedside in the ED, present. Patient was sitting back comfortably in bed, in no acute distress. She was alert and oriented x 3 though she did have some tangential speech noted with answering questions for me. She reported mild right facial numbness currently, improved from earlier today. Denied any other acute concerns currently. Will be admitted for further management. [facility] Medical History Coronary artery disease Hypertension Dyslipidemia Mild cognitive impairment Ischemic cardiomyopathy Arteriosclerotic cardiovascular disease Hearing loss, left Chest pain Stroke/cerebrovascular accident Compression neuropathy of genitofemoral nerve Stress incontinence Wears hearing aid Wears glasses Post-menopausal Depression Thyroid disease Arthritis High cholesterol Non-smoker Leg cramps History of stress test History of echocardiogram Uterovaginal prolapse, incomplete TIA (transient ischemic attack) History of stroke Cancer GERD (gastroesophageal reflux disease) Menieres disease Corrales's palsy Aphthous ulcer of mouth Hypothyroidism Hyperlipidemia Benign essential hypertension Home Medications ?Medication ?Instructions ?Recorded ?Last Taken ?Type ascorbic acid (vitamin C) 500 mg 500 mg PO DAILY 05/21/22 Unknown History tablet (Vitamin C) cholecalciferol (vitamin D3) 125 125 mcg PO DAILY 05/21/22 Unknown History mcg (5,000 unit) tablet (Vitamin D3) aspirin 81 mg tablet,delayed 81 mg PO DAILY@0800 #90 tabs 03/13/23 05/12/23 Rx release Handicap Yamilet #1 ea 04/23/23 Unknown Rx levothyroxine 137 mcg tablet 137 mcg PO DAILY 04/23/23 Unknown History lisinopril 20 mg tablet 20 mg PO DAILY #90 tabs 10/11/23 Unknown Rx atorvastatin 40 mg tablet 40 mg PO QDAY #90 tabs 04/25/24 Unknown Rx atenolol 25 mg tablet 25 mg PO DAILY #90 tabs 08/07/24 Unknown Rx amlodipine 10 mg tablet 10 mg PO QDAY #90 tabs 08/24/24 Unknown Rx lysine 1,000 mg tablet 500 mg PO DAILY 09/26/24 Unknown History zinc lozenges 15 mg 50 mg PO DAILY 09/26/24 Unknown History clopidogrel 75 mg tablet 75 mg PO DAILY #90 TABLETS 11/08/24 Unknown Rx citalopram 10 mg tablet 10 mg PO DAILY 11/23/24 Unknown History ticagrelor 90 mg tablet (Brilinta) 90 mg PO DAILY 11/23/24 Unknown History Allergy/AdvReac Type Severity Reaction Status Date / Time Sulfa (Sulfonamide Allergy Intermediate Rash Verified 11/23/24 15:20 Antibiotics) pepper (genus Capsicum) Allergy Swelling Verified 11/23/24 15:20 adhesive tape AdvReac Intermediate Rash Verified 11/23/24 15:20 Penicillins AdvReac Unknown Rash Verified 11/23/24 15:20 Family History Mother Heart disease Surgical History Stented coronary artery (05/12/23) Status post hysterectomy with oophorectomy Hx of surgical procedure H/O tubal ligation H/O dilation and curettage H/O breast biopsy Hx of colonoscopy History of thyroidectomy H/O hernia repair Social History Smoking Status: Never smoker alcohol intake: never substance use type: does not use caffeine: Yes Type: coffee Number of servings: 1 seatbelt use: always do you feel safe at home: Yes additional social history: - Holly ROS Constitutional Constitutional: Denies chills, fatigue, fever(s) or weakness Eyes Eyes: Denies change in vision Cardiovascular Cardiovascular: Denies chest pain Respiratory/Chest Respiratory/Chest: Denies shortness of breath at rest Gastrointestinal Gastrointestinal: Denies abdominal pain Neurologic Neurologic: Reports numbness and tingling; Denies abnormal speech, confusion, dizziness, focal weakness or headache(s) Vital Signs Vital Signs Vital Signs: 11/23/24 15:18 11/23/24 15:57 11/23/24 15:57 Temperature 98.2 F Temperature Source Oral Pulse Rate 69 55 L Respiratory Rate 18 12 Blood Pressure 179/70 H 105/66 Blood Pressure Mean 106 79 Pulse Ox 99 97 Oxygen Delivery Method Room Air Room Air Room Air 11/23/24 16:03 11/23/24 16:18 11/23/24 16:30 Temperature Temperature Source Pulse Rate 55 L 60 61 Respiratory Rate 16 14 16 Blood Pressure 105/66 139/64 H 154/80 H Blood Pressure Mean 79 89 104 Pulse Ox 97 98 97 Oxygen Delivery Method Room Air Room Air Room Air 11/23/24 17:00 11/23/24 17:06 Temperature Temperature Source Pulse Rate 62 62 Respiratory Rate 15 15 Blood Pressure 131/62 H 131/62 H Blood Pressure Mean 85 85 Pulse Ox 96 96 Oxygen Delivery Method Room Air Room Air Weight Weight: 88.6 kg Body Mass Index (BMI) 35.7 Physical Exam Const alert, oriented x3 and no apparent distress Constitutional Narrative: Elderly female, class I obesity, alert and oriented x 3 but mild tangential speech noted with answering questions, otherwise sitting back comfortably in bed and in no acute distress. General Appearance: cooperative and comfortable HEENT normocephalic, head/scalp atraumatic, hearing grossly normal bilaterally, nasal mucous membranes and turbinates normal and moist oral mucous membranes Eyes PERRL, EOMs intact bilaterally and conjunctivae normal Neck full ROM Chest inspection of chest normal Resp normal respiratory effort, normal air movement, no use of accessory muscles and clear to auscultation bilaterally Cardio regular rate, regular rhythm, no murmurs and peripheral pulses 2+ throughout GI normal to inspection, nondistended, normoactive bowel sounds, soft to palpation, non-tender and non-distended Back/Spine normal ROM Extremity normal to inspection, full ROM and no pedal edema Skin no rashes or lesions noted Neuro moves all extremities and no focal motor deficits Neuro Narrative: Chronic left facial droop noted. No right facial droop. Speech: speech normal Motor Exam: strength 5/5 throughout Psych mental status grossly normal Results Lab / Micro Data 11/23/24 15:50 11/23/24 15:50 Labs: Laboratory Results - last 24 hr 11/23/24 15:50: WBC 5.0, RBC 3.80 L, Hgb 11.8 L, Hct 34.6 L, MCV 91.1, MCH 31.1, MCHC 34.1, RDW Std Deviation 42.8, RDW Coeff of Jennifer 13.0, Plt Count 179, MPV 9.1, Immature Gran % (Auto) 0.800, Neut % (Auto) 57.1, Lymph % (Auto) 26.5, [place] % (Auto) 11.0 H, Eos % (Auto) 3.6, Baso % (Auto) 1.0, Absolute Neuts (auto) 2.9, Absolute Lymphs (auto) 1.33, Nucleated RBC % 0, PT 14.0, INR 1.1, APTT 29.0, Sodium 136, Potassium 4.2, Chloride 106, Carbon Dioxide 21.7, Anion Gap 8, BUN 17, Creatinine 0.75, Estim Creat Clear Calc 57.03, Est GFR (MDRD) Non-Af 80, BUN/Creatinine Ratio 22.2 H, Glucose 95, Calcium 8.3, Troponin T High Sens 10 11/23/24 15:56: POC Glucose 98 Imaging Radiology Impression Head/Neck CTA 11/23/24 15:34 IMPRESSION: 1. No acute intracranial or cervical large vessel arterial occlusion or high-grade stenosis, no significant change from prior exam. 2. Dominant right vertebral artery with diffusely hypoplastic left vertebral artery, with moderate-advanced stenosis of the distal left V4 segment. Widely patent right vertebral artery. 3. Mild-moderate focal narrowing of the proximal basilar artery. No significant ICA stenosis. 4. Mild short-segment narrowings along the left PHYLICIA A2-A3 segments. \ Reading Location: [id number] Brain CT 11/23/24 15:36 IMPRESSION: No acute abnormality is seen. Red Alert: Chronic changes The critical information above was relayed directly by me by telephone to Arnulfo Perrin on 11/23/2024 at 3:48 pm with readback verification. Reading Location: [id number] Assessment & Plan Assessment/Plan (1) Facial paresthesia: PLAN: Plan Patient is an 79-year-old female who presented to [facility] ED on 11/23/2024 for right facial numbness/tingling. 1. Right facial numbness/tingling, CVA rule out ? Admit under observation status to PCU. Neurology consulted. Presented with right facial numbness/tingling, otherwise asymptomatic. NIH score of 1. CT brain unremarkable. CTA head/neck stable from previous. He is on aspirin, Plavix and statin as below but cannot rule out TIA/CVA. MRI brain ordered. PT/OT/case management consulted. Lipid panel, A1c and TSH ordered. Other orders placed per stroke protocol order set. 2. Asymptomatic basilar artery stenosis ? Follows with neurology as below, and was evaluated by vascular surgery in April. Was having headache like symptoms and February [address] head/neck revealed a new severe focal stenosis of the basilar artery compared to CT scan from 17 months prior. Vascular surgery noted that it appears she has asymptomatic basilar artery stenosis at this time, given no recurrent CVA/TIA symptoms. Also noted that she has no significant extracranial carotid or vertebral artery disease on imaging. Recommended continuing aspirin, Plavix and high intensity statin. Vascular did discuss referring her to a neurointerventional specialist at [facility] for this but she declined the referral. 3. History of STEMI and CAD with stenting, chronic heart failure with recovered ejection fraction, hypertension, hyperlipidemia, mild AV regurgitation ? Follows with cardiology, last office visit in August. NSTEMI in February 2023 with PCI to the LAD. Had elective PCI to the proximal and distal left circumflex in April 2023. She was treated with Brilinta for period of time, then was switched back to Plavix. Most recent echo in March showed EF 65%, stage I diastolic dysfunction, mild AV regurgitation, no other concerning findings. Continue home aspirin, Plavix and statin. Holding home amlodipine, atenolol and lisinopril for permissive hypertension. 4. 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 Follows with Dr. Martinez with neurology, last office visit in June. 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 Diagnosed with M?ni?re's disease in September 2015 and treated with medical management at that time with improvement; no longer on any medications for this. Noted in June that patient has some difficulty with recall but remains independent in her daily activities, so neurology felt she has mild cognitive impairment but not dementia at this time. Depression symptoms have been fairly well-controlled. Continue home citalopram. Continue outpatient follow-up with neurology after discharge. 5. History of thyroid cancer s/p thyroidectomy ? TSH mildly elevated at 8 on admit. However, free T4 also very mildly elevated at 1.5. Continue home Synthroid. 6. Class I obesity ? BMI 33 on admit. Encouraged lifestyle modifications. Complicates hospital course and care. DVT prophylaxis: SCDs CODE STATUS: Full code, verified Expected disposition: Home, 1 to 2 days Total clinical time spent by myself addressing the patient's medical issues, reviewing all the data, and collaborating with patient's care team: 75 minutes. Charges/Coding Visit Charges Inpatient E&M: 43951 Init Hosp L3
--- NOTE | 2024-11-23 17:46 | CM.ED ---
Social work Reason for referral: stroke alert SW responded later to the stroke alert. By the point of SW arrival, patient was relieved to know patient had not had a stroke and would only be admitted to [facility] for observation. Patient stated having two earlier strokes and coming in due to today's symptoms feeling similar. Patient was talking normally to this SW and patient's was bedside. Active listening and supportive presence utilized. Robyn Chin, SKETCH LINER, ROUTE SUPERVISOR
--- NOTE | 2024-11-23 17:46 | CM.ED ---
Social work Reason for referral: stroke alert SW responded later to the stroke alert. By the point of SW arrival, patient was relieved to know patient had not had a stroke and would only be admitted to [facility] for observation. Patient stated having two earlier strokes and coming in due to today's symptoms feeling similar. Patient was talking normally to this SW and patient's was bedside. Active listening and supportive presence utilized. Robyn Chin, HEATING TECHNICIAN, PLASTER MECHANIC
--- NOTE | 2024-11-23 18:37 | CASEMGMT ---
Addendum entered by Robyn Chin 11/23/24 21:02: Admitting diagnosis: Facial paresthesia MARLENE Quarles, [employer]IVER Original Note: Care Management Face to Face with patient for initial transition planning/care coordination assessment in the ED. This telegraphic typewriter mechanic introduced self and role at [facility]. Patient alert and oriented. Patient willing to participate in assessment and is able to answer all questions appropriately. Patient's , Boy, bedside; permission given to speak in front of Boy. Care providers, pharmacy, and demographics verified. Admitting Diagnosis: Other diagnosis history: basilar artery stenosis, CAD with stenting, heart failure with recovered ejection fraction, hypertension, hyperlipidemia PCP: Ronald Specialists: Tammy, diesel mechanic construction in [place]. Preferred Pharmacy: [facility] Insurance: Medicare A B (primary). [employer] (secondary). Prescription Benefit: yes Living Will/HPOA: none on file. States these documents do exist, but patient's may not be able to bring them in without patient's help to find them. Reportedly, patient's is primary with patient's son, Elbert, secondary. LNOK: , Boy. Living Arrangements: lives with in a 2 story home, but first floor living. 1 step to enter from the front and 3-4 steps to enter from the back. Independent with all ADLs/IADLs prior to this. Transportation: patient drives DME: walker and cane, though patient does not use. Railings and grab bars reportedly around the home. HHC: denies SNF/Rehab: denies Community Resources: denies Patient goals: Patient wishes to discharge home, denies need for home health care at this time. Patient denies any further needs or concerns at this time. Disposition Plan: admission to acute; RN CM/SW to follow for discharge planning needs that may arise. MARLENE Quarles, [employer] DRIVER
--- NOTE | 2024-11-23 18:37 | CASEMGMT ---
Addendum entered by Robyn Chin 11/23/24 21:02: Admitting diagnosis: Facial paresthesia MARLENE Quarles, WILTON WEAVER Original Note: Care Management Face to Face with patient for initial transition planning/care coordination assessment in the ED. This health technical writer introduced self and role at [facility]. Patient alert and oriented. Patient willing to participate in assessment and is able to answer all questions appropriately. Patient's , Boy, bedside; permission given to speak in front of Boy. Care providers, pharmacy, and demographics verified. Admitting Diagnosis: Other diagnosis history: basilar artery stenosis, CAD with stenting, heart failure with recovered ejection fraction, hypertension, hyperlipidemia PCP: Ronald Specialists: Tammy, account financial manager in [place]. Preferred Pharmacy: [facility] Insurance: Medicare A B (primary). [employer] (secondary). Prescription Benefit: yes Living Will/HPOA: none on file. States these documents do exist, but patient's may not be able to bring them in without patient's help to find them. Reportedly, patient's is primary with patient's son, Elbert, secondary. LNOK: , Boy. Living Arrangements: lives with in a 2 story home, but first floor living. 1 step to enter from the front and 3-4 steps to enter from the back. Independent with all ADLs/IADLs prior to this. Transportation: patient drives DME: walker and cane, though patient does not use. Railings and grab bars reportedly around the home. HHC: denies SNF/Rehab: denies Community Resources: denies Patient goals: Patient wishes to discharge home, denies need for home health care at this time. Patient denies any further needs or concerns at this time. Disposition Plan: admission to acute; RN CM/SW to follow for discharge planning needs that may arise. MARLENE Quarles, WILTON WEAVER
[2024-11-23 19:53] LABS: Troponin T High Sens 2 HR 8 ng/L (<=14)
[2024-11-23] MEDS: MELATONIN 3 MG TABLET PO (21:14)
[2024-11-23 22:58] LABS: Troponin T High Sens 4 HR 7 ng/L (<=14)
[2024-11-24 01:12] VITALS: BMI 33.5
[2024-11-24 03:00] VITALS: PULSE 56
[2024-11-24 03:53] VITALS: BP 150/52; PULSE 55; RESP 16; TEMP 37; O2SAT 97
[2024-11-24 06:41] VITALS: O2SAT 95
[2024-11-24 06:59] LABS: Hematocrit 37.4 % (37-47); Hemoglobin 12.6 g/dL (12.0-15.0); Mean Corp Hgb Conc 33.7 g/dL (32-36); Mean Corpuscular Volume 91.4 fL (81-99); Mean Platelet Vol. 9.3 fl (6.2-12.0); Platelet Count 195 K/mm3 (150-450); RBC Distribution Width CV 13.2 % (11.6-14.6); RBC Distribution Width SD 44.3 fl (35.1-43.9); Red Blood Count 4.09 M/mm3 (4.2-5.4); White Blood Count 4.6 K/mm3 (4.4-11.0)
[2024-11-24 07:31] VITALS: BP 134/38; PULSE 56; RESP 14; TEMP 36.7; O2SAT 98
[2024-11-24 08:06] LABS: Anion Gap 14 (5-15); BUN 19 mg/dL (4-19); BUN/Creat Ratio 24.1 RATIO (10-20); Calcium,Total 9.1 mg/dL (7.6-11.0); Carbon Dioxide 20.0 mmol/L (21.0-32.0); Chloride 104 mmol/L (98-108); Cholesterol 168 mg/dL (<=200); Estimated Creatinine Clearance 55.18 ml/min (50-250); Glucose 94 mg/dL (70-99); Low Density Lipoprotein Calc. 75 mg/dL; Potassium 4.1 mmol/L (3.3-5.1); Triglycerides 227 mg/dL; Very Low Density Lipoprotein 45 mg/dL (5-40); cholesterol:hdl ratio screen 3.50
--- NOTE | 2024-11-24 08:20 | ECHOD_ITS ---
Reason For Study Reason For Study: TIA/CVA Procedure This was a 2D Doppler, Color Flow transthoracic echocardiogram. The study was technically difficult. Due to body habitus. Exam performed portable in patient room. Left Ventricle Normal left ventricle. Normal LV wall thickness. Left ventricular systolic function is normal. No regional wall motion abnormalities noted. Right Ventricle Normal right ventricular size and function. Tricuspid Valve The tricuspid valve is not well visualized. Normal tricuspid valve. Trivial tricuspid valve insufficiency. Unable to estimate RV systolic pressure due to insufficient tricuspid regurgitant envelope. Aortic Valve Mild diffuse aortic valve thickening. There is no aortic stenosis. Moderate (2+) anteriorly directed aortic valve insufficiency. Pulmonic Valve The pulmonic valve is not well visualized. Great Vessels The aortic root is not well visualized. Pericardium/Pleural No pericardial effusion. Epicardial fat. MMode/2D Measurements & Calculations LVIDd: 4.3 cm IVSd: 0.93 cm Ao root diam: 3.3 cm LVIDs: 3.1 cm LVPWd: 0.94 cm FS: 27.3 % LAV(MOD-bp): 48.5 ml LVAd ap4: 25.5 cm2 LVAd ap2: 16.4 cm2 LAV(MOD-bp) Indexed: 26.3 ml/m2 LVLd ap4: 7.8 cm LVLd ap2: 7.1 cm LAV(MOD-sp2): 47.1 ml EDV(MOD-sp4): 69.6 ml EDV(MOD-sp2): 32.2 ml LAV(MOD-sp4): 47.1 ml EDV(sp4-el): 71.2 ml EDV(sp2-el): 32.1 ml LVAs ap4: 13.7 cm2 LVAs ap2: 8.8 cm2 LVLs ap4: 6.6 cm LVLs ap2: 6.1 cm ESV(MOD-sp4): 24.2 ml ESV(MOD-sp2): 11.2 ml ESV(sp4-el): 23.9 ml ESV(sp2-el): 10.7 ml EF(MOD-sp4): 65.2 % EF(MOD-sp2): 65.4 % EF(sp4-el): 66.4 % SV(MOD-sp4): 45.3 ml SV(MOD-sp2): 21.1 ml SV(sp4-el): 47.3 ml SI(MOD-sp4): 24.6 ml/m2 SI(MOD-sp2): 11.4 ml/m2 LA dimension(2D): 4.0 cm LA A4 area: 16.7 cm2 RA A4 area: 12.9 cm2 TAPSE: 2.3 cm Time Measurements MV dec time: 0.27 sec Doppler Measurements & Calculations MV E max romaine: 64.2 cm/sec Lat Peak E' Romaine: 6.9 cm/sec Med Peak E' Romaine: 5.6 cm/sec MV A max romaine: 74.4 cm/sec E/E' lat: 9.3 E/E' med: 11.5 MV E/A: 0.86 MV V2 max: 84.1 cm/sec MV P1/2t max romaine: 64.7 cm/sec Ao V2 max: 177.9 cm/sec MV max P.8 mmHg MV P1/2t: 77.8 msec Ao max P.7 mmHg MV V2 mean: 44.9 cm/sec MV dec slope: 243.5 cm/sec2 Ao V2 mean: 113.7 cm/sec MV mean P.97 mmHg Ao mean P.0 mmHg MV V2 VTI: 25.4 cm MVA(P1/2t): 2.8 cm2 Ao V2 VTI: 35.0 cm AV (velocity ratio): 0.62 AI max romaine: 329.3 cm/sec LV V1 max: 107.6 cm/sec PA V2 max: 110.2 cm/sec AI max P.4 mmHg LV V1 max P.6 mmHg PA V2 mean: 71.1 cm/sec AI dec slope: 173.6 cm/sec2 LV V1 mean P.1 mmHg AI P1/2t: 555.5 msec LV V1 mean: 66.6 cm/sec LV V1 VTI: 21.7 cm ECHO/Echo Complete Interpretation Summary Normal left ventricular size, wall thickness, there is mild concentric LVH, no regional wall motion normality, normal LVEF with estimated ejection fraction of 55 to 60%. Grade 1 diastolic dysfunction. Normal right ventricular size and function. Mild diffuse aortic valve thickening. Moderate (2+) centrally directed aortic valve insufficiency, with pressure half -time of 344 ms. Ordering Physician: Lynne Tabares Referring Physician: Elis Cardenas Performed By: Rosanne Hays, DONNIE, RVT
[2024-11-24] MEDS: Aspirin E.C. 81 MG Tablet PO (09:09)
[2024-11-24 10:01] VITALS: BP 136/49; PULSE 63; RESP 16; TEMP 37.1; O2SAT 98
[2024-11-24 10:59] VITALS: BMI 33.5
[2024-11-24 11:02] VITALS: BMI 33.5
--- NOTE | 2024-11-24 12:21 | CASEMGMT ---
Social Work Pt negative for Stroke therefore PHQ9 not completed. Shante Ugarte, FILM OR TAPE LIBRARIAN
--- NOTE | 2024-11-24 12:21 | CASEMGMT ---
Social Work Pt negative for Stroke therefore PHQ9 not completed. Shante Ugarte, GEOTECHNICAL ENGINEERING TECHNICIAN
--- NOTE | 2024-11-24 12:48 | NEURO.CONS ---
Assessment and Plan: Neuro Assessment/Plan ROBSON BROWNING, is a 79 woman with history of basilar stenosis, CAD, on ASA/Plavix/Statin, who presented to [facility] ED on 11/23/2024 with transient weird sensation in the R side of her face. SBP upon presentation is 179. MRI brain with no acute findings LDL 75 Unsure of etiology, could be related to blood pressure elevation SBP 179 since patient says this is very unusual for her.. Recommend blood pressure management With the description she had, less likely TIA. However she is already on ASA/Plavix/statin Risk factor management: BP <130/90, Statin for LDL <70, diabetes management with A1C< 7%, no smoking, and alcohol in moderation. F/u with PCP in 2 weeks. I personally attended this patient and spent a total time of 45 minutes evaluating this patient including clinical assessment, review of chart, medical history imaging, and determining appropriate treatment and workup. HPI Consult Data Date of Consult: 11/24/24 HPI Narrative HPI Narrative: ROBSON BROWNING, is a 79 F who presented to [facility] ED on 11/23/2024 with right facial numbness/tingling. 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 Patient lives at home with her . Yesterday, while writing checks, she had this weird feeling in the R side of her face, she is unsure how to describe it, it was not tingling, it was not numbness. It felt different. It happened suddenly. It stayed there for an hour, shortly after she arrived to the hospital, it disappeared, No headache, no blurry vision. She has no history of migraines. In the ER, SBP 179 CTH with no acute findings CTA head/neck showed known stenosis of the proximal basilar artery and distal left vertebral artery that were unchanged. In the ER her facial numbness improved from earlier MRI brain with no acute findings She doesn?t check her blood pressure at home, but she reports when she goes to the doctor?s office her BP is usually good she doesn?t remember the numbers but they tell her it is good. PHYSICAL EXAM Exam performed with help of the nurse/FREDY present with patient on Tele site NEURO: AAOx3, follows commands, no aphasia/dysarthria. EOMI, no gaze preference/nystagmus. Face asymmetric with R facial weakness which Is baseline for her, Intact facial sensation. Head turning intact. Sensation: intact to light touch all over Motor: All extremities antigravity Coordination: FTN intact bilaterally PFSH Medical History Coronary artery disease Hypertension Dyslipidemia Mild cognitive impairment Ischemic cardiomyopathy Arteriosclerotic cardiovascular disease Hearing loss, left Chest pain Stroke/cerebrovascular accident Compression neuropathy of genitofemoral nerve Stress incontinence Wears hearing aid Wears glasses Post-menopausal Depression Thyroid disease Arthritis High cholesterol Non-smoker Leg cramps History of stress test History of echocardiogram Uterovaginal prolapse, incomplete TIA (transient ischemic attack) History of stroke Cancer GERD (gastroesophageal reflux disease) Menieres disease Corrales's palsy Aphthous ulcer of mouth Hypothyroidism Hyperlipidemia Benign essential hypertension Home Medications ?Medication ?Instructions ?Recorded ?Last Taken ?Type ascorbic acid (vitamin C) 500 mg 500 mg PO DAILY 05/21/22 Unknown History tablet (Vitamin C) cholecalciferol (vitamin D3) 125 125 mcg PO DAILY 05/21/22 Unknown History mcg (5,000 unit) tablet (Vitamin D3) aspirin 81 mg tablet,delayed 81 mg PO DAILY@0800 #90 tabs 03/13/23 05/12/23 Rx release Handicap Placard #1 ea 04/23/23 Unknown Rx levothyroxine 137 mcg tablet 137 mcg PO DAILY 04/23/23 Unknown History lisinopril 20 mg tablet 20 mg PO DAILY #90 tabs 10/11/23 Unknown Rx atorvastatin 40 mg tablet 40 mg PO QDAY #90 tabs 04/25/24 Unknown Rx atenolol 25 mg tablet 25 mg PO DAILY #90 tabs 08/07/24 Unknown Rx amlodipine 10 mg tablet 10 mg PO QDAY #90 tabs 08/24/24 Unknown Rx lysine 1,000 mg tablet 500 mg PO DAILY 09/26/24 Unknown History zinc lozenges 15 mg 50 mg PO DAILY 09/26/24 Unknown History clopidogrel 75 mg tablet 75 mg PO DAILY #90 TABLETS 11/08/24 Unknown Rx citalopram 10 mg tablet 10 mg PO DAILY 11/23/24 Unknown History ticagrelor 90 mg tablet (Brilinta) 90 mg PO DAILY 11/23/24 Unknown History Allergy/AdvReac Type Severity Reaction Status Date / Time Sulfa (Sulfonamide Allergy Intermediate Rash Verified 11/23/24 15:20 Antibiotics) pepper (genus Capsicum) Allergy Swelling Verified 11/23/24 15:20 adhesive tape AdvReac Intermediate Rash Verified 11/23/24 15:20 Penicillins AdvReac Unknown Rash Verified 11/23/24 15:20 Family History Mother Heart disease Surgical History Stented coronary artery (05/12/23) Status post hysterectomy with oophorectomy Hx of surgical procedure H/O tubal ligation H/O dilation and curettage H/O breast biopsy Hx of colonoscopy History of thyroidectomy H/O hernia repair Social History Smoking Status: Never smoker alcohol intake: never substance use type: does not use caffeine: Yes Type: coffee Number of servings: 1 seatbelt use: always do you feel safe at home: Yes additional social history: - [place] Vital Signs Vital Signs Vital Signs: 11/23/24 15:18 11/23/24 15:57 11/23/24 15:57 Temperature 98.2 F Temperature Source Oral Pulse Rate 69 55 L Pulse Strength Respiratory Rate 18 12 Respiratory Effort Respiratory Depth Respiratory Pattern Blood Pressure 179/70 H 105/66 Blood Pressure Mean 106 79 Blood Pressure Source Blood Pressure Position Blood Pressure Location Pulse Ox 99 97 Oxygen Delivery Method Room Air Room Air Room Air 11/23/24 16:03 11/23/24 16:18 11/23/24 16:30 Temperature Temperature Source Pulse Rate 55 L 60 61 Pulse Strength Respiratory Rate 16 14 16 Respiratory Effort Respiratory Depth Respiratory Pattern Blood Pressure 105/66 139/64 H 154/80 H Blood Pressure Mean 79 89 104 Blood Pressure Source Blood Pressure Position Blood Pressure Location Pulse Ox 97 98 97 Oxygen Delivery Method Room Air Room Air Room Air 11/23/24 17:00 11/23/24 17:06 11/23/24 17:49 Temperature 97.8 F Temperature Source Pulse Rate 62 62 63 Pulse Strength Respiratory Rate 15 15 17 Respiratory Effort Respiratory Depth Respiratory Pattern Blood Pressure 131/62 H 131/62 H 131/62 H Blood Pressure Mean 85 85 85 Blood Pressure Source Blood Pressure Position Blood Pressure Location Pulse Ox 96 96 97 Oxygen Delivery Method Room Air Room Air 11/23/24 18:15 11/23/24 18:36 11/23/24 19:11 Temperature 97.8 F Temperature Source Oral Pulse Rate 59 L 63 Pulse Strength Respiratory Rate 14 Respiratory Effort Normal Non-Labored Respiratory Depth Normal Respiratory Pattern Normal Blood Pressure 134/57 H Blood Pressure Mean 82 Blood Pressure Source Monitor Blood Pressure Position Semi-Fowlers Blood Pressure Location Right Forearm Pulse Ox 99 Oxygen Delivery Method Room Air Room Air 11/23/24 19:35 11/23/24 20:00 11/23/24 20:06 Temperature 98.5 F Temperature Source Oral Pulse Rate 61 Pulse Strength Respiratory Rate 16 Respiratory Effort Normal Non-Labored Respiratory Depth Normal Respiratory Pattern Normal Blood Pressure 129/54 H Blood Pressure Mean 79 Blood Pressure Source Monitor Blood Pressure Position Semi-Fowlers Blood Pressure Location Right Arm Pulse Ox 97 94 Oxygen Delivery Method Room Air Room Air Room Air 11/23/24 23:55 11/24/24 03:00 11/24/24 03:53 Temperature 98.7 F 98.6 F Temperature Source Oral Oral Pulse Rate 57 L 56 L 55 L Pulse Strength Respiratory Rate 15 16 Respiratory Effort Respiratory Depth Respiratory Pattern Blood Pressure 134/50 H 150/52 H Blood Pressure Mean 78 84 Blood Pressure Source Monitor Monitor Blood Pressure Position Semi-Fowlers Semi-Fowlers Blood Pressure Location Right Arm Right Arm Pulse Ox 95 97 Oxygen Delivery Method Room Air Room Air 11/24/24 04:06 11/24/24 06:41 11/24/24 07:31 Temperature 98.1 F Temperature Source Oral Pulse Rate 56 L Pulse Strength Respiratory Rate 14 Respiratory Effort Normal Non-Labored Respiratory Depth Normal Respiratory Pattern Normal Blood Pressure 134/38 H Blood Pressure Mean 70 Blood Pressure Source Monitor Blood Pressure Position Semi-Fowlers Blood Pressure Location Right Arm Pulse Ox 95 98 Oxygen Delivery Method Room Air Room Air Room Air 11/24/24 08:30 11/24/24 10:00 11/24/24 10:01 Temperature 98.8 F Temperature Source Oral Pulse Rate 63 Pulse Strength Normal (2+) Respiratory Rate 16 Respiratory Effort Normal Non-Labored Respiratory Depth Normal Respiratory Pattern Normal Blood Pressure 136/49 H Blood Pressure Mean 78 Blood Pressure Source Monitor Blood Pressure Position Semi-Fowlers Blood Pressure Location Right Arm Pulse Ox 98 Oxygen Delivery Method Room Air Room Air Weight Weight: 83.3 kg Body Mass Index (BMI) 33.5 EEG Results Procedure Details EEG Procedure Details: ROBSON BROWNING is a 79 year old F with a past medical history of , who presents for evaluation of Electroencephalogram on DATE at TIME Lab / Micro Data 11/24/24 05:59 11/24/24 05:59 Labs: Laboratory Results - last 24 hr 11/23/24 15:50: WBC 5.0, RBC 3.80 L, Hgb 11.8 L, Hct 34.6 L, MCV 91.1, MCH 31.1, MCHC 34.1, RDW Std Deviation 42.8, RDW Coeff of Jennifer 13.0, Plt Count 179, MPV 9.1, Immature Gran % (Auto) 0.800, Neut % (Auto) 57.1, Lymph % (Auto) 26.5, [place] % (Auto) 11.0 H, Eos % (Auto) 3.6, Baso % (Auto) 1.0, Absolute Neuts (auto) 2.9, Absolute Lymphs (auto) 1.33, Nucleated RBC % 0, PT 14.0, INR 1.1, APTT 29.0, Sodium 136, Potassium 4.2, Chloride 106, Carbon Dioxide 21.7, Anion Gap 8, BUN 17, Creatinine 0.75, Estim Creat Clear Calc 57.03, Est GFR (MDRD) Non-Af 80, BUN/Creatinine Ratio 22.2 H, Glucose 95, Hemoglobin A1c 5.6, Calcium 8.3, Troponin T High Sens 10, Troponin T Hi Sens 2 Hr Cancelled, TSH 8.080 H, Free T4 1.50 H 11/23/24 15:56: POC Glucose 98 11/23/24 19:07: Troponin T Hi Sens 2 Hr 8 11/23/24 20:59: Troponin T Hi Sens 4Hr 7 11/24/24 05:59: WBC 4.6, RBC 4.09 L, Hgb 12.6, Hct 37.4, MCV 91.4, MCH 30.8, MCHC 33.7, RDW Std Deviation 44.3 H, RDW Coeff of Jennifer 13.2, Plt Count 195, MPV 9.3, Sodium 138, Potassium 4.1, Chloride 104, Carbon Dioxide 20.0 L, Anion Gap 14, BUN 19, Creatinine 0.78, Estim Creat Clear Calc 55.18, Est GFR (MDRD) Non-Af 76, BUN/Creatinine Ratio 24.1 H, Glucose 94, Calcium 9.1, Triglycerides 227 H, Cholesterol 168, LDL Cholesterol, Calc 75, VLDL Cholesterol 45 H, HDL Cholesterol 48, Cholesterol/HDL Ratio 3.50 Imaging Radiology Impression Head/Neck CTA 11/23/24 15:34 IMPRESSION: 1. No acute intracranial or cervical large vessel arterial occlusion or high-grade stenosis, no significant change from prior exam. 2. Dominant right vertebral artery with diffusely hypoplastic left vertebral artery, with moderate-advanced stenosis of the distal left V4 segment. Widely patent right vertebral artery. 3. Mild-moderate focal narrowing of the proximal basilar artery. No significant ICA stenosis. 4. Mild short-segment narrowings along the left PHYLICIA A2-A3 segments. \ Reading Location: [id number] Brain CT 11/23/24 15:36 IMPRESSION: No acute abnormality is seen. Red Alert: Chronic changes The critical information above was relayed directly by me by telephone to Arnulfo Perrin on 11/23/2024 at 3:48 pm with readback verification. Reading Location: [id number] Echocardiogram 11/24/24 08:20 Interpretation Summary Normal left ventricular size, wall thickness, there is mild concentric LVH, no regional wall motion normality, normal LVEF with estimated ejection fraction of 55 to 60%. Grade 1 diastolic dysfunction. Normal right ventricular size and function. Mild diffuse aortic valve thickening. Moderate (2+) centrally directed aortic valve insufficiency, with pressure half-time of 344 ms. Ordering Physician: Lynne Tabares Referring Physician: Elis Cardenas Performed By: Rosanne Hays, DONNIE, RVT Brain MRI 11/24/24 17:20 IMPRESSION: 1. No acute intracranial process is seen. 2. Moderate bilateral cerebral and pontine white matter changes, consistent with chronic ischemic changes of small-vessel disease. 3. Mild generalized cerebral atrophy. Reading Location: [place] [id number] Active Medications Active Medications Active Medications: Current Medications Generic Name Dose Route Start Last Admin Trade Name Freq PRN Reason Stop Dose Admin Acetaminophen 650 mg 11/23/24 18:12 11/23/24 21:14 Acetaminophen 325 Mg Tablet PO 650 mg Q6H PRN PRN Administration Pain 1-10 Or Fever>100.7 Ascorbic Acid 500 mg 11/24/24 10:00 11/24/24 09:09 Ascorbic Acid 500 Mg Tablet PO 500 mg DAILY LIMA Administration Aspirin 81 mg 11/24/24 08:00 11/24/24 09:09 Aspirin E.C. 81 Mg Tablet PO 81 mg BREAKFAST LIMA Administration Atorvastatin Calcium 40 mg 11/24/24 10:00 11/24/24 09:09 Atorvastatin Calcium 40 Mg Tablet PO 40 mg DAILY LIMA Administration Citalopram Hydrobromide 10 mg 11/24/24 10:00 11/24/24 09:09 Citalopram 10 Mg Tablet PO 10 mg DAILY LIMA Administration Clopidogrel Bisulfate 75 mg 11/24/24 10:00 11/24/24 09:09 Clopidogrel Bisulfate 75 Mg Tablet PO 75 mg DAILY LIMA Administration Hydralazine HCl 5 mg 11/23/24 18:12 Hydralazine 20 Mg/Ml Vial IV 11/24/24 18:12 Q30M PRN maintain BP parameters with HR <60 Sodium Chloride 250 mls @ 15 mls/hr 11/23/24 18:35 IV .[id number] PRN Saline Flush Sodium Chloride 250 mls @ 15 mls/hr 11/23/24 18:35 IV .[id number] PRN Additional IVPB Infusion Labetalol HCl 20 mg 11/23/24 15:33 Labetalol 20 Mg/4 Ml Vial IV 11/24/24 15:33 X1 PRN BLOOD PRESSURE Labetalol HCl 10 - 20 mg 11/23/24 18:12 Labetalol 20 Mg/4 Ml Vial IV 11/24/24 18:12 Q10M PRN PRN maintain BP parameters with HR >/=60 Levothyroxine Sodium 137 mcg 11/24/24 06:00 11/24/24 05:20 Levothyroxine 137 Mcg Tablet PO 137 mcg DAILY@0600 LIMA Administration Melatonin 3 mg 11/23/24 18:12 11/23/24 21:14 Melatonin 3 Mg Tablet PO 3 mg QHS PRN PRN Administration INSOMNIA Ondansetron HCl 4 mg 11/23/24 18:12 Ondansetron 4 Mg/2 Ml Vial IV Q8H PRN PRN NAUSEA/VOMITING Sodium Chloride 10 - 40 ml 11/23/24 18:35 0.9% Saline Lock 10 Ml Syringe IV UD PRN SALINE FLUSH NIHSS NIHSS Nursing Documentation NIHSS Nursing Documentation: NIHSS: Ischemic Stroke/TIA Start: 11/23/24 18:12 Text: For ICU Patients: NIH sroke scale at Status: Complete presentation and every 2 hours or with change in RN caregiver Freq: [id number] Protocol: Activity Type Activity Date Activity User E-sign Co-sign Detail Recorded Client Recorded Date Recorded By Document 11/23/24 18:12 Nadege [id number] 11/23/24 18:17 Nadege 11/23/24 18:12 NIH Stroke Scale [NIHSS] A score of 0 is normal or asymptomatic . Total possible score is 42. Inpatient: RN or Physician to activate a stroke alert for onset of new stroke symptoms or with NIHSS increase >/= 3 points. Following change in neurological status, NIHSS will be performed per physician order or more frequently PRN. -1a. Level of Consciousness 0 - Alert; keenly responsive -1b. LOC Questions 0 - Answers BOTH questions correctly -1c. LOC Commands 0 - Performs BOTH tasks correctly -2. Best Gaze 0 - Normal -3. Visual 0 - No visual loss -4. Facial Palsy 1 - Minor paralysis ( flattened nasolabial fold , asymmetry on smiling) -5a. Left Arm 0 - No drift; arm holds 90 ( or 45) degrees for full 10 seconds -5b. Right Arm 0 - No drift; arm holds 90 ( or 45) degrees for full 10 seconds -6a. Left Leg 0 - No drift; leg holds 30- degree position for full 5 seconds -6b. Right Leg 0 - No drift; leg holds 30- degree position for full 5 seconds -7. Limb Ataxia 0 - Absent -8. Sensory 0 - Normal; no sensory loss -9. Best Language 0 - No aphasia; normal -10. Dysarthria 0 - Normal -11. Extinction and Inattention 0 - No abnormality -Total 1 Query Text:A score of 0 is normal or asymptomatic. Total possible score is 42 . ED: Notify Physician for NIHSS increase by > / = 3 points. Inpatient: RN or Physician to activate a stroke alert for NIHSS increase of > / = 3 points. Coma Scale [Assess] -Eye Opening Spontaneous -Motor Obeys Commands -Verbal Oriented [Total] -Coma Scale Total 15 NIHSS: Ischemic Stroke/TIA Start: 11/23/24 18:12 Text: For PCU Patients: NIH and Neuro Check every 4 Status: Active hours, PRN and with change in RN caregiver. Freq: [id number] Protocol: Activity Type Activity Date Activity User E-sign Co-sign Detail Recorded Client Recorded Date Recorded By Document 11/24/24 10:00 RY [id number] 11/24/24 11:29 RY 11/24/24 10:00 NIH Stroke Scale [NIHSS] A score of 0 is normal or asymptomatic . Total possible score is 42. Inpatient: RN or Physician to activate a stroke alert for onset of new stroke symptoms or with NIHSS increase >/= 3 points. Following change in neurological status, NIHSS will be performed per physician order or more frequently PRN. -1a. Level of Consciousness 0 - Alert; keenly responsive -1b. LOC Questions 0 - Answers BOTH questions correctly -1c. LOC Commands 0 - Performs BOTH tasks correctly -2. Best Gaze 0 - Normal -3. Visual 0 - No visual loss -4. Facial Palsy 1 - Minor paralysis ( flattened nasolabial fold , asymmetry on smiling) -5a. Left Arm 0 - No drift; arm holds 90 ( or 45) degrees for full 10 seconds -5b. Right Arm 0 - No drift; arm holds 90 ( or 45) degrees for full 10 seconds -6a. Left Leg 0 - No drift; leg holds 30- degree position for full 5 seconds -6b. Right Leg 0 - No drift; leg holds 30- degree position for full 5 seconds -7. Limb Ataxia 0 - Absent -8. Sensory 0 - Normal; no sensory loss -9. Best Language 0 - No aphasia; normal -10. Dysarthria 0 - Normal -11. Extinction and Inattention 0 - No abnormality -Total 1 Query Text:A score of 0 is normal or asymptomatic. Total possible score is 42 . ED: Notify Physician for NIHSS increase by > / = 3 points. Inpatient: RN or Physician to activate a stroke alert for NIHSS increase of > / = 3 points. Coma Scale [Assess] -Eye Opening Spontaneous -Motor Obeys Commands -Verbal Oriented [Total] -Coma Scale Total 15
--- NOTE | 2024-11-24 13:04 | DS.PCM_ITS ---
Providers Date of Admission: 11/23/24 Date of Discharge: 11/24/24 Primary Care Physician: Dr. Elis Cardenas, Consultations 11/23/24 18:12 Consult: Tele-Neurology Routine Consulting Provider: [facility] Reason for Consult: Acute Ischemic Stroke/TIA EMERGENT Consult: No MD Notified: Yes Date Notified: 11/23/24 Time Notified: 23:51 Method of Notification: Answering Service Nursing Unit Staff Notify [facility] of Tele-Neurology Consult: Yes Reason For Visit: STROKELIKE SYMPTOMS Diagnosis Discharge Diagnosis (1) Facial paresthesia: Status: Acute Code(s): R20.2 - Paresthesia of skin Medications at Discharge Home Medications ascorbic acid (vitamin C) 500 mg tablet (Vitamin C) 500 mg PO DAILY 05/21/22 cholecalciferol (vitamin D3) 125 mcg (5,000 unit) tablet (Vitamin D3) 125 mcg PO DAILY 05/21/22 aspirin 81 mg tablet,delayed release 81 mg PO DAILY@0800 #90 tabs 03/13/23 Handicap Placard #1 ea 04/23/23 levothyroxine 137 mcg tablet 137 mcg PO DAILY 04/23/23 lisinopril 20 mg tablet 20 mg PO DAILY #90 tabs 10/11/23 atorvastatin 40 mg tablet 40 mg PO QDAY #90 tabs 04/25/24 atenolol 25 mg tablet 25 mg PO DAILY #90 tabs 08/07/24 amlodipine 10 mg tablet 10 mg PO QDAY #90 tabs 08/24/24 lysine 1,000 mg tablet 500 mg PO DAILY 09/26/24 zinc lozenges 15 mg 50 mg PO DAILY 09/26/24 clopidogrel 75 mg tablet 75 mg PO DAILY #90 TABLETS 11/08/24 citalopram 10 mg tablet 10 mg PO DAILY 11/23/24 ticagrelor 90 mg tablet (Brilinta) 90 mg PO DAILY 11/23/24 Hospital Course Operations None Procedures 2-D Echocardiogram, EKG and - (CTA Head and Neck/CT Brain/ MRI Brain) Summary of Care Provided Minutes Spent on Discharge: 30 Hospital Course: Patient is an 79-year-old white female who presented to the emergency department [facility] [place] on 11/23/2024 with a chief complaint of right facial numbness and tingling. She was writing checks when her R face began to feel funny. She denied any arm or leg paresthesias or any motor symptoms. She denied any headache. Because of her vascular history, she came in for further evaluation--> she has a hx basilar aa stenosis and CAD with stenting. She takes ASA and Plavix. VS on presentation show 98.2, HR 69, 18, 179/70, SpO2 was 99%. CBC showed a mild anemia and BMP was unremarkable. CT brain and CTA head and neck unremarkable except for chronic findings. Given her history with vascular issues, she was admitted for stroke workup. MRI of the brain was unremarkable for acute findings. ECHO showed and EF 55-60% with grade I diastolic dysfunction, moderate 2+ ELÍAS. Neuro saw the pt and was unclear on the etiology of her sx and didn't recommend any changes in her current therapy. Her TSH was 8.08, Free T4 was 1.50. She is on levothyroxine and no changes were made but pt will need outpt recheck in 6 weeks. She was d/c home in stable condition and asked to f/u with her PCP in 1-2 weeks. 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 MCI H/O Corrales's Palsy with L Facial Droop Obesity Physical Exam Const alert, oriented x3, no apparent distress, no limitations and well nourished; Negative for average body habitus Constitutional Narrative: Obese, elderly, white female, sitting up in a chair at the bedside, appears comfortable, nontoxic, at bedside General Appearance: cooperative, comfortable, well kempt and well developed Exam Limitations: no limitations Nutritional Appearance: obese HEENT normocephalic and head/scalp atraumatic HEENT Narrative: Mallampati 3, no thrush it is okay I am still doing notes maybe I will just drive to your house Eyes conjunctivae normal Eyes Narrative: No scleral icterus Resp normal respiratory effort, no retractions, no use of accessory muscles and clear to auscultation bilaterally Auscultation: Negative for rales, rhonchi or wheezes Cardio regular rate, regular rhythm, S1 normal heart sound, S2 normal heart sound, no murmurs, no rub, no gallops and no clicks GI normal to inspection, nondistended, normoactive bowel sounds, soft to palpation and non-tender Extremity no clubbing, cyanosis or edema Neuro oriented x3, CN's II-XII intact bilaterally, moves all extremities and no focal motor deficits Neuro Narrative: mild L facial droop Speech: speech normal Psych affect normal Psych Narrative: Extremely pleasant, interacts appropriately Weight / BMI Weight Weight: 83.3 kg Body Mass Index (BMI) 33.5 ABG / Lab / Microbiology Data 11/24/24 05:59 11/24/24 05:59 Laboratory: Laboratory Results - last 24 hr 11/23/24 15:50: Hemoglobin A1c 5.6, Troponin T Hi Sens 2 Hr Cancelled, TSH 8.080 H, Free T4 1.50 H 11/23/24 19:07: Troponin T Hi Sens 2 Hr 8 11/23/24 20:59: Troponin T Hi Sens 4Hr 7 11/24/24 05:59: WBC 4.6, RBC 4.09 L, Hgb 12.6, Hct 37.4, MCV 91.4, MCH 30.8, MCHC 33.7, RDW Std Deviation 44.3 H, RDW Coeff of Jennifer 13.2, Plt Count 195, MPV 9.3, Sodium 138, Potassium 4.1, Chloride 104, Carbon Dioxide 20.0 L, Anion Gap 14, BUN 19, Creatinine 0.78, Estim Creat Clear Calc 55.18, Est GFR (MDRD) Non-Af 76, BUN/Creatinine Ratio 24.1 H, Glucose 94, Calcium 9.1, Triglycerides 227 H, Cholesterol 168, LDL Cholesterol, Calc 75, VLDL Cholesterol 45 H, HDL Cholesterol 48, Cholesterol/HDL Ratio 3.50 Radiography Diagnostic Testing: Radiology Impression Echocardiogram 11/24/24 08:20 Interpretation Summary Normal left ventricular size, wall thickness, there is mild concentric LVH, no regional wall motion normality, normal LVEF with estimated ejection fraction of 55 to 60%. Grade 1 diastolic dysfunction. Normal right ventricular size and function. Mild diffuse aortic valve thickening. Moderate (2+) centrally directed aortic valve insufficiency, with pressure half- time of 344 ms. Ordering Physician: Lynne Tabares Referring Physician: Elis Cardenas Performed By: Rosanne Hays, DONNIE, RVT Brain MRI 11/24/24 17:20 IMPRESSION: 1. No acute intracranial process is seen. 2. Moderate bilateral cerebral and pontine white matter changes, consistent with chronic ischemic changes of small-vessel disease. 3. Mild generalized cerebral atrophy. Reading Location: [place] [address] D/ Instructions Discharge Activity: Return to Normal Activity DC O2, CPAP, BIPAP Needs Home O2 Discharge instructions: No Meaningful Use Info Meaningful Use Meaningful Use Diagnoses (Choose all that apply): None applicable Discharge Plan Admission Admit Date/Time: 11/23/24 17:16 Primary Reason for Your Visit: Transient R sided parasthesias Attending Provider: Lynne Tabares Primary Care Provider: Elis Cardenas Consulting Providers: Raul Rachel; Nisha Plunkett; Kelly Nicolas; Uzma Torres; Krissy Castillo; Dev Sosa; Rosanna Walker; Davi Garcia; Luis M Gomez; Steven Alvarez; Trice Dumont; Michael Slade; Jeni Lockett; Scar Vogt; Nellie Whittaker; Stevie Burch; Rachel Holman; Washington Daily; Batool Tabares; Lobo Monroe; Tad Trimble Discharge Orders/Prescriptions Prescriptions: Continued levothyroxine 137 mcg tablet 137 mcg PO DAILY (DME) Handabena Woodard See Rx Instructions .Route .MEDSUPPLY Qty: 1 0RF Rx Instructions: Good From 04/23/2023-04/23/2028 lisinopril 20 mg tablet 20 mg PO DAILY Qty: 90 3RF atorvastatin 40 mg tablet 40 mg PO QDAY Qty: 90 3RF amlodipine 10 mg tablet 10 mg PO QDAY Qty: 90 3RF ascorbic acid (vitamin C) [Vitamin C] 500 mg Tablet 500 mg PO DAILY cholecalciferol (vitamin D3) [Vitamin D3] 125 mcg (5,000 unit) Tablet 125 mcg PO DAILY lysine 1,000 mg tablet 500 mg PO DAILY zinc lozenges 15 mg lozenge 50 mg PO DAILY aspirin 81 mg Tablet,Delayed Release (Dr/Ec) 81 mg PO DAILY@0800 Qty: 90 0RF ticagrelor [Brilinta] 90 mg tablet 90 mg PO DAILY citalopram 10 mg tablet 10 mg PO DAILY atenolol 25 mg tablet 25 mg PO DAILY Qty: 90 3RF clopidogrel 75 mg tablet 75 mg PO DAILY Qty: 90 3RF Referrals / Follow Up: Elis Cardenas DO [Primary Care Provider] - Within 2 Weeks Disposition Disposition (needs filled in before D/C Order can be placed): Home, Self Care Charges/Coding Visit Charges Inpatient E&M: 23496 Disch Hosp
[2024-11-24 13:08] VITALS: BP 129/69; PULSE 69; RESP 16; TEMP 36.9; O2SAT 97
--- NOTE | 2024-11-24 13:24 | CASEMGMT ---
CASSY MOORE NOTE: Discharge order is in. PT/OT/ST evals reviewed. No additional therapy recommended. CASSY CM to room. Pt sitting up in chair. Introduced self and role. Pt states she is ready to discharge home and denies having any concerns w/going home. She states her will be taking her home. Yessica JOHNSONN CASSY CM
--- NOTE | 2024-11-24 14:37 | CHAPLAIN ---
Type of Pastoral Visit ___ Initial Visit _x__ Follow-up Visit ___ On-call Visit ___ General Patient Visit ___ Spiritual Assessment ___ Family Conference ___ Bereavement ___ Rapid Response ___ Code Blue ___ Other (describe below) Pastoral Care Referral From _x__ Patient ___ Family ___ Nurse ___ Physician ___ Environmental Monitoring Technician ___ Enamel Applier ___ Other (describe below) Sacrament/Intervention _x__ Active listening ___ Anointing ___ Temple ___ Bereavement ___ Communion ___ Vangie exploration ___ ___ Life review ___ Prayer ___ Reconciliation ___ Sacrament of Sick _x__ Supportive presence ___ Wedding ___ Other (describe below) Pastoral Comments patient is doing well and wants to go home so she can sleep; spouse is with her; casual conversation
--- NOTE | 2024-11-24 17:20 | MRI_ITS ---
PROCEDURE: BRAIN WITHOUT CONTRAST 11/24/2024 REASON FOR EXAM: CVA RULE OUT TECHNIQUE: BRAIN WITHOUT CONTRAST Multiplanar and multisequence images were obtained. COMPARISON: Head CT 11/23/2024. FINDINGS: Brain: Diffusion-weighted images demonstrate no area of restricted diffusion. No intracranial hemorrhage, mass, or mass effect is seen. No extra-axial fluid collection is noted. Moderate bilateral cerebral and pontine white matter changes are seen, consistent with chronic ischemic changes of small-vessel disease. Ventricles: Mild generalized cerebral atrophy is seen, with symmetric ventricular enlargement consistent with the degree of atrophy Sinuses: Clear. Mastoids: Essentially clear MRI/Brain without Contrast IMPRESSION: 1. No acute intracranial process is seen. 2. Moderate bilateral cerebral and pontine white matter changes, consistent wit h chronic ischemic changes of small-vessel disease. 3. Mild generalized cerebral atrophy. Reading Location: [place] [id number]
--- NOTE | 2024-11-24 17:20 | MRI_ITS ---
PROCEDURE: BRAIN WITHOUT CONTRAST 11/24/2024 REASON FOR EXAM: CVA RULE OUT TECHNIQUE: BRAIN WITHOUT CONTRAST Multiplanar and multisequence images were obtained. COMPARISON: Head CT 11/23/2024. FINDINGS: Brain: Diffusion-weighted images demonstrate no area of restricted diffusion. No intracranial hemorrhage, mass, or mass effect is seen. No extra-axial fluid collection is noted. Moderate bilateral cerebral and pontine white matter changes are seen, consistent with chronic ischemic changes of small-vessel disease. Ventricles: Mild generalized cerebral atrophy is seen, with symmetric ventricular enlargement consistent with the degree of atrophy Sinuses: Clear. Mastoids: Essentially clear MRI/Brain without Contrast IMPRESSION: 1. No acute intracranial process is seen. 2. Moderate bilateral cerebral and pontine white matter changes, consistent wit h chronic ischemic changes of small-vessel disease. 3. Mild generalized cerebral atrophy. Reading Location: [place] [id number]
== END 2024-11-24 14:44 | disposition home or self-care (01) ==
LOC: ED 17:19 → PCU 17:23
PROVIDERS: Admitting Provider Hospitalist; Emergency Provider Emergency Medicine; PCP Family Medicine; Visit Provider Internal Medicine
DX: I65.1 Occlusion and stenosis of basilar artery (principal); I11.0 Hypertensive heart disease with heart failure; I50.22 Chronic systolic (congestive) heart failure; R20.2 Paresthesia of skin; Z79.82 Long term (current) use of aspirin; G31.84 Mild cognitive impairment of uncertain or unknown etiology; E78.00 Pure hypercholesterolemia, unspecified; Z79.890 Hormone replacement therapy; Z68.33 Body mass index [BMI] 33.0-33.9, adult; Z86.73 Personal history of transient ischemic attack (TIA), and cerebral infarction without residual deficits; I25.5 Ischemic cardiomyopathy; E89.0 Postprocedural hypothyroidism; E66.811 Obesity, class 1; I25.10 Atherosclerotic heart disease of native coronary artery without angina pectoris; Z79.899 Other long term (current) drug therapy; K21.9 Gastro-esophageal reflux disease without esophagitis; G51.0 Bell's palsy; F41.9 Anxiety disorder, unspecified; F32.A Depression, unspecified; Z95.5 Presence of coronary angioplasty implant and graft; R47.89 Other speech disturbances
CPT/HCPCS: 36415; 70450; 70496; 70498; 70551; 80048; 80061; 82962; 83036; 84439; 84443; 84484; 85025; 85027; 85610; 85730; 92522; 93005; 93306; 94668; 94762; 97161; 97166; 99221; 99285; Q9967; A4216; G0378

== ENCOUNTER → 2024-12-29 | Outpatient (CLI) | payer MEDICARE, OTHER, SELFPAY ==
[2023-08-11 09:38] VITALS: BMI 29.8
[2025-01-01 19:08] LABS: Thyroglobulin, Serum Qt. < 0.1 ng/mL (1.5-38.5)
== END | disposition home or self-care (01) ==
PROVIDERS: PCP Family Medicine; Referring Provider Nurse Practitioner Adult Health; Visit Provider Nurse Practitioner Adult Health
DX: E89.0 Postprocedural hypothyroidism (principal); Z85.850 Personal history of malignant neoplasm of thyroid
CPT/HCPCS: 36415; 84432; 84443; 86800

== ENCOUNTER → 2025-01-19 | Outpatient (CLI) | payer MEDICARE, OTHER, SELFPAY ==
[2023-08-11 09:38] VITALS: BMI 29.8
--- NOTE | 2025-01-19 12:15 | BI_ITS ---
EXAM: SCRN MAMM (CAD)W/NICA BILAT DATE: 01/19/2025 CLINICAL HISTORY: F, Age 79 y/o , SCREENING TECHNIQUE: Procedure Code: [id number] Modality: MG Procedure: SCRN MAMM (CAD)W/NICA BILAT COMPARISON: Prior exam(s) were compared. FINDINGS: TISSUE DENSITY: The breasts are heterogeneously dense, which may obscure small masses. Bilateral Breast Mammographic Findings: No suspicious masses, calcifications or other abnormalities are identified. BI/SCRN MAMM (CAD)W/NICA BILAT IMPRESSION: No mammographic evidence of malignancy in either breast OVERALL FINAL ASSESSMENT BI-RADS 1: NEGATIVE. RECOMMENDATION: Routine annual follow-up in 1 Year Additional Recommendation none A letter with findings and recommendations will be mailed to the patient. Reading Location: [id number]
--- OUTSIDE RECORDS SUMMARY | 2025-01-19 12:33 | XMS RPT_ITS | CCD ---
Author Organization [facility] Care Team Providers Care Die Sinker Apprentice Name Role Phone Dr. Elis Cardenas Primary Care Provider Dr. Jakub Godinez Attending Provider [phone] Elis Cardenas Referring Provider Dr. Afua Barry Attending Provider [phone] Dr. Elis Cardenas Primary Care Provider [phone] Dr. Jakub Godinez Attending Provider [phone] Elis Cardenas Referring Provider [phone] Afua Barry Attending Provider [phone] DORINDA Gayle NP Attending Provider [phone] Dr. Elis Cardenas Primary Care Provider Dr. Elis Cardenas Referring Provider Dr. Afua Barry Attending Provider [phone] Dr. Joseph Valdivia Attending Provider [phone] Afua Barry Referring Provider [phone] Dr. Afua Barry Other Provider Dr. Kourtney Virk Other Provider Dr. Jony Pratt Other Provider Dr. Elis Cardenas Primary Care Provider Dr. Elis Cardenas Referring Provider [phone] Afua Barry Attending Provider [phone] Dr. Ronald Elis Primary Care Provider Ronald, Dr. Gillis Referring Provider [phone] Dr. Royal Martinez Attending Provider Dr. Martin Wilkins Emergency Provider Dr. Lynne Tabares Admit Provider Dr. Lynne Tabares Attending Provider Dr. Lynne Tabares Other Provider Shun, Dr. Edmonds Attending Provider Shun, Dr. Edmonds Other Provider Dr. Alfonso Anderson Other Provider Unavailable Dr. Alfonso Anderson Attending Provider Unavailable Aristides, Dr. Blanco Attending Provider Dr. Lynne Tabares Referring Provider Roof CLAY DRY PRESS HELPER, CLAY DRY PRESS HELPER-Nicol Marie Attending Provider Shun, Dr. Edmonds Referring Provider Ronald, Dr. Gillis Primary Care Provider Ronald, Dr. Gillis Referring Provider [phone] Dr. Joseph Valdivia Attending Provider Ronald, Dr. Gillis Primary Care Provider Shun, Dr. Edmonds Attending Provider Ronald, Dr. Gillis Referring Provider Roof CLAY DRY PRESS HELPER, CLAY DRY PRESS HELPER-Nicol Marie Attending Provider Shun, Dr. Edmonds Referring Provider Shun, Dr. Edmonds Other Provider Dr. Joseph Valdivia Attending Provider Dr. Bella Irving Attending Provider Ronald, Dr. Gillis Primary Care Provider Shun, Dr. Edmonds Attending Provider Ronald, Dr. Gillis Primary Care Provider Dr. Elis Cardenas Referring Provider Dr. Royal Martinez Attending Provider Ronald BONILLA, Dr. Gillis Primary Care Provider [phone] Aristides GOULD, Dr. Blanco Attending Provider Aristides GOULD, Dr. Blanco Referring Provider Herbert GOULD, Dr. Call Attending Provider Ronald BONILLA, Dr. Gillis Referring Provider Michelle GOULD, Dr. Paige Attending Provider Michelle GOULD, Dr. Paige Referring Provider Uzma Vila Attending Provider Claribel Sims Referring Provider Ronald BONILLA, Dr. Gillis Attending Provider Referred, Self Attending Provider Unavailable Referred, Self Referring Provider Unavailable TJ SANITOR-SENIOR EXAMINER, EASTON Auguste Attending Unava ilable RONALD BONILLA, DR ELIS Church Primary Care Unavailable Ronald BONILLA, Dr. Gillis Primary Care Provider Ronald BONILLA, Dr. Gillis Referring Provider Dr. Royal Martinez MD Attending Provider Aristides GOULD, Dr. Blanco Attending Provider Dr. Bella Irving MD Referring Provider Vin BARRETT-CAfua Attending Provider Vin BARRETT-CAfua Referring Provider Ronald BONILLA, Dr. Gillis Primary Care Provider [phone] Ronald BONILLA, Dr. Gillis Referring Provider TJ BARRETT-CEASTON Attending Provider TJ BARRETT-CEASTON Referring Provider Ronald BONILLA, Dr. Elis Primary Care Provider Aristides GOULD, Dr. Blanco Attending Provider Moose GOULD, Dr. Oconnell Attending Provider Tammy BONILLA, Dr. Epstein Attending Provider Tammy BONILLA, Dr. Epstein Referring Provider Aydin GOULD, Arnulfo Emergency Provider Atilio BONILLA, Dr. Mishra Admit Provider Atilio BONILLA, Dr. Mishra Attending Provider Atilio BONILLA, Dr. Mishra Other Provider Raul Rachel MD Other Provider Unavailable Dimitrios GOULD, Dr. Cameron Other Provider [phone] Kelly Nicolas MD Other Provider Unavailable Brian BONILLA, Dr. Gusman Other Provider Anna GOULD, Dr. Rey Other Provider [phone] Sheila GOULD, Dr. Méndez Other Provider Denise GOULD, Dr. Marte Other Provider Radha GOULD, Dr. Tomlinson Other Provider [phone] Jason GOULD, Dr. Asencio Other Provider Antonio GOULD, Dr. Harris Other Provider Trice Dumont MD Other Provider Berlin GOULD, Dr. Rodriguez Other Provider Levy GOULD, Dr. Ngo Other Provider [phone] Sin GOULD, Dr. Abbott Other Provider Remedios GOULD, Dr. Nellie Carballo Other Provider Marcin GOULD, Dr. Hubbard Other Provider Manda GOULD, Dr. Ramos Other Provider Killian GOULD, Dr. Delarosa Other Provider Rayshawn GOULD, Dr. Renae Other Provider Unavailable Lobo Monroe MD Other Provider Unavailable Rayshawn BONILLA, Dr. Batista Attending Provider Tad Trimble Admitting Unavailable Tad Trimble Attending Unavailable Tad Trimble Consulting Unavailable Malys, Elis Primary Care Unavailable Raul Rachel Consulting Unavailable Lynne Tabares Attending Unavailable Adeli, Amir Consulting Unavailable Hinduja, Kelly Consulting Unavailable Brian, Uzma Consulting Unavailable Zha, Krissy Consulting Unavailable Sheila, Dev Consulting Unavailable Denise, Rosanna Consulting Unavailable Bittar, Daiv Consulting Unavailable Luis M Gomez Consulting Unavailable Steven Alvarez Consulting Unavailable Trice Dumont Consulting Unavailable Michael Slade Consulting Unavailable Jeni Lockett Consulting Unavailable RidScar blackburn Consulting Unavailable Remedios, Jeramyd Haris Consulting UnavailStevie Huynh Consulting Unavailable Holman, Ramvictor hugo Consulting Unavailable [place] Daily Consulting Unavailable Batool Tabares Consulting Unavailable Lobo Monroe Consulting Unavailable Lynne Tabares Consulting Unavailable Lynne Tabares Referring Unavailable Malys, Elis Primary Care Unavailable Mostafavifar, Ahmad Attending Unavailable Malys, Elis Primary Care Unavailable Afua Banuelos Referring Unavailable Afua Banuelos Attending Unavailable Malys, Elis Primary Care Unavailable Lucian Munoz Attending Unavailable Lucian Munoz Referring Unavailable TJ, EASTON Referring Unavailable Malys, Elis Primary Care Unavailable TJ, EASTON Attending Unavailable TJ, EASTON Referring Unavailable TJ, EASTON Attending Unavailable Malys, Elis Primary Care Unavailable Malys, Elis Referring Unavailable Malys, Elis Primary Care Unavailable Afua Banuelos Attending Unavailable Aristides, Bella Attending Unavailable Malys, Elis Primary Care Unavailable Malys, Elis Referring Unavailable Malys, Elis Attending Unavailable Malys, Elis Primary Care Unavailable Malys, Elis Referring Unavailable Aristides, Bella Attending Unavailable Malys, Elis Primary Care Unavailable Aristides, Bella Referring Unavailable Referred, Self Referring Unavailable Malys, Elis Primary Care Unavailable Referred, Self Attending Unavailable Malys, Elis Primary Care Unavailable Malys, Elis Attending Unavailable Royal Martinez Referring Unavailable Royal Martinez Attending Unavailable Malys, Elis Primary Care Unavailable Aristides, Bella Referring Unavailable Aristides, Bella Attending Unavailable Malys, Elis Primary Care Unavailable Aristides, Bella Attending Unavailable Malys, Elis Primary Care Unavailable Malys, Elis Referring Unavailable Malys, Elis Primary Care Unavailable Malys, Elis Referring Unavailable Afua Banuelos Attending Unavailable Malys, Elis Primary Care Unavailable Royal Martinez Attending Unavailable Malys, Elis Referring Unavailable Tad Trimble Admitting Unavailable Lynne Tabares Attending Unavailable Malys, Elis Primary Care Unavailable Raul Rachel Consulting Unavailable Adeli, Amir Consulting Unavailable Hinduja, Kelly Consulting Unavailable Brian, Uzma Consulting Unavailable Zha, Krissy Consulting Unavailable Sheila, Dev Consulting Unavailable Denise, Rosanna Consulting Unavailable BitDavi arboleda Consulting Unavailable Luis M Gomez Consulting Unavailable Steven Alvarez Consulting Unavailable Trice Dumont Consulting Unavailable Michael Slade Consulting Unavailable Jeni Lockett Consulting Unavailable Ridha, Mohamed Consulting Unavailable Zamarlys, Mhd Haris Consulting UnavailStevie Huynh Consulting Unavailable Holman, Rami Consulting Unavailable [place] Daily Consulting Unavailable Batool Tabares Consulting Unavailable Lobo Monroe Consulting Unavailable Tad Trimble Consulting Unavailable Malys, Elis Primary Care Unavailable Joe Mackenzie Attending Unavailable Malys, Elis Attending Unavailable Malys, Elis Primary Care Unavailable Malys, Elis Referring Unavailable Aristides, Bella Attending Unavailable Malys, Elis Primary Care Unavailable Aristides, Bella Referring Unavailable Malys, Elis Primary Care Unavailable Jakub Godinez Attending Unavailable Royal Martinez Attending Unavailable Malys, Elis Referring Unavailable Malys, Elis Primary Care Unavailable Claribel Sims Referring Unavail able Malys, Elis Primary Care Unavailable Uzma Lopez Attending Unavailable Aristides, Bella Attending Unavailable Aristides, Bella Referring Unavailable Malys, Elis Primary Care Unavailable Allergies Allergy Classification Reported Allergen(s) Allergy Type Date of Onset Reaction(s) Facility (20 sources) Adhesive Tape; Translations: [adhesive tape] Allergy to substance 2 [facility] Comment on above: PLASTIC TAPE (20 sources) Penicillins Allergy to substance 2 [facility] (20 sources) Sulfonamides (Antibiotic) Allergy to substance 2 Rash [facility] (20 sources) pepper (genus Capsicum) Allergy to substance 2 Swelling [facility] Comment on above: LIP SWELLING WITH NAHUM LEPENO (1 source) Penicillins Drug allergy (disorder) 5 [facility] Repository (1 source) Sulfonamides (Antibiotic) Drug allergy (disorder) 5 [facility] (1 source) pepper (genus Capsicum) Drug allergy (disorder) 5 [facility] Medications Current Medications Medication Drug Class(es) Dates Sig (Normalized) Sig (Original) amLODIPine 10 mg oral tablet (20 sources) Dihydropyridine Calcium Channel Becca Start: 08-24-2024 take 1 tablet by mouth once daily Amlodipine 10 mg tablet Active 10 mg PO daily 90 3 August 24, 2024 12:00am Start: 09-22-2015 End: 08-24-2024 take 1 tablet by mouth once daily Amlodipine 5 mg tablet Discontinued 5 mg PO DAILY 90 3 August 23, 2024 12:43pm August 24, 2024 4:42pm ascorbic acid 500 mg oral tablet (20 sources) Vitamin C Start: 05-21-2022 take 1 tablet by mouth once daily Ascorbic Acid (Vitamin C) (Vitamin C) 500 mg Tablet Active 500 mg PO DAILY May 21, 2022 1:00am aspirin 81 mg delayed release oral tablet (20 sources) Platelet Aggregation Inhibitor, Nonsteroidal Anti-inflammatory Drug Start: 03-13-2023 take 1 tablet by mouth once daily Aspirin 81 mg Tablet,Delayed Release (Dr/Ec) Active 81 mg PO DAILY@0800 90 0 March 13, 2023 1:00am Start: 05-21-2022 End: 04-23-2023 take 1 capsule by mouth once daily Aspirin 81 mg Capsule Discontinued 81 mg PO DAILY May 21, 2022 1:00am April 23, 2023 2:41pm B-Complex With Vitamin C (13 sources) Start: 05-21-2022 take 1 tablet by mouth once daily B-Complex With Vitamin C Active 1 TABLET PO DAILY May 21, 2022 1:00am Start: 05-21-2022 take 1 tablet by aly once daily B-Complex With Vitamin C Active 1 TABLET PO DAILY May 21, 2022 12:00am Calcium Carb And Citrate-Vitd3 (Citracal-D3 Slow Release) 600 mg-12.5 mcg (500 unit) Tablet Extended Release (13 sources) Start: 05-21-2022 take 2 tablets by mouth once daily Calcium Carb And Citrate-Vitd3 (Citracal-D3 Slow Release) 600 mg-12.5 mcg (500 unit) Tablet Extended Release Active 2 TABLET PO DAILY May 21, 2022 1:00am Start: 05-21-2022 take 2 tablets by mo uth once daily Calcium Carb And Citrate-Vitd3 (Citracal-D3 Slow Release) 600 mg-12.5 mcg (500 unit) Tablet Extended Release Active 2 TABLET PO DAILY May 21, 2022 12:00am cholecalciferol 0.125 mg oral tablet (20 sources) Vitamin D Start: 05-21-2022 take 1 tablet by mouth once daily Cholecalciferol (Vitamin D3) (Vitamin D3) 125 mcg (5,000 unit) Tablet Active 125 ug PO DAILY May 21, 2022 1:00am Start: 10-11-2015 End: 10-12-2019 take 1 tablet by mouth once daily Cholecalciferol (Vitamin D3) 1,000 UNIT tablet Discontinued 1000 U PO DAILY@1800 0 October 11, 2015 12:00am October 12, 2019 5:14pm citalopram 10 mg oral tablet (18 sources) Serotonin Reuptake Inhibitor Start: 11-23-2024 take 1 tablet by mouth once daily Citalopram 10 mg tablet Active 10 mg PO DAILY November 23, 2024 12:00am Start: 02-16-2023 End: 08-17-2023 take 1 tablet by mouth once daily Citalopram 10 mg tablet Discontinued 10 mg PO DAILY 22 09February 16, 2023 12:00am August 17, 2023 11:30am Handicap Placard (20 sources) Start: 04-23-[address] Active 0 .Route .MEDSUPPLY 1 April 23, 2023 3:23pm Ischemic cardiomyopathy Presence of stent in coronary artery Hyperlipidemia Hypertension Ischemic cardiomyopathy Presence of coronary angioplasty implant and graft Hyperlipidemia, unspecified Essential (primary) hypertension Good From 04/23/2023-04/23/2028 Start: 04-23-[address] Active 0 .Route .MEDSUPPLY 1 April 23, 2023 3:23pm Good From 04/23/2023-04/23/2028 Start: 04-23-[address] Active 0 .Route .MEDSUPPLY 1 April 23, 2023 2:23pm Good From 04/23/2023-04/23/2028 Start: 04-23-2023 End: 04-23-2023 Handicap Placard Discontinue d 0 .Route .MEDSUPPLY 1 0 April 23, 2023 1:00am April 23, 2023 3:23pm Ischemic cardiomyopathy Presence of stent in coronary artery Hyperlipidemia Hypertension Ischemic cardiomyopathy Presence of coronary angioplasty implant and graft Hyperlipidemia, unspecified Essential (primary) hypertension Good From 04/23/2023-04/23/2028 Start: 04-23-2023 End: 04-23-2023 Handicap Placard Discontinue d 0 .Route .MEDSUPPLY 1 April 23, 2023 1:00am April 23, 2023 3:23pm Good From 04/23/2023-04/23/2028 Start: 04-23-2023 End: 04-23-2023 Handicap Placard Discontinue d 0 .Route .MEDSUPPLY 1 April 23, 2023 12:00am April 23, 2023 2:23pm Good From 04/23/2023-04/23/2028 levothyroxine sodium 0.137 mg oral tablet (20 sources) l-Thyroxine Start: 04-23-2023 take 1 tablet by mouth once daily Levothyroxine 137 mcg tablet Active 137 ug PO DAILY April 23, 2023 1:00am Start: 12-25-2021 End: 04-23-2023 Levothyroxine 175 mcg tablet Discontinued 137 ug PO DAILY December 25, 2021 9:03am April 23, 2023 2:42pm Start: 12-25-2021 End: 04-23-2023 take 137 ug by mouth once daily Levothyroxine Discontinued 137 MCG PO DAILY December 25, 2021 9:03am April 23, 2023 2:42pm Start: 12-25-2021 take 150 ug by mouth once daily Levothyroxine Active 150 MCG PO DAILY December 25, 2021 8:03am Start: 08-31-2015 End: 12-25-2021 Levothyroxine 175 MCG tablet Discontinued 175 ug PO MOTUWETHFRSA August 31, 2015 12:00am December 25, 2021 9:04am lisinopril 20 mg oral tablet (20 sources) Angiotensin Converting Enzyme Inhibitor Start: 07-07-2023 End: 10-11-2023 take 1 tablet by mouth once daily Lisinopril 20 mg tablet Active 20 mg PO DAILY 90 3 October 11, 2023 3:59pm Start: 03-13-2023 End: 07-07-2023 take 1 tablet by mouth once daily Lisinopril 2.5 mg tablet Discontinued 2.5 mg PO DAILY 90 0 March 13, 2023 1:00am July 07, 2023 1:09pm Start: 09-07-2015 End: 09-07-2015 take 2 tablets by mouth once daily Lisinopril 10 MG tablet Discontinued 20 mg PO DAILY 30 0 September 07, 2015 12:00am September 07, 2015 4:02pm Start: 09-07-2015 End: 05-13-2023 take 1 tablet by mouth once daily Lisinopril 20 MG tablet Discontinued 20 mg PO DAILY 30 0 October 11, 2015 9:02pm May 13, 2023 11:22am Start: 09-07-2015 End: 09-07-2015 take 20 mg by mouth once daily Lisinopril Discontinued 20 MG PO DAILY 30 September 07, 2015 12:00am September 07, 2015 4:02pm lysine 1000 mg oral tablet (20 sources) Start: 09-26-2024 Lysine 1,000 m g tablet Active 500 mg PO DAILY September 26, 2024 8:43am Start: 05-21-2022 End: 09-26-2024 take 1 tablet by mouth once daily Lysine 1,000 mg Tablet Discontinued 1000 mg PO DAILY May 21, 2022 1:00am September 26, 2024 8:44am ticagrelor 90 mg oral tablet (20 sources) Start: 11-23-2024 take 1 tablet by mouth once daily Ticagrelor (Brilinta) 90 mg tablet Active 90 mg PO DAILY November 23, 2024 12:00am Start: 05-13-2023 End: 07-07-2023 take 1 tablet by mouth twice daily Ticagrelor (Brilinta) 90 mg Tablet Discontinued 90 mg PO TWICE A DAY 60 11 May 13, 2023 1:00am July 07, 2023 1:11pm Start: 03-13-2023 End: 04-08-2023 take 1 tablet by mouth twice daily Ticagrelor (Brilinta) 90 mg Tablet Discontinued 90 mg PO TWICE A DAY 180 0 March 13, 2023 1:00am April 08, 2023 4:18pm Turmeric Root Extract (13 sources) Start: 05-21-2022 take 500 mg by mouth once daily Turmeric Root Extract Active 500 MG PO DAILY May 21, 2022 1:00am Start: 05-21-2022 take 500 mg by mouth once bina y Turmeric Root Extract Active 500 MG PO DAILY May 21, 2022 12:00am Zinc Lozenges (13 sources) Start: 05-21-2022 take 15 mg by mouth once daily Zinc Lozenges Active 15 MG PO DAILY May 21, 2022 1:00am Start: 05-21-2022 take 15 mg by mouth once daily Zinc Lozenges Active 15 MG PO DAILY May 21, 2022 12:00am Zinc Lozenges 15 mg lozenge (7 sources) Start: 09-26-2024 Zinc Lozenges 15 mg lozenge Active 50 mg PO DAILY September 26, 2024 8:44am Completed/Discontinued Medications Medication Drug Class(es) Dates Sig (Normalized) Sig (Original) acetaminophen 325 mg / oxyCODONE hydrochloride 5 mg oral tablet (20 sources) Opioid Agonist Start: 05-29-2022 End: 06-11-2022 Oxycodone-Acetamin ophen (Percocet) 5-325 mg tablet Discontinued 1 {tbl} PO Q8H as needed for pain 14 5 0 May 29, 2022 June 11, 2022 4:13pm Stress incontinence of urine Stress incontinence (female) (male) acyclovir 400 mg oral tablet (20 sources) Herpesvirus Nucleoside Analog DNA Polymerase Inhibitor, Herpes Simplex Virus Nucleoside Analog DNA Polymerase Inhibitor, Herpes Zoster Virus Nucleoside Analog DNA Polymerase Inhibitor Start: 10-21-2022 End: 03-12-2023 take 1 tablet by mouth five times daily Acyclovir 400 mg tablet Discontinued 1 {tbl} PO 5 TIMES DAILY 35 0 October 21, 2022 12:00am March 12, 2023 4:53am Herkimer (20 sources) Start: 09-02-2015 End: 10-11-2015 take 1 tablet by mouth once daily Herkimer 600 MG tablet Discontinued 600 mg PO DAILY September 02, 2015 12:00am October 11, 2015 9:02pm Start: 09-02-2015 End: 10-11-2015 take 600 mg by mouth once daily Her[place] Discontinued 600 MG PO DAILY September 01, 2015 11:00pm October 11, 2015 8:02pm Start: 09-02-2015 End: 10-11-2015 take 600 mg by mouth once daily [place] Discontinued 600 MG PO DAILY September 02, 2015 12:00am October 11, 2015 9:02pm atenolol 25 mg oral tablet (20 sources) beta-Adrenergic Becca Start: 12-25-2021 End: 08-07-2024 take 1 tablet by mouth once daily Atenolol 25 mg tablet Discontinued 25 mg PO DAILY 90 October 11, 2023 3:59pm August 07, 2024 8:51am Start: 11-10-2017 End: 12-25-2021 take 1 tablet by mouth twice daily Atenolol 25 mg tablet Discontinued 25 mg PO TWICE A DAY November 10, 2017 2:27pm December 25, 2021 9:04am Start: 08-31-2015 End: 11-10-2017 take 1 tablet by mouth once daily Atenolol (Tenormin) 25 MG tablet Discontinued 25 mg PO DAILY August 31, 2015 12:00am November 10, 2017 2:28pm atorvastatin 80 mg oral tablet (20 sources) HMG-CoA Reductase Inhibitor Start: 04-25-2024 End: 04-25-2024 take 1 tablet by mouth at bedtime Atorvastatin 80 mg tablet Discontinued 80 mg PO AT BEDTIME 90 April 25, 2024 1:00am April 25, 2024 1:55pm Start: 03-13-2024 End: 04-25-2024 take 1 tablet by mouth once daily Atorvastatin 40 mg tablet Active 40 mg PO daily 90 April 25, 2024 1:56pm Start: 10-11-2023 End: 03-13-2024 take 1 tablet by mouth at bedtime Atorvastatin 20 mg tablet Discontinued 20 mg PO AT BEDTIME 90 October 11, 2023 12:00am March 13, 2024 3:56pm Start: 02-15-2023 End: 07-07-2023 take 1 tablet by mouth once daily Atorvastatin 40 mg tablet Discontinued 40 mg PO DAILY 90 1 February 15, 2023 12:00am July 07, 2023 1:11pm B-Complex With Vitamin C Tablet (8 sources) Start: 05-21-2022 End: 09-26-2024 B-Complex With Vitamin C Tab let Discontinued 1 {tbl} PO DAILY May 21, 2022 1:00am September 26, 2024 8:41am Start: 05-21-2022 B-Complex With Vitamin C Tablet Active 1 {tbl} PO DAILY May 21, 2022 1:00am bisacodyl 5 mg delayed release oral tablet (7 sources) Stimulant Laxative Start: 09-27-2024 End: 11-23-2024 take 1 tablet by mouth once as needed Bisacodyl (Gentle Laxative (Bisacodyl)) 5 mg tablet,delayed release (DR/EC) Discontinued 5 mg PO ONCE as needed September 27, 2024 12:00am November 23, 2024 4:35pm Calcium Carb, Citrate-Vit D3 (Citracal-D3 Slow Release) 600 mg-12.5 mcg (500 unit) Tablet Extended Release (8 sources) Start: 05-21-2022 End: 09-26-2024 Calcium Carb, Citrate-Vit D3 (Citracal-D3 Slow Release) 600 mg-12.5 mcg (500 unit) Tablet Extended Release Discontinued 2 {tbl} PO DAILY May 21, 2022 1:00am September 26, 2024 8:42am Start: 05-21-2022 Calcium Carb, Citrate-Vit D3 (Citracal-D3 Slow Release) 600 mg-12.5 mcg (500 unit) Tablet Extended Release Active 2 {tbl} PO DAILY May 21, 2022 1:00am cephalexin 500 mg oral capsule (20 sources) Cephalosporin Antibacterial Start: 05-29-2022 End: 06-11-2022 take 1 capsule by mouth every twelve hours Cephalexin 500 mg capsule Discontinued 500 mg PO EVERY 12 HOURS 6 3 0 May 29, 2022 1:00am June 11, 2022 4:13pm post-operative clopidogrel 75 mg oral tablet (20 sources) P2Y12 Platelet Inhibitor Start: 07-07-2023 End: 11-08-2024 take 1 tablet by mouth once daily Clopidogrel 75 mg tablet Discontinued 75 mg PO DAILY 90 3 July 14, 2023 10:37am October 11, 2023 4:00pm Start: 04-08-2023 End: 05-13-2023 take 1 tablet by mouth once daily Clopidogrel 75 mg tablet Discontinued 75 mg PO DAILY 90 3 April 23, 2023 3:16pm May 13, 2023 11:21am dextran 70 1 mg/ml / hypromellose 3 mg/ml ophthalmic solution (20 sources) Plasma Volume Assayer Start: 09-07-2015 End: 10-12-2019 take 1 drop(s) into the eye(s) every three hours as needed Dextran 70-Hypromellose 1 DROP bottle Discontinued 1 - 2 NMA LEFT EYE EVERY 3 HOURS NEEDED as needed for DRY EYE/IRRITATION 2 September 07, 2015 12:00am October 12, 2019 5:14pm Start: 09-07-2015 End: 10-12-2019 Dextran 70-Hypromellose Disc ontinued 1 - 2 DRP LEFT EYE EVERY 3 HOURS NEEDED 2 September 07, 2015 12:00am October 12, 2019 5:14pm diazePAM 2 mg oral tablet (20 sources) Benzodiazepine Start: 09-26-2015 End: 10-11-2015 take 1 tablet by mouth four times daily as needed for dizziness Diazepam 2 MG tablet Discontinued 2 mg PO 4 TIMES DAILY NEEDED as needed for Dizziness 30 0 September 26, 2015 12:00am October 11, 2015 9:02pm diphenhydrAMINE hydrochloride 25 mg oral capsule (20 sources) Histamine-1 Receptor Antagonist Start: 09-22-2015 End: 09-26-2015 take 2 capsules by mouth at bedtime as needed for sleep Diphenhydramine Hcl (Benadryl) 25 MG capsule Discontinued 50 mg PO AT BEDTIME NEEDED as needed for Sleep September 22, 2015 12:00am September 26, 2015 4:14pm docusate sodium 50 mg / sennosides, retirement 8.6 mg oral tablet (20 sources) Start: 10-11-2015 End: 11-10-2017 Sennosides-Docusate Sodium 1 TABLET tablet Discontinued 1 {tbl} PO TWICE A DAY 30 0 October 11, 2015 12:00am November 10, 2017 2:27pm Start: 10-11-2015 End: 11-10-2017 take 1 tablet by mouth twice daily Sennosides-Docusate Sodium Discontinued 1 TABLET PO TWICE A DAY 30 October 11, 2015 12:00am November 10, 2017 2:27pm estradiol 0.1 mg/ml vaginal cream (20 sources) Estrogen Start: 02-24-2022 End: 03-12-2023 Estradiol 0.01 % (0.1 mg/gram) cream Discontinued 0 VAGINAL .COMPLEX 42.5 2 February 24, 2022 12:00am March 12, 2023 4:54am On Hold: NO LONGER TAKING small amount as directed vaginal every day X 4 weeks then twice a week; Start: 02-24-2022 End: 03-12-2023 Estradiol Discontinued 0 VAG INAL .COMPLEX 42.5 February 24, 2022 12:00am March 12, 2023 4:54am On Hold: NO LONGER TAKING small amount as directed vaginal every day X 4 weeks then twice a week; ezetimibe 10 mg oral tablet (11 sources) Dietary Cholesterol Absorption Inhibitor Start: 07-14-2023 End: 10-11-2023 take 1 tablet by mouth once daily Ezetimibe (Zetia) 10 mg tablet Discontinued 10 mg PO DAILY 90 3 July 14, 2023 12:00am October 11, 2023 10:59am Garlic (20 sources) Non-Standardized Food Allergenic Extract Start: 05-21-2022 End: 09-26-2024 take 1 capsule by mouth once daily Garlic 1,000 mg Capsule Discontinued 1000 mg PO DAILY May 21, 2022 1:00am September 26, 2024 8:43am Start: 05-21-2022 take 1 capsule by mouth once d aily Garlic 1,000 mg Capsule Active 1000 mg PO DAILY May 21, 2022 1:00am Start: 05-21-2022 take 1000 mg by mouth once marquise ly Garlic Active 1000 MG PO DAILY May 21, 2022 1:00am Start: 05-21-2022 take 1000 mg by mouth once marquise ly Garlic Active 1000 MG PO DAILY May 21, 2022 12:00am Kxhfpcai-Mbwj-Wvf0-C-Dante-Ned sw (Osteo Bi-Flex Triple Strength) 1 EACH tablet (20 sources) Start: 09-02-2015 End: 10-11-2015 take 1 tablet by mouth once daily Xjadwzjt-Oajf-Lsg0-C-Dante-Bosw (Osteo Bi-Flex Triple Strength) 1 EACH tablet Discontinued 2 NMA PO DAILY September 02, 2015 12:00am October 11, 2015 9:02pm Start: 09-02-2015 End: 10-11-2015 take 1 tablet by mouth once daily Nhlrfjbc-Oaxw-Jjd4-C-Dante-Bosw (Osteo Bi -Flex Triple Strength) 1 EACH tablet Discontinued 2 EACH PO DAILY September 01, 2015 11:00pm October 11, 2015 8:02pm Start: 09-02-2015 End: 10-11-2015 take 1 tablet by mouth once daily Euclplfv-Gkqr-Moh1-C-Dante-Bosw (Osteo Bi -Flex Triple Strength) 1 EACH tablet Discontinued 2 EACH PO DAILY September 02, 2015 12:00am October 11, 2015 9:02pm hydroCHLOROthiazide 25 mg oral tablet (20 sources) Thiazide Diuretic Start: 09-26-2015 End: 11-10-2017 Hydrochlorothiazide 25 MG tablet Discontinued 12.5 mg PO DAILY 0 September 26, 2015 12:00am November 10, 2017 2:26pm Start: 09-26-2015 End: 11-10-2017 take 12.5 mg by mouth once daily Hydrochlorothiazide Discontinued 12.5 MG PO DAILY September 26, 2015 12:00am November 10, 2017 2:26pm linaclotide 0.29 mg oral capsule (6 sources) Guanylate Cyclase-C Agonist Start: 09-27-2024 End: 10-18-2024 take 1 capsule by mouth once daily 30 minutes before breakfast Linaclotide (Linzess) 290 mcg capsule Discontinued 290 ug PO EVERY MORNING 90 1 September 27, 2024 12:00am October 18, 2024 1:10pm take 30 minutes before breakfast every morning LORazepam 1 mg oral tablet (20 sources) Benzodiazepine Start: 10-11-2015 End: 11-10-2017 take 1 tablet by mouth every six hours as needed for dizziness Lorazepam 1 MG tablet Discontinued 1 mg PO EVERY 6 HOURS NEEDED as needed for Dizziness 30 0 October 11, 2015 12:00am November 10, 2017 2:26pm Magnesium (20 sources) Start: 05-21-2022 End: 02-15-2023 take 1 tablet by mouth once daily Magnesium 250 mg Tablet Discontinued 250 mg PO DAILY May 21, 2022 1:00am February 15, 2023 10:13am Start: 05-21-2022 End: 02-15-2023 take 250 mg by mouth once daily Magnesium Discontinued 250 MG PO DAILY May 21, 2022 1:00am February 15, 2023 10:13am Start: 05-21-2022 End: 02-15-2023 take 250 mg by mouth once daily Magnesium Discontinued 250 MG PO DAILY May 21, 2022 12:00am February 15, 2023 9:13am Start: 05-21-2022 take 250 mg by mouth once daily Magnesium Active 250 MG PO DAILY May 21, 2022 1:00am Start: 05-21-2022 take 250 mg by mouth once daily Magnesium Active 250 MG PO DAILY May 21, 2022 12:00am [place]-3 Fatty Acids (13 sources) Start: 05-21-2022 End: 02-15-2023 take 1000 mg by mouth once daily [place]-3 Fatty Acids Discontinued 1000 MG PO DAILY May 21, 2022 1:00am February 15, 2023 9:19am Start: 05-21-2022 End: 02-15-2023 take 1000 mg by mouth once daily [place]-3 Fatty Acids Discontinued 1000 MG PO DAILY May 21, 2022 12:00am February 15, 2023 8:19am Start: 05-21-2022 take 1000 mg by mout h once daily [place]-3 Fatty Acids Active 1000 MG PO DAILY May 21, 2022 1:00am Start: 05-21-2022 take 1000 mg by mout h once daily [place]-3 Fatty Acids Active 1000 MG PO DAILY May 21, 2022 12:00am [place]-3 Fatty Acids (Fish Oil) 300 MG capsule (20 sources) Start: 09-02-2015 End: 10-11-2015 take 1 capsule by mouth once daily [place]-3 Fatty Acids (Fish Oil) 300 MG capsule Discontinued 300 mg PO DAILY September 02, 2015 12:00am October 11, 2015 9:02pm Start: 09-02-2015 End: 10-11-2015 take 1 capsule by mouth once daily [place]-3 Fatty Acids (Fish Oil) 300 MG capsule Discontinued 300 MG PO DAILY September 01, 2015 11:00pm October 11, 2015 8:02pm Start: 09-02-2015 End: 10-11-2015 take 1 capsule by mouth once daily [place]-3 Fatty Acids (Fish Oil) 300 MG capsule Discontinued 300 MG PO DAILY September 02, 2015 12:00am October 11, 2015 9:02pm [place]-3 Fatty Acids Capsule (8 sources) Start: 05-21-2022 End: 02-15-2023 take 1 capsule by mouth once daily [place]-3 Fatty Acids Capsule Discontinued 1000 mg PO DAILY May 21, 2022 1:00am February 15, 2023 9:19am On Hold: NO LONGER TAKING omeprazole 20 mg delayed release oral capsule (20 sources) Proton Pump Inhibitor Start: 08-31-2015 End: 11-10-2017 take 1 capsule by mouth once daily Omeprazole 20 MG capsule Discontinued 20 mg PO DAILY August 31, 2015 12:00am November 10, 2017 2:26pm ondansetron 4 mg disintegrating oral tablet (20 sources) Serotonin-3 Receptor Antagonist Start: 08-31-2015 End: 11-10-2017 take 1 tablet by mouth every eight hours as needed for nausea Ondansetron 4 MG tablet Discontinued 4 mg PO EVERY 8 HOURS NEEDED as needed for Nausea 30 0 October 11, 2015 9:02pm November 10, 2017 2:27pm potassium chloride 20 meq extended release oral tablet (20 sources) Start: 10-11-2015 End: 11-10-2017 take 1 tablet by mouth once daily at mealtime Potassium Chloride 20 MEQ tablet Discontinued 20 meq PO DAILY WITH MEALS 30 0 October 11, 2015 12:00am November 10, 2017 2:27pm predniSONE 20 mg oral tablet (20 sources) Start: 10-21-2022 End: 03-13-2023 take 2 tablets by mouth once daily Prednisone 20 mg tablet Discontinued 40 mg PO DAILY 8 October 21, 2022 12:00am March 13, 2023 10:32am Start: 10-21-2022 End: 03-13-2023 take 40 mg by mouth once daily Prednisone Discontinued 40 MG PO DAILY October 21, 2022 12:00am March 13, 2023 10:32am 72 hr scopolamine 0.0139 mg/hr transdermal system (20 sources) Anticholinergic Start: 09-26-2015 End: 11-10-2017 Scopolamine Base 1.5 MG patch Discontinued 1.5 mg TD Every 3 Days 30 0 October 11, 2015 9:02pm November 10, 2017 2:27pm Turmeric extract (20 sources) Start: 09-02-2015 End: 10-11-2015 take 5000 g by mouth once daily Turmeric (Bulk) 5,000 GM Powder Discontinued 1 NMA PO DAILY September 02, 2015 12:00am October 11, 2015 9:02pm Start: 09-02-2015 End: 10-11-2015 Turmeric (Bulk) Discontinued 1 EACH PO DAILY September 01, 2015 11:00pm October 11, 2015 8:02pm Start: 09-02-2015 End: 10-11-2015 Turmeric (Bulk) Discontinued 1 EACH PO DAILY September 02, 2015 12:00am October 11, 2015 9:02pm Turmeric Root Extract 500 mg Capsule (8 sources) Start: 05-21-2022 End: 09-26-2024 take 1 capsule by mouth once daily Turmeric Root Extract 500 mg Capsule Discontinued 500 mg PO DAILY May 21, 2022 1:00am September 26, 2024 8:44am Start: 05-21-2022 take 1 capsule by mo uth once daily Turmeric Root Extract 500 mg Capsule Active 500 mg PO DAILY May 21, 2022 1:00am Zinc Lozenges 15 mg Lozenge (8 sources) Start: 05-21-2022 End: 09-26-2024 take 15 mg by mouth once daily Zinc Lozenges 15 mg Lozenge Discontinued 15 mg PO DAILY May 21, 2022 1:00am September 26, 2024 8:44am Start: 05-21-2022 take 15 mg by mouth once daily Zinc Lozenges 15 mg Lozenge Active 15 mg PO DAILY May 21, 2022 1:00am Problems Active Problems Problem Classification Problem Date Documented Da te Episodic/Chronic Acute cerebrovascular disease (11 sources) Cerebral infarction, unspecified; Translations: [Cerebral artery occlusion, unspecified with cerebral infarction] Onset: 02-15-2023 Chronic Acute myocardial infarction (20 sources) Acute non-ST segment elevation myocardial infarction; Translations: [Non-ST elevation (NSTEMI) myocardial infarction] 03-12-2023 Chronic Cancer of thyroid (1 source) Malignant neoplasm of thyroid gland; Translations: [Malignant neoplasm of thyroid gland] Onset: 5 Chronic Complications of surgical procedures or medical care (1 source) Postprocedural hypothyroidism; Translations: [Postprocedural hypothyroidism] Onset: 5 Chronic Conditions associated with dizziness or vertigo (2 sources) Dizziness; Translations: [Dizziness and giddiness] Episodic Coronary atherosclerosis and other heart disease (20 sources) Arteriosclerotic vascular disease; Translations: [Atherosclerotic heart disease of platinum coronary artery without angina pectoris] Onset: 5 03-16-2023 Chronic Diseases of mouth; excluding dental (20 sources) Aphthous ulceration of skin and/or mucous membrane; Translations: [Recurrent oral aphthae] 12-01-2017 Episodic Disorders of lipid metabolism (20 sources) Hyperlipidemia; Translations: [Hyperlipidemia, unspecified] Onset: 5 12-01-2017 Chronic Esophageal disorders (20 sources) Gastroesophageal reflux disease; Translations: [Gastro-esophageal reflux disease without esophagitis] 12-01-2017 Chronic Essential hypertension (20 sources) Benign essential hypertension; Translations: [Essential (primary) hypertension] Onset: 5 12-01-2017 Chronic Fluid and electrolyte disorders (1 source) Hypovolemia; Translations: [Hypovolemia] Episodic Genitourinary symptoms and ill-defined conditions (20 sources) Overflow incontinence of urine; Translations: [Stress incontinence (female) (male)] Chronic Genitourinary symptoms and ill-defined conditions (20 sources) Nocturia; Translations: [Nocturia] Episodic Heart valve disorders (16 sources) Aortic valve regurgitation; Translations: [Nonrheumatic aortic (valve) insufficiency] Onset: 5 10-11-2023 Chronic Mood disorders (8 sources) Depressive disorder; Translations: [Depression] 02-02-2024 Chronic Nausea and vomiting (1 source) Intractable nausea and vomiting; Translations: [Nausea with vomiting, unspecified] Episodic Occlusion or stenosis of precerebral arteries (15 sources) Basilar artery stenosis; Translations: [Occlusion and stenosis of basilar artery] Onset: 5 04-04-2024 Chronic Other circulatory disease (14 sources) Disorder of carotid artery; Translations: [Disorder of arteries and arterioles, unspecified] 08-24-2024 Chronic Other circulatory disease (1 source) Disorder of arteries and arterioles, unspecified; Translations: [Disorder of arteries and arterioles, unspecified] Onset: Chronic Other circulatory disease (4 sources) History of cerebrovascular accident; Translations: [Personal history of transient ischemic attack (TIA), and cerebral infarction without residual deficits] 11-23-2024 Episodic Other connective tissue disease (4 sources) Weakness of right facial muscle; Translations: [Facial weakness] 11-23-2024 Episodic Other gastrointestinal disorders (14 sources) Constipation; Translations: [Constipation, unspecified] 09-27-2024 Episodic Other gastrointestinal disorders (10 sources) Altered bowel function; Translations: [Change in bowel habit] 10-18-2024 Episodic Other gastrointestinal disorders (1 source) Change in bowel habit; Translations: [Change in bowel habit] Onset: Episodic Other hereditary and degenerative nervous system conditions (14 sources) Impaired cognition; Translations: [Mild cognitive impairment, so stated] 08-17-2023 Chronic Other hereditary and degenerative nervous system conditions (2 sources) Mild cognitive impairment, so stated; Translations: [Mild cognitive impairment, so stated] Onset: 5 08-17-2023 Chronic Other injuries and conditions due to external causes (20 sources) Excoriation of skin; Translations: [Other injury of unspecified body region, initial encounter] 02-24-2022 Episodic Comment on above: Cervical Other injuries and conditions due to external causes (2 sources) Other injury of unspecified body region, initial encounter; Translations: [Other and unspecified superficial injury of other, multiple, and unspecified sites, without mention of infection] Episodic Other liver diseases (1 source) Abnormal levels of other serum enzymes; Translations: [Abnormal levels of other serum enzymes] Onset: Episodic Other nervous system disorders (20 sources) Compression neuropathy of genitofemoral nerve; Translations: [Other nerve root and plexus disorders] 07-08-2022 Chronic Comment on above: improved and relieve d with walking Other nervous system disorders (1 source) Other nerve root and plexus disorders; Translations: [Other nerve root and plexus disorders] 07-08-2022 Chronic Other nervous system disorders (20 sources) Corrales's palsy; Translations: [Corrales's palsy] 12-01-2017 Episodic Other nervous system disorders (4 sources) Facial paresthesia; Translations: [Paresthesia of skin] 11-23-2024 Episodic Other nervous system disorders (2 sources) Paresthesia of skin; Translations: [Paresthesia of skin] Onset: 5 Episodic Other screening for suspected conditions (not mental disorders or infectious disease) (2 sources) Encounter for screening mammogram for malignant neoplasm of breast; Translations: [Encounter for screening mammogram for malignant neoplasm of breast] Onset: Episodic Prolapse of female genital organs (20 sources) Incomplete uterovaginal prolapse; Translations: [Incomplete uterovaginal prolapse] Chronic Residual codes; unclassified (2 sources) Acquired absence of both cervix and uterus; Translations: [Acquired absence of both cervix and uterus] 05-29-2022 Episodic Thyroid disorders (20 sources) Hypothyroidism; Translations: [Hypothyroidism, unspecified] 12-01-2017 Chronic Past or Other Problems Problem Classification Problem Date Documented Da te Episodic/Chronic Coronary atherosclerosis and other heart disease (20 sources) Stented coronary artery; Translations: [Presence of coronary angioplasty implant and graft] Onset: 03-12-2023 03-16-2023 Episodic Comment on above: Sunday [place] LIZETH 3X 22 mm to mid LAD 03/12/23;PCI of the proximal calcified left circumflex,complex ossified lesionWith predilatation using 2.5 x 15 mm balloon followed by lithotripsy /shockwave 3.0 x 12 mm treated/x 3Followed by placement of drug-eluting stent 3 x 18 mm up to 14 DORIS reduction of stenosis from calcified 80% stenosis to 0%.2. Successful PCI of the distal circumflex with predilatation using 2.5 x 15 mm balloon followed by placement of drug-eluting stent 3 x 183. Noted distal in-stent dissection in the OM branch/large OM1: subsequent placement of 2 x 15 mm drug-eluting stent [place] Other aftercare (1 source) Encounter for therapeutic drug level monitoring; Translations: [Encounter for therapeutic drug level monitoring] Onset: 06-09-2024 Episodic Other gastrointestinal disorders (1 source) Constipation, unspecified; Translations: [Constipation, unspecified] Onset: 10-02-2024 Episodic Results Test Name Value Interpretation Reference Range Facility Thyroglobulin w/Anti-TG ABon 01-01-2025 Anti-TG AB < 1.0 Normal 0.0-0.9 [facility] Comment on above: Result Comment: Thyr oglobulin Antibody measured by [facility] Methodology It should be noted that the presence of thyroglobulin antibodies may not be pathogenic nor diagnostic, especially at very low levels. The assay tablet technician has found that four percent of individuals without evidence of thyroid disease or autoimmunity will have positive TgAb levels up to 4 IU/mL. Performed By: #### L [id number] #### [facility] [address] [address] THYROGLOB QUANT < 0.1 Low 1.5-38.5 [facility] Comment on above: Result Comment: Acco rding to the National Academy of Clinical Biochemistry, the reference interval for Thyroglobulin (TG) should be related to euthyroid patients and not for patients who underwent thyroidectomy. TG reference intervals for these patients depend on the residual mass of the thyroid tissue left after surgery. Establishing a post-operative baseline is recommended. The assay limit of quantitation is 0.1 ng/mL Thyroglobulin measured by [facility] [place] [facility] Assay Performed at: [facility] [id number] Patient Admitting Clerk: Yunier Newton PhD, Phone: [phone] Performed By: #### L [id number] #### [facility] [address] [address] Thyroid Stim Hormone (TSH)on 12-29-2024 TSH 5.250 uIU/mL High 0.300-4.200 [facility] Comment on above: Performed By: #### L [id number] #### [facility] [address] [address] Anion gap in Serum or Plasma Ordered By: Tad Trimble on 11-24-2024 Anion gap [Moles/Vol] 14 mmol/L 5-15 [facility] BUN/creatinine ratioOrdered By: Tad Trimble on 11-24-2024 Urea nitrogen/Creatinine [Mass ratio] 24.1 mg/mg High 10-20 [facility] Basic Metabolic Profile (BMP )on 11-24-2024 BUN/CRE 24.1 RATIO High 10-20 [facility] Comment on above: Order Comment: ER DI DNT DRAW AT DUE TIME. PT IS NOW ON FLOOR. WILL DRAW TURNER Performed By: #### L [id number] #### [facility] [address] [facility] [address] Calcium [Mass/Vol] 9.1 mg/dL Normal 7.6-11.0 [facility] Comment on above: Order Comment: ER DI DNT DRAW AT DUE TIME. PT IS NOW ON FLOOR. WILL DRAW TURNER Performed By: #### L [id number] #### [facility] [address] [place], [address] Chloride [Moles/Vol] 104 mmol/L Normal 98-108 [facility] Comment on above: Order Comment: ER DI DNT DRAW AT DUE TIME. PT IS NOW ON FLOOR. WILL DRAW TURNER Performed By: #### L [id number] #### [facility] [address] [place], [address] CO2 [Moles/Vol] 20.0 mmol/L Low 21.0-32.0 [facility] Comment on above: Order Comment: ER DI DNT DRAW AT DUE TIME. PT IS NOW ON FLOOR. WILL DRAW TURNER Performed By: #### L [id number] #### [facility] [address] [place], [address] Creatinine [Mass/Vol] 0.78 mg/dL Normal 0.70-1.20 [facility] Comment on above: Order Comment: ER DI DNT DRAW AT DUE TIME. PT IS NOW ON FLOOR. WILL DRAW TURNER Performed By: #### L [id number] #### [facility] [address] [place], [address] ECRCL 55.18 ml/min Normal 50-250 [facility] Comment on above: Order Comment: ER DI DNT DRAW AT DUE TIME. PT IS NOW ON FLOOR. WILL DRAW TURNER Performed By: #### L [id number] #### [facility] [address] [place], [address] GAP 14 Normal 5-15 [facility] Comment on above: Order Comment: ER DI DNT DRAW AT DUE TIME. PT IS NOW ON FLOOR. WILL DRAW TURNER Performed By: #### L [id number] #### [facility] [address] [place], [address] GFR/1.73 sq M.predicted among non-blacks MDRD (S/P/Bld) [Vol rate/Area] 76 mL/min/{1.73_m2} Normal >60 [facility] Comment on above: Order Comment: ER DI DNT DRAW AT DUE TIME. PT IS NOW ON FLOOR. WILL DRAW TURNER Result Comment: mL/m in/1.73m2 CKD-EPI Creatinine Equation (2020) Performed By: #### L [id number] #### [facility] [address] [place], [address] Glucose [Mass/Vol] 94 mg/dL Normal 70-99 [facility] Comment on above: Order Comment: ER DI DNT DRAW AT DUE TIME. PT IS NOW ON FLOOR. WILL DRAW TURNER Performed By: #### L [id number] #### [facility] [address] [place], [address] Potassium [Moles/Vol] 4.1 mmol/L Normal 3.3-5.1 [facility] Comment on above: Order Comment: ER DI DNT DRAW AT DUE TIME. PT IS NOW ON FLOOR. WILL DRAW TURNER Performed By: #### L [id number] #### [facility] [address] [place], [address] Sodium [Moles/Vol] 138 mmol/L Normal 133-145 [facility] Comment on above: Order Comment: ER DI DNT DRAW AT DUE TIME. PT IS NOW ON FLOOR. WILL DRAW TURNER Performed By: #### L [id number] #### [facility] [address] [place], [address] Urea nitrogen [Mass/Vol] 19 mg/dL Normal 4-19 [facility] Comment on above: Order Comment: ER DI DNT DRAW AT DUE TIME. PT IS NOW ON FLOOR. WILL DRAW TURNER Performed By: #### L [id number] #### [facility] [address] [place], [address] Brain without Contraston Brain without Contrast [facility] Services [address] [place], [place] [address] Brain without Contrast MR#: [id number] Acct: [id number] Name: LILLIANA HUBER Rep #: [id number] : 1945 F 79 From: Al[place]so Tim PCP: Dr. Elis Cardenas DO Status: ADM LINA Study: Brain without Contrast Date of Exam: 11/24/24 Exam# [id number] Ordering Dr: Tad Trimble DO PROCEDURE: BRAIN WITHOUT CONTRAST 11/24/2024 REASON FOR EXAM: CVA RULE OUT TECHNIQUE: BRAIN WITHOUT CONTRAST Multiplanar and multisequence images were obtained. COMPARISON: Head CT 11/23/2024. FINDINGS: Brain: Diffusion-weighted images demonstrate no area of restricted diffusion. No intracranial hemorrhage, mass, or mass effect is seen. No extra-axial fluid collection is noted. Moderate bilateral cerebral and pontine white matter changes are seen, consistent with chronic ischemic changes of small-vessel disease. Ventricles: Mild generalized cerebral atrophy is seen, with symmetric ventricular enlargement consistent with the degree of atrophy Sinuses: Clear. Mastoids: Essentially clear MRI/Brain without Contrast IMPRESSION: 1. No acute intracranial process is seen. 2. Moderate bilateral cerebral and pontine white matter changes, consistent with chronic ischemic changes of small-vessel disease. 3. Mild generalized cerebral atrophy. Reading Location: [place] [address] CC: Dr. Tad Trimble DO; Dr. Elis Cardenas DO Enamel Dipper: Signed Normal [facility] CBC-Complete Blood Cnt No Di ffon 11-24-2024 Erythrocyte distribution width (RBC) [Ratio] 13.2 % Normal 11.6-14.6 [facility] Comment on above: Performed By: #### L [id number] #### [facility] [address] [place], [address] Hematocrit (Bld) [Volume fraction] 37.4 % Normal 37-47 [facility] Comment on above: Performed By: #### L [id number] #### [facility] [address] [place], [address] Hemoglobin (Bld) [Mass/Vol] 12.6 g/dL Normal 12.0-15.0 [facility] Comment on above: Performed By: #### L [id number] #### [facility] [address] [place], [address] MCH (RBC) [Entitic mass] 30.8 pg Normal 27.0-32.0 [facility] Comment on above: Performed By: #### L [id number] #### [facility] [address] [place], [address] MCHC (RBC) [Mass/Vol] 33.7 g/dL Normal 32-36 [facility] Comment on above: Performed By: #### L [id number] #### [facility] [address] [place], [address] MCV (RBC) [Entitic vol] 91.4 fL Normal 81-99 [facility] Comment on above: Performed By: #### L [id number] #### [facility] [address] [place], [address] Platelet mean volume (Bld) [Entitic vol] 9.3 fL Normal 6.2-12.0 [facility] Comment on above: Performed By: #### L [id number] #### [facility] [address] [place], [address] Platelets (Bld) [#/Vol] 195 10*3/uL Normal 150-450 [facility] Comment on above: Performed By: #### L [id number] #### [facility] [address] [place], [address] RBC (Bld) [#/Vol] 4.09 10*6/uL Low 4.2-5.4 [facility] Comment on above: Performed By: #### L [id number] #### [facility] [address] [place], [address] RDW SD 44.3 fl High 35.1-43.9 [facility] Comment on above: Performed By: #### L [id number] #### [facility] [address] [place], [address] WBC (Bld) [#/Vol] 4.6 10*3/uL Normal 4.4-11.0 [facility] Comment on above: Performed By: #### L [id number] #### [facility] [address] [place], [address] Calculated very low density lipoprotein (VLDL) cholesterol measurementOrdered By: Tad Trimble on 11-24-2024 Calculated very low density lipoprotein (VLDL) cholesterol measurement 45 mg/dL High 5-40 [facility] Carbon dioxide, total [Moles /volume] in Central venous bloodOrdered By: Tad Trimble on 11-24-2024 CO2 [Moles/Vol] 20.0 mmol/L Low 21.0-32.0 [facility] Chloride assayOrdered By: Haim Trimble on 11-24-2024 Chloride [Moles/Vol] 104 mmol/L 98-108 [facility] Echo Completeon 11-24-2024 Echo Complete [facility] [address] [place] [address] Echo Complete 11/24/24 1002 MR#: [id number] Acct: [id number] Name: LILLIANA HUBER Rep #: [id number] : 1945 79 From: Chet Hadley MD Attending Dr: Dr. Lynne Tabares, DO Status: ADM I NO Ordering Dr: Lynne Tabares DO Date: 11/24/24 Location: [facility] Sex: F C Admitted: 11/23/24 Reason For Study Reason For Study: TIA/CVA Procedure This was a 2D Doppler, Color Flow transthoracic echocardiogram. The study was technically difficult. Due to body habitus. Exam performed portable in patient room. Left Ventricle Normal left ventricle. Normal LV wall thickness. Left ventricular systolic function is normal. No regional wall motion abnormalities noted. Right Ventricle Normal right ventricular size and function. Tricuspid Valve The tricuspid valve is not well visualized. Normal tricuspid valve. Trivial tricuspid valve insufficiency. Unable to estimate RV systolic pressure due to insufficient tricuspid regurgitant envelope. Aortic Valve Mild diffuse aortic valve thickening. There is no aortic stenosis. Moderate (2+) anteriorly directed aortic valve insufficiency. Pulmonic Valve The pulmonic valve is not well visualized. Great Vessels The aortic root is not well visualized. Pericardium/Pleural No pericardial effusion. Epicardial fat. MMode/2D Measurements Calculations LVIDd: 4.3 cm IVSd: 0.93 cm Ao root diam: 3.3 cm LVIDs: 3.1 cm LVPWd: 0.94 cm FS: 27.3 % LAV(MOD-bp): 48.5 ml LVAd ap4: 25.5 cm2 LVAd ap2: 16.4 cm2 LAV(MOD-bp) Indexed: 26.3 ml/m2 LVLd ap4: 7.8 cm LVLd ap2: 7.1 cm LAV(MOD-sp2): 47.1 ml EDV(MOD-sp4): 69.6 ml EDV(MOD-sp2): 32.2 ml LAV(MOD-sp4): 47.1 ml EDV(sp4-el): 71.2 ml EDV(sp2-el): 32.1 ml LVAs ap4: 13.7 cm2 LVAs ap2: 8.8 cm2 LVLs ap4: 6.6 cm LVLs ap2: 6.1 cm ESV(MOD-sp4): 24.2 ml ESV(MOD-sp2): 11.2 ml ESV(sp4-el): 23.9 ml ESV(sp2-el): 10.7 ml EF(MOD-sp4): 65.2 % EF(MOD-sp2): 65.4 % EF(sp4-el): 66.4 % SV(MOD-sp4): 45.3 ml SV(MOD-sp2): 21.1 ml SV(sp4-el): 47.3 ml SI(MOD-sp4): 24.6 ml/m2 SI(MOD-sp2): 11.4 ml/m2 LA dimension(2D): 4.0 cm LA A4 area: 16.7 cm2 RA A4 area: 12.9 cm2 TAPSE: 2.3 cm Time Measurements MV dec time: 0.27 sec Doppler Measurements Calculations MV E max jw: 64.2 cm/sec Lat Peak E' Jw: 6.9 cm/sec Med Peak E' Jw: 5.6 cm/sec MV A max jw: 74.4 cm/sec E/E' lat: 9.3 E/E' med: 11.5 MV E/A: 0.86 MV V2 max: 84.1 cm/sec MV P1/2t max jw: 64.7 cm/sec Ao V2 max: 177.9 cm/sec MV max P.8 mmHg MV P1/2t: 77.8 msec Ao max P.7 mmHg MV V2 mean: 44.9 cm/sec MV dec slope: 243.5 cm/sec2 Ao V2 mean: 113.7 cm/sec MV mean P.97 mmHg Ao mean P.0 mmHg MV V2 VTI: 25.4 cm MVA(P1/2t): 2.8 cm2 Ao V2 VTI: 35.0 cm AV (velocity ratio): 0.62 AI max jw: 329.3 cm/sec LV V1 max: 107.6 cm/sec PA V2 max: 110.2 cm/sec AI max P.4 mmHg LV V1 max P.6 mmHg PA V2 mean: 71.1 cm/sec AI dec slope: 173.6 cm/sec2 LV V1 mean P.1 mmHg AI P1/2t: 555.5 msec LV V1 mean: 66.6 cm/sec LV V1 VTI: 21.7 cm ECHO/Echo Complete Interpretation Summary Normal left ventricular size, wall thickness, there is mild concentric LVH, no regional wall motion normality, normal LVEF with estimated ejection fraction of 55 to 60%. Grade 1 diastolic dysfunction. Normal right ventricular size and function. Mild diffuse aortic valve thickening. Moderate (2+) centrally directed aortic valve insufficiency, with pressure half-time of 344 ms. Ordering Physician: Lynne Tabares Referring Physician: Elis Cardenas Performed By: Rosanne Hays, DONNIE, RVT 11/24/24 1241 Date Chet Hadley MD CC: Dr. Lynne Tabares DO; Dr. Elis Cardenas DO Date Dictated: 11/24/24 1002 Date Transcribed: 11/24/24 1241 Enamel Dipper: Signed Normal [facility] Echocardiogram study reportO rdered By: Chet Hadley on 11-24-2024 Study report [facility] Cardiovascular Services [address] [place] [address] Echo Complete 11/24/24 1002 MR#: [id number] Acct: [id number] Name: LILLIANA HUBER RAYSHAWN Rep #:[id number] : 1945 79 From: Chet jang MD Attending Dr: Dr. Lynne Tabares DO S tatus: ADM LINA Ordering Dr: Lynne Tabares DO Date: 05/20 Location: [facility] Sex: F C Admitted: 11/23/24 Reason For Study Reason For Study: TIA/CVA Procedure This was a 2D Doppler, Color Flow transthoracic echocardiogram. The study was technically difficult. Due to body habitus. Exam performed portable in patient room. Left Ventricle Normal left ventricle. Normal LV wall thickness. Left ventricular systolic function is normal. No regional wall motion abnormalities noted. Right Ventricle Normal right ventricular size and function. Tricuspid Valve The tricuspid valve is not well visualized. Normal tricuspid valve. Trivial tricuspid valve insufficiency. Unable to estimate RV systolic pressure due to insufficient tricuspid regurgitant envelope. Aortic Valve Mild diffuse aortic valve thickening. There is no aortic stenosis. Moderate (2+)anteriorly directed aortic valve insufficiency. Pulmonic Valve The pulmonic valve is not well visualized. Great Vessels The aortic root is not well visualized. Pericardium/Pleural No pericardial effusion. Epicardial fat. MMode/2D Measurements & Calculations LVIDd: 4.3 cm IVSd: 0.93 cm Ao root diam: 3.3 cm LVIDs: 3.1 cm LVPWd: 0.94 cm FS: 27.3 % LAV(MOD-bp): 48.5 ml LVAd ap4: 25.5 cm2 LVAd ap2: 16.4 cm2 LAV(MOD-bp) Indexed: 26.3 ml/m2 LVLd ap4: 7.8 cm LVLd ap2: 7.1 cm LAV(MOD-sp2): 47.1 ml EDV(MOD-sp4): 69.6 ml EDV(MOD-sp2): 32.2 ml LAV(MOD-sp4): 47.1 ml EDV(sp4-el): 71.2 ml EDV(sp2-el): 32.1 ml LVAs ap4: 13.7 cm2 LVAs ap2: 8.8 cm2 LVLs ap4: 6.6 cm LVLs ap2: 6.1 cm ESV(MOD-sp4): 24.2 ml ESV(MOD-sp2): 11.2 ml ESV(sp4-el): 23.9 ml ESV(sp2-el): 10.7 ml EF(MOD-sp4): 65.2 % EF(MOD-sp2): 65.4 % EF(sp4-el): 66.4 % SV(MOD-sp4): 45.3 ml SV(MOD-sp2): 21.1 ml SV(sp4-el): 47.3 ml SI(MOD-sp4): 24.6 ml/m2 SI(MOD-sp2): 11.4 ml/m2 LA dimension(2D): 4.0 cm LA A4 area: 16.7 cm2 RA A4 area: 12.9 cm2 TAPSE: 2.3 cm Time Measurements MV dec time: 0.27 sec Doppler Measurements & Calculations MV E max jw: 64.2 cm/sec Lat Peak E' Jw: 6.9 cm/sec Med Peak E' Jw: 5.6 cm/sec MV A max jw: 74.4 cm/sec E/E' lat: 9.3 E/E' med: 11.5 MV E/A: 0.86 MV V2 max: 84.1 cm/sec MV P1/2t max jw: 64.7 cm/sec Ao V2 max: 177.9 cm/sec MV max P.8 mmHg MV P1/2t: 77.8 msec Ao max P.7 mmHg MV V2 mean: 44.9 cm/sec MV dec slope: 243.5 cm/sec2 Ao V2 mean: 113.7 cm/sec MV mean P.97 mmHg Ao mean P.0 mmHg MV V2 VTI: 25.4 cm MVA(P1/2t): 2.8 cm2 Ao V2 VTI: 35.0 cm AV (velocity ratio): 0.62 AI max jw: 329.3 cm/sec LV V1 max: 107.6 cm/sec PA V2 max: 110.2 cm/sec AI max P.4 mmHg LV V1 max P.6 mmHg PA V2 mean: 71.1 cm/sec AI dec slope: 173.6 cm/sec2 LV V1 mean P.1 mmHg AI P1/2t: 555.5 msec LV V1 mean: 66.6 cm/sec LV V1 VTI: 21.7 cm ECHO/Echo Complete Interpretation Summary Normal left ventricular size, wall thickness, there is mild concentric LVH, no regional wall motion normality, normal LVEF with estimated ejection fraction of 55 to 60%. Grade 1 diastolic dysfunction. Normal right ventricular size and function. Mild diffuse aortic valve thickening. Moderate (2+) centrally directed aortic valve insufficiency, with pressure half-time of 344 ms. Ordering Physician: Lynne Tabares Referring Physician: Elis Cardenas Performed By: Rosanne Hays, DONNIE, RVT 11/24/24 1241 Date _ Chet Hadley MD CC: Dr. Lynne Tabares DO; Dr. Elis Cardenas DO ~ Date Dictated: 11/24/24 1002 Date Transcribed: 11/24/24 1241 Enamel Dipper: Signed [facility] Other Erythrocyte distribution wid th ratioOrdered By: Tad Trimble on 11-24-2024 Erythrocyte distribution width (RBC) [Ratio] 13.2 % 11.6-14.6 [facility] Erythrocyte distribution wid th standard deviationOrdered By: Tad Trimble on 11-24-2024 Erythrocyte distribution width (RBC) [Ratio] 44.3 fl High 35.1-43.9 [facility] Glomerular filtration rate ( GFR) estimation/1.73 sq m using serum, plasma, or whole bOrdered By: Tad Trimble on 11-24-2024 GFR/1.73 sq M.predicted among non-blacks MDRD (S/P/Bld) [Vol rate/Area] 76 mL/min/{1.73_m2} >60 [facility] Comment on above: mL/min/1.73m2 CKD-EP I Creatinine Equation (2020) Hematocrit Auto (Bld) [Volum e fraction]Ordered By: Tad Trimble on 11-24-2024 Hematocrit (Bld) [Volume fraction] 37.4 % 37-47 [facility] Hemoglobin measurementOrdere d By: Tad Trimble on 11-24-2024 Hemoglobin (Bld) [Mass/Vol] 12.6 g/dL 12.0-15.0 [facility] LDL calc ser/plasOrdered By: Tad Trimble on 11-24-2024 Cholesterol in LDL [Mass/Vol] 75 mg/dL [facility] Comment on above: Kkexyuvtru=876-152 m g/dL & Higher Munx=635 mg/dL or greaterFriedwald Equation for LDL-C Lipid Profileon 11-24-2024 CHOL:HDL 3.50 Normal [facility] Comment on above: Order Comment: ER DI DNT DRAW AT DUE TIME. PT IS NOW ON FLOOR. WILL DRAW TURNER Performed By: #### L 499.0042 #### [facility] [address] [place], [place], [id number] Cholesterol [Mass/Vol] 168 mg/dL Normal <=200 [facility] Comment on above: Order Comment: ER DI DNT DRAW AT DUE TIME. PT IS NOW ON FLOOR. WILL DRAW TURNER Result Comment: Chol esterol level, Desirable <200 mg/dL Borderline high cholesterol 200-239 mg/dL High cholesterol >=240 mg/dL Recommendations of the NCEP Adult Treatment Panel for the following risk-cutoff thresholds for the [place] population. Performed By: #### L 499.0042 #### [facility] [address] [place], [address] Cholesterol in HDL [Mass/Vol] 48 mg/dL Normal [facility] Comment on above: Order Comment: ER DI DNT DRAW AT DUE TIME. PT IS NOW ON FLOOR. WILL DRAW TURNER Result Comment: Maria Del Rosario onal Cholesterol Education Program (NCEP) guidelines: <40 mg/dL: Low HDL-cholesterol (major risk factor for CHD) >= 60 mg/dL: High HDL-cholesterol (negative risk factor for CHD) HDL-cholesterol is affected by a number of factors, e.g. smoking, exercise, hormones, sex and age. Performed By: #### L 499.0042 #### [facility] [address] [place], [address] Cholesterol in LDL [Mass/Vol] 75 mg/dL Normal [facility] Comment on above: Order Comment: ER DI DNT DRAW AT DUE TIME. PT IS NOW ON FLOOR. WILL DRAW TURNER Result Comment: Bord ppmfhk=628-989 mg/dL Higher Vdmp=289 mg/dL or greater Friedwald Equation for LDL-C Performed By: #### L 499.0042 #### [facility] [address] [place], [address] Cholesterol in VLDL [Mass/Vol] 45 mg/dL High 5-40 [facility] Comment on above: Order Comment: ER DI DNT DRAW AT DUE TIME. PT IS NOW ON FLOOR. WILL DRAW TURNER Performed By: #### L 499.0042 #### [facility] [address] [place], [address] Triglyceride [Mass/Vol] 227 mg/dL High [facility] Comment on above: Order Comment: ER DI DNT DRAW AT DUE TIME. PT IS NOW ON FLOOR. WILL DRAW TURNER Result Comment: The drugs N-Acetylcysteine and Metamizole may falsely depress this assay. Normal range: <150 mg/dL Borderline High: 150-199 mg/dL High: 200-499 mg/dL Very High: >500 mg/dL Performed By: #### L 499.0042 #### [facility] [address] [place], [address] MCV (mean corpuscular volume ) determinationOrdered By: Tad Trimble on 08-01-2025 MCV (RBC) [Entitic vol] 91.4 fL 81-99 [facility] MR/CON.PCM.NEon 11-24-2024 MR/CON.PCM.NE [facility] Medical Records Department [address] [place] [address] Consultation - Neurology 11/24/24 1248 MR#: [id number] Acct: [id number] Name: LILLIANA HUBER Rep #: [id number] : 1945 79 From: Rachel Holman MD PCP: Dr. Elis Cardenas, DO Status:ADM LINA Location: [place] [address] Assessment and Plan: Neuro Assessment/Plan LILLIANA HUEBR, is a 79 woman with history of basilar stenosis, CAD, on ASA/Plavix/Statin, who presented to [facility] ED on 11/23/2024 with transient weird sensation in the R side of her face. SBP upon presentation is 179. MRI brain with no acute findings LDL 75 Unsure of etiology, could be related to blood pressure elevation SBP 179 since patient says this is very unusual for her.. Recommend blood pressure management With the description she had, less likely TIA. However she is already on ASA/Plavix/statin Risk factor management: BP <130/90, Statin for LDL <70, diabetes management with A1C< 7%, no smoking, and alcohol in moderation. F/u with PCP in 2 weeks. I personally attended this patient and spent a total time of 45 minutes evaluating this patient including clinical assessment, review of chart, medical history imaging, and determining appropriate treatment and workup. HPI Consult Data Date of Consult: 11/24/24 HPI Narrative HPI Narrative: LILLIANA HUBER, is a 79 F who presented to [facility] ED on 11/23/2024 with right facial numbness/tingling. 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 Patient lives at home with her . Yesterday, while writing checks, she had this weird feeling in the R side of her face, she is unsure how to describe it, it was not tingling, it was not numbness. It felt different. It happened suddenly. It stayed there for an hour, shortly after she arrived to the hospital, it disappeared, No headache, no blurry vision. She has no history of migraines. In the ER, SBP 179 CTH with no acute findings CTA head/neck showed known stenosis of the proximal basilar artery and distal left vertebral artery that were unchanged. In the ER her facial numbness improved from earlier MRI brain with no acute findings She doesn???t check her blood pressure at home, but she reports when she goes to the doctor???s office her BP is usually good she doesn???t remember the numbers but they tell her it is good. PHYSICAL EXAM Exam performed with help of the nurse/FREDY present with patient on Tele site NEURO: AAOx3, follows commands, no aphasia/dysarthria. EOMI, no gaze preference/nystagmus . Face asymmetric with R facial weakness which Is baseline for her, Intact facial sensation. Head turning intact. Sensation: intact to light touch all over Motor: All extremities antigravity Coordination: FTN intact bilaterally PFSH Medical History Coronary artery disease Hypertension Dyslipidemia Mild cognitive impairment Ischemic cardiomyopathy Arteriosclerotic cardiovascular disease Hearing loss, left Chest pain Stroke/cerebrovascul ar accident Compression neuropathy of genitofemoral nerve Stress incontinence Wears hearing aid Wears glasses Post-menopausal Depression Thyroid disease Arthritis High cholesterol Non-smoker Leg cramps History of stress test History of echocardiogram Uterovaginal prolapse, incomplete TIA (transient ischemic attack) History of stroke Cancer GERD (gastroesophageal reflux disease) Menieres disease Corrales's palsy Aphthous ulcer of mouth Hypothyroidism Hyperlipidemia Benign essential hypertension Home Medications ???Medication ???Instructions ???Recorded ???Last Taken ???Type ascorbic acid (vitamin C) 500 mg 500 mg PO DAILY 05/21/22 Unknown H istory tablet (Vitamin C) cholecalciferol (vitamin D3) 125 125 mcg PO DAILY 05/21/22 Unknown History mcg (5,000 unit) tablet (Vitamin D3) aspirin 81 mg tablet,delayed 81 mg PO DAILY@0800 #90 tabs 03/1305/12/23 Rx release Handicap Placard #1 ea 04/23/23 Unknown Rx levothyroxine 137 mcg tablet 137 mcg PO DAILY 04/23/23 Unknown History lisinopril 20 mg tablet 20 mg PO DAILY #90 tabs 10/11/23 U nknown Rx atorvastatin 40 mg tablet 40 mg PO QDAY #90 tabs 04/25/24 Un known Rx atenolol 25 mg tablet 25 mg PO DAILY #90 tabs 08/07/24 U nknown Rx amlodipine 10 mg tablet 10 mg PO QDAY #90 tabs 08/24/24 Un known Rx lysine 1,000 mg tablet 500 mg PO DAILY 09/26/24 Unknown H istory zinc lozenges 15 (more content not included)... Normal [facility] Magnetic resonance imaging r eportOrdered By: Alfonso Dent on 11-24-2024 Study report [facility] Imaging Services [address] [place] [address] Brain without Contrast MR#: [id number] Acct: [id number] Name: LILLIANA HUBER Rep #: [id number] : 1945 F 79 From: Michael Dent MD PCP: Dr. Elis Cardenas, Status: ADM LINA Study:Brain without Contrast Date of Exam: 11/24/24 Exam# [id number] Ordering Dr: Tad Gregorio DO PROCEDURE: BRAIN WITHOUT CONTRAST 11/24/2024 REASON FOR EXAM: CVA RULE OUT TECHNIQUE: BRAIN WITHOUT CONTRAST Multiplanar and multisequence images were obtained. COMPARISON: Head CT 11/23/2024. FINDINGS: Brain: Diffusion-weighted images demonstrate no area of restricted diffusion. No intracranial hemorrhage, mass, or mass effect is seen. No extra-axial fluid collection is noted. Moderate bilateral cerebral and pontine white matter changes are seen, consistent with chronic ischemic changes of small-vessel disease. Ventricles: Mild generalized cerebral atrophy is seen, with symmetric ventricular enlargement consistent with the degree of atrophy Sinuses: Clear. Mastoids: Essentially clear MRI/Brain without Contrast IMPRESSION: 1. No acute intracranial process is seen. 2. Moderate bilateral cerebral and pontine white matter changes, consistent withchronic ischemic changes of small-vessel disease. 3. Mild generalized cerebral atrophy. Reading Location: [place] [address] CC: Dr. Tad Trimble DO; Dr. Elis Cardenas DO ~ Enamel Dipper: Signed [facility] Mean corpuscular hemoglobin (MCH) determinationOrdered By: Tad Trimble on 11-24-2024 MCH (RBC) [Entitic mass] 30.8 pg 27.0-32.0 [facility] Mean corpuscular hemoglobin concentration (MCHC) determinationOrdered By: Tad Trimble on 11-24-2024 MCHC (RBC) [Mass/Vol] 33.7 g/dL 32-36 [facility] Mean platelet volume determi nationOrdered By: Tad Trimble on 11-24-2024 Platelet mean volume (Bld) [Entitic vol] 9.3 fL 6.2-12.0 [facility] Platelet countOrdered By: Haim Trimble on 11-24-2024 Platelets (Bld) [#/Vol] 195 10*3/uL 150-450 [facility] Potassium measurement (mass/ volume)Ordered By: Tad Trimble on 11-24-2024 Potassium (Unsp spec) [Mass/Vol] 4.1 mmol/L 3.3-5.1 [facility] RBC Auto (Bld) [#/Vol]Ordere d By: Tad Trimble on 11-24-2024 RBC (Bld) [#/Vol] 4.09 10*6/uL Low 4.2-5.4 [facility] Screening total cholesterol/ high density lipoprotein (HDL) cholesterol ratioOrdered By: Tad Trimble on 11-24-2024 Cholesterol.total/Choles terol in HDL [Mass ratio] 3.50 {ratio} [facility] Serum creatinine measurement (mass/volume)Ordered By: Tad Trimble on 11-24-2024 Creatinine [Mass/Vol] 0.78 mg/dL 0.70-1.20 [facility] Serum glucose measurement (m ass/volume)Ordered By: Tad Trimble on 11-24-2024 Glucose [Mass/Vol] 94 mg/dL 70-99 [facility] Serum or plasma calcium idris urement (mass/volume)Ordered By: Tad Trimble on 11-24-2024 Calcium [Mass/Vol] 9.1 mg/dL 7.6-11.0 [facility] Serum or plasma cholesterol in HDL measurement (mass/volume)Ordered By: Tad Trimble on 11-24-2024 Cholesterol in HDL [Mass/Vol] 48 mg/dL >40 [facility] Comment on above: National Cholesterol Education Program (NCEP) guidelines:<40 mg/dL: Low HDL-cholesterol (major risk factor for CHD)>= 60 mg/dL: High HDL-cholesterol (negative risk factor for CHD)HDL-cholesterol is affected by a number of factors, e.g. smoking, exercise, hormones, sex and age. Serum or plasma cholesterol measurement (mass/volume)Ordered By: Tad Trimble on 11-24-2024 Cholesterol [Mass/Vol] 168 mg/dL <201 [facility] Comment on above: Cholesterol level, D esirable <200 mg/dLBorderline high cholesterol 200-239 mg/dLHigh cholesterol >=240 mg/dLRecommendations of the NCEP Adult Treatment Panel for the following risk-cutoff thresholds for the [place] population. Serum or plasma urea nitroge n measurement (mass/volume)Ordered By: Tad Trimble on 11-24-2024 Urea nitrogen [Mass/Vol] 19 mg/dL 4-19 [facility] Sodium levelOrdered By: Arnulfo Trimble on 11-24-2024 Sodium [Moles/Vol] 138 mmol/L 133-145 [facility] Triglycerides measurementOrd ered By: Tad Trimble on 11-24-2024 Triglyceride [Mass/Vol] 227 mg/dL High <199 [facility] Comment on above: The drugs N-Acetylcy steine and Metamizole may falsely depress this assay. Normal range: <150 mg/dLBorderline High: 150-199 mg/dLHigh: 200-499 mg/dLVery High: >500 mg/dL White blood cell (WBC) count Ordered By: Tad Trimble on 11-24-2024 WBC (Bld) [#/Vol] 4.6 10*3/uL 4.4-11.0 [facility] 12 Lead EKGon 11-23-2024 12 Lead EKG [facility] Cardiovascular Services [address] [place] [address] 12 Lead EKG 11/23/24 1615 MR#: [id number] Acct: [id number] Name: LILLIANA HUBER Rep #: [id number] : 1945 79 From: Joseph Valdivia MD Attending Dr: Dr. Lynne Tabares DO Status: DIS I NO Ordering Dr: Arnulfo Perrin MD Date: 11/23/24 Location: [facility] Sex: F C Admitted: 11/23/24 Test Reason : STROKE Blood Pressure : */* mmHG Vent. Rate : 57 BPM Atrial Rate : 57 BPM P-R Int : 224 ms QRS Dur : 88 ms QT Int : 414 ms P-R-T Axes : 47 24 93 degrees QTcB Int : 402 ms Sinus bradycardia with 1st degree A-V block Nonspecific ST and T wave abnormality Abnormal ECG Confirmed by JHOAN GOULD, JOSEPH ([id number]), editor trade journal FRANK FU ([id number]) on 11/27/2024 8:22:49 AM Referred By: Confirmed By: JOSEPH VALDIVIA MD 11/27/24821 Date Joseph Valdivia MD CC: Dr. Arnulfo Perrin MD; Dr. Lynne Tabares DO; Dr. Elis Cardenas DO Signed Normal [facility] Absolute lymphocyte countOrd ered By: Arnulfo Perrin on 11-23-2024 Lymphocytes Auto (Unsp spec) [#/Vol] 1.33 10*3/uL 0.83-4.51 [facility] Absolute neutrophil countOrd ered By: Arnulfo Perrin on 11-23-2024 Neutrophils (Bld) [#/Vol] 2.9 10*3/uL 2.0-7.7 [facility] Activated partial thrombopla stin time (aPTT) in platelet poor plasma by coagulation aOrdered By: Arnulfo Perrin on 11-23-2024 aPTT Coag (PPP) [Time] 29.0 s 24.1-36.2 [facility] Anion gap in Serum or Plasma Ordered By: Arnulfo Perrin on 11-23-2024 Anion gap [Moles/Vol] 8 mmol/L 5-15 [facility] Automated lymphocyte count a s percentage of total leukocytesOrdered By: Arnulfo Perrin on 11-23-2024 Lymphocytes/100 WBC Auto (Unsp spec) 26.5 % 19-41 [facility] BUN/creatinine ratioOrdered By: Arnulfo Perrin on 11-23-2024 Urea nitrogen/Creatinine [Mass ratio] 22.2 mg/mg High 10-20 [facility] Basic Metabolic Profile (BMP )on 11-23-2024 BUN/CRE 22.2 RATIO High - [facility] Comment on above: Performed By: #### L 300.3900, L500.2500, L501.4021, L300.4310, L100.0100 #### [facility] [address] [place], [address] Calcium [Mass/Vol] 8.3 mg/dL Normal 7.6-11.0 [facility] Comment on above: Performed By: #### L 300.3900, L500.2500, L501.4021, L300.4310, L100.0100 #### [facility] [address] [place], [address] Chloride [Moles/Vol] 106 mmol/L Normal 98-108 [facility] Comment on above: Performed By: #### L 300.3900, L500.2500, L501.4021, L300.4310, L100.0100 #### [facility] Laboratory [address] [place], [address] CO2 [Moles/Vol] 21.7 mmol/L Normal 21.0-32.0 [facility] Comment on above: Performed By: #### L 300.3900, L500.2500, L501.4021, L300.4310, L100.0100 #### [facility] Laboratory [address] [place], [address] Creatinine [Mass/Vol] 0.75 mg/dL Normal 0.70-1.20 [facility] Comment on above: Performed By: #### L 300.3900, L500.2500, L501.4021, L300.4310, L100.0100 #### [facility] Laboratory [address] [place], [address] ECRCL 57.03 ml/min Normal 50-250 [facility] Comment on above: Performed By: #### L 300.3900, L500.2500, L501.4021, L300.4310, L100.0100 #### [facility] Laboratory [address] [place], [address] GAP 8 Normal 5-15 [facility] Comment on above: Performed By: #### L 300.3900, L500.2500, L501.4021, L300.4310, L100.0100 #### [facility] Laboratory [address] [place], [address] GFR/1.73 sq M.predicted among non-blacks MDRD (S/P/Bld) [Vol rate/Area] 80 mL/min/{1.73_m2} Normal >60 [facility] Comment on above: Result Comment: mL/m in/1.73m2 CKD-EPI Creatinine Equation (2020) Performed By: #### L 300.3900, L500.2500, L501.4021, L300.4310, L100.0100 #### [facility] Laboratory [address] [place], [address] Glucose [Mass/Vol] 95 mg/dL Normal 70-99 [facility] Comment on above: Performed By: #### L 300.3900, L500.2500, L501.4021, L300.4310, L100.0100 #### [facility] Laboratory [address] [place], [address] Potassium [Moles/Vol] 4.2 mmol/L Normal 3.3-5.1 [facility] Comment on above: Performed By: #### L 300.3900, L500.2500, L501.4021, L300.4310, L100.0100 #### [facility] Laboratory [address] [place], [address] Sodium [Moles/Vol] 136 mmol/L Normal 133-145 [facility] Comment on above: Performed By: #### L 300.3900, L500.2500, L501.4021, L300.4310, L100.0100 #### [facility] Laboratory [address] [place], [address] Urea nitrogen [Mass/Vol] 17 mg/dL Normal 4-19 [facility] Comment on above: Performed By: #### L 300.3900, L500.2500, L501.4021, L300.4310, L100.0100 #### [facility] Laboratory [address] [place], [address] Basophil percentageOrdered B y: Arnulfo Perrin on 11-23-2024 Basophils/100 WBC (Bld) 1.0 % 0-1 [facility] Bedside Glucoseon 11-23-2024 FINGERSTICK GLU 98 mg/dL Normal 74-106 [facility] Comment on above: Result Comment: JAYLIN PEREZ OF PATIENT CARE PER NURSING PROTOCOL Performed By: #### L 499.0042 #### [facility] Laboratory [address] [place], [address] CBC W/Diff, Automatedon - Absolute Lymph 1.33 X10 3/uL Normal 0.83-4.51 [facility] Comment on above: Performed By: #### L 300.3900, L500.2500, L501.4021, L300.4310, L100.0100 #### [facility] Laboratory [address] [place], [address] Absolute Neut 2.9 X10 3/uL Normal 2.0-7.7 [facility] Comment on above: Performed By: #### L 300.3900, L500.2500, L501.4021, L300.4310, L100.0100 #### [facility] Laboratory [address] [place], [address] Basophils/100 WBC (Bld) 1.0 % Normal 0-1 [facility] Comment on above: Performed By: #### L 300.3900, L500.2500, L501.4021, L300.4310, L100.0100 #### [facility] Laboratory [address] [place], [address] Eosinophils/100 WBC (Bld) 3.6 % Normal 0-5 [facility] Comment on above: Performed By: #### L 300.3900, L500.2500, L501.4021, L300.4310, L100.0100 #### [facility] Laboratory [address] [place], [address] Erythrocyte distribution width (RBC) [Ratio] 13.0 % Normal 11.6-14.6 [facility] Comment on above: Performed By: #### L 300.3900, L500.2500, L501.4021, L300.4310, L100.0100 #### [facility] Laboratory [address] [place], [address] Hematocrit (Bld) [Volume fraction] 34.6 % Low 37-47 [facility] Comment on above: Performed By: #### L 300.3900, L500.2500, L501.4021, L300.4310, L100.0100 #### [facility] Laboratory [address] [place], [address] Hemoglobin (Bld) [Mass/Vol] 11.8 g/dL Low 12.0-15.0 [facility] Comment on above: Performed By: #### L 300.3900, L500.2500, L501.4021, L300.4310, L100.0100 #### [facility] Laboratory [address] [place], [address] IG% 0.800 Normal 0.0-0.9 [facility] Comment on above: Result Comment: IG% - Immature Granulocytes (promyelocytes, myelocytes and metamyelocytes) > 1% indicates that a LEFT SHIFT is Present. Performed By: #### L 300.3900, L500.2500, L501.4021, L300.4310, L100.0100 #### [facility] Laboratory [address] [place], [address] Lymphocytes/100 WBC (Bld) 26.5 % Normal 19-41 [facility] Comment on above: Performed By: #### L 300.3900, L500.2500, L501.4021, L300.4310, L100.0100 #### [facility] Laboratory [address] [place], [address] MCH (RBC) [Entitic mass] 31.1 pg Normal 27.0-32.0 [facility] Comment on above: Performed By: #### L 300.3900, L500.2500, L501.4021, L300.4310, L100.0100 #### [facility] Laboratory [address] [place], [address] MCHC (RBC) [Mass/Vol] 34.1 g/dL Normal 32-36 [facility] Comment on above: Performed By: #### L 300.3900, L500.2500, L501.4021, L300.4310, L100.0100 #### [facility] Laboratory [address] [place], [address] MCV (RBC) [Entitic vol] 91.1 fL Normal 81-99 [facility] Comment on above: Performed By: #### L 300.3900, L500.2500, L501.4021, L300.4310, L100.0100 #### [facility] Laboratory [address] [place], [address] Monocytes/100 WBC (Bld) 11.0 % High 0-10 [facility] Comment on above: Performed By: #### L 300.3900, L500.2500, L501.4021, L300.4310, L100.0100 #### [facility] Laboratory [address] [place], [address] Neutrophils/100 WBC (Bld) 57.1 % Normal 47-70 [facility] Comment on above: Performed By: #### L 300.3900, L500.2500, L501.4021, L300.4310, L100.0100 #### [facility] Laboratory [address] [place], [address] Nucleated RBC (Bld) [#/Vol] 0 10*3/uL Normal 0-5 [facility] Comment on above: Performed By: #### L 300.3900, L500.2500, L501.4021, L300.4310, L100.0100 #### [facility] Laboratory [address] [place], [address] Platelet mean volume (Bld) [Entitic vol] 9.1 fL Normal 6.2-12.0 [facility] Comment on above: Performed By: #### L 300.3900, L500.2500, L501.4021, L300.4310, L100.0100 #### [facility] Laboratory [address] [place], [address] Platelets (Bld) [#/Vol] 179 10*3/uL Normal 150-450 [facility] Comment on above: Performed By: #### L 300.3900, L500.2500, L501.4021, L300.4310, L100.0100 #### [facility] Laboratory [address] [place], [address] RBC (Bld) [#/Vol] 3.80 10*6/uL Low 4.2-5.4 [facility] Comment on above: Performed By: #### L 300.3900, L500.2500, L501.4021, L300.4310, L100.0100 #### [facility] Laboratory [address] [place], [address] RDW SD 42.8 fl Normal 35.1-43.9 [facility] Comment on above: Performed By: #### L 300.3900, L500.2500, L501.4021, L300.4310, L100.0100 #### [facility] Laboratory [address] [place], [address] WBC (Bld) [#/Vol] 5.0 10*3/uL Normal 4.4-11.0 [facility] Comment on above: Performed By: #### L 300.3900, L500.2500, L501.4021, L300.4310, L100.0100 #### [facility] Laboratory [address] [place], [address] Carbon dioxide, total [Moles /volume] in Central venous bloodOrdered By: Arnulfo Perrin on 11-23-2024 CO2 [Moles/Vol] 21.7 mmol/L 21.0-32.0 [facility] Chloride assayOrdered By: Haim Perrin on 11-23-2024 Chloride [Moles/Vol] 106 mmol/L 98-108 [facility] Emergency Department Summary on 11-23-2024 Emergency Department Summary [facility] Medical Records Department [address] [place] [address] Emergency Department Summary 11/23/24 MR#: [id number] Acct: [id number] Name: LILLINAA HUBER Rep #: [id number] : 1945 79 From: Arnulfo Perrin MD PCP: Dr. Elis Cardenas, DO Status:REG ER Location: ED HPI History of Present Illness Chief Complaint: Neuro S/Sx Narrative Narrative: 79-year-old female past medical history of previous stroke with residual facial asymmetry on the left side presents with hazy feeling of her right face. She states this started approximately an hour prior to arrival. 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 She denies any headaches. No paresthesias of arms or legs. She states that she was going to lay down for a nap to see if this feeling improved, but with her history of stroke, decided against it. She states she takes a blood thinner but cannot recall which one, but states Plavix sounds familiar to her. She denies taking Eliquis or Xarelto. No exacerbating or alleviating factors. [facility] Medical History Coronary artery disease Hypertension Dyslipidemia Mild cognitive impairment Ischemic cardiomyopathy Arteriosclerotic cardiovascular disease Hearing loss, left Chest pain Stroke/cerebrovascul ar accident Compression neuropathy of genitofemoral nerve Stress incontinence Wears hearing aid Wears glasses Post-menopausal Depression Thyroid disease Arthritis High cholesterol Non-smoker Leg cramps History of stress test History of echocardiogram Uterovaginal prolapse, incomplete TIA (transient ischemic attack) History of stroke Cancer GERD (gastroesophageal reflux disease) Menieres disease Corrales's palsy Aphthous ulcer of mouth Hypothyroidism Hyperlipidemia Benign essential hypertension Home Medications ???Medication ???Instructions ???Recorded ???Last Taken ???Type ascorbic acid (vitamin C) 500 mg 500 mg PO DAILY 05/21/22 Unknown H istory tablet (Vitamin C) cholecalciferol (vitamin D3) 125 125 mcg PO DAILY 05/21/22 Unknown History mcg (5,000 unit) tablet (Vitamin D3) aspirin 81 mg tablet,delayed 81 mg PO DAILY@0800 #90 tabs 03/1305/12/23 Rx release Handicap Placard #1 ea 04/23/23 Unknown Rx levothyroxine 137 mcg tablet 137 mcg PO DAILY 04/23/23 Unknown History lisinopril 20 mg tablet 20 mg PO DAILY #90 tabs 10/11/23 U nknown Rx atorvastatin 40 mg tablet 40 mg PO QDAY #90 tabs 04/25/24 Un known Rx atenolol 25 mg tablet 25 mg PO DAILY #90 tabs 08/07/24 U nknown Rx amlodipine 10 mg tablet 10 mg PO QDAY #90 tabs 08/24/24 Un known Rx lysine 1,000 mg tablet 500 mg PO DAILY 09/26/24 Unknown H istory zinc lozenges 15 mg 50 mg PO DAILY 09/26/24 Unknown Hi story clopidogrel 75 mg tablet 75 mg PO DAILY #90 TABLETS 5 Unknown Rx citalopram 10 mg tablet 10 mg PO DAILY 11/23/24 Unknown Hi story ticagrelor 90 mg tablet (Brilinta) 90 mg PO DAILY 11/23/24 Unknown History Allergy/AdvReac Type Severity Reaction Status Date / Time Sulfa (Sulfonamide Allergy Intermediate Rash Verified 11/23/24 15:20 Antibiotics) pepper (genus Capsicum) Allergy Swelling Verified 11/23/24 15:20 adhesive tape AdvReac Intermediate Rash Verified 11/23/24 15:20 Penicillins AdvReac Unknown Rash Verified 11/23/24 15:20 Family History Mother Heart disease Surgical History Stented coronary artery (05/12/23) Status post hysterectomy with oophorectomy Hx of surgical procedure H/O tubal ligation H/O dilation and curettage H/O breast biopsy Hx of colonoscopy History of thyroidectomy H/O hernia repair Social History Smoking Status: Never smoker alcohol intake: never substance use type: does not use caffeine: Yes Type: coffee Number of servings: 1 seatbelt use: always do you feel safe at home: Yes additional social history: - [place] ROS ROS ED ROS Narrative Review of systems positive for strange feeling of right face as described by patient. No paresthesias of arms or legs. No headache. No chest pain or shortness of breath or other symptoms. EXAM Physical Exam Narrative Exam Narrative: Afebrile. Vital signs noted. Nontoxic-appearing. Cardiovascular examination feels regular rate and rhythm. Lungs are clear to auscultation bilaterally. Abdomen is soft and nontender with positive bowel sounds. Neurological examination shows chronic left-sided facial asymmetry/facial droop. NIH stroke scale 1 for this, but no right-sided facial droop. Const Vital Signs: 11/23/24 15:18 11/23/24 15:57 11/23/24 15:57 Temperature 98.2 F Tem (more content not included)... Normal [facility] Eosinophil percentageOrdered By: Arnulfo Perrin on 11-23-2024 Eosinophils/100 WBC (Bld) 3.6 % 0-5 [facility] Erythrocyte distribution wid th ratioOrdered By: Arnulfo Perrin on 11-23-2024 Erythrocyte distribution width (RBC) [Ratio] 13.0 % 11.6-14.6 [facility] Erythrocyte distribution wid th standard deviationOrdered By: Arnulfo Perrin on 11-23-2024 Erythrocyte distribution width (RBC) [Ratio] 42.8 fl 35.1-43.9 [facility] Glomerular filtration rate ( GFR) estimation/1.73 sq m using serum, plasma, or whole bOrdered By: Arnulfo Perrin on 11-23-2024 GFR/1.73 sq M.predicted among non-blacks MDRD (S/P/Bld) [Vol rate/Area] 80 mL/min/{1.73_m2} >60 [facility] Comment on above: mL/min/1.73m2 CKD-EP I Creatinine Equation (2020) [facility] deOrdered By: Arnulfo Perrin on 11-23-2024 Glucose [Mass/Vol] 98 mg/dL 74-106 [facility] Comment on above: MANAGEMENT OF PATIEN T CARE PER NURSING PROTOCOL H AND P Exam - Hospitaliston 11-23-2024 H&P Exam - Hospitalist [facility] Medical Records Department [address] [place] [address] H P Exam - Hospitalist 11/23/24 1716 MR#: [id number] Acct: [id number] Name: LILLIANA HUBER RAYSHAWN Rep #: [id number] : 1945 79 From: Tad Trimble DO PCP: Dr. Elis Cardenas, DO Status:ADM [facility]INA Location: [place] [address] HPI - General General Date of Admission: 11/23/24 Date of Service: 11/23/24 Chief Complaint: Right facial numbness/tingling HPI Narrative LILLIANA HUBER, is a 79 F who presented to [facility] ED on 11/23/2024 with right facial numbness/tingling. 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 Patient lives at home with her . Today we will writing checks she states that her right face began to feel funny. She denied any arm or leg paresthesias or any motor symptoms. Denied any headache. Because of her vascular history, she came in for further evaluation. In the ED she was initially hypertensive to the 170s systolic but otherwise stable on room air at rest. CBC and BMP were benign. CT brain was unremarkable. CTA head/neck showed showed known stenosis of the proximal basilar artery and distal left vertebral artery that were unchanged. NIH score of 1. However, given her history neurology recommended admission and MRI brain for further evaluation. Hospitalist was then contacted for admission. I saw the patient at bedside in the ED, present. Patient was sitting back comfortably in bed, in no acute distress. She was alert and oriented x 3 though she did have some tangential speech noted with answering questions for me. She reported mild right facial numbness currently, improved from earlier today. Denied any other acute concerns currently. Will be admitted for further management. [facility] Medical History Coronary artery disease Hypertension Dyslipidemia Mild cognitive impairment Ischemic cardiomyopathy Arteriosclerotic cardiovascular disease Hearing loss, left Chest pain Stroke/cerebrovascul ar accident Compression neuropathy of genitofemoral nerve Stress incontinence Wears hearing aid Wears glasses Post-menopausal Depression Thyroid disease Arthritis High cholesterol Non-smoker Leg cramps History of stress test History of echocardiogram Uterovaginal prolapse, incomplete TIA (transient ischemic attack) History of stroke Cancer GERD (gastroesophageal reflux disease) Menieres disease Corrales's palsy Aphthous ulcer of mouth Hypothyroidism Hyperlipidemia Benign essential hypertension Home Medications ???Medication ???Instructions ???Recorded ???Last Taken ???Type ascorbic acid (vitamin C) 500 mg 500 mg PO DAILY 05/21/22 Unknown H istory tablet (Vitamin C) cholecalciferol (vitamin D3) 125 125 mcg PO DAILY 05/21/22 Unknown History mcg (5,000 unit) tablet (Vitamin D3) aspirin 81 mg tablet,delayed 81 mg PO DAILY@0800 #90 tabs 03/1305/12/23 Rx release Handicap Placard #1 ea 04/23/23 Unknown Rx levothyroxine 137 mcg tablet 137 mcg PO DAILY 04/23/23 Unknown History lisinopril 20 mg tablet 20 mg PO DAILY #90 tabs 10/11/23 U nknown Rx atorvastatin 40 mg tablet 40 mg PO QDAY #90 tabs 04/25/24 Un known Rx atenolol 25 mg tablet 25 mg PO DAILY #90 tabs 08/07/24 U nknown Rx amlodipine 10 mg tablet 10 mg PO QDAY #90 tabs 08/24/24 Un known Rx lysine 1,000 mg tablet 500 mg PO DAILY 09/26/24 Unknown H istory zinc lozenges 15 mg 50 mg PO DAILY 09/26/24 Unknown Hi story clopidogrel 75 mg tablet 75 mg PO DAILY #90 TABLETS 5 Unknown Rx citalopram 10 mg tablet 10 mg PO DAILY 11/23/24 Unknown Hi story ticagrelor 90 mg tablet (Brilinta) 90 mg PO DAILY 11/23/24 Unknown History Allergy/AdvReac Type Severity Reaction Status Date / Time Sulfa (Sulfonamide Allergy Intermediate Rash Verified 11/23/24 15:20 Antibiotics) pepper (genus Capsicum) Allergy Swelling Verified 11/23/24 15:20 adhesive tape AdvReac Intermediate Rash Verified 11/23/24 15:20 Penicillins AdvReac Unknown Rash Verified 11/23/24 15:20 Family History Mother Heart disease Surgical History Stented coronary artery (05/12/23) Status post hysterectomy with oophorectomy Hx of surgical procedure H/O tubal ligation H/O dilation and curettage H/O breast biopsy Hx of colonoscopy History of thyroidectomy H/O hernia repair Social History Smoking Status: Never smoker alcohol intake: never substance use (more content not included)... Normal [facility] Hematocrit Auto (Bld) [Volum e fraction]Ordered By: Arnulfo Perrin on 11-23-2024 Hematocrit (Bld) [Volume fraction] 34.6 % Low 37-47 [facility] Hemoglobin A1con 11-23-2024 HbA1c (Bld) [Mass fraction] 5.6 % Normal <=5.6 [facility] Comment on above: Result Comment: Norm al < 5.7 % Prediabetic 5.7 - 6.4 % Diabetic >or= 6.5 % Please note range changes. Performed By: #### L 300.3900, L500.2500, L501.4021, L300.4310, L100.0100 #### [facility] Laboratory [address] [place], [place], [address] Hemoglobin A1c percentageOrd ered By: Tad Trimble on 11-23-2024 HbA1c (Bld) [Mass fraction] 5.6 % <5.7 [facility] Comment on above: Normal < 5.7 % Predi abetic 5.7 - 6.4 % Diabetic >or= 6.5 % Please note range changes. Hemoglobin measurementOrdere d By: Arnulfo Perrin on 11-23-2024 Hemoglobin (Bld) [Mass/Vol] 11.8 g/dL Low 12.0-15.0 [facility] Immature granulocytes/100 WB C Auto (Bld)Ordered By: Arnulfo Perrin on 11-23-2024 Immature granulocytes/100 WBC (Bld) 0.800 % 0.0-0.9 [facility] Comment on above: IG% - Immature Granu locytes (promyelocytes, myelocytes and metamyelocytes) > 1% indicates that a LEFT SHIFT is Present. International normalized rat io (INR) calculationOrdered By: Arnulfo Perrin on 11-23-2024 INR Coag (Bld) [Relative time] 1.1 {INR} [facility] L501.4021on 11-23-2024 Trop T High Sen 10 ng/L Normal <=14 [facility] Comment on above: Performed By: #### L 300.3900, L500.2500, L501.4021, L300.4310, L100.0100 #### [facility] Laboratory [address] [place], [address] MCV (mean corpuscular volume ) determinationOrdered By: Arnulfo Perrin on 11-23-2024 MCV (RBC) [Entitic vol] 91.1 fL 81-99 [facility] Mean corpuscular hemoglobin (MCH) determinationOrdered By: Arnulfo Perrin on 11-23-2024 MCH (RBC) [Entitic mass] 31.1 pg 27.0-32.0 [facility] Mean corpuscular hemoglobin concentration (MCHC) determinationOrdered By: Arnulfo Perrin on 11-23-2024 MCHC (RBC) [Mass/Vol] 34.1 g/dL 32-36 [facility] Mean platelet volume determi nationOrdered By: Arnulfo Perrin on 11-23-2024 Platelet mean volume (Bld) [Entitic vol] 9.1 fL 6.2-12.0 [facility] Monocyte percentageOrdered B y: Arnulfo Perrin on 11-23-2024 Monocytes/100 WBC (Bld) 11.0 % High 0-10 [facility] Neutrophil percentageOrdered By: Arnulfo Perrin on 11-23-2024 Neutrophils/100 WBC (Bld) 57.1 % 47-70 [facility] Nucleated red blood cell per centageOrdered By: Arnulfo Perrin on 11-23-2024 Nucleated RBC/100 WBC (Bld) [Ratio] 0 % 0-5 [facility] Partial Thromboplast Timeon 11-23-2024 aPTT Coag (Bld) [Time] 29.0 s Normal 24.1-36.2 [facility] Comment on above: Performed By: #### L 300.3900, L500.2500, L501.4021, L300.4310, L100.0100 #### [facility] Laboratory [address] [place], [address] Platelet countOrdered By: Haim Perrin on 11-23-2024 Platelets (Bld) [#/Vol] 179 10*3/uL 150-450 [facility] Potassium measurement (mass/ volume)Ordered By: Arnulfo Perrin on 07-31-2025 Potassium (Unsp spec) [Mass/Vol] 4.2 mmol/L 3.3-5.1 [facility] Prothrombin Time w/INRon INR Coag (PPP) [Relative time] 1.1 {INR} Normal [facility] Comment on above: Performed By: #### L 300.3900, L500.2500, L501.4021, L300.4310, L100.0100 #### [facility] Laboratory [address] [place], [address] PT Coag (PPP) [Time] 14.0 s Normal 11.7-14.9 [facility] Comment on above: Performed By: #### L 300.3900, L500.2500, L501.4021, L300.4310, L100.0100 #### [facility] [address] [place], [address] Prothrombin timeOrdered By: Arnulfo Perrin on 11-23-2024 PT Coag (PPP) [Time] 14.0 s 11.7-14.9 [facility] RBC Auto (Bld) [#/Vol]Ordere d By: Arnulfo Perrin on 11-23-2024 RBC (Bld) [#/Vol] 3.80 10*6/uL Low 4.2-5.4 [facility] STROKE Brain/Head without Co nton 11-23-2024 STROKE Brain/Head without Cont [facility] Imaging Services [address] [place] [address] STROKE Brain/Head without Cont MR#: [id number] Acct: [id number] Name: LILLIANA HUBER Rep #: [id number] : 1945 F 79 From: Matthias hills MD PCP: Dr. Elis Cardenas, DO Status: [facility] ER Study: STROKE Brain/Head without Cont Date of Exam: 0 11/23/24 Exam# [id number] Ordering Dr: Arnulfo Perrin MD PROCEDURE: STROKE BRAIN/HEAD WITHOUT CONT 11/23/2024 REASON FOR EXAM: NEURO DEFICIT, ACUTE, STROKE SUSPECTED TECHNIQUE: STROKE BRAIN/HEAD WITHOUT CONT Coronal and Sagittal reconstruction series were provided. One or more dose reduction techniques were used (e.g., Automated exposure control, adjustment of the mA and/or kV according to patient size, use of iterative reconstruction technique. RADIATION DOSE SUMMARY: CTDlvol: 44.99 mGy DLP: 863.6 mGycm COMPARISON: Prior study dated March 15, 2024. FINDINGS: Brain: Low density in the periventricular white matter suggests mild chronic small vessel ischemic changes. 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 CSF Spaces: Mild generalized cerebral atrophy Sinuses/Mastoids: Clear at visualized levels Bones: Unremarkable Atherosclerotic calcification of the cavernous portions of the internal carotid arteries bilaterally. CT/STROKE Brain/Head without Cont IMPRESSION: No acute abnormality is seen. Red Alert: Chronic changes The critical information above was relayed directly by me by telephone to Arnulfo Perrin on 11/23/2024 at 3:48 pm with readback verification. Reading Location: [id number] CC: Dr. Arnulfo Perrin MD; Dr. Elis Cardenas DO Enamel Dipper: Signed Normal [facility] STROKE CTA Head AND Neck W/C onon 11-23-2024 STROKE CTA Head AND Neck W/Con [facility] Imaging Services [address] [place] [address] STROKE CTA Head AND Neck W/Con MR#: [id number] Acct: [id number] Name: LILLIANA HUBER Rep #: [id number] : 1945 F 79 From: Jann Almanzar MD PCP: Dr. Elis Cardenas DO Status: REG ER Study: STROKE CTA Head AND Neck W/Con Date of Exam: 0 11/23/24 Exam# [id number] Ordering Dr: Arnulfo Perrin MD PROCEDURE: STROKE CTA HEAD AND NECK W/CON 11/23/2024 REASON FOR EXAM: NEURO DEFICIT, ACUTE, STROKE SUSPECTED TECHNIQUE: STROKE CTA HEAD AND NECK W/CON Multiplanar Sagittal and Coronal images were obtained. 3D post processing was performed. CONTRAST: Isovue 370 VOLUME: 100 mL One or more dose reduction techniques were used (e.g., Automated exposure control, adjustment of the mA and/or kV according to patient size, use of iterative reconstruction technique). RADIATION DOSE SUMMARY: DLP: 789.21 mGycm COMPARISON: CTA head/neck exams dated 10/21/2022, 05/02/2024. FINDINGS: CTA HEAD: Patent intracranial arterial vasculature. No large vessel occlusion, high-grade flow-limiting stenosis, saccular aneurysm, or vascular malformation identified. origin of the right DIRECTOR OF ASSESSING with diminutive/hypoplast ic connection to the basilar artery, a normal anatomic variant. Unchanged mild short-segment narrowings along the left PHYLICIA proximal A2 and more distal A3 segment/pericallosal artery. Focal calcified atherosclerotic plaque along the right MCA mid M1 segment with no significant stenosis. CTA NECK: Left vertebral artery originates directly from the aortic arch. Bilateral cervical carotid and vertebral arteries are patent. No aneurysm or dissection. Dominant right vertebral artery with diffusely hypoplastic left vertebral artery. Moderate-advanced stenosis at the distal left vertebral artery V4 segment, unchanged. Atherosclerotic plaque along the dominant right vertebral artery distal V4 segment without significant luminal narrowing. Mild-moderate short-segment stenosis of the proximal basilar artery, unchanged. Mild atheromatous plaque at the bilateral carotid artery bifurcations and along the carotid siphons without any significant luminal narrowing of the ICAs on either side. CT/STROKE CTA Head AND Neck W/Con IMPRESSION: 1. No acute intracranial or cervical large vessel arterial occlusion or high-grade stenosis, no significant change from prior exam. 2. Dominant right vertebral artery with diffusely hypoplastic left vertebral artery, with moderate- advanced stenosis of the distal left V4 segment. Widely patent right vertebral artery. 3. Mild-moderate focal narrowing of the proximal basilar artery. No significant ICA stenosis. 4. Mild short-segment narrowings along the left PHYLICIA A2-A3 segments. Reading Location: [id number] CC: Dr. Arnulfo Perrin MD; Dr. Elis Cardenas DO Enamel Dipper: Signed [facility] Serum creatinine measurement (mass/volume)Ordered By: Arnulfo Perrin on 11-23-2024 Creatinine [Mass/Vol] 0.75 mg/dL 0.70-1.20 [facility] Serum glucose measurement (m ass/volume)Ordered By: Arnulfo Perrin on 11-23-2024 Glucose [Mass/Vol] 95 mg/dL 70-99 [facility] Serum or plasma calcium idris urement (mass/volume)Ordered By: Arnulfo Perrin on 11-23-2024 Calcium [Mass/Vol] 8.3 mg/dL 7.6-11.0 [facility] Serum or plasma urea nitroge n measurement (mass/volume)Ordered By: Arnulfo Perrin on 11-23-2024 Urea nitrogen [Mass/Vol] 17 mg/dL 4-19 [facility] Sodium levelOrdered By: Arnulfo Perrin on 11-23-2024 Sodium [Moles/Vol] 136 mmol/L 133-145 [facility] T4 Free Directon 11-23-2024 T4 FREE DIRECT 1.50 ng/dL High 0.76-1.46 [facility] Comment on above: Performed By: #### L 499.0042 #### [facility] [address] [place], [place], [id number] T4 freeOrdered By: aTd Trimble on 11-23-2024 Free T4 [Mass/Vol] 1.50 ng/dL High 0.76-1.46 [facility] TSH DL <= 0.005 mIU/L QnOrde red By: Tad Trimble on 11-23-2024 TSH Qn 8.080 uIU/mL High 0.300-4.200 [facility] Thyroid Stim Hormone (TSH)on 11-23-2024 TSH 8.080 uIU/mL High 0.300-4.200 [facility] Comment on above: Performed By: #### L 499.0042 #### [facility] [address] [place], [address] Troponin T HS 2 HRon 025 Trop T High Sen 8 ng/L Normal <=14 [facility] Comment on above: Performed By: #### L 300.3900, L500.2500, L501.4021, L300.4310, L100.0100 #### [facility] [address] [place], [address] Trop T High Sen Normal <=14 [facility] Comment on above: Order Comment: ER DI DNT DRAW AT DUE TIME. PT IS NOW ON FLOOR. WILL DRAW TURNER Result Comment: Canc elled via OM: Duplicate Order Performed By: #### L 499.0042 #### [facility] [address] [place], [address] Troponin T HS 4 HRon 025 Trop T High Sen 7 ng/L Normal <=14 [facility] Comment on above: Performed By: #### L 499.0042 #### [facility] [address] [place], [address] Trop T High Sen Normal <=14 [facility] Comment on above: Result Comment: Pal elled via OM: Duplicate Order Performed By: #### L 499.0042 #### [facility] [address] [place], [address] Troponin T.cardiac [Mass/vol ume] in Serum or Plasma by High sensitivity methodOrdered By: Arnulfo Perrin on 11-23-2024 Troponin T.cardiac High sensitivity method [Mass/Vol] 7 ng/L <14 [facility] Troponin T.cardiac High sensitivity method [Mass/Vol] 8 ng/L <14 [facility] Troponin T.cardiac High sensitivity method [Mass/Vol] 10 ng/L <14 [facility] White blood cell (WBC) count Ordered By: Arnulfo Perrin on 11-23-2024 WBC (Bld) [#/Vol] 5.0 10*3/uL 4.4-11.0 [facility] L3410.9992on 11-15-2024 [facility]. COMMENT Normal . [facility] Comment on above: Order Comment: [id number] ALK PHOS ISOENZYME Result Comment: Test Ordered: [id number] Alkaline Phosphatase Alkaline Phosphatase 109 IU/L Reference Range: 44-121 Performed at: - [facility] [address], [place] [id number] Patient Admitting Clerk: Yunier Newton PhD, Phone: [phone] Performed By: #### L 3300.6820, L3410.9992, L501.9520 #### [facility] [address] [facility] [place], [address] Thyroglobulin w/Anti-TG ABon 11-15-2024 Anti-TG AB < 1.0 Normal 0.0-0.9 [facility] Comment on above: Result Comment: Thyr oglobulin Antibody measured by [employer] Methodology It should be noted that the presence of thyroglobulin antibodies may not be pathogenic nor diagnostic, especially at very low levels. The assay tablet technician has found that four percent of individuals without evidence of thyroid disease or autoimmunity will have positive TgAb levels up to 4 IU/mL. Performed By: #### L 3300.6820, L3410.9992, L544.9520 #### [facility] [address] [facility] [place], [address] THYROGLOB QUANT < 0.1 Low 1.5-38.5 [facility] Comment on above: Result Comment: Acco rding to the National Academy of Clinical Biochemistry, the reference interval for Thyroglobulin (TG) should be related to euthyroid patients and not for patients who underwent thyroidectomy. TG reference intervals for these patients depend on the residual mass of the thyroid tissue left after surgery. Establishing a post-operative baseline is recommended. The assay limit of quantitation is 0.1 ng/mL Thyroglobulin measured by [employer] [place] Immunometric Assay Performed at: - [facility] [address] [place], [place] [id number] Patient Admitting Clerk: Yunier Newton PhD, Phone: [phone] Performed By: #### L 3300.6820, L3410.9992, L501.9520 #### [facility] [address] [place], [address] TSH DL <= 0.005 mIU/L QnOrde red By: Lucian Munoz on 11-13-2024 TSH Qn 12.200 uIU/mL High 0.300-4.200 [facility] Thyroid Stim Hormone (TSH)on 11-13-2024 TSH 12.200 uIU/mL High 0.300-4.200 [facility] Comment on above: Performed By: #### L 3300.6820, L3410.9992, L501.9520 #### [facility] [address] [place], [place], [id number] Thyroglobulin w/Anti-TG ABon 11-08-2024 Anti-TG AB < 1.0 Normal 0.0-0.9 [facility] Comment on above: Result Comment: Thyr oglobulin Antibody measured by [employer] [place] Methodology It should be noted that the presence of thyroglobulin antibodies may not be pathogenic nor diagnostic, especially at very low levels. The assay tablet technician has found that four percent of individuals without evidence of thyroid disease or autoimmunity will have positive TgAb levels up to 4 IU/mL. Performed By: #### L 300.3900, L500.2500, L501.4021, L300.4310, L100.0100 #### [facility] [address] [place], [place], [address] THYROGLOB QUANT < 0.1 Low 1.5-38.5 [facility] Comment on above: Result Comment: Acco rding to the National Academy of Clinical Biochemistry, the reference interval for Thyroglobulin (TG) should be related to euthyroid patients and not for patients who underwent thyroidectomy. TG reference intervals for these patients depend on the residual mass of the thyroid tissue left after surgery. Establishing a post-operative baseline is recommended. The assay limit of quantitation is 0.1 ng/mL Thyroglobulin measured by [employer] Immunometric Assay Performed at: [address] [id number] Patient Admitting Clerk: Yunier Newton PhD, Phone: [phone] Performed By: #### L 300.3900, L500.2500, L501.4021, L300.4310, L100.0100 #### [facility] [address] [place], [place], [address] Anion gap in Serum or Plasma Ordered By: EASTON SPENCER on 11-07-2024 Anion gap [Moles/Vol] 12 mmol/L -15 [facility] BUN/creatinine ratioOrdered By: EASTON SPENCER on 11-07-2024 Urea nitrogen/Creatinine [Mass ratio] 19.0 mg/mg 10- [facility] Bilirubin, totalOrdered By: EASTON SPENCER on 11-07-2024 Bilirubin [Mass/Vol] 0.69 mg/dL 0.00-1.30 [facility] Carbon dioxide, total [Moles /volume] in Central venous bloodOrdered By: EASTON SPENCER on 11-07-2024 CO2 [Moles/Vol] 22.7 mmol/L 21.0-32.0 [facility] Chloride assayOrdered By: ME MANUELA SPENCER on 11-07-2024 Chloride [Moles/Vol] 104 mmol/L 98-108 [facility] Comprehensive Metabolic Prof ilon 11-07-2024 Albumin [Mass/Vol] 4.1 g/dL Normal 3.4-4.8 [facility] Comment on above: Performed By: #### L 300.3900, L500.2500, L501.4021, L300.4310, L100.0100 #### [facility] [address] [place], [address] Albumin/Globulin [Mass ratio] 1.6 {ratio} Normal 0.9-2.4 [facility] Comment on above: Performed By: #### L 300.3900, L500.2500, L501.4021, L300.4310, L100.0100 #### [facility] [address] [place], [address] ALK PHOS 114 U/L High 35-104 [facility] Comment on above: Performed By: #### L 300.3900, L500.2500, L501.4021, L300.4310, L100.0100 #### [facility] [address] [place], [address] ALT [Catalytic activity/Vol] 17 U/L Normal <=34 [facility] Comment on above: Performed By: #### L 300.3900, L500.2500, L501.4021, L300.4310, L100.0100 #### [facility] [address] [place], [address] AST [Catalytic activity/Vol] 20 U/L Normal <=31 [facility] Comment on above: Performed By: #### L 300.3900, L500.2500, L501.4021, L300.4310, L100.0100 #### [facility] [address] [place], [address] Bilirubin [Mass/Vol] 0.69 mg/dL Normal 0.00-1.30 [facility] Comment on above: Performed By: #### L 300.3900, L500.2500, L501.4021, L300.4310, L100.0100 #### [facility] [address] [place], [address] BUN/CRE 19.0 RATIO Normal 10-20 [facility] Comment on above: Performed By: #### L 300.3900, L500.2500, L501.4021, L300.4310, L100.0100 #### [facility] [address] [place], [address] Calcium [Mass/Vol] 9.1 mg/dL Normal 7.6-11.0 [facility] Comment on above: Performed By: #### L 300.3900, L500.2500, L501.4021, L300.4310, L100.0100 #### [facility] [address] [place], [address] Chloride [Moles/Vol] 104 mmol/L Normal 98-108 [facility] Comment on above: Performed By: #### L 300.3900, L500.2500, L501.4021, L300.4310, L100.0100 #### [facility] [address] [place], [address] CO2 [Moles/Vol] 22.7 mmol/L Normal 21.0-32.0 [facility] Comment on above: Performed By: #### L 300.3900, L500.2500, L501.4021, L300.4310, L100.0100 #### [facility] [address] [place], [address] Creatinine [Mass/Vol] 0.90 mg/dL Normal 0.70-1.20 [facility] Comment on above: Performed By: #### L 300.3900, L500.2500, L501.4021, L300.4310, L100.0100 #### [facility] [address] [place], [address] GAP 12 Normal 5-15 [facility] Comment on above: Performed By: #### L 300.3900, L500.2500, L501.4021, L300.4310, L100.0100 #### [facility] [address] [place], [address] GFR/1.73 sq M.predicted among non-blacks MDRD (S/P/Bld) [Vol rate/Area] 64 mL/min/{1.73_m2} Normal >60 [facility] Comment on above: Result Comment: mL/m in/1.73m2 CKD-EPI Creatinine Equation (2020) Performed By: #### L 300.3900, L500.2500, L501.4021, L300.4310, L100.0100 #### [facility] [address] [place], [address] Globulin (S) [Mass/Vol] 2.5 g/dL Normal 2.2-4.2 [facility] Comment on above: Performed By: #### L 300.3900, L500.2500, L501.4021, L300.4310, L100.0100 #### [facility] [address] [place], [address] Glucose [Mass/Vol] 98 mg/dL Normal 70-99 [facility] Comment on above: Performed By: #### L 300.3900, L500.2500, L501.4021, L300.4310, L100.0100 #### [facility] [address] [place], [address] Potassium [Moles/Vol] 4.2 mmol/L Normal 3.3-5.1 [facility] Comment on above: Performed By: #### L 300.3900, L500.2500, L501.4021, L300.4310, L100.0100 #### [facility] [address] [place], [address] Sodium [Moles/Vol] 139 mmol/L Normal 133-145 [facility] Comment on above: Performed By: #### L 300.3900, L500.2500, L501.4021, L300.4310, L100.0100 #### [facility] [address] [place], [address] T PROT 6.7 g/dL Normal 5.9-8.4 [facility] Comment on above: Performed By: #### L 300.3900, L500.2500, L501.4021, L300.4310, L100.0100 #### [facility] [address] [place], [address] Urea nitrogen [Mass/Vol] 17 mg/dL Normal 4-19 [facility] Comment on above: Performed By: #### L 300.3900, L500.2500, L501.4021, L300.4310, L100.0100 #### [facility] [address] [place], [address] Glomerular filtration rate ( GFR) estimation/1.73 sq m using serum, plasma, or whole bOrdered By: EASTON SPENCER on 11-07-2024 GFR/1.73 sq M.predicted among non-blacks MDRD (S/P/Bld) [Vol rate/Area] 64 mL/min/{1.73_m2} >60 [facility] Comment on above: mL/min/1.73m2 CKD-EP I Creatinine Equation (2020) Laboratory - Chemistry and C hemistry - challengeOrdered By: EASTON SPENCER on 11-07-2024 AST [Catalytic activity/Vol] 20 U/L <32 [facility] Potassium measurement (mass/ volume)Ordered By: EASTON SPENCER on 11-07-2024 Potassium (Unsp spec) [Mass/Vol] 4.2 mmol/L 3.3-5.1 [facility] Serum creatinine measurement (mass/volume)Ordered By: EASTON SPENCER on 11-07-2024 Creatinine [Mass/Vol] 0.90 mg/dL 0.70-1.20 [facility] Serum globulin measurementOr dered By: EASTON SPECNER on 11-07-2024 Globulin (S) [Mass/Vol] 2.5 g/dL 2.2-4.2 [facility] Serum glucose measurement (m ass/volume)Ordered By: EASTON SPENCER on 11-07-2024 Glucose [Mass/Vol] 98 mg/dL 70-99 [facility] Serum or plasma alanine boyd otransferase (ALT) measurementOrdered By: EASTON SPENCER on 11-07-2024 ALT [Catalytic activity/Vol] 17 U/L <35 [facility] Serum or plasma albumin idris urement (mass/volume)Ordered By: EASTON SPENCER on 11-07-2024 Albumin [Mass/Vol] 4.1 g/dL 3.4-4.8 [facility] Serum or plasma albumin/glob ulin mass ratioOrdered By: EASTON SPENCER on 11-07-2024 Albumin/Globulin [Mass ratio] 1.6 {ratio} 0.9-2.4 [facility] Serum or plasma alkaline lin sphatase measurementOrdered By: EASTON SPENCER on 11-07-2024 ALP [Catalytic activity/Vol] 114 U/L High 35-104 [facility] Serum or plasma calcium idris urement (mass/volume)Ordered By: EASTON SPENCER on 11-07-2024 Calcium [Mass/Vol] 9.1 mg/dL 7.6-11.0 [facility] Serum or plasma urea nitroge n measurement (mass/volume)Ordered By: EASTON SPENCER on 11-07-2024 Urea nitrogen [Mass/Vol] 17 mg/dL 4-19 [facility] Sodium levelOrdered By: JENNY DENNY TJ on 11-07-2024 Sodium [Moles/Vol] 139 mmol/L 133-145 [facility] TSH DL <= 0.005 mIU/L QnOrde red By: EASTON TJ on 11-07-2024 TSH Qn 10.300 uIU/mL High 0.300-4.200 [facility] Thyroid Stim Hormone (TSH)on 11-07-2024 TSH 10.300 uIU/mL High 0.300-4.200 [facility] Comment on above: Performed By: #### L 300.3900, L500.2500, L501.4021, L300.4310, L100.0100 #### [facility] [address] [place], [address] Total proteinOrdered By: CINDY SPENCER on 11-07-2024 Protein [Mass/Vol] 6.7 g/dL 5.9-8.4 [facility] Gastroenterology Visit Repor ton 10-18-2024 Gastroenterology Visit Report [facility] [address] [place] [address] OFFICE VISIT Date of Service: 10/18/24 MR#: [id number] Acct: [id number] Name: LILLIANA HUBER Rep #: [id number] : 1945 Provider: DORINDA mai Age/Sex: 79/F Location: [facility] Status: Signed Intake Vital Signs 09/27/24 09:02 10/18/24 13:17 Height 5 ft 2 in 5 ft 2 in Weight: 168 lb 178 lb BMI 30.7 32.5 BP 114/69 120/72 Respiration 16 18 Pulse 60 83 Temp 98.3 F Temp Source Temporal Pulse Oximetry (%) 94 96 Oxygen Delivery Method room air room air Comment Patient verbally reports weight PT self reported wt. Refuses to let us weight her. Intake Visit Reasons: 3 WK fu Chief Complaint: constipaiton Contract Driver Required: No Accompanied by: Self Is patient in pain?: No Allergies Sulfa (Sulfonamide Antibiotics) Allergy (Intermediate, Verified 10/18/24 13:10) Rash pepper (genus Capsicum) Allergy (Verified 10/18/24 13:10) Swelling adhesive tape Adverse Reaction (Intermediate, Verified 10/18/24 13:10) Rash Penicillins Adverse Reaction (Unknown, Verified 10/18/24 13:10) Rash Medications ???Medication ???Instructions ???Recorded ???Confirmed ???Type ascorbic acid (vitamin C) 500 mg 500 mg PO DAILY 05/21/22 10/18/24 History tablet (Vitamin C) cholecalciferol (vitamin D3) 125 125 mcg PO DAILY 05/21/22 10/18/24 History mcg (5,000 unit) tablet (Vitamin D3) aspirin 81 mg tablet,delayed 81 mg PO DAILY@0800 #90 tabs 03/1310/18/24 Rx release Handicap Placard #1 ea 04/23/23 10/18/24 Rx levothyroxine 137 mcg tablet 137 mcg PO DAILY 04/23/23 10/18/24 History lisinopril 20 mg tablet 20 mg PO DAILY #90 tabs 10/11/23 0 10/18/24 Rx atorvastatin 40 mg tablet 40 mg PO QDAY #90 tabs 04/25/24 Rx atenolol 25 mg tablet 25 mg PO DAILY #90 tabs 08/07/24 0 10/18/24 Rx amlodipine 10 mg tablet 10 mg PO QDAY #90 tabs 08/24/24 Rx clopidogrel 75 mg tablet 75 mg PO QDAY 08/24/24 10/18/24 Hi story lysine 1,000 mg tablet 500 mg PO DAILY 09/26/24 10/18/24 History zinc lozenges 15 mg 50 mg PO DAILY 09/26/24 10/18/24 H istory bisacodyl 5 mg tablet,delayed 5 mg PO ONCE PRN 09/27/24 10/18/24 History release (Gentle Laxative (bisacodyl)) Have you fallen in the past year?: No PFSH Medical History Coronary artery disease Hypertension Dyslipidemia Mild cognitive impairment Ischemic cardiomyopathy Arteriosclerotic cardiovascular disease Hearing loss, left Chest pain Stroke/cerebrovascul ar accident Compression neuropathy of genitofemoral nerve Stress incontinence Wears hearing aid Wears glasses Post-menopausal Depression Thyroid disease Arthritis High cholesterol Non-smoker Leg cramps History of stress test History of echocardiogram Uterovaginal prolapse, incomplete TIA (transient ischemic attack) History of stroke Cancer GERD (gastroesophageal reflux disease) Menieres disease Corrales's palsy Aphthous ulcer of mouth Hypothyroidism Hyperlipidemia Benign essential hypertension Surgical History Stented coronary artery (05/12/23) Status post hysterectomy with oophorectomy Hx of surgical procedure H/O tubal ligation H/O dilation and curettage H/O breast biopsy Hx of colonoscopy History of thyroidectomy H/O hernia repair Family History Mother Heart disease Social History Smoking Status: Never smoker alcohol intake: never substance use type: does not use caffeine: Yes Type: coffee Number of servings: 1 seatbelt use: always do you feel safe at home: Yes additional social history: - [place] HPI HPI Chief Complaint: constipaiton Details: LILLIANA HUBER, is a 79 F who presents to the office today for OV 09/27/2024 78y/o female presents for initial consultation with complaints of chronic constipation. She reports a colonoscopy was unremarkable 5-6 years ago and denies any family h/o colon CA. She denies any weight loss or bleeding. She will complete a KUB today. I have recommended a high fiber diet, linzess 290mcg once daily and follow-up in 3 weeks. Note: realSociable speech recognition baby sitter software was used to create portions of this document. Sound-alike and misspelled words, as well as other baby sitter errors may be contained in the documentation. Patient Instructions: KUB today High fiber diet Linzess 290mcg once daily, samples provided Follow-up in 3 weeks KUB 09/27/2024 - reports she tried Linzess but this caused diarrhea and she discontinued - she reports she is taking a laxative QOD (more content not included)... Normal [facility] Abdomen Single Viewon 2024 Abdomen Single View [facility] Imaging Services [address] [place] [address] Abdomen Single View MR#: [id number] Acct: [id number] Name: LILLIANA HUBER Rep #: [id number] : 1945 F 78 From: Sharif Reynoso MD PCP: Dr. Elis Cardenas DO Status: REG CLI Study: Abdomen Single View Date of Exam: 09/27/24 Exam# [id number] Ordering Dr: Afua Banuelos PROCEDURE: ABDOMEN SINGLE VIEW 09/27/2024 REASON FOR EXAM: CONSTIPATION TECHNIQUE: Single view abdomen. COMPARISON: None. FINDINGS: The bowel gas pattern is nonobstructive. There are no abnormal soft tissue calcifications or radiopaque foreign bodies. There are no significant bony abnormalities. RAD/Abdomen Single View IMPRESSION: No evidence of acute abdominal pathology. Reading Location: [id number] CC: DORINDA Banuelos; Dr. Elis Cardenas DO Enamel Dipper: Signed Normal [facility] Gastroenterology Visit Repor ton 09-27-2024 Gastroenterology Visit Report [facility] [address] [place] [address] OFFICE VISIT Date of Service: 09/27/24 MR#: [id number] Acct: [id number] Name: LILLIANA HUBER Rep #: [id number] : 1945 Provider: DORINDA mai Age/Sex: 78/F Location: [facility] Status: Signed Intake Vital Signs 08/24/24 08:16 09/27/24 09:02 Height 5 ft 2 in 5 ft 2 in Weight: 168 lb 168 lb BMI 30.7 30.7 BP 138/79 H 114/69 Blood Pressure Location Lt brachial Position Sitting Respiration 18 16 Pulse 60 60 Pulse Source NIBP Pulse Oximetry (%) 94 Oxygen Delivery Method room air Comment Patient verbally reports weight Intake Visit Reasons: Pre Colon Chief Complaint: I have been haivng bowel problems Contract Driver Required: No Accompanied by: Self Is patient in pain?: No Allergies Sulfa (Sulfonamide Antibiotics) Allergy (Intermediate, Verified 09/27/24 08:59) Rash pepper (genus Capsicum) Allergy (Verified 09/27/24 08:59) Swelling adhesive tape Adverse Reaction (Intermediate, Verified 09/27/24 08:59) Rash Penicillins Adverse Reaction (Unknown, Verified 09/27/24 08:59) Rash Medications ???Medication ???Instructions ???Recorded ???Confirmed ???Type ascorbic acid (vitamin C) 500 mg 500 mg PO DAILY 05/21/22 09/27/24 History tablet (Vitamin C) cholecalciferol (vitamin D3) 125 125 mcg PO DAILY 05/21/22 09/27/24 History mcg (5,000 unit) tablet (Vitamin D3) aspirin 81 mg tablet,delayed 81 mg PO DAILY@0800 #90 tabs 03/1309/27/24 Rx release Handicap Placard #1 ea 04/23/23 09/27/24 Rx levothyroxine 137 mcg tablet 137 mcg PO DAILY 04/23/23 09/27/24 History lisinopril 20 mg tablet 20 mg PO DAILY #90 tabs 10/11/23 0 09/27/24 Rx atorvastatin 40 mg tablet 40 mg PO QDAY #90 tabs 04/25/24 Rx atenolol 25 mg tablet 25 mg PO DAILY #90 tabs 08/07/24 0 09/27/24 Rx amlodipine 10 mg tablet 10 mg PO QDAY #90 tabs 08/24/24 Rx clopidogrel 75 mg tablet 75 mg PO QDAY 08/24/24 09/27/24 Hi story lysine 1,000 mg tablet 500 mg PO DAILY 09/26/24 09/26/24 History zinc lozenges 15 mg 50 mg PO DAILY 09/26/24 09/26/24 H istory bisacodyl 5 mg tablet,delayed 5 mg PO ONCE PRN 09/27/24 09/27/24 History release (Gentle Laxative (bisacodyl)) linaclotide 290 mcg capsule 290 mcg PO QAM #90 caps 09/27/24 0 09/27/24 Rx (Linzess) Have you fallen in the past year?: No Nurse's Note: Has difficulty going, she takes a prn laxative every other day and then it's loose. [facility] Medical History Coronary artery disease Hypertension Dyslipidemia Mild cognitive impairment Ischemic cardiomyopathy Arteriosclerotic cardiovascular disease Hearing loss, left Chest pain Stroke/cerebrovascul ar accident Compression neuropathy of genitofemoral nerve Stress incontinence Wears hearing aid Wears glasses Post-menopausal Depression Thyroid disease Arthritis High cholesterol Non-smoker Leg cramps History of stress test History of echocardiogram Uterovaginal prolapse, incomplete TIA (transient ischemic attack) History of stroke Cancer GERD (gastroesophageal reflux disease) Menieres disease Corrales's palsy Aphthous ulcer of mouth Hypothyroidism Hyperlipidemia Benign essential hypertension Surgical History Stented coronary artery (05/12/23) Status post hysterectomy with oophorectomy Hx of surgical procedure H/O tubal ligation H/O dilation and curettage H/O breast biopsy Hx of colonoscopy History of thyroidectomy H/O hernia repair Family History Mother Heart disease Social History Smoking Status: Never smoker alcohol intake: never substance use type: does not use caffeine: Yes Type: coffee Number of servings: 1 seatbelt use: always do you feel safe at home: Yes additional social history: - [place] HPI HPI Chief Complaint: I have been haivng bowel problems Details: LILLIANA HUBER, is a 78 F who presents to the office today for - will not have a BM unless she takes a laxative - Has difficulty having a BM takes a PRN laxative QOD and then has loose stools - bowels changed 6 weeks ago, used to have formed stools most days - Exlax 1 tablet - denies any dietary or medication changes - denies any abdominal pain - reports stools when she has them are loose or diarrhea - denies any bleeding - reports her activity has decreased over the past couple years since [place] B: oatmeal L: sloppy brennan, potatoes, watermelon, rolls D: protein, vegetable - reports her water intake is good - Colonoscopy - per patient was 5-6 years ago, (more content not included)... Normal [facility] Cardiology Visit Reporton Cardiology Visit Report [facility] [address] [place] [address] OFFICE VISIT Date of Service: 08/24/24 MR#: [id number] Acct: [id number] Name: LILLIANA HUBER Rep #: [id number] : 1945 Provider: Dr. Bella Irving MD Age/Sex: 78/F Location: [facility] [place] Status: Signed HPI HPI History of Present Illness Details: This lady with history of coronary artery disease status post percutaneous intervention to the left circumflex is here for follow-up visit. Denies any complaints today. Intake Vital Signs 03/13/24 08:34 08/24/24 08:16 Height 5 ft 2 in 5 ft 2 in Weight: 168 lb BMI 30.7 BP 138/79 H Blood Pressure Location Lt brachial Position Sitting Respiration 18 Pulse 60 Pulse Source NIBP Intake Visit Reasons: 6 M FU Contract Driver Required: No Accompanied by: Self Is patient in pain?: No Allergies Sulfa (Sulfonamide Antibiotics) Allergy (Intermediate, Verified 08/24/24 13:52) Rash pepper (genus Capsicum) Allergy (Verified 08/24/24 13:52) Swelling adhesive tape Adverse Reaction (Intermediate, Verified 08/24/24 13:52) Rash Penicillins Adverse Reaction (Unknown, Verified 08/24/24 13:52) Rash Medications ???Medication ???Instructions ???Recorded ???Confirmed ???Type B-complex with vitamin C 1 tab PO DAILY 05/21/22 08/24/24 H istory ascorbic acid (vitamin C) 500 mg 500 mg PO DAILY 05/21/22 08/24/24 History tablet (Vitamin C) calcium ER 600 mg (as carb,cit)-D3 2 tab PO DAILY 05/21/22 08/24/24 History 12.5 mcg (500 unit) tablet, ext.rel (Citracal-D3 Slow Release) cholecalciferol (vitamin D3) 125 125 mcg PO DAILY 05/21/22 08/24/24 History mcg (5,000 unit) tablet (Vitamin D3) garlic 1,000 mg capsule 1,000 mg PO DAILY 05/21/22 5 History lysine 1,000 mg tablet 1,000 mg PO DAILY 05/21/22 5 History turmeric root extract 500 mg 500 mg PO DAILY 05/21/22 08/24/24 History capsule zinc lozenges 15 mg 15 mg PO DAILY 05/21/22 08/24/24 H istory aspirin 81 mg tablet,delayed 81 mg PO DAILY@0800 #90 tabs 03/1308/24/24 Rx release Handicap Placard #1 ea 04/23/23 05/16/24 Rx levothyroxine 137 mcg tablet 137 mcg PO DAILY 04/23/23 08/24/24 History clopidogrel 75 mg tablet 75 mg PO DAILY #90 tabs 10/11/23 0 08/24/24 Rx lisinopril 20 mg tablet 20 mg PO DAILY #90 tabs 10/11/23 0 08/24/24 Rx atorvastatin 40 mg tablet 40 mg PO QDAY #90 tabs 04/25/24 Rx atenolol 25 mg tablet 25 mg PO DAILY #90 tabs 08/07/24 0 08/24/24 Rx amlodipine 5 mg tablet 5 mg PO DAILY #90 tabs 08/23/24 Rx clopidogrel 75 mg tablet 75 mg PO QDAY 08/24/24 08/24/24 [facility] Ejection fraction %: 65 Have you fallen in the past year?: No PFSH Medical History Aphthous ulcer of mouth Arteriosclerotic cardiovascular disease Arthritis Corrales's palsy Benign essential hypertension Cancer Chest pain Compression neuropathy of genitofemoral nerve Coronary artery disease Depression Dyslipidemia GERD (gastroesophageal reflux disease) Hearing loss, left High cholesterol History of echocardiogram History of stress test History of stroke Hyperlipidemia Hypertension Hypothyroidism Ischemic cardiomyopathy Leg cramps Menieres disease Mild cognitive impairment Non-smoker Post-menopausal Stress incontinence Stroke/cerebrovascul ar accident Thyroid disease TIA (transient ischemic attack) Uterovaginal prolapse, incomplete Wears glasses Wears hearing aid Surgical History H/O breast biopsy H/O dilation and curettage H/O hernia repair H/O tubal ligation History of thyroidectomy Hx of colonoscopy Hx of surgical procedure Status post hysterectomy with oophorectomy Stented coronary artery (05/12/23) Family History Mother Heart disease Social History Smoking Status: Never smoker alcohol intake: never substance use type: does not use caffeine: Yes Type: coffee Number of servings: 1 seatbelt use: always do you feel safe at home: Yes additional social history: - [place] ROS Const Const: Negative for fatigue, weakness, headache(s) or weight gain ENT ENT: Negative for headache(s), dizziness, Nosebleed/epistaxis or balance problems Cardio Chest Pain: No Palpitations: No Edema: None Muscle aches with walking: None Resp Respiratory: Negative for SOB with activity, SOB at rest or SOB orthopnea SOB lying down GI GI: Negative nausea, vomiting or heartburn Musc Musc: Negative for muscle aches/ myalgia, muscle weakness, joint pain or balance problems Neuro Neuro: Negative for dizziness, (more content not included)... Normal [facility] .Thyroglobulin by HEATH [id number] on 08-17-2024 Thyroglob HEATH <0.1 Low 1.5-38.5 [facility] Comment on above: Result Comment: According to the National Academy of Clinical Biochemistry, the reference interval for Thyroglobulin (TG) should be related to euthyroid patients and not for patients who underwent thyroidectomy. TG reference intervals for these patients depend on the residual mass of the thyroid tissue left after surgery. Establishing a post-operative baseline is recommended. The assay limit of quantitation is 0.1 ng/mL Thyroglobulin measured by [employer] Immunometric Assay Performed At: [facility] [id number] Aman Faye PhD Ph:[phone] Performed By: #### 0 [id number], CMP, TSH, GFR, [id number], VIDH #### [address] [address] THYRORFon 08-17-2024 Thyroglob Ab <1.0 Normal 0.0-0.9 [facility] Comment on above: Result Comment: Thyr oglobulin Antibody measured by [employer] Method[employer] It should be noted that the presence of thyroglobulin antibodies may not be pathogenic nor diagnostic, especially at very low levels. The assay tablet technician has found that four percent of individuals without evidence of thyroid disease or autoimmunity will have positive TgAb levels up to 4 IU/mL. Performed At: [address] [id number] Aman Faye PhD Ph:[phone] Performed By: #### 0 56388, CMP, TSH, GFR, [id number], VIDH #### [address] [address] .GFRon 08-15-2024 Estimated Glomerular Filtration Rate 69 ml/min/1.73sqm Normal [facility] Comment on above: Result Comment: Stages of Chronic Kidney Disease (CKD) Stage Description eGFR(ml/min/1.73 sq.m.) CKD 1 Normal kidney function or >=90 normal kindney function with possible kidney damage (ex. Proteinuria) CKD 2 Kidney damage with mild loss 60-89 of kidney function CKD 3a Mild to moderate loss of kidney 45-59 function CKD 3b Moderate to severe loss of 30-44 of kindey function CKD 4 Severe loss of kidney function 15-29 CKD 5 Kidney failure <15 Note: (go live 2024) the eGFR calculation was updated to the 2020 CKD-EPI creatinine equation without a race factor to calculate the eGFR results. Performed By: #### 0 16372, CMP, TSH, GFR, [id number], VIDH #### [address] [address] CMPon 08-15-2024 Albumin Level 3.6 G/dL Normal 3.2-4.8 [facility] Comment on above: Performed By: #### 0 83967, CMP, TSH, GFR, 413318, VIDH #### [address] [address] Albumin/Globulin [Mass ratio] 1.2 {ratio} Normal 0.9-1.6 [facility] Comment on above: Performed By: #### 0 42597, CMP, TSH, GFR, 027195, VIDH #### [place] [address] ALP [Catalytic activity/Vol] 88 U/L Normal 38-126 [facility] Comment on above: Performed By: #### 0 79264, CMP, TSH, GFR, 125213, VIDH #### [place] [address] ALT [Catalytic activity/Vol] 17 U/L Normal 10-49 [facility] Comment on above: Performed By: #### 0 46254, CMP, TSH, GFR, 810710, VIDH #### [place] [id number] AST [Catalytic activity/Vol] 16 U/L Normal 8-34 [facility] Comment on above: Performed By: #### 0 92126, CMP, TSH, GFR, 911324, VIDH #### [place] [address] Bili Total 0.60 mg/dL Normal 0.20-1.20 [facility] Comment on above: Result Comment: Use of this assay is not recommended for patients undergoing treatment with eltrombopag due to the potential for falsely elevated results. Performed By: #### 0 31859, CMP, TSH, GFR, 855607, VIDH #### [place] [address] BUN/Creatinine Ratio 18.8 ratio Normal 10.0-22.0 [facility] Comment on above: Performed By: #### 0 95196, CMP, TSH, GFR, 472698, VIDH #### [place] [id number] Calcium [Mass/Vol] 9.2 mg/dL Normal 8.7-10.4 [facility] Comment on above: Performed By: #### 0 89593, CMP, TSH, GFR, 130430, VIDH #### [place] [id number] Chloride [Moles/Vol] 107 mmol/L Normal 98-110 [facility] Comment on above: Performed By: #### 0 53168, CMP, TSH, GFR, 860684, VIDH #### [address] [address] CO2 [Moles/Vol] 25 mmol/L Normal 22-32 [facility] Comment on above: Performed By: #### 0 58678, CMP, TSH, GFR, 427621, VIDH #### [place] [id number] Creatinine [Mass/Vol] 0.85 mg/dL Normal 0.50-1.20 [facility] Comment on above: Result Comment: Test ing performed on [employer] analyzer using enzymatic creatinine methodology. Performed By: #### 0 84413, CMP, TSH, GFR, 842578, VIDH #### [place] [address] Electrolyte Balance 8.0 mEq/L Normal 4.0-15.0 [facility] Comment on above: Performed By: #### 0 19713, CMP, TSH, GFR, 921761, VIDH #### [place] [id number] Globulin 2.9 G/dL Normal 1.5-3.8 [facility] Comment on above: Performed By: #### 0 07182, CMP, TSH, GFR, 521670, VIDH #### [place] [id number] Glucose [Mass/Vol] 102 mg/dL Normal 82-115 [facility] Comment on above: Performed By: #### 0 76918, CMP, TSH, GFR, 708328, VIDH #### [address] [address] Potassium [Moles/Vol] 4.0 mmol/L Normal 3.5-5.0 [facility] Comment on above: Performed By: #### 0 42249, CMP, TSH, GFR, 908991, VIDH #### [place] [id number] Sodium [Moles/Vol] 140 mmol/L Normal 136-145 [facility] Comment on above: Performed By: #### 0 44190, CMP, TSH, GFR, 589535, VIDH #### [address] [address] Total Protein 6.5 G/dL Normal 5.7-8.2 [facility] Comment on above: Performed By: #### 0 84569, CMP, TSH, GFR, 545744, VIDH #### [address] [address] Urea nitrogen [Mass/Vol] 16.0 mg/dL Normal 8.0-22.0 [facility] Comment on above: Performed By: #### 0 54209, CMP, TSH, GFR, 709653, VIDH #### [address] [address] TSHon 08-15-2024 TSH 6.811 mIU/mL High 0.550-4.780 [facility] Comment on above: Performed By: #### 0 70104, CMP, TSH, GFR, 758596, VIDH #### [address] [address] VIDHon 08-15-2024 Vit. D 25-Hydroxy 45.3 ng/mL Normal [facility] Comment on above: Result Comment: Inte rpretive Values Based on Total 25(OH)D: Severe Deficiency <20 ng/mL Mild to Moderate Deficiency 20-30 ng/mL Optimum Levels 30-100 ng/mL Toxicity Possible >100 ng/mL Performed By: #### 0 08585, CMP, TSH, GFR, 832893, VIDH #### [address] [address] Anion gap in Serum or Plasma Ordered By: Bella Irving on 07-17-2024 Anion gap [Moles/Vol] 11 mmol/L 5-15 [facility] BUN/creatinine ratioOrdered By: Bella Irving on 07-17-2024 Urea nitrogen/Creatinine [Mass ratio] 24.5 mg/mg High 10- [facility] Bilirubin, totalOrdered By: Bella Irving on 07-17-2024 Bilirubin [Mass/Vol] 0.41 mg/dL 0.00-1.30 [facility] CPK Total, Creatine Kinaseon 07-17-2024 CPK TOTAL 61 U/L Normal 24-195 [facility] Comment on above: Performed By: #### L 300.3900, L500.2500, L501.4021, L300.4310, L100.0100 #### [facility] [address] [place], [place], [id number] Calculated very low density lipoprotein (VLDL) cholesterol measurementOrdered By: Bella Irving on 07-17-2024 Calculated very low density lipoprotein (VLDL) cholesterol measurement 41 mg/dL High 5-40 [facility] VLDL Cholesterol 41 mg/dL High 5-40 [facility] Carbon dioxide, total [Moles /volume] in Central venous bloodOrdered By: Bella Irving on 07-17-2024 CO2 [Moles/Vol] 22.0 mmol/L 21.0-32.0 [facility] Chloride assayOrdered By: Bebeto Irving on 07-17-2024 Chloride [Moles/Vol] 107 mmol/L 98-108 [facility] Comprehensive Metabolic Prof ilon 07-17-2024 Albumin [Mass/Vol] 4.1 g/dL Normal 3.4-4.8 [facility] Comment on above: Performed By: #### L 300.3900, L500.2500, L501.4021, L300.4310, L100.0100 #### [facility] [address] [place], [place], [id number] Albumin/Globulin [Mass ratio] 1.6 {ratio} Normal 0.9-2.4 [facility] Comment on above: Performed By: #### L 300.3900, L500.2500, L501.4021, L300.4310, L100.0100 #### [facility] [address] [place], [address] ALK PHOS 91 U/L Normal 35-104 [facility] Comment on above: Performed By: #### L 300.3900, L500.2500, L501.4021, L300.4310, L100.0100 #### [facility] [address] [place], [address] ALT [Catalytic activity/Vol] 16 U/L Normal <=34 [facility] Comment on above: Performed By: #### L 300.3900, L500.2500, L501.4021, L300.4310, L100.0100 #### [facility] [address] [place], [address] AST [Catalytic activity/Vol] 18 U/L Normal <=31 [facility] Comment on above: Performed By: #### L 300.3900, L500.2500, L501.4021, L300.4310, L100.0100 #### [facility] [address] [place], [address] Bilirubin [Mass/Vol] 0.41 mg/dL Normal 0.00-1.30 [facility] Comment on above: Performed By: #### L 300.3900, L500.2500, L501.4021, L300.4310, L100.0100 #### [facility] [address] [place], [address] BUN/CRE 24.5 RATIO High 10-20 [facility] Comment on above: Performed By: #### L 300.3900, L500.2500, L501.4021, L300.4310, L100.0100 #### [facility] [address] [place], [address] Calcium [Mass/Vol] 9.1 mg/dL Normal 7.6-11.0 [facility] Comment on above: Performed By: #### L 300.3900, L500.2500, L501.4021, L300.4310, L100.0100 #### [facility] [address] [place], [address] Chloride [Moles/Vol] 107 mmol/L Normal 98-108 [facility] Comment on above: Performed By: #### L 300.3900, L500.2500, L501.4021, L300.4310, L100.0100 #### [facility] [address] [place], [address] CO2 [Moles/Vol] 22.0 mmol/L Normal 21.0-32.0 [facility] Comment on above: Performed By: #### L 300.3900, L500.2500, L501.4021, L300.4310, L100.0100 #### [facility] [address] [place], [address] Creatinine [Mass/Vol] 0.85 mg/dL Normal 0.70-1.20 [facility] Comment on above: Performed By: #### L 300.3900, L500.2500, L501.4021, L300.4310, L100.0100 #### [facility] [address] [place], [address] GAP 11 Normal 5-15 [facility] Comment on above: Performed By: #### L 300.3900, L500.2500, L501.4021, L300.4310, L100.0100 #### [facility] [address] [place], [address] GFR/1.73 sq M.predicted among non-blacks MDRD (S/P/Bld) [Vol rate/Area] 69 mL/min/{1.73_m2} Normal >60 [facility] Comment on above: Result Comment: mL/m in/1.73m2 CKD-EPI Creatinine Equation (2020) Performed By: #### L 300.3900, L500.2500, L501.4021, L300.4310, L100.0100 #### [facility] [address] [place], [address] Globulin (S) [Mass/Vol] 2.6 g/dL Normal 2.2-4.2 [facility] Comment on above: Performed By: #### L 300.3900, L500.2500, L501.4021, L300.4310, L100.0100 #### [facility] [address] [place], [address] Glucose [Mass/Vol] 83 mg/dL Normal 70-99 [facility] Comment on above: Performed By: #### L 300.3900, L500.2500, L501.4021, L300.4310, L100.0100 #### [facility] [address] [place], [address] Potassium [Moles/Vol] 4.2 mmol/L Normal 3.3-5.1 [facility] Comment on above: Performed By: #### L 300.3900, L500.2500, L501.4021, L300.4310, L100.0100 #### [facility] [address] [place], [address] Sodium [Moles/Vol] 141 mmol/L Normal 133-145 [facility] Comment on above: Performed By: #### L 300.3900, L500.2500, L501.4021, L300.4310, L100.0100 #### [facility] [address] [place], [address] T PROT 6.7 g/dL Normal 5.9-8.4 [facility] Comment on above: Performed By: #### L 300.3900, L500.2500, L501.4021, L300.4310, L100.0100 #### [facility] [address] [place], [address] Urea nitrogen [Mass/Vol] 21 mg/dL High 4-19 [facility] Comment on above: Performed By: #### L 300.3900, L500.2500, L501.4021, L300.4310, L100.0100 #### [facility] [address] [place], [address] GFR/1.73 sq M.predicted sabrina g non-blacks MDRD (S/P/Bld) [Vol rate/Area]Ordered By: Bella Irving on 07-17-2024 Estimated GFR (MDRD) Non-Af Amer 69 >60 [facility] Comment on above: mL/min/1.73m2 CKD-EP I Creatinine Equation (2020) Glomerular filtration rate ( GFR) estimation/1.73 sq m using serum, plasma, or whole bOrdered By: Bella Irving on 07-17-2024 GFR/1.73 sq M.predicted among non-blacks MDRD (S/P/Bld) [Vol rate/Area] 69 mL/min/{1.73_m2} >60 [facility] Comment on above: mL/min/1.73m2 CKD-EP I Creatinine Equation (2020) LDL calc ser/plasOrdered By: Bella Irving on 07-17-2024 Cholesterol in LDL [Mass/Vol] 82 mg/dL [facility] Comment on above: Uaqxxrcbqx=774-276 m g/dL & Higher Spjj=151 mg/dL or greater LDL Cholesterol, Calculated 82 mg/dL [facility] Comment on above: Ngyzojlzsw=504-202 m g/dL & Higher Vstn=080 mg/dL or greater Laboratory - Chemistry and C hemistry - challengeOrdered By: Bella Irving on 07-17-2024 AST [Catalytic activity/Vol] 18 U/L <32 [facility] Lipid Profileon 07-17-2024 CHOL:HDL 3.29 Normal [facility] Comment on above: Performed By: #### L 300.3900, L500.2500, L501.4021, L300.4310, L100.0100 #### [facility] [address] [place], [address] Cholesterol [Mass/Vol] 177 mg/dL Normal <=200 [facility] Comment on above: Result Comment: Chol esterol level, Desirable <200 mg/dL Borderline high cholesterol 200-239 mg/dL High cholesterol >=240 mg/dL Recommendations of the NCEP Adult Treatment Panel for the following risk-cutoff thresholds for the [place] population. Performed By: #### L 300.3900, L500.2500, L501.4021, L300.4310, L100.0100 #### [facility] [address] [place], [address] Cholesterol in HDL [Mass/Vol] 54 mg/dL Normal [facility] Comment on above: Result Comment: Maria Del Rosario onal Cholesterol Education Program (NCEP) guidelines: <40 mg/dL: Low HDL-cholesterol (major risk factor for CHD) >= 60 mg/dL: High HDL-cholesterol (negative risk factor for CHD) HDL-cholesterol is affected by a number of factors, e.g. smoking, exercise, hormones, sex and age. Performed By: #### L 300.3900, L500.2500, L501.4021, L300.4310, L100.0100 #### [facility] [address] [place], [address] Cholesterol in LDL [Mass/Vol] 82 mg/dL Normal [facility] Comment on above: Result Comment: Bord wesdak=565-044 mg/dL Higher Apkh=322 mg/dL or greater Performed By: #### L 300.3900, L500.2500, L501.4021, L300.4310, L100.0100 #### [facility] [address] [place], [address] Cholesterol in VLDL [Mass/Vol] 41 mg/dL High 5-40 [facility] Comment on above: Performed By: #### L 300.3900, L500.2500, L501.4021, L300.4310, L100.0100 #### [facility] [address] [place], [address] Triglyceride [Mass/Vol] 204 mg/dL High [facility] Comment on above: Result Comment: The drugs N-Acetylcysteine and Metamizole may falsely depress this assay. Normal range: <150 mg/dL Borderline High: 150-199 mg/dL High: 200-499 mg/dL Very High: >500 mg/dL Performed By: #### L 300.3900, L500.2500, L501.4021, L300.4310, L100.0100 #### [facility] [address] [place], [address] Potassium (Unsp spec) [Mass/ Vol]Ordered By: Bella Irving on 07-17-2024 Potassium [Moles/Vol] 4.2 mmol/L 3.3-5.1 [facility] Potassium measurement (mass/ volume)Ordered By: Bella Irving on 07-17-2024 Potassium (Unsp spec) [Mass/Vol] 4.2 mmol/L 3.3-5.1 [facility] Screening total cholesterol/ high density lipoprotein (HDL) cholesterol ratioOrdered By: Bella Irving on 07-17-2024 Cholesterol.total/Choles terol in HDL [Mass ratio] 3.29 {ratio} [facility] Serum creatinine measurement (mass/volume)Ordered By: Bella Irving on 07-17-2024 Creatinine [Mass/Vol] 0.85 mg/dL 0.70-1.20 [facility] Serum globulin measurementOr dered By: Bella Irving on 07-17-2024 Globulin (S) [Mass/Vol] 2.6 g/dL 2.2-4.2 [facility] Serum glucose measurement (m ass/volume)Ordered By: Bella Irving on 07-17-2024 Glucose [Mass/Vol] 83 mg/dL 70-99 [facility] Serum or plasma alanine boyd otransferase (ALT) measurementOrdered By: Bella Irving on 07-17-2024 ALT [Catalytic activity/Vol] 16 U/L <35 [facility] Serum or plasma albumin idris urement (mass/volume)Ordered By: Bella Irving on 07-17-2024 Albumin [Mass/Vol] 4.1 g/dL 3.4-4.8 [facility] Serum or plasma albumin/glob ulin mass ratioOrdered By: Bella Irving on 07-17-2024 Albumin/Globulin [Mass ratio] 1.6 {ratio} 0.9-2.4 [facility] Serum or plasma alkaline lin sphatase measurementOrdered By: Bella Irving on 07-17-2024 ALP [Catalytic activity/Vol] 91 U/L 35-104 [facility] Serum or plasma calcium idris urement (mass/volume)Ordered By: Bella Irving on 07-17-2024 Calcium [Mass/Vol] 9.1 mg/dL 7.6-11.0 [facility] Serum or plasma cholesterol in HDL measurement (mass/volume)Ordered By: Bella Irving on 07-17-2024 Cholesterol in HDL [Mass/Vol] 54 mg/dL >40 [facility] Comment on above: National Cholesterol Education Program (NCEP) guidelines:<40 mg/dL: Low HDL-cholesterol (major risk factor for CHD)>= 60 mg/dL: High HDL-cholesterol (negative risk factor for CHD)HDL-cholesterol is affected by a number of factors, e.g. smoking, exercise, hormones, sex and age. Serum or plasma cholesterol measurement (mass/volume)Ordered By: Bella Irving on 07-17-2024 Cholesterol [Mass/Vol] 177 mg/dL <201 [facility] Comment on above: Cholesterol level, D esirable <200 mg/dLBorderline high cholesterol 200-239 mg/dLHigh cholesterol >=240 mg/dLRecommendations of the NCEP Adult Treatment Panel for the following risk-cutoff thresholds for the [place] population. Serum or plasma creatine kin ase activityOrdered By: Bella Irving on 07-17-2024 CK [Catalytic activity/Vol] 61 U/L 24-195 [facility] Serum or plasma urea nitroge n measurement (mass/volume)Ordered By: Bella Irving on 07-17-2024 Urea nitrogen [Mass/Vol] 21 mg/dL High 4-19 [facility] Sodium levelOrdered By: Sivakumar Irving on 07-17-2024 Sodium [Moles/Vol] 141 mmol/L 133-145 [facility] Total proteinOrdered By: Gio Irving on 07-17-2024 Protein [Mass/Vol] 6.7 g/dL 5.9-8.4 [facility] Triglycerides measurementOrd ered By: Bella Irving on 07-17-2024 Triglyceride [Mass/Vol] 204 mg/dL High <199 [facility] Comment on above: The drugs N-Acetylcy steine and Metamizole may falsely depress this assay. Normal range: <150 mg/dLBorderline High: 150-199 mg/dLHigh: 200-499 mg/dLVery High: >500 mg/dL Neurology Visit Reporton Neurology Visit Report [facility] [address], [address] [place] [address] OFFICE VISIT Date of Service: 07/13/24 MR#: [id number] Acct: [id number] Name: LILLIANA HUBER Rep #: [id number] : 1945 Provider: Dr. Royal kumar MD Age/Sex: 78/F Location: [facility] Status: Signed HPI HPI Chief Complaint: Details: Interim History: Lilliana returns for follow-up visit. She has a history of hypertension, hyperlipidemia, hypothyroidism, thyroid cancer status post thyroidectomy in 1993, and left Corrales's palsy in 2015 who presented for evaluation of strokes. She was somewhat vague with regard to her history. It appears that she developed a left Corrales's palsy in August 2015 and the following month had vertigo, left-sided hearing loss and left-sided tinnitus. She had nausea. She was hospitalized and was diagnosed with M???ni???re's disease. She was treated with various medications including scopolamine, hydrochlorothiazide, clonazepam and meclizine. She was on aspirin at the time this episode occurred. At her initial of assessment at this office in 2022, she denied having numbness, weakness in the extremities, headaches, vision change, dizziness or tinnitus. She continues to experience chronic left-sided hearing loss and uses a left hearing aid. She has had mild memory difficulty however she remains independent in her daily activities. She is able to perform calculations to manage her finances. No further worsening of her memory has been noted over recent months. She stated that she had a myocardial infarction in February 2023 and had coronary artery stents placed at that time. Clopidogrel was initiated. She continues to take aspirin. Zetia was discontinued. 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 She apparently had an episode of dizziness in September 2022 and presented to the hospital and the possibility of stroke was raised. Her evaluation did not reveal evidence of acute cerebrovascular disease. Her head MRI revealed diffuse cerebral atrophy and moderate bilateral periventricular and subcortical white matter chronic small vessel ischemic disease. Records indicate a prior history of stroke however the patient is unclear regarding details of specific symptoms. Citalopram was not of benefit for her depression and was discontinued. Sertraline was not well- tolerated. She had previously seen a counselor for her depression. She continues to have some of her depression however she does not wish to take a medication for this. She has not had symptoms suggestive of recurrent cerebrovascular ischemia. Mini-Mental status exam score was 29/30 in January 2023. In February 2024, she had a transient period of feeling of knocking sensation in the head that occurred at night; this resolved later in 2023. 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 An old left basal ganglia infarct was noted. Mild diffuse age-related cerebral atrophy is noted. Mild to moderate bilateral periventricular and subcortical white matter chronic small vessel ischemic disease is noted. A head CTA in April 2024 revealed at least 50% stenosis in the proximal basilar artery due to noncalcified plaques but unchanged, segmental high-grade stenosis along the hypoplastic intradural segment of the left vertebral artery is unchanged, a heavy calcified plaques along the dominant intradural segment of the right vertebral artery without significant stenosis. and 50% segmental stenosis along the left anterior pericallosal artery; no significant change was noted when compared to her head CT from 03/21/2024. Physical Exam: Neuro: The patient is awake; she is mildly bradyphrenic; Mini-Mental status exam score is 28/30; a mild left facial palsy is noted Neck: No bruits Heart: Regular rhythm and rate Supplemental Info ESR (11/02/2018): Normal Head MRI (02/20/2020): COMPARISON: 01/05/2017 FINDINGS: There is mild cerebral atrophy with widening of the extra-axial spaces and ventricular dilatation. There are multiple white matter hyperintensities, distributed throughout the deep white matter tracts of the cerebral hemispheres, consistent with moderate chronic white matter ischemic changes. Normal bilateral basal ganglia. Normal thalami. There is no extra-axial fluid accumulation. Normal flow voids within the major intracranial circulation suggesting patency by spin echo criteria. Normal sella turcica, pituitary gland, infundibular stalk, optic chiasm and hypothalamus. Normal tectal plate and pineal gland. Normal midbrain, sonya and medulla. Normal cerebellum. Normal basal cisterns. IMPRESSION: No acute intracranial abnormality. Moderate chronic microvascular ischemic changes. Select images were reviewed on 02/15/2023. Moderat (more content not included)... Normal [facility] Absolute neutrophil countOrd ered By: Elis Ronald on 05-22-2024 Neutrophils (Bld) [#/Vol] 3.4 10*3/uL 2.0-7.7 [facility] Albumin to globulin ratioOrd ered By: Elis Cardenas on 05-22-2024 Albumin/Globulin [Mass ratio] 1.1 {ratio} 0.9-2.4 [facility] Basophil percentageOrdered B y: Elis Rameshjairo on 05-22-2024 Basophils/100 WBC (Bld) 1.4 % High 0-1 [facility] Bilirubin, totalOrdered By: Elis Rameshjairo on 05-22-2024 Bilirubin [Mass/Vol] 0.70 mg/dL 0.20-1.00 [facility] Comment on above: For patients on eltr ombopag therapy, use of Dimension [place] TBIL is not recommended. Blood urea nitrogen (BUN)/cr eatinine ratioOrdered By: Elis Cardenas on 05-22-2024 Urea nitrogen/Creatinine [Mass ratio] 22.5 mg/mg High 10-20 [facility] CBC W/Diff, Automatedon 04-27 Absolute Lymph 1.49 X10 3/uL Normal 0.83-4.51 [facility] Comment on above: Performed By: #### L 300.3900, L500.2500, L501.4021, L300.4310, L100.0100 #### [facility] [place], [address] Absolute Neut 3.4 X10 3/uL Normal 2.0-7.7 [facility] Comment on above: Performed By: #### L 300.3900, L500.2500, L501.4021, L300.4310, L100.0100 #### [facility] [address] [place], [address] Basophils/100 WBC (Bld) 1.4 % High 0-1 [facility] Comment on above: Performed By: #### L 300.3900, L500.2500, L501.4021, L300.4310, L100.0100 #### [facility] [address] [place], [address] Eosinophils/100 WBC (Bld) 3.0 % Normal 0-5 [facility] Comment on above: Performed By: #### L 300.3900, L500.2500, L501.4021, L300.4310, L100.0100 #### [facility] [address] [place], [address] Erythrocyte distribution width (RBC) [Ratio] 13.2 % Normal 11.6-14.6 [facility] Comment on above: Performed By: #### L 300.3900, L500.2500, L501.4021, L300.4310, L100.0100 #### [facility] [address] [place], [address] Hematocrit (Bld) [Volume fraction] 41.7 % Normal 37-47 [facility] Comment on above: Performed By: #### L 300.3900, L500.2500, L501.4021, L300.4310, L100.0100 #### [facility] [address] [place], [address] Hemoglobin (Bld) [Mass/Vol] 13.5 g/dL Normal 12.0-15.0 [facility] Comment on above: Performed By: #### L 300.3900, L500.2500, L501.4021, L300.4310, L100.0100 #### [facility] [address] [place], [address] IG% 0.400 Normal 0.0-0.9 [facility] Comment on above: Result Comment: IG% - Immature Granulocytes (promyelocytes, myelocytes and metamyelocytes) > 1% indicates that a LEFT SHIFT is Present. Performed By: #### L 300.3900, L500.2500, L501.4021, L300.4310, L100.0100 #### [facility] [address] [place], [address] Lymphocytes/100 WBC (Bld) 26.3 % Normal 19-41 [facility] Comment on above: Performed By: #### L 300.3900, L500.2500, L501.4021, L300.4310, L100.0100 #### [facility] [address] [place], [address] MCH (RBC) [Entitic mass] 29.5 pg Normal 27.0-32.0 [facility] Comment on above: Performed By: #### L 300.3900, L500.2500, L501.4021, L300.4310, L100.0100 #### [facility] [address] [place], [address] MCHC (RBC) [Mass/Vol] 32.4 g/dL Normal 32-36 [facility] Comment on above: Performed By: #### L 300.3900, L500.2500, L501.4021, L300.4310, L100.0100 #### [facility] [address] [place], [address] MCV (RBC) [Entitic vol] 91.2 fL Normal 81-99 [facility] Comment on above: Performed By: #### L 300.3900, L500.2500, L501.4021, L300.4310, L100.0100 #### [facility] [address] [place], [address] Monocytes/100 WBC (Bld) 8.5 % Normal 0-10 [facility] Comment on above: Performed By: #### L 300.3900, L500.2500, L501.4021, L300.4310, L100.0100 #### [facility] [address] [place], [address] Neutrophils/100 WBC (Bld) 60.4 % Normal 47-70 [facility] Comment on above: Performed By: #### L 300.3900, L500.2500, L501.4021, L300.4310, L100.0100 #### [facility] [address] [place], [address] Nucleated RBC (Bld) [#/Vol] 0 10*3/uL Normal 0-5 [facility] Comment on above: Performed By: #### L 300.3900, L500.2500, L501.4021, L300.4310, L100.0100 #### [facility] [address] [place], [address] Platelet mean volume (Bld) [Entitic vol] 9.4 fL Normal 6.2-12.0 [facility] Comment on above: Performed By: #### L 300.3900, L500.2500, L501.4021, L300.4310, L100.0100 #### [facility] [address] [place], [address] Platelets (Bld) [#/Vol] 218 10*3/uL Normal 150-450 [facility] Comment on above: Performed By: #### L 300.3900, L500.2500, L501.4021, L300.4310, L100.0100 #### [facility] [address] [place], [address] RBC (Bld) [#/Vol] 4.57 10*6/uL Normal 4.2-5.4 [facility] Comment on above: Performed By: #### L 300.3900, L500.2500, L501.4021, L300.4310, L100.0100 #### [facility] [address] [place], [address] RDW SD 44.8 fl High 35.1-43.9 [facility] Comment on above: Performed By: #### L 300.3900, L500.2500, L501.4021, L300.4310, L100.0100 #### [facility] [address] [place], [address] WBC (Bld) [#/Vol] 5.7 10*3/uL Normal 4.4-11.0 [facility] Comment on above: Performed By: #### L 300.3900, L500.2500, L501.4021, L300.4310, L100.0100 #### [facility] [address] [place], [address] Carbon dioxide measurementOr dered By: Elis Cardenas on 05-22-2024 CO2 [Moles/Vol] 22.0 mmol/L 21.0-32.0 [facility] Chloride measurementOrdered By: Elis Cardenas on 05-22-2024 Chloride [Moles/Vol] 110 mmol/L High 98-107 [facility] Comprehensive Metabolic Prof ilon 05-22-2024 Albumin [Mass/Vol] 3.6 g/dL Normal 3.2-5.0 [facility] Comment on above: Performed By: #### L 300.3900, L500.2500, L501.4021, L300.4310, L100.0100 #### [facility] [address] [place], [address] Albumin/Globulin [Mass ratio] 1.1 {ratio} Normal 0.9-2.4 [facility] Comment on above: Performed By: #### L 300.3900, L500.2500, L501.4021, L300.4310, L100.0100 #### [facility] [address] [place], [address] ALK P 88 U/L Normal 45-117 [facility] Comment on above: Performed By: #### L 300.3900, L500.2500, L501.4021, L300.4310, L100.0100 #### [facility] [address] [place], [address] ALT [Catalytic activity/Vol] 24 U/L Normal 13-56 [facility] Comment on above: Performed By: #### L 300.3900, L500.2500, L501.4021, L300.4310, L100.0100 #### [facility] [address] [place], [address] AST [Catalytic activity/Vol] 17 U/L Normal 15-37 [facility] Comment on above: Performed By: #### L 300.3900, L500.2500, L501.4021, L300.4310, L100.0100 #### [facility] [address] [place], [address] Bilirubin [Mass/Vol] 0.70 mg/dL Normal 0.20-1.00 [facility] Comment on above: Result Comment: For patients on eltrombopag therapy, use of Dimension [place] TBIL is not recommended. Performed By: #### L 300.3900, L500.2500, L501.4021, L300.4310, L100.0100 #### [facility] [address] [place], [address] BUN/CRE 22.5 RATIO High 10-20 [facility] Comment on above: Performed By: #### L 300.3900, L500.2500, L501.4021, L300.4310, L100.0100 #### [facility] [address] [place], [address] CA,Total 9.2 mg/dL Normal 8.5-10.1 [facility] Comment on above: Performed By: #### L 300.3900, L500.2500, L501.4021, L300.4310, L100.0100 #### [facility] [address] [place], [address] Chloride [Moles/Vol] 110 mmol/L High 98-107 [facility] Comment on above: Performed By: #### L 300.3900, L500.2500, L501.4021, L300.4310, L100.0100 #### [facility] [address] [place], [address] CO2 [Moles/Vol] 22.0 mmol/L Normal 21.0-32.0 [facility] Comment on above: Performed By: #### L 300.3900, L500.2500, L501.4021, L300.4310, L100.0100 #### [facility] [address] [place], [address] Creatinine [Mass/Vol] 0.89 mg/dL Normal 0.55-1.02 [facility] Comment on above: Result Comment: The validity of the calculated GFR GFRAA in patients over 70 years has not been determined. Clinical correlation is essential. Performed By: #### L 300.3900, L500.2500, L501.4021, L300.4310, L100.0100 #### [facility] [address] [place], [address] EST GFR - AA 79 mL/min Normal >60 [facility] Comment on above: Result Comment: Afri can [place] GFR Calc Performed By: #### L 300.3900, L500.2500, L501.4021, L300.4310, L100.0100 #### [facility] [address] [place], [address] GAP 7 Normal 5-15 [facility] Comment on above: Performed By: #### L 300.3900, L500.2500, L501.4021, L300.4310, L100.0100 #### [facility] [address] [place], [address] GFR/1.73 sq M.predicted among non-blacks MDRD (S/P/Bld) [Vol rate/Area] 65 mL/min/{1.73_m2} Normal >60 [facility] Comment on above: Result Comment: Non- GFR Calc Performed By: #### L 300.3900, L500.2500, L501.4021, L300.4310, L100.0100 #### [facility] [address] [place], [address] Globulin (S) [Mass/Vol] 3.4 g/dL Normal 2.2-4.2 [facility] Comment on above: Performed By: #### L 300.3900, L500.2500, L501.4021, L300.4310, L100.0100 #### [facility] [address] [place], [address] Glucose [Mass/Vol] 93 mg/dL Normal 74-106 [facility] Comment on above: Performed By: #### L 300.3900, L500.2500, L501.4021, L300.4310, L100.0100 #### [facility] [address] [place], [address] Potassium [Moles/Vol] 4.3 mmol/L Normal 3.5-5.1 [facility] Comment on above: Performed By: #### L 300.3900, L500.2500, L501.4021, L300.4310, L100.0100 #### [facility] [address] [place], [address] Sodium [Moles/Vol] 139 mmol/L Normal 136-145 [facility] Comment on above: Performed By: #### L 300.3900, L500.2500, L501.4021, L300.4310, L100.0100 #### [facility] [address] [place], [address] T PROT 7.0 g/dL Normal 6.4-8.2 [facility] Comment on above: Performed By: #### L 300.3900, L500.2500, L501.4021, L300.4310, L100.0100 #### [facility] [address] [place], [address] Urea nitrogen [Mass/Vol] 20 mg/dL High 7-18 [facility] Comment on above: Performed By: #### L 300.3900, L500.2500, L501.4021, L300.4310, L100.0100 #### [facility] [address] [place], [address] Eosinophil percentageOrdered By: Elis Cardenas on 05-22-2024 Eosinophils/100 WBC (Bld) 3.0 % 0-5 [facility] Erythrocyte distribution wid th ratioOrdered By: Elis Cardenas on 05-22-2024 Erythrocyte distribution width (RBC) [Ratio] 13.2 % 11.6-14.6 [facility] Erythrocyte distribution wid th standard deviationOrdered By: Elis Cardenas on 05-22-2024 Erythrocyte distribution width (RBC) [Entitic vol] 44.8 fL High 35.1-43.9 [facility] Estimated glomerular filtrat ion rate (GFR) AmericanOrdered By: Elis Cardenas on 05-22-2024 Estimated GFR (MDRD) Amer 79 mL/min >60 [facility] Comment on above: GFR Calc Glomerular filtration rate ( GFR) estimationOrdered By: Elis Cardenas on 05-22-2024 Estimated GFR (MDRD) Non-Af Amer 65 mL/min >60 [facility] Comment on above: Non- GFR Calc Glucose measurementOrdered B y: Elis Cardenas on 05-22-2024 Glucose [Mass/Vol] 93 mg/dL 74-106 [facility] Hematocrit Auto (Bld) [Volum e fraction]Ordered By: Elis Cardenas on 05-22-2024 Hematocrit (Bld) [Volume fraction] 41.7 % 37-47 [facility] Hemoglobin measurementOrdere d By: Elis Cardenas on 05-22-2024 Hemoglobin (Bld) [Mass/Vol] 13.5 g/dL 12.0-15.0 [facility] Immature granulocytes/100 WB C Auto (Bld)Ordered By: Elis Cardenas on 05-22-2024 Immature granulocytes/100 WBC (Bld) 0.400 % 0.0-0.9 [facility] Comment on above: IG% - Immature Granu locytes (promyelocytes, myelocytes and metamyelocytes) > 1% indicates that a LEFT SHIFT is Present. Laboratory - Chemistry and C hemistry - challengeOrdered By: Elis Cardenas on 05-22-2024 AST [Catalytic activity/Vol] 17 U/L 15-37 [facility] Lymphocytes Auto (Unsp spec) [#/Vol]Ordered By: Elis Cardenas on 05-22-2024 Lymphocytes (Bld) [#/Vol] 1.49 10*3/uL 0.83-4.51 [facility] Lymphocytes/100 WBC Auto (Un sp spec)Ordered By: Elis Cardenas on 05-22-2024 Lymphocytes/100 WBC (Bld) 26.3 % 19-41 [facility] [facility] MCV (mean corpuscular volume ) determinationOrdered By: Elis Cardenas on 05-22-2024 MCV (RBC) [Entitic vol] 91.2 fL 81-99 [facility] Mean corpuscular hemoglobin (MCH) determinationOrdered By: Elis Cardenas on 05-22-2024 MCH (RBC) [Entitic mass] 29.5 pg 27.0-32.0 [facility] Mean corpuscular hemoglobin concentration (MCHC) determinationOrdered By: Elis Cardenas on 05-22-2024 MCHC (RBC) [Mass/Vol] 32.4 g/dL 32-36 [facility] Mean platelet volume determi nationOrdered By: Elis Cardenas on 05-22-2024 Platelet mean volume (Bld) [Entitic vol] 9.4 fL 6.2-12.0 [facility] Monocyte percentageOrdered B y: Elis Cardenas on 05-22-2024 Monocytes/100 WBC (Bld) 8.5 % 0-10 [facility] Neutrophil percentageOrdered By: Elis Cardenas on 05-22-2024 Neutrophils/100 WBC (Bld) 60.4 % 47-70 [facility] Nucleated red blood cell per centageOrdered By: Elis Cardenas on 05-22-2024 Nucleated RBC/100 WBC (Bld) [Ratio] 0 % 0-5 [facility] Platelet countOrdered By: Shaneka Cardenas on 05-22-2024 Platelets (Bld) [#/Vol] 218 10*3/uL 150-450 [facility] Potassium measurementOrdered By: Elis Cardenas on 05-22-2024 Potassium [Moles/Vol] 4.3 mmol/L 3.5-5.1 [facility] RBC Auto (Bld) [#/Vol]Ordere d By: Elis Cardenas on 05-22-2024 RBC (Bld) [#/Vol] 4.57 10*6/uL 4.2-5.4 [facility] Serum anion gap measurementO rdered By: Elis Cardenas on 05-22-2024 Anion gap [Moles/Vol] 7 mmol/L 5-15 [facility] Serum globulin measurementOr dered By: Elis Cardenas on 05-22-2024 Globulin (S) [Mass/Vol] 3.4 g/dL 2.2-4.2 [facility] Serum or plasma alanine boyd otransferase (ALT) measurementOrdered By: Elis Cardenas on 05-22-2024 ALT [Catalytic activity/Vol] 24 U/L 13-56 [facility] Serum or plasma albumin idris urement (mass/volume)Ordered By: Elis Cardenas on 05-22-2024 Albumin [Mass/Vol] 3.6 g/dL 3.2-5.0 [facility] Serum or plasma alkaline lin sphatase measurementOrdered By: Elislenny Cardenas on 05-22-2024 ALP [Catalytic activity/Vol] 88 U/L 45-117 [facility] Serum or plasma calcium idris urement (mass/volume)Ordered By: Elis Cardenas on 05-22-2024 Calcium [Mass/Vol] 9.2 mg/dL 8.5-10.1 [facility] Serum or plasma creatinine m easurement (mass/volume)Ordered By: Elis Cardenas on 05-22-2024 Creatinine [Mass/Vol] 0.89 mg/dL 0.55-1.02 [facility] Comment on above: The validity of the calculated GFR & GFRAA in patients over 70 years has not been determined. Clinical correlation is essential. Serum or plasma urea nitroge n measurement (mass/volume)Ordered By: Elis Cardenas on 05-22-2024 Urea nitrogen [Mass/Vol] 20 mg/dL High 7-18 [facility] Sodium levelOrdered By: Elis Cardenas on 05-22-2024 Sodium [Moles/Vol] 139 mmol/L 136-145 [facility] Total proteinOrdered By: Camila Cardenas on 05-22-2024 Protein [Mass/Vol] 7.0 g/dL 6.4-8.2 [facility] White blood cell (WBC) count Ordered By: Elis Cardenas on 05-22-2024 WBC (Bld) [#/Vol] 5.7 10*3/uL 4.4-11.0 [facility] MR/BMS.BVSon 05-16-2024 MR/BMS.BVS [facility] [address] [place], [place] [address] OFFICE VISIT Date of Service: 05/16/24 MR#: [id number] Acct: [id number] Name: LILLIANA HUBER Rep #: [id number] : 1945 Provider: HANNA Jarvis Age/Sex: 78/F Location: [facility] Status: Signed Intake Vital Signs 03/13/24 08:34 05/16/24 13:46 Height 5 ft 2 in Weight: 175 lb BP 143/77 H Blood Pressure Location Lt radial Position Sitting Respiration 16 Pulse 60 Pulse Source Monitor Temp 98 F Temp Source Temporal Pulse Oximetry (%) 98 Oxygen Delivery Method room air Intake Visit Reasons: occlusion of basilar artery Chief Complaint: Is patient in pain?: No Allergies Sulfa (Sulfonamide Antibiotics) Allergy (Intermediate, Verified 05/16/24 13:47) Rash pepper (genus Capsicum) Allergy (Verified 05/16/24 13:47) Swelling adhesive tape Adverse Reaction (Intermediate, Verified 05/16/24 13:47) Rash Penicillins Adverse Reaction (Unknown, Verified 05/16/24 13:47) Rash Medications ???Medication ???Instructions ???Recorded ???Confirmed ???Type B-complex with vitamin C 1 tab PO DAILY 05/21/22 05/16/24 History ascorbic acid (vitamin C) 500 mg 500 mg PO DAILY 05/21/22 05/16/24 History tablet (Vitamin C) calcium ER 600 mg (as carb,cit)-D3 2 tab PO DAILY 05/21/22 05/16/24 History 12.5 mcg (500 unit) tablet, ext.rel (Citracal-D3 Slow Release) cholecalciferol (vitamin D3) 125 125 mcg PO DAILY 05/21/22 05/16/24 History mcg (5,000 unit) tablet (Vitamin D3) garlic 1,000 mg capsule 1,000 mg PO DAILY 05/21/22 05/16/24 History lysine 1,000 mg tablet 1,000 mg PO DAILY 05/21/22 05/16/24 History turmeric root extract 500 mg 500 mg PO DAILY 05/21/22 05/16/24 History capsule zinc lozenges 15 mg 15 mg PO DAILY 05/21/22 05/16/24 History aspirin 81 mg tablet,delayed 81 mg PO DAILY@0800 #90 tabs 03/13/23 05/16/24 Rx release Handicap Placard #1 ea 04/23/23 05/16/24 Rx levothyroxine 137 mcg tablet 137 mcg PO DAILY 04/23/23 05/16/24 History amlodipine 5 mg tablet 5 mg PO DAILY #90 tabs 10/11/23 05/16/24 Rx atenolol 25 mg tablet 25 mg PO DAILY #90 tabs 10/11/23 05/16/24 Rx clopidogrel 75 mg tablet 75 mg PO DAILY #90 tabs 10/11/23 05/16/24 Rx lisinopril 20 mg tablet 20 mg PO DAILY #90 tabs 10/11/23 05/16/24 Rx atorvastatin 40 mg tablet 40 mg PO QDAY #90 tabs 04/25/24 05/16/24 Rx Is last menstrual period known: No Post menopausal: Yes Patient : No Have you fallen in the past year?: No PFSH Medical History Coronary artery disease Hypertension Dyslipidemia Mild cognitive impairment Ischemic cardiomyopathy Arteriosclerotic cardiovascular disease Hearing loss, left Chest pain Stroke/cerebrovascul ar accident Compression neuropathy of genitofemoral nerve Stress incontinence Wears hearing aid Wears glasses Post-menopausal Depression Thyroid disease Arthritis High cholesterol Non-smoker Leg cramps History of stress test History of echocardiogram Uterovaginal prolapse, incomplete TIA (transient ischemic attack) History of stroke Cancer GERD (gastroesophageal reflux disease) Menieres disease Corrales's palsy Aphthous ulcer of mouth Hypothyroidism Hyperlipidemia Benign essential hypertension Surgical History Stented coronary artery (05/12/23) Status post hysterectomy with oophorectomy Hx of surgical procedure H/O tubal ligation H/O dilation and curettage H/O breast biopsy Hx of colonoscopy History of thyroidectomy H/O hernia repair Family History Mother Heart disease Social History Smoking Status: Never smoker alcohol intake: never substance use type: does not use caffeine: Yes Type: coffee Number of servings: 1 seatbelt use: always do you feel safe at home: Yes additional social history: - [place] HPI HPI HPI: LILLIANA HUBER, is a 78 F who presents to the office today as referred from [facility] for evaluation of basilar artery atherosclerosis identified on recent Head CTA. She had the head CTA performed 05/02/24 due to a persistent knocking sensation in her head at night which shortly subsided and has not recurred. She denies any recent episodes of vertigo, new/focal numbness/paresthesia s, weakness, vision loss/double vision, lack of coordination or other symptoms of vertebrobasilar insufficiency. She reports a history of strokes identified on imaging (noted L sided lacunar infarcts on head CTA) but no strokes with which she had noticeable symptoms. She reports a remote history of 2 prior episodes of vertigo which were treated successfully as BP (more content not included)... Normal [facility] CREATININE FINGERSTICKon Creatinine [Mass/Vol] 1.2 mg/dL High 0.55-1.02 [facility] Comment on above: Performed By: #### L 9100.0200 #### [facility] [address] [place], [address] GFR/1.73 sq M.predicted among non-blacks MDRD (S/P/Bld) [Vol rate/Area] 44.0000 mL/min/{1.73_m2} Low >60 [facility] Comment on above: Performed By: #### L 9100.0200 #### [facility] [address] [place], [address] CTA Head W/WO Contraston CTA Head W/WO Contrast [facility] Imaging Services [address] [place] [address] CTA Head W/WO Contrast MR#: [id number] Acct: [id number] Name: LILLIANA HUBER Rep #: [id number] : 1945 F 78 From: Arnulfo Green MD PCP: Dr. Elis Cardenas, DO Status: [facility] Study: CTA Head W/WO Contrast Date of Exam: 05/02/24 Exam# [id number] Ordering Dr: Royal Martinez MD [id number] INDICATION: Basilar artery stenosis EXAMINATION: CTA HEAD - CTA Head WO/W Contrast Injection TECHNIQUE: [place]/head CT angiogram protocol was performed following IV contrast. 3D reconstructions were reviewed. The protocol utilizes one or more of the following dose reduction techniques: automated exposure control, adjustment of mA and/or kV according to patient size, and/or use of iterative reconstruction technique. The protocol utilizes one or more of the following dose reduction techniques: automated exposure control, adjustment of mA and/or kV according to patient size, and/or use of iterative reconstruction technique. IV Contrast dosage and agent: 100 mL of Isovue-370. RADIATION DOSAGE (If Supplied By Facility): CTDIvol = ( 26.65 ) mGy, DLP = ( 1290.43 ) mGycm COMPARISON: CTA Head 03/21/2024. ____ FINDINGS: --Anterior circulation: ICAs: Multiple calcified plaques in both internal carotid artery siphons without significant stenosis. ACAs: 50% segmental stenosis in the left anterior pericallosal artery. Small vessel plaques both anterior cerebral arteries. ACOM: Present. MCAs: Small vessel plaques in both middle cerebral arteries without significant stenosis. --Posterior circulation: PCOMs: Multiple small vessel plaques along the posterior communicating arteries. humanities instructor: Multiple small vessel plaques in both posterior cerebral arteries without significant stenosis. BASILAR ARTERY: At least 50% stenosis at the proximal basilar artery due to noncalcified plaques. VERTEBRAL ARTERIES: Segmental high-grade stenosis in the hypoplastic intradural segment of the left vertebral artery. Heavy calcified plaques along the dominant intradural segment of the right vertebral artery without significant stenosis.. No evidence of intracranial aneurysm or vascular malformation. CT/CTA Head W/WO Contrast IMPRESSION: 1. At least 50% stenosis in the proximal basilar artery due to noncalcified plaques but unchanged. 2. Segmental high-grade stenosis along the hypoplastic intradural segment of the left vertebral artery is unchanged. 3. Heavy calcified plaques along the dominant intradural segment of the right vertebral artery without significant stenosis. 4. 50% segmental stenosis along the left anterior pericallosal artery. 5. No significant stenosis of the middle cerebral arteries. 6. No significant interval change when compared to 03/21/2024. Electronically Signed: Arnulfo Green MD at 15:51 EST , CC: Dr. Elis Cardenas DO; Dr. Royal Martinez MD Enamel Dipper: Signed Normal [facility] Creatinine measurement at be dsideOrdered By: Royal Martinez on 05-02-2024 Creatinine [Mass/Vol] 1.2 mg/dL High 0.55-1.02 [facility] EGFROrdered By: Royal kumar on 05-02-2024 GFR/1.73 sq M.predicted among non-blacks MDRD (S/P/Bld) [Vol rate/Area] 44.0000 mL/min/{1.73_m2} Low >60 [facility] Neurology Visit Reporton Neurology Visit Report [facility] [address] [place] [address], [address] [place] [address] OFFICE VISIT Date of Service: 04/25/24 MR#: [id number] Acct: [id number] Name: LILLIANA HUBER Rep #: [id number] : 1945 Provider: Dr. Royal kumar MD Age/Sex: 78/F Location: [facility]. Status: Signed [facility] Chief Complaint: Details: Interim History: Lilliana returns for follow-up visit. She has a history of hypertension, hyperlipidemia, hypothyroidism, thyroid cancer status post thyroidectomy in 1993, and left Corrales's palsy in 2015 who presented for evaluation of strokes. She was somewhat vague with regard to her history. It appears that she developed a left Corrales's palsy in August 2015 and the following month had vertigo, left-sided hearing loss and left-sided tinnitus. She had nausea. She was hospitalized and was diagnosed with M???ni???re's disease. She was treated with various medications including scopolamine, hydrochlorothiazide, clonazepam and meclizine. She was on aspirin at the time this episode occurred. At her initial of assessment at this office in 2022, she denied having numbness, weakness, headaches, vision change, dizziness or tinnitus. She continues to experience chronic left-sided hearing loss and uses a left hearing aid. She has had mild memory difficulty however she remains independent in her daily activities. She is able to perform calculations to manage her finances. No further worsening of her memory has been noted over recent months. She stated that she had a myocardial infarction in February 2023 and had coronary artery stents placed at that time. Clopidogrel was initiated. She continues to take aspirin. Zetia was discontinued. Atorvastatin was resumed earlier in 2023 and her dose was increased by her plastic tile layer to 40 mg daily for her hyperlipidemia. She apparently had an episode of dizziness in September 2022 and presented to the hospital and the possibility of stroke was raised. Her evaluation did not reveal evidence of acute cerebrovascular disease. Her head MRI revealed diffuse cerebral atrophy and moderate bilateral periventricular and subcortical white matter chronic small vessel ischemic disease. Records indicate a prior history of stroke however the patient is unclear regarding details of specific symptoms. Citalopram was not of benefit for her depression and was discontinued. Sertraline was not well- tolerated. She had seen a counselor for her depression. She now denies having depression and is no longer seeing a counselor. She has not had symptoms suggestive of recurrent cerebrovascular ischemia. Mini-Mental status exam score was 29/30 in January 2023. In February 2024, she had a transient period of feeling of knocking sensation in the head that occurred at night; this has resolved. 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 An old left basal ganglia infarct was noted. Mild diffuse age-related cerebral atrophy is noted. Mild to moderate bilateral periventricular and subcortical white matter chronic small vessel ischemic disease is noted. Physical Exam: Neuro: The patient is awake; she is mildly bradyphrenic; she is oriented to day of the week; she is able to subtract 7 from 100; she is able to spell world backwards Neck: No bruits Heart: Regular rhythm and rate Supplemental Info ESR (11/02/2018): Normal Head MRI (02/20/2020): COMPARISON: 01/05/2017 FINDINGS: There is mild cerebral atrophy with widening of the extra-axial spaces and ventricular dilatation. There are multiple white matter hyperintensities, distributed throughout the deep white matter tracts of the cerebral hemispheres, consistent with moderate chronic white matter ischemic changes. Normal bilateral basal ganglia. Normal thalami. There is no extra-axial fluid accumulation. Normal flow voids within the major intracranial circulation suggesting patency by spin echo criteria. Normal sella turcica, pituitary gland, infundibular stalk, optic chiasm and hypothalamus. Normal tectal plate and pineal gland. Normal midbrain, sonya and medulla. Normal cerebellum. Normal basal cisterns. IMPRESSION: No acute intracranial abnormality. Moderate chronic microvascular ischemic changes. Select images were reviewed on 02/15/2023. Moderate diffuse cerebral atrophy is noted. Moderate bilateral periventricular and subcortical white matter chronic small vessel ischemic disease is noted. Cardiac echo (09/26/2020): The estimated ejection fraction is 65 %. Normal diastology for age. Trivial mitral valve insufficiency. Mild (1+) aortic valve insufficiency. Iron, B12, vitamin D (05/13/2022): Normal. Magnesium (05/22/2022): Normal Head CT (06/18/2022): BRAIN: Chronic lacunar infarct in left thalamus and left basal ganglia, similar compared to the prior.. VENTRICLES: (more content not included)... Normal [facility] Carotid Duplex Ultrasoundon 04-04-2024 Carotid Duplex Ultrasound [facility] [address] [facility] [place] [address] Carotid Duplex Ultrasound 04/04/24 1249 MR#: [id number] Acct: [id number] Name: LILLIANA HUBER Rep #: [id number] : 1945 78 From: Jakub Godinez MD Attending Dr: Dr. Bella Irving MD Status: REG CLI Ordering Dr: Bella Irving MD Date: 04/04/24 Location: [facility] Sex: F C Admitted: Reason For Study: Atherosclerosis / Ringing in ears Rt. Velocities/BP Lt. Velocities/BP Prox CCA 40.1/9.3 cm/sec. Prox CCA 40.0/8.6 cm/sec. Mid CCA 52.3/10.6 cm/sec. Mid CCA 57.0/12.0 cm/sec. Dist CCA 60.9/10.6 cm/sec. Dist CCA 55.9/8.7 cm/sec. Prox ICA 63.4/10.6 cm/sec. Prox ICA 39.5/13.1 cm/sec. Mid ICA 65.8/16.7 cm/sec. Mid ICA 55.9/15.3 cm/sec. Dist ICA 59.7/16.7 cm/sec. Dist ICA 54.7/14.5 cm/sec. Rt. ICA/CCA = 1.3. Lt. ICA/CCA = 1.0. Prox ECA 79.9/4.3 cm/sec. Prox ECA 77.9/6.5 cm/sec. Rt. Vert. 41.5/10.3 cm/sec. Lt. Vert. 24.6/2.5 cm/sec. Right Extracranial There is heterogeneous, irregular atherosclerotic plaque noted in the right common carotid artery. There is heterogeneous, irregular atherosclerotic plaque noted in the right internal carotid artery. There is intimal thickening but no significant atherosclerotic plaque noted in the right external carotid artery. Antegrade flow is noted in the right vertebral artery. Left Extracranial There is homogeneous, smooth atherosclerotic plaque noted in the left common carotid artery. There is heterogeneous, irregular atherosclerotic plaque noted in the left internal carotid artery. There is heterogeneous, irregular atherosclerotic plaque noted in the left external carotid artery. Antegrade flow is noted in the left vertebral artery. Procedure Carotid Duplex [id number]. This is a Carotid Duplex examination using B-mode, color flow and specral Doppler. The exam was diagnostic. Exam performed in department. VL/Carotid Duplex Ultrasound Interpretation Summary Mild (<50%) stenosis right extracranial internal carotid. Mild (<50%) stenosis left extracranial internal carotid. Patent and antegrade vertebrals bilaterally. Ordering Physician: Bella Irving Referring Physician: Elis Cardenas Performed By: Josh Hinton, T 04/04/24 064 Date Jakub Godinez MD CC: Dr. Bella Irving MD; Dr. Elis Cardenas DO Date Dictated: 04/04/24 1249 Date Transcribed: 04/04/24 171 Enamel Dipper: Signed Normal [facility] Echo Completeon 04-04-2024 Echo Complete [facility] [place] [address] Echo Complete 04/04/24 1353 MR#: [id number] Acct: [id number] Name: LILLIANA HUBER Rep #: [id number] : 1945 78 From: Bella Irving MD Attending Dr: Dr. Bella Irving MD Status: REG CLI Ordering Dr: Bella Irving MD Date: 04/04/24 Location: [facility] Sex: F C Admitted: Reason For Study: AORTIC VALVE INSUFFICIENCY Procedure This was a 2D Doppler, Color Flow transthoracic echocardiogram. Exam performed in department. Left Ventricle Mild concentric left ventricular hypertrophy. Normal LV size. The left ventricular ejection fraction is 65 %. Stage 1 diastolic dysfunction. Right Ventricle Normal right ventricle. Atria The left atrium is mildly enlarged. Normal right atrium. Mitral Valve Mild mitral annular calcification. Mild (1+) mitral valve insufficiency. Tricuspid Valve Mild tricuspid valve insufficiency. Normal pulmonary artery pressure. Aortic Valve Aortic valve sclerosis without stenosis. Mild aortic valve regurgitation. Pulmonic Valve The pulmonic valve is not well visualized. Trivial pulmonic valve insufficiency. Great Vessels Normal sized aortic root. Pericardium/Pleural No pericardial effusion. MMode/2D Measurements Calculations LVIDd: 5.0 cm IVSd: 1.2 cm Ao root diam: 3.1 cm LVIDs: 2.9 cm LVPWd: 1.2 cm RVDd: 3.0 cm FS: 41.5 % _ LAV(MOD-bp): 31.4 ml LVAd ap4: 28.5 cm2 SV(MOD-sp4): 57.9 ml LAV(MOD-bp) Indexed: 17.7 ml/m2 LVLd ap4: 7.6 cm SI(MOD-sp4): 32.5 ml/m2 LAV(MOD-sp2): 29.8 ml EDV(MOD-sp4): 88.1 ml LAV(MOD-sp4): 34.5 ml EDV(sp4-el): 90.5 ml LVAs ap4: 15.4 cm2 LVLs ap4: 6.5 cm ESV(MOD-sp4): 30.2 ml ESV(sp4-el): 30.8 ml EF(MOD-sp4): 65.7 % EF(sp4-el): 66.0 % _ SV(sp4-el): 59.7 ml LA A4 area: 15.2 cm2 LA dimension(2D): 3.5 cm _ RA A4 area: 12.5 cm2 TAPSE: 1.9 cm Time Measurements MV dec time: 0.32 sec Doppler Measurements Calculations MV E max jw: 66.0 cm/sec Lat Peak E' Jw: 6.4 cm/sec Med Peak E' Jw: 4.4 cm/sec MV A max jw: 80.1 cm/sec E/E' lat: 10.3 E/E' med: 15.1 MV E/A: 0.82 _ Ao V2 max: 138.2 cm/sec AI max jw: 368.5 cm/sec LV V1 max: 97.6 cm/sec Ao max P.6 mmHg AI max P.3 mmHg LV V1 max P.8 mmHg AI dec slope: 213.7 cm/sec2 AI P1/2t: 504.9 msec _ PA V2 max: 88.3 cm/sec TR max jw: 216.5 cm/sec TR max P.7 mmHg ECHO/Echo Complete Interpretation Summary Mild concentric left ventricular hypertrophy. The left ventricular ejection fraction is 65 %. Stage 1 diastolic dysfunction. Mild mitral annular calcification. Mild (1+) mitral valve insufficiency. Mild tricuspid valve insufficiency. Aortic valve sclerosis without stenosis. Mild aortic valve regurgitation. Ordering Physician: Bella Irving Referring Physician: ELIS CARDENAS Performed By: Bibi Huang RDCS 04/04/24 1525 Date Bella Irving MD CC: Dr. Bella Irving MD; Dr. Elis Cardenas, Date Dictated: 04/04/24 1353 Date Transcribed: 04/04/24 1522 Enamel Dipper: [facility] Brain/Head W/WO Contraston 1 05-21-2023 Brain/Head W/WO Contrast [facility] Imaging Services [address] [place] [address] Brain/Head W/WO Contrast MR#: [id number] Acct: [id number] Name: LILLIANA HUBER Rep #: [id number] : 1945 F 78 From: Vin Parrish MD PCP: Dr. Elis Cardenas, DO Status: REG CLI Study: Brain/Head W/WO Contrast Date of Exam: 4 Exam# [id number] Ordering Dr: Bella Irving MD [id number] INDICATION: Knocking sensation in head EXAMINATION: CT BRAIN - CT Head or Brain WO/W Contrast Injection TECHNIQUE: Serial CT axial images were obtained of the head without intravenous contrast. A radiation dose optimization technique was used for this scan. COMPARISON: 05/29/[address] ____ Findings: Serial CT axial images of the head both with and without intravenous contrast. IV contrast: 100 cc Isovue-300 IV. BRAIN PARENCHYMA: Diffuse periventricular hypoattenuation likely chronic white matter ischemic changes. Mild diffuse volume loss. No evidence of intraparenchymal hemorrhage or hyperattenuating extra-axial fluid collection. No abnormal enhancement. VASCULAR STRUCTURES: Atherosclerotic vascular calcifications. 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 BONES: Paranasal sinuses are clear. SCALP/REMAINING SOFT TISSUES: Unremarkable. 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 No acute intracranial hemorrhage. No abnormal enhancement. Electronically Signed: Vin Parrish MD at 7:04 EST , CC: Dr. Bella Irving MD; Dr. Elis Cardenas DO Enamel Dipper: Signed Normal [facility] CREATININE FINGERSTICKon CREATININE WB < 1.0 Normal 0.55-1.02 [facility] Comment on above: Performed By: #### L 300.3900, L500.2500, L501.4021, L300.4310, L100.0100 #### [facility] [address] [place], [place], [id number] EGFR WB > 60.0000 Normal >60 [facility] Comment on above: Performed By: #### L 300.3900, L500.2500, L501.4021, L300.4310, L100.0100 #### [facility] [address] [place], [place], [id number] Cardiology Visit Reporton Cardiology Visit Report [facility] [address] [place], [place] [address] OFFICE VISIT Date of Service: 03/13/24 MR#: [id number] Acct: [id number] Name: LILLIANA HUBER Rep #: [id number] : 1945 Provider: Dr. Bella Irving MD Age/Sex: 78/F [place] [facility] [place] Signed HPI HPI History of Present Illness Details: This lady with history of coronary artery disease and mild to moderate aortic valve regurgitation is here for follow-up visit. Denies any chest pains or shortness of breath. No palpitations. No orthopnea or PND. No ankle edema. Per patient, she has knocking sensation in her head when she lays down to sleep. Denies any headaches. 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: No Accompanied by: Self Is patient in pain?: No Allergies Sulfa (Sulfonamide Antibiotics) Allergy (Intermediate, Verified 03/13/24 13:38) Rash pepper (genus Capsicum) Allergy (Verified 03/13/24 13:38) Swelling adhesive tape Adverse Reaction (Intermediate, Verified 03/13/24 13:38) Rash Penicillins Adverse Reaction (Unknown, Verified 03/13/24 13:38) Rash Medications ???Medication ???Instructions ???Recorded ???Confirmed ???Type B-complex with vitamin C 1 tab PO DAILY 05/21/22 03/13/24 History ascorbic acid (vitamin C) 500 mg 500 mg PO DAILY 05/21/22 03/13/24 History tablet (Vitamin C) calcium ER 600 mg (as carb,cit)-D3 2 tab PO DAILY 05/21/22 03/13/24 History 12.5 mcg (500 unit) tablet, ext.rel (Citracal-D3 Slow Release) cholecalciferol (vitamin D3) 125 125 mcg PO DAILY 05/21/22 03/13/24 History mcg (5,000 unit) tablet (Vitamin D3) garlic 1,000 mg capsule 1,000 mg PO DAILY 05/21/22 03/13/24 History lysine 1,000 mg tablet 1,000 mg PO DAILY 05/21/22 03/13/24 History turmeric root extract 500 mg 500 mg PO DAILY 05/21/22 03/13/24 History capsule zinc lozenges 15 mg 15 mg PO DAILY 05/21/22 03/13/24 History aspirin 81 mg tablet,delayed 81 mg PO DAILY@0800 #90 tabs 03/13/23 03/13/24 Rx release Handicap Placard #1 ea 04/23/23 03/13/24 Rx levothyroxine 137 mcg tablet 137 mcg PO DAILY 04/23/23 03/13/24 History amlodipine 5 mg tablet 5 mg PO DAILY #90 tabs 10/11/23 03/13/24 Rx atenolol 25 mg tablet 25 mg PO DAILY #90 tabs 10/11/23 03/13/24 Rx atorvastatin 20 mg tablet 20 mg PO QHS #90 tabs 10/11/23 03/13/24 Rx clopidogrel 75 mg tablet 75 mg PO DAILY #90 tabs 10/11/23 03/13/24 Rx lisinopril 20 mg tablet 20 mg PO DAILY #90 tabs 10/11/23 03/13/24 Rx Ejection fraction %: 60 Have you fallen in the past year?: No PFSH Medical History (Updated 02/02/24 @ 11:[address] Royal Martinez MD) Coronary artery disease Hypertension Dyslipidemia Mild cognitive impairment Ischemic cardiomyopathy Arteriosclerotic cardiovascular disease Hearing loss, left Chest pain Stroke/cerebrovascul ar accident Compression neuropathy of genitofemoral nerve Stress incontinence Wears hearing aid Wears glasses Post-menopausal Depression Thyroid disease Arthritis High cholesterol Non-smoker Leg cramps History of stress test History of echocardiogram Uterovaginal prolapse, incomplete TIA (transient ischemic attack) History of stroke Cancer GERD (gastroesophageal reflux disease) Menieres disease Corrales's palsy Aphthous ulcer of mouth Hypothyroidism Hyperlipidemia Benign essential hypertension Surgical History Stented coronary artery (05/12/23) Status post hysterectomy with oophorectomy Hx of surgical procedure H/O tubal ligation H/O dilation and curettage H/O breast biopsy Hx of colonoscopy History of thyroidectomy H/O hernia repair Family History Mother Heart disease Social History Smoking Status: Never smoker alcohol intake: never substance use type: does not use caffeine: Yes Type: coffee Number of servings: 1 seatbelt use: always do you feel safe at home: Yes additional social history: - [place] ROS Const Const: Negative for fatigue, weakness, headache(s) or weight gain ENT ENT: Negative for headache(s), dizziness, Nosebleed/epistaxis or balance problems Cardio Chest Pain: No Palpitations: No Edema: None Muscle aches with walking: None Resp Respiratory: Negative for SOB with activity, SOB at rest or SOB orthopnea SOB lying down GI GI: Negative nausea, vomiting or heartburn Musc Musc: Negative for muscle aches/ myalgia, muscle weakness, joint pain or balanc (more content not included)... Normal [facility] SCRN MAMM (CAD)W/NICA BILATo n 01-17-2024 SCRN MAMM (CAD)W/NICA BILAT [facility] Imaging Services [address] [place], [place] [address] SCRN MAMM (CAD)W/NICA BILAT MR#: [id number] Acct: [id number] Name: LILLIANA HUBER Rep #: [id number] : 1945 F 78 From: Matthias hills MD PCP: Dr. Elis Cardenas DO Status: REG CLI Study: SCRN MAMM (CAD)W/NICA BILAT Date of Exam: 12/26 07/17 Exam# [id number] Ordering Dr: Elis Cardenas DO [id number] MAMMOGRAPHY - BILATERAL SCREENING REASON FOR EXAM: Female, 78 years old. Routine annual screening examination. PERTINENT HISTORY: Aunt with breast cancer. History of remote right stereotactic breast biopsy. TECHNIQUE: Digital bilateral breast nica (3D mammographic acquisition) in the CC and MLO projections. 2-D mediolateral oblique (MLO) and craniocaudad (CC) views of both breasts were obtained. CAD: Full Field Digital Mammography with Computer Added Detection was performed. COMPARISON: Comparison is made with prior study dated January 15, 2023 and January 13, 2022. FINDINGS: Breast Composition: There are scattered areas of fibroglandular density. There are no dominant masses or suspicious calcifications. Stable bilateral fat-containing axillary lymph nodes. A tissue clip marker is seen within the central lateral aspect of the right No other significant abnormalities are identified. There has been no significant change since the prior study. BI/SCRN MAMM (CAD)W/NICA BILAT IMPRESSION: Stable bilateral screening mammogram. Yearly follow-up mammogram recommended. (A) ASSESSMENT CATEGORY: BIRADS Category 2: Benign. A letter regarding these results will be sent to the patient by the facility within 30 days. Approximately 10% of breast cancers are not detected by mammography. A normal mammogram should not delay biopsy of a clinically suspicious abnormality. [id number] Electronically Signed: Matthias Holland MD at 12:23 EDT , CC: Dr. Elis Cardenas, DO [place] Dipper: Signed Normal [facility] Basophil percentageOrdered B y: Bella Irving on 07-09-2023 Cholesterol [Mass/Vol] 249 mg/dL <200 [facility] Comment on above: <200 mg/dL Desirable 200-240 mg/dL Borderline >240 mg/dL High Risk Triglyceride [Mass/Vol] 317 mg/dL <199 [facility] Comment on above: The drugs N-Acetylcy steine and Metamizole may falsely depress this assay.Serum Triglycerides Reference Interval Normal <150 mg/dL Borderline high 150 - 199 mg/dL High 200 - 499 mg/dL Very High > or = 500 mg/dL Laboratory - Chemistry and C hemistry - challengeOrdered By: Bella Irving on 07-09-2023 ALT [Catalytic activity/Vol] 29 U/L 13-56 [facility] Cholesterol in HDL [Mass/Vol] 45 mg/dL >40 [facility] Comment on above: The drugs N-Acetylcy steine and Metamizole may falsely depress this assay. Reference Range HDL <40 mg/dL Low HDL Cholesterol HDL >or= 60 mg/dL High HDL Cholesterol Cholesterol in LDL [Mass/Vol] 141 mg/dL 0-130 [facility] CK [Catalytic activity/Vol] 43 U/L 26-192 [facility] No Panel InformationOrdered By: Bella Irving on 07-09-2023 VLDL Cholesterol 63 mg/dL 5-40 [facility] Thin prep Papanicolaou smear with manual screeningOrdered By: Bella Irving on 07-09-2023 Thin prep Papanicolaou smear with manual screening 23 U/L 15-37 [facility] Basophil percentageOrdered B y: Kendal Hoffmann on 05-13-2023 Bilirubin [Mass/Vol] 0.70 mg/dL 0.20-1.00 [facility] Comment on above: For patients on eltr ombopag therapy, use of Dimension [place] TBIL is not recommended. Chloride [Moles/Vol] 110 mmol/L 98-107 [facility] Glucose [Mass/Vol] 102 mg/dL 74-106 [facility] Comment on above: Fasting Glucose resu lt from 100 to 125 mg/dL suggests IMPAIRED HOMEOSTASIS per A.D.A. criteria. Hemoglobin (Bld) [Mass/Vol] 12.3 g/dL 12.0-15.0 [facility] Potassium [Moles/Vol] 3.9 mmol/L 3.5-5.1 [facility] Protein [Mass/Vol] 6.2 g/dL 6.4-8.2 [facility] Sodium [Moles/Vol] 140 mmol/L 136-145 [facility] WBC (Bld) [#/Vol] 7.4 10*3/uL 4.4-11.0 [facility] Determination of erythrocyte mean corpuscular volume (MCV)Ordered By: Kendal Hoffmann on 05-13-2023 MCV (RBC) [Entitic vol] 90.8 fL 81-99 [facility] Erythrocyte distribution wid th ratioOrdered By: [facility] Shun on 05-13-2023 Erythrocyte distribution width (RBC) [Ratio] 13.1 % 11.6-14.6 [facility] Erythrocyte distribution wid th standard deviationOrdered By: [facility]2023 Erythrocyte distribution width (RBC) [Entitic vol] 43.2 fL 35.1-43.9 [facility] Hematocrit Auto (Bld) [Volum e fraction]Ordered By: [facility] Shun on 05-13-2023 Hematocrit (Bld) [Volume fraction] 36.7 % 37-47 [facility] - Chemistry and C hemistry - challengeOrdered By: Maurygeorgette Hoffmann on 05-13-2023 Albumin/Globulin [Mass ratio] 1.2 {ratio} 0.9-2.4 [facility] ALP [Catalytic activity/Vol] 88 U/L 45-117 [facility] ALT [Catalytic activity/Vol] 22 U/L 13-56 [facility] CO2 [Moles/Vol] 22.0 mmol/L 21.0-32.0 [facility] Globulin (S) [Mass/Vol] 2.8 g/dL 2.2-4.2 [facility] Urea nitrogen/Creatinine [Mass ratio] 20.0 mg/mg 10-20 [facility] - Hematology and Cell countsOrdered By: Maurygeorgette Hoffmann on 05-13-2023 MCH (RBC) [Entitic mass] 30.4 pg 27.0-32.0 [facility] MCHC (RBC) [Mass/Vol] 33.5 g/dL 32-36 [facility] Platelets (Bld) [#/Vol] 192 10*3/uL 150-450 [facility] No Panel InformationOrdered By: Kendal Hoffmann on 05-13-2023 Estimated Creatinine Clearance Calc 55.40 ml/min [facility] Estimated GFR (MDRD) Amer 96 mL/min >60 [facility] Comment on above: GFR Calc Estimated GFR (MDRD) Non-Af Amer 79 mL/min >60 [facility] Comment on above: Non- GFR Calc Platelet mean volume Jan-Ec ker (Bld) [Entitic vol]Ordered By: Kendal Hoffmann on 05-13-2023 Platelet mean volume (Bld) [Entitic vol] 8.9 fL 6.2-12.0 [facility] RBC Auto (Bld) [#/Vol]Ordere d By: Kendal Hoffmann on 05-13-2023 RBC (Bld) [#/Vol] 4.04 10*6/uL 4.2-5.4 [facility] Serum or plasma calcium idrsi urement (mass/volume)Ordered By: Kendal Hoffmann on 05-13-2023 Calcium [Mass/Vol] 8.4 mg/dL 8.5-10.1 [facility] Serum or plasma creatinine m easurement (mass/volume)Ordered By: Kendal Hoffmann on 05-13-2023 Creatinine [Mass/Vol] 0.75 mg/dL 0.55-1.02 [facility] Comment on above: The validity of the calculated GFR & GFRAA in patients over 70 years has not been determined. Clinical correlation is essential. Serum or plasma urea nitroge n measurement (mass/volume)Ordered By: [facility] Hoff[facility] on 05-13-2023 Urea nitrogen [Mass/Vol] 15 mg/dL 7-18 [facility] Thin prep Papanicolaou smear with manual screeningOrdered By: [facility] Shun on 05-13-2023 Thin prep Papanicolaou smear with manual screening 3.4 g/dL 3.2-5.0 [facility] Thin prep Papanicolaou smear with manual screening 26 U/L 15-37 [facility] Thin prep Papanicolaou smear with manual screening 8 5-15 [facility] No Panel InformationOrdered By: Kendal Hoffmann on 05-12-2023 Activated Clotting Time 249 sec 74-137 [facility] Absolute lymphocyte countOrd ered By: Aiden Galan on 04-23-2023 Lymphocytes Auto (Unsp spec) [#/Vol] 1.82 10*3/uL 0.83-4.51 [facility] Basophil percentageOrdered B y: Aiden Galan on 04-23-2023 Basophils/100 WBC (Bld) 1.1 % 0-1 [facility] Chloride [Moles/Vol] 108 mmol/L 98-107 [facility] Eosinophils/100 WBC (Bld) 2.5 % 0-5 [facility] Glucose [Mass/Vol] 97 mg/dL 74-106 [facility] Neutrophils (Bld) [#/Vol] 3.8 10*3/uL 2.0-7.7 [facility] Neutrophils/100 WBC (Bld) 59.9 % 47-70 [facility] Potassium [Moles/Vol] 4.4 mmol/L 3.5-5.1 [facility] Sodium [Moles/Vol] 139 mmol/L 136-145 [facility] WBC (Bld) [#/Vol] 6.4 10*3/uL 4.4-11.0 [facility] Blood erythrocytes count (nu mber/volume)Ordered By: Aiden Galan on 04-23-2023 RBC (Bld) [#/Vol] 4.17 10*6/uL 4.2-5.4 [facility] Blood hemoglobin measurement (mass/volume)Ordered By: Aiden Galan on 04-23-2023 Hemoglobin (Bld) [Mass/Vol] 12.6 g/dL 12.0-15.0 [facility] Blood lymphocytes/100 leukoc ytesOrdered By: Aiden Galan on 04-23-2023 Lymphocytes/100 WBC (Bld) 28.7 % 19-41 [facility] Blood monocytes/100 leukocyt esOrdered By: Aiden Galan on 04-23-2023 Monocytes/100 WBC (Bld) 7.2 % 0-10 [facility] Blood platelet mean volumeOr dered By: Aiden Galan on 04-23-2023 Platelet mean volume (Bld) [Entitic vol] 9.0 fL 6.2-12.0 [facility] Determination of erythrocyte mean corpuscular volume (MCV)Ordered By: Aiden Galan on 04-23-2023 MCV (RBC) [Entitic vol] 92.3 fL 81-99 [facility] Hematocrit Auto (Bld) [Volum e fraction]Ordered By: Aiden Galan on 04-23-2023 Hematocrit (Bld) [Volume fraction] 38.5 % 37-47 [facility] - Chemistry and C hemistry - challengeOrdered By: Aiden Galan on 04-23-2023 CO2 [Moles/Vol] 27.0 mmol/L 21.0-32.0 [facility] Urea nitrogen/Creatinine [Mass ratio] 19.1 mg/mg 10-20 [facility] - Hematology and Cell countsOrdered By: Aiden Galan on 04-23-2023 Erythrocyte distribution width (RBC) [Entitic vol] 46.5 fL 35.1-43.9 [facility] Erythrocyte distribution width (RBC) [Ratio] 13.6 % 11.6-14.6 [facility] Immature granulocytes/100 WBC (Bld) 0.600 % 0.0-0.9 [facility] Comment on above: IG% - Immature Granu locytes (promyelocytes, myelocytes and metamyelocytes) > 1% indicates that a LEFT SHIFT is Present. MCH (RBC) [Entitic mass] 30.2 pg 27.0-32.0 [facility] Nucleated RBC/100 WBC (Bld) [Ratio] 0 % 0-5 [facility] MCHC Auto (RBC) [Mass/Vol]Or dered By: Aiden Galan on 04-23-2023 MCHC (RBC) [Mass/Vol] 32.7 g/dL 32-36 [facility] No Panel InformationOrdered By: Aiden Galan on 04-23-2023 Estimated GFR (MDRD) Amer 84 mL/min >60 [facility] Comment on above: GFR Calc Estimated GFR (MDRD) Non-Af Amer 70 mL/min >60 [facility] Comment on above: Non- GFR Calc Platelets bldOrdered By: Chito Galan on 04-23-2023 Platelets (Bld) [#/Vol] 272 10*3/uL 150-450 [facility] Serum or plasma calcium idris urement (mass/volume)Ordered By: Aiden Galan on 04-23-2023 Calcium [Mass/Vol] 9.3 mg/dL 8.5-10.1 [facility] Serum or plasma creatinine m easurement (mass/volume)Ordered By: Aiden Galan on 04-23-2023 Creatinine [Mass/Vol] 0.84 mg/dL 0.55-1.02 [facility] Comment on above: The validity of the calculated GFR & GFRAA in patients over 70 years has not been determined. Clinical correlation is essential. Serum or plasma urea nitroge n measurement (mass/volume)Ordered By: Aiden Galan on 04-23-2023 Urea nitrogen [Mass/Vol] 16 mg/dL -18 [facility] Thin prep Papanicolaou smear with manual screeningOrdered By: Aiden Galan on 04-23-2023 Thin prep Papanicolaou smear with manual screening 4 5-15 [facility] Basophil percentageOrdered B y: Kendal Hoffmann on 03-13-2023 Bilirubin [Mass/Vol] 0.50 mg/dL 0.20-1.00 [facility] Comment on above: For patients on eltr ombopag therapy, use of Dimension [place] TBIL is not recommended. Chloride [Moles/Vol] 112 mmol/L 98-107 [facility] Glucose [Mass/Vol] 98 mg/dL 74-106 [facility] Potassium [Moles/Vol] 3.7 mmol/L 3.5-5.1 [facility] Protein [Mass/Vol] 6.3 g/dL 6.4-8.2 [facility] Sodium [Moles/Vol] 139 mmol/L 136-145 [facility] WBC (Bld) [#/Vol] 7.4 10*3/uL 4.4-11.0 [facility] Blood erythrocytes count (nu mber/volume)Ordered By: [facility] on 03-13-2023 RBC (Bld) [#/Vol] 4.19 10*6/uL 4.2-5.4 [facility] Blood hemoglobin measurement (mass/volume)Ordered By: [facility] on 03-13-2023 Hemoglobin (Bld) [Mass/Vol] 13.1 g/dL 12.0-15.0 [facility] Blood platelet mean volumeOr dered By: [facility] on 03-13-2023 Platelet mean volume (Bld) [Entitic vol] 9.0 fL 6.2-12.0 [facility] Determination of erythrocyte mean corpuscular volume (MCV)Ordered By: [facility] on 03-13-2023 MCV (RBC) [Entitic vol] 90.2 fL 81-99 [facility] Hematocrit Auto (Bld) [Volum e fraction]Ordered By: [facility] on 03-13-2023 Hematocrit (Bld) [Volume fraction] 37.8 % 37-47 [facility] - Chemistry and C hemistry - challengeOrdered By: [facility] on 03-13-2023 ALP [Catalytic activity/Vol] 81 U/L 45-117 [facility] ALT [Catalytic activity/Vol] 23 U/L 13-56 [facility] CO2 [Moles/Vol] 21.0 mmol/L 21.0-32.0 [facility] Globulin (S) [Mass/Vol] 3.1 g/dL 2.2-4.2 [facility] Urea nitrogen/Creatinine [Mass ratio] 13.8 mg/mg 10-20 [facility] - Hematology and Cell countsOrdered By: Kendal Hoffmann on 03-13-2023 Erythrocyte distribution width (RBC) [Entitic vol] 44.0 fL 35.1-43.9 [facility] Erythrocyte distribution width (RBC) [Ratio] 13.4 % 11.6-14.6 [facility] MCH (RBC) [Entitic mass] 31.3 pg 27.0-32.0 [facility] MCHC Auto (RBC) [Mass/Vol]Or dered By: Kendal Hoffmann on 03-13-2023 MCHC (RBC) [Mass/Vol] 34.7 g/dL 32-36 [facility] Comment on above: Delta: 32.6 on 03/12 No Panel InformationOrdered By: Kendal Hoffmann on 03-13-2023 Estimated Creatinine Clearance Calc 45.10 ml/min [facility] Estimated GFR (MDRD) Amer 89 mL/min >60 [facility] Comment on above: GFR Calc Estimated GFR (MDRD) Non-Af Amer 74 mL/min >60 [facility] Comment on above: Non- GFR Calc Platelets bldOrdered By: Maury Hoffmann on 03-13-2023 Platelets (Bld) [#/Vol] 205 10*3/uL 150-450 [facility] Serum or plasma albumin idris urement (mass/volume)Ordered By: Kendal Hoffmann on 03-13-2023 Albumin [Mass/Vol] 3.2 g/dL 3.2-5.0 [facility] Serum or plasma albumin/glob ulin mass ratioOrdered By: Kendal Hoffmann on 03-13-2023 Albumin/Globulin [Mass ratio] 1.0 {ratio} 0.9-2.4 [facility] Serum or plasma calcium idris urement (mass/volume)Ordered By: Kendal Hoffmann on 03-13-2023 Calcium [Mass/Vol] 8.3 mg/dL 8.5-10.1 [facility] Serum or plasma creatinine m easurement (mass/volume)Ordered By: Kendal Hoffmann on 03-13-2023 Creatinine [Mass/Vol] 0.80 mg/dL 0.55-1.02 [facility] Comment on above: The validity of the calculated GFR & GFRAA in patients over 70 years has not been determined. Clinical correlation is essential. Serum or plasma urea nitroge n measurement (mass/volume)Ordered By: Kendal Hoffmann on 03-13-2023 Urea nitrogen [Mass/Vol] 11 mg/dL -18 [facility] Thin prep Papanicolaou smear with manual screeningOrdered By: Kendal Hoffmann on 03-13-2023 Thin prep Papanicolaou smear with manual screening 46 U/L 15- [facility] Thin prep Papanicolaou smear with manual screening 6 5-15 [facility] Absolute lymphocyte countOrd ered By: ED PROVIDER on 03-12-2023 Lymphocytes Auto (Unsp spec) [#/Vol] 1.92 10*3/uL 0.83-4.51 [facility] Basophil percentageOrdered B y: Lynne Tabares on 03-12-2023 Cholesterol [Mass/Vol] 132 mg/dL <200 [facility] Comment on above: <200 mg/dL Desirable 200-240 mg/dL Borderline >240 mg/dL High Risk Triglyceride [Mass/Vol] 101 mg/dL <199 [facility] Comment on above: The drugs N-Acetylcy steine and Metamizole may falsely depress this assay.Serum Triglycerides Reference Interval Normal <150 mg/dL Borderline high 150 - 199 mg/dL High 200 - 499 mg/dL Very High > or = 500 mg/dL Basophil percentageOrdered B y: ED PROVIDER on 03-12-2023 Basophils/100 WBC (Bld) 1.4 % 0-1 [facility] Chloride [Moles/Vol] 109 mmol/L 98-107 [facility] Eosinophils/100 WBC (Bld) 2.3 % 0-5 [facility] Glucose [Mass/Vol] 124 mg/dL 74-106 [facility] Comment on above: Fasting Glucose resu lt from 100 to 125 mg/dL suggests IMPAIRED HOMEOSTASIS per A.D.A. criteria. Neutrophils (Bld) [#/Vol] 4.3 10*3/uL 2.0-7.7 [facility] Neutrophils/100 WBC (Bld) 60.3 % 47-70 [facility] Potassium [Moles/Vol] 4.0 mmol/L 3.5-5.1 [facility] Comment on above: Slight Hemolysis, Re sult may be falsely increased. Sodium [Moles/Vol] 140 mmol/L 136-145 [facility] WBC (Bld) [#/Vol] 7.1 10*3/uL 4.4-11.0 [facility] Blood erythrocytes count (nu mber/volume)Ordered By: ED PROVIDER on 03-12-2023 RBC (Bld) [#/Vol] 4.42 10*6/uL 4.2-5.4 [facility] Blood hemoglobin measurement (mass/volume)Ordered By: ED PROVIDER on 03-12-2023 Hemoglobin (Bld) [Mass/Vol] 13.2 g/dL 12.0-15.0 [facility] Blood lymphocytes/100 leukoc ytesOrdered By: ED PROVIDER on 03-12-2023 Lymphocytes/100 WBC (Bld) 27.0 % 19-41 [facility] Blood monocytes/100 leukocyt esOrdered By: ED PROVIDER on 03-12-2023 Monocytes/100 WBC (Bld) 8.2 % 0-10 [facility] Blood platelet mean volumeOr dered By: ED PROVIDER on 03-12-2023 Platelet mean volume (Bld) [Entitic vol] 9.1 fL 6.2-12.0 [facility] Determination of erythrocyte mean corpuscular volume (MCV)Ordered By: ED PROVIDER on 03-12-2023 MCV (RBC) [Entitic vol] 90.3 fL 81-99 [facility] Hematocrit Auto (Bld) [Volum e fraction]Ordered By: ED PROVIDER on 03-12-2023 Hematocrit (Bld) [Volume fraction] 39.9 % 37-47 [facility] INR in Blood by Coagulation assayOrdered By: Martin Wilkins on 03-12-2023 INR Coag (Bld) [Relative time] 0.9 {INR} [facility] - Chemistry and C hemistry - challengeOrdered By: ED PROVIDER on 03-12-2023 CO2 [Moles/Vol] 23.0 mmol/L 21.0-32.0 [facility] Urea nitrogen/Creatinine [Mass ratio] 26.5 mg/mg 10-20 [facility] - CoagulationOrde red By: Martin Wilkins on 03-12-2023 aPTT Coag (Bld) [Time] 29.2 s 24.1-36.2 [facility] PT Coag (PPP) [Time] 12.0 s 11.7-14.9 [facility] [facility] - Hematology and Cell countsOrdered By: ED PROVIDER on 03-12-2023 Erythrocyte distribution width (RBC) [Entitic vol] 44.1 fL 35.1-43.9 [facility] Erythrocyte distribution width (RBC) [Ratio] 13.4 % 11.6-14.6 [facility] Immature granulocytes/100 WBC (Bld) 0.800 % 0.0-0.9 [facility] Comment on above: IG% - Immature Granu locytes (promyelocytes, myelocytes and metamyelocytes) > 1% indicates that a LEFT SHIFT is Present. MCH (RBC) [Entitic mass] 29.9 pg 27.0-32.0 [facility] Nucleated RBC/100 WBC (Bld) [Ratio] 0 % 0-5 [facility] MCHC Auto (RBC) [Mass/Vol]Or dered By: ED PROVIDER on 03-12-2023 MCHC (RBC) [Mass/Vol] 33.1 g/dL 32-36 [facility] No Panel InformationOrdered By: Alfonso Anderson on 03-12-2023 Activated Clotting Time 311 sec 74-137 [facility] No Panel InformationOrdered By: Lynne Tabares on 03-12-2023 Thyroid Stimulating Hormone (TSH) 3.89 uIU/mL 0.358-3.74 [facility] No Panel InformationOrdered By: ED PROVIDER on 03-12-2023 Troponin I High Sensitivity 400 pg/mL 3.0-54.0 [facility] Comment on above: Critical Result(s) C alled at: 03:48:01 03/12/2023 by: JOSE ARMANDO Tidwell RN ER. Results read back by same. Please Note: New Test Units and Gender Specific Reference Ranges. For more information see Policy Stat Procedure [place] High Sensitivity Troponin (TNIH) and attachments. Estimated Creatinine Clearance Calc 39.65 ml/min [facility] Estimated GFR (MDRD) Amer 77 mL/min >60 [facility] Comment on above: GFR Calc Estimated GFR (MDRD) Non-Af Amer 64 mL/min >60 [facility] Comment on above: Non- GFR Calc No Panel InformationOrdered By: Martin Wilkins on 03-12-2023 D-Dimer Quantitative (PE/DVT) 0.37 FEU/ug/m 0.27-0.49 [facility] Comment on above: NORMAL D-Dimer level (<0.50) indicates no DVT or PE. Platelets bldOrdered By: ED PROVIDER on 03-12-2023 Platelets (Bld) [#/Vol] 239 10*3/uL 150-450 [facility] Serum or plasma calcium idris urement (mass/volume)Ordered By: ED PROVIDER on 03-12-2023 Calcium [Mass/Vol] 8.9 mg/dL 8.5-10.1 [facility] Serum or plasma cholesterol in HDL measurement (mass/volume)Ordered By: Lynne Tabares on 03-12-2023 Cholesterol in HDL [Mass/Vol] 47 mg/dL >40 [facility] Comment on above: The drugs N-Acetylcy steine and Metamizole may falsely depress this assay. Reference Range HDL <40 mg/dL Low HDL Cholesterol HDL >or= 60 mg/dL High HDL Cholesterol Serum or plasma cholesterol in VLDL measurement (mass/volume)Ordered By: Lynne Tabares on 03-12-2023 Cholesterol in VLDL [Mass/Vol] 20 mg/dL 5-40 [facility] Serum or plasma creatinine m easurement (mass/volume)Ordered By: ED PROVIDER on 03-12-2023 Creatinine [Mass/Vol] 0.91 mg/dL 0.55-1.02 [facility] Comment on above: The validity of the calculated GFR & GFRAA in patients over 70 years has not been determined. Clinical correlation is essential. Serum or plasma low density lipoprotein (LDL) cholesterol measurement (mass/volume)Ordered By: Lynne Tabares on 03-12-2023 Cholesterol in LDL [Mass/Vol] 65 mg/dL 0-130 [facility] Serum or plasma urea nitroge n measurement (mass/volume)Ordered By: ED PROVIDER on 03-12-2023 Urea nitrogen [Mass/Vol] 24 mg/dL 7-18 [facility] Thin prep Papanicolaou smear with manual screeningOrdered By: ED PROVIDER on 03-12-2023 Thin prep Papanicolaou smear with manual screening 8 -15 [facility] Absolute lymphocyte countOrd ered By: Elis Cardenas on 01-13-2023 Lymphocytes Auto (Unsp spec) [#/Vol] 1.58 10*3/uL 0.83-4.51 [facility] Basophil percentageOrdered B y: Elis Cardenas on 01-13-2023 Basophils/100 WBC (Bld) 1.6 % 0-1 [facility] Bilirubin [Mass/Vol] 0.50 mg/dL 0.20-1.00 [facility] Comment on above: For patients on eltr ombopag therapy, use of Dimension [place] TBIL is not recommended. Chloride [Moles/Vol] 109 mmol/L 98-107 [facility] Cholesterol [Mass/Vol] 262 mg/dL <200 [facility] Comment on above: <200 mg/dL Desirable 200-240 mg/dL Borderline >240 mg/dL High Risk Eosinophils/100 WBC (Bld) 3.9 % 0-5 [facility] Glucose [Mass/Vol] 102 mg/dL 74-106 [facility] Comment on above: Fasting Glucose resu lt from 100 to 125 mg/dL suggests IMPAIRED HOMEOSTASIS per A.D.A. criteria. Neutrophils (Bld) [#/Vol] 3.3 10*3/uL 2.0-7.7 [facility] Neutrophils/100 WBC (Bld) 57.9 % 47-70 [facility] Potassium [Moles/Vol] 4.4 mmol/L 3.5-5.1 [facility] Protein [Mass/Vol] 6.8 g/dL 6.4-8.2 [facility] Sodium [Moles/Vol] 138 mmol/L 136-145 [facility] Triglyceride [Mass/Vol] 381 mg/dL <199 [facility] Comment on above: The drugs N-Acetylcy steine and Metamizole may falsely depress this assay.Serum Triglycerides Reference Interval Normal <150 mg/dL Borderline high 150 - 199 mg/dL High 200 - 499 mg/dL Very High > or = 500 mg/dL WBC (Bld) [#/Vol] 5.6 10*3/uL 4.4-11.0 [facility] Blood erythrocytes count (nu mber/volume)Ordered By: Elis Cardenas on 01-13-2023 RBC (Bld) [#/Vol] 4.44 10*6/uL 4.2-5.4 [facility] Blood hemoglobin measurement (mass/volume)Ordered By: Elis Cardenas on 01-13-2023 Hemoglobin (Bld) [Mass/Vol] 13.8 g/dL 12.0-15.0 [facility] Blood lymphocytes/100 leukoc ytesOrdered By: Elis Cardenas on 01-13-2023 Lymphocytes/100 WBC (Bld) 28.1 % 19-41 [facility] Blood monocytes/100 leukocyt esOrdered By: Elis Cardenas on 01-13-2023 Monocytes/100 WBC (Bld) 8.0 % 0-10 [facility] Blood platelet mean volumeOr dered By: Elis Cardenas on 01-13-2023 Platelet mean volume (Bld) [Entitic vol] 9.8 fL 6.2-12.0 [facility] Determination of erythrocyte mean corpuscular volume (MCV)Ordered By: Elis Cardenas on 01-13-2023 MCV (RBC) [Entitic vol] 91.4 fL 81-99 [facility] Hematocrit Auto (Bld) [Volum e fraction]Ordered By: Elis Cardenas on 01-13-2023 Hematocrit (Bld) [Volume fraction] 40.6 % 37-47 [facility] Laboratory - Chemistry and C hemistry - challengeOrdered By: Elis Cardenas on 01-13-2023 ALP [Catalytic activity/Vol] 75 U/L 45-117 [facility] ALT [Catalytic activity/Vol] 24 U/L 13-56 [facility] CO2 [Moles/Vol] 24.0 mmol/L 21.0-32.0 [facility] Free T4 [Mass/Vol] 1.40 ng/dL 0.76-1.46 [facility] Globulin (S) [Mass/Vol] 3.3 g/dL 2.2-4.2 [facility] Urea nitrogen/Creatinine [Mass ratio] 21.1 mg/mg - [facility] Laboratory - Hematology and Cell countsOrdered By: Elis Cardenas on 01-13-2023 Erythrocyte distribution width (RBC) [Entitic vol] 42.5 fL 35.1-43.9 [facility] Erythrocyte distribution width (RBC) [Ratio] 12.8 % 11.6-14.6 [facility] Immature granulocytes/100 WBC (Bld) 0.500 % 0.0-0.9 [facility] Comment on above: IG% - Immature Granu locytes (promyelocytes, myelocytes and metamyelocytes) > 1% indicates that a LEFT SHIFT is Present. MCH (RBC) [Entitic mass] 31.1 pg 27.0-32.0 [facility] Nucleated RBC/100 WBC (Bld) [Ratio] 0 % 0-5 [facility] MCHC Auto (RBC) [Mass/Vol]Or dered By: Elis Cardenas on 01-13-2023 MCHC (RBC) [Mass/Vol] 34.0 g/dL 32-36 [facility] No Panel InformationOrdered By: Elis Cardenas on 01-13-2023 Estimated GFR (MDRD) Amer 69 mL/min >60 [facility] Comment on above: GFR Calc Estimated GFR (MDRD) Non-Af Amer 57 mL/min >60 [facility] Comment on above: Non- GFR Calc Free Triiodothyronine (T3) pg/dL 2.3 pg/mL 2.18-3.98 [facility] Thyroid Stimulating Hormone (TSH) 3.81 uIU/mL 0.358-3.74 [facility] Platelets bldOrdered By: Camila Cardenas on 01-13-2023 Platelets (Bld) [#/Vol] 147 10*3/uL 150-450 [facility] Serum or plasma albumin idris urement (mass/volume)Ordered By: Elis Cardenas on 01-13-2023 Albumin [Mass/Vol] 3.5 g/dL 3.2-5.0 [facility] Serum or plasma albumin/glob ulin mass ratioOrdered By: Elis Cardenas on 01-13-2023 Albumin/Globulin [Mass ratio] 1.1 {ratio} 0.9-2.4 [facility] Serum or plasma calcium idris urement (mass/volume)Ordered By: Elis Cardenas on 01-13-2023 Calcium [Mass/Vol] 9.1 mg/dL 8.5-10.1 [facility] Serum or plasma cholesterol in HDL measurement (mass/volume)Ordered By: Elis Cardenas on 01-13-2023 Cholesterol in HDL [Mass/Vol] 44 mg/dL >40 [facility] Comment on above: The drugs N-Acetylcy steine and Metamizole may falsely depress this assay. Reference Range HDL <40 mg/dL Low HDL Cholesterol HDL >or= 60 mg/dL High HDL Cholesterol Serum or plasma cholesterol in VLDL measurement (mass/volume)Ordered By: Elis Cardenas on 01-13-2023 Cholesterol in VLDL [Mass/Vol] 76 mg/dL 5-40 [facility] Serum or plasma creatinine m easurement (mass/volume)Ordered By: Elis Cardenas on 01-13-2023 Creatinine [Mass/Vol] 0.99 mg/dL 0.55-1.02 [facility] Comment on above: The validity of the calculated GFR & GFRAA in patients over 70 years has not been determined. Clinical correlation is essential. Serum or plasma low density lipoprotein (LDL) cholesterol measurement (mass/volume)Ordered By: Elis Cardenas on 01-13-2023 Cholesterol in LDL [Mass/Vol] 142 mg/dL 0-130 [facility] Serum or plasma urea nitroge n measurement (mass/volume)Ordered By: Elis Cardenas on 01-13-2023 Urea nitrogen [Mass/Vol] 21 mg/dL 7-18 [facility] Thin prep Papanicolaou smear with manual screeningOrdered By: Elis Cardenas on 01-13-2023 Thin prep Papanicolaou smear with manual screening 13 U/L 15-37 [facility] Thin prep Papanicolaou smear with manual screening 5 5-15 [facility] Laboratory - Chemistry and C hemistry - challengeOrdered By: Elis Cardenas on 11-11-2022 Free T4 [Mass/Vol] 1.37 ng/dL 0.76-1.46 [facility] No Panel InformationOrdered By: Elis Cardenas on 07-19-2023 Free Triiodothyronine (T3) pg/dL 1.9 pg/mL 2.18-3.98 [facility] Thyroid Stimulating Hormone (TSH) 3.42 uIU/mL 0.358-3.74 [facility] Absolute lymphocyte countOrd ered By: Afua Anderson on 10-21-2022 Lymphocytes Auto (Unsp spec) [#/Vol] 1.85 10*3/uL 0.83-4.51 [facility] Basophil percentageOrdered B y: Afua Anderson on 10-21-2022 Basophils/100 WBC (Bld) 1.2 % 0-1 [facility] Chloride [Moles/Vol] 108 mmol/L 98-107 [facility] Eosinophils/100 WBC (Bld) 3.8 % 0-5 [facility] Glucose [Mass/Vol] 122 mg/dL 74-106 [facility] Comment on above: Fasting Glucose resu lt from 100 to 125 mg/dL suggests IMPAIRED HOMEOSTASIS per A.D.A. criteria. Neutrophils (Bld) [#/Vol] 4.0 10*3/uL 2.0-7.7 [facility] Neutrophils/100 WBC (Bld) 58.4 % 47-70 [facility] Potassium [Moles/Vol] 3.9 mmol/L 3.5-5.1 [facility] Sodium [Moles/Vol] 137 mmol/L 136-145 [facility] WBC (Bld) [#/Vol] 6.8 10*3/uL 4.4-11.0 [facility] Blood erythrocytes count (nu mber/volume)Ordered By: Afua Anderson on 10-21-2022 RBC (Bld) [#/Vol] 4.43 10*6/uL 4.2-5.4 [facility] Blood hemoglobin measurement (mass/volume)Ordered By: Afua Anderson on 10-21-2022 Hemoglobin (Bld) [Mass/Vol] 13.7 g/dL 12.0-15.0 [facility] Blood lymphocytes/100 leukoc ytesOrdered By: Afua Anderson on 10-21-2022 Lymphocytes/100 WBC (Bld) 27.2 % 19-41 [facility] Blood monocytes/100 leukocyt esOrdered By: Afua Anderson on 10-21-2022 Monocytes/100 WBC (Bld) 8.7 % 0-10 [facility] Blood platelet mean volumeOr dered By: Afua Anderson on 10-21-2022 Platelet mean volume (Bld) [Entitic vol] 9.4 fL 6.2-12.0 [facility] Determination of erythrocyte mean corpuscular volume (MCV)Ordered By: Afua Anderson on 10-21-2022 MCV (RBC) [Entitic vol] 90.1 fL 81-99 [facility] Glucose Glucometer (BldC) [M ass/Vol]Ordered By: Afua Anderson on 10-21-2022 Glucose [Mass/Vol] 123 mg/dL 74-106 [facility] Comment on above: MANAGEMENT OF PATIEN T CARE PER NURSING PROTOCOL Hematocrit Auto (Bld) [Volum e fraction]Ordered By: Afua Anderson on 10-21-2022 Hematocrit (Bld) [Volume fraction] 39.9 % 37-47 [facility] Laboratory - Chemistry and C hemistry - challengeOrdered By: Afua Anderson on 10-21-2022 CO2 [Moles/Vol] 23.0 mmol/L 21.0-32.0 [facility] Urea nitrogen/Creatinine [Mass ratio] 25.6 mg/mg 10-20 [facility] - Hematology and Cell countsOrdered By: Afua Anderson on 10-21-2022 Erythrocyte distribution width (RBC) [Entitic vol] 43.1 fL 35.1-43.9 [facility] Erythrocyte distribution width (RBC) [Ratio] 13.2 % 11.6-14.6 [facility] Immature granulocytes/100 WBC (Bld) 0.700 % 0.0-0.9 [facility] Comment on above: IG% - Immature Granu locytes (promyelocytes, myelocytes and metamyelocytes) > 1% indicates that a LEFT SHIFT is Present. MCH (RBC) [Entitic mass] 30.9 pg 27.0-32.0 [facility] Nucleated RBC/100 WBC (Bld) [Ratio] 0 % 0-5 [facility] MCHC Auto (RBC) [Mass/Vol]Or dered By: Afua Anderson on 10-21-2022 MCHC (RBC) [Mass/Vol] 34.3 g/dL 32-36 [facility] No Panel InformationOrdered By: Afua Anderson on 10-21-2022 Estimated GFR (MDRD) Amer 78 mL/min >60 [facility] Comment on above: GFR Calc Estimated GFR (MDRD) Non-Af Amer 64 mL/min >60 [facility] Comment on above: Non- GFR Calc Troponin I High Sensitivity 4 pg/mL 3.0-54.0 [facility] Comment on above: Please Note: [place] t Units and Gender Specific Reference Ranges. For more information see Policy Stat Procedure [place] High Sensitivity Troponin (TNIH) and attachments. Platelets bldOrdered By: Soni Anderson on 10-21-2022 Platelets (Bld) [#/Vol] 235 10*3/uL 150-450 [facility] Serum or plasma calcium idris urement (mass/volume)Ordered By: Afua Anderson on 10-21-2022 Calcium [Mass/Vol] 9.0 mg/dL 8.5-10.1 [facility] Serum or plasma creatinine m easurement (mass/volume)Ordered By: Afua Anedrson on 10-21-2022 Creatinine [Mass/Vol] 0.90 mg/dL 0.55-1.02 [facility] Comment on above: The validity of the calculated GFR & GFRAA in patients over 70 years has not been determined. Clinical correlation is essential. Serum or plasma urea nitroge n measurement (mass/volume)Ordered By: Afua Anderson on 10-21-2022 Urea nitrogen [Mass/Vol] 23 mg/dL 7-18 [facility] Thin prep Papanicolaou smear with manual screeningOrdered By: Afua Anderson on 10-21-2022 Thin prep Papanicolaou smear with manual screening 6 5-15 [facility] Basophil percentageOrdered B y: Dr. Rao on 05-29-2022 WBC (Bld) [#/Vol] 12.2 10*3/uL 4.4-11.0 [facility] Blood erythrocytes count (nu mber/volume)Ordered By: Dr. Rao on 05-29-2022 RBC (Bld) [#/Vol] 3.92 10*6/uL 4.2-5.4 [facility] Blood hemoglobin measurement (mass/volume)Ordered By: Dr. Rao on 05-29-2022 Hemoglobin (Bld) [Mass/Vol] 11.8 g/dL 12.0-15.0 [facility] Blood platelet mean volumeOr dered By: Dr. Rao on 05-29-2022 Platelet mean volume (Bld) [Entitic vol] 9.6 fL 6.2-12.0 [facility] Determination of erythrocyte mean corpuscular volume (MCV)Ordered By: Dr. Rao on 05-29-2022 MCV (RBC) [Entitic vol] 91.8 fL 81-99 [facility] Hematocrit Auto (Bld) [Volum e fraction]Ordered By: Dr. Rao on 05-29-2022 Hematocrit (Bld) [Volume fraction] 36.0 % 37-47 [facility] - Hematology and Cell countsOrdered By: Dr. Rao on 05-29-2022 Erythrocyte distribution width (RBC) [Entitic vol] 44.8 fL 35.1-43.9 [facility] Erythrocyte distribution width (RBC) [Ratio] 13.3 % 11.6-14.6 [facility] MCH (RBC) [Entitic mass] 30.1 pg 27.0-32.0 [facility] MCHC Auto (RBC) [Mass/Vol]Or dered By: Dr. Rao on 05-29-2022 MCHC (RBC) [Mass/Vol] 32.8 g/dL 32-36 [facility] Platelets bldOrdered By: Dr. Rao on 05-29-2022 Platelets (Bld) [#/Vol] 222 10*3/uL 150-450 [facility] Glucose Glucometer (dC) [M ass/Vol]Ordered By: Dr. Rao on 05-28-2022 Glucose [Mass/Vol] 88 mg/dL 74-106 [facility] Comment on above: MANAGEMENT OF PATIEN T CARE PER NURSING PROTOCOL Laboratory - Chemistry and C hemistry - challengeOrdered By: Dr. Rao on 05-22-2022 Magnesium [Mass/Vol] 2.3 mg/dL 1.6-2.6 [facility] Basophil percentageOrdered B y: Dr. Cardenas on 05-13-2022 Bilirubin [Mass/Vol] 0.60 mg/dL 0.20-1.00 [facility] Comment on above: For patients on eltr ombopag therapy, use of Dimension [place] TBIL is not recommended. Chloride [Moles/Vol] 106 mmol/L 98-107 [facility] Cholesterol [Mass/Vol] 300 mg/dL <200 [facility] Comment on above: <200 mg/dL Desirable 200-240 mg/dL Borderline >240 mg/dL High Risk Glucose [Mass/Vol] 96 mg/dL 74-106 [facility] Potassium [Moles/Vol] 4.3 mmol/L 3.5-5.1 [facility] Protein [Mass/Vol] 7.3 g/dL 6.4-8.2 [facility] Sodium [Moles/Vol] 139 mmol/L 136-145 [facility] Triglyceride [Mass/Vol] 367 mg/dL <199 [facility] Comment on above: The drugs N-Acetylcy steine and Metamizole may falsely depress this assay.Serum Triglycerides Reference Interval Normal <150 mg/dL Borderline high 150 - 199 mg/dL High 200 - 499 mg/dL Very High > or = 500 mg/dL Iron measurement (mass/mass) Ordered By: Dr. Cardenas on 05-13-2022 Iron (Unsp spec) [Mass/Mass] 104 ug/dL 50-170 [facility] Laboratory - Chemistry and C hemistry - challengeOrdered By: Dr. Cardenas on 05-13-2022 ALP [Catalytic activity/Vol] 75 U/L 45-117 [facility] ALT [Catalytic activity/Vol] 24 U/L 13-56 [facility] CO2 [Moles/Vol] 27.0 mmol/L 21.0-32.0 [facility] Cobalamin (Vitamin B12) [Mass/Vol] 558 pg/mL 211-911 [facility] Free T4 [Mass/Vol] 1.46 ng/dL 0.76-1.46 [facility] Globulin (S) [Mass/Vol] 3.5 g/dL 2.2-4.2 [facility] Urea nitrogen/Creatinine [Mass ratio] 24.3 mg/mg 10-20 [facility] No Panel InformationOrdered By: Dr. Cardenas on 05-13-2022 Estimated GFR (MDRD) Amer 86 mL/min >60 [facility] Comment on above: GFR Calc Estimated GFR (MDRD) Non-Af Amer 71 mL/min >60 [facility] Comment on above: Non- GFR Calc Free Triiodothyronine (T3) pg/dL 2.2 pg/mL 2.18-3.98 [facility] Thyroid Stimulating Hormone (TSH) 4.05 uIU/mL 0.358-3.74 [facility] Vitamin D 25-Hydroxy 36.1 ng/mL [facility] Comment on above: Vitamin D 25(OH) Sta tus Range Deficiency <20 ng/mL (50nmol/L) Insufficiency 20 - 30 ng/mL (50 - 75 nmol/L) Sufficiency 30 - 100 ng/mL (75 - 250 nmol/L) Toxicity >100 ng/mL (>250 nmol/L) Serum or plasma albumin idris urement (mass/volume)Ordered By: Dr. Cardenas on 05-13-2022 Albumin [Mass/Vol] 3.8 g/dL 3.2-5.0 [facility] Serum or plasma albumin/glob ulin mass ratioOrdered By: Dr. Cardenas on 05-13-2022 Albumin/Globulin [Mass ratio] 1.1 {ratio} 0.9-2.4 [facility] Serum or plasma calcium idris urement (mass/volume)Ordered By: Dr. Cardenas on 05-13-2022 Calcium [Mass/Vol] 9.6 mg/dL 8.5-10.1 [facility] Serum or plasma cholesterol in HDL measurement (mass/volume)Ordered By: Dr. Cardenas on 05-13-2022 Cholesterol in HDL [Mass/Vol] 53 mg/dL >40 [facility] Comment on above: The drugs N-Acetylcy steine and Metamizole may falsely depress this assay. Reference Range HDL <40 mg/dL Low HDL Cholesterol HDL >or= 60 mg/dL High HDL Cholesterol Serum or plasma cholesterol in VLDL measurement (mass/volume)Ordered By: Dr. Cardenas on 05-13-2022 Cholesterol in VLDL [Mass/Vol] 73 mg/dL 5-40 [facility] Serum or plasma creatinine m easurement (mass/volume)Ordered By: Dr. Cardenas on 05-13-2022 Creatinine [Mass/Vol] 0.82 mg/dL 0.55-1.02 [facility] Comment on above: The validity of the calculated GFR & GFRAA in patients over 70 years has not been determined. Clinical correlation is essential. Serum or plasma low density lipoprotein (LDL) cholesterol measurement (mass/volume)Ordered By: Dr. Cardenas on 05-13-2022 Cholesterol in LDL [Mass/Vol] 174 mg/dL 0-130 [facility] Serum or plasma urea nitroge n measurement (mass/volume)Ordered By: Dr. Cardenas on 05-13-2022 Urea nitrogen [Mass/Vol] 20 mg/dL 7-18 [facility] Thin prep Papanicolaou smear with manual screeningOrdered By: Dr. Cardenas on 05-13-2022 Thin prep Papanicolaou smear with manual screening 13 U/L 15-37 [facility] Thin prep Papanicolaou smear with manual screening 6 5-15 [facility] Vital Signs Date Time Vital Sign Value Performing Clinician Faci lity 11-24-2024 11:02-0400 Body mass index (BMI) [Ratio] 33.5 kg/m2 Dr. Elis Cardenas DO Work Phone: [facility] 11-24-2024 10:01-0400 Body temperature 98.8 [degF] Dr. Elis Cardenas DO Work Phone: [facility] 11-24-2024 10:01-0400 Diastolic blood pressure 49 mm[Hg] Dr. Elis Cardenas DO Work Phone: [facility] 11-24-2024 10:01-0400 Heart rate 63 /min Dr. Elis Cardenas DO Work Phone: [facility] 11-24-2024 10:01-0400 Respiratory rate 16 /min Dr. Elis Cardenas DO Work Phone: [facility] 11-24-2024 10:01-0400 SaO2% (BldA) [Mass fraction] 98 % Dr. Elis Cardenas DO Work Phone: [facility] 11-24-2024 10:01-0400 Systolic blood pressure 136 mm[Hg] Dr. Elis Cardenas DO Work Phone: [facility] 11-23-2024 18:15-0400 Body height 157.[address] Elis Cardenas DO Work Phone: [facility] 11-23-2024 18:15-0400 Body temperature 97.8 [degF] Dr. Elis Cardenas DO Work Phone: [facility] 11-23-2024 18:15-0400 Body weight 83.[address] Elis Cardenas DO Work Phone: [facility] 11-23-2024 18:15-0400 Diastolic blood pressure 57 mm[Hg] Dr. Elis Cardenas DO Work Phone: [facility] 11-23-2024 18:15-0400 Heart rate 59 /min Dr. Elis Cardenas DO Work Phone: [facility] 11-23-2024 18:15-0400 Respiratory rate 14 /min Dr. Elis Cardenas DO Work Phone: [facility] 11-23-2024 18:15-0400 SaO2% (BldA) [Mass fraction] 99 % Dr. Elis Cardenas DO Work Phone: [facility] 11-23-2024 18:15-0400 Systolic blood pressure 134 mm[Hg] Dr. Elis Cardenas DO Work Phone: [facility] 11-23-2024 15:57-0400 Body height 157.[address] Elis Cardenas DO Work Phone: [facility] 11-23-2024 15:57-0400 Body mass index (BMI) [Ratio] 35.7 kg/m2 Dr. Elis Cardenas DO Work Phone: [facility] 11-23-2024 15:57-0400 Body weight 88.[address] Elis Cardenas DO Work Phone: [facility] 10-18-2024 13:17-0400 Body height 157.[address] Elis Cardenas DO Work Phone: [facility] 10-18-2024 13:17-0400 Body mass index (BMI) [Ratio] 32.5 kg/m2 Dr. Elis Cardenas DO Work Phone: [facility] 10-18-2024 13:17-0400 Body temperature 98.3 [degF] Dr. Elis Cardenas DO Work Phone: [facility] 10-18-2024 13:17-0400 Body weight 80.[address] Elis Cardenas DO Work Phone: [facility] 10-18-2024 13:17-0400 Diastolic blood pressure 72 mm[Hg] Dr. Elis Cardenas DO Work Phone: [facility] 10-18-2024 13:17-0400 Heart rate 83 /min Dr. Elis Cardenas DO Work Phone: [facility] 10-18-2024 13:17-0400 Respiratory rate 18 /min Dr. Elis Cardenas DO Work Phone: [facility] 10-18-2024 13:17-0400 SaO2% (BldA) [Mass fraction] 96 % Dr. Elis Cardenas DO Work Phone: [facility] 10-18-2024 13:17-0400 Systolic blood pressure 120 mm[Hg] Dr. Elis Cardenas DO Work Phone: [facility] 09-27-2024 09:02-0400 Body height 157.[address] Elis Cardenas DO Work Phone: [facility] 09-27-2024 09:02-0400 Body mass index (BMI) [Ratio] 30.7 kg/m2 Dr. Elis Cardenas DO Work Phone: [facility] 09-27-2024 09:02-0400 Body weight 76.[address] Elis Cardenas DO Work Phone: [facility] 09-27-2024 09:02-0400 Diastolic blood pressure 69 mm[Hg] Dr. Elis Cardenas DO Work Phone: [facility] 09-27-2024 09:02-0400 Heart rate 60 /min Dr. Elis Cardenas DO Work Phone: [facility] 09-27-2024 09:02-0400 Respiratory rate 16 /min Dr. Elis Cardenas DO Work Phone: [facility] 09-27-2024 09:02-0400 SaO2% (BldA) [Mass fraction] 94 % Dr. Elis Cardenas DO Work Phone: [facility] 09-27-2024 09:02-0400 Systolic blood pressure 114 mm[Hg] Dr. Elis Cardenas DO Work Phone: [facility] 08-24-2024 08:16-0400 Body mass index (BMI) [Ratio] 30.7 kg/m2 Dr. Elis Cardenas DO Work Phone: [facility] 08-24-2024 08:16-0400 Body weight 76.[address] Elis Cardenas DO Work Phone: [facility] 08-24-2024 08:16-0400 Diastolic blood pressure 79 mm[Hg] Dr. Elis Cardenas DO Work Phone: [facility] 08-24-2024 08:16-0400 Heart rate 60 /min Dr. Elis Cardenas DO Work Phone: [facility] 08-24-2024 08:16-0400 Respiratory rate 18 /min Dr. Elis Cardenas DO Work Phone: [facility] 08-24-2024 08:16-0400 Systolic blood pressure 138 mm[Hg] Dr. Elis Cardenas DO Work Phone: [facility] 07-13-2024 14:03-0400 Body temperature 98 [degF] Dr. Elis Cardenas DO Work Phone: [facility] 07-13-2024 14:03-0400 Diastolic blood pressure 70 mm[Hg] Dr. Elis Cardenas DO Work Phone: [facility] 07-13-2024 14:03-0400 Heart rate 73 /min Dr. Elis Cardenas DO Work Phone: [facility] 07-13-2024 14:03-0400 Respiratory rate 16 /min Dr. Elis Cardenas DO Work Phone: [facility] 07-13-2024 14:03-0400 SaO2% (BldA) [Mass fraction] 97 % Dr. Elis Cardenas DO Work Phone: [facility] 07-13-2024 14:03-0400 Systolic blood pressure 132 mm[Hg] Dr. Elis Cardenas DO Work Phone: [facility] 05-16-2024 13:46-0500 Body temperature 98 [degF] Dr. Elis Cardenas DO Work Phone: [facility] 05-16-2024 13:46-0500 Body weight 79.[address] Elis Cardenas DO Work Phone: [facility] 05-16-2024 13:46-0500 Diastolic blood pressure 77 mm[Hg] Dr. Elis Cardenas DO Work Phone: [facility] 05-16-2024 13:46-0500 Heart rate 60 /min Dr. Elis Cardenas DO Work Phone: [facility] 05-16-2024 13:46-0500 Respiratory rate 16 /min Dr. Elis Cardenas DO Work Phone: [facility] 05-16-2024 13:46-0500 SaO2% (BldA) [Mass fraction] 98 % Dr. Elis Cardenas DO Work Phone: [facility] 05-16-2024 13:46-0500 Systolic blood pressure 143 mm[Hg] Dr. Elis Cardenas DO Work Phone: [facility] 04-25-2024 10:16-0500 Body temperature 98 [degF] Dr. Elis Cardenas DO Work Phone: [facility] 04-25-2024 10:16-0500 Diastolic blood pressure 64 mm[Hg] Dr. Elis Cardenas DO Work Phone: [facility] 04-25-2024 10:16-0500 Heart rate 68 /min Dr. Elis Cardenas DO Work Phone: [facility] 04-25-2024 10:16-0500 Respiratory rate 16 /min Dr. Elis Cardenas DO Work Phone: [facility] 04-25-2024 10:16-0500 SaO2% (BldA) [Mass fraction] 97 % Dr. Elis Cardenas DO Work Phone: [facility] 04-25-2024 10:16-0500 Systolic blood pressure 128 mm[Hg] Dr. Elis Cardenas DO Work Phone: [facility] 08-17-2023 10:58-0400 Body height 157.[address] Elis Cardenas Work Phone: [facility] 08-17-2023 10:58-0400 Body mass index (BMI) [Ratio] 29.6 kg/m2 Dr. Elis Cardenas Work Phone: [facility] 08-17-2023 10:58-0400 Body temperature 98.2 [degF] Dr. Elis Cardenas Work Phone: [facility] 08-17-2023 10:58-0400 Body weight 73.[address] Elis Cardenas Work Phone: [facility] 08-17-2023 10:58-0400 Diastolic blood pressure 80 mm[Hg] Dr. Elis Cardenas Work Phone: [facility] 08-17-2023 10:58-0400 Heart rate 66 /min Dr. Elis Cardenas Work Phone: [facility] 08-17-2023 10:58-0400 Respiratory rate 17 /min Dr. Elis Cardenas Work Phone: [facility] 08-17-2023 10:58-0400 SaO2% (BldA) [Mass fraction] 97 % Dr. Elis Cardenas Work Phone: [facility] 08-17-2023 10:58-0400 Systolic blood pressure 116 mm[Hg] Dr. Elis Cardenas Work Phone: [facility] 08-11-2023 09:38-0400 Body weight 73.[address] Elis Cardenas Work Phone: [facility] 07-12-2023 09:05-0400 Body height 157.[address] Elis Cardenas Work Phone: [facility] 07-12-2023 09:05-0400 Body weight 74.[address] Elis Cardenas Work Phone: [facility] 07-07-2023 13:03-0400 Body mass index (BMI) [Ratio] 30.3 kg/m2 Dr. Elis Cardenas Work Phone: [facility] 07-07-2023 13:03-0400 Body weight 75.[address] Elis Cardenas Work Phone: [facility] 07-07-2023 13:03-0400 Diastolic blood pressure 68 mm[Hg] Dr. Elis Cardenas Work Phone: [facility] 07-07-2023 13:03-0400 Heart rate 60 /min Dr. Elis Cardenas Work Phone: [facility] 07-07-2023 13:03-0400 Respiratory rate 16 /min Dr. Elis Cardenas Work Phone: [facility] 07-07-2023 13:03-0400 Systolic blood pressure 117 mm[Hg] Dr. Elis Cardenas Work Phone: [facility] 06-11-2023 08:22-0500 Body height 157.[address] Elis Cardenas Work Phone: [facility] 06-11-2023 08:22-0500 Body weight 75.[address] Elis Cardenas Work Phone: [facility] 05-13-2023 12:05-0500 Body temperature 97.8 [degF] Dr. Elis Cardenas Work Phone: [facility] 05-13-2023 12:05-0500 Diastolic blood pressure 65 mm[Hg] Dr. Elis Cardenas Work Phone: [facility] 05-13-2023 12:05-0500 Heart rate 70 /min Dr. Elis Cardenas Work Phone: [facility] 05-13-2023 12:05-0500 Respiratory rate 18 /min Dr. Elis Cardenas Work Phone: [facility] 05-13-2023 12:05-0500 SaO2% (BldA) [Mass fraction] 97 % Dr. Elis Cardenas Work Phone: [facility] 05-13-2023 12:05-0500 Systolic blood pressure 135 mm[Hg] Dr. Elis Cardenas Work Phone: [facility] 05-13-2023 00:53-0500 Body mass index (BMI) [Ratio] 31.7 kg/m2 Dr. Elis Cardenas Work Phone: [facility] 05-13-2023 00:53-0500 Body weight 78.[address] Elis Cardenas Work Phone: [facility] 05-12-2023 12:53-0500 Body height 157.[address] Elis Cardenas Work Phone: [facility] 04-23-2023 13:03-0500 Body mass index (BMI) [Ratio] 30.7 kg/m2 Dr. Elis Cardenas Work Phone: [facility] 04-23-2023 13:03-0500 Body weight 76.[address] Elis Cardenas Work Phone: [facility] 04-23-2023 13:03-0500 Diastolic blood pressure 74 mm[Hg] Dr. Elis Cardenas Work Phone: [facility] 04-23-2023 13:03-0500 Heart rate 60 /min Dr. Elis Cardenas Work Phone: [facility] 04-23-2023 13:03-0500 Respiratory rate 16 /min Dr. Elis Cardenas Work Phone: [facility] 04-23-2023 13:03-0500 Systolic blood pressure 125 mm[Hg] Dr. Elis Cardenas Work Phone: [facility] 04-12-2023 11:19-0500 Body mass index (BMI) [Ratio] 30.2 kg/m2 Dr. Elis Cardenas Work Phone: [facility] 04-12-2023 11:18-0500 Body weight 74.[address] Elis Cardenas Work Phone: [facility] 04-12-2023 10:42-0500 Diastolic blood pressure 48 mm[Hg] Dr. Elis Cardenas Work Phone: [facility] 04-12-2023 10:42-0500 Heart rate 65 /min Dr. Elis Cardenas Work Phone: [facility] 04-12-2023 10:42-0500 SaO2% (BldA) [Mass fraction] 97 % Dr. Elis Cardenas Work Phone: [facility] 04-12-2023 10:42-0500 Systolic blood pressure 118 mm[Hg] Dr. Elis Cardenas Work Phone: [facility] 04-12-2023 10:26-0500 Body height 157.[address] Elis Cardenas Work Phone: [facility] 03-13-2023 09:37-0500 Body temperature 97.6 [degF] Dr. Elis Cardenas Work Phone: [facility] 03-13-2023 09:37-0500 Diastolic blood pressure 57 mm[Hg] Dr. Elis Cardenas Work Phone: [facility] 03-13-2023 09:37-0500 Heart rate 66 /min Dr. Elis Cardenas Work Phone: [facility] 03-13-2023 09:37-0500 Respiratory rate 12 /min Dr. Elis Cardenas Work Phone: [facility] 03-13-2023 09:37-0500 SaO2% (BldA) [Mass fraction] 96 % Dr. Elis Cardenas Work Phone: [facility] 03-13-2023 09:37-0500 Systolic blood pressure 118 mm[Hg] Dr. Elis Cardenas Work Phone: [facility] 03-13-2023 02:23-0500 Body mass index (BMI) [Ratio] 32.7 kg/m2 Dr. Elis Cardenas Work Phone: [facility] 03-13-2023 02:23-0500 Body weight 81.[address] Elis Cardenas Work Phone: [facility] 03-12-2023 05:35-0500 Body height 157.[address] Elis Cardenas Work Phone: [facility] 03-12-2023 03:56-0500 Body temperature 97.9 [degF] Dr. Elis Cardenas Work Phone: [facility] 03-12-2023 03:56-0500 Diastolic blood pressure 69 mm[Hg] Dr. Elis Cardenas Work Phone: [facility] 03-12-2023 03:56-0500 Heart rate 67 /min Dr. Elis Cardenas Work Phone: [facility] 03-12-2023 03:56-0500 Respiratory rate 18 /min Dr. Elis Cardenas Work Phone: [facility] 03-12-2023 03:56-0500 SaO2% (BldA) [Mass fraction] 96 % Dr. Elis Cardenas Work Phone: [facility] 03-12-2023 03:56-0500 Systolic blood pressure 151 mm[Hg] Dr. Elis Cardenas Work Phone: [facility] 03-12-2023 00:19-0500 Body height 157.[address] Elis Cardenas Work Phone: [facility] 03-12-2023 00:19-0500 Body mass index (BMI) [Ratio] 33.5 kg/m2 Dr. Elis Cardenas Work Phone: [facility] 03-12-2023 00:19-0500 Body weight [address] Elis Cardenas Work Phone: [facility] 02-15-2023 09:08-0400 Body mass index (BMI) [Ratio] 31.6 kg/m2 Dr. Elis Cardenas Work Phone: [facility] 02-15-2023 09:08-0400 Body temperature 97.7 [degF] Dr. Elis Cardenas Work Phone: [facility] 02-15-2023 09:08-0400 Body weight 78.[address] Elis Cardenas Work Phone: [facility] 02-15-2023 09:08-0400 Diastolic blood pressure 70 mm[Hg] Dr. Elis Cardenas Work Phone: [facility] 02-15-2023 09:08-0400 Heart rate 68 /min Dr. Elis Cardenas Work Phone: [facility] 02-15-2023 09:08-0400 Respiratory rate 17 /min Dr. Elis Cardenas Work Phone: [facility] 02-15-2023 09:08-0400 SaO2% (BldA) [Mass fraction] 98 % Dr. Elis Cardenas Work Phone: [facility] 02-15-2023 09:08-0400 Systolic blood pressure 134 mm[Hg] Dr. Elis Cardenas Work Phone: [facility] 10-21-2022 20:08-0400 Diastolic blood pressure 78 mm[Hg] Dr. Elis Cardenas Work Phone: [facility] 10-21-2022 20:08-0400 Heart rate 56 /min Dr. Elis Cardenas Work Phone: [facility] 10-21-2022 20:08-0400 Respiratory rate 16 /min Dr. Elis Cardenas Work Phone: [facility] 10-21-2022 20:08-0400 SaO2% (BldA) [Mass fraction] 97 % Dr. Elis Cardenas Work Phone: [facility] 10-21-2022 20:08-0400 Systolic blood pressure 153 mm[Hg] Dr. Elis Cardenas Work Phone: [facility] 10-21-2022 20:07-0400 Body mass index (BMI) [Ratio] 32.9 kg/m2 Dr. Elis Cardenas Work Phone: [facility] 10-21-2022 20:07-0400 Body weight 81.[address] Elis Cardenas Work Phone: [facility] 10-21-2022 16:33-0400 Body height 157.[address] Elis Cardenas Work Phone: [facility] 10-21-2022 16:33-0400 Body temperature 97.4 [degF] Dr. Elis Cardenas Work Phone: [facility] 07-08-2022 08:43-0400 Diastolic blood pressure 72 mm[Hg] Dr. Elis Cardenas Work Phone: [facility] 07-08-2022 08:43-0400 Systolic blood pressure 158 mm[Hg] Dr. Elis Cardenas Work Phone: [facility] 05-29-2022 13:38-0500 Body temperature 97.7 [degF] Dr. Elis Cardenas Work Phone: [facility] 05-29-2022 13:38-0500 Diastolic blood pressure 59 mm[Hg] Dr. Elis Cardenas Work Phone: [facility] 05-29-2022 13:38-0500 Heart rate 65 /min Dr. Elis Cardenas Work Phone: [facility] 05-29-2022 13:38-0500 Respiratory rate 18 /min Dr. Elis Cardenas Work Phone: [facility] 05-29-2022 13:38-0500 SaO2% (BldA) [Mass fraction] 96 % Dr. Elis Cardenas Work Phone: [facility] 05-29-2022 13:38-0500 Systolic blood pressure 132 mm[Hg] Dr. Elis Cardenas Work Phone: [facility] 05-28-2022 11:54-0500 Inhaled oxygen flow rate 2 L/min Dr. Elis Cardenas Work Phone: [facility] 05-28-2022 06:29-0500 Body height 157.[address] Elis Cardenas Work Phone: [facility] 05-28-2022 06:29-0500 Body mass index (BMI) [Ratio] 32.6 kg/m2 Dr. Elis Cardenas Work Phone: [facility] 05-28-2022 06:29-0500 Body weight [address] Elis Cardenas Work Phone: [facility] 05-14-2022 14:37-0500 Diastolic blood pressure 67 mm[Hg] Dr. Elis Cardenas Work Phone: [facility] 05-14-2022 14:37-0500 Systolic blood pressure 141 mm[Hg] Dr. Elis Cardenas Work Phone: [facility] 03-05-2022 08:18-0500 Body height 157.[address] Elis Cardenas Work Phone: [facility] Work Phone: 03-05-2022 08:18-0500 Diastolic blood pressure 68 mm[Hg] Dr. Elis Cardenas Work Phone: [facility] 03-05-2022 08:18-0500 Systolic blood pressure 127 mm[Hg] Dr. Elis Cardenas Work Phone: [facility] 02-24-2022 13:38-0400 Body mass index (BMI) [Ratio] 31.1 kg/m2 Dr. Elis Cardenas Work Phone: [facility] 02-24-2022 13:38-0400 Body weight 77.[address] Elis Cardenas Work Phone: [facility] 02-24-2022 13:38-0400 Diastolic blood pressure 70 mm[Hg] Dr. Elis Cardenas Work Phone: [facility] 02-24-2022 13:38-0400 Systolic blood pressure 132 mm[Hg] Dr. Elis Cardenas Work Phone: [facility] 12-25-2021 08:59-0400 Body height 157.[address] Elis Cardenas Work Phone: [facility] Work Phone: 12-25-2021 08:59-0400 Diastolic blood pressure 70 mm[Hg] Dr. Elis Cardenas Work Phone: [facility] Work Phone: 12-25-2021 08:59-0400 Systolic blood pressure 160 mm[Hg] Dr. Elis Cardenas Work Phone: [facility] Work Phone: Encounters Encounter Date Encounter Type Care Provider Facility Start: 01-19-2025 ambulatory Elis Cardenas Facility:[facility] Start: 12-29-2024 End: 12-29-2024 ambulatory EASTON SPENCER Facility:[facility] Start: 12-08-2024 ambulatory Elis Cardenas Facility:[facility] Start: 11-24-2024 ambulatory Lynne Tabares Facility:[facility] Start: 11-23-2024 End: 11-24-2024 ambulatory Tad Trimble Facility:[facility] Start: 11-23-2024 End: 11-24-2024 Evaluation and management of inpatient Dr. Tad Trimble DO -Progressive Care Unit Work Phone: Start: 11-23-2024 End: 11-24-[address] Elis Cardenas DO Work Phone: -Progressive Care Unit Start: 11-13-2024 End: 11-13-[address] Elis Cardenas DO Work Phone: -[facility] [place] Start: 11-13-2024 End: 11-13-[address] Lucian Munoz DO -[facility] [place] Work Phone: Start: 11-13-2024 End: 11-13-2024 ambulatory Elis Cardenas Facility:[facility] Start: 11-07-2024 End: 11-07-[address] Elis Cardenas DO Work Phone: -[facility] [place] Start: 11-07-2024 End: 11-07-2024 Patient encounter procedure EASTON SPENCER [employer]-Nicol -[facility] [place] Work Phone: Start: 11-07-2024 End: 11-07-2024 ambulatory EASTON SPENCER Facility:[facility] Start: 10-24-2024 Non-patient / Non-visit Dr. Kourtney Virk MD -[facility] Work Phone: Start: 10-18-2024 End: 10-18-2024 Patient encounter procedure Afua SETH -[facility] Work Phone: Start: 10-18-2024 End: 10-18-[address] Elis Cardenas DO Work Phone: [facility] Work Phone: Start: 09-27-2024 End: 09-27-[address] Elis Cardenas DO Work Phone: [facility] Work Phone: Start: 09-27-2024 End: 09-27-2024 Patient encounter procedure Afua SETH -[facility] Work Phone: Start: 09-27-2024 End: 09-27-2024 ambulatory Elis Cardenas Facility:[facility] Start: 09-27-2024 End: 09-27-2024 ambulatory Elis Cardenas Facility:[facility] Start: 08-24-2024 End: 08-24-[address] 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 Elis Cardenas DO Work Phone: [facility] Work Phone: Start: 07-17-2024 End: 07-17-[address] [facility] Start: 07-17-2024 Registered Referred Self Referred -[facility] Work Phone: Start: 07-17-2024 ambulatory Self Referred Facility: [facility] Start: 07-17-2024 End: 07-17-2024 ambulatory [facility] Facility:[facility] Start: 07-13-2024 End: 07-13-[address] Royal Martinez MD -[facility] Work Phone: Start: 07-13-2024 End: 07-13-2024 ambulatory Elis Cardenas Facility:[facility] Start: 05-22-2024 End: 05-22-[address] [facility] Start: 05-22-2024 End: 05-22-2024 [facility] Start: 05-16-2024 End: 05-16-2024 Patient encounter procedure Uzma FERREIRA -[facility] Work Phone: Start: 05-16-2024 End: 05-16-2024 ambulatory Claribel FERREIRA Facility:[facility] Start: 05-02-2024 End: 05-02-[address] Royal Martinez MD -[facility] Work Phone: Start: 05-02-2024 End: 05-02-2024 ambulatory Royal Martinez Facility:[facility] Start: 04-25-2024 End: 04-25-[address] Royal Martinez MD -[facility] Work Phone: Start: 04-25-2024 End: 04-25-2024 ambulatory Royal Martinez Facility:[facility] Start: 04-04-2024 ambulatory Bella Irving Facility:[facility] Start: 04-04-2024 Non-patient / Non-visit [facility]. [facility] Start: 04-04-2024 ambulatory Bella Aristides Facility:[facility] Start: 04-04-2024 Non-patient / Non-visit Dr. Jakub Godinez MD -[facility] Start: 04-04-2024 End: 04-04-[address] Bella Irving MD -[facility] Services Work Phone: Start: 04-04-2024 End: 04-04-2024 ambulatory Bella Aristides Facility:[facility] Start: 03-21-2024 End: 03-21-2024 ambulatory Bella Aristides Facility:[facility] Start: 03-13-2024 End: 03-13-2024 ambulatory Bella Aristides Facility:[facility] Start: 01-17-2024 End: 01-17-2024 ambulatory Elis Cardenas Facility:[facility] Start: 08-17-2023 End: 08-17-[address] Elis Cardenas Work Phone: [facility] Work Phone: Start: 08-16-2023 End: 08-24-[address] Elis Cardenas Work Phone: [facility] Work Phone: Start: 08-16-2023 End: 08-24-[address] Elis Cardenas Work Phone: [facility]-Cardiac Rehab Work Phone: Start: 07-23-2023 End: 07-25-[address] Elis Cardenas Work Phone: [facility] Work Phone: Start: 07-23-2023 End: 07-25-[address] Elis Cardenas Work Phone: [facility] Work Phone: Start: 07-14-[address] Elis Cardenas Work Phone: [facility] Work Phone: Start: 07-09-2023 Non-patient / Non-visit [facility] Start: 07-09-2023 End: 07-09-[address] Elis Cardenas Work Phone: [facility] Work Phone: Start: 07-09-2023 End: 07-09-[address] [facility] Start: 07-07-2023 End: 07-07-[address] Elis Cardenas Work Phone: [facility] Work Phone: Start: 06-23-2023 End: 06-24-[address] Elis Cardenas Work Phone: [facility] Work Phone: Start: 06-23-2023 End: 06-24-[address] Elis Cardenas Work Phone: [facility] Work Phone: Start: 05-26-2023 End: 05-26-[address] Elis Cardenas Work Phone: [facility] Work Phone: Start: 05-13-2023 End: 05-13-2023 Non-patient / Non-visit Dr. Elis Cardenas Work Phone: [facility] Work Phone: Start: 05-12-2023 End: 05-13-2023 Evaluation and management of inpatient Dr. Elis Cardenas Work Phone: [facility]-Intensive Care Unit Work Phone: Start: 05-12-2023 End: 05-13-[address] Elis Cardenas Work Phone: [facility] Work Phone: Start: 05-12-2023 Non-patient / Non-visit Dr. Elis Cardenas Work Phone: [facility] Start: 04-23-2023 End: 04-23-[address] Elis Cardenas Work Phone: [facility]-Laboratory Work Phone: Start: 04-23-2023 End: 04-23-[address] Elis Cardenas Work Phone: [facility] Work Phone: Start: 04-12-2023 End: 04-12-[address] Elis Cardenas Work Phone: [facility] Work Phone: Start: 04-12-2023 End: 04-12-[address] Elis Cardenas Work Phone: [facility] Work Phone: Start: 03-16-2023 Non-patient / Non-visit Dr. Elis Cardenas Work Phone: [facility] Start: 03-13-2023 Non-patient / Non-visit Dr. Elis Cardenas Work Phone: [facility] Work Phone: Start: 03-13-2023 End: 03-13-2023 Non-patient / Non-visit Dr. Elis Cardenas Work Phone: [facility] Work Phone: Start: 03-12-2023 Non-patient / Non-visit Dr. Elis Cardenas Work Phone: [facility] Start: 03-12-2023 Non-patient / Non-visit Dr. Elis Cardenas Work Phone: [facility] Work Phone: Start: 03-12-2023 End: 03-13-2023 Evaluation and management of inpatient Dr. Elis Cardenas Work Phone: [facility] Work Phone: Start: 02-15-2023 End: 02-15-[address] Elis Cardenas Work Phone: [facility] Work Phone: Start: 01-15-2023 End: 01-15-2023 ambulatory [facility] Work Phone: Start: 01-15-2023 End: 01-15-2023 Patient encounter procedure [facility] Breast [facility] Work Phone: Start: 01-13-2023 End: 01-13-2023 ambulatory [facility] Work Phone: Start: 01-13-2023 End: 01-13-2023 Patient encounter procedure [facility] Start: 11-11-2022 End: 11-11-2022 ambulatory [facility] Work Phone: Start: 11-11-2022 End: 11-11-2022 [facility] Start: 10-21-2022 End: 10-21-2022 Emergency department patient visit Dr. Elis Cardenas Work Phone: [facility]Emergency Department Work Phone: Start: 09-23-[address] Elis hernandez [facility] Work Phone: Start: 07-08-2022 End: 07-08-[address] Elis Cardenas Work Phone: [facility] Work Phone: Start: 05-29-2022 Non-patient / Non-visit Dr. Elis Cardenas Work Phone: [facility] Start: 05-28-2022 Non-patient / Non-visit Dr. Elis Cardenas Work Phone: [facility] Start: 05-28-2022 End: 05-29-2022 Admission to same day surgery center Dr. Elis Cardenas Work Phone: [facility] Start: 05-28-2022 End: 05-29-[address] Elis Cardenas Work Phone: [facility] Work Phone: Start: 05-22-2022 End: 05-22-2022 Non-patient / Non-visit Dr. Elis Cardenas Work Phone: [facility] Start: 05-14-2022 End: 05-14-[address] Elis Cardenas Work Phone: [facility] Start: 05-13-2022 End: 05-13-[address] Elis Cardenas Work Phone: [facility] Start: 03-11-2022 End: 03-11-[address] Elis Cardenas Work Phone: [facility] Work Phone: Start: 03-11-2022 End: 03-11-[address] Elis Cardenas Work Phone: [facility] Start: 03-05-2022 End: 03-05-[address] Elis Cardenas Work Phone: [facility] Start: 02-24-2022 End: 02-24-[address] Elis Cardenas Work Phone: [facility] Start: 01-13-2022 End: 01-13-[address] Elis Cardenas Work Phone: [facility] Work Phone: Start: 01-13-2022 End: 01-13-[address] Elis Cardenas Work Phone: [facility]Outpatient Bone Densitometry Start: 12-25-2021 End: 12-25-[address] Elis Cardenas Work Phone: [facility] Start: 12-23-2021 Non-patient / Non-visit Dr. Elis Cardenas Work Phone: [facility] Start: 12-23-[address] Elis hernandez Work Phone: [facility] Procedures Date Procedure Procedure Detail Performing Clinician Start: 11-24-2024 MRI of brain without contrast Dr. Elis hernandez DO Work Phone: Start: 11-24-[address] Elis Cardenas DO Work Phone: Start: 11-23-[address] Elis Cardenas DO Work Phone: Start: 11-23-2024 CT of head without contrast Dr. Elis gill DO Work Phone: Start: 11-23-2024 CT angiography of head and neck Dr. Elis Cardenas DO Work Phone: Start: 11-13-[address] Elis Cardenas DO Work Phone: Comment on above: Test Ordered: [id number] Alkaline Phosphatas eAlkaline Phosphatase 109 IU/L Reference Range: 44-121Performed at: [facility] [place], [place] [id number] Director: Yunier Newton PhD, Phone: [phone] Start: 11-13-[address] Elis Cardenas DO Work Phone: Comment on above: According to the National Academy of Cli nical Biochemistry,the reference interval for Thyroglobulin (TG) should berelated to euthyroid patients and not for patients whounderwent thyroidectomy. TG reference intervals for thesepatients depend on the residual mass of the thyroid tissueleft after surgery. Establishing a post-operative baselineis recommended. The assay limit of quantitation is 0.1ng/mLThyroglobulin measured by Gera-IT ImmunometricAssayPerformed at: [facility] ? [place], [place] [id number] Director: Yunier Newton PhD, Phone: [phone] Start: 11-13-[address] Dolores Cardenas DO Work Phone: Comment on above: Thyroglobulin Antibody measured by AlchemyAPI maksim CartwrightMethodologyIt should be noted that the presence of thyroglobulinantibodies may not be pathogenic nor diagnostic, especiallyat very low levels. The assay tablet technician has found thatfour percent of individuals without evidence of thyroiddisease or autoimmunity will have positive TgAb levels upto 4 IU/mL. Start: 11-07-[address] Elis Cardenas DO Work Phone: Comment on above: According to the National Academy of Cli nical Biochemistry,the reference interval for Thyroglobulin (TG) should berelated to euthyroid patients and not for patients whounderwent thyroidectomy. TG reference intervals for thesepatients depend on the residual mass of the thyroid tissueleft after surgery. Establishing a post-operative baselineis recommended. The assay limit of quantitation is 0.1ng/mLThyroglobulin measured by Gera-IT ImmunometricAssayPerformed at: [facility] [place], [place] [id number] Director: Yunier Newton PhD, Phone: [phone] Start: 11-07-[address] Dolores Cardenas DO Work Phone: Comment on above: Thyroglobulin Antibody measured by Mauro schaeffer CoulterMethodologyIt should be noted that the presence of thyroglobulinantibodies may not be pathogenic nor diagnostic, especiallyat very low levels. The assay tablet technician has found thatfour percent of individuals without evidence of thyroiddisease or autoimmunity will have positive TgAb levels upto 4 IU/mL. Start: 09-27-2024 Plain X-ray abdomen Dr. Elis Cardenas DO Work Phone: Start: 05-02-2024 CT angiography of head Dr. Elis Cardenas DO Work Phone: Start: 03-12-2023 Plain chest X-ray Dr. Elis Cardenas Work Phone: Start: 01-15-2023 Screening mammography Start: 10-21-2022 Plain chest X-ray Dr. Elis Cardenas Work Phone: Start: 10-21-2022 CT angiography of head and neck Dr. Elis Cardenas Work Phone: Start: 05-29-2022 CT of head without contrast Dr. Elis gill Work Phone: Start: 05-28-2022 Repair, Anterior & Posterior Sling Cysto Dr. Elis Cardenas Work Phone: Start: 05-28-[address] Elis Cardenas Work Phone: Start: 03-11-[address] Elis Cardenas Work Phone: Start: 03-11-[address] Elis Cardenas Work Phone: Start: 01-13-2022 Dual energy X-ray absorptiometry Dr. Camila Cardenas Work Phone: Start: 01-13-[address] Elis Cardenas Work Phone: H/O: hysterectomy Status post hysterectomy Dr. Elis Cardenas Work Phone: H/O: surgery Status post hysterectomy with oophorectomy Dr. Elis Cardenas Work Phone: Plan of Treatment Date Care Activity Detail Author Start: 11-24-2024 Patient discharge [facility] Start: 11-24-2024 Complete blood count [facility] Start: 11-23-2024 Following clinical pathway protocol [facility] Start: 11-23-2024 Application of intermittent pneumatic compression device [facility] Start: 11-23-2024 Aspiration precautions [facility] Start: 11-23-2024 Assessment of risk of venous thromboembolism [facility] Start: 11-23-2024 Cardiac monitoring [facility] Start: 11-23-[address] [facility] Start: 11-23-2024 Consultation [facility] Start: 11-23-2024 Continuous pulse oximetry [facility] Start: 11-23-2024 Elevation of head of bed [facility] Start: 11-23-2024 Exercises [facility] Start: 11-23-2024 Incentive spirometry [facility] Start: 11-23-2024 Insertion of catheter into peripheral vein [facility] Start: 11-23-2024 Notification of physician [facility] Start: 11-23-2024 Oxygen therapy [facility] Start: 11-23-2024 Patient referral to dietitian [facility] Start: 11-23-2024 Providing care according to standard [facility] Start: 11-23-2024 Referral to occupational therapist [facility] Start: 11-23-2024 Referral to service [facility] Start: 11-23-2024 Speech therapy assessment [facility] Start: 11-23-2024 Telemedicine consultation with patient [facility] Start: 11-23-2024 Tobacco use cessation education [facility] Start: 11-23-2024 End: 11-23-2024 [facility] Start: 11-23-2024 Vital signs measurements [facility] Start: 11-23-2024 MRI of brain without contrast Brain without Contrast [facility] Start: 11-23-2024 Verification routine [facility] Start: 11-23-2024 Admission procedure [facility] Start: 11-23-2024 T4 free measurement [facility] Start: 11-23-2024 Thyroid stimulating hormone measurement [facility] Start: 11-23-2024 End: 11-23-2024 [facility] Start: 11-23-2024 Oxygen therapy [facility] Start: 05-15-2023 Electrocardiographic procedure [facility] Start: 05-14-2023 Electrocardiographic procedure [facility] Start: 05-13-2023 Patient discharge [facility] Start: 05-12-2023 Patient referral [facility] Work Phone: Start: 05-12-2023 Following clinical pathway protocol [facility] Start: 05-12-2023 Admission procedure [facility] Start: 05-12-2023 Cardiac monitoring [facility] Start: 05-12-2023 Cardiac rehabilitation - phase 1 [facility] Start: 05-12-2023 Notification of physician [facility] Start: 05-12-2023 Oxygen therapy [facility] Start: 05-12-2023 Patient discharge [facility] Start: 05-12-2023 Systemic arterial pressure monitoring [facility] Start: 05-12-2023 Taking patient vital signs [facility] Start: 05-12-2023 Vascular disease risk assessment [facility] Start: 05-12-2023 Vital signs measurements [facility] Start: 05-12-2023 [facility] Start: 03-16-2023 Patient referral [facility] Work Phone: Start: 03-13-2023 Patient discharge [facility] Start: 03-13-2023 End: 03-13-2023 [facility] Start: 03-12-2023 End: 03-12-2023 Care planning and problem solving actions [facility] Start: 03-12-2023 Cardiac monitoring [facility] Start: 03-12-2023 Cardiac rehabilitation - phase 1 [facility] Start: 03-12-2023 Notification of physician [facility] Start: 03-12-2023 Patient discharge [facility] Start: 03-12-2023 Systemic arterial pressure monitoring [facility] Start: 03-12-2023 Taking patient vital signs [facility] Start: 03-12-2023 Vascular disease risk assessment [facility] Start: 03-12-2023 Vital signs measurements [facility] Start: 03-12-2023 [facility] Start: 03-12-2023 Following clinical pathway protocol [facility] Start: 03-12-2023 Assessment of risk of venous thromboembolism [facility] Start: 03-12-2023 Insertion of catheter into peripheral vein [facility] Start: 03-12-2023 Measuring intake and output [facility] Start: 03-12-2023 Oxygen therapy [facility] Start: 03-12-2023 Providing care according to standard [facility] Start: 03-12-2023 Provision of activity privileges [facility] Start: 03-12-2023 Referral to plastic tile layer [facility] Start: 03-12-2023 Referral to service [facility] Start: 03-12-2023 Tobacco use cessation education [facility] Start: 03-12-2023 [facility] Start: 03-12-2023 Verification routine [facility] Start: 03-12-2023 Hospital admission, emergency, from emergency room, medical nature [facility] Start: 03-12-2023 Admission procedure [facility] Start: 03-12-2023 [facility] Start: 05-29-2022 Consultation [facility] Start: 05-29-2022 Patient discharge [facility] Start: 05-28-2022 Admission procedure [facility] Start: 05-28-2022 Following clinical pathway protocol [facility] Start: 05-28-2022 Ambulation therapy management [facility] Start: 05-28-2022 Elevation of head of bed [facility] Start: 05-28-2022 Incentive spirometry [facility] Start: 05-28-2022 Measuring intake and output [facility] Start: 05-28-2022 Notification of physician [facility] Start: 05-28-2022 Oxygen therapy [facility] Start: 05-28-2022 Patient education [facility] Start: 05-28-2022 Procedures relating to eating and drinking [facility] Start: 05-28-2022 Taking patient vital signs [facility] Start: 05-28-2022 [facility] Start: 05-28-2022 Admission procedure [facility] Start: 01-13-2022 Dual energy X-ray absorptiometry Dexa Bone Density Study [facility] Work Phone: Start: 01-13-2022 DXA Bone [Mass/Area] Bone density [facility] Work Phone: Start: 12-25-2021 Patient referral [facility] Work Phone: Anion gap in Serum or Plasma [facility] BUN/Creatinine ratio [facility] Calcium [Mass/volume ] in Serum or Plasma [facility] Carbon dioxide, tota l [Moles/volume] in Central venous blood [facility] Cholesterol [Mass/vo lume] in Serum or Plasma [facility] Cholesterol in HDL [Mass/volume] in Serum or Plasma [facility] Comprehensive metabo lic 2000 panel - Serum or Plasma [facility] Creatinine [Mass/vol ume] in Serum or Plasma [facility] Erythrocyte mean cor puscular volume determination [facility] Folate [Mass/volume] in Serum or Plasma [facility] Glucose [Mass/volume ] in Serum or Plasma [facility] Hematocrit [Volume F raction] of Blood [facility] Hemoglobin [Mass/vol ume] in Blood [facility] Hemoglobin A1c/Hemog lobin.total in Blood [facility] Leukocytes [#/volume] in Blood [facility] Lipid 1996 panel - S jing or Plasma [facility] Low density lipoprot ein cholesterol measurement [facility] Mean corpuscular hem oglobin concentration determination [facility] Mean corpuscular hem oglobin determination [facility] Measurement of renal function [facility] Patient Education ED Corrales's Palsy [facility] Work Phone: Patient referral [facility] Work Phone: Platelets [#/volume] in Blood [facility] Potassium measurement [facility] Red blood cell count [facility] Red cell distributio n width determination [facility] Serum chloride measurement [facility] Sodium measurement [facility] Thiamine measurement [facility] Total cholesterol:HD L ratio measurement [facility] Triglycerides measurement [facility] Troponin T.cardiac [Mass/volume] in Serum or Plasma by High sensitivity method [facility] Troponin T.cardiac [Mass/volume] in Serum or Plasma by High sensitivity method [facility] Urea nitrogen [Mass/ volume] in Serum or Plasma [facility] US Heart limited [facility] Vitamin B12 measurement [facility] VLDL cholesterol measurement [facility] XR Abdomen Single view [facility] Payers Date Payer Category Payer Self-pay [id number] 2015 Private Health Insurance [id number] 2008 Medicare [id number] 1945 Unknown [id number] 2.16.8 40.1.247439.3.579.2.627 Unknown [id number] 2.16.8 40.1.507288.3.579.2.462 Unknown [id number] 2.16.8 40.1.453870.3.579.2.462 Unknown [id number] 2.16.8 40.1.454362.3.579.2.462 Unknown [id number] 2.16.8 40.1.211324.3.579.2.462 Unknown [id number] 2.16.8 40.1.247862.3.579.2.462 Unknown [id number] 2.16.8 40.1.239206.3.579.2.462 Unknown [id number] 2.16.8 40.1.360969.3.579.2.462 Unknown [id number] 2.16.8 40.1.318190.3.579.2.462 Unknown [id number] 2.16.8 40.1.749072.3.579.2.462 Unknown [id number] 2.16.8 40.1.635778.3.579.2.462 Unknown [id number] 2.16.8 40.1.864189.3.579.2.462 Unknown [id number] 2.16.8 40.1.145712.3.579.2.462 Unknown [id number] 2.16.8 40.1.473291.3.579.2.462 Unknown [id number] 2.16.8 40.1.144139.3.579.2.462 Unknown [id number] 2.16.8 40.1.591233.3.579.2.462 Unknown [id number] 2.16.8 40.1.755604.3.579.2.462 Unknown [id number] 2.16.8 40.1.822713.3.579.2.462 Unknown [id number] 2.16.8 40.1.426064.3.579.2.462 Unknown [id number] 2.16.8 40.1.196991.3.579.2.462 Unknown [id number] 2.16.8 40.1.850755.3.579.2.462 Unknown [id number] 2.16.8 40.1.406637.3.579.2.462 Unknown [id number] 2.16.8 40.1.281725.3.579.2.462 Unknown [id number] 2.16.8 40.1.945539.3.579.2.462 Unknown [id number] 2.16.8 40.1.379848.3.579.2.462 Unknown [id number] 2.16.8 40.1.738393.3.579.2.462 Unknown [id number] 2.16.8 40.1.517778.3.579.2.462 Social History Date Type Detail Facility Start: 12-25-2021 End: 07-07-2023 Tobacco smoking status NHIS Unknown if ever smoked [facility] Start: 09-27-2015 None [facility] Start: 09-27-2015 Spouse/ Signif icant Other [facility] Start: 09-19-2020 Non-smoker [facility] Start: 1945 Sex Assigned At Female [facility] Start: 07-07-2023 End: 11-24-2024 Tobacco smoking status NHIS Never smoked tobacco (finding) [facility] Start: 07-22-2024 Sex Female (finding) [facility] NEGATED: Highlighted row [facility] Medical Equipment Procedure Code Equipment Code Equipment Origin al Text Equipment Identifier Dates Vaginal hysterectomy ([id number]) [id number] FDA Start: 05-28-2022 Drug-eluting coronary artery stent, non-bioabsorbable- polymer-coated ()[id number] ([id number] FDA Start: 03-12-2023 Drug-eluting coronary artery stent, non-bioabsorbable- polymer-coated ()[id number] FDA Start: 05-12-2023 Drug-eluting coronary artery stent, non-bioabsorbable- polymer-coated ()[id number] FDA Start: 05-12-2023 Drug-eluting coronary artery stent, non-bioabsorbable- polymer-coated ()[id number] FDA Start: 05-12-2023 Drug-eluting coronary artery stent, non-bioabsorbable- polymer-coated ()[id number] FDA Start: 05-12-2023 Goals Date Patient Goal Desired Activity /State Functional Status Date Assessment Result Facility 11-24-2024 Functional status Ambulates;Chair [facility] Work Phone: 05-13-2023 Functional status Activity Abili ty With Assist of 1 [facility] Work Phone: 05-13-2023 Functional status Patient Activity Ambula martah [facility] Work Phone: 03-13-2023 Functional status Ambulates [facility] Work Phone: 05-29-2022 Functional status Ambulates [facility] Work Phone: Mental Status Date Assessment Result Facility 11-24-2024 Cognitive function Voice/Name [facility] Work Phone: 11-23-2024 Cognitive function Voice/Name [facility] Work Phone: 05-13-2023 Cognitive function Voice/Name [facility] Work Phone: 03-13-2023 Cognitive function Voice/Name [facility] Work Phone: 03-12-2023 Cognitive function Voice/Name [facility] Work Phone: 10-21-2022 Cognitive function Level Of Cons ciousness Awake;Alert [facility] Work Phone: 05-29-2022 Cognitive function Voice/Name [facility] Work Phone: Clinical Notes 05-28-2022 to 11-24-2024 Note Date & Type Note Facility 11-24-2024 Hospital Discharg e instructions Additional Instructions Date of Discharge: 11/24/24 [facility] Work Phone: 11-24-2024 Note [facility] Medical Records Department [address] [place] [address] Discharge Summary 11/24/24 1304 MR#: [id number] Acct: [id number] Name: LILLIANA HUBER Rep #: [id number] : 1945 79 From: Lynne Tabares DO PCP: Dr. Elis Cardenas DO Status:DIS LINA [id number] Date of Admission: 11/23/24 Date of Discharge: 11/24/24 Primary Care Physician: Dr. Elis Cardenas DO Consultations 11/23/24 18:12 Consult: Tele-Neurology Routine Consulting Provider: [facility] Reason for Consult: Acute Ischemic Stroke/TIA EMERGENT Consult: No MD Notified: Yes Date Notified: 11/23/24 Time Notified: 23:51 Method of Notification: Answering Service Nursing Unit Staff Notify [facility] of Tele-Neurology Consult: Yes Reason For Visit: STROKELIKE SYMPTOMS Diagnosis Discharge Diagnosis (1) Facial paresthesia: Status: Acute Code(s): R20.2 - Paresthesia of skin Medications at Discharge Home Medications ascorbic acid (vitamin C) 500 mg tablet (Vitamin C) 500 mg PO DAILY 05/21/22 cholecalciferol (vitamin D3) 125 mcg (5,000 unit) tablet (Vitamin D3) 125 mcg PO DAILY 05/21/22 aspirin 81 mg tablet,delayed release 81 mg PO DAILY@0800 #90 tabs 03/13/23 Handicap Placard #1 ea 04/23/23 levothyroxine 137 mcg tablet 137 mcg PO DAILY 04/23/23 lisinopril 20 mg tablet 20 mg PO DAILY #90 tabs 10/11/23 atorvastatin 40 mg tablet 40 mg PO QDAY #90 tabs 04/25/24 atenolol 25 mg tablet 25 mg PO DAILY #90 tabs 08/07/24 amlodipine 10 mg tablet 10 mg PO QDAY #90 tabs 08/24/24 lysine 1,000 mg tablet 500 mg PO DAILY 09/26/24 zinc lozenges 15 mg 50 mg PO DAILY 09/26/24 clopidogrel 75 mg tablet 75 mg PO DAILY #90 TABLETS 11/08/24 citalopram 10 mg tablet 10 mg PO DAILY 11/23/24 ticagrelor 90 mg tablet (Brilinta) 90 mg PO DAILY 11/23/24 Hospital Course Operations None Procedures 2-D Echocardiogram, EKG and - (CTA Head and Neck/CT Brain/ MRI Brain) Summary of Care Provided Minutes Spent on Discharge: 30 Hospital Course: Patient is an 79-year-old white female who presented to the emergency department [facility] on 11/23/2024 with a chief complaint of right facial numbness and tingling. She was writing checks when her R face began to feel funny. She denied any arm or leg paresthesias or any motor symptoms. She denied any headache. Because of her vascular history, she came in for further evaluation--> she has a hx basilar aa stenosis and CAD with stenting. She takes ASA and Plavix. VS on presentation show 98.2, HR 69, 18, 179/70, SpO2 was 99%. CBC showed a mild anemia and BMP was unremarkable. CT brain and CTA head and neck unremarkable except for chronic findings. Given her history with vascular issues, she was admitted for stroke workup. MRI of the brain was unremarkable for acute findings. ECHO showed and EF 55-60% with grade I diastolic dysfunction, moderate 2+ ELÍAS. Neuro saw the pt and was unclear on the etiology of her sx and didn't recommend any changes in her current therapy. Her TSH was 8.08, Free T4 was 1.50. She is on levothyroxine and no changes were made but pt will need outpt recheck in 6 weeks. She was d/c home in stable condition and asked to f/u with her PCP in 1-2 weeks. Discharge Diagnoses: R Facial Parasthesias Asymptomatic basilar artery stenosis CAD HTN HPL H/O thyroid cancer s/p thyroidectomy chronic systolic heart failure with recovered ejection fraction ELÍAS History of M???ni???re's disease MCI H/O Corrales's Palsy with L Facial Droop Obesity Physical Exam Const alert, oriented x3, no apparent distress, no limitations and well nourished; Negative for average body habitus Constitutional Narrative: Obese, elderly, white female, sitting up in a chair at the bedside, appears comfortable, nontoxic, at bedside General Appearance: cooperative, comfortable, well kempt and well developed Exam Limitations: no limitations Nutritional Appearance: obese HEENT normocephalic and head/scalp atraumatic HEENT Narrative: Mallampati 3, no thrush it is okay I am still doing notes maybe I will just drive to your house Eyes conjunctivae normal Eyes Narrative: No scleral icterus Resp normal respiratory effort, no retractions, no use of accessory muscles and clear to auscultation bilaterally Auscultation: Negative for rales, rhonchi or wheezes Cardio regular rate, regular rhythm, S1 normal heart sound, S2 normal heart sound, no murmurs, no rub, no gallops and no clicks GI normal to inspection, nondistended, normoactive bowel sounds, soft to palpation and non-tender Extremity no clubbing, cyanosis or edema Neuro oriented x3, CN's II-XII intact bilaterally, moves all extremities and no focal motor deficits Neuro Narrative: mild L facial droop Speech: speech normal Psych affect normal Psych Narrative: Extremely pleasant, inter (more content not included)... [facility] 11-24-2024 Consult note [facility] 11-23-2024 History and physical note Note Date/Time November 23, 2024 8:18pm [facility] Medical Records Department [address] [place] [address] H&P Exam - Hospitalist 11/23/24 1716 MR#: [id number] Acct: [id number] Name: LILLIANA HUBER Rep #:[id number] : 1945 79 From: Tad hunter DO PCP: Dr. Elis Cardenas, DO Status:ADM LINA Location: [place] [address] HPI - General General Date of Admission: 11/23/24 Date of Service: 11/23/24 Chief Complaint: Right facial numbness/tingling HPI Narrative LILLIANA HUBER, is a 79 F who presented to [facility] ED on 11/23/2024 with right facial numbness/tingling. 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 Patient lives at home with her . Today we will writing checks she statesthat her right face began to feel funny. She denied any arm or leg paresthesiasor any motor symptoms. Denied any headache. Because of her vascular history, she came in for further evaluation. In the ED she was initially hypertensive tothe 170s systolic but otherwise stable on room air at rest. CBC and BMP were benign. CT brain was unremarkable. CTA head/neck showed showed known stenosis of the proximal basilar artery and distal left vertebral artery that were unchanged. NIH score of 1. However, given her history neurology recommended admission and MRI brain for further evaluation. Hospitalist was then contacted for admission. I saw the patient at bedside in the ED, present. Patient was sitting back comfortably in bed, in no acute distress. She was alert and oriented x 3 though she did have some tangential speech noted with answering questions for me. She reported mild right facial numbness currently, improved from earlier today. Denied any other acute concerns currently. Will be admitted for further management. [facility] Medical History Coronary artery disease Hypertension Dyslipidemia Mild cognitive impairment Ischemic cardiomyopathy Arteriosclerotic cardiovascular disease Hearing loss, left Chest pain Stroke/cerebrovascular accident Compression neuropathy of genitofemoral nerve Stress incontinence Wears hearing aid Wears glasses Post-menopausal Depression Thyroid disease Arthritis High cholesterol Non-smoker Leg cramps History of stress test History of echocardiogram Uterovaginal prolapse, incomplete TIA (transient ischemic attack) History of stroke Cancer GERD (gastroesophageal reflux disease) Menieres disease Corrales's palsy Aphthous ulcer of mouth Hypothyroidism Hyperlipidemia Benign essential hypertension Home Medications ?Medication ?Instructions ?Recorded ?Last Taken ?Type ascorbic acid (vitamin C) 500 mg 500 mg PO DAILY 05/21 Unknown History tablet (Vitamin C) cholecalciferol (vitamin D3) 125 125 mcg PO DAILY 04/27 10/16 Unknown History mcg (5,000 unit) tablet (Vitamin D3) aspirin 81 mg tablet,delayed 81 mg PO DAILY@0800 #90 t abs 03/13/23 05/12/23 Rx release Handicap Placard #1 ea 04/23/23 Unknown Rx levothyroxine 137 mcg tablet 137 mcg PO DAILY 04/23/23 Unknown History lisinopril 20 mg tablet 20 mg PO DAILY #90 tabs 09/24 11/16 Unknown Rx atorvastatin 40 mg tablet 40 mg PO QDAY #90 tabs 04/25 Unknown Rx atenolol 25 mg tablet 25 mg PO DAILY #90 tabs 07/25 08/18 Unknown Rx amlodipine 10 mg tablet 10 mg PO QDAY #90 tabs 08/24 Unknown Rx lysine 1,000 mg tablet 500 mg PO DAILY 09/26/24 Unk nown History zinc lozenges 15 mg 50 mg PO DAILY 09/26/24 Unkn own History clopidogrel 75 mg tablet 75 mg PO DAILY #90 TABLETS 0 11/08/24 Unknown Rx citalopram 10 mg tablet 10 mg PO DAILY 11/23/24 Unkn own History ticagrelor 90 mg tablet (Brilinta) 90 mg PO DAILY 10/26 05/20 Unknown History Allergy/AdvReac Type Severity Reaction Status Date / Time Sulfa (Sulfonamide Allergy Intermediate Rash Verified 11/23/24 15:20 Antibiotics) pepper (genus Capsicum) Allergy Swelling Verified 11/23/24 15:20 adhesive tape AdvReac Intermediate Rash Verified 11/23/24 15:20 Penicillins AdvReac Unknown Rash Verified 11/23/24 15:20 Family History Mother Heart disease Surgical History Stented coronary artery (05/12/23) Status post hysterectomy with oophorectomy Hx of surgical procedure H/O tubal ligation H/O dilation and curettage H/O breast biopsy Hx of colonoscopy History of thyroidectomy H/O hernia repair Social History Smoking Status: Never smoker alcohol intake: never substance use type: does not use caffeine: Yes Type: coffee Number of servings: 1 seatbelt use: always do you feel safe at home: Yes additional social history: - [place] ROS Constitutional Constitutional: Denies chills, fatigue, fever(s) or weakness Eyes Eyes: Denies change in vision Cardiovascular Cardiovascular: Denies chest pain Respiratory/Chest Respiratory/Chest: Denies shortness of breath at rest Gastrointestinal Gastrointestinal: Denies abdominal pain Neurologic Neurologic: Reports numbness and tingling; Denies abnormal speech, confusion, dizziness, focal weakness or headache(s) Vital Signs Vital Signs Vital Signs: 11/23/24 15:18 11/23/24 15:57 11/23/24 15:57 Temperature 98.2 F Temperature Source Oral Pulse Rate 69 55 L Respiratory Rate 18 12 Blood Pressure 179/70 H 105/66 Blood Pressure Mean 106 79 Pulse Ox 99 97 Oxygen Delivery Method Room Air Room Air Room Air 11/23/24 16:03 11/23/24 16:18 11/23/24 16:30 Temperature Temperature Source Pulse Rate 55 L 60 61 Respiratory Rate 16 14 16 Blood Pressure 105/66 139/64 H 154/80 H Blood Pressure Mean 79 89 104 Pulse Ox 97 98 97 Oxygen Delivery Method Room Air Room Air Room Air 11/23/24 17:00 11/23/24 17:06 Temperature Temperature Source Pulse Rate 62 62 Respiratory Rate 15 15 Blood Pressure 131/62 H 131/62 H Blood Pressure Mean 85 85 Pulse Ox 96 96 Oxygen Delivery Method Room Air Room Air Weight Weight: 88.6 kg Body Mass Index (BMI) 35.7 Physical Exam Const alert, oriented x3 and no apparent distress Constitutional Narrative: Elderly female, class I obesity, alert and oriented x 3 but mild tangential speech noted with answering questions, otherwise sitting back comfortably in bedand in no acute distress. General Appearance: cooperative and comfortable HEENT normocephalic, head/scalp atraumatic, hearing grossly normal bilaterally, nasal mucous membranes and turbinates normal and moist oral mucous membranes Eyes PERRL, EOMs intact bilaterally and conjunctivae normal Neck full ROM Chest inspection of chest normal Resp normal respiratory effort, normal air movement, no use of accessory muscles and clear to auscultation bilaterally Cardio regular rate, regular rhythm, no murmurs and peripheral pulses 2+ throughout GI normal to inspection, nondistended, normoactive bowel sounds, soft to palpation,non-tender and non-distended Back/Spine normal ROM Extremity normal to inspection, full ROM and no pedal edema Skin no rashes or lesions noted Neuro moves all extremities and no focal motor deficits Neuro Narrative: Chronic left facial droop noted. No right facial droop. Speech: speech normal Motor Exam: strength 5/5 throughout Psych mental status grossly normal Results Lab / Micro Data 11/23/24 15:50 11/23/24 15:50 Labs: Laboratory Results - last 24 hr 11/23/24 15:50: WBC 5.0, RBC 3.80 L, Hgb 11.8 L, Hct 34.6 L, MCV 91.1, MCH 31.1,MCHC 34.1, RDW Std Deviation 42.8, RDW Coeff of Jennifer 13.0, Plt Count 179, MPV 9.1, Immature Gran % (Auto) 0.800, Neut % (Auto) 57.1, Lymph % (Auto) 26.5, [place]% (Auto) 11.0 H, Eos % (Auto) 3.6, Baso % (Auto) 1.0, Absolute Neuts (auto) 2.9,Absolute Lymphs (auto) 1.33, Nucleated RBC % 0, PT 14.0, INR 1.1, APTT 29.0, Sodium 136, Potassium 4.2, Chloride 106, Carbon Dioxide 21.7, Anion Gap 8, BUN 17, Creatinine 0.75, Estim Creat Clear Calc 57.03, Est GFR (MDRD) Non-Af 80, BUN/Creatinine Ratio 22.2 H, Glucose 95, Calcium 8.3, Troponin T High Sens 10 11/23/24 15:56: POC Glucose 98 Imaging Radiology Impression Head/Neck CTA 11/23/24 15:34 IMPRESSION: 1. No acute intracranial or cervical large vessel arterial occlusion or high-grade stenosis, no significant change from prior exam. 2. Dominant right vertebral artery with diffusely hypoplastic left vertebral artery, with moderate-advanced stenosis of the distal left V4 segment. Widely patent right vertebral artery. 3. Mild-moderate focal narrowing of the proximal basilar artery. No significantICA stenosis. 4. Mild short-segment narrowings along the left PHYLICIA A2-A3 segments. \ Reading Location: [id number] CT 11/23/24 15:36 IMPRESSION: No acute abnormality is seen. Red Alert: Chronic changes The critical information above was relayed directly by me by telephone to Arnulfo Perrin on 11/23/2024 at 3:48 pm with readback verification. Reading Location: [id number] Assessment & Plan Assessment/Plan (1) Facial paresthesia: PLAN: Plan Patient is an 79-year-old female who presented to [facility] ED on 11/23/2024 for right facial numbness/tingling. 1. Right facial numbness/tingling, CVA rule out ? Admit under observation status to PCU. Neurology consulted. Presented with right facial numbness/tingling, otherwise asymptomatic. NIH score of 1. CT brain unremarkable. CTA head/neck stable from previous. He is on aspirin, Plavix and statin as below but cannot rule out TIA/CVA. MRI brain ordered. PT/OT/case management consulted. Lipid panel, A1c and TSH ordered. Other orders placed per stroke protocol order set. 2. Asymptomatic basilar artery stenosis ? Follows with neurology as below, and was evaluated by vascular surgery in April. Was having headache like symptoms and February [address] head/neck revealed a new severe focal stenosis of the basilar artery compared to CT scan from 17 months prior. Vascular surgery noted that it appears she has asymptomatic basilar artery stenosis at this time, given no recurrent CVA/TIA symptoms. Also noted that she has no significant extracranial carotid or vertebral artery disease on imaging. Recommended continuing aspirin, Plavix andhigh intensity statin. Vascular did discuss referring her to a neurointerventional specialist at [facility] for this but she declined the referral. 3. History of STEMI and CAD with stenting, chronic heart failure with recoveredejection fraction, hypertension, hyperlipidemia, mild AV regurgitation ? Follows with cardiology, last office visit in August. NSTEMI in February 2023 with PCI to the LAD. Had elective PCI to the proximal and distal left circumflex in April 2023. She was treated with Brilinta for period of time, then was switched back to Plavix. Most recent echo in March showed EF 65%, stage I diastolic dysfunction, mild AV regurgitation, no other concerning findings. Continue home aspirin, Plavix and statin. Holding home amlodipine, atenolol and lisinopril for permissive hypertension. 4. 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 Follows with Dr. Martinez with neurology, last office visit in June. 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 Diagnosed with M?ni?re's disease in September 2015 and treated with medical management at that time with improvement; no longer on any medications for this. Noted in June that patient has some difficulty with recall but remains independent in her daily activities, so neurology felt she has mild cognitive impairment but not dementiaat this time. Depression symptoms have been fairly well-controlled. Continue home citalopram. Continue outpatient follow-up with neurology after discharge. 5. History of thyroid cancer s/p thyroidectomy ? TSH mildly elevated at 8 on admit. However, free T4 also very mildly elevatedat 1.5. Continue home Synthroid. 6. Class I obesity ? BMI 33 on admit. Encouraged lifestyle modifications. Complicates hospital course and care. DVT prophylaxis: SCDs CODE STATUS: Full code, verified Expected disposition: Home, 1 to 2 days Total clinical time spent by myself addressing the patient's medical issues, reviewing all the data, and collaborating with patient's care team: 75 minutes. Charges/Coding Visit Charges Inpatient E&M: 48964 Init Hosp L3 11/23/242017 <Electronically signed by Tad Trimble DO> Cosigner Signature (if applicable): CC: Dr. Tad Trimble DO; Dr. Elis Cardenas DO~ Signed [facility] Work Phone: [phone]) 348-249207-31-2025 History and physical note [facility] Medical Records Department [address] [place] [address] H&P Exam - Hospitalist 11/23/24 1716 MR#: [id number] Acct: [id number] Name: LILLIANA HUBER Rep #:[id number] : 1945 79 From: Tad hunter DO PCP: Dr. Elis Cardenas DO Status:ADM LINA Location: [place] [address] HPI - General General Date of Admission: 11/23/24 Date of Service: 11/23/24 Chief Complaint: Right facial numbness/tingling HPI Narrative LILLIANA HUBER, is a 79 F who presented to [facility] ED on 11/23/2024 with right facial numbness/tingling. 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 Patient lives at home with her . Today we will writing checks she statesthat her right face began to feel funny. She denied any arm or leg paresthesiasor any motor symptoms. Denied any headache. Because of her vascular history, she came in for further evaluation. In the ED she was initially hypertensive tothe 170s systolic but otherwise stable on room air at rest. CBC and BMP were benign. CT brain was unremarkable. CTA head/neck showed showed known stenosis of the proximal basilar artery and distal leftvertebral artery that were unchanged. NIH score of 1. However, given her history neurology recommended admission and MRI brain for further evaluation. Hospitalist was then contacted for admission. I saw the patient at bedside in the ED, present. Patient was sitting back comfortably in bed, in no acute distress. She was alert and oriented x 3 though she did have some tangential speech noted with answering questions for me. She reported mild right facial numbness currently, improved from earlier today. Denied any other acute concerns currently. Will be admitted for further management. [facility] Medical History Coronary artery disease Hypertension Dyslipidemia Mild cognitive impairment Ischemic cardiomyopathy Arteriosclerotic cardiovascular disease Hearing loss, left Chest pain Stroke/cerebrovascular accident Compression neuropathy of genitofemoral nerve Stress incontinence Wears hearing aid Wears glasses Post-menopausal Depression Thyroid disease Arthritis High cholesterol Non-smoker Leg cramps History of stress test History of echocardiogram Uterovaginal prolapse, incomplete TIA (transient ischemic attack) History of stroke Cancer GERD (gastroesophageal reflux disease) Menieres disease Corrales's palsy Aphthous ulcer of mouth Hypothyroidism Hyperlipidemia Benign essential hypertension Home Medications ?Medication ?Instructions ?Recorded ?Last Taken ?Type ascorbic acid (vitamin C) 500 mg 500 mg PO DAILY 05/21 Unknown History tablet (Vitamin C) cholecalciferol (vitamin D3) 125 125 mcg PO DAILY 04/27 10/16 Unknown History mcg (5,000 unit) tablet (Vitamin D3) aspirin 81 mg tablet,delayed 81 mg PO DAILY@0800 #90 t abs 03/13/23 05/12/23 Rx release Handicap Placard #1 ea 04/23/23 Unknown Rx levothyroxine 137 mcg tablet 137 mcg PO DAILY 04/23/23 Unknown History lisinopril 20 mg tablet 20 mg PO DAILY #90 tabs 09/24 11/16 Unknown Rx atorvastatin 40 mg tablet 40 mg PO QDAY #90 tabs 04/25 Unknown Rx atenolol 25 mg tablet 25 mg PO DAILY #90 tabs 07/25 08/18 Unknown Rx amlodipine 10 mg tablet 10 mg PO QDAY #90 tabs 08/24 Unknown Rx lysine 1,000 mg tablet 500 mg PO DAILY 09/26/24 Unk nown History zinc lozenges 15 mg 50 mg PO DAILY 09/26/24 Unkn own History clopidogrel 75 mg tablet 75 mg PO DAILY #90 TABLETS 0 11/08/24 Unknown Rx citalopram 10 mg tablet 10 mg PO DAILY 11/23/24 Unkn own History ticagrelor 90 mg tablet (Brilinta) 90 mg PO DAILY 10/26 05/20 Unknown History Allergy/AdvReac Type Severity Reaction Status Date / Time Sulfa (Sulfonamide Allergy Intermediate Rash Verified 11/23/24 15:20 Antibiotics) pepper (genus Capsicum) Allergy Swelling Verified 11/23/24 15:20 adhesive tape AdvReac Intermediate Rash Verified 11/23/24 15:20 Penicillins AdvReac Unknown Rash Verified 11/23/24 15:20 Family History Mother Heart disease Surgical History Stented coronary artery (05/12/23) Status post hysterectomy with oophorectomy Hx of surgical procedure H/O tubal ligation H/O dilation and curettage H/O breast biopsy Hx of colonoscopy History of thyroidectomy H/O hernia repair Social History Smoking Status: Never smoker alcohol intake: never substance use type: does not use caffeine: Yes Type: coffee Number of servings: 1 seatbelt use: always do you feel safe at home: Yes additional social history: - [place] ROS Constitutional Constitutional: Denies chills, fatigue, fever(s) or weakness Eyes Eyes: Denies change in vision Cardiovascular Cardiovascular: Denies chest pain Respiratory/Chest Respiratory/Chest: Denies shortness of breath at rest Gastrointestinal Gastrointestinal: Denies abdominal pain Neurologic Neurologic: Reports numbness and tingling; Denies abnormal speech, confusion, dizziness, focal weakness or headache(s) Vital Signs Vital Signs Vital Signs: 11/23/24 15:18 11/23/24 15:57 11/23/24 15:57 Temperature 98.2 F Temperature Source Oral Pulse Rate 69 55 L Respiratory Rate 18 12 Blood Pressure 179/70 H 105/66 Blood Pressure Mean 106 79 Pulse Ox 99 97 Oxygen Delivery Method Room Air Room Air Room Air 11/23/24 16:03 11/23/24 16:18 11/23/24 16:30 Temperature Temperature Source Pulse Rate 55 L 60 61 Respiratory Rate 16 14 16 Blood Pressure 105/66 139/64 H 154/80 H Blood Pressure Mean 79 89 104 Pulse Ox 97 98 97 Oxygen Delivery Method Room Air Room Air Room Air 11/23/24 17:00 11/23/24 17:06 Temperature Temperature Source Pulse Rate 62 62 Respiratory Rate 15 15 Blood Pressure 131/62 H 131/62 H Blood Pressure Mean 85 85 Pulse Ox 96 96 Oxygen Delivery Method Room Air Room Air Weight Weight: 88.6 kg Body Mass Index (BMI) 35.7 Physical Exam Const alert, oriented x3 and no apparent distress Constitutional Narrative: Elderly female, class I obesity, alert and oriented x 3 but mild tangential speech noted with answering questions, otherwise sitting back comfortably in bedand in no acute distress. General Appearance: cooperative and comfortable HEENT normocephalic, head/scalp atraumatic, hearing grossly normal bilaterally, nasal mucous membranes and turbinates normal and moist oral mucous membranes Eyes PERRL, EOMs intact bilaterally and conjunctivae normal Neck full ROM Chest inspection of chest normal Resp normal respiratory effort, normal air movement, no use of accessory muscles and clear to auscultation bilaterally Cardio regular rate, regular rhythm, no murmurs and peripheral pulses 2+ throughout GI normal to inspection, nondistended, normoactive bowel sounds, soft to palpation,non-tender and non-distended Back/Spine normal ROM Extremity normal to inspection, full ROM and no pedal edema Skin no rashes or lesions noted Neuro moves all extremities and no focal motor deficits Neuro Narrative: Chronic left facial droop noted. No right facial droop. Speech: speech normal Motor Exam: strength 5/5 throughout Psych mental status grossly normal Results Lab / Micro Data 11/23/24 15:50 11/23/24 15:50 Labs: Laboratory Results - last 24 hr 11/23/24 15:50: WBC 5.0, RBC 3.80 L, Hgb 11.8 L, Hct 34.6 L, MCV 91.1, MCH 31.1,MCHC 34.1, RDW Std Deviation 42.8, RDW Coeff of Jennifer 13.0, Plt Count 179, MPV 9.1, Immature Gran % (Auto) 0.800, Neut % (Auto) 57.1, Lymph % (Auto) 26.5, [place]% (Auto) 11.0 H, Eos % (Auto) 3.6, Baso % (Auto) 1.0, AbsoluteNeuts (auto) 2.9,Absolute Lymphs (auto) 1.33, Nucleated RBC % 0, PT 14.0, INR 1.1, APTT 29.0, Sodium 136, Potassium 4.2, Chloride 106, Carbon Dioxide 21.7, Anion Gap 8, BUN 17, Creatinine 0.75, EstimCreat Clear Calc 57.03, Est GFR (MDRD) Non-Af 80, BUN/Creatinine Ratio 22.2 H, Glucose 95, Calcium 8.3, Troponin T High Sens 10 11/23/24 15:56: POC Glucose 98 Imaging Radiology Impression Head/Neck CTA 11/23/24 15:34 IMPRESSION: 1. No acute intracranial or cervical large vessel arterial occlusion or high- grade stenosis, no significant change from prior exam. 2. Dominant right vertebral artery with diffusely hypoplastic left vertebral artery, with moderate-advanced stenosis of the distal left V4 segment. Widely patent right vertebral artery. 3. Mild-moderate focal narrowing of the proximal basilar artery. No significantICA stenosis. 4. Mild short-segment narrowings along the left PHYLICIA A2-A3 segments. \ Reading Location: [id number] Brain CT 11/23/24 15:36 IMPRESSION: No acute abnormality is seen. Red Alert: Chronic changes The critical information above was relayed directly by me by telephone to Arnulfo Perrin on 11/23/2024 at 3:48 pm with readback verification. Reading Location: [id number] Assessment & Plan Assessment/Plan (1) Facial paresthesia: PLAN: Plan Patient is an 79-year-old female who presented to [facility] ED on 11/23/2024 for right facial numbness/tingling. 1. Right facial numbness/tingling, CVA rule out ? Admit under observation status to PCU. Neurology consulted. Presented with right facial numbness/tingling, otherwise asymptomatic. NIH score of 1. CT brain unremarkable. CTA head/neck stable from previous. He is on aspirin, Plavix and statin as below but cannot rule out TIA/CVA. MRI brain ordered. PT/OT/case management consulted. Lipid panel, A1c and TSH ordered. Other orders placed per stroke protocol order set. 2. Asymptomatic basilar artery stenosis ? Follows with neurology as below, and was evaluated by vascular surgery in April. Was having headache like symptoms and February [address] head/neck revealed a new severe focal stenosis of the basilar artery compared to CT scan from 17 months prior. Vascular surgery noted that it appears she has asymptomatic basilar artery stenosis at this time, given no recurrent CVA/TIA symptoms. Also noted that she has no significant extracranial carotid or vertebral artery disease on imaging. Recommended continuing aspirin, Plavix andhigh intensity statin. Vascular did discuss referring her to a neuro interventional specialist at [facility] for this but she declined the referral. 3. History of STEMI and CAD with stenting, chronic heart failure with recoveredejection fraction, hypertension, hyperlipidemia, mild AV regurgitation ? Follows with cardiology, last office visit in August. NSTEMI in February 2023 with PCI to the LAD. Had elective PCI to the proximal and distal left circumflex in April 2023. She was treated with Brilinta for period of time, then was switched back to Plavix. Most recent echo in March showed EF 65%, stage I diastolic dysfunction, mild AV regurgitation, no other concerning findings. Continue home aspirin, Plavix and statin. Holding home amlodipine, atenolol and lisinopril for permissive hypertension. 4. 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 Follows with Dr. Martinez with neurology, last office visit in June. History of left Corrales's palsydiagnosed in August 2015, has residual left facial droop and left-sided hearing loss for which she uses a hearing aid. Diagnosed with M?ni?re's disease in September 2015 and treated with medical management at that time with improvement; no longer on any medications for this. Noted in June that patient hassome difficulty with recall but remains independent in her daily activities, so neurology felt she has mild cognitive impairment but not dementiaat this time. Depression symptoms have been fairly well-controlled. Continue home citalopram. Continue outpatient follow-up with neurology after discharge. 5. History of thyroid cancer s/p thyroidectomy ? TSH mildly elevated at 8 on admit. However, free T4 also very mildly elevatedat 1.5. Continue home Synthroid. 6. Class I obesity ? BMI 33 on admit. Encouraged lifestyle modifications. Complicates hospital course and care. DVT prophylaxis: SCDs CODE STATUS: Full code, verified Expected disposition: Home, 1 to 2 days Total clinical time spent by myself addressing the patient's medical issues, reviewing all the data, and collaborating with patient's care team: 75 minutes. Charges/Coding Visit Charges Inpatient E&M: 09849 Init Hosp L3 11/23/242017 Cosigner Signature (if applicable): CC: Dr. Tad Trimble, ; Dr. Elis Cardenas DO~ Signed [facility]07-31-2025 Discharge summary Author Arnulfo Perrin [facility] Note Date/Time November 23, 2024 5:20 pm [facility] Medical Records Department [address] [place] [address] Emergency Department Summary 11/23/24 MR#: [id number] Acct: [id number] Name: LILLIANA HUBER Rep #:[id number] : 1945 79 From: Arnulfo Perrin MD PCP: Dr. Elis Cardenas DO Status:REG ER Location: ED HPI History of Present Illness Chief Complaint: Neuro S/Sx Narrative Narrative: 79-year-old female past medical history of previous stroke with residual facial asymmetry on the left side presents with hazy feeling of her right face. She states this started approximately an hour prior to arrival. 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 She denies any headaches. No paresthesias of arms or legs. She states that she was going to lay down for a nap to see if this feeling improved, but with her history of stroke, decided against it. She states she takes a blood thinner but cannot recall which one, but states Plavix sounds familiar to her. She denies taking Eliquis or Xarelto. No exacerbating or alleviating factors. [facility] Medical History Coronary artery disease Hypertension Dyslipidemia Mild cognitive impairment Ischemic cardiomyopathy Arteriosclerotic cardiovascular disease Hearing loss, left Chest pain Stroke/cerebrovascular accident Compression neuropathy of genitofemoral nerve Stress incontinence Wears hearing aid Wears glasses Post-menopausal Depression Thyroid disease Arthritis High cholesterol Non-smoker Leg cramps History of stress test History of echocardiogram Uterovaginal prolapse, incomplete TIA (transient ischemic attack) History of stroke Cancer GERD (gastroesophageal reflux disease) Menieres disease Corrales's palsy Aphthous ulcer of mouth Hypothyroidism Hyperlipidemia Benign essential hypertension Home Medications ?Medication ?Instructions ?Recorded ?Last Taken ?Type ascorbic acid (vitamin C) 500 mg 500 mg PO DAILY 05/21 Unknown History tablet (Vitamin C) cholecalciferol (vitamin D3) 125 125 mcg PO DAILY 04/27 10/16 Unknown History mcg (5,000 unit) tablet (Vitamin D3) aspirin 81 mg tablet,delayed 81 mg PO DAILY@0800 #90 t abs 03/13/23 05/12/23 Rx release Handicap Placard #1 ea 04/23/23 Unknown Rx levothyroxine 137 mcg tablet 137 mcg PO DAILY 04/23/23 Unknown History lisinopril 20 mg tablet 20 mg PO DAILY #90 tabs 09/24 11/16 Unknown Rx atorvastatin 40 mg tablet 40 mg PO QDAY #90 tabs 04/25 Unknown Rx atenolol 25 mg tablet 25 mg PO DAILY #90 tabs 07/25 08/18 Unknown Rx amlodipine 10 mg tablet 10 mg PO QDAY #90 tabs 08/24 Unknown Rx lysine 1,000 mg tablet 500 mg PO DAILY 09/26/24 Unk nown History zinc lozenges 15 mg 50 mg PO DAILY 09/26/24 Unkn own History clopidogrel 75 mg tablet 75 mg PO DAILY #90 TABLETS 0 11/08/24 Unknown Rx citalopram 10 mg tablet 10 mg PO DAILY 11/23/24 Unkn own History ticagrelor 90 mg tablet (Brilinta) 90 mg PO DAILY 10/26 05/20 Unknown History Allergy/AdvReac Type Severity Reaction Status Date / Time Sulfa (Sulfonamide Allergy Intermediate Rash Verified 11/23/24 15:20 Antibiotics) pepper (genus Capsicum) Allergy Swelling Verified 11/23/24 15:20 adhesive tape AdvReac Intermediate Rash Verified 11/23/24 15:20 Penicillins AdvReac Unknown Rash Verified 11/23/24 15:20 Family History Mother Heart disease Surgical History Stented coronary artery (05/12/23) Status post hysterectomy with oophorectomy Hx of surgical procedure H/O tubal ligation H/O dilation and curettage H/O breast biopsy Hx of colonoscopy History of thyroidectomy H/O hernia repair Social History Smoking Status: Never smoker alcohol intake: never substance use type: does not use caffeine: Yes Type: coffee Number of servings: 1 seatbelt use: always do you feel safe at home: Yes additional social history: - [place] ROS ROS ED ROS Narrative Review of systems positive for strange feeling of right face as described by patient. No paresthesias of arms or legs. No headache. No chest pain or shortness of breath or other symptoms. EXAM Physical Exam Narrative Exam Narrative: Afebrile. Vital signs noted. Nontoxic-appearing. Cardiovascular examination feels regular rate and rhythm. Lungs are clear to auscultation bilaterally. Abdomen is soft and nontender with positive bowel sounds. Neurological examination shows chronic left-sided facial asymmetry/facial droop. NIH stroke scale 1 for this, but no right-sided facial droop. Const Vital Signs: 11/23/24 15:18 11/23/24 15:57 11/23/24 15:57 Temperature 98.2 F Temperature Source Oral Pulse Rate 69 55 L Respiratory Rate 18 12 Blood Pressure 179/70 H 105/66 Blood Pressure Mean 106 79 Pulse Ox 99 97 Oxygen Delivery Method Room Air Room Air Room Air 11/23/24 16:03 11/23/24 16:18 11/23/24 16:30 Temperature Temperature Source Pulse Rate 55 L 60 61 Respiratory Rate 16 14 16 Blood Pressure 105/66 139/64 H 154/80 H Blood Pressure Mean 79 89 104 Pulse Ox 97 98 97 Oxygen Delivery Method Room Air Room Air Room Air 11/23/24 17:00 11/23/24 17:06 Temperature Temperature Source Pulse Rate 62 62 Respiratory Rate 15 15 Blood Pressure 131/62 H 131/62 H Blood Pressure Mean 85 85 Pulse Ox 96 96 Oxygen Delivery Method Room Air Room Air MDM MDM MDM Narrative Medical decision making narrative: Differential diagnosis includes but not limited to TIA versus Corrales's palsy versus stroke versus hypertensive emergency. Upon repeat examination after telestroke review, patient denies headaches continually so complex migraine is less likely. Additionally, she states that her symptoms are improving if not resolved. EKG was obtained and interpreted by myself independently as sinus bradycardia at57 bpm without ectopy or acute ST changes. No STEMI. I reviewed the radiology report and spoke with the radiologist regarding the brain CT which shows no acute abnormality. In discussion with telestroke neurologist, delmer DOMINIQUE because she does not have a debilitating deficit, CTA will be performed and reviewed as well. She suggestedobservation for MRI given previous history of stroke. Basic laboratory work still pending. I reviewed the radiology report of the CTA and there is no large vessel occlusion. I reviewed her laboratory work and she has normal white count of 5.0with hemoglobin 11.8, hematocrit 34.6, platelet count 179. INR 1.1 with a PTT 29. BMP grossly unremarkable. [id number] glucose 98. High-sensitivity troponin is 10. Patient discussed with Dr. Trimble for observation on the PCU. Disposition isassigned observation. Patient is in stable condition. History & Record Review Discussion w/independent historian: Patient Additional record(s) reviewed:: Prior ED visit Lab Data Attestation: I reviewed the patient's lab results. Labs: Laboratory Results - last 24 hr 11/23/24 11/23/24 15:50 15:56 WBC 5.0 RBC 3.80 L Hgb 11.8 L Hct 34.6 L MCV 91.1 MCH 31.1 MCHC 34.1 RDW Std Deviation 42.8 RDW Coeff of Jennifer 13.0 Plt Count 179 MPV 9.1 Immature Gran % (Auto) 0.800 Neut % (Auto) 57.1 Lymph % (Auto) 26.5 [place] % (Auto) 11.0 H Eos % (Auto) 3.6 Baso % (Auto) 1.0 Absolute Neuts (auto) 2.9 Absolute Lymphs (auto) 1.33 Nucleated RBC % 0 PT 14.0 INR 1.1 APTT 29.0 Sodium 136 Potassium 4.2 Chloride 106 Carbon Dioxide 21.7 Anion Gap 8 BUN 17 Creatinine 0.75 Estim Creat Clear Calc 57.03 Est GFR (MDRD) Non-Af 80 BUN/Creatinine Ratio 22.2 H Glucose 95 Calcium 8.3 Troponin T High Sens 10 POC Glucose 98 Radiography Diagnostic Testing: Clinical Impression(s) from Imaging Studies Head/Neck CTA 11/23/24 15:34 IMPRESSION: 1. No acute intracranial or cervical large vessel arterial occlusion or high- grade stenosis, no significant change from prior exam. 2. Dominant right vertebral artery with diffusely hypoplastic left vertebral artery, with moderate-advanced stenosis of the distal left V4 segment. Widely patent right vertebral artery. 3. Mild-moderate focal narrowing of the proximal basilar artery. No significantICA stenosis. 4. Mild short-segment narrowings along the left PHYLICIA A2-A3 segments. \ Reading Location: [id number] Brain CT 11/23/24 15:36 IMPRESSION: No acute abnormality is seen. Red Alert: Chronic changes The critical information above was relayed directly by me by telephone to Arnulfo Perrin on 11/23/2024 at 3:48 pm with readback verification. Reading Location: [id number] Discharge Plan Dx/Rx/DC Orders Clinical Impression: Weakness on right side of face, History of stroke, Facial paresthesia Disposition Disposition: Acute Care Hospital [facility] NIHSS NIHSS 1a. Level of Consciousness: 0 - Alert; keenly responsive 1b. LOC Questions: 0 - Answers BOTH questions correctly 1c. LOC Commands: 0 - Performs BOTH tasks correctly 2. Best Gaze: 0 - Normal 3. Visual: 0 - No visual loss 4. Facial Palsy: 1 - Minor paralysis (flattened nasolabial fold, asymmetry on smiling) (Left, chronic) 5a. Left Arm: 0 - No drift; arm holds 90 (or 45) degrees for full 10 seconds 5b. Right Arm: 0 - No drift; arm holds 90 (or 45) degrees for full 10 seconds 6a. Left Le - No drift; leg holds 30-degree position for full 5 seconds 6b. Right Le - No drift; leg holds 30-degree position for full 5 seconds 7. Limb Ataxia: 0 - Absent 8. Sensory: 0 - Normal; no sensory loss 9. Best Language: 0 - No aphasia; normal 10. Dysarthria: 0 - Normal 11. Extinction and Inattention: 0 - No abnormality Total: 1 Stroke Questions Stroke Team Activated: Yes Reviewed Inclusion/Exclusion criteria: Yes IV Thrombolytic Administered: No No contraindications from thrombolytic administration: No (No debilitating deficit.) What to do if you have Problems For any increased pain, shortness of breath, bleeding, nausea or vomiting, chestpain, or any unexpected problems, contact your Primary Care Provider. Call [facility] ([phone]) or report to the closest Emergency Room. Call 911 if necessary. 11/23/24 1720 <Electronically signed by Arnulfo Perrin MD> Cosigner Signature (if applicable): CC: Dr. Elis Cardenas, DO ~ Signed [facility] Work Phone: [phone] 364-346807-31-2025 Discharge summary [facility] Medical Records Department [address] [place] [address] Emergency Department Summary 11/23/24 MR#: [id number] Acct: [id number] Name: LILLIANA HUBER Rep #:[id number] : 1945 79 From: Arnulfo Perrin MD PCP: Dr. Elis Cardenas, Status:REG ER Location: ED HPI History of Present Illness Chief Complaint: Neuro S/Sx Narrative Narrative: 79-year-old female past medical history of previous stroke with residual facial asymmetry on the left side presents with hazy feeling of her right face. She states this started approximately an hour prior to arrival. 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 She denies anyheadaches. No paresthesias of arms or legs. She states that she was going to lay down for a nap to see if this feeling improved, but with her history of stroke, decided against it. She states she takes a blood thinner but cannot recall which one, but states Plavix sounds familiar to her. She deniestaking Eliquis or Xarelto. No exacerbating or alleviating factors. [facility] Medical History Coronary artery disease Hypertension Dyslipidemia Mild cognitive impairment Ischemic cardiomyopathy Arteriosclerotic cardiovascular disease Hearing loss, left Chest pain Stroke/cerebrovascular accident Compression neuropathy of genitofemoral nerve Stress incontinence Wears hearing aid Wears glasses Post-menopausal Depression Thyroid disease Arthritis High cholesterol Non-smoker Leg cramps History of stress test History of echocardiogram Uterovaginal prolapse, incomplete TIA (transient ischemic attack) History of stroke Cancer GERD (gastroesophageal reflux disease) Menieres disease Corrales's palsy Aphthous ulcer of mouth Hypothyroidism Hyperlipidemia Benign essential hypertension Home Medications ?Medication ?Instructions ?Recorded ?Last Taken ?Type ascorbic acid (vitamin C) 500 mg 500 mg PO DAILY 05/21 Unknown History tablet (Vitamin C) cholecalciferol (vitamin D3) 125 125 mcg PO DAILY 04/27 10/16 Unknown History mcg (5,000 unit) tablet (Vitamin D3) aspirin 81 mg tablet,delayed 81 mg PO DAILY@0800 #90 t abs 03/13/23 05/12/23 Rx release Handicap Mamtaard #1 ea 04/23/23 Unknown Rx levothyroxine 137 mcg tablet 137 mcg PO DAILY 04/23/23 Unknown History lisinopril 20 mg tablet 20 mg PO DAILY #90 tabs 09/24 11/16 Unknown Rx atorvastatin 40 mg tablet 40 mg PO QDAY #90 tabs 04/25 Unknown Rx atenolol 25 mg tablet 25 mg PO DAILY #90 tabs 07/25 08/18 Unknown Rx amlodipine 10 mg tablet 10 mg PO QDAY #90 tabs 08/24 Unknown Rx lysine 1,000 mg tablet 500 mg PO DAILY 09/26/24 Unk nown History zinc lozenges 15 mg 50 mg PO DAILY 09/26/24 Unkn own History clopidogrel 75 mg tablet 75 mg PO DAILY #90 TABLETS 0 11/08/24 Unknown Rx citalopram 10 mg tablet 10 mg PO DAILY 11/23/24 Unkn own History ticagrelor 90 mg tablet (Brilinta) 90 mg PO DAILY 10/26 05/20 Unknown History Allergy/AdvReac Type Severity Reaction Status Date / Time Sulfa (Sulfonamide Allergy Intermediate Rash Verified 11/23/24 15:20 Antibiotics) pepper (genus Capsicum) Allergy Swelling Verified 11/23/24 15:20 adhesive tape AdvReac Intermediate Rash Verified 11/23/24 15:20 Penicillins AdvReac Unknown Rash Verified 11/23/24 15:20 Family History Mother Heart disease Surgical History Stented coronary artery (05/12/23) Status post hysterectomy with oophorectomy Hx of surgical procedure H/O tubal ligation H/O dilation and curettage H/O breast biopsy Hx of colonoscopy History of thyroidectomy H/O hernia repair Social History Smoking Status: Never smoker alcohol intake: never substance use type: does not use caffeine: Yes Type: coffee Number of servings: 1 seatbelt use: always do you feel safe at home: Yes additional social history: - [place] ROS ROS ED ROS Narrative Review of systems positive for strange feeling of right face as described by patient. No paresthesias of arms or legs. No headache. No chest pain or shortness of breath or other symptoms. EXAM Physical Exam Narrative Exam Narrative: Afebrile. Vital signs noted. Nontoxic-appearing. Cardiovascular examination feels regular rate and rhythm. Lungs are clear to auscultation bilaterally. Abdomen is soft and nontender with positive bowel sounds. Neurological examination shows chronic left-sided facial asymmetry/facial droop. NIH stroke scale 1 for this, but no right-sided facial droop. Const Vital Signs: 11/23/24 15:18 11/23/24 15:57 11/23/24 15:57 Temperature 98.2 F Temperature Source Oral Pulse Rate 69 55 L Respiratory Rate 18 12 Blood Pressure 179/70 H 105/66 Blood Pressure Mean 106 79 Pulse Ox 99 97 Oxygen Delivery Method Room Air Room Air Room Air 11/23/24 16:03 11/23/24 16:18 11/23/24 16:30 Temperature Temperature Source Pulse Rate 55 L 60 61 Respiratory Rate 16 14 16 Blood Pressure 105/66 139/64 H 154/80 H Blood Pressure Mean 79 89 104 Pulse Ox 97 98 97 Oxygen Delivery Method Room Air Room Air Room Air 11/23/24 17:00 11/23/24 17:06 Temperature Temperature Source Pulse Rate 62 62 Respiratory Rate 15 15 Blood Pressure 131/62 H 131/62 H Blood Pressure Mean 85 85 Pulse Ox 96 96 Oxygen Delivery Method Room Air Room Air MDM MDM MDM Narrative Medical decision making narrative: Differential diagnosis includes but not limited to TIA versus Corrales's palsy versus stroke versus hypertensive emergency. Upon repeat examination after telestroke review, patient denies headaches continually so complex migraine is less likely. Additionally, she states that her symptoms are improving if not resolved. EKG was obtained and interpreted by myself independently as sinus bradycardia at57 bpm without ectopy or acute ST changes. No STEMI. I reviewed the radiology report and spoke with the radiologist regarding the brain CT which shows no acute abnormality. In discussion with telestroke neurologist, delmer DOMINIQUE because she does not have a debilitating deficit,CTA will be performed and reviewed as well. She suggestedobservation for MRI given previous historyof stroke. Basic laboratory work still pending. I reviewed the radiology report of the CTA and there is no large vessel occlusion. I reviewed her laboratory work and she has normal white count of 5.0with hemoglobin 11.8, hematocrit 34.6, platelet count 179. INR 1.1 with a PTT 29. BMP grossly unremarkable. Clmno-fk-deli glucose 98. High-sensitivity troponin is 10. Patient discussed with Dr. Trimble for observation on the PCU. Disposition isassigned observation. Patient is in stable condition. History & Record Review Discussion w/independent historian: Patient Additional record(s) reviewed:: Prior ED visit Lab Data Attestation: I reviewed the patient's lab results. Labs: Laboratory Results - last 24 hr 11/23/24 11/23/24 15:50 15:56 WBC 5.0 RBC 3.80 L Hgb 11.8 L Hct 34.6 L MCV 91.1 MCH 31.1 MCHC 34.1 RDW Std Deviation 42.8 RDW Coeff of Jennifer 13.0 Plt Count 179 MPV 9.1 Immature Gran % (Auto) 0.800 Neut % (Auto) 57.1 Lymph % (Auto) 26.5 [place] % (Auto) 11.0 H Eos % (Auto) 3.6 Baso % (Auto) 1.0 Absolute Neuts (auto) 2.9 Absolute Lymphs (auto) 1.33 Nucleated RBC % 0 PT 14.0 INR 1.1 APTT 29.0 Sodium 136 Potassium 4.2 Chloride 106 Carbon Dioxide 21.7 Anion Gap 8 BUN 17 Creatinine 0.75 Estim Creat Clear Calc 57.03 Est GFR (MDRD) Non-Af 80 BUN/Creatinine Ratio 22.2 H Glucose 95 Calcium 8.3 Troponin T High Sens 10 POC Glucose 98 Radiography Diagnostic Testing: Clinical Impression(s) from Imaging Studies Head/Neck CTA 11/23/24 15:34 IMPRESSION: 1. No acute intracranial or cervical large vessel arterial occlusion or high- grade stenosis, no significant change from prior exam. 2. Dominant right vertebral artery with diffusely hypoplastic left vertebral artery, with moderate-advanced stenosis of the distal left V4 segment. Widely patent right vertebral artery. 3. Mild-moderate focal narrowing of the proximal basilar artery. No significantICA stenosis. 4. Mild short-segment narrowings along the left PHYLICIA A2-A3 segments. \ Reading Location: [id number] Brain CT 11/23/24 15:36 IMPRESSION: No acute abnormality is seen. Red Alert: Chronic changes The critical information above was relayed directly by me by telephone to Arnulfo Perrin on 11/23/2024 at 3:48 pm with readback verification. Reading Location: [id number] Discharge Plan Dx/Rx/DC Orders Clinical Impression: Weakness on right side of face, History of stroke, Facial paresthesia Disposition Disposition: Acute Care Hospital [facility] NIHSS NIHSS 1a. Level of Consciousness: 0 - Alert; keenly responsive 1b. LOC Questions: 0 - Answers BOTH questions correctly 1c. LOC Commands: 0 - Performs BOTH tasks correctly 2. Best Gaze: 0 - Normal 3. Visual: 0 - No visual loss 4. Facial Palsy: 1 - Minor paralysis (flattened nasolabial fold, asymmetry on smiling) (Left, chronic) 5a. Left Arm: 0 - No drift; arm holds 90 (or 45) degrees for full 10 seconds 5b. Right Arm: 0 - No drift; arm holds 90 (or 45) degrees for full 10 seconds 6a. Left Le - No drift; leg holds 30-degree position for full 5 seconds 6b. Right Le - No drift; leg holds 30-degree position for full 5 seconds 7. Limb Ataxia: 0 - Absent 8. Sensory: 0 - Normal; no sensory loss 9. Best Language: 0 - No aphasia; normal 10. Dysarthria: 0 - Normal 11. Extinction and Inattention: 0 - No abnormality Total: 1 Stroke Questions Stroke Team Activated: Yes Reviewed Inclusion/Exclusion criteria: Yes IV Thrombolytic Administered: No No contraindications from thrombolytic administration: No (No debilitating deficit.) What to do if you have Problems For any increased pain, shortness of breath, bleeding, nausea or vomiting, chestpain, or any unexpected problems, contact your Primary Care Provider. Call [facility] ([phone]) or report tothe closest Emergency Room. Call 911 if necessary. 11/23/24 1720 Cosigner Signature (if applicable): CC: Dr. Elis Cardenas, DO ~ Signed [facility]07-31-2025 Radiology Diagnostic study note [facility] Imaging Services [address] [place] [address] STROKE CTA Head AND Neck W/Con MR#: [id number] Acct: [id number] Name: LILLIANA HUBER Rep #: [id number] : 1945 F 79 From: Israel Almanzar MD PCP: Dr. Elis Cardenas, DO Status: REG ER Study:STROKE CTA Head AND Neck W/Con Date of Exam: 11/23/24 Exam# [id number] Ordering Dr: Arnulfo Perrin MD PROCEDURE: STROKE CTA HEAD AND NECK W/CON 11/23/2024 REASON FOR EXAM: NEURO DEFICIT, ACUTE, STROKE SUSPECTED TECHNIQUE: STROKE CTA HEAD AND NECK W/CON Multiplanar Sagittal and Coronal images were obtained. 3D post processing was performed. CONTRAST: Isovue 370 VOLUME: 100 mL One or more dose reduction techniques were used (e.g., Automated exposure control, adjustment of the mA and/or kV according to patient size, use of iterative reconstruction technique). RADIATION DOSE SUMMARY: DLP: 789.21 mGycm COMPARISON: CTA head/neck exams dated 10/21/2022, 05/02/2024. FINDINGS: CTA HEAD: Patent intracranial arterial vasculature. No large vessel occlusion, high-grade flow-limiting stenosis, saccular aneurysm, or vascular malformation identified. origin of the right DIRECTOR OF ASSESSING with diminutive/hypoplastic connection to the basilar artery, a normal anatomic variant. Unchanged mild short-segment narrowings along the leftACA proximal A2 and more distal A3 segment/pericallosal artery. Focal calcified atherosclerotic plaque along the right MCA mid M1 segment with no significant stenosis. CTA NECK: Left vertebral artery originates directly from the aortic arch. Bilateral cervical carotid and vertebral arteries are patent. No aneurysm or dissection. Dominant right vertebral artery with diffusely hypoplastic left vertebral artery. Moderate-advanced stenosis at the distal left vertebral artery V4 segment, unchanged. Atherosclerotic plaque along the dominant right vertebral artery distal V4 segment without significant luminal narrowing. Mild-moderate short-segment stenosis of the proximal basilar artery, unchanged. Mild atheromatous plaque at the bilateral carotid artery bifurcations and along the carotid siphons without any significant luminal narrowing of the ICAs on either side. CT/STROKE CTA Head AND Neck W/Con IMPRESSION: 1. No acute intracranial or cervical large vessel arterial occlusion or high- grade stenosis, no significant change from prior exam. 2. Dominant right vertebral artery with diffusely hypoplastic left vertebral artery, with moderate-advanced stenosis of the distal left V4 segment. Widely patent right vertebral artery. 3. Mild-moderate focal narrowing of the proximal basilar artery. No significantICA stenosis. 4. Mild short-segment narrowings along the left PHYLICIA A2-A3 segments. \ Reading Location: [id number] CC: Dr. Arnulfo Perrin MD; Dr. Elis Cardenas DO ~ Enamel Dipper: Signed [facility]07-31-2025 Radiology Diagnostic study note [facility] Imaging Services [address] [place], [place] [address] STROKE Brain/Head without Cont MR#: [id number] Acct: [id number] Name: LILLIANA HUBER Rep #: [id number] : 1945 F 79 From: Roger Holland MD PCP: Dr. Elis Cardenas DO Status: REG ER Study:STROKE Brain/Head without Cont Date of Exam: 11/23/24 Exam# [id number] Ordering Dr: Arnulfo Perrin MD PROCEDURE: STROKE BRAIN/HEAD WITHOUT CONT 11/23/2024 REASON FOR EXAM: NEURO DEFICIT, ACUTE, STROKE SUSPECTED TECHNIQUE: STROKE BRAIN/HEAD WITHOUT CONT Coronal and Sagittal reconstruction series were provided. One or more dose reduction techniques were used (e.g., Automated exposure control, adjustment of the mA and/or kV according to patient size, use of iterative reconstruction technique. RADIATION DOSE SUMMARY: CTDlvol: 44.99 mGy DLP: 863.6 mGycm COMPARISON: Prior study dated March 15, 2024. FINDINGS: Brain: Low density in the periventricular white matter suggests mild chronic small vessel ischemic changes. 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 CSF Spaces: Mild generalized cerebral atrophy Sinuses/Mastoids: Clear at visualized levels Bones: Unremarkable Atherosclerotic calcification of the cavernous portions of the internal carotid arteries bilaterally. CT/STROKE Brain/Head without Cont IMPRESSION: No acute abnormality is seen. Red Alert: Chronic changes The critical information above was relayed directly by me by telephone to Arnulfo Perrin on 11/23/2024 at 3:48 pm with readback verification. Reading Location: [id number] CC: Dr. Arnulfo Perrin MD; Dr. Elis Cardenas DO ~ Enamel Dipper: Signed [facility]07-31-2025 Discharge summary Author Arnulfo Perrin [facility] Note Date/Time November 23, 2024 5:20 pm [facility] Medical Records Department [address] [place] [address] Emergency Department Summary 11/23/24 MR#: [id number] Acct: [id number] Name: LILLIANA HUBER Rep #:[id number] : 1945 79 From: Arnulfo Perrin MD PCP: Dr. Elis Cardenas DO Status:REG ER Location: ED HPI History of Present Illness Chief Complaint: Neuro S/Sx Narrative Narrative: 79-year-old female past medical history of previous stroke with residual facial asymmetry on the left side presents with hazy feeling of her right face. She states this started approximately an hour prior to arrival. 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 She denies any headaches. No paresthesias of arms or legs. She states that she was going to lay down for a nap to see if this feeling improved, but with her history of stroke, decided against it. She states she takes a blood thinner but cannot recall which one, but states Plavix sounds familiar to her. She denies taking Eliquis or Xarelto. No exacerbating or alleviating factors. [facility] Medical History Coronary artery disease Hypertension Dyslipidemia Mild cognitive impairment Ischemic cardiomyopathy Arteriosclerotic cardiovascular disease Hearing loss, left Chest pain Stroke/cerebrovascular accident Compression neuropathy of genitofemoral nerve Stress incontinence Wears hearing aid Wears glasses Post-menopausal Depression Thyroid disease Arthritis High cholesterol Non-smoker Leg cramps History of stress test History of echocardiogram Uterovaginal prolapse, incomplete TIA (transient ischemic attack) History of stroke Cancer GERD (gastroesophageal reflux disease) Menieres disease Corrales's palsy Aphthous ulcer of mouth Hypothyroidism Hyperlipidemia Benign essential hypertension Home Medications ?Medication ?Instructions ?Recorded ?Last Taken ?Type ascorbic acid (vitamin C) 500 mg 500 mg PO DAILY 05/21 Unknown History tablet (Vitamin C) cholecalciferol (vitamin D3) 125 125 mcg PO DAILY 04/27 10/16 Unknown History mcg (5,000 unit) tablet (Vitamin D3) aspirin 81 mg tablet,delayed 81 mg PO DAILY@0800 #90 t abs 03/13/23 05/12/23 Rx release Handicap Placard #1 ea 04/23/23 Unknown Rx levothyroxine 137 mcg tablet 137 mcg PO DAILY 04/23/23 Unknown History lisinopril 20 mg tablet 20 mg PO DAILY #90 tabs 09/24 11/16 Unknown Rx atorvastatin 40 mg tablet 40 mg PO QDAY #90 tabs 04/25 Unknown Rx atenolol 25 mg tablet 25 mg PO DAILY #90 tabs 07/25 08/18 Unknown Rx amlodipine 10 mg tablet 10 mg PO QDAY #90 tabs 08/24 Unknown Rx lysine 1,000 mg tablet 500 mg PO DAILY 09/26/24 Unk nown History zinc lozenges 15 mg 50 mg PO DAILY 09/26/24 Unkn own History clopidogrel 75 mg tablet 75 mg PO DAILY #90 TABLETS 0 11/08/24 Unknown Rx citalopram 10 mg tablet 10 mg PO DAILY 11/23/24 Unkn own History ticagrelor 90 mg tablet (Brilinta) 90 mg PO DAILY 10/26 05/20 Unknown History Allergy/AdvReac Type Severity Reaction Status Date / Time Sulfa (Sulfonamide Allergy Intermediate Rash Verified 11/23/24 15:20 Antibiotics) pepper (genus Capsicum) Allergy Swelling Verified 11/23/24 15:20 adhesive tape AdvReac Intermediate Rash Verified 11/23/24 15:20 Penicillins AdvReac Unknown Rash Verified 11/23/24 15:20 Family History Mother Heart disease Surgical History Stented coronary artery (05/12/23) Status post hysterectomy with oophorectomy Hx of surgical procedure H/O tubal ligation H/O dilation and curettage H/O breast biopsy Hx of colonoscopy History of thyroidectomy H/O hernia repair Social History Smoking Status: Never smoker alcohol intake: never substance use type: does not use caffeine: Yes Type: coffee Number of servings: 1 seatbelt use: always do you feel safe at home: Yes additional social history: - [place] ROS ROS ED ROS Narrative Review of systems positive for strange feeling of right face as described by patient. No paresthesias of arms or legs. No headache. No chest pain or shortness of breath or other symptoms. EXAM Physical Exam Narrative Exam Narrative: Afebrile. Vital signs noted. Nontoxic-appearing. Cardiovascular examination feels regular rate and rhythm. Lungs are clear to auscultation bilaterally. Abdomen is soft and nontender with positive bowel sounds. Neurological examination shows chronic left-sided facial asymmetry/facial droop. NIH stroke scale 1 for this, but no right-sided facial droop. Const Vital Signs: 11/23/24 15:18 11/23/24 15:57 11/23/24 15:57 Temperature 98.2 F Temperature Source Oral Pulse Rate 69 55 L Respiratory Rate 18 12 Blood Pressure 179/70 H 105/66 Blood Pressure Mean 106 79 Pulse Ox 99 97 Oxygen Delivery Method Room Air Room Air Room Air 11/23/24 16:03 11/23/24 16:18 11/23/24 16:30 Temperature Temperature Source Pulse Rate 55 L 60 61 Respiratory Rate 16 14 16 Blood Pressure 105/66 139/64 H 154/80 H Blood Pressure Mean 79 89 104 Pulse Ox 97 98 97 Oxygen Delivery Method Room Air Room Air Room Air 11/23/24 17:00 11/23/24 17:06 Temperature Temperature Source Pulse Rate 62 62 Respiratory Rate 15 15 Blood Pressure 131/62 H 131/62 H Blood Pressure Mean 85 85 Pulse Ox 96 96 Oxygen Delivery Method Room Air Room Air MDM MDM MDM Narrative Medical decision making narrative: Differential diagnosis includes but not limited to TIA versus Corrales's palsy versus stroke versus hypertensive emergency. Upon repeat examination after telestroke review, patient denies headaches continually so complex migraine is less likely. Additionally, she states that her symptoms are improving if not resolved. EKG was obtained and interpreted by myself independently as sinus bradycardia at57 bpm without ectopy or acute ST changes. No STEMI. I reviewed the radiology report and spoke with the radiologist regarding the brain CT which shows no acute abnormality. In discussion with telestroke neurologist, delmer DOMINIQUE because she does not have a debilitating deficit, CTA will be performed and reviewed as well. She suggestedobservation for MRI given previous history of stroke. Basic laboratory work still pending. I reviewed the radiology report of the CTA and there is no large vessel occlusion. I reviewed her laboratory work and she has normal white count of 5.0with hemoglobin 11.8, hematocrit 34.6, platelet count 179. INR 1.1 with a PTT 29. BMP grossly unremarkable. Vrgju-cu-otzk glucose 98. High-sensitivity troponin is 10. Patient discussed with Dr. Trimble for observation on the PCU. Disposition isassigned observation. Patient is in stable condition. History & Record Review Discussion w/independent historian: Patient Additional record(s) reviewed:: Prior ED visit Lab Data Attestation: I reviewed the patient's lab results. Labs: Laboratory Results - last 24 hr 11/23/24 11/23/24 15:50 15:56 WBC 5.0 RBC 3.80 L Hgb 11.8 L Hct 34.6 L MCV 91.1 MCH 31.1 MCHC 34.1 RDW Std Deviation 42.8 RDW Coeff of Jennifer 13.0 Plt Count 179 MPV 9.1 Immature Gran % (Auto) 0.800 Neut % (Auto) 57.1 Lymph % (Auto) 26.5 [place] % (Auto) 11.0 H Eos % (Auto) 3.6 Baso % (Auto) 1.0 Absolute Neuts (auto) 2.9 Absolute Lymphs (auto) 1.33 Nucleated RBC % 0 PT 14.0 INR 1.1 APTT 29.0 Sodium 136 Potassium 4.2 Chloride 106 Carbon Dioxide 21.7 Anion Gap 8 BUN 17 Creatinine 0.75 Estim Creat Clear Calc 57.03 Est GFR (MDRD) Non-Af 80 BUN/Creatinine Ratio 22.2 H Glucose 95 Calcium 8.3 Troponin T High Sens 10 POC Glucose 98 Radiography Diagnostic Testing: Clinical Impression(s) from Imaging Studies Head/Neck CTA 11/23/24 15:34 IMPRESSION: 1. No acute intracranial or cervical large vessel arterial occlusion or high- grade stenosis, no significant change from prior exam. 2. Dominant right vertebral artery with diffusely hypoplastic left vertebral artery, with moderate-advanced stenosis of the distal left V4 segment. Widely patent right vertebral artery. 3. Mild-moderate focal narrowing of the proximal basilar artery. No significantICA stenosis. 4. Mild short-segment narrowings along the left PHYLICIA A2-A3 segments. \ Reading Location: [id number] Brain CT 11/23/24 15:36 IMPRESSION: No acute abnormality is seen. Red Alert: Chronic changes The critical information above was relayed directly by me by telephone to Arnulfo Perrin on 11/23/2024 at 3:48 pm with readback verification. Reading Location: [id number] Discharge Plan Dx/Rx/DC Orders Clinical Impression: Weakness on right side of face, History of stroke, Facial paresthesia Disposition Disposition: Acute Care Hospital [facility] NIHSS NIHSS 1a. Level of Consciousness: 0 - Alert; keenly responsive 1b. LOC Questions: 0 - Answers BOTH questions correctly 1c. LOC Commands: 0 - Performs BOTH tasks correctly 2. Best Gaze: 0 - Normal 3. Visual: 0 - No visual loss 4. Facial Palsy: 1 - Minor paralysis (flattened nasolabial fold, asymmetry on smiling) (Left, chronic) 5a. Left Arm: 0 - No drift; arm holds 90 (or 45) degrees for full 10 seconds 5b. Right Arm: 0 - No drift; arm holds 90 (or 45) degrees for full 10 seconds 6a. Left Le - No drift; leg holds 30-degree position for full 5 seconds 6b. Right Le - No drift; leg holds 30-degree position for full 5 seconds 7. Limb Ataxia: 0 - Absent 8. Sensory: 0 - Normal; no sensory loss 9. Best Language: 0 - No aphasia; normal 10. Dysarthria: 0 - Normal 11. Extinction and Inattention: 0 - No abnormality Total: 1 Stroke Questions Stroke Team Activated: Yes Reviewed Inclusion/Exclusion criteria: Yes IV Thrombolytic Administered: No No contraindications from thrombolytic administration: No (No debilitating deficit.) What to do if you have Problems For any increased pain, shortness of breath, bleeding, nausea or vomiting, chestpain, or any unexpected problems, contact your Primary Care Provider. Call [facility] ([phone]) or report to the closest Emergency Room. Call 911 if necessary. 11/23/24 1720 <Electronically signed by Arnulfo Perrin MD> Cosigner Signature (if applicable): CC: Dr. Elis Cardenas, DO ~ Signed [facility] Work Phone: [phone] Progress note Author Afua Banuelos [facility] Note Date/Time October 18, 2024 1:38 pm [facility] [address] [place] [address] OFFICE VISIT Date of Service: 10/18/24 MR#: [id number] Acct: [id number] Name: LILLIANA HUBER Rep #: [id number] : 1945 Provider: DORINDA Banuelos Age/Sex: 79/F Location: [facility] Status: Signed Intake Vital Signs 09/27/24 09:02 10/18/24 13:17 Height 5 ft 2 in 5 ft 2 in Weight: 168 lb 178 lb BMI 30.7 32.5 BP 114/69 120/72 Respiration 16 18 Pulse 60 83 Temp 98.3 F Temp Source Temporal Pulse Oximetry (%) 94 96 Oxygen Delivery Method room air room air Comment Patient verbally reports weight PT self reported wt. Refuses to let us weight her. Intake Visit Reasons: 3 WK fu Chief Complaint: constipaiton Contract Driver Required: No Accompanied by: Self Is patient in pain?: No Allergies Sulfa (Sulfonamide Antibiotics) Allergy (Intermediate, Verified 10/18/24 13:10) Rash pepper (genus Capsicum) Allergy (Verified 10/18/24 13:10) Swelling adhesive tape Adverse Reaction (Intermediate, Verified 10/18/24 13:10) Rash Penicillins Adverse Reaction (Unknown, Verified 10/18/24 13:10) Rash Medications ?Medication ?Instructions ?Recorded ?Confirmed ?Type ascorbic acid (vitamin C) 500 mg 500 mg PO DAILY 05/2110/18/24 History tablet (Vitamin C) cholecalciferol (vitamin D3) 125 125 mcg PO DAILY 04/2710/18/24 History mcg (5,000 unit) tablet (Vitamin D3) aspirin 81 mg tablet,delayed 81 mg PO DAILY@0800 #90 t abs 03/13/23 10/18/24 Rx release Handicap Placard #1 ea 04/23/23 10/18/24 Rx levothyroxine 137 mcg tablet 137 mcg PO DAILY 04/23/23 10/18/24 History lisinopril 20 mg tablet 20 mg PO DAILY #90 tabs 09/2410/18/24 Rx atorvastatin 40 mg tablet 40 mg PO QDAY #90 tabs 04/2510/18/24 Rx atenolol 25 mg tablet 25 mg PO DAILY #90 tabs 07/2510/18/24 Rx amlodipine 10 mg tablet 10 mg PO QDAY #90 tabs 08/2410/18/24 Rx clopidogrel 75 mg tablet 75 mg PO QDAY 08/24/2410/18 History lysine 1,000 mg tablet 500 mg PO DAILY 09/26/24 History zinc lozenges 15 mg 50 mg PO DAILY 09/26/2409/25 History bisacodyl 5 mg tablet,delayed 5 mg PO ONCE PRN 5 10/18/24 History release (Gentle Laxative (bisacodyl)) Have you fallen in the past year?: No PFSH Medical History Coronary artery disease Hypertension Dyslipidemia Mild cognitive impairment Ischemic cardiomyopathy Arteriosclerotic cardiovascular disease Hearing loss, left Chest pain Stroke/cerebrovascular accident Compression neuropathy of genitofemoral nerve Stress incontinence Wears hearing aid Wears glasses Post-menopausal Depression Thyroid disease Arthritis High cholesterol Non-smoker Leg cramps History of stress test History of echocardiogram Uterovaginal prolapse, incomplete TIA (transient ischemic attack) History of stroke Cancer GERD (gastroesophageal reflux disease) Menieres disease Corrales's palsy Aphthous ulcer of mouth Hypothyroidism Hyperlipidemia Benign essential hypertension Surgical History Stented coronary artery (05/12/23) Status post hysterectomy with oophorectomy Hx of surgical procedure H/O tubal ligation H/O dilation and curettage H/O breast biopsy Hx of colonoscopy History of thyroidectomy H/O hernia repair Family History Mother Heart disease Social History Smoking Status: Never smoker alcohol intake: never substance use type: does not use caffeine: Yes Type: coffee Number of servings: 1 seatbelt use: always do you feel safe at home: Yes additional social history: - [place] HPI HPI Chief Complaint: constipaiton Details: LILLIANA HUBER, is a 79 F who presents to the office today for OV 09/27/2024 78y/o female presents for initial consultation with complaints of chronic constipation. She reports a colonoscopy was unremarkable 5-6 years ago and denies any family h/o colon CA. She denies any weight loss or bleeding. She willcomplete a KUB today. I have recommended a high fiber diet, linzess 290mcg once daily and follow-up in 3 weeks. Note: realSociable speech recognition baby sitter software was used to create portions of this document. Sound-alike and misspelled words, as well as other baby sitter errors may be contained in the documentation. Patient Instructions: KUB today High fiber diet Linzess 290mcg once daily, samples provided Follow-up in 3 weeks KUB 09/27/2024 - reports she tried Linzess but this caused diarrhea and she discontinued - she reports she is taking a laxative QOD and c/o constipation - she reports all she has had watery diarrhea - states the Linzess caused diarrhea 4x a day - she is taking OTC ex-lax QOD, without this she will not have a bowel movement - denies any new mediations - denies any dietary changes - denies any weight loss - denies any bleeding - she is not uncomfortable if she does not have a bowel movement - denies any pain - she was taking metamucil - she is on Plavix - her daughter and she is leaving for [place] tomorrow - she remains active - lives with her - denies any recent falls ROS Const Constitutional: No fatigue, fever(s) or weight change ENT ENT: No difficulty swallowing Gastro GI: Positive for change in bowel habits and diarrhea; No abdominal pain, belching, bloating, change in stool character, coffee ground emesis, constipation, cramping, heartburn, difficulty swallowing, feeling full early, excessive flatus, incontinent of stools, Vomiting blood/hematemesis, Blood in stool, loose stools, Black,tarry stools, nausea/dyspepsia, pain with swallowing, vomiting or other Musc Musculoskeletal: No joint pain Skin Skin: No yellowing of the eye or itchy eyes Psych Psychiatric: No anxiety and Positive for depression Endo Endocrine: No fatigue or weight change Aller/Imm Allergy/Immunologic: No itchy eyes Urbaon/Lymp Hematologic/Lymphatic: Positive for easy bruising; No easy bleeding Exam Const General: cooperative, healthy appearing, no acute distress and well developed Nutritional Appearance: well nourished and overweight Orientation: alert and oriented x3 HENVA Head: normocephalic Ears: hearing grossly normal bilaterally Mouth: moist mucous membranes Teeth and gingiva: dentition normal Eyes Conjunctivae: conjunctivae normal Sclera: sclerae normal Neck Neck: normal visual inspection, full ROM and trachea midline Resp Effort & Inspection: normal respiratory effort, able to speak in complete sentences and symmetric chest movement Auscultation: Bilateral: Clear to Auscultation Cardio Rate: regular rate Rhythm: regular rhythm Heart Sounds: S1 normal and S2 normal GI Inspection: normal to inspection Auscultation: normal bowel sounds Palpation: soft and no hepatosplenomegaly Rectal Exam: deferred Skin General: no rashes or lesions noted and turgor normal Neuro General: patient alert and patient oriented x3 Cranial Nerves: other (CN's grossly intact, non-focal exam) Cognition: normal cognition Speech: speech normal Gait: normal gait Extrem General: normal to inspection (no edema noted) Psych Appearance: grossly normal and well kempt Affect: normal affect Attitude: cooperative Thought Process: normal Assessment and Plan Assessment and Plan (1) Change in bowel habits: Status: Acute Plan 79-year-old female presents for follow-up in bowel habits. She reports inability to have a bowel movement without taking an OTC laxative. She did trial Linzess which caused diarrhea and it discontinued. She reports her last colonoscopy was unremarkable 5 to 6 years ago and she denies any family history of colon cancer. She denies any abdominal pain, bleeding, or weight loss. She denies any medication changes or dietary changes to account for change in bowels. She reports she previously had a normal formed bowel movement once a day and change in bowel habits as are quite concerned. She is requesting to proceed with a colonoscopy at this time. I have recommended she add Metamucil once daily and tentatively scheduled her for colonoscopy if symptoms are persisting. Note: realSociable speech recognition baby sitter software was used to create portions of this document. Sound-alike and misspelled words, as well as other baby sitter errors may be contained in the documentation. Patient Instructions: Metamucil 2 heaping teaspoons once daily in 8 ounces of water after a meal. Do not take Metamucil should be taken at least 1 hours after other medications. Maytake up to 3 weeks for symptom improvement. Continue good daily water intake Colon - SuFlave Coding Level of Care Code Off vis,est,level 3 Diagnoses Change in bowel habits R19.4 Clinical Quality Measures Falls Risk Screening/Assistive Devices Have you fallen in the past year?: No Smoking Screening Smoking Status: Never smoker 10/18/24 1338 <Electronically signed by Afua SETH> Date _ Afua Carlos Signature: Date (if applicable) CC: ~ [facility] Work Phone: 1(525) 659-411106-25-2025 [facility] [address] [place] [address] OFFICE VISIT Date of Service: 10/18/24 MR#: [id number] Acct: [id number] Name: LILLIANA HUBER Rep #: [id number] : 1945 Provider: DORINDA Banuelos Age/Sex: 79/F Location: [facility] Status: Signed Intake Vital Signs 09/27/24 09:02 10/18/24 13:17 Height 5 ft 2 in 5 ft 2 in Weight: 168 lb 178 lb BMI 30.7 32.5 BP 114/69 120/72 Respiration 16 18 Pulse 60 83 Temp 98.3 F Temp Source Temporal Pulse Oximetry (%) 94 96 Oxygen Delivery Method room air room air Comment Patient verbally reports weight PT self reported wt. Refuses to let us weight her. Intake Visit Reasons: 3 WK fu Chief Complaint: constipaiton Contract Driver Required: No Accompanied by: Self Is patient in pain?: No Allergies Sulfa (Sulfonamide Antibiotics) Allergy (Intermediate, Verified 10/18/24 13:10) Rash pepper (genus Capsicum) Allergy (Verified 10/18/24 13:10) Swelling adhesive tape Adverse Reaction (Intermediate, Verified 10/18/24 13:10) Rash Penicillins Adverse Reaction (Unknown, Verified 10/18/24 13:10) Rash Medications ?Medication ?Instructions ?Recorded ?Confirmed ?Type ascorbic acid (vitamin C) 500 mg 500 mg PO DAILY 05/2110/18/24 History tablet (Vitamin C) cholecalciferol (vitamin D3) 125 125 mcg PO DAILY 04/2710/18/24 History mcg (5,000 unit) tablet (Vitamin D3) aspirin 81 mg tablet,delayed 81 mg PO DAILY@0800 #90 t abs 03/13/23 10/18/24 Rx release Handicap Placard #1 ea 04/23/23 10/18/24 Rx levothyroxine 137 mcg tablet 137 mcg PO DAILY 04/23/23 10/18/24 History lisinopril 20 mg tablet 20 mg PO DAILY #90 tabs 09/2410/18/24 Rx atorvastatin 40 mg tablet 40 mg PO QDAY #90 tabs 04/2510/18/24 Rx atenolol 25 mg tablet 25 mg PO DAILY #90 tabs 07/2510/18/24 Rx amlodipine 10 mg tablet 10 mg PO QDAY #90 tabs 08/2410/18/24 Rx clopidogrel 75 mg tablet 75 mg PO QDAY 08/24/2410/18 History lysine 1,000 mg tablet 500 mg PO DAILY 09/26/24 History zinc lozenges 15 mg 50 mg PO DAILY 09/26/2409/25 History bisacodyl 5 mg tablet,delayed 5 mg PO ONCE PRN 5 10/18/24 History release (Gentle Laxative (bisacodyl)) Have you fallen in the past year?: No PFSH Medical History Coronary artery disease Hypertension Dyslipidemia Mild cognitive impairment Ischemic cardiomyopathy Arteriosclerotic cardiovascular disease Hearing loss, left Chest pain Stroke/cerebrovascular accident Compression neuropathy of genitofemoral nerve Stress incontinence Wears hearing aid Wears glasses Post-menopausal Depression Thyroid disease Arthritis High cholesterol Non-smoker Leg cramps History of stress test History of echocardiogram Uterovaginal prolapse, incomplete TIA (transient ischemic attack) History of stroke Cancer GERD (gastroesophageal reflux disease) Menieres disease Corrales's palsy Aphthous ulcer of mouth Hypothyroidism Hyperlipidemia Benign essential hypertension Surgical History Stented coronary artery (05/12/23) Status post hysterectomy with oophorectomy Hx of surgical procedure H/O tubal ligation H/O dilation and curettage H/O breast biopsy Hx of colonoscopy History of thyroidectomy H/O hernia repair Family History Mother Heart disease Social History Smoking Status: Never smoker alcohol intake: never substance use type: does not use caffeine: Yes Type: coffee Number of servings: 1 seatbelt use: always do you feel safe at home: Yes additional social history: - [place] HPI HPI Chief Complaint: constipaiton Details: LILLIANA HUBER, is a 79 F who presents to the office today for OV 09/27/2024 78y/o female presents for initial consultation with complaints of chronic constipation. She reportsa colonoscopy was unremarkable 5-6 years ago and denies any family h/o colon CA. She denies any weight loss or bleeding. She willcomplete a KUB today. I have recommended a high fiber diet, linzess 290mcg once daily and follow-up in 3 weeks. Note: realSociable speech recognition baby sitter software was used to create portions of this document. Sound-alike and misspelled words, as well as other baby sitter errors may be contained in the documentation. Patient Instructions: KUB today High fiber diet Linzess 290mcg once daily, samples provided Follow-up in 3 weeks AUSTINMike 09/27/2024 - reports she tried Linzess but this caused diarrhea and she discontinued - she reports she is taking a laxative QOD and c/o constipation - she reports all she has had watery diarrhea - states the Linzess caused diarrhea 4x a day - she is taking OTC ex-lax QOD, without this she will not have a bowel movement - denies any new mediations - denies any dietary changes - denies any weight loss - denies any bleeding - she is not uncomfortable if she does not have a bowel movement - denies any pain - she was taking metamucil - she is on Plavix - her daughter and she is leaving for [place] tomorrow - she remains active - lives with her - denies any recent falls ROS Const Constitutional: No fatigue, fever(s) or weight change ENT ENT: No difficulty swallowing Gastro GI: Positive for change in bowel habits and diarrhea; No abdominal pain, belching, bloating, change in stool character, coffee ground emesis, constipation, cramping, heartburn, difficulty swallowing, feeling full early, excessive flatus, incontinent of stools, Vomiting blood/hematemesis, Blood in stool, loose stools, Black,tarry stools, nausea/dyspepsia, pain with swallowing, vomiting or other Musc Musculoskeletal: No joint pain Skin Skin: No yellowing of the eye or itchy eyes Psych Psychiatric: No anxiety and Positive for depression Endo Endocrine: No fatigue or weight change Aller/Imm Allergy/Immunologic: No itchy eyes Urbano/Lymp Hematologic/Lymphatic: Positive for easy bruising; No easy bleeding Exam Const General: cooperative, healthy appearing, no acute distress and well developed Nutritional Appearance: well nourished and overweight Orientation: alert and oriented x3 HENMT Head: normocephalic Ears: hearing grossly normal bilaterally Mouth: moist mucous membranes Teeth and gingiva: dentition normal Eyes Conjunctivae: conjunctivae normal Sclera: sclerae normal Neck Neck: normal visual inspection, full ROM and trachea midline Resp Effort & Inspection: normal respiratory effort, able to speak in complete sentences and symmetric chest movement Auscultation: Bilateral: Clear to Auscultation Cardio Rate: regular rate Rhythm: regular rhythm Heart Sounds: S1 normal and S2 normal GI Inspection: normal to inspection Auscultation: normal bowel sounds Palpation: soft and no hepatosplenomegaly Rectal Exam: deferred Skin General: no rashes or lesions noted and turgor normal Neuro General: patient alert and patient oriented x3 Cranial Nerves: other (CN's grossly intact, non-focal exam) Cognition: normal cognition Speech: speech normal Gait: normal gait Extrem General: normal to inspection (no edema noted) Psych Appearance: grossly normal and well kempt Affect: normal affect Attitude: cooperative Thought Process: normal Assessment and Plan Assessment and Plan (1) Change in bowel habits: Status: Acute Plan 79-year-old female presents for follow-up in bowel habits. She reports inability to have a bowel movement without taking an OTC laxative. She did trial Linzess which caused diarrhea and it discontinued. She reports her last colonoscopy was unremarkable 5 to 6 years ago and she denies any family history of colon cancer. She denies any abdominal pain, bleeding, or weight loss. She denies any medicat ion changes or dietary changes to account for change in bowels. She reports she previously had a normal formed bowel movement once a day and change in bowel habits as are quite concerned. She is requesting to proceed with a colonoscopy at this time. I have recommended she add Metamucil once daily and tentatively scheduled her for colonoscopy if symptoms are persisting. Note: realSociable speech recognition baby sitter software was used to create portions of this document. Sound-alike and misspelled words, as well as other baby sitter errors may be contained in the documentation. Patient Instructions: Metamucil 2 heaping teaspoons once daily in 8 ounces of water after a meal. Do not take Metamucil should be taken at least 1 hours after other medications. Maytake up to 3 weeks for symptom improvement. Continue good daily water intake Colon - SuFlave Coding Level of Care Code Off vis,est,level 3 Diagnoses Change in bowel habits R19.4 Clinical Quality Measures Falls Risk Screening/Assistive Devices Have you fallen in the past year?: No Smoking Screening Smoking Status: Never smoker 10/18/24 1338 rayshawn C[employer]PER-C> Date _ Afua SETH Cosign Signature: Date (if applicable) CC: ~ [facility]06-05-2025 Radiology Diagnostic study note [facility] Imaging Services [address] [place] [address] Abdomen Single View MR#: [id number] Acct: [id number] Name: LILLIANA HUBER Rep #: [id number] : 1945 F 78 From: Ramana Reynoso MD PCP: Dr. Elis Cardenas DO Status: REG CLI Study:Abdomen Single View Date of Exam: 09/27/24 Exam# [id number] Ordering Dr: Afua Banuelos PROCEDURE: ABDOMEN SINGLE VIEW 09/27/2024 REASON FOR EXAM: CONSTIPATION TECHNIQUE: Single view abdomen. COMPARISON: None. FINDINGS: The bowel gas pattern is nonobstructive. There are no abnormal soft tissue calcifications or radiopaque foreign bodies. There are no significant bony abnormalities. RAD/Abdomen Single View IMPRESSION: No evidence of acute abdominal pathology. Reading Location: [facility] CC: DORINDA Banuelos; Dr. 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 August 24, 2024 1:35pm Ischemic cardiomyopathy resolved M ay 2024 1:35pm Constipation acute September 27 8:44am Change in bowel habits acute Ju 2024 12:58pm [facility] Work Phone: 1(131) 213-864205-01-2025 Evaluation note* Diagnosis Onset Date Resolution Status Admit Date Aortic valve regurgitation chronic August 24, 2024 1:35pm Carotid artery disease chronic Ma y 2024 1:35pm Coronary artery disease chronic M ay 2024 1:35pm Dyslipidemia chronic August 24 1:35pm Hypertension chronic August 24 1:35pm Stented coronary artery May 12, 2023 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 August 24, 2024 1:35pm Ischemic cardiomyopathy resolved M ay 2024 1:35pm Constipation acute September 27 8:44am Change in bowel habits acute [facility] 2024 12:58pm Facial paresthesia acute October 262024 5:16pm History of stroke acute November 232024 5:16pm Weakness on right side of face acute November 23, 2024 5:16pm [facility] Work Phone: 1(332) 812-214403-20-2025 Evaluation note* Diagnosis Onset Date Resolution Status Admit Date Basilar artery stenosis acute M arch 2024 1:55pm Mild cognitive impairment acute July 13, 2024 1:55pm Cerebrovascular accident noneactive July 13, 2024 1:55pm Aortic valve regurgitation chronic August 24, 2024 1:35pm Carotid artery disease chronic Ma y 2024 1:35pm Coronary artery disease chronic M ay 2024 1:35pm Dyslipidemia chronic August 24 1:35pm Hypertension chronic August 24 1:35pm Stented coronary artery May 12, 2023 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 August 24, 2024 1:35pm Ischemic cardiomyopathy resolved M ay 2024 1:35pm Constipation acute September 27 8:44am [facility] Work Phone: 1(776) 972-459203-20-2025 Evaluation note* Diagnosis Onset Date Resolution Status Admit Date Basilar artery stenosis acute M arch 2024 1:55pm Mild cognitive impairment acute July 13, 2024 1:55pm Cerebrovascular accident noneactive July 13, 2024 1:55pm Aortic valve regurgitation chronic August 24, 2024 1:35pm Carotid artery disease chronic Ma y 2024 1:35pm Coronary artery disease chronic M ay 2024 1:35pm Dyslipidemia chronic August 24 1:35pm Hypertension chronic August 24 1:35pm Stented coronary artery May 12, 2023 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 August 24, 2024 1:35pm Ischemic cardiomyopathy resolved M ay 2024 1:35pm Constipation acute September 27 8:44am Change in bowel habits acute Ju ne 2024 12:58pm [facility] Work Phone: 1(588) 412-528912-31-2024 Evaluation note* Diagnosis Onset Date Resolution Status Admit Date Basilar artery stenosis acute D ecember 2023 10:14am Mild cognitive impairment acute April 25, 2024 10:14am Cerebrovascular accident noneactive April 25, 2024 10:14am Basilar artery stenosis acute J anuary 2024 1:21pm Basilar artery stenosis acute M arch 2024 1:55pm Mild cognitive impairment acute July 13, 2024 1:55pm Cerebrovascular accident noneactive July 13, 2024 1:55pm [facility] Work Phone: 1(756) 475-365101-18-2024 Discharge summary Author Claribel Purvis [facility] May 13, 2023 10:26am Note Date/Time May 13, 2023 1 0:20am [facility] Medical Records Department [address] [place] [address] Instructions for Home/Discharge Instructions 05/13/23 1017 MR#: [id number] Acct: [id number] Name: LILLIANA HUBER Rep #:[id number] : 1945 77 From: Claribel FERREIRA PCP: Dr. Elis Cardenas, DO Status:ADM LINA Discharge Instructions Diet Discharge Diet: Low fat / Low cholesterol Activity Discharge Activity: Return to Normal Activity Lifting Restrictions: Nothing greater than 10 pounds for 3 days Dressing / Incision Call your doctor if your incision/area has: Continuous Slow Oozing, Sudden Increased Bleeding, Increased Pain/ Swelling, Increased Redness and Swelling at the incision site Follow Up Care When: [facility] will call you with an appointment for Dr. Irving this will be scheduled in 3 to 4 months Test Results: Test results from this visit will be discussed in further detail at your follow- up appointment, if applicable. Discharge Plan Admission Admit Date/Time: 05/12/23 12:43 Primary Reason for Your Visit: s/p PCI Attending Provider: Kendal Hoffmann Primary Care Provider: Elis Cardenas Instructions Additional Instructions / Restrictions: Dr. Hoffmann who did your heart catheterization would like you to stay on Brilinta for 1 month. This is because of the extensive work that he did yesterday on your blood vessel. After that if you do not have any further diarrhea you can switch back to your Plavix. However before doing so I would like you to call our office so we can give you the correct instructions. Our office's phone number is [phone] option 4 for the nurse. Discharge Orders/Prescriptions Prescriptions: New Brilinta 90 mg Tablet 90 mg PO BID Qty: 60 11RF Continued atorvastatin 40 mg tablet 40 mg PO DAILY Qty: 90 1RF citalopram 10 mg tablet 10 mg PO DAILY Qty: 30 5RF levothyroxine 137 mcg tablet 137 mcg PO DAILY (DME) Handicap Placard See Rx Instructions .Route .MEDSUPPLY Qty: 1 0RF Rx Instructions: Good From 04/23/2023-04/23/2028 atenolol 25 mg tablet 25 mg PO DAILY Patient Comments: heart/blood pressure amlodipine 5 MG tablet 5 mg PO DAILY Patient Comments: blood pressure lysine 1,000 mg Tablet 1,000 mg PO DAILY Hold Instructions: NOLONGER TAKING garlic 1,000 mg Capsule 1,000 mg PO DAILY Hold Instructions: NO LONGER TAKING ascorbic acid (vitamin C) [Vitamin C] 500 mg Tablet 500 mg PO DAILY zinc lozenges 15 mg Lozenge 15 mg PO DAILY B-complex with vitamin C Tablet 1 tab PO DAILY cholecalciferol (vitamin D3) [Vitamin D3] 125 mcg (5,000 unit) Tablet 125 mcg PO DAILY Patient Comments: PT TAKES 2 PILLS DAILY turmeric root extract 500 mg Capsule 500 mg PO DAILY calcium carb and citrate-vitD3 [Citracal-D3 Slow Release] 600 mg-12.5 mcg (500unit) Tablet Extended Release 2 tab PO DAILY aspirin 81 mg Tablet,Delayed Release (Dr/Ec) 81 mg PO DAILY@0800 Qty: 90 0RF lisinopril 2.5 mg tablet 2.5 mg PO DAILY Qty: 90 0RF Discontinued clopidogrel 75 mg tablet 75 mg PO DAILY Qty: 90 3RF lisinopril 20 MG tablet 20 mg PO DAILY Qty: 30 0RF Patient Comments: BLOOD PRESSURE Referrals / Follow Up: Elis Cardenas DO [Primary Care Provider] - Disposition Disposition (needs filled in before D/C Order can be placed): Home, Self Care 05/13/23 1026<Electronically signed by Claribel FERREIRA>Claribel FERREIRA CC: Dr. Elis Cardenas DO ~ Signed [facility] Work Phone: 1(530) 534-543401-17-2024 Hospital Discharge instructions Additional Instructions Dr. Hoffmann who did your heart catheterization would like you to stay on Brilinta for 1 month. This is because of the extensive work that he did yesterday on your blood vessel. After that if you do not have any further diarrhea you can switch back to your Plavix. However before doing so I would like you to call our office so we can give you the correct instructions. 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 Stented coronary artery May 12, 2023 chronic Coronary artery disease 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 Dyslipidemia chronic Hypertension chronic Ischemic cardiomyopathy 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 Stented coronary artery May 12, 2023 [facility] Work Phone: 1(204) 818-797401-17-2024 Evaluation note* Diagnosis Onset Date Resolution Status Coronary artery disease 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 Dyslipidemia chronic Hypertension chronic Ischemic cardiomyopathy 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 Elis Cardenas DO Status:ADM IN Location: [place] [address] Providers Date of Admission: 03/12/23 Primary Care Physician: Dr. Elis Cardenas, DO Consultations 03/12/23 05:26 Consult: Cardiology Routine Consulting Provider: Kendal Hoffmann Reason for Consult: Chest Pain EMERGENT Consult: No MD Notified: Yes Date Notified: 03/12/23 Time Notified: 04:26 Method of Notification: ED Physician Initiated Reason For Visit: NSTEMI Diagnosis Discharge Diagnosis (1) Acute non-ST elevation myocardial infarction (NSTEMI): Status: Acute Code(s): I21.4 - Non-ST elevation (NSTEMI) myocardial infarction Plan Patient is a 77-year-old lady admitted with chest pain found to have elevated troponin consistent with acute non-STEMI treatment initiated per protocol patient admitted to monitored bed for further management 1. Acute non-STEMI ? Treatment initiated per protocol. Aspirin for management ordered 2D echo consult placed to cardiology patient kept n.p.o. for left heart catheterization with intervention if warranted ? 03/13/2023;Patient underwent successful PCI of the culprit which is 80% stenosis of the mid LAD which is calcified with thrombus Predilated with 2.5 x 15 mm balloon followed by placement of drug-eluting stent [place]. Patient was discharged home with guideline directed medical therapy. Echo demonstrated EF of 35 to 40% 2. Hypertension - Blood pressure controlled, home medications continued with dose adjustment as needed 3. Dyslipidemia -Patient is on statin therapy, continued at home dose 4 hypothyroidism/history of thyroid cancer -Status post thyroidectomy in 1993 -Continue home levothyroxine 5. History of TIAs -Patient is on antiplatelet therapy with aspirin continued 6. Class I obesity with BMI of 32.5 ? Complicating care weight loss advised 7. History of uterine prolapse -status post hysterectomy 8. DVT prophylaxis ? Patient is fully anticoagulated Time spent in the patient's overall evaluation,decision-making process, review of diagnostic data, adjustment of management, discussion with other providers, nursing nursing and ancillary staff involved in patient's care documentation, 40 Minutes Medications at Discharge Home Medications amlodipine 5 mg tablet 5 mg PO DAILY 09/22/15 lisinopril 20 mg tablet 20 mg PO DAILY #30 tabs 10/11/15 atenolol 25 mg tablet 25 mg PO DAILY 12/25/21 levothyroxine 175 mcg tablet 137 mcg PO DAILY 12/25/21 B-complex with vitamin C 1 tab PO DAILY 05/21/22 ascorbic acid (vitamin C) 500 mg tablet (Vitamin C) 500 mg PO DAILY 05/21/22 aspirin 81 mg capsule 81 mg PO DAILY 05/21/22 calcium carb,cit ER 600 mg-vit D3 12.5 mcg (500 unit) tablet,ext.rel (Citracal- D3 Slow Release) 2 tab PO DAILY 05/21/22 cholecalciferol (vitamin D3) 125 mcg (5,000 unit) tablet (Vitamin D3) 125 mcg PODAILY 05/21/22 garlic 1,000 mg capsule 1,000 mg PO DAILY 05/21/22 lysine 1,000 mg tablet 1,000 mg PO DAILY 05/21/22 turmeric root extract 500 mg capsule 500 mg PO DAILY 05/21/22 zinc lozenges 15 mg 15 mg PO DAILY 05/21/22 atorvastatin 40 mg tablet 40 mg PO DAILY #90 tabs 02/15/23 citalopram 10 mg tablet 10 mg PO DAILY #30 tabs 02/16/23 aspirin 81 mg tablet,delayed release 81 mg PO DAILY@0800 #90 tabs 03/13/23 lisinopril 2.5 mg tablet 2.5 mg PO DAILY #90 tabs 03/13/23 ticagrelor 90 mg tablet (Brilinta) 90 mg PO BID #180 tabs 03/13/23 Hospital Course Procedures 2-D Echocardiogram and Cardiac catheterization Summary of Care Provided Minutes Spent on Discharge: 40 Physical Exam Narrative GENERAL: cooperative HEENT: Atraumatic; normocephalic EYES; Anicteric, Normal Conjunctiva NECK; supple, normal thyroid, RESPIRATORY: Diminished to auscultation CARDIOVASCULAR: Regular S1 S2, GI: soft, normoactive bowel sounds, : No Renal angle tenderness; EXTREMITIES: No edema, no clubbing, MUSCULOSKELETAL: no muscle wasting NEURO: Awake; no lateralizing signs. SKIN: No Rash PSYCH; Flat affect Weight / BMI Weight Weight: 81.1 kg Body Mass Index (BMI) 32.7 ABG / Lab / Microbiology Data 03/13/23 07:28 03/13/23 07:28 Laboratory: Laboratory Results - last 24 hr 03/12/23 11:50: Activated Clotting Time 311 H 03/13/23 07:28: WBC 7.4, RBC 4.19 L, Hgb 13.1, Hct 37.8, MCV 90.2, MCH 31.3, MCHC 34.7 D, RDW Std Deviation 44.0 H, RDW Coeff of Jennifer 13.4, Plt Count 205, MPV 9.0, Sodium 139, Potassium 3.7, Chloride 112 H, Carbon Dioxide 21.0, Anion Gap 6, BUN 11, Creatinine 0.80, Estim Creat Clear Calc 45.10, Est GFR (MDRD) Af Amer 89, Est GFR (MDRD) Non-Af 74, BUN/Creatinine Ratio 13.8, Glucose 98, Calcium 8.3 L, Total Bilirubin 0.50, AST 46 H, ALT 23, Alkaline Phosphatase 81, Total Protein 6.3 L, Albumin 3.2, Globulin 3.1, Albumin/Globulin Ratio 1.0 Radiography Diagnostic Testing: Radiology Impression Echocardiogram 03/12/23 05:55 Interpretation Summary The estimated ejection fraction is 35-40 %. Moderate LV systolic dysfunction Anteroapical and distal septal hypokinesia Mild aortic incompetence Mild MR Grade 1 diastolic dysfunction Contrast echo used/Definity In comparison to previous echo segmental wall motion abnormality as described isnoted Secondary to CAD/non-STEMI Ordering Physician: Lynne Tabares Referring Physician: Elis Cardenas Performed By: Christie Galan RDCS, RVT D/C Instructions Discharge Diet: Low fat / Low cholesterol Discharge Activity: Return to Normal Activity Call your doctor if you observe: Fever of 101 or Higher, Shortness of breath, Fainting spells and Chest pain Meaningful Use Info Meaningful Use Diagnoses (Choose all that apply): AMI AMI/Post PCI/Angioplasty Aspirin given w/in 24hrs of arrival?: Yes ASA at discharge?: Yes Antiplatelet Therapy at Discharge:: Yes Statins at discharge?: Yes Ayden/ARB at discharge?: Yes Beta Becca at discharge?: Yes Done w/ Acute MN measure.: Yes Documented LVEF (%): 40 Discharge Plan Admission Admit Date/Time: 03/12/23 04:24 Attending Provider: Alfonso Anderson Primary Care Provider: Elis Cardenas Consulting Providers: Kendal Hoffmann; Lynne Tabares Discharge Orders/Prescriptions Prescriptions: New aspirin 81 mg Tablet,Delayed Release (Dr/Ec) 81 mg PO DAILY@0800 Qty: 90 0RF Brilinta 90 mg Tablet 90 mg PO BID Qty: 180 0RF lisinopril 2.5 mg tablet 2.5 mg PO DAILY Qty: 90 0RF Continued atorvastatin 40 mg tablet 40 mg PO DAILY Qty: 90 1RF citalopram 10 mg tablet 10 mg PO DAILY Qty: 30 5RF levothyroxine 175 mcg tablet 137 mcg PO DAILY atenolol 25 mg tablet 25 mg PO DAILY Patient Comments: heart/blood pressure amlodipine 5 MG tablet 5 mg PO DAILY Patient Comments: blood pressure lisinopril 20 MG tablet 20 mg PO DAILY Qty: 30 0RF Patient Comments: BLOOD PRESSURE lysine 1,000 mg Tablet 1,000 mg PO DAILY Hold Instructions: NOLONGER TAKING garlic 1,000 mg Capsule 1,000 mg PO DAILY Hold Instructions: NO LONGER TAKING ascorbic acid (vitamin C) [Vitamin C] 500 mg Tablet 500 mg PO DAILY zinc lozenges 15 mg Lozenge 15 mg PO DAILY B-complex with vitamin C Tablet 1 tab PO DAILY cholecalciferol (vitamin D3) [Vitamin D3] 125 mcg (5,000 unit) Tablet 125 mcg PO DAILY Patient Comments: PT TAKES 2 PILLS DAILY turmeric root extract 500 mg Capsule 500 mg PO DAILY calcium carb and citrate-vitD3 [Citracal-D3 Slow Release] 600 mg-12.5 mcg (500unit) Tablet Extended Release 2 tab PO DAILY aspirin 81 mg Capsule 81 mg PO DAILY Discontinued prednisone 20 mg tablet 40 mg PO DAILY Qty: 8 0RF Other Ambulatory Orders: Phase II, Outpatient Cardiac Rehab (Routine) Location: None Selected Ordered By: Dr. Alfonso Anderson Referrals / Follow Up: Elis Cardenas DO [Primary Care Provider] - Disposition Disposition (needs filled in before D/C Order can be placed): Home, Self Care Charges/Coding Visit Charges Inpatient E&M: 11227 Disch Hosp >30min 03/13/23937 <Electronically signed by Alfonso Anderson MD> Cosigner Signature (if applicable): CC: Dr. Alfonso Anderson MD; Dr. Elis Cardenas DO~ Signed [facility] Work Phone: 1(729) 256-321011-18-2023 Progress note Author Alfonso Anderson [facility] March 13, 2023 9:31am Note Date/Time March 13, 2023 9:26am [facility] Medical Records Department [address] [place] [address] Progress Note - Hospitalist 03/13/23922 MR#: [id number] Acct: [id number] Name: LILLIANA HUBER Rep #:[id number] : 1945 77 From: Alfonso Anderson MD PCP: Dr. Elis Cardenas DO Status:ADM IN Location: [place] [address]- Reason for Visit Reason for Visit: Diagnoses Hyperlipidemia, unspecified (03/12/23) Essential (primary) hypertension (03/12/23) Non-ST elevation (NSTEMI) myocardial infarction (03/12/23) Subjective Subjective Patient underwent successful PCI of the culprit which is 80% stenosis of the midLAD which is calcified with thrombus Predilated with 2.5 x 15 mm balloon followed by placement of drug-eluting stent Sunday Objective Data Objective Data Vital Signs: Vital Signs Temp Pulse Resp BP Pulse Ox O2 Del Method 97.4 F L 67 16 144/60 H 95 Room Air 03/13/23 03:15 03/13/23 03:15 03/13/23 03:15 03/13/23 03:15 03/13/23 08:04 03/13/23 08:04 Oxygen Delivery Method Room Air Weight: 81.1 kg Body Mass Index (BMI) 32.7 Intake & Output: Intake and Output for Last 24 Hours 03/11/23 03/12/23 03/13/23 23:59 23:59 23:59 Intake Total 1127.25 / 1127.25 1000 / 1000 Output Total 900 / 900 Balance 227.25 / 227.25 1000 / 1000 Lab / Micro Data 03/13/23 07:28 03/13/23 07:28 Labs: Laboratory Results - last 24 hr 03/12/23 11:50: Activated Clotting Time 311 H 03/13/23 07:28: WBC 7.4, RBC 4.19 L, Hgb 13.1, Hct 37.8, MCV 90.2, MCH 31.3, MCHC 34.7 D, RDW Std Deviation 44.0 H, RDW Coeff of Jennifer 13.4, Plt Count 205, MPV 9.0, Sodium 139, Potassium 3.7, Chloride 112 H, Carbon Dioxide 21.0, Anion Gap 6, BUN 11, Creatinine 0.80, Estim Creat Clear Calc 45.10, Est GFR (MDRD) Af Amer 89, Est GFR (MDRD) Non-Af 74, BUN/Creatinine Ratio 13.8, Glucose 98, Calcium 8.3 L, Total Bilirubin 0.50, AST 46 H, ALT 23, Alkaline Phosphatase 81, Total Protein 6.3 L, Albumin 3.2, Globulin 3.1, Albumin/Globulin Ratio 1.0 Radiography Diagnostic Testing: Radiology Impression Echocardiogram 03/12/23 05:55 Interpretation Summary The estimated ejection fraction is 35-40 %. Moderate LV systolic dysfunction Anteroapical and distal septal hypokinesia Mild aortic incompetence Mild MR Grade 1 diastolic dysfunction Contrast echo used/Definity In comparison to previous echo segmental wall motion abnormality as described isnoted Secondary to CAD/non-STEMI Ordering Physician: Lynne Tabares Referring Physician: Elis Cardenas Performed By: Christie Galan, DONNIE, RVT Physical Exam Narrative GENERAL: cooperative HEENT: Atraumatic; normocephalic EYES; Anicteric, Normal Conjunctiva NECK; supple, normal thyroid, RESPIRATORY: Diminished to auscultation CARDIOVASCULAR: Regular S1 S2, GI: soft, normoactive bowel sounds, : No Renal angle tenderness; EXTREMITIES: No edema, no clubbing, MUSCULOSKELETAL: no muscle wasting NEURO: Awake; no lateralizing signs. SKIN: No Rash PSYCH; Flat affect Assessment & Plan Assessment/Plan (1) Acute non-ST elevation myocardial infarction (NSTEMI): PLAN: Plan Patient is a 77-year-old lady admitted with chest pain found to have elevated troponin consistent with acute non-STEMI treatment initiated per protocol patient admitted to monitored bed for further management 1. Acute non-STEMI ? Treatment initiated per protocol. Aspirin for management ordered 2D echo consult placed to cardiology patient kept n.p.o. for left heart catheterization with intervention if warranted ? 03/13/2023;Patient underwent successful PCI of the culprit which is 80% stenosis of the mid LAD which is calcified with thrombus Predilated with 2.5 x 15 mm balloon followed by placement of drug-eluting stent Sunday 2. Hypertension - Blood pressure controlled, home medications continued with dose adjustment as needed 3. Dyslipidemia -Patient is on statin therapy, continued at home dose 4 hypothyroidism/history of thyroid cancer -Status post thyroidectomy in 1993 -Continue home levothyroxine 5. History of TIAs -Patient is on antiplatelet therapy with aspirin continued 6. Class I obesity with BMI of 32.5 ? Complicating care weight loss advised 7. History of uterine prolapse -status post hysterectomy 8. DVT prophylaxis ? Patient is fully anticoagulated Time spent in the patient's overall evaluation,decision-making process, review of diagnostic data, adjustment of management, discussion with other providers, nursing nursing and ancillary staff involved in patient's care documentation, 40 Minutes Charges/Coding Visit Charges Inpatient E&M: 34795 Subs Hosp L2 03/13/23 0931 <Electronically signed by Alfonso Anderson MD> Cosigner Signature (if applicable): CC: ~ Signed [facility] Work Phone: 1(614) 782-588811-17-2023 Consult note Author Kendal Hoffmann [facility] March 12, 2023 4:24pm Note Date/Time March 12, 2023 9:14am [facility] Medical Records Department [address] [place] [address] Consultation - Cardiology 03/12/23909 MR#: [id number] Acct: [id number] Name: LILLIANA HUBER Rep #:[id number] : 1945 77 From: Kendal Hoffmann MD PCP: Dr. Elis Cardenas, DO Status:ADM IN Location: [address] 1 <Statement entered by Kendal Hoffmann MD - 03/12/23 16:23> Pt seen & evaluated w/FREDY. I personally interviewed & exam the pt. I was involved in all aspects of pt's orders, interpretation of results & treatment Assessment & Plan Assessment/Plan (1) Acute non-ST elevation myocardial infarction (NSTEMI): (2) Hypertension: (3) Hyperlipidemia: PLAN: Plan * Echocardiogram is pending * Troponins trended 88/400, will undergo a diagnostic heart cath today * BP slightly high, for now will continue with current home medications. Will make adjustments if needed HPI Consult Data Date of Consult: 03/12/23 HPI Narrative HPI Narrative: LILLIANA HUBER, is a 77 F who presented to [facility] on 03/12/2023 with Chest pain that was described as vague midsternal that radiated right to left that last approx one hour. Troponins trended 88/400. She was admitted to PCU for further evaluation. She does have a history of hypertension, hyperlipidemia and hypothyroid. Currently she does not have any chest pain/heaviness/ SOB. [facility] Medical History (Updated 03/12/23 @ 08:[address] Martin Wilkins, ) Aphthous ulcer of mouth Arthritis Corrales's palsy Benign essential hypertension Cancer Chest pain Depression GERD (gastroesophageal reflux disease) Hearing loss, left High cholesterol History of echocardiogram History of stress test History of stroke Hyperlipidemia Hypertension Hypothyroidism Leg cramps Menieres disease Non-smoker Post-menopausal Stress incontinence Stroke/cerebrovascular accident Thyroid disease TIA (transient ischemic attack) Wears glasses Wears hearing aid Home Medications amlodipine 5 mg tablet 5 mg PO DAILY 09/22/15 [History Last Taken 05/28/22] lisinopril 20 mg tablet 20 mg PO DAILY #30 tabs 10/11/15 [Rx Last Taken 05/28/22] atenolol 25 mg tablet 25 mg PO DAILY 12/25/21 [History Last Taken 05/28/22] levothyroxine 175 mcg tablet 137 mcg PO DAILY 12/25/21 [History Last Taken 05/28/22] B-complex with vitamin C 1 tab PO DAILY 05/21/22 [History Last Taken Unknown] ascorbic acid (vitamin C) 500 mg tablet (Vitamin C) 500 mg PO DAILY 05/21/22 [History Last Taken Unknown] aspirin 81 mg capsule 81 mg PO DAILY 05/21/22 [History Last Taken 05/19/22] calcium carb,cit ER 600 mg-vit D3 12.5 mcg (500 unit) tablet,ext.rel (Citracal- D3 Slow Release) 2 tab PO DAILY 05/21/22 [History Last Taken Unknown] cholecalciferol (vitamin D3) 125 mcg (5,000 unit) tablet (Vitamin D3) 125 mcg PODAILY 05/21/22 [History Last Taken Unknown] garlic 1,000 mg capsule 1,000 mg PO DAILY 05/21/22 [History Last Taken Unknown] lysine 1,000 mg tablet 1,000 mg PO DAILY 05/21/22 [History Last Taken Unknown] turmeric root extract 500 mg capsule 500 mg PO DAILY 05/21/22 [History Last Taken Unknown] zinc lozenges 15 mg 15 mg PO DAILY 05/21/22 [History Last Taken Unknown] prednisone 20 mg tablet 40 mg (2 x 20 mg) PO DAILY #8 tabs 10/21/22 [Rx Last Taken Unknown] atorvastatin 40 mg tablet 40 mg PO DAILY #90 tabs 02/15/23 [Rx Last Taken Unknown] citalopram 10 mg tablet 10 mg PO DAILY #30 tabs 02/16/23 [Rx Last Taken Unknown] Allergy/AdvReac Type Severity Reaction Status Date / Time Sulfa (Sulfonamide Allergy Intermediate Rash Verified 03/12/23 00:21 Antibiotics) pepper (genus Capsicum) Allergy Swelling Verified 03/12/23 00:21 adhesive tape AdvReac Intermediate Rash Verified 03/12/23 00:21 Penicillins AdvReac Unknown Rash Verified 03/12/23 00:21 Family History Mother Heart disease Surgical History H/O breast biopsy H/O dilation and curettage H/O hernia repair H/O tubal ligation History of thyroidectomy Hx of colonoscopy Hx of surgical procedure Status post hysterectomy with oophorectomy Social History Smoking Status: Never smoker alcohol intake: never substance use type: does not use caffeine: Yes seatbelt use: always do you feel safe at home: Yes additional social history: - [place] ROS Constitutional Constitutional: Denies change in weight, chills, fatigue or lethargy Eyes Eyes: Denies acute decrease in peripheral vision, blurry vision or change in vision ENT HEENT: Denies dizziness, epistaxis, headache(s), tinnitus or vertigo Cardiovascular Cardiovascular: Reports as per HPI; Denies claudication, dyspnea at rest, dyspnea on exertion, edema, irregular heart rhythm, lightheadedness, orthopnea or orthostatic symptoms Respiratory/Chest Respiratory/Chest: Denies cough, tachypnea or wheezing Gastrointestinal Gastrointestinal: Denies abdominal pain, bloating, diarrhea or heartburn Genitourinary Genitourinary: Denies hematuria Musculoskeletal Musculoskeletal: Denies myalgias, numbness or tingling Neurologic Neurologic: Denies abnormal gait, abnormal speech, memory loss, paresthesias or weakness Physical Exam Const alert, oriented x3, no apparent distress and healthy appearing HEENT normocephalic, head/scalp atraumatic, hearing grossly normal bilaterally, external ears normal, external nose normal and moist oral mucous membranes Eyes PERRL, EOMs intact bilaterally, conjunctivae normal and no scleral icterus Neck no lymphadenopathy, supple and no JVD Cardio regular rate, regular rhythm, S1 normal heart sound, S2 normal heart sound, no murmurs, no rub, no gallops, no clicks, no JVD and peripheral pulses 2+ throughout GI normal to inspection, nondistended, normoactive bowel sounds, soft to palpation,non-tender and non-distended Extremity normal to inspection, normal capillary refill, no clubbing, cyanosis or edema and no pedal edema Neuro oriented x3, CN's II-XII intact bilaterally, moves all extremities and no focal motor deficits Psych cooperative and affect normal Risk Stratification Risk Stratification Applicable: Yes Age >/= 65: Yes >/= 3 CAD Risk Factors (HTN, HLD, DM, family hx of CAD, or current smoker): Yes Aspirin Use in the Past 7 Days: Yes Severe Angina (>/= episodes in 24 hours): Yes EKG ST Changes >/= 0.5mm: No Positive Cardiac Marker: Yes NASIM Risk Stratification Score: 5 NASIM % Risk: 25% Risk Charges/Coding Visit Charges Office Visits / Consults: 72188 IP Consult L4 Objective Data Vital Signs: Vital Signs Temp Pulse Resp BP Pulse Ox O2 Del Method 98.3 F 69 18 148/71 H 94 Room Air 03/12/23 08:24 03/12/23 08:38 03/12/23 08:38 03/12/23 08:24 03/12/23 08:24 03/12/23 08:38 Oxygen Delivery Method Room Air Weight: 177 lb 14.609 oz Body Mass Index (BMI) 32.5 Intake & Output: Intake and Output for Last 24 Hours 03/10/23 03/11/23 03/12/23 23:59 23:59 23:59 Intake Total 0 / 0 Output Total 0 / 0 Balance 0 / 0 Lab / Micro Data 03/12/23 06:15 03/12/23 06:15 Labs: Laboratory Results - last 24 hr 03/12/23 00:38: WBC 7.1, RBC 4.42, Hgb 13.2, Hct 39.9, MCV 90.3, MCH 29.9, MCHC 33.1, RDW Std Deviation 44.1 H, RDW Coeff of Jennifer 13.4, Plt Count 239, MPV 9.1, Immature Gran % (Auto) 0.800, Neut % (Auto) 60.3, Lymph % (Auto) 27.0, [place] % (Auto) 8.2, Eos % (Auto) 2.3, Baso % (Auto) 1.4 H, Absolute Neuts (auto) 4.3, Absolute Lymphs (auto) 1.92, Nucleated RBC % 0, PT 12.0, INR 0.9, APTT 29.2, D-Dimer Quant (PE/DVT) 0.37, Sodium 140, Potassium 4.0, Chloride 109 H, Carbon Dioxide 23.0, Anion Gap 8, BUN 24 H, Creatinine 0.91, Estim Creat Clear Calc 39.65, Est GFR (MDRD) Af Amer 77, Est GFR (MDRD) Non-Af 64, BUN/Creatinine Ratio26.5 H, Glucose 124 H, Calcium 8.9, Troponin I High Sens 88 H 03/12/23 02:50: Troponin I High Sens 400 H* 03/12/23 06:15: WBC 7.2, RBC 4.25, Hgb 12.6, Hct 38.6, MCV 90.8, MCH 29.6, MCHC 32.6, RDW Std Deviation 44.0 H, RDW Coeff of Jennifer 13.2, Plt Count 211, MPV 9.3, Sodium 142, Potassium 3.8, Chloride 112 H, Carbon Dioxide 25.0, Anion Gap 5, BUN18, Creatinine 0.81, Estim Creat Clear Calc 44.54, Est GFR (MDRD) Af Amer 88, Est GFR (MDRD) Non-Af 73, BUN/Creatinine Ratio 22.2 H, Glucose 103, Calcium 8.8,Total Bilirubin 0.50, AST 16, ALT 18, Alkaline Phosphatase 79, Total Protein 6.3L, Albumin 3.3, Globulin 3.0, Albumin/Globulin Ratio 1.1, Triglycerides 101, Cholesterol 132, LDL Cholesterol 65, VLDL Cholesterol 20, HDL Cholesterol 47, TSH 3.89 H Cardiology Labs/Tests 03/12/23 00:38: WBC 7.1, RBC 4.42, Hgb 13.2, Hct 39.9, MCV 90.3, MCH 29.9, MCHC 33.1, Plt Count 239, MPV 9.1, Immature Gran % (Auto) 0.800, Neut % (Auto) 60.3, Lymph % (Auto) 27.0, [place] % (Auto) 8.2, Eos % (Auto) 2.3, Baso % (Auto) 1.4 H, Absolute Neuts (auto) 4.3, Nucleated RBC % 0, PT 12.0, INR 0.9, APTT 29.2, D-Dimer Quant (PE/DVT) 0.37, Sodium 140, Potassium 4.0, Chloride 109 H, Carbon Dioxide 23.0, Anion Gap 8, BUN 24 H, Creatinine 0.91, Est GFR (MDRD) Af Amer 77,Est GFR (MDRD) Non-Af 64, BUN/Creatinine Ratio 26.5 H, Glucose 124 H, Calcium 8.9 03/12/23 06:15: WBC 7.2, RBC 4.25, Hgb 12.6, Hct 38.6, MCV 90.8, MCH 29.6, MCHC 32.6, Plt Count 211, MPV 9.3, Sodium 142, Potassium 3.8, Chloride 112 H, Carbon Dioxide 25.0, Anion Gap 5, BUN 18, Creatinine 0.81, Est GFR (MDRD) Af Amer 88, Est GFR (MDRD) Non-Af 73, BUN/Creatinine Ratio 22.2 H, Glucose 103, Calcium 8.8,Total Bilirubin 0.50, Triglycerides 101, Cholesterol 132, LDL Cholesterol 65, VLDL Cholesterol 20, HDL Cholesterol 47 Rhythm: EKG: ECHO: Stress Test: Cardiac Cath: PCI: CT Surgery: Holter monitor: EPS: PPM: CXR: Chest CT Scan: Radiography Diagnostic Testing: Radiology Impression Chest X-Ray 03/12/23 00:23 IMPRESSION: Mild prominence of the right hilum which may represent an enlarged right pulmonary artery possible pulmonary hypertension versus lymphadenopathy. Borderline cardiac enlargement. Electronically Signed: Radha iLttle MD at 1:14 EST Reading Location ID and State: [facility] / [place] Tel , Service support , 03/12/23 1624 <Electronically signed by Kendal Hoffmann MD> Cosigner Signature (if applicable): 03/12/23 1124 <Electronically signed by Claribel FERREIRA> CC: Dr. Kendal Hoffmann MD; Dr. Lynne Tabares DO; Dr. Elis Cardenas DO~ Signed [facility] Work Phone: 1(264) 176-159711-17-2023 Progress note Author Alfonso Anderson [facility] March 12, 2023 12:52pm Note Date/Time March 12, 2023 9:00am [facility] Medical Records Department [address] [place] [address] Progress Note - Hospitalist 03/12/23 0900 MR#: [id number] Acct: [id number] Name: AUBREYLATOYALILLIANA RAYSHAWN Rep #:[id number] : 1945 77 From: Alfonso Anderson MD PCP: Dr. Elis Cardenas, DO Status:ADM IN Location: [place] [address] Reason for Visit Reason for Visit: Diagnoses Non-ST elevation (NSTEMI) myocardial infarction (03/12/23) Subjective Subjective Patient is a 77-year-old lady admitted with chest pain found to have elevated troponin consistent with acute non-STEMI treatment initiated per protocol patient admitted to monitored bed for further management Objective Data Objective Data Vital Signs: Vital Signs Temp Pulse Resp BP Pulse Ox O2 Del Method 98.3 F 69 18 148/71 H 94 Room Air 03/12/23 08:24 03/12/23 08:38 03/12/23 08:38 03/12/23 08:24 03/12/23 08:24 03/12/23 08:38 Oxygen Delivery Method Room Air Weight: 80.7 kg Body Mass Index (BMI) 32.5 Intake & Output: Intake and Output for Last 24 Hours 03/10/23 03/11/23 03/12/23 23:59 23:59 23:59 Intake Total 0 / 0 Output Total 0 / 0 Balance 0 / 0 Lab / Micro Data 03/12/23 06:15 03/12/23 06:15 Labs: Laboratory Results - last 24 hr 03/12/23 00:38: WBC 7.1, RBC 4.42, Hgb 13.2, Hct 39.9, MCV 90.3, MCH 29.9, MCHC 33.1, RDW Std Deviation 44.1 H, RDW Coeff of Jennifer 13.4, Plt Count 239, MPV 9.1, Immature Gran % (Auto) 0.800, Neut % (Auto) 60.3, Lymph % (Auto) 27.0, [place] % (Auto) 8.2, Eos % (Auto) 2.3, Baso % (Auto) 1.4 H, Absolute Neuts (auto) 4.3, Absolute Lymphs (auto) 1.92, Nucleated RBC % 0, PT 12.0, INR 0.9, APTT 29.2, D-Dimer Quant (PE/DVT) 0.37, Sodium 140, Potassium 4.0, Chloride 109 H, Carbon Dioxide 23.0, Anion Gap 8, BUN 24 H, Creatinine 0.91, Estim Creat Clear Calc 39.65, Est GFR (MDRD) Af Amer 77, Est GFR (MDRD) Non-Af 64, BUN/Creatinine Ratio26.5 H, Glucose 124 H, Calcium 8.9, Troponin I High Sens 88 H 03/12/23 02:50: Troponin I High Sens 400 H* 03/12/23 06:15: WBC 7.2, RBC 4.25, Hgb 12.6, Hct 38.6, MCV 90.8, MCH 29.6, MCHC 32.6, RDW Std Deviation 44.0 H, RDW Coeff of Jennifer 13.2, Plt Count 211, MPV 9.3, Sodium 142, Potassium 3.8, Chloride 112 H, Carbon Dioxide 25.0, Anion Gap 5, BUN18, Creatinine 0.81, Estim Creat Clear Calc 44.54, Est GFR (MDRD) Af Amer 88, Est GFR (MDRD) Non-Af 73, BUN/Creatinine Ratio 22.2 H, Glucose 103, Calcium 8.8,Total Bilirubin 0.50, AST 16, ALT 18, Alkaline Phosphatase 79, Total Protein 6.3L, Albumin 3.3, Globulin 3.0, Albumin/Globulin Ratio 1.1, Triglycerides 101, Cholesterol 132, LDL Cholesterol 65, VLDL Cholesterol 20, HDL Cholesterol 47, TSH 3.89 H Radiography Diagnostic Testing: Radiology Impression Chest X-Ray 03/12/23 00:23 IMPRESSION: Mild prominence of the right hilum which may represent an enlarged right pulmonary artery possible pulmonary hypertension versus lymphadenopathy. Borderline cardiac enlargement. Electronically Signed: Radha Little MD at 1:14 EST Reading Location ID and State: [facility] / [place] Tel , Service support , Physical Exam Narrative GENERAL: cooperative HEENT: Atraumatic; normocephalic EYES; Anicteric, Normal Conjunctiva NECK; supple, normal thyroid, RESPIRATORY: Diminished to auscultation CARDIOVASCULAR: Regular S1 S2, GI: soft, normoactive bowel sounds, : No Renal angle tenderness; EXTREMITIES: No edema, no clubbing, MUSCULOSKELETAL: no muscle wasting NEURO: Awake; no lateralizing signs. SKIN: No Rash PSYCH; Flat affect Assessment & Plan Assessment/Plan (1) Acute non-ST elevation myocardial infarction (NSTEMI): PLAN: Plan Patient is a 77-year-old lady admitted with chest pain found to have elevated troponin consistent with acute non-STEMI treatment initiated per protocol patient admitted to monitored bed for further management 1. Acute non-STEMI ? Treatment initiated per protocol. Aspirin for management ordered 2D echo consult placed to cardiology patient kept n.p.o. for left heart catheterization with intervention if warranted 2. Hypertension - Blood pressure controlled, home medications continued with dose adjustment as needed 3. Dyslipidemia -Patient is on statin therapy, continued at home dose 4 hypothyroidism/history of thyroid cancer -Status post thyroidectomy in 1993 -Continue home levothyroxine 5. History of TIAs -Patient is on antiplatelet therapy with aspirin continued 6. Class I obesity with BMI of 32.5 ? Complicating care weight loss advised 7. History of uterine prolapse -status post hysterectomy 8. DVT prophylaxis ? Patient is fully anticoagulated Time spent in the patient's overall evaluation,decision-making process, review of diagnostic data, adjustment of management, discussion with other providers, nursing nursing and ancillary staff involved in patient's care documentation, 50 Minutes Charges/Coding Visit Charges Inpatient E&M: 89072 Subs Hosp L3 03/12/23 1252 <Electronically signed by Alfonso Anderson MD> Cosigner Signature (if applicable): CC: ~ Signed [facility] Work Phone: 1(890) 348-637811-17-2023 Discharge summary Author Martin Wilkins [facility] March 12, 2023 8:22am Note Date/Time March 12, 2023 4:25am [facility] Medical Records Department [address] [place] [address] Emergency Department Summary 03/12/23 MR#: [id number] Acct: [id number] Name: LILLIANA HUBER Rep #:[id number] : 1945 77 From: Martin Wilkins DO PCP: Dr. Elis Cardenas DO Status:ADM IN Location: [address] History of Present Illness Chief Complaint: Chest Pain Informant: patient and spouse/S.O. Narrative Narrative: Patient is a 77-year-old female with past medical history of hypertension hyperlipidemia and previous stroke. She states around 10 PM she developed some vague midsternal chest discomfort that lasted for approximately an hour and thenspontaneously resolved. She states that she was concerned this could be cardiacin nature based on the presentation and therefore comes in for evaluation. He denies any recent surgery or travel history of DVT or PE and she states she doesnot take any type of blood thinner other than a baby aspirin [facility] Medical History (Updated 03/12/23 @ 08:[address] Martin Wilkins, DO) Aphthous ulcer of mouth Arthritis Corrales's palsy Benign essential hypertension Cancer Chest pain Depression GERD (gastroesophageal reflux disease) Hearing loss, left High cholesterol History of echocardiogram History of stress test History of stroke Hyperlipidemia Hypertension Hypothyroidism Leg cramps Menieres disease Non-smoker Post-menopausal Stress incontinence Stroke/cerebrovascular accident Thyroid disease TIA (transient ischemic attack) Wears glasses Wears hearing aid Home Medications amlodipine 5 mg tablet 5 mg PO DAILY 09/22/15 [History Last Taken 05/28/22] lisinopril 20 mg tablet 20 mg PO DAILY #30 tabs 10/11/15 [Rx Last Taken 05/28/22] atenolol 25 mg tablet 25 mg PO DAILY 12/25/21 [History Last Taken 05/28/22] levothyroxine 175 mcg tablet 137 mcg PO DAILY 12/25/21 [History Last Taken 05/28/22] B-complex with vitamin C 1 tab PO DAILY 05/21/22 [History Last Taken Unknown] ascorbic acid (vitamin C) 500 mg tablet (Vitamin C) 500 mg PO DAILY 05/21/22 [History Last Taken Unknown] aspirin 81 mg capsule 81 mg PO DAILY 05/21/22 [History Last Taken 05/19/22] calcium carb,cit ER 600 mg-vit D3 12.5 mcg (500 unit) tablet,ext.rel (Citracal- D3 Slow Release) 2 tab PO DAILY 05/21/22 [History Last Taken Unknown] cholecalciferol (vitamin D3) 125 mcg (5,000 unit) tablet (Vitamin D3) 125 mcg PODAILY 05/21/22 [History Last Taken Unknown] garlic 1,000 mg capsule 1,000 mg PO DAILY 05/21/22 [History Last Taken Unknown] lysine 1,000 mg tablet 1,000 mg PO DAILY 05/21/22 [History Last Taken Unknown] turmeric root extract 500 mg capsule 500 mg PO DAILY 05/21/22 [History Last Taken Unknown] zinc lozenges 15 mg 15 mg PO DAILY 05/21/22 [History Last Taken Unknown] prednisone 20 mg tablet 40 mg (2 x 20 mg) PO DAILY #8 tabs 10/21/22 [Rx Last Taken Unknown] atorvastatin 40 mg tablet 40 mg PO DAILY #90 tabs 02/15/23 [Rx Last Taken Unknown] citalopram 10 mg tablet 10 mg PO DAILY #30 tabs 02/16/23 [Rx Last Taken Unknown] Allergy/AdvReac Type Severity Reaction Status Date / Time Sulfa (Sulfonamide Allergy Intermediate Rash Verified 03/12/23 00:21 Antibiotics) pepper (genus Capsicum) Allergy Swelling Verified 03/12/23 00:21 adhesive tape AdvReac Intermediate Rash Verified 03/12/23 00:21 Penicillins AdvReac Unknown Rash Verified 03/12/23 00:21 Family History Mother Heart disease Surgical History H/O breast biopsy H/O dilation and curettage H/O hernia repair H/O tubal ligation History of thyroidectomy Hx of colonoscopy Hx of surgical procedure Status post hysterectomy with oophorectomy Social History Smoking Status: Never smoker alcohol intake: never substance use type: does not use caffeine: Yes seatbelt use: always do you feel safe at home: Yes additional social history: - [place] ROS ROS ED Constitutional Constitutional ED: Denies chills or fever(s) ENT ENT ED: Denies sore throat Cardiovascular Cardiovascular: Reports chest pain; Denies palpitations or racing heartbeat Respiratory/Chest Respiratory/Chest: Denies cough or dyspnea Gastrointestinal Gastrointestinal: Reports nausea; Denies abdominal pain, diarrhea or vomiting Genitourinary Genitourinary ED: Denies dysuria Musculoskeletal Musculoskeletal: Denies back pain or myalgias Integumentary Denies rash Neurologic Neurologic: Denies headache(s) Hematologic/Lymphatic Hematologic/Lymphatic: Denies easy bleeding or easy bruising EXAM Physical Exam Const Vital Signs: 03/12/23 00:19 03/12/23 00:48 03/12/23 00:49 Temperature 97.9 F Temperature Source Temporal Pulse Rate 71 Respiratory Rate 18 Respiratory Effort Normal Non-Labored Blood Pressure 167/72 H Blood Pressure Mean 103 Pulse Ox 99 Oxygen Delivery Method Room Air Room Air 03/12/23 00:50 03/12/23 03:56 Temperature 97.9 F Temperature Source Pulse Rate 67 Respiratory Rate 18 Respiratory Effort Blood Pressure 146/74 H 151/69 H Blood Pressure Mean 98 96 Pulse Ox 96 Oxygen Delivery Method Positive well nourished and well developed General Appearance ED: well developed HEENT HEENT Narrative: Normocephalic atraumatic Eyes PERRL and EOMs intact bilaterally General Eye ED: Negative for scleral icterus Neck supple and No no JVD Chest Wall palpation of chest normal Chest Narrative: No bony deformity or crepitance noted Resp normal respiratory effort and clear to auscultation bilaterally Cardio regular rate and regular rhythm Rate: other Other Details: Radial and carotid pulses are equal and symmetric GI normal to inspection, nondistended, normoactive bowel sounds, non-tender and non-distended GI Narrative: No voluntary guarding or rigidity no pulsatile mass or fluid wave Auscultation: normoactive bowel sounds Palpation: soft Extremity normal to inspection Extremity Narrative: No asymmetric edema no pitting edema negative Homans' sign bilaterally Neuro oriented x3 Neuro Narrative: Patient has chronic changes from previous CVA such as mild facial droop but no new or acute findings Sensorium / Orientation: alert Psych mental status grossly normal Skin no rashes or lesions noted MDM MDM MDM Narrative Medical decision making narrative: Patient presented to the ER with spontaneous resolution of her chest pain but her history and risk factors are concerning for acute coronary syndrome. Also concern for potential pneumonia versus pneumothorax versus pulmonary embolus versus dissection. Patient blood work was obtained which shows initial troponinof 88 concerning for acute coronary syndrome but D-dimer was negative going against PE or dissection. The patient had spontaneous resolution of pain. Delta troponin climbed to 400 and there are new T wave inversions concerning forischemia. Case was then discussed with cardiology on-call who recommends heparin infusion and admission to the hospital for heart cath later today. Thisplan of care was discussed with the patient and and both are agreeable to it. Was in contact to agrees except admission at this time to continue to monitor patient's symptoms and troponin values while she awaits heart cath History & Record Review Discussion w/independent historian: Patient and Significant other Lab Data Attestation: I reviewed the patient's lab results. Labs: Laboratory Results - last 24 hr 03/12/23 03/12/23 00:38 02:50 WBC 7.1 RBC 4.42 Hgb 13.2 Hct 39.9 MCV 90.3 MCH 29.9 MCHC 33.1 RDW Std Deviation 44.1 H RDW Coeff of Jennifer 13.4 Plt Count 239 MPV 9.1 Immature Gran % (Auto) 0.800 Neut % (Auto) 60.3 Lymph % (Auto) 27.0 [place] % (Auto) 8.2 Eos % (Auto) 2.3 Baso % (Auto) 1.4 H Absolute Neuts (auto) 4.3 Absolute Lymphs (auto) 1.92 Nucleated RBC % 0 PT 12.0 INR 0.9 APTT 29.2 D-Dimer Quant (PE/DVT) 0.37 Sodium 140 Potassium 4.0 Chloride 109 H Carbon Dioxide 23.0 Anion Gap 8 BUN 24 H Creatinine 0.91 Estim Creat Clear Calc 39.65 Est GFR (MDRD) Af Amer 77 Est GFR (MDRD) Non-Af 64 BUN/Creatinine Ratio 26.5 H Glucose 124 H Calcium 8.9 Troponin I High Sens 88 H 400 H* Radiography Diagnostic Testing: Clinical Impression(s) from Imaging Studies Chest X-Ray 03/12/23 00:23 IMPRESSION: Mild prominence of the right hilum which may represent an enlarged right pulmonary artery possible pulmonary hypertension versus lymphadenopathy. Borderline cardiac enlargement. Electronically Signed: Radha Little MD at 1:14 EST Reading Location ID and State: [facility] / [place] Tel , Service support , Chest x-ray is interpreted by the emergency medicine physician reveals mild prominence of the hilum without acute infiltrate pneumothorax pleural effusion or widening of the mediastinum Management Discussion w/another healthcare provider: Hospitalist and Pressure Testing Technician Critical Care Time Critical Care Time: Yes Critical care time (excluding procedures): Discussing w/Patient &/or Family/CareGiver, Discussing w/Consultants and - (Critical care time of 33 minutes) Discharge Plan Dx/Rx/DC Orders Clinical Impression: Acute non-ST elevation myocardial infarction (NSTEMI), Hyperlipidemia, Hypertension Disposition Disposition: Acute Care Hospital [facility] Discharge Date/Time: 03/12/23 05:15 What to do if you have Problems For any increased pain, shortness of breath, bleeding, nausea or vomiting, chestpain, or any unexpected problems, contact your Primary Care Provider. Call [facility] ([phone]) or report to the closest Emergency Room. Call 911 if necessary. 03/12/23 0822 <Electronically signed by Martin Wilkins DO> Cosigner Signature (if applicable): CC: Dr. Elis Cardenas DO ~ Signed [facility] Work Phone: 1(222) 800-357611-17-2023 History and physical note Author Lynne Tabares [facility] March 12, 2023 4:55am Note Date/Time March 12, 2023 4:35am [facility] Medical Records Department [address] [place] [id number] H&P Exam - Hospitalist 03/12/23 0432 MR#: [id number] Acct: [id number] Name: LILLIANA HUBER Rep #:[id number] : 1945 77 From: Lynne Tabares DO PCP: Dr. Elis Cardenas DO Status:ADM IN [id number] HPI - General General Date of Admission: 03/12/23 Date of Service: 03/12/23 Chief Complaint: Chest pain HPI Narrative LILLIANA HUBER, is a 77 F who presented to the emergency department at [facility] on 03/12/2023 just after midnight complaining of chest pain that started about an hour prior to presentation that goes across her chest fromright to left. She denied any radiation of symptoms elsewhere or shortness of breath that was associated. She also denied any associated diaphoresis, nausea or vomiting. She has a family history of coronary disease in her mother and wasnever a smoker. She has a history of hypertension, hyperlipidemia as well as TIAs and takes a daily baby aspirin. She states her symptoms are currently resolved. Vital signs at presentation showed temperature of 97.9, heart rate 67, blood pressure 146/74, respiratory rate was 18 oxygen saturations were 96% room air. Her CBC was unremarkable. Coags are pending. D-dimer was 0.37. Chemistry panel was overall unremarkable. Troponin was initially 88 with a repeat of 400. Her initial EKG was unremarkable however repeat EKG was done at about 2 hours which showed new T wave inversions in leads V2 through V6. Chest x-ray showed prominence in the right hilum which was suggested to represent an enlarged rightpulmonary artery versus lymphadenopathy and borderline cardiac enlargement [facility] Medical History Aphthous ulcer of mouth Arthritis Corrales's palsy Benign essential hypertension Cancer Depression GERD (gastroesophageal reflux disease) High cholesterol History of echocardiogram History of stress test History of stroke Hyperlipidemia Hypertension Hypothyroidism Leg cramps Menieres disease Non-smoker Post-menopausal Stress incontinence Thyroid disease TIA (transient ischemic attack) Wears glasses Wears hearing aid Home Medications amlodipine 5 mg tablet 5 mg PO DAILY 09/22/15 [History Last Taken 05/28/22] lisinopril 20 mg tablet 20 mg PO DAILY #30 tabs 10/11/15 [Rx Last Taken 05/28/22] atenolol 25 mg tablet 25 mg PO DAILY 12/25/21 [History Last Taken 05/28/22] levothyroxine 175 mcg tablet 137 mcg PO DAILY 12/25/21 [History Last Taken 05/28/22] B-complex with vitamin C 1 tab PO DAILY 05/21/22 [History Last Taken Unknown] ascorbic acid (vitamin C) 500 mg tablet (Vitamin C) 500 mg PO DAILY 05/21/22 [History Last Taken Unknown] aspirin 81 mg capsule 81 mg PO DAILY 05/21/22 [History Last Taken 05/19/22] calcium carb,cit ER 600 mg-vit D3 12.5 mcg (500 unit) tablet,ext.rel (Citracal- D3 Slow Release) 2 tab PO DAILY 05/21/22 [History Last Taken Unknown] cholecalciferol (vitamin D3) 125 mcg (5,000 unit) tablet (Vitamin D3) 125 mcg PODAILY 05/21/22 [History Last Taken Unknown] garlic 1,000 mg capsule 1,000 mg PO DAILY 05/21/22 [History Last Taken Unknown] lysine 1,000 mg tablet 1,000 mg PO DAILY 05/21/22 [History Last Taken Unknown] turmeric root extract 500 mg capsule 500 mg PO DAILY 05/21/22 [History Last Taken Unknown] zinc lozenges 15 mg 15 mg PO DAILY 05/21/22 [History Last Taken Unknown] prednisone 20 mg tablet 40 mg (2 x 20 mg) PO DAILY #8 tabs 10/21/22 [Rx Last Taken Unknown] atorvastatin 40 mg tablet 40 mg PO DAILY #90 tabs 02/15/23 [Rx Last Taken Unknown] citalopram 10 mg tablet 10 mg PO DAILY #30 tabs 02/16/23 [Rx Last Taken Unknown] Allergy/AdvReac Type Severity Reaction Status Date / Time Sulfa (Sulfonamide Allergy Intermediate Rash Verified 03/12/23 00:21 Antibiotics) pepper (genus Capsicum) Allergy Swelling Verified 03/12/23 00:21 adhesive tape AdvReac Intermediate Rash Verified 03/12/23 00:21 Penicillins AdvReac Unknown Rash Verified 03/12/23 00:21 Family History Mother Heart disease Surgical History H/O breast biopsy H/O dilation and curettage H/O hernia repair H/O tubal ligation History of thyroidectomy Hx of colonoscopy Hx of surgical procedure Status post hysterectomy with oophorectomy Social History Smoking Status: Never smoker alcohol intake: never substance use type: does not use caffeine: Yes seatbelt use: always do you feel safe at home: Yes additional social history: - [place] ROS Constitutional Constitutional: Denies anorexia, change in weight, chills, fatigue, fever(s), malaise, night sweats, weakness or other Eyes Eyes: Denies blurry vision, change in eye color, change in vision, discharge from eye(s), double vision, erythema, eye pain, loss of vision or other ENT HEENT: Denies abnormal hearing, dysphagia, ear pain, epistaxis, headache(s), hearing loss, nasal congestion, nasal discharge, post nasal drip, sinus pressure, sore throat or other Cardiovascular Cardiovascular: Reports chest pain; Denies claudication, dyspnea on exertion, edema, lightheadedness, orthopnea, palpitations, paroxysmal nocturnal dyspnea, rapid heart rate, syncope or other Respiratory/Chest Respiratory/Chest: Denies cough, dyspnea, excessive phlegm production, hemoptysis, productive cough, shortness of breath at rest, shortness of breath with exertion, wheezing or other Gastrointestinal Gastrointestinal: Denies abdominal pain, coffee ground emesis, constipation, diarrhea, dyspepsia, hematemesis, hematochezia, loose stools, melena, nausea, vomiting or other Genitourinary Genitourinary: Denies burning urination, difficulty urinating, dysuria, hematuria, nocturia, urinary frequency, urinary hesitancy, urinary incontinence,urinary urgency or other Musculoskeletal Musculoskeletal: Denies arthralgias, back pain, joint pain, joint stiffness, joint swelling, myalgias, neck pain or other Neurologic Neurologic: Denies abnormal gait, abnormal speech, confusion, disequilibrium, dizziness, focal weakness, headache(s), numbness, paresthesias, seizure-like activity, seizures, syncope, tingling, tremor(s) or other Psychiatric Psychiatric: Denies anxiety, depression, homicidal ideation, suicidal ideation or other Endocrine Endocrinology: Denies change in body appearance, cold intolerance, excessive sweating, heat intolerance, polydipsia, polyuria or other Hematologic/Lymphatic Hematologic/Lymphatic: Denies anemia, easy bleeding, easy bruising, lymphadenopathy or other Allergic/Immunologic Allergic/Immunologic: Denies rhinitis, hives, eczemia, asthma or other Vital Signs Vital Signs Vital Signs: 03/12/23 00:19 03/12/23 00:48 03/12/23 00:49 Temperature 97.9 F Temperature Source Temporal Pulse Rate 71 Respiratory Rate 18 Respiratory Effort Normal Non-Labored Blood Pressure 167/72 H Blood Pressure Mean 103 Pulse Ox 99 Oxygen Delivery Method Room Air Room Air 03/12/23 00:50 03/12/23 03:56 Temperature 97.9 F Temperature Source Pulse Rate 67 Respiratory Rate 18 Respiratory Effort Blood Pressure 146/74 H 151/69 H Blood Pressure Mean 98 96 Pulse Ox 96 Oxygen Delivery Method Weight Weight: 83.007 kg Body Mass Index (BMI) 33.5 Physical Exam Const alert, oriented x3, no apparent distress and well nourished; Negative for average body habitus Constitutional Narrative: Obese, older, white female, sitting up in bed, appears comfortable and nontoxic,nursing at bedside General Appearance: cooperative HEENT normocephalic, head/scalp atraumatic, hearing grossly normal bilaterally and moist oral mucous membranes HEENT Narrative: Dentition is poor, Mallampati is 2-3, no thrush Resp normal respiratory effort, no retractions, no use of accessory muscles and clearto auscultation bilaterally Auscultation: Negative for rales, rhonchi or wheezes Cardio regular rate, regular rhythm, S1 normal heart sound, S2 normal heart sound, no murmurs, no rub, no gallops and no clicks GI normal to inspection, nondistended, normoactive bowel sounds, soft to palpation and non-tender Extremity no clubbing, cyanosis or edema Extremity Narrative: Pedal pulses are 2+, radial pulses are 2+ Neuro oriented x3, moves all extremities and no focal motor deficits Speech: speech normal Psych affect normal Psych Narrative: Very pleasant, interacts appropriately Results Lab / Micro Data 03/12/23 00:38 03/12/23 00:38 Labs: Laboratory Results - last 24 hr 03/12/23 00:38: WBC 7.1, RBC 4.42, Hgb 13.2, Hct 39.9, MCV 90.3, MCH 29.9, MCHC 33.1, RDW Std Deviation 44.1 H, RDW Coeff of Jennifer 13.4, Plt Count 239, MPV 9.1, Immature Gran % (Auto) 0.800, Neut % (Auto) 60.3, Lymph % (Auto) 27.0, [place] % (Auto) 8.2, Eos % (Auto) 2.3, Baso % (Auto) 1.4 H, Absolute Neuts (auto) 4.3, Absolute Lymphs (auto) 1.92, Nucleated RBC % 0, D-Dimer Quant (PE/DVT) 0.37, Sodium 140, Potassium 4.0, Chloride 109 H, Carbon Dioxide 23.0, Anion Gap 8, BUN24 H, Creatinine 0.91, Estim Creat Clear Calc 39.65, Est GFR (MDRD) Af Amer 77, Est GFR (MDRD) Non-Af 64, BUN/Creatinine Ratio 26.5 H, Glucose 124 H, Calcium 8.9, Troponin I High Sens 88 H 03/12/23 02:50: Troponin I High Sens 400 H* Imagaing Radiology Impression Chest X-Ray 03/12/23 00:23 IMPRESSION: Mild prominence of the right hilum which may represent an enlarged right pulmonary artery possible pulmonary hypertension versus lymphadenopathy. Borderline cardiac enlargement. Electronically Signed: Radha Little MD at 1:14 EST , Assessment & Plan Assessment/Plan (1) Acute non-ST elevation myocardial infarction (NSTEMI): PLAN: Plan NSTEMI -Initial troponin 88 with a delta of 400 -Initial EKG was unremarkable however repeat shows new T wave inversions in leadV2 through V6 -Continue home baby aspirin -Continue home atenolol -Increase atorvastatin from 40 mg to 80 mg for pleiotropic effects -Continue home lisinopril -Check hemoglobin A1c -Check lipid panel -Heparin drip -Check echocardiogram -Consult cardiology HTN/HPL -Continue home amlodipine -Continue home atenolol -Continue atorvastatin but increase dose is no -Continue home lisinopril Hypothyroidism/history of thyroid cancer -Status post thyroidectomy in 1993 -Continue home levothyroxine History of TIAs -Continue home aspirin -Continue outpatient follow-up with neurology History of uterine prolapse -status post hysterectomy Obesity -BMI 33.5 -Recommend weight loss -Complicates treatment, prognosis, outcomes DVT prophylaxis -Patient will be full anticoagulation with heparin drip due to the above NSTEMI CODE STATUS -Full code as verified on admission Charges/Coding Visit Charges Inpatient E&M: 76418 Init Hosp L2 03/12/23 0455 <Electronically signed by Lynne Tabares DO> Cosigner Signature (if applicable): CC: Dr. Lynne Tabares DO; Dr. Elis Cardenas DO~ Signed [facility] Work Phone: 1(680) 442-130402-03-[address] Virk [facility] May 29, 2022 8:30am Note Date/Time May 29, 2022 8 :30am [facility] Medical Records Department [address] [place] [address] Progress Note - Urology 05/29/22 0826 MR#: [id number] Acct: [id number] Name: LILLIANA HUBER Rep #:[id number] : 1945 76 From: Kourtney Tim PCP: Dr. Elis Cardenas, DO Status:[facility] Location: MS3 [id number] Subjective Subjective She is awake, comfortable in bed. No issues overnight. This morning when she got out of bed she reports that her left face felt transient. By the time that she got back into bed this had resolved. She does have a significant stroke history with changes on her left side already. She is not passing gas, but is tolerating p.o. intake just fine. There is no nausea or vomiting. Objective Data Objective Data Vital Signs: Vital Signs Temp Pulse Resp BP Pulse Ox O2 Del Method O2 Flow Rate 98.6 F 80 16 136/62 H 95 Room Air 2 05/29/22 04:00 05/29/22 04:00 05/29/22 04:00 05/29/22 04:00 05/29/22 04:00 05/29/22 04:00 05/28/22 11:54 Oxygen Flow Rate (L/min) 2 Oxygen Delivery Method Room Air Weight: 81 kg Body Mass Index (BMI) 32.6 Intake & Output: Intake and Output for Last 24 Hours 05/27/22 05/28/22 05/29/22 23:59 23:59 23:59 Intake Total 2500 / 3300 1300 / 1300 Output Total 2180 / 3180 2400 / 2400 Balance 320 / 120 -1100 / -1100 Lab / Micro Data Result Diagrams: 05/29/22 05:34 Labs: Laboratory Results - last 24 hr 05/29/22 05:34: WBC 12.2 H, RBC 3.92 L, Hgb 11.8 L, Hct 36.0 L, MCV 91.8, MCH 30.1, MCHC 32.8, RDW Std Deviation 44.8 H, RDW Coeff of Jennifer 13.3, Plt Count 222,MPV 9.6 Radiography Diagnostic Testing: Radiology Impression Brain CT 05/29/22 06:41 IMPRESSION: 1. No intracranial hemorrhage or acute territorial infarction. 2. Chronic lacunar infarcts in the left thalamus and basal ganglia, similar compared to the prior. 3. Senescent changes. Electronically Signed: El Aguilera MD at 7:16 EST , Physical Exam Const alert, oriented x3 and no apparent distress HEENT normocephalic and head/scalp atraumatic Neck supple General: trachea midline Chest inspection of chest normal Resp normal respiratory effort, normal air movement and no retractions Cardio regular rate GI soft to palpation, non-tender and non-distended Narrative: Mohan catheter clear. The Mohan catheter and vaginal packing were removed without incident. Skin no rashes or lesions noted Neuro oriented x3 and CN's II-XII intact bilaterally Psych mental status grossly normal and thought process normal Assessment & Plan Assessment/Plan (1) Status post hysterectomy with oophorectomy: (2) Uterovaginal prolapse, incomplete: (3) Stress incontinence: PLAN: Plan Medicine evaluation for transient left facial numbness. Trial of void in home later today if okay with medicine. 05/29/22829 <Electronically signed by Kourtney Virk MD> Cosigner Signature (if applicable): CC: ~ Signed [facility] Work Phone: 1(459) 429-536802-03-[address] Rao [facility] May 29, 2022 8:20am Note Date/Time May 29, 2022 8 :18am [facility] Medical Records Department [address] [place] [address] Progress Note - OBGYN 05/29/22812 MR#: [id number] Acct: [id number] Name: LILLIANA HUBER Rep #:[id number] : 1945 76 From: Afua Barry DO PCP: Dr. Elis Cardenas, DO Status:[facility] Location: MS3 [id number] Subjective Subjective Patient is laying in bed comfortably without complaints. She states that she slept on an off during the night. This am when she woke up and stood up she feltwoozy Nursing called the brand activation manager HEBREW PROFESSOR and reported facial droop. pt states thatshe has had multiple TIA's, has short term memory loss but has had a chronic facial droop. She is asking for something for depression and is tearful stating that her daughter committed suicide back in 1988 and she never got over this. She denies current suicidal ideations. She tells me that in the past after her suicide, she thought about taking her own life but she could not do it and wouldnot do it. Objective Data Objective Data Vital Signs: Vital Signs Temp Pulse Resp BP Pulse Ox O2 Del Method O2 Flow Rate 98.6 F 80 16 136/62 H 95 Room Air 2 05/29/22 04:00 05/29/22 04:00 05/29/22 04:00 05/29/22 04:00 05/29/22 04:00 05/29/22 04:00 05/28/22 11:54 Oxygen Flow Rate (L/min) 2 Oxygen Delivery Method Room Air Weight: 178 lb 9.191 oz Body Mass Index (BMI) 32.6 Intake & Output: Intake and Output for Last 24 Hours 05/27/22 05/28/22 05/29/22 23:59 23:59 23:59 Intake Total 2500 / 3300 1300 / 1300 Output Total 2180 / 3180 2400 / 2400 Balance 320 / 120 -1100 / -1100 Lab / Micro Data Result Diagrams: 05/29/22 05:34 Labs: Laboratory Results - last 24 hr 05/29/22 05:34: WBC 12.2 H, RBC 3.92 L, Hgb 11.8 L, Hct 36.0 L, MCV 91.8, MCH 30.1, MCHC 32.8, RDW Std Deviation 44.8 H, RDW Coeff of Jennifer 13.3, Plt Count 222,MPV 9.6 Radiography Diagnostic Testing: Radiology Impression Brain CT 05/29/22 06:41 IMPRESSION: 1. No intracranial hemorrhage or acute territorial infarction. 2. Chronic lacunar infarcts in the left thalamus and basal ganglia, similar compared to the prior. 3. Senescent changes. Electronically Signed: El Aguilera MD at 7:16 EST , ROS Constitutional Constitutional: Reports systems reviewed and no addt'l complaints, except as documented Cardiovascular Cardiovascular: Denies chest pain, dizziness, dyspnea or irregular heart rhythm Respiratory/Chest Respiratory/Chest: Denies cough, pain on inspiration or shortness of breath at rest Gastrointestinal Gastrointestinal: Denies abdominal pain, nausea or vomiting Genitourinary Genitourinary: Denies burning urination Musculoskeletal Musculoskeletal: Denies muscle cramps, muscle spasms or muscle weakness Neurologic Neurologic: Denies confusion, headache(s) or lack of coordination Psychiatric Psychiatric: Denies anxiety, behavioral changes or depression Physical Exam HEENT normocephalic Resp normal respiratory effort and normal air movement GI soft to palpation, non-tender and non-distended no CVA tenderness Extremity normal to inspection General Extremity: edema bilateral (trace ) Assessment & Plan (1) Status post hysterectomy with oophorectomy: (2) Uterovaginal prolapse, incomplete: (3) Overflow stress urinary incontinence in female: PLAN: Plan patient is s/p total vag hyst rso and vault repair POD 1 1. routine ERAS protocol postop care- increase ambulation, encourage oral intakeand oral control of pain. lovenox and scds for dvt prophylaxis, patient stable for discharge to home later today pending medicine consult. 2. CT brain is stable without acute changes. 05/29/22 0820 <Electronically signed by Afua Barry DO> Cosigner Signature (if applicable): CC: ~ Signed [facility] Work Phone: 1(236) 889-711202-02-2023 Procedure [facility] 05-28-2022 History and physical note Author Dr. Rao [facility] May 28, 2022 7:27am Note Date/Time May 28, 2022 7 :27am [facility] Medical Records Department [address] [place] [id number] History & Physical Exam 05/28/22 0725 MR#: [id number] Acct: [id number] Name: LILLIANA HUBER Rep #:[id number] : 1945 76 From: Afua Barry DO PCP: Dr. Elis Cardenas DO Status:[facility] Location: [place] [address] History and Physical Date of Admission: 05/28/22 Intake Vital Signs ? 05/14/2313:37 05/14/2313:37 Height 5 ft 2 in 5 ft 2 in BP 141/67 H ? Intake Visit Reasons:?[employer] Required: No Is patient in pain?: No Allergies adhesive tape Allergy (Verified 05/14/22 14:37) RashPenicillins Allergy (Verified 05/14/22 14:37) Rashpepper (genus Capsicum) Allergy (Verified 05/14/22 14:37) SwellingSulfa (Sulfonamide Antibiotics) Allergy (Verified 05/14/22 14:37) Rash Medications amlodipine 5 mg tablet 5 mg PO DAILY 09/22/15 [History Confirmed 05/14/22] lisinopril 20 mg tablet 20 mg PO DAILY #30 tabs 10/11/15 [Rx Confirmed 05/14/22] atenolol 25 mg tablet 25 mg PO ONCE 12/25/21 [History Confirmed 05/14/22] levothyroxine 175 mcg tablet 137 mcg PO DAILY 12/25/21 [History Confirmed 05/14/22] estradiol 0.01% (0.1 mg/gram) vaginal cream See Rx Instructions vaginal .COMPLEX#42.5 grams 02/24/22 [Rx Confirmed 05/14/22] Post menopausal: No Patient : No : No [facility] Medical History? Aphthous ulcer of mouth Corrales's palsy Benign essential hypertension Cancer GERD (gastroesophageal reflux disease) History of stroke Hyperlipidemia Hypertension Hypothyroidism Menieres disease TIA (transient ischemic attack) Surgical History? H/O breast biopsy H/O dilation and curettage H/O hernia repair H/O tubal ligation History of thyroidectomy Hx of colonoscopy Family History? Mother Heart disease Social History? Smoking Status:? Never smoker alcohol intake:? never substance use type:? does not use caffeine:? Yes seatbelt use:? always do you feel safe at home:? Yes additional social history:? - [place] HPI [facility] Details: ?LILLIANA HUBER is a 76 year old who presents for discussion about surgery.? Clay and I examined her together and she was found to have a grade 3 uterineprolapse with cracking and excoriations of the cervix. This was a big change from her exam in December when she came in for her annual check up. Pt also complains of night time bladder leakage and also leaking urine when she laughs, coughs, or sneezes.? The plan is for a vaginal hysterectomy. She saw? Dr. Virk and has an a&p repair with sling also scheduled. History ? ? ? 2 ? Elective abortions ? Hx Para ? ? ? 2 ? Spontaneous abortions ? Hx # Term Pregnancies ? Ectopic pregnancies ? Hx # Pregnancies ? Multiple births ? # of living children ? Past Pregnancies Del. Date Name GA/Weeks Outcome Route Bth Weight Infant Gen Labor Lgth Anesthesia Del Locatn Provider FOB Unknown Josh ? Unknown Kim (dec at 17) ? ROS Const ROS Unobtainable: All systems reviewed & are unremarkable except as noted in H Resp Resp: Reports system reviewed and no additional complaints, except as documented; Denies cough GI GI: Reports as per HPI Psych Psych: Reports system reviewed and no additional complaints, except as documented Exam Const General: cooperative, healthy appearing, comfortable and no acute distress Resp Effort & Inspection: normal respiratory effort Skin General: no rashes or lesions noted Psych Appearance: grossly normal Speech and Movement: speech and movement normal Coding Level of Care Code Off vis,est,level 4 Diagnoses Uterovaginal prolapse, incomplete? N81.2 Overflow stress urinary incontinence in female? N39.3; N39.490 Assessment and Plan Assessment and Plan (1) Uterovaginal prolapse, incomplete: ?Status:?Acute ?Plan: After discussing the patient's diagnosis and treatment plan options, patient wishes to proceed with surgical management.? I have discussed with the patient the risks, benefits, and alternatives of the procedure which include but are notlimited to risks of anesthesia, bleeding, infection, possible damage to bowel, bladder, or surrounding vasculature which could lead to additional surgery to evaluate any complications.? Patient agrees to procedure and wishes to proceed.?ACOG/uptodate references given for additional information regarding procedure.? plan is to proceed with a total vaginal hysterectomy, possible bso, and Dr. virk portion of the surgery to includ A&P repair, sling, and cysto. (2) Overflow stress urinary incontinence in female: ?Status:?Acute Plan After discussing the patient's diagnosis and treatment plan options, patient wishes to proceed with surgical management.? I have discussed with the patient the risks, benefits, and alternatives of the procedure which include but are notlimited to risks of anesthesia, bleeding, infection, possible damage to bowel, bladder, or surrounding vasculature which could lead to additional surgery to evaluate any complications.? Patient agrees to procedure and wishes to proceed.?ACOG/uptodate references given for additional information regarding procedure.? UPDATE- I have seen the patient and performed any clinically relevant updates to the history and physical exam. Afua Barry DO 05/28/22 0727 <Electronically signed by Afua Barry DO> Cosigner Signature (if applicable): CC: Dr. Afua Barry DO; Dr. Elis Cardenas DO~ Signed [facility] Work Phone: 1(731) 356-162602-02-2023 Procedure [facility] Consult note Author Rachel Holman [facility] Note Date/Time November 24, 2024 12: 49pm [facility] Medical Records Department [address] [place] [address] Consultation - Neurology 11/24/24 1248 MR#: [id number] Acct: [id number] Name: LILLIANA HUBER Rep #:[id number] : 1945 79 From: Rachel Holman MD PCP: Dr. Elis Cardenas DO Status:[facility] Location: [place] [address] Assessment and Plan: Neuro Assessment/Plan LILLIANA HUBER, is a 79 woman with history of basilar stenosis, CAD, on ASA/Plavix/Statin, who presented to [facility] ED on 11/23/2024 with transient weird sensation in the R side of her face. SBP upon presentation is 179. MRI brain with no acute findings LDL 75 Unsure of etiology, could be related to blood pressure elevation SBP 179 since patient says this is very unusual for her.. Recommend blood pressure management With the description she had, less likely TIA. However she is already on ASA/Plavix/statin Risk factor management: BP <130/90, Statin for LDL <70, diabetes management [id number] 7%, no smoking, and alcohol in moderation. F/u with PCP in 2 weeks. I personally attended this patient and spent a total time of 45 minutes evaluating this patient including clinical assessment, review of chart, medical history imaging, and determining appropriate treatment and workup. HPI Consult Data Date of Consult: 11/24/24 HPI Narrative HPI Narrative: LILLIANA HUBER, is a 79 F who presented to [facility] ED on 11/23/2024 with right facial numbness/tingling. 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 Patient lives at home with her . Yesterday, while writing checks, she hadthis weird feeling in the R side of her face, she is unsure how to describe it, it was not tingling, it was not numbness. It felt different. It happened suddenly. It stayed there for an hour, shortly after she arrived to the hospital, it disappeared, No headache, no blurry vision. She has no history of migraines. In the ER, SBP 179 CTH with no acute findings CTA head/neck showed known stenosis of the proximal basilar artery and distal left vertebral artery that were unchanged. In the ER her facial numbness improved from earlier MRI brain with no acute findings She doesn?t check her blood pressure at home, but she reports when she goes to the doctor?s office her BP is usually good she doesn?t remember the numbers but they tell her it is good. PHYSICAL EXAM Exam performed with help of the nurse/FREDY present with patient on Tele site NEURO: AAOx3, follows commands, no aphasia/dysarthria. EOMI, no gaze preference/nystagmus. Face asymmetric with R facial weakness which Is baseline for her, Intact facial sensation. Head turning intact. Sensation: intact to light touch all over Motor: All extremities antigravity Coordination: FTN intact bilaterally PFSH Medical History Coronary artery disease Hypertension Dyslipidemia Mild cognitive impairment Ischemic cardiomyopathy Arteriosclerotic cardiovascular disease Hearing loss, left Chest pain Stroke/cerebrovascular accident Compression neuropathy of genitofemoral nerve Stress incontinence Wears hearing aid Wears glasses Post-menopausal Depression Thyroid disease Arthritis High cholesterol Non-smoker Leg cramps History of stress test History of echocardiogram Uterovaginal prolapse, incomplete TIA (transient ischemic attack) History of stroke Cancer GERD (gastroesophageal reflux disease) Menieres disease Corrales's palsy Aphthous ulcer of mouth Hypothyroidism Hyperlipidemia Benign essential hypertension Home Medications ?Medication ?Instructions ?Recorded ?Last Taken ?Type ascorbic acid (vitamin C) 500 mg 500 mg PO DAILY 05/21 Unknown History tablet (Vitamin C) cholecalciferol (vitamin D3) 125 125 mcg PO DAILY 04/27 10/16 Unknown History mcg (5,000 unit) tablet (Vitamin D3) aspirin 81 mg tablet,delayed 81 mg PO DAILY@0800 #90 t abs 03/13/23 05/12/23 Rx release Handicap Placard #1 ea 04/23/23 Unknown Rx levothyroxine 137 mcg tablet 137 mcg PO DAILY 04/23/23 Unknown History lisinopril 20 mg tablet 20 mg PO DAILY #90 tabs 09/24 11/16 Unknown Rx atorvastatin 40 mg tablet 40 mg PO QDAY #90 tabs 04/25 Unknown Rx atenolol 25 mg tablet 25 mg PO DAILY #90 tabs 07/25 08/18 Unknown Rx amlodipine 10 mg tablet 10 mg PO QDAY #90 tabs 08/24 Unknown Rx lysine 1,000 mg tablet 500 mg PO DAILY 09/26/24 Unk nown History zinc lozenges 15 mg 50 mg PO DAILY 09/26/24 Unkn own History clopidogrel 75 mg tablet 75 mg PO DAILY #90 TABLETS 0 11/08/24 Unknown Rx citalopram 10 mg tablet 10 mg PO DAILY 11/23/24 Unkn own History ticagrelor 90 mg tablet (Brilinta) 90 mg PO DAILY 10/26 05/20 Unknown History Allergy/AdvReac Type Severity Reaction Status Date / Time Sulfa (Sulfonamide Allergy Intermediate Rash Verified 11/23/24 15:20 Antibiotics) pepper (genus Capsicum) Allergy Swelling Verified 11/23/24 15:20 adhesive tape AdvReac Intermediate Rash Verified 11/23/24 15:20 Penicillins AdvReac Unknown Rash Verified 11/23/24 15:20 Family History Mother Heart disease Surgical History Stented coronary artery (05/12/23) Status post hysterectomy with oophorectomy Hx of surgical procedure H/O tubal ligation H/O dilation and curettage H/O breast biopsy Hx of colonoscopy History of thyroidectomy H/O hernia repair Social History Smoking Status: Never smoker alcohol intake: never substance use type: does not use caffeine: Yes Type: coffee Number of servings: 1 seatbelt use: always do you feel safe at home: Yes additional social history: - [place] Vital Signs Vital Signs Vital Signs: 11/23/24 15:18 11/23/24 15:57 11/23/24 15:57 Temperature 98.2 F Temperature Source Oral Pulse Rate 69 55 L Pulse Strength Respiratory Rate 18 12 Respiratory Effort Respiratory Depth Respiratory Pattern Blood Pressure 179/70 H 105/66 Blood Pressure Mean 106 79 Blood Pressure Source Blood Pressure Position Blood Pressure Location Pulse Ox 99 97 Oxygen Delivery Method Room Air Room Air Room Air 11/23/24 16:03 11/23/24 16:18 11/23/24 16:30 Temperature Temperature Source Pulse Rate 55 L 60 61 Pulse Strength Respiratory Rate 16 14 16 Respiratory Effort Respiratory Depth Respiratory Pattern Blood Pressure 105/66 139/64 H 154/80 H Blood Pressure Mean 79 89 104 Blood Pressure Source Blood Pressure Position Blood Pressure Location Pulse Ox 97 98 97 Oxygen Delivery Method Room Air Room Air Room Air 11/23/24 17:00 11/23/24 17:06 11/23/24 17:49 Temperature 97.8 F Temperature Source Pulse Rate 62 62 63 Pulse Strength Respiratory Rate 15 15 17 Respiratory Effort Respiratory Depth Respiratory Pattern Blood Pressure 131/62 H 131/62 H 131/62 H Blood Pressure Mean 85 85 85 Blood Pressure Source Blood Pressure Position Blood Pressure Location Pulse Ox 96 96 97 Oxygen Delivery Method Room Air Room Air 11/23/24 18:15 11/23/24 18:36 11/23/24 19:11 Temperature 97.8 F Temperature Source Oral Pulse Rate 59 L 63 Pulse Strength Respiratory Rate 14 Respiratory Effort Normal Non-Labored Respiratory Depth Normal Respiratory Pattern Normal Blood Pressure 134/57 H Blood Pressure Mean 82 Blood Pressure Source Monitor Blood Pressure Position Semi-Fowlers Blood Pressure Location Right Forearm Pulse Ox 99 Oxygen Delivery Method Room Air Room Air 11/23/24 19:35 11/23/24 20:00 11/23/24 20:06 Temperature 98.5 F Temperature Source Oral Pulse Rate 61 Pulse Strength Respiratory Rate 16 Respiratory Effort Normal Non-Labored Respiratory Depth Normal Respiratory Pattern Normal Blood Pressure 129/54 H Blood Pressure Mean 79 Blood Pressure Source Monitor Blood Pressure Position Semi-Fowlers Blood Pressure Location Right Arm Pulse Ox 97 94 Oxygen Delivery Method Room Air Room Air Room Air 11/23/24 23:55 11/24/24 03:00 11/24/24 03:53 Temperature 98.7 F 98.6 F Temperature Source Oral Oral Pulse Rate 57 L 56 L 55 L Pulse Strength Respiratory Rate 15 16 Respiratory Effort Respiratory Depth Respiratory Pattern Blood Pressure 134/50 H 150/52 H Blood Pressure Mean 78 84 Blood Pressure Source Monitor Monitor Blood Pressure Position Semi-Fowlers Semi-Fowlers Blood Pressure Location Right Arm Right Arm Pulse Ox 95 97 Oxygen Delivery Method Room Air Room Air 11/24/24 04:06 11/24/24 06:41 11/24/24 07:31 Temperature 98.1 F Temperature Source Oral Pulse Rate 56 L Pulse Strength Respiratory Rate 14 Respiratory Effort Normal Non-Labored Respiratory Depth Normal Respiratory Pattern Normal Blood Pressure 134/38 H Blood Pressure Mean 70 Blood Pressure Source Monitor Blood Pressure Position Semi-Fowlers Blood Pressure Location Right Arm Pulse Ox 95 98 Oxygen Delivery Method Room Air Room Air Room Air 11/24/24 08:30 11/24/24 10:00 11/24/24 10:01 Temperature 98.8 F Temperature Source Oral Pulse Rate 63 Pulse Strength Normal (2+) Respiratory Rate 16 Respiratory Effort Normal Non-Labored Respiratory Depth Normal Respiratory Pattern Normal Blood Pressure 136/49 H Blood Pressure Mean 78 Blood Pressure Source Monitor Blood Pressure Position Semi-Fowlers Blood Pressure Location Right Arm Pulse Ox 98 Oxygen Delivery Method Room Air Room Air Weight Weight: 83.3 kg Body Mass Index (BMI) 33.5 EEG Results Procedure Details EEG Procedure Details: LILLIANA HUBER is a 79 year old F with a past medical history of , who presents for evaluation of Electroencephalogram on DATE at TIME Lab / Micro Data 11/24/24 05:59 11/24/24 05:59 Labs: Laboratory Results - last 24 hr 11/23/24 15:50: WBC 5.0, RBC 3.80 L, Hgb 11.8 L, Hct 34.6 L, MCV 91.1, MCH 31.1,MCHC 34.1, RDW Std Deviation 42.8, RDW Coeff of Jennifer 13.0, Plt Count 179, MPV 9.1, Immature Gran % (Auto) 0.800, Neut % (Auto) 57.1, Lymph % (Auto) 26.5, [place]% (Auto) 11.0 H, Eos % (Auto) 3.6, Baso % (Auto) 1.0, Absolute Neuts (auto) 2.9,Absolute Lymphs (auto) 1.33, Nucleated RBC % 0, PT 14.0, INR 1.1, APTT 29.0, Sodium 136, Potassium 4.2, Chloride 106, Carbon Dioxide 21.7, Anion Gap 8, BUN 17, Creatinine 0.75, Estim Creat Clear Calc 57.03, Est GFR (MDRD) Non-Af 80, BUN/Creatinine Ratio 22.2 H, Glucose 95, Hemoglobin A1c 5.6, Calcium 8.3, Troponin T High Sens 10, Troponin T Hi Sens 2 Hr Cancelled, TSH 8.080 H, Free T41.50 H 11/23/24 15:56: POC Glucose 98 11/23/24 19:07: Troponin T Hi Sens 2 Hr 8 11/23/24 20:59: Troponin T Hi Sens 4Hr 7 11/24/24 05:59: WBC 4.6, RBC 4.09 L, Hgb 12.6, Hct 37.4, MCV 91.4, MCH 30.8, MCHC 33.7, RDW Std Deviation 44.3 H, RDW Coeff of Jennifer 13.2, Plt Count 195, MPV 9.3, Sodium 138, Potassium 4.1, Chloride 104, Carbon Dioxide 20.0 L, Anion Gap 14, BUN 19, Creatinine 0.78, Estim Creat Clear Calc 55.18, Est GFR (MDRD) Non-Af76, BUN/Creatinine Ratio 24.1 H, Glucose 94, Calcium 9.1, Triglycerides 227 H, Cholesterol 168, LDL Cholesterol, Calc 75, VLDL Cholesterol 45 H, HDL Cholesterol 48, Cholesterol/HDL Ratio 3.50 Imaging Radiology Impression Head/Neck CTA 11/23/24 15:34 IMPRESSION: 1. No acute intracranial or cervical large vessel arterial occlusion or high- grade stenosis, no significant change from prior exam. 2. Dominant right vertebral artery with diffusely hypoplastic left vertebral artery, with moderate-advanced stenosis of the distal left V4 segment. Widely patent right vertebral artery. 3. Mild-moderate focal narrowing of the proximal basilar artery. No significantICA stenosis. 4. Mild short-segment narrowings along the left PHYLICIA A2-A3 segments. \ Reading Location: [id number] Brain CT 11/23/24 15:36 IMPRESSION: No acute abnormality is seen. Red Alert: Chronic changes The critical information above was relayed directly by me by telephone to Arnulfo Perrin on 11/23/2024 at 3:48 pm with readback verification. Reading Location: [facility] Echocardiogram 11/24/24 08:20 Interpretation Summary Normal left ventricular size, wall thickness, there is mild concentric LVH, no regional wall motion normality, normal LVEF with estimated ejection fraction of 55 to 60%. Grade 1 diastolic dysfunction. Normal right ventricular size and function. Mild diffuse aortic valve thickening. Moderate (2+) centrally directed aortic valve insufficiency, with pressure half- time of 344 ms. Ordering Physician: Lynne Tabares Referring Physician: Elis Cardenas Performed By: Rosanne Hays, RDCS, RVT Brain MRI 11/24/24 17:20 IMPRESSION: 1. No acute intracranial process is seen. 2. Moderate bilateral cerebral and pontine white matter changes, consistent withchronic ischemic changes of small-vessel disease. 3. Mild generalized cerebral atrophy. Reading Location: [place] [address] Active Medications Active Medications Active Medications: Current Medications Generic Name Dose Route Start Last Admin Trade Name Freq PRN Reason Stop Dose Admin Acetaminophen 650 mg 11/23/24 18:12 11/23/24 21:14 Acetaminophen 325 Mg Tablet PO 650 mg Q6H PRN PRN Administration Pain 1-10 Or Fever>100.7 Ascorbic Acid 500 mg 11/24/24 10:00 11/24/24 09:09 Ascorbic Acid 500 Mg Tablet PO 500 mg DAILY LIMA Administration Aspirin 81 mg 11/24/24 08:00 11/24/24 09:09 Aspirin E.C. 81 Mg Tablet PO 81 mg BREAKFAST LIMA Administration Atorvastatin Calcium 40 mg 11/24/24 10:00 11/24/24 09:09 Atorvastatin Calcium 40 Mg Tablet PO 40 mg DAILY LIMA Administration Citalopram Hydrobromide 10 mg 11/24/24 10:00 11/24/24 09:09 Citalopram 10 Mg Tablet PO 10 mg DAILY LIMA Administration Clopidogrel Bisulfate 75 mg 11/24/24 10:00 11/24/24 09:09 Clopidogrel Bisulfate 75 Mg Tablet PO 75 mg DAILY LIMA Administration Hydralazine HCl 5 mg 11/23/24 18:12 Hydralazine 20 Mg/Ml Vial IV 11/24/24 18:12 Q30M PRN maintain BP parameters with HR <60 Sodium Chloride 250 mls @ 15 mls/hr 11/23/24 18:35 IV .[id number] PRN Saline Flush Sodium Chloride 250 mls @ 15 mls/hr 11/23/24 18:35 IV .[id number] PRN Additional IVPB Infusion Labetalol HCl 20 mg 11/23/24 15:33 Labetalol 20 Mg/4 Ml Vial IV 11/24/24 15:33 X1 PRN BLOOD PRESSURE Labetalol HCl 10 - 20 mg 11/23/24 18:12 Labetalol 20 Mg/4 Ml Vial IV 11/24/24 18:12 Q10M PRN PRN maintain BP parameters with HR >/=60 Levothyroxine Sodium 137 mcg 11/24/24 06:00 11/24/24 05:20 Levothyroxine 137 Mcg Tablet PO 137 mcg DAILY@0600 LIMA Administration Melatonin 3 mg 11/23/24 18:12 11/23/24 21:14 Melatonin 3 Mg Tablet PO 3 mg QHS PRN PRN Administration INSOMNIA Ondansetron HCl 4 mg 11/23/24 18:12 Ondansetron 4 Mg/2 Ml Vial IV Q8H PRN PRN NAUSEA/VOMITING Sodium Chloride 10 - 40 ml 11/23/24 18:35 0.9% Saline Lock 10 Ml Syringe IV UD PRN SALINE FLUSH NIHSS NIHSS Nursing Documentation NIHSS Nursing Documentation: NIHSS: Ischemic Stroke/TIA Start: 11/23/24 18:12 Text: For ICU Patients: NIH sroke scale at Status: Complete presentation and every 2 hours or with change in RN caregiver Freq: [id number] Protocol: Activity Type Activity Date Activity User E-sign Co-sign Detail Recorded Client Recorded Date Recorded By Document 11/23/24 18:12 RY [id number] 11/23/24 18:17 RY 11/23/24 18:12 NIH Stroke Scale [NIHSS] A score of 0 is normal or asymptomatic . Total possible score is 42. Inpatient: RN or Physician to activate a stroke alert for onset of new stroke symptoms or with NIHSS increase >/= 3 points. Following change in neurological status, NIHSS will be performed per physician order or more frequently PRN. -1a. Level of Consciousness 0 - Alert; keenly responsive -1b. LOC Questions 0 - Answers BOTH questions correctly -1c. LOC Commands 0 - Performs BOTH tasks correctly -2. Best Gaze 0 - Normal -3. Visual 0 - No visual loss -4. Facial Palsy 1 - Minor paralysis ( flattened nasolabial fold , asymmetry on smiling) -5a. Left Arm 0 - No drift; arm holds 90 ( or 45) degrees for full 10 seconds -5b. Right Arm 0 - No drift; arm holds 90 ( or 45) degrees for full 10 seconds -6a. Left Leg 0 - No drift; leg holds 30- degree position for full 5 seconds -6b. Right Leg 0 - No drift; leg holds 30- degree position for full 5 seconds -7. Limb Ataxia 0 - Absent -8. Sensory 0 - Normal; no sensory loss -9. Best Language 0 - No aphasia; normal -10. Dysarthria 0 - Normal -11. Extinction and Inattention 0 - No abnormality -Total 1 Query Text:A score of 0 is normal or asymptomatic. Total possible score is 42 . ED: Notify Physician for NIHSS increase by > / = 3 points. Inpatient: RN or Physician to activate a stroke alert for NIHSS increase of > / = 3 points. Coma Scale [Assess] -Eye Opening Spontaneous -Motor Obeys Commands -Verbal Oriented [Total] -Coma Scale Total 15 NIHSS: Ischemic Stroke/TIA Start: 11/23/24 18:12 Text: For PCU Patients: NIH and Neuro Check every 4 Status: Active hours, PRN and with change in RN caregiver. Freq: [id number] Protocol: Activity Type Activity Date Activity User E-sign Co-sign Detail Recorded Client Recorded Date Recorded By Document 11/24/24 10:00 RY [id number] 11/24/24 11:29 RY 11/24/24 10:00 NIH Stroke Scale [NIHSS] A score of 0 is normal or asymptomatic . Total possible score is 42. Inpatient: RN or Physician to activate a stroke alert for onset of new stroke symptoms or with NIHSS increase >/= 3 points. Following change in neurological status, NIHSS will be performed per physician order or more frequently PRN. -1a. Level of Consciousness 0 - Alert; keenly responsive -1b. LOC Questions 0 - Answers BOTH questions correctly -1c. LOC Commands 0 - Performs BOTH tasks correctly -2. Best Gaze 0 - Normal -3. Visual 0 - No visual loss -4. Facial Palsy 1 - Minor paralysis ( flattened nasolabial fold , asymmetry on smiling) -5a. Left Arm 0 - No drift; arm holds 90 ( or 45) degrees for full 10 seconds -5b. Right Arm 0 - No drift; arm holds 90 ( or 45) degrees for full 10 seconds -6a. Left Leg 0 - No drift; leg holds 30- degree position for full 5 seconds -6b. Right Leg 0 - No drift; leg holds 30- degree position for full 5 seconds -7. Limb Ataxia 0 - Absent -8. Sensory 0 - Normal; no sensory loss -9. Best Language 0 - No aphasia; normal -10. Dysarthria 0 - Normal -11. Extinction and Inattention 0 - No abnormality -Total 1 Query Text:A score of 0 is normal or asymptomatic. Total possible score is 42 . ED: Notify Physician for NIHSS increase by > / = 3 points. Inpatient: RN or Physician to activate a stroke alert for NIHSS increase of > / = 3 points. Coma Scale [Assess] -Eye Opening Spontaneous -Motor Obeys Commands -Verbal Oriented [Total] -Coma Scale Total 15 11/24/24 1249 <Electronically signed by Rachel Holman MD> Cosigner Signature (if applicable): CC: Dr. Elis Cardenas, DO~ Signed [facility] Work Phone: evaluation note* Diagnosis Onset Date Resolution Status Encounter for routine gynecological examination noneactive [facility] Work Phone: evaluation note* Diagnosis Onset Date Resolution Status Encounter for routine gynecological examination noneactive Excoriation acute Uterovaginal prolapse, incomplete acute Nocturia acute Overflow stress urinary incontinence in female acute Uterovaginal prolapse, incomplete acute [facility] Work Phone: Evaluation note* Diagnosis Onset Date Resolution Status Excoriation acute Uterovaginal prolapse, incomplete acute Nocturia acute Overflow stress urinary incontinence in female acute Uterovaginal prolapse, incomplete acute Overflow stress urinary incontinence in female acute Uterovaginal prolapse, incomplete acute Overflow stress urinary incontinence in female acute Status post hysterectomy with oophorectomy acute Stress incontinence acute Uterovaginal prolapse, incomplete acute [facility] Work Phone: Evaluation note* Diagnosis Onset Date Resolution Status Compression neuropathy of genitofemoral nerve acute Status post hysterectomy acu te Stress incontinence acute Uterovaginal prolapse, incomplete acute [facility] Work Phone: Evaluation noteNo assessment information available [facility] Work Phone: evaluation note* Diagnosis Onset Date Resolution Status Cerebrovascular accident non eactive Acute non-ST elevation myoca rdial infarction (NSTEMI) acute [facility] Work Phone: Evaluation note* Diagnosis Onset Date Resolution Status Cerebrovascular accident non eactive Acute non-ST elevation myoca rdial infarction (NSTEMI) acute Hyperlipidemia chronic Hypertension chronic [facility] Work Phone: Evaluation note* Diagnosis Onset Date Resolution Status Cerebrovascular accident non eactive Hyperlipidemia chronic Hypertension chronic Acute non-ST elevation myoca rdial infarction (NSTEMI) resolved [facility] Work Phone: Evaluation note* Diagnosis Onset Date Resolution Status Cerebrovascular accident non eactive Hyperlipidemia chronic Hypertension chronic Acute non-ST elevation myoca rdial infarction (NSTEMI) resolved Ischemic cardiomyopathy acut e Hyperlipidemia chronic Hypertension chronic Stented coronary artery May 12, 2023 chronic [facility] Work Phone: History and physical note Author Lynne Tabares [facility] March 12, 2023 4:55am Note Date/Time March 12, 2023 4:35am [facility] Medical Records Department [address] [place] [id number] H&P Exam - Hospitalist 03/12/23 0432 MR#: [id number] Acct: [id number] Name: LILLIANA HUBER Rep #:[id number] : 1945 77 From: Lynne Tabares DO PCP: Dr. Elis Cardenas, Status:ADM IN [facility] H[facility] - General General Date of Admission: 03/12/23 Date of Service: 03/12/23 Chief Complaint: Chest pain HPI Narrative LILLIANA HUBER, is a 77 F who presented to the emergency department at [facility] on 03/12/2023 just after midnight complaining of chest pain that started about an hour prior to presentation that goes across her chest fromright to left. She denied any radiation of symptoms elsewhere or shortness of breath that was associated. She also denied any associated diaphoresis, nausea or vomiting. She has a family history of coronary disease in her mother and wasnever a smoker. She has a history of hypertension, hyperlipidemia as well as TIAs and takes a daily baby aspirin. She states her symptoms are currently resolved. Vital signs at presentation showed temperature of 97.9, heart rate 67, blood pressure 146/74, respiratory rate was 18 oxygen saturations were 96% room air. Her CBC was unremarkable. Coags are pending. D-dimer was 0.37. Chemistry panel was overall unremarkable. Troponin was initially 88 with a repeat of 400. Her initial EKG was unremarkable however repeat EKG was done at about 2 hours which showed new T wave inversions in leads V2 through V6. Chest x-ray showed prominence in the right hilum which was suggested to represent an enlarged rightpulmonary artery versus lymphadenopathy and borderline cardiac enlargement [facility] Medical History Aphthous ulcer of mouth Arthritis Corrales's palsy Benign essential hypertension Cancer Depression GERD (gastroesophageal reflux disease) High cholesterol History of echocardiogram History of stress test History of stroke Hyperlipidemia Hypertension Hypothyroidism Leg cramps Menieres disease Non-smoker Post-menopausal Stress incontinence Thyroid disease TIA (transient ischemic attack) Wears glasses Wears hearing aid Home Medications amlodipine 5 mg tablet 5 mg PO DAILY 09/22/15 [History Last Taken 05/28/22] lisinopril 20 mg tablet 20 mg PO DAILY #30 tabs 10/11/15 [Rx Last Taken 05/28/22] atenolol 25 mg tablet 25 mg PO DAILY 12/25/21 [History Last Taken 05/28/22] levothyroxine 175 mcg tablet 137 mcg PO DAILY 12/25/21 [History Last Taken 05/28/22] B-complex with vitamin C 1 tab PO DAILY 05/21/22 [History Last Taken Unknown] ascorbic acid (vitamin C) 500 mg tablet (Vitamin C) 500 mg PO DAILY 05/21/22 [History Last Taken Unknown] aspirin 81 mg capsule 81 mg PO DAILY 05/21/22 [History Last Taken 05/19/22] calcium carb,cit ER 600 mg-vit D3 12.5 mcg (500 unit) tablet,ext.rel (Citracal- D3 Slow Release) 2 tab PO DAILY 05/21/22 [History Last Taken Unknown] cholecalciferol (vitamin D3) 125 mcg (5,000 unit) tablet (Vitamin D3) 125 mcg PODAILY 05/21/22 [History Last Taken Unknown] garlic 1,000 mg capsule 1,000 mg PO DAILY 05/21/22 [History Last Taken Unknown] lysine 1,000 mg tablet 1,000 mg PO DAILY 05/21/22 [History Last Taken Unknown] turmeric root extract 500 mg capsule 500 mg PO DAILY 05/21/22 [History Last Taken Unknown] zinc lozenges 15 mg 15 mg PO DAILY 05/21/22 [History Last Taken Unknown] prednisone 20 mg tablet 40 mg (2 x 20 mg) PO DAILY #8 tabs 10/21/22 [Rx Last Taken Unknown] atorvastatin 40 mg tablet 40 mg PO DAILY #90 tabs 02/15/23 [Rx Last Taken Unknown] citalopram 10 mg tablet 10 mg PO DAILY #30 tabs 02/16/23 [Rx Last Taken Unknown] Allergy/AdvReac Type Severity Reaction Status Date / Time Sulfa (Sulfonamide Allergy Intermediate Rash Verified 03/12/23 00:21 Antibiotics) pepper (genus Capsicum) Allergy Swelling Verified 03/12/23 00:21 adhesive tape AdvReac Intermediate Rash Verified 03/12/23 00:21 Penicillins AdvReac Unknown Rash Verified 03/12/23 00:21 Family History Mother Heart disease Surgical History H/O breast biopsy H/O dilation and curettage H/O hernia repair H/O tubal ligation History of thyroidectomy Hx of colonoscopy Hx of surgical procedure Status post hysterectomy with oophorectomy Social History Smoking Status: Never smoker alcohol intake: never substance use type: does not use caffeine: Yes seatbelt use: always do you feel safe at home: Yes additional social history: - [place] ROS Constitutional Constitutional: Denies anorexia, change in weight, chills, fatigue, fever(s), malaise, night sweats, weakness or other Eyes Eyes: Denies blurry vision, change in eye color, change in vision, discharge from eye(s), double vision, erythema, eye pain, loss of vision or other ENT HEENT: Denies abnormal hearing, dysphagia, ear pain, epistaxis, headache(s), hearing loss, nasal congestion, nasal discharge, post nasal drip, sinus pressure, sore throat or other Cardiovascular Cardiovascular: Reports chest pain; Denies claudication, dyspnea on exertion, edema, lightheadedness, orthopnea, palpitations, paroxysmal nocturnal dyspnea, rapid heart rate, syncope or other Respiratory/Chest Respiratory/Chest: Denies cough, dyspnea, excessive phlegm production, hemoptysis, productive cough, shortness of breath at rest, shortness of breath with exertion, wheezing or other Gastrointestinal Gastrointestinal: Denies abdominal pain, coffee ground emesis, constipation, diarrhea, dyspepsia, hematemesis, hematochezia, loose stools, melena, nausea, vomiting or other Genitourinary Genitourinary: Denies burning urination, difficulty urinating, dysuria, hematuria, nocturia, urinary frequency, urinary hesitancy, urinary incontinence,urinary urgency or other Musculoskeletal Musculoskeletal: Denies arthralgias, back pain, joint pain, joint stiffness, joint swelling, myalgias, neck pain or other Neurologic Neurologic: Denies abnormal gait, abnormal speech, confusion, disequilibrium, dizziness, focal weakness, headache(s), numbness, paresthesias, seizure-like activity, seizures, syncope, tingling, tremor(s) or other Psychiatric Psychiatric: Denies anxiety, depression, homicidal ideation, suicidal ideation or other Endocrine Endocrinology: Denies change in body appearance, cold intolerance, excessive sweating, heat intolerance, polydipsia, polyuria or other Hematologic/Lymphatic Hematologic/Lymphatic: Denies anemia, easy bleeding, easy bruising, lymphadenopathy or other Allergic/Immunologic Allergic/Immunologic: Denies rhinitis, hives, eczemia, asthma or other Vital Signs Vital Signs Vital Signs: 03/12/23 00:19 03/12/23 00:48 03/12/23 00:49 Temperature 97.9 F Temperature Source Temporal Pulse Rate 71 Respiratory Rate 18 Respiratory Effort Normal Non-Labored Blood Pressure 167/72 H Blood Pressure Mean 103 Pulse Ox 99 Oxygen Delivery Method Room Air Room Air 03/12/23 00:50 03/12/23 03:56 Temperature 97.9 F Temperature Source Pulse Rate 67 Respiratory Rate 18 Respiratory Effort Blood Pressure 146/74 H 151/69 H Blood Pressure Mean 98 96 Pulse Ox 96 Oxygen Delivery Method Weight Weight: 83.007 kg Body Mass Index (BMI) 33.5 Physical Exam Const alert, oriented x3, no apparent distress and well nourished; Negative for average body habitus Constitutional Narrative: Obese, older, white female, sitting up in bed, appears comfortable and nontoxic,nursing at bedside General Appearance: cooperative HEENT normocephalic, head/scalp atraumatic, hearing grossly normal bilaterally and moist oral mucous membranes HEENT Narrative: Dentition is poor, Mallampati is 2-3, no thrush Resp normal respiratory effort, no retractions, no use of accessory muscles and clearto auscultation bilaterally Auscultation: Negative for rales, rhonchi or wheezes Cardio regular rate, regular rhythm, S1 normal heart sound, S2 normal heart sound, no murmurs, no rub, no gallops and no clicks GI normal to inspection, nondistended, normoactive bowel sounds, soft to palpation and non-tender Extremity no clubbing, cyanosis or edema Extremity Narrative: Pedal pulses are 2+, radial pulses are 2+ Neuro oriented x3, moves all extremities and no focal motor deficits Speech: speech normal Psych affect normal Psych Narrative: Very pleasant, interacts appropriately Results Lab / Micro Data 03/12/23 00:38 03/12/23 00:38 Labs: Laboratory Results - last 24 hr 03/12/23 00:38: WBC 7.1, RBC 4.42, Hgb 13.2, Hct 39.9, MCV 90.3, MCH 29.9, MCHC 33.1, RDW Std Deviation 44.1 H, RDW Coeff of Jennifer 13.4, Plt Count 239, MPV 9.1, Immature Gran % (Auto) 0.800, Neut % (Auto) 60.3, Lymph % (Auto) 27.0, [place] % (Auto) 8.2, Eos % (Auto) 2.3, Baso % (Auto) 1.4 H, Absolute Neuts (auto) 4.3, Absolute Lymphs (auto) 1.92, Nucleated RBC % 0, D-Dimer Quant (PE/DVT) 0.37, Sodium 140, Potassium 4.0, Chloride 109 H, Carbon Dioxide 23.0, Anion Gap 8, BUN24 H, Creatinine 0.91, Estim Creat Clear Calc 39.65, Est GFR (MDRD) Af Amer 77, Est GFR (MDRD) Non-Af 64, BUN/Creatinine Ratio 26.5 H, Glucose 124 H, Calcium 8.9, Troponin I High Sens 88 H 03/12/23 02:50: Troponin I High Sens 400 H* Imagaing Radiology Impression Chest X-Ray 03/12/23 00:23 IMPRESSION: Mild prominence of the right hilum which may represent an enlarged right pulmonary artery possible pulmonary hypertension versus lymphadenopathy. Borderline cardiac enlargement. Electronically Signed: Radha Little MD at 1:14 EST , Assessment & Plan Assessment/Plan (1) Acute non-ST elevation myocardial infarction (NSTEMI): PLAN: Plan NSTEMI -Initial troponin 88 with a delta of 400 -Initial EKG was unremarkable however repeat shows new T wave inversions in leadV2 through V6 -Continue home baby aspirin -Continue home atenolol -Increase atorvastatin from 40 mg to 80 mg for pleiotropic effects -Continue home lisinopril -Check hemoglobin A1c -Check lipid panel -Heparin drip -Check echocardiogram -Consult cardiology HTN/HPL -Continue home amlodipine -Continue home atenolol -Continue atorvastatin but increase dose is no -Continue home lisinopril Hypothyroidism/history of thyroid cancer -Status post thyroidectomy in 1993 -Continue home levothyroxine History of TIAs -Continue home aspirin -Continue outpatient follow-up with neurology History of uterine prolapse -status post hysterectomy Obesity -BMI 33.5 -Recommend weight loss -Complicates treatment, prognosis, outcomes DVT prophylaxis -Patient will be full anticoagulation with heparin drip due to the above NSTEMI CODE STATUS -Full code as verified on admission Charges/Coding Visit Charges Inpatient E&M: 72553 Init Hosp L2 03/12/23 0455 <Electronically signed by Lynne Tabares DO> Cosigner Signature (if applicable): CC: Dr. Lynne Tabares DO; Dr. Elis Cardenas DO~ Signed [facility] Work Phone: Reason for referral (narrative)No reason for referral information availableWS[facility] Work Phone: Chief Complaint and Reason for Visit Chief Complaint Admit Date 6 M FU August 24, 2024 1:35pm Pre Colon September 27, 2024 8:44a m 3 WK fu October 18, 2024 12:5 8pm Reason for Visit Admit Date Aortic valve regurgitation August 24, 2024 1:35pm Carotid artery disease August 24, 2024 1:3 5pm Coronary artery disease August 24, 2024 1: 35pm Dyslipidemia August 24, 2024 1:35pm Hypertension August 24, 2024 1:35pm Stented coronary artery August 24, 2024 1: 35pm Ischemic cardiomyopathy August 24, 2024 1: 35pm Constipation September 27, 2024 8:44a m Change in bowel habits October 18, 2024 1 2:58pm Chief Complaint PREVENTATIVE Annual (HEBREW PROFESSOR) SCREENING POST SOBEIDA Reason for Visit Encounter for routin e gynecological examination Chief Complaint PREVENTATIVE Annual (HEBREW PROFESSOR) SCREENING POST SOBEIDA PMB, woke up bleeding this morning prolapse per MH PROLAPSE Reason for Visit Encounter for routin e gynecological examination Excoriation Uterovaginal prolapse, incomplete Nocturia Overflow stress urinary incontinence in female Uterovaginal prolapse, incomplete Chief Complaint PMB, woke up bleedin g this morning prolapse per MH PROLAPSE TVH PREOP TOTAL VAGINAL HYSTERECTOMY TOTAL VAGINAL HYSTERECTOMY TOTAL VAGINAL HYSTERECTOMY Reason for Visit Excoriation Uterovaginal prolapse, incomplete Nocturia Overflow stress urinary incontinence in female Uterovaginal prolapse, incomplete Overflow stress urinary incontinence in female Uterovaginal prolapse, incomplete Overflow stress urinary incontinence in female Status post hysterectomy with oophorectomy Stress incontinence Uterovaginal prolapse, incomplete Chief Complaint 6 WK POST OP SCREENING DIZZINESS Reason for Visit Compression neuropat hy of genitofemoral nerve Status post hysterectomy Stress incontinence Uterovaginal prolapse, incomplete Chief Complaint SCREENING DIZZINESS Chief Complaint SCREENING DIZZINESS SCREENING Chief Complaint SCREENING Cerebrovascular accident NSTEMI NSTEMI Reason for Visit Cerebrovascular acci dent Acute non-ST elevation myocardial infarction (NSTEMI) Chief Complaint SCREENING Cerebrovascular accident NSTEMI NSTEMI NSTEMI NSTEMI Reason for Visit Cerebrovascular acci dent Acute non-ST elevation myocardial infarction (NSTEMI) Hyperlipidemia Hypertension Chief Complaint SCREENING Cerebrovascular accident NSTEMI NSTEMI NSTEMI AM EKG NSTEMI PCI with stent Reason for Visit Cerebrovascular acci dent Hyperlipidemia Hypertension Acute non-ST elevation myocardial infarction (NSTEMI) Chief Complaint SCREENING Cerebrovascular accident NSTEMI NSTEMI NSTEMI AM EKG NSTEMI PCI with stent S/P [facility] 03/13 NSTEMI & PCI INT LABS Coronary artery disease CAD Reason for Visit Cerebrovascular acci dent Hyperlipidemia Hypertension Acute non-ST elevation myocardial infarction (NSTEMI) Ischemic cardiomyopathy Hyperlipidemia Hypertension Stented coronary artery Chief Complaint NSTEMI NSTEMI NSTEMI AM EKG NSTEMI PCI with stent S/P [facility] 03/13 NSTEMI & PCI INT LABS Coronary artery disease s p PCI AM EKG PCI with stent PCI with stent Reason for Visit Hyperlipidemia Acute non-ST elevation myocardial infarction (NSTEMI) Ischemic cardiomyopathy Hyperlipidemia Stented coronary artery Chief Complaint PCI with stent S/P [facility] 03/13 NSTEMI & PCI INT LABS Coronary artery disease s p PCI AM EKG PCI with stent PCI with stent 3 M FU CHF PCI with stent Reason for Visit Hyperlipidemia Ischemic cardiomyopathy Stented coronary artery Coronary artery disease Dyslipidemia Hypertension Ischemic cardiomyopathy Stented coronary artery Chief Complaint Coronary artery dise ase s p PCI AM EKG PCI with stent PCI with stent 3 M FU CHF PCI with stent PCI with stent 6 month f/u Reason for Visit Coronary artery dise ase Dyslipidemia Hypertension Ischemic cardiomyopathy Stented coronary artery Mild cognitive impairment Cerebrovascular accident Chief Complaint Admit Date NONRHEUMATIC AORTIC INSUFFICIENCY,ATHERO SCLEROTIC April 04, 2024 12:40pm NEW CONCERNS April 25, 2024 10:14am I65.1 Occlusion and stenosis of basilar artery May 02, 2024 1:37pm occlusion of basilar artery April 1:21pm 1 Y FU July 13, 2024 1:5 5pm SCREENING July 17, 2024 7:5 1am EORDERS July 17, 2024 9:1 1am Reason for Visit Admit Date Basilar artery stenosis April 25, 10:14am Mild cognitive impairment April 25, 2024 10:14am Cerebrovascular accident April 25, 2024 10:14am Basilar artery stenosis May 16 1:21pm Basilar artery stenosis July 13, 2024 1:55pm Mild cognitive impairment July 13 1:55pm Cerebrovascular accident July 13 1:55pm Chief Complaint Admit Date 1 Y FU July 13, 2024 1:5 5pm SCREENING July 17, 2024 7:5 1am EORDERS July 17, 2024 9:1 1am 6 M FU August 24, 2024 1:35pm Pre Colon September 27, 2024 8:44a m Reason for Visit Admit Date Basilar artery stenosis July 13, 2024 1:55pm Mild cognitive impairment July 13 1:55pm Cerebrovascular accident July 13 1:55pm Aortic valve regurgitation August 24, 2024 1:35pm Carotid artery disease August 24, 2024 1:3 5pm Coronary artery disease August 24, 2024 1: 35pm Dyslipidemia August 24, 2024 1:35pm Hypertension August 24, 2024 1:35pm Stented coronary artery August 24, 2024 1: 35pm Ischemic cardiomyopathy August 24, 2024 1: 35pm Constipation September 27, 2024 8:44a m Chief Complaint Admit Date 1 Y FU July 13, 2024 1:5 5pm SCREENING July 17, 2024 7:5 1am EORDERS July 17, 2024 9:1 1am 6 M FU August 24, 2024 1:35pm Pre Colon September 27, 2024 8:44a m 3 WK October 18, 2024 12:5 8pm Reason for Visit Admit Date Basilar artery stenosis July 13, 2024 1:55pm Mild cognitive impairment July 13 1:55pm Cerebrovascular accident July 13 1:55pm Aortic valve regurgitation August 24, 2024 1:35pm Carotid artery disease August 24, 2024 1:3 5pm Coronary artery disease August 24, 2024 1: 35pm Dyslipidemia August 24, 2024 1:35pm Hypertension August 24, 2024 1:35pm Stented coronary artery August 24, 2024 1: 35pm Ischemic cardiomyopathy August 24, 2024 1: 35pm Constipation September 27, 2024 8:44a m Change in bowel habits October 18, 2024 1 2:58pm Chief Complaint Admit Date SCREENING July 17, 2024 7:5 1am EORDERS July 17, 2024 9:1 1am 6 M FU August 24, 2024 1:35pm Pre Colon September 27, 2024 8:44a m 3 WK October 18, 2024 12:5 8pm Chief Complaint Admit Date 6 M FU August 24, 2024 1:35pm Pre Colon September 27, 2024 8:44a m 3 WK fu October 18, 2024 12:5 8pm [employer]ELI[employer]MPTOMS November 23, 2024 5:16 pm Reason for Visit Admit Date Aortic valve regurgitation August 24, 2024 1:35pm Carotid artery disease August 24, 2024 1:3 5pm Coronary artery disease August 24, 2024 1: 35pm Dyslipidemia August 24, 2024 1:35pm Hypertension August 24, 2024 1:35pm Stented coronary artery August 24, 2024 1: 35pm Ischemic cardiomyopathy August 24, 2024 1: 35pm Constipation September 27, 2024 8:44a m Change in bowel habits October 18, 2024 1 2:58pm Facial paresthesia November 23, 2024 5:16 pm History of stroke November 23, 2024 5:16 pm Weakness on right side of face October 5:16pm Advance Directives No Advanced Directives Records Found Advance Directive Response Recorded Date/ Time Advance Directives Yes December 01, 018 9:26am Living Will Yes December 01, 2017 9:26am Power of Peace Officer Yes December 01 9:26am Advance Directive Response Recorded Date/ Time Advance Directives Yes December 01, 018 8:26am Living Will Yes December 01, 2017 8:26am Power of Peace Officer Yes December 01 8:26am Advance Directive Response Recorded Date/ Time Name of Medical Power of Peace Officer ALBINO HUBER May 28, 2022 11:59am Advance Directives Yes December 01, 8:26am Living Will Yes May 28 11:59am Power of Peace Officer Yes May 28, 2022 11:59am Advance Directive Response Recorded Date/ Time Advance Directives Yes December 01, 018 9:26am Living Will No October 21, 2022 5:00pm Power of Peace Officer No October 21 5:00pm Advance Directive Response Recorded Date/ Time Advance Directives Yes December 01, 018 8:26am Living Will No March 12, 023 12:28am Power of Peace Officer No March 12, 2023 12:28am Advance Directive Response Recorded Date/ Time Name of Medical Power of Peace Officer Boy ([place]) [facility] March 12, 2023 5:35am Advance Directives Yes December 01, 018 8:26am Living Will Yes March 12, 023 5:35am Power of Peace Officer Yes March 12, 2023 5:35am Advance Directive Response Recorded Date/ Time Name of Medical Power of Peace Officer [facility] ([place] March 12, 2023 5:35am Advance Directives on File No Decem 2022 10:42am Advance Directives Yes December 01, 018 8:26am Living Will No April 12 2 023 10:20am Power of Peace Officer No April 12, 2023 10:20am Advance Directive Response Recorded Date/ Time Name of Medical Power of Peace Officer Boy ([place]) [facility] March 12, 2023 5:35am Advance Directives on File No Decem bela 2022 10:42am Advance Directives on File No Bill ry 2023 8:31am Name of Medical Power of Peace Officer Boyroger Huber May 12, 2023 12:53pm Advance Directives Yes May 12, 2023 8:31am Living Will Yes May 12 12:53pm Power of Peace Officer Yes May 12, 2023 12:53pm Advance Directive Response Recorded Date/ Time Advance Directives on File No Decem bela 2022 11:42am Advance Directives on File No Janua 2023 9:31am Name of Medical Power of Peace Officer Boy Huber May 12, 2023 1:53pm Advance Directives Yes May 12, 2023 9:31am Living Will Yes May 12 1:53pm Power of Peace Officer Yes May 12, 2023 1:53pm Advance Directive Response Recorded Date/ Time Advance Directives on File No Aprua 2023 9:31am Name of Medical Power of Peace Officer Boy Huber May 12, 2023 1:53pm Advance Directives Yes May 12, 2023 9:31am Living Will Yes May 12 1:53pm Power of Peace Officer Yes May 12, 2023 1:53pm Advance Directive Response Recorded Date/ Time Living Will Yes May 12 1:53pm Do you have a Healthcare Power of Peace Officer? Yes May 12, 2023 1:53pm Advance Directives Yes May 12, 2023 9:31am Advance Directive Response Recorded Date/ Time Advance Directives Yes May 12, 2023 9:31am Advance Directive Response Recorded Date/ Time Do you have a Healthcare Power of Peace Officer? Yes November 23, 2024 3:57pm Advance Directives Yes May 12, 2023 9:31am Advance Directive Response Recorded Date/ Time Do you have a Healthcare Pow er of Peace Officer? Yes November 23, 2024 6:15pm Name of Medical Power of Peace Officer Boy Huber - cristal November 23, 2024 6:15pm Advance Directives Yes May 12, 2023 9:31am Summary Purpose Family History No Family History Records Found Additional Source Comments Goals (unrecognized section and content) Goals may be documented in a n alternate sectionGoals may be documented in an alternate sectionGoals may be documented in an alternate sectionGoals may be documented in an alternate sectionGoals may be documented in an alternate sectionGoals may be documented in an alternate sectionGoals may be documented in an alternate sectionGoals may be documented in an alternate sectionGoals may be documented in an alternate sectionGoals may be documented in an alternate sectionGoals may be documented in an alternate sectionGoals may be documented in an alternate sectionGoals may be documented in an alternate sectionGoals may be documented in an alternate section Care Teams (unrecognized sec tion and content) Team Status: Active Member Role Status Dates Dr. Elis Cardenas DO Family Provider Active Dr. Elis Cardenas DO Primary Care Provider Active Team Status: Inactive Member Role Status Dates Dr. Elis Cardenas DO Primary Care Provider, Referring P rovider Active Juliette Gayle CLAY DRY PRESS HELPER, CLAY DRY PRESS HELPER-C Attending Provider Active Team Status: Inactive Member Role Status Dates Dr. Elis Cardenas DO Primary Care Provider, Referring P rovider Active Dr. Afua Barry , DO Attending Provider Activ e Team Status: Active Member Role Status Dates Dr. Elis Cardenas DO Primary Care Provider Active Dr. Joseph Valdivia MD Attending Provider Active Dr. Afua Barry DO Referring Provider Activ e Team Status: Active Member Role Status Dates Dr. Elis Cardenas DO Primary Care Provider Active Dr. Afua Barry DO Attending Provider, Referring Provider, Other Provider Active Dr. Kourtney Virk MD Other Provider Active Team Status: Active Member Role Status Dates Dr. Elis Cardenas DO Primary Care Provider Active Dr. Afua Barry DO Attending Provider, Referring Provider, Other Provider Active Dr. Kourtney Virk MD Other Provider Active Dr. Jony Pratt , DO Other Provider Active Team Status: Inactive Member Role Status Dates Dr. Elis Cardenas DO Primary Care Provider Active Dr. Afua Barry , DO Attending Provider, Refe rring Provider Active Team Status: Inactive Member Role Status Dates Dr. Elis Cardenas , DO Primary Care Provider Active Dr. Afua Barry , DO Attending Provider, Refe rring Provider Active Dr. Kourtney Virk MD Other Provider Active Dr. Jony Pratt , DO Other Provider Active Team Status: Inactive Member Role Status Dates Dr. Elis Cardenas , DO Primary Care Provider, Attending P rovider Active Team Status: Active Member Role Status Dates Dr. Elis Cardenas , DO Primary Care Provider Active Self Referred Attending Provider Active Team Status: Inactive Member Role Status Dates Dr. Elis Cardenas DO Primary Care Provider Active Dr. Afua Anderson MD Emergency Provider Active Team Status: Inactive Member Role Status Dates Dr. Elis Cardenas , DO Primary Care Provide r, Attending Provider, Referring Provider Active Team Status: Inactive Member Role Status Dates Dr. Elis Cardenas DO Primary Care Provider Active Dr. Afua Anderson MD Attending Provider, Emergency Provider Active Team Status: Active Member Role Status Dates Dr. Elis Cardenas DO Primary Care Provide r, Attending Provider, Referring Provider Active Team Status: Inactive Member Role Status Dates Dr. Elis Cardenas DO Primary Care Provider, Referring P rovider Active Dr. Royal Martinez MD Attending Provider Active Team Status: Active Member Role Status Dates Dr. Elis Cardenas DO Primary Care Provider Active Dr. Martin Wilkins , DO Emergency Provider Active Dr. Lynne Tabares , DO Admit Provider, Attending Provide r, Other Provider Active Team Status: Active Member Role Status Dates Dr. Elis Cardenas DO Primary Care Provider Active Dr. Martin Wilkins , DO Emergency Provider Active Dr. Lynne Tabares , DO Admit Provider, Attending Provide r Active Team Status: Active Member Role Status Dates Dr. Elis Cardenas DO Primary Care Provider Active Dr. Martin Wilkins , DO Emergency Provider Active Dr. Lynne Tabares , DO Admit Provider, Other Provider Ac tive Dr. Kendal Hoffmann MD Attending Provider, Other Provid er Active Dr. Alfonso Anderson MD Other Provider Active Team Status: Active Member Role Status Dates Dr. Elis Cardenas DO Primary Care Provider Active Dr. Martin Wilkins , DO Emergency Provider Active Dr. Lynne Tabares , DO Admit Provider, Other Provider Ac tive Dr. Kendal Hoffmann MD Other Provider Active Dr. Alfonso Anderson MD Attending Provider, Other Provid er Active Team Status: Inactive Member Role Status Dates Dr. Elis Cardenas DO Primary Care Provider Active Dr. Martin Wilkins , DO Emergency Provider Active Dr. Lynne Tabares , DO Admit Provider, Other Provider Ac tive Dr. Kendal Hoffmann MD Other Provider Active Dr. Alfonso Anderson MD Attending Provider Active Team Status: Active Member Role Status Dates Dr. Elis Cardenas DO Primary Care Provider Active Dr. Kendal Hoffmann MD Attending Provider Active Team Status: Active Member Role Status Dates Dr. Elis Cardenas DO Primary Care Provider Active Dr. Bella Irving MD Attending Provider Active Dr. Lynne Tabares , DO Referring Provider Active Team Status: Inactive Member Role Status Dates Dr. Elis Cardenas DO Primary Care Provider Active Dr. Kendal Hoffmann MD Attending Provider, Referring Pr ovider Active Team Status: Inactive Member Role Status Dates Dr. Elis Cardenas DO Primary Care Provider, Referring P rovider Active Aiden Galan CLAY DRY PRESS HELPER, CLAY DRY PRESS HELPER-C Attending Provider Active Team Status: Active Member Role Status Dates Dr. Elis Cardenas DO Primary Care Provider Active Dr. Kendal Hoffmann MD Attending Provider , Referring Provider, Other Provider Active Team Status: Inactive Member Role Status Dates Dr. Elis Cardenas DO Primary Care Provider Active Aiden Galan CLAY DRY PRESS HELPER, CLAY DRY PRESS HELPER-C Attending Provider, Referring Pro vider Active Team Status: Inactive Member Role Status Dates Dr. Elis Cardenas DO Primary Care Provider Active Dr. Kendal Hoffmann MD Admit Provider, At tending Provider, Referring Provider Active Team Status: Active Member Role Status Dates Dr. Elis Cardenas DO Primary Care Provider Active Dr. Joseph Valdivia MD Attending Provider Active Dr. Kendal Hoffmann MD Referring Provider Active Team Status: Inactive Member Role Status Dates Dr. Elis Cardenas DO Primary Care Provider, Referring P rovider Active Dr. Bella Irving MD Attending Provider Active Team Status: Active Member Role Status Dates Dr. Elis Cardenas DO Primary Care Provider Active Dr. Bella Irving MD Attending Provider Active Team Status: Inactive Member Role Status Dates Dr. Elis Cardenas DO Primary Care Provider Active Aidne Galan CLAY DRY PRESS HELPER, CLAY DRY PRESS HELPER-C Attending Provider, Referring Pro vider Active Dr. Bella Irving MD Other Provider Active Team Status: Active Member Role Status Dates Dr. Elis Cardenas DO Primary Care Provider Active Dr. Kendal Hoffmann MD Attending Provider, Referring Pr ovider Active Team Status: Inactive Member Role Status Dates Dr. Elis Cardenas DO Primary Care Provider Active Dr. Kendal Hoffmann MD Attending Provider, Referring Pr ovider Active Dr. Joseph Valdivia MD Active Team Status: Active Member Role Status Dates Dr. Elis Cardenas DO Primary Care Provider Active Team Status: Inactive Member Role Status Dates Dr. Elis Cardenas DO Primary Care Provider Active Start: April 04, 2024 End: April 04, 2024 Dr. Bella Irving MD Attending Provider Active Start: April 04, 2024 End: April 04, 2024 Dr. Bella Irving MD Referring Provider Active Start: April 04, 2024 End: April 04, 2024 Team Status: Active Member Role Status Dates Dr. Elis Cardenas DO Primary Care Provider Active Start: April 04, 2024 Dr. Jakub Godinez MD Attending Provider Active S tart: April 04, 2024 Dr. Bella Irving MD Referring Provider Active Start: April 04, 2024 Team Status: Active Member Role Status Dates Dr. Elis Cardenas DO Primary Care Provider Active Start: April 04, 2024 Dr. Bella Irving MD Attending Provider Active Start: April 04, 2024 Team Status: Inactive Member Role Status Dates Dr. Elis Cardenas DO Primary Care Provider Active Start: April 25, 2024 End: April 25, 2024 Dr. Elis Cardenas DO Referring Provider Active St art: April 25, 2024 End: April 25, 2024 Dr. Royal Martinez MD Attending Provider Active Start: April 25, 2024 End: April 25, 2024 Team Status: Inactive Member Role Status Dates Dr. Elis Cardenas DO Primary Care Provider Active Start: May 02, 2024 End: May 02, 2024 Dr. Royal Martinez MD Attending Provider Active Start: May 02, 2024 End: May 02, 2024 Dr. Royal Martinez MD Referring Provider Active Start: May 02, 2024 End: May 02, 2024 Team Status: Inactive Member Role Status Dates Dr. Elis Cardenas DO Primary Care Provider Active Start: May 16, 2024 End: May 16, 2024 HANNA Jarvis Attending Provider Active Star t: May 16, 2024 End: May 16, 2024 Claribel FERREIRA, PA Referring Provider Active Start: May 16, 2024 End: May 16, 2024 Team Status: Inactive Member Role Status Dates Dr. Elis Cardenas DO Primary Care Provider Active Start: May 22, 2024 End: May 22, 2024 Dr. Elis Cardenas DO Attending Provider Active St art: May 22, 2024 End: May 22, 2024 Team Status: Inactive Member Role Status Dates Dr. Elis Cardenas DO Primary Care Provider Active Start: July 13, 2024 End: July 13, 2024 Dr. Elis Cardenas DO Referring Provider Active St art: July 13, 2024 End: July 13, 2024 Dr. Royal Martinez MD Attending Provider Active Start: July 13, 2024 End: July 13, 2024 Team Status: Active Member Role Status Dates Dr. Elis Cardenas DO Primary Care Provider Active Start: July 17, 2024 Self Referred Attending Provider Active Start: [facility] 2024 Self Referred Referring Provider Active Start: [facility] 2024 Team Status: Inactive Member Role Status Dates Dr. Elis Cardenas DO Primary Care Provider Active Start: July 17, 2024 End: July 17, 2024 Dr. Bella Irving MD Attending Provider Active Start: July 17, 2024 End: July 17, 2024 Dr. Bella Irving MD Referring Provider Active Start: July 17, 2024 End: July 17, 2024 Team Status: Inactive Member Role Status Dates Dr. Elis Cardenas DO Primary Care Provider Active Start: August 24, 2024 End: August 24, 2024 Dr. Elis Cardenas DO Referring Provider Active St art: August 24, 2024 End: August 24, 2024 Dr. Bella Irving MD Attending Provider Active Start: August 24, 2024 End: August 24, 2024 Team Status: Inactive Member Role Status Dates Dr. Elis Cardenas DO Primary Care Provider Active Start: September 27, 2024 End: September 27, 2024 Dr. Elis Cardenas DO Referring Provider Active St art: September 27, 2024 End: September 27, 2024 Afua Banuelos NP-C Attending Provider Active Start: September 27, 2024 End: September 27, 2024 Team Status: Inactive Member Role Status Dates Dr. Elis Cardenas DO Primary Care Provider Active Start: September 27, 2024 End: September 27, 2024 Afua Banuelos NP-C Attending Provider Active Start: September 27, 2024 End: September 27, 2024 Afua Banuelos NP-C Referring Provider Active Start: September 27, 2024 End: September 27, 2024 Team Status: Inactive Member Role Status Dates Dr. Elis Cardenas DO Primary Care Provider Active Start: October 18, 2024 End: October 18, 2024 Dr. Elis Cardenas DO Referring Provider Active St art: October 18, 2024 End: October 18, 2024 Afua Banuelos NP-C Attending Provider Active Start: October 18, 2024 End: October 18, 2024 Team Status: Active Member Role/Relationship Status Dates Dr. Elis Cardenas DO Primary Care Provider Active Team Status: Active Member Role/Relationship Status Dates Dr. Elis Cardenas DO Primary Care Provider Active Start: July 17, 2024 Self Referred Attending Provider Active Start: [facility] 2024 Self Referred Referring Provider Active Start: [facility] 2024 Team Status: Inactive Member Role/Relationship Status Dates Dr. Elis Cardenas DO Primary Care Provider Active Start: July 17, 2024 End: July 17, 2024 Dr. Bella Irving MD Attending Provider Active Start: July 17, 2024 End: July 17, 2024 Dr. Bella Irving MD Referring Provider Active Start: July 17, 2024 End: July 17, 2024 Team Status: Inactive Member Role/Relationship Status Dates Dr. Elis Cardenas DO Primary Care Provider Active Start: August 24, 2024 End: August 24, 2024 Dr. Elis Cardenas DO Referring Provider Active St art: August 24, 2024 End: August 24, 2024 Dr. Bella Irving MD Attending Provider Active Start: August 24, 2024 End: August 24, 2024 Team Status: Inactive Member Role/Relationship Status Dates Dr. Elis Cardenas DO Primary Care Provider Active Start: September 27, 2024 End: September 27, 2024 Dr. Elis Cardenas DO Referring Provider Active St art: September 27, 2024 End: September 27, 2024 NICOLAS LandaC Attending Provider Active Start: September 27, 2024 End: September 27, 2024 Team Status: Inactive Member Role/Relationship Status Dates Dr. Elis Cardenas DO Primary Care Provider Active Start: September 27, 2024 End: September 27, 2024 Afua Banuelos CLAY DRY PRESS HELPER-C Attending Provider Active Start: September 27, 2024 End: September 27, 2024 Afua Banuelos NP-C Referring Provider Active Start: September 27, 2024 End: September 27, 2024 Team Status: Inactive Member Role/Relationship Status Dates Dr. Elis Cardenas DO Primary Care Provider Active Start: October 18, 2024 End: October 18, 2024 Dr. Elis Cardenas DO Referring Provider Active St art: October 18, 2024 End: October 18, 2024 NICOLAS LandaC Attending Provider Active Start: October 18, 2024 End: October 18, 2024 Team Status: Inactive Member Role/Relationship Status Dates Dr. Elis Cardenas DO Primary Care Provider Active Start: November 07, 2024 End: November 07, 2024 EASTON SPENCER NP-C Attending Provider Active Start: November 07, 2024 End: November 07, 2024 NICOLAS CHAVEZC Referring Provider Active Start: November 07, 2024 End: November 07, 2024 Team Status: Inactive Member Role/Relationship Status Dates Dr. Elis Cardenas DO Primary Care Provider Active Start: August 24, 2024 End: August 24, 2024 Dr. Elis Cardenas DO Referring Provider Active St art: August 24, 2024 End: August 24, 2024 Dr. Bella Irving MD Attending Provider Active Start: August 24, 2024 End: August 24, 2024 Team Status: Inactive Member Role/Relationship Status Dates Dr. Elis Cardenas DO Primary Care Provider Active Start: September 27, 2024 End: September 27, 2024 Dr. Elis Cardenas DO Referring Provider Active St art: September 27, 2024 End: September 27, 2024 Afua Vin , CLAY DRY PRESS HELPER-C Attending Provider Active Start: September 27, 2024 End: September 27, 2024 Team Status: Inactive Member Role/Relationship Status Dates Dr. Elis Cardenas DO Primary Care Provider Active Start: September 27, 2024 End: September 27, 2024 Afua Banuelos NP-C Attending Provider Active Start: September 27, 2024 End: September 27, 2024 Afua Banuelos NP-C Referring Provider Active Start: September 27, 2024 End: September 27, 2024 Team Status: Inactive Member Role/Relationship Status Dates Dr. Elis Cardenas DO Primary Care Provider Active Start: October 18, 2024 End: October 18, 2024 Dr. Elis Cardenas DO Referring Provider Active St art: October 18, 2024 End: October 18, 2024 Afua Banuelos CLAY DRY PRESS HELPER-C Attending Provider Active Start: October 18, 2024 End: October 18, 2024 Team Status: Inactive Member Role/Relationship Status Dates Dr. Elis Cardenas DO Primary Care Provider Active Start: October 24, 2024 Dr. Kourtney Virk MD Attending Provider Active Start: October 24, 2024 Team Status: Inactive Member Role/Relationship Status Dates Dr. Elis Cardenas DO Primary Care Provider Active Start: November 07, 2024 End: November 07, 2024 EASTON SPENCER NP-C Attending Provider Active Start: November 07, 2024 End: November 07, 2024 EASTON SPENCER NP-C Referring Provider Active Start: November 07, 2024 End: November 07, 2024 Team Status: Inactive Member Role/Relationship Status Dates Dr. Elis Cardenas DO Primary Care Provider Active Start: November 13, 2024 End: November 13, 2024 Dr. Lucian Munoz DO Attending Provider Active Start: November 13, 2024 End: November 13, 2024 Dr. Lucian Munoz DO Referring Provider Active Start: November 13, 2024 End: November 13, 2024 Team Status: Active Member Role/Relationship Status Dates Dr. Elis Cardenas DO Primary Care Provider Active Start: November 23, 2024 Arnulfo Perrin MD Emergency Provider Active Star t: November 23, 2024 Dr. Tad Trimble DO Admit Provider Active Start: November 23, 2024 Dr. Tad Trimble DO Attending Provider Active Start: November 23, 2024 Team Status: Inactive Member Role/Relationship Status Dates Dr. Elis Cardenas DO Primary Care Provider Active Start: November 23, 2024 End: November 24, 2024 Arnulfo Perrin MD Emergency Provider Active Star t: November 23, 2024 End: November 24, 2024 Dr. Tad Trimble DO Admit Provider Active Start: November 23, 2024 End: November 24, 2024 Dr. Tad Trimble DO Other Provider Active Start: November 23, 2024 End: November 24, 2024 Raul Rachel MD Other Provider Active Start: 2024 End: November 24, 2024 Dr. Nisha Plunkett MD Other Provider Active Start: November 23, 2024 End: November 24, 2024 Kelly Nicolas MD Other Provider Active Start : November 23, 2024 End: November 24, 2024 Dr. Uzma Torres DO Other Provider Active St art: November 23, 2024 End: November 24, 2024 Dr. Krissy Castillo MD Other Provider Active Start: November 23, 2024 End: November 24, 2024 Dr. Dev Sosa MD Other Provider Active Sta rt: November 23, 2024 End: November 24, 2024 Dr. Rosanna Walker MD Other Provider Active Start : November 23, 2024 End: November 24, 2024 Dr. Davi Garcia MD Other Provider Active Start: November 23, 2024 End: November 24, 2024 Dr. Luis M Gomez MD Other Provider Active Start : November 23, 2024 End: November 24, 2024 Dr. Steven Alvarez MD Other Provider Active Sta rt: November 23, 2024 End: November 24, 2024 Trice Dumont MD Other Provider Active Start : November 23, 2024 End: November 24, 2024 Dr. Michael Slade MD Other Provider Active St art: November 23, 2024 End: November 24, 2024 Dr. Jeni Lockett MD Other Provider Active Start : November 23, 2024 End: November 24, 2024 Dr. Scar Vogt MD Other Provider Active Sta rt: November 23, 2024 End: November 24, 2024 Dr. Nellie Whittaker MD Other Provider Active Start: November 23, 2024 End: November 24, 2024 Dr. Stevie Burch MD Other Provider Active St art: November 23, 2024 End: November 24, 2024 Dr. Rachel Holman MD Other Provider Active Star t: November 23, 2024 End: November 24, 2024 Dr. Washington Daily MD Other Provider Active St art: November 23, 2024 End: November 24, 2024 Dr. Batool Tabares MD Other Provider Active Start: November 23, 2024 End: November 24, 2024 Lobo Monroe MD Other Provider Active Start: November 23, 2024 End: November 24, 2024 Dr. Lynne Tabares DO Attending Provider Active S tart: November 23, 2024 End: November 24, 2024 INFORMATION SOURCE (unrecogn ized section and content) DATE CREATED AUTHOR 08/22/2024 [facility] DATE CREATED AUTHOR AUTHOR'S ORGANIZ ATION 01/14/2025 [facility] FOR RECORDS PERTAINING TO PATIENTS WHO ARE OR HAVE BEEN ENROLLED IN A CHEMICAL DEPENDENCY/SUBSTANCEABUSE PROGRAM, SOME INFORMATION MAY BE OMITTED. This clinical summary was aggregated from multiple sources. Caution should be exercised in using it in the provision of clinical care. This summary normalizes information from multiple sources, and as a consequence, information in this document may materially change the coding, format and clinical context of patient data. In addition, data may be omitted in some cases. CLINICAL DECISIONS SHOULD BE BASED ON THE PRIMARY CLINICAL RECORDS. [facility]. provides no warranty or guarantee of the accuracy or completeness of information in this document.
== END | disposition home or self-care (01) ==
LOC: OPBI 12:13
PROVIDERS: PCP Family Medicine; Referring Provider Family Medicine; Visit Provider Family Medicine
DX: Z12.31 Encounter for screening mammogram for malignant neoplasm of breast (principal)
CPT/HCPCS: 77063; 77067

== ENCOUNTER → 2025-02-27 | Outpatient (CLI) | payer MEDICARE, OTHER, SELFPAY ==
[2023-08-11 09:38] VITALS: BMI 29.8
[2025-02-27 18:28] LABS: AST(SGOT) 18 U/L (<=31); Alanine Aminotransfer ALT/SGPT 17 U/L (<=34); Albumin, Serum 3.9 g/dL (3.4-4.8); Alkaline Phosphatase 87 U/L (35-104); Anion Gap 10 (5-15); BUN 19 mg/dL (4-19); BUN/Creat Ratio 17.1 RATIO (10-20); Calcium,Total 8.8 mg/dL (7.6-11.0); Carbon Dioxide 22.8 mmol/L (21.0-32.0); Chloride 107 mmol/L (98-108); Globulin 2.4 g/dL (2.2-4.2); Glucose 97 mg/dL (70-99); Potassium 4.2 mmol/L (3.3-5.1)
[2025-03-02 09:08] LABS: Thyroglobulin, Serum Qt. < 0.1 ng/mL (1.5-38.5)
== END | disposition home or self-care (01) ==
LOC: MTLAB 14:42
PROVIDERS: PCP Family Medicine; Referring Provider Nurse Practitioner Adult Health; Visit Provider Nurse Practitioner Adult Health
DX: E89.0 Postprocedural hypothyroidism (principal); Z85.850 Personal history of malignant neoplasm of thyroid
CPT/HCPCS: 36415; 80053; 84432; 84443; 86800

== ENCOUNTER → 2025-03-30 | Outpatient (CLI) | payer MEDICARE, OTHER, SELFPAY ==
[2023-08-11 09:38] VITALS: BMI 29.8
--- OUTSIDE RECORDS SUMMARY | 2025-03-30 07:07 | XMS RPT_ITS | CCD ---
Author Organization [facility]ini[facility] Care Team Providers Care Cardiac Monitor Technician Name Role Phone Dr. Elis Cardenas Primary Care Provider Dr. Jakub Godinez Attending Provider [phone] Elis Cardenas Referring Provider Dr. Afua Barry Attending Provider [phone] Dr. Elis Cardenas Primary Care Provider Dr. Jakub Godinez Attending Provider [phone] Elis Cardenas Referring Provider Dr. Afua Barry Attending Provider [phone] DORINDA Galye NP Attending Provider [phone] Dr. Elis Cardenas Primary Care Provider [phone] Dr. Elis Cardenas Referring Provider Dr. Afua Barry Attending Provider [phone] Dr. Joseph Valdivia Attending Provider [phone] Afua Barry Referring Provider [phone] Dr. Afua Barry Other Provider Dr. Kourtney Virk Other Provider Dr. Jony Pratt Other Provider Dr. Elis Cardenas Primary Care Provider Dr. Elis Cardenas Referring Provider Dr. Afua Barry Attending Provider [phone] Dr. Ronald Elis Primary Care Provider Ronald, Dr. Gillis Referring Provider [phone] Dr. Royal Martinez Attending Provider Dr. Martin Wilkins Emergency Provider Dr. Lynne Tabares Admit Provider Dr. Lynne Tabares Attending Provider Dr. Lynne Tabares Other Provider Shun, Dr. Edmonds Attending Provider Shun, Dr. Edmonds Other Provider Dr. Alfonso Anderson Other Provider Unavailable Dr. Alfonso Anderson Attending Provider Unavailable Aristdies, Dr. Blanco Attending Provider Dr. Lynne Tabares Referring Provider Roof MACHINE SET UP TECHNICIAN, MACHINE SET UP TECHNICIAN-Nicol Marie Attending Provider Shun, Dr. Edmonds Referring Provider Ronald, Dr. Gillis Primary Care Provider Ronald, Dr. Gillis Referring Provider [phone] Dr. Joseph Valdivia Attending Provider Ronald, Dr. Gillis Primary Care Provider Shun, Dr. Edmonds Attending Provider Ronald, Dr. Gillis Referring Provider Roof MACHINE SET UP TECHNICIAN, MACHINE SET UP TECHNICIAN-Nicol Marie Attending Provider Shun, Dr. Edmonds Referring [...] Unavailable Referred, Self Referring Provider Unavailable TJ HAY RAKE OPERATOR-PRODUCTION HAND, EASTON Auguste Attending Unava ilable RONALD BONILLA, [...] Unavailable Dimitrios GOULD, Dr. Cameron Other Provider [phone] Kelly Nicolas MD Other Provider Unavailable [...] Unavailable Rayshawn BONILLA, Dr. Batista Attending Provider Ronald BONILLA, Dr. Gillis Primary Care Physician Ronald BONILLA, Dr. Gillis Referring Provider Vin MACHINE SET UP TECHNICIAN-C, Afua Attending Physician [phone] Moose GOULD, Dr. Oconnell Attending Physician TJ MACHINE SET UP TECHNICIAN-C, EASTON Attending Physician Tammy BONILLA, Dr. Epstein Attending Physician Aydin GOULD, Arnulfo Emergency Department Physician Atilio BONILLA, Dr. Mishra Admitting Physician Atilio BONILLA, Dr. Mishra Nurse Practitioner Virginie GOULD, Raul Nurse Practitioner Unavailable Dimitrios GOULD, Dr. Cameron Nurse Practitioner Maria Isbael GOULD, Kelly Nurse Practitioner Unavailab gisela Torres DO, Dr. Gusman Nurse Practitioner Anna GOULD, Dr. Rey Nurse Practitioner [phone] Sheila GOULD, Dr. Méndez Nurse Practitioner Denise GOULD, Dr. Marte Nurse Practitioner Radha GOULD, Dr. Tomlinson Nurse Practitioner Jason GOULD, Dr. Asencio Nurse Practitioner Antonio GOULD, Dr. Harris Nurse Practitioner Trice Dumont MD Nurse Practitioner Berlin GOULD, Dr. Rodriguez Nurse Practitioner Levy GOULD, Dr. Ngo Nurse Practitioner Sin GOULD, Dr. Abbott Nurse Practitioner Remedios GOULD, Dr. Nellie Carballo Nurse Practitioner Marcin GOULD, Dr. Hubbard Nurse Practitioner Manda GOULD, Dr. Ramos Nurse Practitioner [phone] Killian GOULD, Dr. Delarosa Nurse Practitioner Rayshawn GOULD, Dr. Renae Nurse Practitioner Unavailpraneeth Monroe MD, Lobo Nurse Practitioner Unavailpraneeth Tabares DO, Dr. Batista Attending Physician [phone] Jomar GOULD, Chet Attending Physician Rayshawn BONILLA, Dr. Batista Referring Provider Rayshawn BONILLA, Dr. Batista Nurse Practitioner Ronald BONILLA, Dr. Gillis Attending Physician Malys, Elis Primary Care Unavailable Raul Rachel Consulting Unavailable Lynne Tabares Attending Unavailable Tad Trimble Admitting Unavailable Adeli, Amir Consulting Unavailable Hinduja, Kelly Consulting Unavailable Brian, Uzma Consulting Unavailable Zha, Krissy Consulting Unavailable Sheila, Dev Consulting Unavailable Denise, Rosanna Consulting Unavailable Bittar, Davi Consulting Unavailable Luis M Gomez Consulting Unavailable Steven Alvarez Consulting Unavailable Trice Dumont Consulting Unavailable Michael Slade Consulting Unavailable Jeni Lockett Consulting Unavailable Ridalexey, Scar Consulting Unavailable Remedios, Mhd Haris Consulting UnavailStevie Huynh Consulting Unavailable Rachel Holman Consulting Unavailable [place] Daily Consulting Unavailable Batool Tabares Consulting Unavailable Lobo Monroe Consulting Unavailable Tad Trimble Consulting Unavailable Lynne Tabares Consulting Unavailable Malys, Elis Primary Care Unavailable TJEASTON Attending Unavailable TJ, EASTON Referring Unavailable Malys, Elis Primary Care Unavailable TJEASTON Attending Unavailable TJ, EASTON Referring Unavailable Lucian Munoz Attending Unavailable Ynesetesilvano Lucian Referring Unavailable Malys, Elis Primary Care Unavailable Afua Banuelos Attending Unavailable VinAfua Referring Unavailable Malys, Elis Primary Care Unavailable VinAfua tabares Attending Unavailable Malys, Elis Referring Unavailable Malys, Elis Primary Care Unavailable Malys, Elis Referring Unavailable Malys, Elis Primary Care Unavailable Aristides, Bella Attending Unavailable Malys, Elis Referring Unavailable Malys, Elis Primary Care Unavailable Aristides, Bella Attending Unavailable Malys, Elis Attending Unavailable Malys, Elis Primary Care Unavailable Referred, Self Attending Unavailable Referred, Self Referring Unavailable Malys, Elis Primary Care Unavailable Michelle, Royal Attending Unavailable Baddour, Royal Referring Unavailable Malys, Elis Primary Care Unavailable Aristides, Bella Attending Unavailable Aristides, Bella Referring Unavailable Malys, Elis Primary Care Unavailable Malys, Elis Primary Care Unavailable Aristides, Bella Attending Unavailable Aristides, Bella Referring Unavailable Afua Banuelos Attending Unavailable Malys, Elis Referring Unavailable Malys, Elis Primary Care Unavailable Baddour, Royal Attending Unavailable Malys, Elis Referring Unavailable Malys, Elis Primary Care Unavailable Aristides, Bella Attending Unavailable Malys, Elis Primary Care Unavailable Malys, Elis Primary Care Unavailable Raul Rachel Consulting Unavailable Lynne Tabares Attending Unavailable Tad Trimble Admitting Unavailable Adeshaneka, Nisha Consulting Unavailable Kelly Nicolas Consulting Unavailable Uzma Torres Consulting Unavailable Anna, Rkissy Consulting Unavailable Sheila, Dev Consulting Unavailable Denise, Rosanna Consulting Unavailable Bittar, Daiv Consulting Unavailable Luis M Gomez Consulting Unavailable Steven Alvarez Consulting Unavailable Trice Dumont Consulting Unavailable Michael Slade Consulting Unavailable Jeni Lockett Consulting Unavailable RidScar blackburn Consulting Unavailable Zaghtaylor, Mhd Haris Consulting UnavailStevie Huynh Consulting Unavailable Holman, Rami Consulting Unavailable [place] Consulting Unavailable Batool Tabares Consulting Unavailable Lobo Monroe Consulting Unavailable Tad Trimble Consulting Unavailable Avril, Joe Attending Unavailable Malys, Elis Primary Care Unavailable Malys, Elis Referring Unavailable Malys, Elis Primary Care Unavailable Malys, Elis Attending Unavailable Malys, Elis Primary Care Unavailable EASTON SPENCER Attending Unavailable EASTON SPENCER Referring Unavailable Jakub Godinez Attending Unavailable Aristides, Bella Referring Unavailable Malys, Elis Primary Care Unavailable Baddour, Royal Attending Unavailable Malys, Elis Referring Unavailable Malys, Elis Primary Care Unavailable Uzma Lopez Attending Unavailable Claribel Sims Referring Unavail able Malys, Elis Primary Care Unavailable Aristides, Bella Attending Unavailable Malys, Elis Referring Unavailable Malys, Elis Primary Care Unavailable Aristides, Bella Attending Unavailable Elis Cardenas Primary Care Unavailable Bella Irving Referring Unavailable Chet Hadley Attending Unavailable Elis Cardenas Primary Care Unavailable Lynne Tabares Referring Unavailable Tad Trimble Attending Unavailable Allergies Allergy Classification Reported Allergen(s) Allergy Type Date of Onset Reaction(s) Facility (20 sources) Adhesive Tape; Translations: [adhesive tape] Allergy to substance 2 Rash [facility] Comment on above: PLASTIC TAPE (20 sources) Penicillins Allergy to substance 2 Rash [facility] (20 sources) Sulfonamides (Antibiotic) Allergy to substance 2 Rash [facility] (20 sources) pepper (genus Capsicum) Allergy to substance 2 Swelling [facility] Comment on above: LIP SWELLING WITH JA LEPENO (1 source) Penicillins Drug allergy (disorder) 5 [facility] (1 source) Sulfonamides (Antibiotic) Drug allergy (disorder) 5 [facility] (1 source) pepper (genus Capsicum) Drug allergy (disorder) 5 [facility] Medications Current Medications Medication Drug Class(es) Dates Sig (Normalized) Sig (Original) amLODIPine 10 mg oral tablet (20 sources) Dihydropyridine Calcium Channel Becca Start: 08-24-2024 take 1 tablet by mouth once daily Start: 09-22-2015 End: 08-24-2024 take 1 tablet by mouth once daily Amlodipine 5 mg tablet Discontinued 5 mg PO DAILY 90 August 23, 2024 12:43pm August 24, 2024 4:42pm ascorbic acid 500 mg oral tablet (20 sources) Vitamin C Start: 05-21-2022 take 1 tablet by mouth once daily aspirin 81 mg delayed release oral tablet (20 sources) Platelet Aggregation Inhibitor, Nonsteroidal Anti-inflammatory Drug Start: 03-13-2023 take 1 tablet by mouth once daily Start: 05-21-2022 End: 04-23-2023 take 1 capsule [...] Start: 05-21-2022 take 2 tablets by mo [facility] once daily Calcium Carb And Citrate-Vitd3 (Citracal-D3 Slow Release) 600 mg-12.5 mcg (500 unit) Tablet Extended Release Active 2 TABLET PO DAILY May 21, 2022 12:00am cholecalciferol 0.125 mg ora l tablet (20 sources) Vitamin D Start: 05-21-2022 take 1 tablet by aly once daily Start: 10-11-2015 End: 10-12-2019 take 1 tablet by mouth once daily Cholecalciferol (Vitamin D3) 1,000 UNIT tablet Discontinued 1000 U PO DAILY@1800 0 October 11, 2015 12:00am October 12, 2019 5:14pm citalopram 10 mg oral tablet (20 sources) Serotonin Reuptake Inhibitor Start: 11-23-2024 take 1 tablet by mouth once daily Start: 02-16-2023 End: 08-17-2023 take 1 tablet by mouth once daily Citalopram 10 mg tablet Discontinued 10 mg PO DAILY 30 February 16, 2023 12:00am August 17, 2023 11:30am [...] 2:23pm Good From 04/23/2023-04/23/2028 levothyroxine sodium 0.137 m g oral tablet (20 sources) l-Thyroxine Start: 04-23-2023 take 1 tablet by aly once daily Start: 12-25-2021 End: 04-23-2023 Levothyroxine 175 mcg [...] take 1 tablet by mouth once daily Start: 03-13-2023 End: 07-07-2023 take 1 tablet by mouth once daily Lisinopril 2.5 mg tablet Discontinued 2.5 mg PO DAILY 90 March 13, 2023 1:00am July 07, 2023 1:09pm Start: 09-07-2015 End: 09-07-2015 take 2 tablets by mouth once daily Lisinopril 10 MG tablet Discontinued 20 mg PO DAILY 30 September 07, 2015 12:00am September 07, 2015 4:02pm Start: 09-07-2015 End: 05-13-2023 take 1 tablet by mouth once daily Lisinopril 20 MG tablet Discontinued 20 mg PO DAILY 30 October 11, 2015 9:02pm May 13, 2023 11:22am Start: 09-07-2015 End: 09-07-2015 take 20 mg by mouth once daily Lisinopril Discontinued 20 MG PO DAILY September 07, 2015 12:00am September 07, 2015 4:02pm lysine 1000 mg oral tablet (20 sources) Start: 09-26-2024 Start: 05-21-2022 End: 09-26-2024 take 1 tablet by mouth once daily Lysine 1,000 mg Tablet Discontinued 1000 mg PO DAILY May 21, 2022 1:00am September 26, 2024 8:44am ticagrelor 90 mg oral tablet (20 sources) Start: 11-23-2024 take 1 tablet by mouth once da jose Start: 05-13-2023 End: 07-07-2023 take 1 tablet by mouth twice daily Ticagrelor (Brilinta) 90 mg Tablet Discontinued 90 mg PO TWICE A DAY 60 May 13, 2023 1:00am July 07, 2023 1:11pm Start: 03-13-2023 End: 04-08-2023 take 1 tablet by mouth twice daily Ticagrelor (Brilinta) 90 mg Tablet Discontinued 90 mg PO TWICE A DAY 180 March 13, 2023 1:00am April 08, 2023 [...] 2022 12:00am Zinc Lozenges 15 mg lozenge (8 sources) Start: 09-26-2024 Start: 09-26-2024 Zinc Lozenges 15 mg lozenge [...] 21, 2022 12:00am March 12, 2023 4:53am [place] (20 sources) Start: 09-02-2015 End: 10-11-2015 take 1 tablet by mouth once daily [place] 600 MG tablet Discontinued 600 mg PO DAILY September 02, 2015 12:00am October 11, 2015 9:02pm Start: 09-02-2015 End: 10-11-2015 take 600 mg by mouth once daily [place] Discontinued 600 MG PO DAILY September 01, 2015 11:00pm October 11, 2015 8:02pm Start: 09-02-2015 End: 10-11-2015 take 600 mg by mouth once daily [place] Discontinued 600 MG PO DAILY September 02, 2015 12:00am October 11, 2015 9:02pm atenolol 25 mg oral tablet (20 sources) beta-Adrenergic Becca Start: 12-25-2021 End: 08-07-2024 take 1 tablet by mouth once daily Atenolol 25 mg tablet Discontinued 25 mg PO DAILY 90 3 October 11, 2023 3:59pm August 07, 2024 [...] take 1 tablet by mouth once daily Start: 10-11-2023 End: 03-13-2024 take 1 tablet by mouth at bedtime Atorvastatin 20 mg tablet Discontinued 20 mg PO AT BEDTIME 90 October 11, 2023 12:00am March 13, 2024 3:56pm Start: 02-15-2023 End: 07-07-2023 take 1 tablet by mouth once daily Atorvastatin 40 mg tablet Discontinued 40 mg PO DAILY 90 February 15, 2023 12:00am July 07, 2023 1:11pm B-Complex With Vitamin C Tablet (9 sources) Start: 05-21-2022 End: 09-26-2024 B-Complex With Vitamin C Tab let Discontinued 1 {tbl} PO DAILY May 21, 2022 1:00am September 26, 2024 8:41am Start: 05-21-2022 B-Complex With Vitamin C Tablet Active 1 {tbl} PO DAILY May 21, 2022 1:00am bisacodyl 5 mg delayed release oral tablet (8 sources) Stimulant Laxative Start: 09-27-2024 End: 11-23-2024 take 1 tablet by mouth once as needed Bisacodyl (Gentle Laxative (Bisacodyl)) 5 mg tablet,delayed release (DR/EC) Discontinued 5 mg PO ONCE as needed September 27, 2024 12:00am November 23, 2024 4:35pm Calcium Carb, Citrate-Vit D3 (Citracal-D3 Slow Release) 600 mg-12.5 mcg (500 unit) Tablet Extended Release (9 sources) Start: 05-21-2022 End: 09-26-2024 Calcium Carb, [...] mg/ml ophthalmic solution (20 sources) Plasma Volume [facility] Start: 09-07-2015 End: 10-12-2019 take 1 drop(s) into the eye(s) every three hours as needed Dextran 70-Hypromellose 1 DROP bottle Discontinued 1 - 2 NMA LEFT EYE EVERY 3 HOURS NEEDED as needed for DRY EYE/IRRITATION 2 September 07, 2015 12:00am October 12, 2019 5:14pm Start: 09-07-2015 End: 10-12-2019 Dextran 70-Hypromellose Disc ontinued 1 - 2 DRP LEFT EYE EVERY 3 HOURS NEEDED September 07, 2015 12:00am October 12, 2019 [...] 4:14pm docusate sodium 50 mg / sennosides, shelter 8.6 mg oral tablet (20 sources) Start: 10-11-2015 End: 11-10-2017 Sennosides-Docusate Sodium 1 TABLET tablet Discontinued 1 {tbl} PO TWICE A DAY 30 0 October 11, 2015 12:00am November 10, 2017 2:27pm Start: 10-11-2015 End: 11-10-2017 take 1 tablet by mouth twice daily Sennosides-Docusate Sodium Discontinued 1 TABLET PO TWICE A DAY October 11, 2015 12:00am November 10, 2017 [...] a week; ezetimibe 10 mg oral tablet (12 sources) Dietary Cholesterol Absorption Inhibitor Start: 07-14-2023 [...] MG PO DAILY May 21, 2022 12:00am Wawjrpaz-Ugud-Wye4-C-Dante-Ned sw (Osteo Bi-Flex Triple Strength) 1 EACH tablet (20 sources) Start: 09-02-2015 End: 10-11-2015 take 1 tablet by mouth once daily Zicygbyk-Dcul-Gvx5-C-Dante-Bosw (Osteo Bi-Flex Triple Strength) 1 EACH tablet Discontinued 2 NMA PO DAILY September 02, 2015 12:00am October 11, 2015 9:02pm Start: 09-02-2015 End: 10-11-2015 take 1 tablet by mouth once daily Sncrwxed-Ibdv-Fts4-C-Dante-Bosw (Osteo Bi -Flex Triple Strength) 1 EACH tablet Discontinued 2 EACH PO DAILY September 01, 2015 11:00pm October 11, 2015 8:02pm Start: 09-02-2015 End: 10-11-2015 take 1 tablet by mouth once daily Robuftxt-Svtc-Vxh8-C-Dante-Bosw (Osteo Bi -Flex Triple Strength) 1 EACH [...] 2017 2:26pm linaclotide 0.29 mg oral capsule (7 sources) Guanylate Cyclase-C Agonist Start: 09-27-2024 End: [...] MG PO DAILY May 21, 2022 12:00am [place]-3 Fatty Acids (13 sources) Start: 05-21-2022 End: 02-15-2023 take 1000 mg by mouth once daily [place]-3 Fatty Acids Discontinued 1000 MG PO DAILY May 21, 2022 1:00am February 15, 2023 9:19am Start: 05-21-2022 End: 02-15-2023 take 1000 mg by mouth once daily [place]-3 Fatty Acids Discontinued 1000 MG PO DAILY May 21, 2022 12:00am February 15, 2023 8:19am Start: 05-21-2022 take 1000 mg by mout h once daily [place]-3 Fatty Acids Active 1000 MG PO DAILY May 21, 2022 1:00am Start: 05-21-2022 take 1000 mg by mout h once daily [place]-3 Fatty Acids Active 1000 MG PO DAILY May 21, 2022 12:00am [place]-3 Fatty Acids (Fish Oil) 300 MG capsule (20 sources) Start: 09-02-2015 End: 10-11-2015 take 1 capsule by mouth once daily [place]-3 Fatty Acids (Fish Oil) 300 MG capsule Discontinued 300 mg PO DAILY September 02, 2015 12:00am October 11, 2015 9:02pm Start: 09-02-2015 End: 10-11-2015 take 1 capsule by mouth once daily [place]-3 Fatty Acids (Fish Oil) 300 MG capsule Discontinued 300 MG PO DAILY September 01, 2015 11:00pm October 11, 2015 8:02pm Start: 09-02-2015 End: 10-11-2015 take 1 capsule by mouth once daily [place]-3 Fatty Acids (Fish Oil) 300 MG capsule Discontinued 300 MG PO DAILY September 02, 2015 12:00am October 11, 2015 9:02pm [place]-3 Fatty Acids Capsule (9 sources) Start: 05-21-2022 End: 02-15-2023 take 1 capsule by mouth once daily [place]-3 Fatty Acids Capsule Discontinued 1000 mg PO [...] 9:02pm Turmeric Root Extract 500 mg Capsule (9 sources) Start: 05-21-2022 End: 09-26-2024 take 1 capsule by mouth once daily Turmeric Root Extract 500 mg Capsule Discontinued 500 mg PO DAILY May 21, 2022 1:00am September 26, 2024 8:44am Start: 05-21-2022 take 1 capsule by mo uth once daily Turmeric Root Extract 500 mg Capsule Active 500 mg PO DAILY May 21, 2022 1:00am Zinc Lozenges 15 mg Lozenge (9 sources) Start: 05-21-2022 End: 09-26-2024 take 15 [...] artery occlusion, unspecified with cerebral infarction] Onset: 5 02-15-2023 Chronic Acute myocardial infarction (20 sources) [...] vascular disease; Translations: [Atherosclerotic heart disease of [place] coronary artery without angina pectoris] Onset: 5 03-16-2023 Chronic Coronary atherosclerosis and other heart disease (20 sources) Stented coronary artery; Translations: [Presence of coronary angioplasty implant and graft] Onset: 3 03-16-2023 Episodic Comment on above: [place] LIZETH 3X 22 mm to mid LAD [...] of 2 x 15 mm drug-eluting stent [place] Diseases of mouth; excluding dental (20 sources) [...] Nocturia; Translations: [Nocturia] Episodic Heart valve disorders (17 sources) Aortic valve regurgitation; Translations: [Nonrheumatic aortic (valve) insufficiency] Onset: 5 10-11-2023 Chronic Mood disorders (9 sources) Depressive disorder; Translations: [Depression] 02-02-2024 Chronic Nausea and vomiting (1 source) Intractable nausea and vomiting; Translations: [Nausea with vomiting, unspecified] Episodic Occlusion or stenosis of precerebral arteries (16 sources) Basilar artery stenosis; Translations: [Occlusion and stenosis of basilar artery] Onset: 5 04-04-2024 Chronic Other circulatory disease (15 sources) Disorder of carotid artery; Translations: [Disorder of arteries and arterioles, unspecified] 08-24-2024 Chronic Other circulatory disease (1 source) Disorder of arteries and arterioles, unspecified; Translations: [Disorder of arteries and arterioles, unspecified] Onset: Chronic Other circulatory disease (6 sources) History of cerebrovascular accident; Translations: [Personal history of transient ischemic attack (TIA), and cerebral infarction without residual deficits] 11-23-2024 Episodic Other connective tissue disease (6 sources) Weakness of right facial muscle; Translations: [Facial weakness] 11-23-2024 Episodic Other gastrointestinal disorders (16 sources) Constipation; Translations: [Constipation, unspecified] 09-27-2024 Episodic Other gastrointestinal disorders (12 sources) Altered bowel function; Translations: [Change in bowel habit] 10-18-2024 Episodic Other hereditary and degenerative nervous system conditions (15 sources) Impaired cognition; Translations: [Mild cognitive impairment, [...] sites, without mention of infection] Episodic Other nervous system disorders (20 sources) [...] palsy] 12-01-2017 Episodic Other nervous system disorders (6 sources) Facial paresthesia; Translations: [Paresthesia of skin] 11-23-2024 Episodic Other nervous system disorders (2 sources) Paresthesia of skin; Translations: [Paresthesia of skin] Onset: 5 Episodic Other screening for suspected conditions (not mental disorders or infectious disease) (1 source) Encounter for screening mammogram for malignant neoplasm of breast; Translations: [Encounter for screening mammogram for malignant neoplasm of breast] Onset: 5 Episodic Prolapse of female genital organs (20 sources) Incomplete uterovaginal prolapse; Translations: [Incomplete uterovaginal prolapse] Chronic Residual codes; unclassified (2 sources) Acquired absence of both cervix and uterus; Translations: [Acquired absence of both cervix and uterus] 05-29-2022 Episodic Thyroid disorders (20 sources) Hypothyroidism; Translations: [Hypothyroidism, unspecified] 12-01-2017 Chronic Past or Other Problems Problem Classification Problem Date Documented Da te Episodic/Chronic Other aftercare (1 source) Encounter for therapeutic drug level monitoring; Translations: [Encounter for therapeutic drug level monitoring] Onset: 06-09-2024 Episodic Other gastrointestinal disorders (1 source) Change in bowel habit; Translations: [Change in bowel habit] Onset: 10-19-2024 Episodic Other gastrointestinal disorders (1 source) Constipation, unspecified; Translations: [Constipation, unspecified] Onset: 10-02-2024 Episodic Other liver diseases (1 source) Abnormal levels of other serum enzymes; Translations: [Abnormal levels of other serum enzymes] Onset: 11-17-2024 Episodic Results Test Name Value Interpretation Reference Range Facility Cardiology Visit Reporton Cardiology Visit Report [facility] [address] [place] [address] OFFICE VISIT Date of Service: 03/07/25 MR#: [id number] Acct: [id number] Name: LILLIANA HUBER Rep #: [id number] : 1945 Provider: Dr. Bella Irving MD Age/Sex: 79/F Location: [facility] Status: Signed HPI HPI History of Present Illness Details: This lady with history of coronary artery disease status post percutaneous intervention with drug- eluting stents to the LAD and left circumflex obtuse marginal branch is here for follow-up visit. Denies any complaints. No chest pains. No shortness of breath. No palpitations. No orthopnea PND. No ankle edema. Intake Vital Signs 11/23/24 18:15 03/07/25 14:04 Height 5 ft 2 in 5 ft 2 in Weight: 175 lb BMI 32.0 BP 117/70 Blood Pressure Location Lt brachial Position Sitting Respiration 16 Pulse 71 Pulse Source Monitor Intake Visit Reasons: 6 M FU [place] Stitcher Required: No Accompanied by: Self Is patient in pain?: No Allergies Sulfa (Sulfonamide Antibiotics) Allergy (Intermediate, Verified 03/07/25 14:05) Rash pepper (genus Capsicum) Allergy (Verified 03/07/25 14:05) Swelling adhesive tape Adverse Reaction (Intermediate, Verified 03/07/25 14:05) Rash Penicillins Adverse Reaction (Unknown, Verified 03/07/25 14:05) Rash Medications ???Medication ???Instructions ???Recorded ???Confirmed ???Type ascorbic acid (vitamin C) 500 mg 500 mg PO DAILY 05/21/22 03/07/25 History tablet (Vitamin C) cholecalciferol (vitamin D3) 125 125 mcg PO DAILY 05/21/22 03/07/25 History mcg (5,000 unit) tablet (Vitamin D3) aspirin 81 mg tablet,delayed 81 mg PO DAILY@0800 #90 tabs 03/1303/07/25 Rx release Handicap Placard #1 ea 04/23/23 11/23/24 Rx lisinopril 20 mg tablet 20 mg PO DAILY #90 tabs 10/11/23 1 05/07/24 Rx atorvastatin 40 mg tablet 40 mg PO QDAY #90 tabs 04/25/24 Rx atenolol 25 mg tablet 25 mg PO DAILY #90 tabs 08/07/24 1 05/07/24 Rx amlodipine 10 mg tablet 10 mg PO QDAY #90 tabs 08/24/24 Rx lysine 1,000 mg tablet 500 mg PO DAILY 09/26/24 03/07/25 History zinc lozenges 15 mg 50 mg PO DAILY 09/26/24 03/07/25 H istory clopidogrel 75 mg tablet 75 mg PO DAILY #90 TABLETS 5 03/07/25 Rx levothyroxine 150 mcg tablet mcg PO 03/07/25 03/07/25 History Medication Reconciliation completed?: Yes Ejection fraction %: 55 Have you fallen in the past year?: No PFSH Medical History History of stroke Coronary artery disease Hypertension Dyslipidemia Mild cognitive [...] at home: Yes additional social history: - [place] ROS Const Const: Negative for fatigue or weakness Eyes Eyes: Negative for change in vision ENT ENT: Negative for dizziness or balance problems Cardio Chest Pain: No Palpitations: No Edema: None Resp Respiratory: Negative for SOB with activity, SOB at rest or SOB orthopnea SOB lying down GI GI: Negative nausea or heartburn Musc Musc: Negative for balance problems Neuro Neuro: Negative for dizziness, lightheadedness, near syncope, syncope or weakness Endo Endo: Negative for fatigue Cardiology Exam Const Appearance: comfortable and no acute distress Nutritional Appearance: well nourished Neck Neck: no JVD Carotids: Negative bruit Chest Auscultation: Bilateral: Clear to Auscultation Cardio Rate: regular rate Rhythm: regular rhythm (more content not included)... Normal [facility] Thyroglobulin w/Anti-TG ABon 03-02-2025 Anti-TG AB < 1.0 Normal 0.0-0.9 [facility] Comment on above: Result Comment: Thyr oglobulin Antibody measured by Toña Gabbie Methodology It should be noted that the presence of thyroglobulin antibodies may not be pathogenic nor diagnostic, especially at very low levels. The assay cut off sawyer log has found that four percent of individuals without evidence of thyroid disease or autoimmunity will have positive TgAb levels up to 4 IU/mL. Performed By: #### L 3410.9992, L3300.6820, L500.9220 #### [facility] [address] [facility] [place], [address] THYROGLOB QUANT < 0.1 Low 1.5-38.5 [facility] Comment on above: Result Comment: Acco [...] is 0.1 ng/mL Thyroglobulin measured by Toña Mather Immunometric Assay Performed at: [employer] [id number] Vocational Training Director: Yunier Newton PhD, Phone: [phone] Performed By: #### L 3410.9992, L3300.6820, L535.9520 #### [facility] [address] [place], [address] Comprehensive Metabolic Prof ilon 02-27-2025 Albumin [Mass/Vol] 3.9 g/dL Normal 3.4-4.8 [facility] Comment on above: Performed By: #### L 3410.9992, L3300.6820, L501.9520 #### [facility] [address] [place], [address] Albumin/Globulin [Mass ratio] 1.7 {ratio} Normal 0.9-2.4 [facility] Comment on above: Performed By: #### L 3410.9992, L3300.6820, L501.9520 #### [facility] [address] [place], [address] ALK PHOS 87 U/L Normal 35-104 [facility] Comment on above: Performed By: #### L 3410.9992, L3300.6820, L501.9520 #### [facility] [address] [place], [address] ALT [Catalytic activity/Vol] 17 U/L Normal <=34 [facility] Comment on above: Performed By: #### L 3410.9992, L3300.6820, L501.9520 #### [facility] [address] [place], [address] AST [Catalytic activity/Vol] 18 U/L Normal <=31 [facility] Comment on above: Performed By: #### L 3410.9992, L3300.6820, L501.9520 #### [facility] [address] [place], [address] Bilirubin [Mass/Vol] 0.53 mg/dL Normal 0.00-1.30 [facility] Comment on above: Performed By: #### L 3410.9992, L3300.6820, L501.9520 #### [facility] [address] [place], [address] BUN/CRE 17.1 RATIO Normal 10-20 [facility] Comment on above: Performed By: #### L 3410.9992, L3300.6820, L501.9520 #### [facility] [address] [place], [address] Calcium [Mass/Vol] 8.8 mg/dL Normal 7.6-11.0 [facility] Comment on above: Performed By: #### L 3410.9992, L3300.6820, L501.9520 #### [facility] [address] [place], [address] Chloride [Moles/Vol] 107 mmol/L Normal 98-108 [facility] Comment on above: Performed By: #### L 3410.9992, L3300.6820, L501.9520 #### [facility] [address] [place], [address] CO2 [Moles/Vol] 22.8 mmol/L Normal 21.0-32.0 [facility] Comment on above: Performed By: #### L 3410.9992, L3300.6820, L501.9520 #### [facility] [address] [place], [address] Creatinine [Mass/Vol] 1.08 mg/dL Normal 0.70-1.20 [facility] Comment on above: Performed By: #### L 3410.9992, L3300.6820, L501.9520 #### [facility] [address] [place], [address] GAP 10 Normal 5-15 [facility] Comment on above: Performed By: #### L 3410.9992, L3300.6820, L501.9520 #### [facility] [address] [place], [address] GFR/1.73 sq M.predicted among non-blacks MDRD (S/P/Bld) [Vol rate/Area] 52 mL/min/{1.73_m2} Low >60 [facility] Comment on above: Result Comment: mL/m in/1.73m2 CKD-EPI Creatinine Equation (2020) Performed By: #### L 3410.9992, L3300.6820, L501.9520 #### [facility] [address] [place], [address] Globulin (S) [Mass/Vol] 2.4 g/dL Normal 2.2-4.2 [facility] Comment on above: Performed By: #### L 3410.9992, L3300.6820, L501.9520 #### [facility] [address] [place], [address] Glucose [Mass/Vol] 97 mg/dL Normal 70-99 [facility] Comment on above: Performed By: #### L 3410.9992, L3300.6820, L501.9520 #### [facility] [address] [place], [address] Potassium [Moles/Vol] 4.2 mmol/L Normal 3.3-5.1 [facility] Comment on above: Performed By: #### L 3410.9992, L3300.6820, L501.9520 #### [facility] [address] [place], [address] Sodium [Moles/Vol] 140 mmol/L Normal 133-145 [facility] Comment on above: Performed By: #### L 3410.9992, L3300.6820, L501.9520 #### [facility] [address] [place], [address] T PROT 6.3 g/dL Normal 5.9-8.4 [facility] Comment on above: Performed By: #### L 3410.9992, L3300.6820, L501.9520 #### [facility] [address] [place], [address] Urea nitrogen [Mass/Vol] 19 mg/dL Normal 4-19 [facility] Comment on above: Performed By: #### L 3410.9992, L3300.6820, L501.9520 #### [facility] [address] [place], [address] Thyroid Stim Hormone (TSH)on 02-27-2025 TSH 2.870 uIU/mL Normal 0.300-4.200 [facility] Comment on above: Performed By: #### L 3410.9992, L3300.6820, L501.9520 #### [facility] [address] [place], [address] SCRN MAMM (CAD)W/NICA BILATo n 01-19-2025 SCRN MAMM (CAD)W/NICA BILAT [facility] Imaging Services [address] [place], [place] [id number] SCRN MAMM (CAD)W/NICA BILAT MR#: [id number] Acct: [id number] Name: LILLIANA HUBER Rep #: [id number] : 1945 F 79 From: Neena Desai i, MD PCP: Dr. Elis Cardenas DO Status: [facility] CLI Study: SCRN MAMM (CAD)W/NICA BILAT Date of Exam: 12/26 10/18 Exam# [id number] Ordering Dr: Elis Cardenas DO EXAM: SCRN MAMM (CAD)W/NICA BILAT DATE: 01/19/2025 CLINICAL HISTORY: F, Age 79 y/o , SCREENING TECHNIQUE: Procedure Code: BISMWCADBTOM Modality: MG Procedure: SCRN MAMM (CAD)W/NICA BILAT COMPARISON: Prior exam(s) were compared. FINDINGS: TISSUE DENSITY: The breasts are heterogeneously dense, which may obscure small masses. Bilateral Breast Mammographic Findings: No suspicious masses, calcifications or other abnormalities are identified. BI/SCRN MAMM (CAD)W/NICA BILAT IMPRESSION: No mammographic evidence of malignancy in either breast OVERALL FINAL ASSESSMENT BI-RADS 1: NEGATIVE. RECOMMENDATION: Routine annual follow-up in 1 Year Additional Recommendation none A letter with findings and recommendations will be mailed to the patient. Reading Location: [id number] CC: Dr. Elis Cardenas, Coil Connector Repairer: Signed Normal [facility] Thyroglobulin w/Anti-TG ABon 01-01-2025 Anti-TG AB < 1.0 Normal 0.0-0.9 [facility] Comment on above: Result Comment: Thyr oglobulin Antibody measured by Toña Mather Methodology It should be noted that the presence of thyroglobulin antibodies may not be pathogenic nor diagnostic, especially at very low levels. The assay cut off sawyer log has found that four percent of individuals without evidence of thyroid disease or autoimmunity will have positive TgAb levels up to 4 IU/mL. Performed By: #### L 3410.9992, L3300.6820, L501.9520 #### [facility] [address] [facility] [place], [address] THYROGLOB QUANT < 0.1 Low 1.5-38.5 [facility] Comment on above: Result Comment: Acco [...] is 0.1 ng/mL Thyroglobulin measured by Toña Mather Immunometric Assay Performed at: [facility] [employer] [id number] Vocational Training Director: Yunier Newton PhD, Phone: [phone] Performed By: #### L 3410.9992, L3300.6820, L5019520 #### [facility] [address] [facility] [place], [address] TSH DL <= 0.005 mIU/L QnOrde red By: EASTON SPENCER on 12-29-2024 TSH Qn 5.250 uIU/mL High 0.300-4.200 [facility] Thyroid Stim Hormone (TSH)on 12-29-2024 TSH 5.250 uIU/mL High 0.300-4.200 [facility] Comment on above: Performed By: #### L 3410.9992, L3300.6820, L501.9520 #### [facility] [address] [place], [address] Anion gap in Serum or Plasma Ordered By: Tad Trimble on 11-24-2024 Anion gap [Moles/Vol] 14 mmol/L 5- [facility] BUN/creatinine ratioOrdered By: Tad Trimble on 11-24-2024 Urea nitrogen/Creatinine [Mass ratio] 24.1 mg/mg High 02-12 [facility] Basic Metabolic Profile (BMP )on 11-24-2024 BUN/CRE 24.1 RATIO High 02-12 [facility] Comment on above: Order Comment: Comme nts: NPO at [place] prior to lipid panel Performed By: #### L 100.0500, L500.4100, L500.2500 ####[facility] [address] [place], [address] Calcium [Mass/Vol] 9.1 mg/dL Normal 7.6-11.0 [facility] Comment on above: Order Comment: Comme nts: NPO at MN prior to lipid panel Performed By: #### L 100.0500, L500.4100, L500.2500 ####[facility] [address] [place], [address] Chloride [Moles/Vol] 104 mmol/L Normal 98-108 [facility] Comment on above: Order Comment: Comme nts: NPO at MN prior to lipid panel Performed By: #### L 100.0500, L500.4100, L500.2500 ####[facility] [address] [place], [address] CO2 [Moles/Vol] 20.0 mmol/L Low 21.0-32.0 [facility] Comment on above: Order Comment: Comme nts: NPO at MN prior to lipid panel Performed By: #### L 100.0500, L500.4100, L500.2500 ####[facility] [address] [place], [address] Creatinine [Mass/Vol] 0.78 mg/dL Normal 0.70-1.20 [facility] Comment on above: Order Comment: Comme nts: NPO at MN prior to lipid panel Performed By: #### L 100.0500, L500.4100, L500.2500 ####[facility] [address] [place], [address] ECRCL 55.18 ml/min Normal 50-250 [facility] Comment on above: Order Comment: Comme nts: NPO at MN prior to lipid panel Performed By: #### L 100.0500, L500.4100, L500.2500 ####[facility] [address] [place], [address] GAP 14 Normal 5-15 [facility] Comment on above: Order Comment: Comme nts: NPO at MN prior to lipid panel Performed By: #### L 100.0500, L500.4100, L500.2500 ####[facility] [address] [place], [address] GFR/1.73 sq M.predicted among non-blacks MDRD (S/P/Bld) [Vol rate/Area] 76 mL/min/{1.73_m2} Normal >60 [facility] Comment on above: Order Comment: Comme nts: NPO at MN prior to lipid panel Result Comment: mL/m in/1.73m2 CKD-EPI Creatinine Equation (2020) Performed By: #### L 100.0500, L500.4100, L500.2500 ####[facility] [address] [place], [address] Glucose [Mass/Vol] 94 mg/dL Normal 70-99 [facility] Comment on above: Order Comment: Comme nts: NPO at MN prior to lipid panel Performed By: #### L 100.0500, L500.4100, L500.2500 ####[facility] [address] [place], [address] Potassium [Moles/Vol] 4.1 mmol/L Normal 3.3-5.1 [facility] Comment on above: Order Comment: Comme nts: NPO at MN prior to lipid panel Performed By: #### L 100.0500, L500.4100, L500.2500 ####[facility] [address] [place], [address] Sodium [Moles/Vol] 138 mmol/L Normal 133-145 [facility] Comment on above: Order Comment: Comme nts: NPO at MN prior to lipid panel Performed By: #### L 100.0500, L500.4100, L500.2500 ####[facility] [address] [place], [address] Urea nitrogen [Mass/Vol] 19 mg/dL Normal 4-19 [facility] Comment on above: Order Comment: Comme nts: NPO at MN prior to lipid panel Performed By: #### L 100.0500, L500.4100, L500.2500 ####[facility] [address] [place], [address] Brain without Contraston Brain without Contrast [facility] Imaging Services [address] [place] [address] Brain without Contrast MR#: [id number] Acct: [id number] Name: LILLIANA HUBER Rep #: [id number] : 1945 F 79 From: Alfonso Tim PCP: Dr. Elis Cardenas DO Status: ADM LINA Study: Brain without Contrast Date of Exam: 11/24/24 Exam# [id number] Ordering Dr: Tad Trimble DO PROCEDURE: BRAIN [...] 3. Mild generalized cerebral atrophy. Reading Location: [place] [address] CC: Dr. Tad Trimble, DO; Dr. Elis Cardenas DO Coil Connector Repairer: Signed Normal [facility] CBC-Complete Blood Cnt No Di ffon 11-24-2024 Erythrocyte distribution width (RBC) [Ratio] 13.2 % Normal 11.6-14.6 [facility] Comment on above: Performed By: #### L 100.0500, L500.4100, L500.2500 ####[facility] [address] [place], [address] Hematocrit (Bld) [Volume fraction] 37.4 % Normal 37-47 [facility] Comment on above: Performed By: #### L 100.0500, L500.4100, L500.2500 ####[facility] [address] [place], [address] Hemoglobin (Bld) [Mass/Vol] 12.6 g/dL Normal 12.0-15.0 [facility] Comment on above: Performed By: #### L 100.0500, L500.4100, L500.2500 ####[facility] [address] [place], [address] MCH (RBC) [Entitic mass] 30.8 pg Normal 27.0-32.0 [facility] Comment on above: Performed By: #### L 100.0500, L500.4100, L500.2500 ####[facility] [address] [place], [address] MCHC (RBC) [Mass/Vol] 33.7 g/dL Normal 32-36 [facility] Comment on above: Performed By: #### L 100.0500, L500.4100, L500.2500 ####[facility] [address] [place], [address] MCV (RBC) [Entitic vol] 91.4 fL Normal 81-99 [facility] Comment on above: Performed By: #### L 100.0500, L500.4100, L500.2500 ####[facility] [address] [place], [address] Platelet mean volume (Bld) [Entitic vol] 9.3 fL Normal 6.2-12.0 [facility] Comment on above: Performed By: #### L 100.0500, L500.4100, L500.2500 ####[facility] [address] [place], [address] Platelets (Bld) [#/Vol] 195 10*3/uL Normal 150-450 [facility] Comment on above: Performed By: #### L 100.0500, L500.4100, L500.2500 ####[facility] [address] [place], [address] RBC (Bld) [#/Vol] 4.09 10*6/uL Low 4.2-5.4 [facility] Comment on above: Performed By: #### L 100.0500, L500.4100, L500.2500 ####[facility] [address] [place], [address] RDW SD 44.3 fl High 35.1-43.9 [facility] Comment on above: Performed By: #### L 100.0500, L500.4100, L500.2500 ####[facility] [address] [place], [address] WBC (Bld) [#/Vol] 4.6 10*3/uL Normal 4.4-11.0 [facility] Comment on above: Performed By: #### L 100.0500, L500.4100, L500.2500 ####[facility] [address] [place], [address] Calculated very low density lipoprotein (VLDL) cholesterol measurementOrdered By: Tad Trimble on 11-24-2024 Calculated very low density lipoprotein (VLDL) cholesterol measurement 45 mg/dL High 5-40 [facility] Carbon dioxide, total [Moles /volume] in Central venous bloodOrdered By: Tad Trimble on 11-24-2024 CO2 [Moles/Vol] 20.0 mmol/L Low 21.0-32.0 [facility] Chloride assayOrdered By: Haim Trimble on 11-24-2024 Chloride [Moles/Vol] 104 mmol/L 98-108 [facility] Echo Completeon 11-24-2024 Echo Complete [facility] [address] [place] [address] Echo Complete 11/24/24 1252 MR#: [id number] Acct: [id number] Name: LILLIANA HUBER Rep #: [id number] : 1945 79 From: Lydia Guevara MD Attending Dr: Dr. Lynne Tabares DO Status: DIS I NO Ordering Dr: Lynne Tabares DO Date: 11/24/24 Location: U Sex: F C Admitted: 11/23/24 Reason For [...] Referring Physician: Elis Cardenas Performed By: Rosanne Hays RDCS, RVT 02/15/25 1127 Date Lydia Guevara MD CC: Dr. Lynne Tabares DO; Dr. Elis Cardenas DO Date Dictated: 11/24/24 1252 Date Transcribed: 11/24/24 1241 Coil Connector Repairer: Signed Normal [facility] Echocardiogram study reportO rdered By: Chet Hadley on 11-24-2024 Study report [facility] Cardi[facility] Services [address] [place] [address] Echo Complete 11/24/24 1002 MR#: [id number] Acct: [id number] Name: LILLIANA HUBER Rep #:[id number] : 1945 79 From: Chet jang MD Attending Dr: Dr. Lynne Tabares DO S tatus: ADM LINA Ordering Dr: Lynne Tabares DO Date: 05/20 Location: [facility] Sex: F C Admitted: 11/23/24 Reason [...] Cardenas Performed By: Rosanne Hays, RDCS, RVT 11/24/24 1241 Date _ Chet Hadley MD CC: Dr. Lynne Tabares DO; Dr. Elis Cardenas DO ~ Date Dictated: 11/24/24 1002 Date Transcribed: 11/24/24 124 Coil Connector Repairer: Signed [facility] Other Erythrocyte distribution wid th ratioOrdered By: Tad Trimble on 11-24-2024 Erythrocyte distribution width (RBC) [Ratio] 13.2 % 11.6-14.6 [facility] Erythrocyte distribution wid th standard deviationOrdered By: Tad Trimble on 11-24-2024 Erythrocyte distribution width (RBC) [Ratio] 44.3 fl High 35.1-43.9 [facility] Glomerular filtration rate ( GFR) estimation/1.73 sq m using serum, plasma, or whole bOrdered By: Tad Trimble on 11-24-2024 GFR/1.73 sq M.predicted among non-blacks MDRD (S/P/Bld) [Vol rate/Area] 76 mL/min/{1.73_m2} >60 [facility] Comment on above: mL/min/1.73m2 CKD-EP I Creatinine Equation (2020) Hematocrit Auto (Bld) [Volum e fraction]Ordered By: Tad Trimble on 11-24-2024 Hematocrit (Bld) [Volume fraction] 37.4 % 37-47 [facility] Hemoglobin measurementOrdere d By: Tad Trimble on 11-24-2024 Hemoglobin (Bld) [Mass/Vol] 12.6 g/dL 12.0-15.0 [facility] LDL calc ser/plasOrdered By: Tad Trimble on 11-24-2024 Cholesterol in LDL [Mass/Vol] 75 mg/dL [facility] Comment on above: Utdwgwwwsv=962-229 m g/dL & Higher Grou=627 mg/dL or greaterFriedwald Equation for LDL-C Lipid Profileon 11-24-2024 CHOL:HDL 3.50 Normal [facility] Comment on above: Order Comment: Comme nts: NPO at CT prior to lipid panel Performed By: #### L 100.0500, L500.4100, L500.2500 ####[facility] [address] [place], [address] Cholesterol [Mass/Vol] 168 mg/dL Normal <=200 [facility] Comment on above: Order Comment: Comme nts: NPO at CT prior to lipid panel Result Comment: Chol esterol level, Desirable <200 mg/dL Borderline high cholesterol 200-239 mg/dL High cholesterol >=240 mg/dL Recommendations of the NCEP Adult Treatment Panel for the following risk-cutoff thresholds for the [place] population. Performed By: #### L 100.0500, L500.4100, L500.2500 ####[facility] [address] [place], [address] Cholesterol in HDL [Mass/Vol] 48 mg/dL Normal [facility] Comment on above: Order Comment: Comme nts: NPO at CT prior to lipid panel Result Comment: Maria Del Rosario onal Cholesterol Education Program (NCEP) guidelines: <40 mg/dL: Low HDL-cholesterol (major risk factor for CHD) >= 60 mg/dL: High HDL-cholesterol (negative risk factor for CHD) HDL-cholesterol is affected by a number of factors, e.g. smoking, exercise, hormones, sex and age. Performed By: #### L 100.0500, L500.4100, L500.2500 ####[facility] [address] [place], [address] Cholesterol in LDL [Mass/Vol] 75 mg/dL Normal [facility] Comment on above: Order Comment: Comme nts: NPO at [place] prior to lipid panel Result Comment: Bord qqcvch=059-161 mg/dL Higher Vkcj=216 mg/dL or greater Friedwald Equation for LDL-C Performed By: #### L 100.0500, L500.4100, L500.2500 ####[facility] [address] [place], [address] Cholesterol in VLDL [Mass/Vol] 45 mg/dL High 5-40 [facility] Comment on above: Order Comment: Comme nts: NPO at MN prior to lipid panel Performed By: #### L 100.0500, L500.4100, L500.2500 ####[facility] [address] [place], [address] Triglyceride [Mass/Vol] 227 mg/dL High [facility] Comment on above: Order Comment: Comme nts: NPO at CT prior to lipid panel Result Comment: The drugs N-Acetylcysteine and Metamizole may falsely depress this assay. Normal range: <150 mg/dL Borderline High: 150-199 mg/dL High: 200-499 mg/dL Very High: >500 mg/dL Performed By: #### L 100.0500, L500.4100, L500.2500 ####[facility] [address] [place], [address] MCV (mean corpuscular volume ) determinationOrdered By: Tad Trimble on 11-24-2024 MCV (RBC) [Entitic vol] 91.4 fL 81-99 [facility] MR/CON.PCM.NEon 11-24-2024 MR/CON.PCM.NE [facility] Medical Records Department [address] [place] [address] Consultation - Neurology 11/24/24 1248 MR#: [id number] Acct: [id number] Name: LILLIANA HUBER Rep #: [id number] : 1945 79 From: Rachel Holman MD PCP: Dr. Elis Cardenas, DO Status:ADM LINA Location: [place] [address] Assessment and Plan: Neuro Assessment/Plan LILLIANA HUBER, is a 79 woman with history of basilar stenosis, CAD, on ASA/Plavix/Statin, who presented to [facility] ED on 11/23/2024 with transient weird [...] is a 79 F who presented to [facility] ED on 11/23/2024 with right facial [...] All extremities antigravity Coordination: FTN intact bilaterally [facility] Medical History Coronary artery disease Hypertension Dyslipidemia [...] lozenges 15 (more content not included)... Normal [facility] Magnetic resonance imaging r eportOrdered By: Alfonso Dent on 11-24-2024 Study report [facility] Imaging Services [address] [place] [address] Brain without Contrast MR#: [id number] Acct: [id number] Name: LILLIANA HUBER Rep #: [id number] : 1945 F 79 From: Michael Dent MD PCP: Dr. Elis Cardenas DO Status: ADM LINA Study:Brain without Contrast Date of Exam: 11/24/24 Exam# [id number] Ordering Dr: Tad Gregorio DO PROCEDURE: BRAIN [...] 3. Mild generalized cerebral atrophy. Reading Location: [place] [address] CC: Dr. Tad Trimble DO; Dr. Elis Cardenas DO ~ Coil Connector Repairer: Signed [facility] Mean corpuscular hemoglobin (MCH) determinationOrdered By: Tad Trimble on 11-24-2024 MCH (RBC) [Entitic mass] 30.8 pg 27.0-32.0 [facility] Mean corpuscular hemoglobin concentration (MCHC) determinationOrdered By: Tad Trimble on 11-24-2024 MCHC (RBC) [Mass/Vol] 33.7 g/dL 32-36 [facility] Mean platelet volume determi nationOrdered By: Tad Trimble on 11-24-2024 Platelet mean volume (Bld) [Entitic vol] 9.3 fL 6.2-12.0 [facility] Platelet countOrdered By: Haim Trimble on 11-24-2024 Platelets (Bld) [#/Vol] 195 10*3/uL 150-450 [facility] Potassium measurement (mass/ volume)Ordered By: Tad Trimble on 11-24-2024 Potassium (Unsp spec) [Mass/Vol] 4.1 mmol/L 3.3-5.1 [facility] RBC Auto (Bld) [#/Vol]Ordere d By: Tad Trimble on 11-24-2024 RBC (Bld) [#/Vol] 4.09 10*6/uL Low 4.2-5.4 [facility] Screening total cholesterol/ high density lipoprotein (HDL) cholesterol ratioOrdered By: Tad Trimble on 11-24-2024 Cholesterol.total/Choles terol in HDL [Mass ratio] 3.50 {ratio} [facility] Serum creatinine measurement (mass/volume)Ordered By: Tad Trimble on 11-24-2024 Creatinine [Mass/Vol] 0.78 mg/dL 0.70-1.20 [facility] Serum glucose measurement (m ass/volume)Ordered By: Tad Trimble on 11-24-2024 Glucose [Mass/Vol] 94 mg/dL 70-99 [facility] Serum or plasma calcium idris urement (mass/volume)Ordered By: Tad Trimble on 11-24-2024 Calcium [Mass/Vol] 9.1 mg/dL 7.6-11.0 [facility] Serum or plasma cholesterol in HDL measurement (mass/volume)Ordered By: Tad Trimble on 11-24-2024 Cholesterol in HDL [Mass/Vol] 48 mg/dL >40 [facility] Comment on above: National Cholesterol Education Program (NCEP) guidelines:<40 mg/dL: Low HDL-cholesterol (major risk factor for CHD)>= 60 mg/dL: High HDL-cholesterol (negative risk factor for CHD)HDL-cholesterol is affected by a number of factors, e.g. smoking, exercise, hormones, sex and age. Serum or plasma cholesterol measurement (mass/volume)Ordered By: Tad Trimble on 11-24-2024 Cholesterol [Mass/Vol] 168 mg/dL <201 [facility] Comment on above: Cholesterol level, D esirable <200 mg/dLBorderline high cholesterol 200-239 mg/dLHigh cholesterol >=240 mg/dLRecommendations of the NCEP Adult Treatment Panel for the following risk-cutoff thresholds for the [place] population. Serum or plasma urea nitroge n measurement (mass/volume)Ordered By: Tad Trimble on 11-24-2024 Urea nitrogen [Mass/Vol] 19 mg/dL 4-19 [facility] Sodium levelOrdered By: Arnulfo Trimble on 11-24-2024 Sodium [Moles/Vol] 138 mmol/L 133-145 [facility] Triglycerides measurementOrd ered By: Tad Trimble on 11-24-2024 Triglyceride [Mass/Vol] 227 mg/dL High <199 [facility] Comment on above: The drugs N-Acetylcy steine and Metamizole may falsely depress this assay. Normal range: <150 mg/dLBorderline High: 150-199 mg/dLHigh: 200-499 mg/dLVery High: >500 mg/dL White blood cell (WBC) count Ordered By: Tad Trimble on 11-24-2024 WBC (Bld) [#/Vol] 4.6 10*3/uL 4.4-11.0 [facility] 12 Lead EKGon 11-23-2024 12 Lead EKG [facility] Cardiovascular Services [address] [place] [address] 12 Lead EKG 11/23/24 1615 MR#: [id number] Acct: [id number] Name: LILLIANA HUBER Rep #: [id number] : 1945 79 From: Joseph Valdivia MD Attending Dr: Dr. Lynne Tabares, DO Status: DIS I NO Ordering Dr: Arnulfo Perrin MD Date: 11/23/24 Location: [facility] Sex: F C Admitted: 11/23/24 Test [...] T wave abnormality Abnormal ECG Confirmed by JOSEPH VALDIVIA MD ([id number]), metropolitan editor FRANK FU ([id number]) on 11/27/2024 8:22:49 AM Referred By: Confirmed By: JOSEPH VALDIVIA MD 11/27/24821 Date Joseph Valdivia MD CC: Dr. Arnulfo Perrin MD; Dr. Lynne Tabares DO; Dr. Elis Cardenas DO Signed Normal [facility] Absolute lymphocyte countOrd ered By: Arnulfo Perrin on 11-23-2024 Lymphocytes Auto (Unsp spec) [#/Vol] 1.33 10*3/uL 0.83-4.51 [facility] Absolute neutrophil countOrd ered By: Arnulfo Perrin on 11-23-2024 Neutrophils (Bld) [#/Vol] 2.9 10*3/uL 2.0-7.7 [facility] Activated partial thrombopla stin time (aPTT) in platelet poor plasma by coagulation aOrdered By: Arnulfo Perrin on 11-23-2024 aPTT Coag (PPP) [Time] 29.0 s 24.1-36.2 [facility] Anion gap in Serum or Plasma Ordered By: Arnulfo Perrin on 11-23-2024 Anion gap [Moles/Vol] 8 mmol/L 5-15 [facility] Automated lymphocyte count a s percentage of total leukocytesOrdered By: Arnulfo Perrin on 11-23-2024 Lymphocytes/100 WBC Auto (Unsp spec) 26.5 % -41 [facility] BUN/creatinine ratioOrdered By: Arnulfo Perrin on 11-23-2024 Urea nitrogen/Creatinine [Mass ratio] 22.2 mg/mg High - [facility] Basic Metabolic Profile (BMP )on 11-23-2024 BUN/CRE 22.2 RATIO High 10-20 [facility] Comment on above: Performed By: #### L 501.9985, L506.0400, L501.9520 #### [facility] [address] [place], [address] Calcium [Mass/Vol] 8.3 mg/dL Normal 7.6-11.0 [facility] Comment on above: Performed By: #### L 501.9985, L506.0400, L501.9520 #### [facility] [address] [place], [address] Chloride [Moles/Vol] 106 mmol/L Normal 98-108 [facility] Comment on above: Performed By: #### L 501.9985, L506.0400, L501.9520 #### [facility] [address] [place], [address] CO2 [Moles/Vol] 21.7 mmol/L Normal 21.0-32.0 [facility] Comment on above: Performed By: #### L 501.9985, L506.0400, L501.9520 #### [facility] [address] [place], [address] Creatinine [Mass/Vol] 0.75 mg/dL Normal 0.70-1.20 [facility] Comment on above: Performed By: #### L 501.9985, L506.0400, L501.9520 #### [facility] [address] [place], [address] ECRCL 57.03 ml/min Normal 50-250 [facility] Comment on above: Performed By: #### L 501.9985, L506.0400, L501.9520 #### [facility] [address] [place], [address] GAP 8 Normal 5-15 [facility] Comment on above: Performed By: #### L 501.9985, L506.0400, L501.9520 #### [facility] [address] [place], [address] GFR/1.73 sq M.predicted among non-blacks MDRD (S/P/Bld) [Vol rate/Area] 80 mL/min/{1.73_m2} Normal >60 [facility] Comment on above: Result Comment: mL/m in/1.73m2 CKD-EPI Creatinine Equation (2020) Performed By: #### L 501.9985, L506.0400, L501.9520 #### [facility] [address] [place], [address] Glucose [Mass/Vol] 95 mg/dL Normal 70-99 [facility] Comment on above: Performed By: #### L 501.9985, L506.0400, L501.9520 #### [facility] [address] [place], [address] Potassium [Moles/Vol] 4.2 mmol/L Normal 3.3-5.1 [facility] Comment on above: Performed By: #### L 501.9985, L506.0400, L501.9520 #### [facility] [address] [place], [address] Sodium [Moles/Vol] 136 mmol/L Normal 133-145 [facility] Comment on above: Performed By: #### L 501.9985, L506.0400, L501.9520 #### [facility] [address] [place], [address] Urea nitrogen [Mass/Vol] 17 mg/dL Normal 4-19 [facility] Comment on above: Performed By: #### L 501.9985, L506.0400, L501.9520 #### [facility] [address] [place], [address] Basophil percentageOrdered B y: Arnulfo Perrin on 11-23-2024 Basophils/100 WBC (Bld) 1.0 % 0-1 [facility] Bedside Glucoseon 11-23-2024 FINGERSTICK GLU 98 mg/dL Normal 74-106 [facility] Comment on above: Result Comment: JAYLIN PEREZ OF PATIENT CARE PER NURSING PROTOCOL Performed By: #### L 501.080 #### [facility] [address] [place], [address] CBC W/Diff, Automatedon 10-26 Absolute Lymph 1.33 X10 3/uL Normal 0.83-4.51 [facility] Comment on above: Performed By: #### L 501.9985, L506.0400, L501.9520 #### [facility] [address] [place], [address] Absolute Neut 2.9 X10 3/uL Normal 2.0-7.7 [facility] Comment on above: Performed By: #### L 501.9985, L506.0400, L501.9520 #### [facility] [address] [place], [address] Basophils/100 WBC (Bld) 1.0 % Normal 0-1 [facility] Comment on above: Performed By: #### L 501.9985, L506.0400, L501.9520 #### [facility] [address] [place], [address] Eosinophils/100 WBC (Bld) 3.6 % Normal 0-5 [facility] Comment on above: Performed By: #### L 501.9985, L506.0400, L501.9520 #### [facility] [address] [place], [address] Erythrocyte distribution width (RBC) [Ratio] 13.0 % Normal 11.6-14.6 [facility] Comment on above: Performed By: #### L 501.9985, L506.0400, L501.9520 #### [facility] [address] [place], [address] Hematocrit (Bld) [Volume fraction] 34.6 % Low 37-47 [facility] Comment on above: Performed By: #### L 501.9985, L506.0400, L501.9520 #### [facility] [address] [place], [address] Hemoglobin (Bld) [Mass/Vol] 11.8 g/dL Low 12.0-15.0 [facility] Comment on above: Performed By: #### L 501.9985, L506.0400, L501.9520 #### [facility] [address] [place], [address] IG% 0.800 Normal 0.0-0.9 [facility] Comment on above: Result Comment: IG% - Immature Granulocytes (promyelocytes, myelocytes and metamyelocytes) > 1% indicates that a LEFT SHIFT is Present. Performed By: #### L 501.9985, L506.0400, L501.9520 #### [facility] [address] [place], [address] Lymphocytes/100 WBC (Bld) 26.5 % Normal 19-41 [facility] Comment on above: Performed By: #### L 501.9985, L506.0400, L501.9520 #### [facility] [address] [place], [address] MCH (RBC) [Entitic mass] 31.1 pg Normal 27.0-32.0 [facility] Comment on above: Performed By: #### L 501.9985, L506.0400, L501.9520 #### [facility] [address] [place], [address] MCHC (RBC) [Mass/Vol] 34.1 g/dL Normal 32-36 [facility] Comment on above: Performed By: #### L 501.9985, L506.0400, L501.9520 #### [facility] [address] [place], [address] MCV (RBC) [Entitic vol] 91.1 fL Normal 81-99 [facility] Comment on above: Performed By: #### L 501.9985, L506.0400, L501.9520 #### [facility] [address] [place], [address] Monocytes/100 WBC (Bld) 11.0 % High 0-10 [facility] Comment on above: Performed By: #### L 501.9985, L506.0400, L501.9520 #### [facility] [address] [place], [address] Neutrophils/100 WBC (Bld) 57.1 % Normal 47-70 [facility] Comment on above: Performed By: #### L 501.9985, L506.0400, L501.9520 #### [facility] [address] [place], [address] Nucleated RBC (Bld) [#/Vol] 0 10*3/uL Normal 0-5 [facility] Comment on above: Performed By: #### L 501.9985, L506.0400, L501.9520 #### [facility] [address] [place], [address] Platelet mean volume (Bld) [Entitic vol] 9.1 fL Normal 6.2-12.0 [facility] Comment on above: Performed By: #### L 501.9985, L506.0400, L501.9520 #### [facility] [address] [place], [address] Platelets (Bld) [#/Vol] 179 10*3/uL Normal 150-450 [facility] Comment on above: Performed By: #### L 501.9985, L506.0400, L501.9520 #### [facility] [address] [place], [address] RBC (Bld) [#/Vol] 3.80 10*6/uL Low 4.2-5.4 [facility] Comment on above: Performed By: #### L 501.9985, L506.0400, L501.9520 #### [facility] [address] [place], [address] RDW SD 42.8 fl Normal 35.1-43.9 [facility] Comment on above: Performed By: #### L 501.9985, L506.0400, L501.9520 #### [facility] [address] [place], [address] WBC (Bld) [#/Vol] 5.0 10*3/uL Normal 4.4-11.0 [facility] Comment on above: Performed By: #### L 501.9985, L506.0400, L501.9520 #### [facility] [address] [place], [address] Carbon dioxide, total [Moles /volume] in Central venous bloodOrdered By: Arnulfo Perrin on 11-23-2024 CO2 [Moles/Vol] 21.7 mmol/L 21.0-32.0 [facility] Chloride assayOrdered By: Haim Perrin on 11-23-2024 Chloride [Moles/Vol] 106 mmol/L 98-108 [facility] Emergency Department Summary on 11-23-2024 Emergency Department Summary [facility] Medical Records Department [address] [place] [address] Emergency Department Summary 11/23/24 MR#: [id number] Acct: [id number] Name: LILLIANA HUBER Rep #: [id number] : 1945 79 From: Arnulfo Perrin MD [...] or Xarelto. No exacerbating or alleviating factors. [facility] Medical History Coronary artery disease Hypertension [...] at home: Yes additional social history: - [place] ROS ROS ED ROS Narrative Review of [...] F Tem (more content not included)... Normal [facility] Eosinophil percentageOrdered By: Arnulfo Perrin on 11-23-2024 Eosinophils/100 WBC (Bld) 3.6 % 0-5 [facility] Erythrocyte distribution wid th ratioOrdered By: Arnulfo Perrin on 11-23-2024 Erythrocyte distribution width (RBC) [Ratio] 13.0 % 11.6-14.6 [facility] Erythrocyte distribution wid th standard deviationOrdered By: Arnulfo Perrin on 11-23-2024 Erythrocyte distribution width (RBC) [Ratio] 42.8 fl 35.1-43.9 [facility] Glomerular filtration rate ( GFR) estimation/1.73 sq m using serum, plasma, or whole bOrdered By: Arnulfo Perrin on 11-23-2024 GFR/1.73 sq M.predicted among non-blacks MDRD (S/P/Bld) [Vol rate/Area] 80 mL/min/{1.73_m2} >60 [facility] Comment on above: mL/min/1.73m2 CKD-EP I Creatinine Equation (2020) [facility] deOrdered By: Arnulfo Perrin on 11-23-2024 Glucose [Mass/Vol] 98 mg/dL 74-106 [facility] Comment on above: MANAGEMENT OF PATIEN T CARE PER NURSING PROTOCOL H AND P Exam - Hospitaliston 11-23-2024 H&P Exam - Hospitalist [facility] Medical Records Department [address] [place] [address] H P Exam - Hospitalist 11/23/24 1716 MR#: [id number] Acct: [id number] Name: LILLIANA HUBER RAYSHAWN Rep #: [id number] : 1945 79 From: Tad Trimble DO PCP: Dr. Elis Cardenas, DO Status:ADM LINA Location: [place] [address] HPI - General General Date of Admission: 11/23/24 Date of Service: 11/23/24 Chief Complaint: Right facial numbness/tingling HPI Narrative LILLIANAAAKASH HUBER, is a 79 F who presented to [facility] ED on 11/23/2024 with right facial [...] be admitted for further management. [facility] Medical History Coronary artery disease Hypertension Dyslipidemia [...] DAILY@0800 #90 tabs 03/1305/12/23 Rx release Handicap Mamtaard #1 ea 04/23/23 [...] substance use (more content not included)... Normal [facility] Hematocrit Auto (Bld) [Volum e fraction]Ordered By: Arnulfo Perrin on 11-23-2024 Hematocrit (Bld) [Volume fraction] 34.6 % Low 37-47 [facility] Hemoglobin A1con 11-23-2024 HbA1c (Bld) [Mass fraction] 5.6 % Normal <=5.6 [facility] Comment on above: Result Comment: Norm al < 5.7 % Prediabetic 5.7 - 6.4 % Diabetic >or= 6.5 % Please note range changes. Performed By: #### L 501.9985, L506.0400, L501.9520 #### [facility] [address] [place], [place], [address] Hemoglobin A1c percentageOrd ered By: Tad Trimble on 11-23-2024 HbA1c (Bld) [Mass fraction] 5.6 % <5.7 [facility] Comment on above: Normal < 5.7 % Predi abetic 5.7 - 6.4 % Diabetic >or= 6.5 % Please note range changes. Hemoglobin measurementOrdere d By: Arnulfo Perrin on 11-23-2024 Hemoglobin (Bld) [Mass/Vol] 11.8 g/dL Low 12.0-15.0 [facility] Immature granulocytes/100 WB C Auto (Bld)Ordered By: Arnulfo Perrin on 11-23-2024 Immature granulocytes/100 WBC (Bld) 0.800 % 0.0-0.9 [facility] Comment on above: IG% - Immature Granu locytes (promyelocytes, myelocytes and metamyelocytes) > 1% indicates that a LEFT SHIFT is Present. International normalized rat io (INR) calculationOrdered By: Arnulfo Perrin on 11-23-2024 INR Coag (Bld) [Relative time] 1.1 {INR} [facility] L501.4021on 11-23-2024 Trop T High Sen 10 ng/L Normal <=14 [facility] Comment on above: Performed By: #### L 501.9985, L506.0400, L501.9520 #### [facility] [address] [place], [place], [address] MCV (mean corpuscular volume ) determinationOrdered By: Arnulfo Perrin on 11-23-2024 MCV (RBC) [Entitic vol] 91.1 fL 81-99 [facility] Mean corpuscular hemoglobin (MCH) determinationOrdered By: Arnulfo Perrin on 11-23-2024 MCH (RBC) [Entitic mass] 31.1 pg 27.0-32.0 [facility] Mean corpuscular hemoglobin concentration (MCHC) determinationOrdered By: Arnulfo Perrin on 11-23-2024 MCHC (RBC) [Mass/Vol] 34.1 g/dL 32-36 [facility] Mean platelet volume determi nationOrdered By: Arnulfo Perrin on 11-23-2024 Platelet mean volume (Bld) [Entitic vol] 9.1 fL 6.2-12.0 [facility] Monocyte percentageOrdered B y: Arnulfo Perrin on 11-23-2024 Monocytes/100 WBC (Bld) 11.0 % High 0-10 [facility] Neutrophil percentageOrdered By: Arnulfo Perrin on 11-23-2024 Neutrophils/100 WBC (Bld) 57.1 % 47-70 [facility] Nucleated red blood cell per centageOrdered By: Arnulfo Perrin on 11-23-2024 Nucleated RBC/100 WBC (Bld) [Ratio] 0 % 0-5 [facility] Partial Thromboplast Timeon 11-23-2024 aPTT Coag (Bld) [Time] 29.0 s Normal 24.1-36.2 [facility] Comment on above: Performed By: #### L 501.9985, L506.0400, L501.9520 #### [facility] [address] [facility] [place], [place], [id number] Platelet countOrdered By: Haim Perrin on 11-23-2024 Platelets (Bld) [#/Vol] 179 10*3/uL 150-450 [facility] Potassium measurement (mass/ volume)Ordered By: Arnulfo Perrin on 11-23-2024 Potassium (Unsp spec) [Mass/Vol] 4.2 mmol/L 3.3-5.1 [facility] Prothrombin Time w/INRon INR Coag (PPP) [Relative time] 1.1 {INR} Normal [facility] Comment on above: Performed By: #### L 501.9985, L506.0400, L501.9520 #### [facility] [address] [place], [address] PT Coag (PPP) [Time] 14.0 s Normal 11.7-14.9 [facility] Comment on above: Performed By: #### L 501.9985, L506.0400, L501.9520 #### [facility] [address] [facility] [place], [address] Prothrombin timeOrdered By: Arnulfo Perrin on 11-23-2024 PT Coag (PPP) [Time] 14.0 s 11.7-14.9 [facility] RBC Auto (Bld) [#/Vol]Ordere d By: Arnulfo Perrin on 11-23-2024 RBC (Bld) [#/Vol] 3.80 10*6/uL Low 4.2-5.4 [facility] STROKE Brain/Head without Co nton 11-23-2024 STROKE Brain/Head without Cont [facility] Imaging Services [address] [place], [place] [id number] STROKE Brain/Head without Cont MR#: [id number] Acct: [id number] Name: LILLIANA HUBER Rep #: [id number] : 1945 F 79 From: Matthias hills MD PCP: Dr. Elis Cardenas, DO Status: REG ER Study: STROKE Brain/Head without Cont Date of Exam: 0 11/23/24 Exam# [id number] Ordering Dr: Arnulfo Perrin MD PROCEDURE: STROKE [...] 3:48 pm with readback verification. Reading Location: [facility] CC: Dr. Arnulfo Perrin MD; Dr. Elis Cardenas DO Coil Connector Repairer: Signed Normal [facility] STROKE CTA Head AND Neck W/C onon 11-23-2024 STROKE CTA Head AND Neck W/Con [facility] Imaging Services [address] [place] [id number] STROKE CTA Head AND Neck W/Con MR#: [id number] Acct: [id number] Name: LILLIANA HUBER Rep #: [id number] : 1945 F 79 From: Jann Almanzar MD PCP: Dr. Elis Cardenas DO Status: REG ER Study: STROKE CTA Head AND Neck W/Con Date of Exam: 0 11/23/24 Exam# [id number] Ordering Dr: Arnulfo Perrin MD PROCEDURE: STROKE [...] vascular malformation identified. 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 Reading Location: [id number] CC: Dr. Arnulfo Perrin MD; Dr. Elis Cardenas DO Coil Connector Repairer: Signed Normal [facility] Serum creatinine measurement (mass/volume)Ordered By: Arnulfo Perrin on 11-23-2024 Creatinine [Mass/Vol] 0.75 mg/dL 0.70-1.20 [facility] Serum glucose measurement (m ass/volume)Ordered By: Arnulfo Perrin on 11-23-2024 Glucose [Mass/Vol] 95 mg/dL 70-99 [facility] Serum or plasma calcium idris urement (mass/volume)Ordered By: Arnulfo Garnicacristal on 11-23-2024 Calcium [Mass/Vol] 8.3 mg/dL 7.6-11.0 [facility] Serum or plasma urea nitroge n measurement (mass/volume)Ordered By: Arnulfo Perrin on 11-23-2024 Urea nitrogen [Mass/Vol] 17 mg/dL 4-19 [facility] Sodium levelOrdered By: Arnulfo Perrin on 11-23-2024 Sodium [Moles/Vol] 136 mmol/L 133-145 [facility] T4 Free Directon 11-23-2024 T4 FREE DIRECT 1.50 ng/dL High 0.76-1.46 [facility] Comment on above: Performed By: #### L 501.9985, L506.0400, L501.9520 #### [facility] [address] [place], [place], [id number] T4 freeOrdered By: Tad Trimble on 11-23-2024 Free T4 [Mass/Vol] 1.50 ng/dL High 0.76-1.46 [facility] TSH DL <= 0.005 mIU/L QnOrde red By: Tad Trimble on 11-23-2024 TSH Qn 8.080 uIU/mL High 0.300-4.200 [facility] Thyroid Stim Hormone (TSH)on 11-23-2024 TSH 8.080 uIU/mL High 0.300-4.200 [facility] Comment on above: Performed By: #### L 501.9985, L506.0400, L501.9520 #### [facility] [address] [place], [place], [address] Troponin T HS 2 HRon 025 Trop T High Sen 8 ng/L Normal <=14 [facility] Comment on above: Performed By: #### L 499.0042 ####[facility] [address] [place], [place], [address] Trop T High Sen Normal <=14 [facility] Comment on above: Order Comment: ER DI DNT DRAW AT DUE TIME. PT IS NOW ON FLOOR. WILL DRAWASAP Result Comment: Can elled via OM: Duplicate Order Performed By: #### L 499.0042 ####[facility] [address] [place], [address] Troponin T HS 4 HRon 025 Trop T High Sen 7 ng/L Normal <=14 [facility] Comment on above: Performed By: #### L 3410.9992, L3300.6820, L501.9520 #### [facility] [address] [place], [address] Trop T High Sen Normal <=14 [facility] Comment on above: Result Comment: Pal elled via OM: Duplicate Order Performed By: #### L 499.0043 #### [facility] [address] [place], [address] Troponin T.cardiac [Mass/vol ume] in Serum or Plasma by High sensitivity methodOrdered By: Arnulfo Perrin on 11-23-2024 Troponin T.cardiac High sensitivity method [Mass/Vol] 7 ng/L <14 [facility] Troponin T.cardiac High sensitivity method [Mass/Vol] 8 ng/L <14 [facility] Troponin T.cardiac High sensitivity method [Mass/Vol] 10 ng/L <14 [facility] White blood cell (WBC) count Ordered By: Arnulfo Perrin on 11-23-2024 WBC (Bld) [#/Vol] 5.0 10*3/uL 4.4-11.0 [facility] L3410.9992on 11-15-2024 [facility] Misc. COMMENT Normal . [facility] Comment on above: Order Comment: [id number] ALK PHOS ISOENZYME Result Comment: Test Ordered: [id number] Alkaline Phosphatase Alkaline Phosphatase 109 IU/L Reference Range: 44-121 Performed at: - [facility] [address] [id number] Vocational Training Director: Yunier Newton PhD, Phone: [phone] Performed By: #### L 3410.9992, L3300.6820, L501.9520 #### [facility] [address] [place], [address] Thyroglobulin w/Anti-TG ABon 11-15-2024 Anti-TG AB < 1.0 Normal 0.0-0.9 [facility] Comment on above: Result Comment: Thyr oglobulin Antibody measured by Toña Gabbie Methodology It should be noted that the presence of thyroglobulin antibodies may not be pathogenic nor diagnostic, especially at very low levels. The assay cut off sawyer log has found that four percent of individuals without evidence of thyroid disease or autoimmunity will have positive TgAb levels up to 4 IU/mL. Performed By: #### L 3410.9992, L3300.6820, L5019520 #### [facility] [address] [place], [address] THYROGLOB QUANT < 0.1 Low 1.5-38.5 [facility] Comment on above: Result Comment: Acco [...] by Toña Gabbie Immunometric Assay Performed at: [address] [id number] Vocational Training Director: Yunier Newton PhD, Phone: [phone] Performed By: #### L 3410.9992, L3300.6820, L548.9520 #### [facility] [address] [place], [address] TSH DL <= 0.005 mIU/L QnOrde red By: Lucian Munoz on 11-13-2024 TSH Qn 12.200 uIU/mL High 0.300-4.200 [facility] Thyroid Stim Hormone (TSH)on 11-13-2024 TSH 12.200 uIU/mL High 0.300-4.200 [facility] Comment on above: Performed By: #### L 3410.9992, L3300.6820, L501.9520 #### [facility] [address] [place], [place], [id number] Thyroglobulin w/Anti-TG ABon 11-08-2024 Anti-TG AB < 1.0 Normal 0.0-0.9 [facility] Comment on above: Result Comment: Thyr oglobulin Antibody measured by Toña Gabbie Methodology It should be noted that the presence of thyroglobulin antibodies may not be pathogenic nor diagnostic, especially at very low levels. The assay cut off sawyer log has found that four percent of individuals without evidence of thyroid disease or autoimmunity will have positive TgAb levels up to 4 IU/mL. Performed By: #### L 3410.9992, L3300.6820, [id number] #### [facility] [address] [place], [address] THYROGLOB QUANT < 0.1 Low 1.5-38.5 [facility] Comment on above: Result Comment: Acco [...] by Toña Gabbie Immunometric Assay Performed at: [address] [id number] Vocational Training Director: Yunier Newton PhD, Phone: [phone] Performed By: #### L 3410.9992, L3300.6820, L544.9520 #### [facility] [address] [place], [address] Anion gap in Serum or Plasma Ordered By: EASTON SPENCER on 11-07-2024 Anion gap [Moles/Vol] 12 mmol/L 09-07 [facility] BUN/creatinine ratioOrdered By: EASTON SPENCER on 11-07-2024 Urea nitrogen/Creatinine [Mass ratio] 19.0 mg/mg 10-20 [facility] Bilirubin, totalOrdered By: EASTON SPENCER on 11-07-2024 Bilirubin [Mass/Vol] 0.69 mg/dL 0.00-1.30 [facility] Carbon dioxide, total [Moles /volume] in Central venous bloodOrdered By: EASTON TJ on 11-07-2024 CO2 [Moles/Vol] 22.7 mmol/L 21.0-32.0 [facility] Chloride assayOrdered By: ME ROJASSA TJ on 11-07-2024 Chloride [Moles/Vol] 104 mmol/L 98-108 [facility] Comprehensive Metabolic Prof ilon 11-07-2024 Albumin [Mass/Vol] 4.1 g/dL Normal 3.4-4.8 [facility] Comment on above: Performed By: #### L 3410.9992, L3300.6820, L501.9520 #### [facility] [address] [place], [address] Albumin/Globulin [Mass ratio] 1.6 {ratio} Normal 0.9-2.4 [facility] Comment on above: Performed By: #### L 3410.9992, L3300.6820, L501.9520 #### [facility] [address] [place], [address] ALK PHOS 114 U/L High 35-104 [facility] Comment on above: Performed By: #### L 3410.9992, L3300.6820, L501.9520 #### [facility] [address] [place], [address] ALT [Catalytic activity/Vol] 17 U/L Normal <=34 [facility] Comment on above: Performed By: #### L 3410.9992, L3300.6820, L501.9520 #### [facility] [address] [place], [address] AST [Catalytic activity/Vol] 20 U/L Normal <=31 [facility] Comment on above: Performed By: #### L 3410.9992, L3300.6820, L501.9520 #### [facility] [address] [place], [address] Bilirubin [Mass/Vol] 0.69 mg/dL Normal 0.00-1.30 [facility] Comment on above: Performed By: #### L 3410.9992, L3300.6820, L501.9520 #### [facility] [address] [place], [address] BUN/CRE 19.0 RATIO Normal 10-20 [facility] Comment on above: Performed By: #### L 3410.9992, L3300.6820, L501.9520 #### [facility] [address] [place], [address] Calcium [Mass/Vol] 9.1 mg/dL Normal 7.6-11.0 [facility] Comment on above: Performed By: #### L 3410.9992, L3300.6820, L501.9520 #### [facility] [address] [place], [address] Chloride [Moles/Vol] 104 mmol/L Normal 98-108 [facility] Comment on above: Performed By: #### L 3410.9992, L3300.6820, L501.9520 #### [facility] [address] [place], [address] CO2 [Moles/Vol] 22.7 mmol/L Normal 21.0-32.0 [facility] Comment on above: Performed By: #### L 3410.9992, L3300.6820, L501.9520 #### [facility] [address] [place], [address] Creatinine [Mass/Vol] 0.90 mg/dL Normal 0.70-1.20 [facility] Comment on above: Performed By: #### L 3410.9992, L3300.6820, L501.9520 #### [facility] [address] [place], [address] GAP 12 Normal 5-15 [facility] Comment on above: Performed By: #### L 3410.9992, L3300.6820, L501.9520 #### [facility] [address] [place], [address] GFR/1.73 sq M.predicted among non-blacks MDRD (S/P/Bld) [Vol rate/Area] 64 mL/min/{1.73_m2} Normal >60 [facility] Comment on above: Result Comment: mL/m in/1.73m2 CKD-EPI Creatinine Equation (2020) Performed By: #### L 3410.9992, L3300.6820, L501.9520 #### [facility] [address] [place], [address] Globulin (S) [Mass/Vol] 2.5 g/dL Normal 2.2-4.2 [facility] Comment on above: Performed By: #### L 3410.9992, L3300.6820, L501.9520 #### [facility] [address] [place], [address] Glucose [Mass/Vol] 98 mg/dL Normal 70-99 [facility] Comment on above: Performed By: #### L 3410.9992, L3300.6820, L501.9520 #### [facility] [address] [place], [address] Potassium [Moles/Vol] 4.2 mmol/L Normal 3.3-5.1 [facility] Comment on above: Performed By: #### L 3410.9992, L3300.6820, L501.9520 #### [facility] [address] [place], [address] Sodium [Moles/Vol] 139 mmol/L Normal 133-145 [facility] Comment on above: Performed By: #### L 3410.9992, L3300.6820, L501.9520 #### [facility] [address] [place], [address] T PROT 6.7 g/dL Normal 5.9-8.4 [facility] Comment on above: Performed By: #### L 3410.9992, L3300.6820, L501.9520 #### [facility] [address] [place], [address] Urea nitrogen [Mass/Vol] 17 mg/dL Normal 4-19 [facility] Comment on above: Performed By: #### L 3410.9992, L3300.6820, L501.9520 #### [facility] [address] [place], [address] Glomerular filtration rate ( GFR) estimation/1.73 sq m using serum, plasma, or whole bOrdered By: EASTON SPENCER on 11-07-2024 GFR/1.73 sq M.predicted among non-blacks MDRD (S/P/Bld) [Vol rate/Area] 64 mL/min/{1.73_m2} >60 [facility] Comment on above: mL/min/1.73m2 CKD-EP I Creatinine Equation (2020) Laboratory - Chemistry and C hemistry - challengeOrdered By: EASTON SPENCER on 11-07-2024 AST [Catalytic activity/Vol] 20 U/L <32 [facility] Potassium measurement (mass/ volume)Ordered By: EASTON SPENCER on 11-07-2024 Potassium (Unsp spec) [Mass/Vol] 4.2 mmol/L 3.3-5.1 [facility] Serum creatinine measurement (mass/volume)Ordered By: EASTON SPENCER on 11-07-2024 Creatinine [Mass/Vol] 0.90 mg/dL 0.70-1.20 [facility] Serum globulin measurementOr dered By: EASTON SPENCRE on 11-07-2024 Globulin (S) [Mass/Vol] 2.5 g/dL 2.2-4.2 [facility] Serum glucose measurement (m ass/volume)Ordered By: EASTON SPENCER on 11-07-2024 Glucose [Mass/Vol] 98 mg/dL 70-99 [facility] Serum or plasma alanine boyd otransferase (ALT) measurementOrdered By: EASTON SPENCER on 11-07-2024 ALT [Catalytic activity/Vol] 17 U/L <35 [facility] Serum or plasma albumin idris urement (mass/volume)Ordered By: EASTON SPENCER on 11-07-2024 Albumin [Mass/Vol] 4.1 g/dL 3.4-4.8 [facility] Serum or plasma albumin/glob ulin mass ratioOrdered By: EASTON SPENCER on 11-07-2024 Albumin/Globulin [Mass ratio] 1.6 {ratio} 0.9-2.4 [facility] Serum or plasma alkaline lin sphatase measurementOrdered By: EASTON SPENCER on 11-07-2024 ALP [Catalytic activity/Vol] 114 U/L High 35-104 [facility] Serum or plasma calcium idris urement (mass/volume)Ordered By: EASTON SPENCER on 11-07-2024 Calcium [Mass/Vol] 9.1 mg/dL 7.6-11.0 [facility] Serum or plasma urea nitroge n measurement (mass/volume)Ordered By: EASTON SPENCER on 11-07-2024 Urea nitrogen [Mass/Vol] 17 mg/dL 4-19 [facility] Sodium levelOrdered By: JENNY SPENCER on 11-07-2024 Sodium [Moles/Vol] 139 mmol/L 133-145 [facility] TSH DL <= 0.005 mIU/L QnOrde red By: EASTON SPENCER on 11-07-2024 TSH Qn 10.300 uIU/mL High 0.300-4.200 [facility] Thyroid Stim Hormone (TSH)on 11-07-2024 TSH 10.300 uIU/mL High 0.300-4.200 [facility] Comment on above: Performed By: #### L 3410.9992, L3300.6820, L501.9520 #### [facility] [address] [place], [address] Total proteinOrdered By: CINDY SPENCER on 11-07-2024 Protein [Mass/Vol] 6.7 g/dL 5.9-8.4 [facility] Gastroenterology Visit Repor ton 10-18-2024 Gastroenterology Visit Report [facility] [address] [place] [address] OFFICE VISIT Date of Service: 10/18/24 MR#: [id number] Acct: [id number] Name: LILLIANA HUBER Rep #: [id number] : 1945 Provider: DORINDA mai Age/Sex: 79/F Location: [facility] [place] Status: Signed Intake Vital Signs 09/27/24 09:02 [...] Reasons: 3 WK fu Chief Complaint: constipaiton Gore Stitcher Required: No Accompanied by: Self Is patient [...] at home: Yes additional social history: - [place] HPI HPI Chief Complaint: constipaiton Details: LILLIANA [...] daily and follow-up in 3 weeks. Note: [employer] speech recognition desktop support specialist software was used to create portions of this document. Sound-alike and misspelled words, as well as other desktop support specialist errors may be contained in the documentation. Patient Instructions: KUB today High fiber diet Linzess 290mcg once daily, samples provided Follow-up in 3 weeks KUB 09/27/2024 - reports she tried Linzess but this caused diarrhea and she discontinued - she reports she is taking a laxative QOD (more content not included)... Normal [facility] Abdomen Single Viewon 2024 Abdomen Single View [facility] Imaging Services [address] [place], [place] [address] Abdomen Single View MR#: [id number] Acct: [id number] Name: LILLIANA HUBER Rep #: [id number] : 1945 F 78 From: Sharif Reynoso MD PCP: Dr. Elis Cardenas, DO Status: REG CLI Study: Abdomen Single View Date of Exam: 09/27/24 Exam# [id number] Ordering Dr: Afua Banuelos PROCEDURE: ABDOMEN SINGLE VIEW 09/27/2024 REASON FOR EXAM: CONSTIPATION TECHNIQUE: Single view abdomen. COMPARISON: None. FINDINGS: The bowel gas pattern is nonobstructive. There are no abnormal soft tissue calcifications or radiopaque foreign bodies. There are no significant bony abnormalities. RAD/Abdomen Single View IMPRESSION: No evidence of acute abdominal pathology. Reading Location: [id number] CC: DORINDA Banuelos; Dr. 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 [address] OFFICE VISIT Date of Service: 09/27/24 MR#: [id number] Acct: [id number] Name: LILLIANA HUBER Rep #: [id number] : 1945 Provider: DORINDA mai Age/Sex: 78/F Location: [facility] [place] Status: Signed Intake Vital Signs 08/24/24 08:16 [...] Complaint: I have been haivng bowel problems Gore Stitcher Required: No Accompanied by: Self Is patient [...] day and then it's loose. [facility] Medical History Coronary artery disease Hypertension Dyslipidemia [...] at home: Yes additional social history: - [place] HPI HPI Chief Complaint: I have been [...] decreased over the past couple years since [place] B: oatmeal L: sloppy brennan, potatoes, watermelon, rolls D: protein, vegetable - reports her water intake is good - Colonoscopy - per patient was 5-6 years ago, (more content not included)... Normal [facility] Cardiology Visit Reporton Cardiology Visit Report [facility] [place] [address] OFFICE VISIT Date of Service: 08/24/24 MR#: [id number] Acct: [id number] Name: LILLIANA HUBER Rep #: [id number] : 1945 Provider: Dr. Bella Irving MD Age/Sex: 78/F Location: [facility] [place] Status: Signed HPI HPI History of Present [...] NIBP Intake Visit Reasons: 6 M FU Gore Stitcher Required: No Accompanied by: Self Is patient [...] tablet 75 mg PO QDAY 08/24/24 08/24/24 Hi story Ejection fraction %: 65 Have you fallen [...] at home: Yes additional social history: - [place] ROS Const Const: Negative for fatigue, weakness, [...] for dizziness, (more content not included)... Normal [facility] .Thyroglobulin by HEATH [id number] on 08-17-2024 Thyroglob HEATH <0.1 Low 1.5-38.5 [facility] Comment on above: Result Comment: According [...] is 0.1 ng/mL Thyroglobulin measured by Toña Mather Immunometric Assay Performed At: [employer] [place], [place] [id number] Aman aFye PhD Ph:[phone] Performed By: #### 0 55696, CMP, TSH, GFR, 142465, VIDH #### [place] [address] THYRORFon 08-17-2024 Thyroglob Ab <1.0 Normal 0.0-0.9 [facility] Comment on above: Result Comment: Thyr oglobulin Antibody measured by Toña Mather Methodology It should be noted that the presence of thyroglobulin antibodies may not be pathogenic nor diagnostic, especially at very low levels. The assay cut off sawyer log has found that four percent of individuals without evidence of thyroid disease or autoimmunity will have positive TgAb levels up to 4 IU/mL. Performed At: [facility] [address] [id number] [place], [place] [id number] Aman Faye PhD Ph:[phone] Performed By: #### 0 18866, CMP, TSH, GFR, 000730, VIDH #### [place] [address] .GFRon 08-15-2024 Estimated Glomerular Filtration Rate 69 ml/min/1.73sqm Normal [facility] Comment on above: Result Comment: Stages [...] the eGFR results. Performed By: #### 0 76135, CMP, TSH, GFR, 187748, VIDH #### [address] 08-15-2024 Albumin Level 3.6 G/dL Normal 3.2-4.8 [facility] Comment on above: Performed By: #### 0 52099, CMP, TSH, GFR, 738036, VIDH #### [place] [address] Albumin/Globulin [Mass ratio] 1.2 {ratio} Normal 0.9-1.6 [facility] Comment on above: Performed By: #### 0 17121, CMP, TSH, GFR, 778294, VIDH #### [place] [address] ALP [Catalytic activity/Vol] 88 U/L Normal 38-126 [facility] Comment on above: Performed By: #### 0 20686, CMP, TSH, GFR, 983438, VIDH #### [address] [address] ALT [Catalytic activity/Vol] 17 U/L Normal 10-49 [facility] Comment on above: Performed By: #### 0 32669, CMP, TSH, GFR, 134716, VIDH #### [place] [id number] AST [Catalytic activity/Vol] 16 U/L Normal 8-34 [facility] Comment on above: Performed By: #### 0 84427, CMP, TSH, GFR, 876761, VIDH #### [place] [id number] Bili Total 0.60 mg/dL Normal 0.20-1.20 [facility] Comment on above: Result Comment: Use of this assay is not recommended for patients undergoing treatment with eltrombopag due to the potential for falsely elevated results. Performed By: #### 0 62858, CMP, TSH, GFR, 780267, VIDH #### [place] [address] BUN/Creatinine Ratio 18.8 ratio Normal 10.0-22.0 [facility] Comment on above: Performed By: #### 0 11687, CMP, TSH, GFR, 087295, VIDH #### [place] [id number] Calcium [Mass/Vol] 9.2 mg/dL Normal 8.7-10.4 [facility] Comment on above: Performed By: #### 0 65886, CMP, TSH, GFR, 311779, VIDH #### [place] [id number] Chloride [Moles/Vol] 107 mmol/L Normal 98-110 [facility] Comment on above: Performed By: #### 0 58804, CMP, TSH, GFR, 123710, VIDH #### [place] [id number] CO2 [Moles/Vol] 25 mmol/L Normal 22-32 [facility] Comment on above: Performed By: #### 0 01514, CMP, TSH, GFR, 105925, VIDH #### [place] [id number] Creatinine [Mass/Vol] 0.85 mg/dL Normal 0.50-1.20 [facility] Comment on above: Result Comment: Test ing performed on nVoq analyzer using enzymatic creatinine methodology. Performed By: #### 0 05801, CMP, TSH, GFR, 688154, VIDH #### [address] [address] Electrolyte Balance 8.0 mEq/L Normal 4.0-15.0 [facility] Comment on above: Performed By: #### 0 92725, CMP, TSH, GFR, 323484, VIDH #### [address] [address] Globulin 2.9 G/dL Normal 1.5-3.8 [facility] Comment on above: Performed By: #### 0 26330, CMP, TSH, GFR, 610193, VIDH #### [address] [address] Glucose [Mass/Vol] 102 mg/dL Normal 82-115 [facility] Comment on above: Performed By: #### 0 85316, CMP, TSH, GFR, 064233, VIDH #### [address] [address] Potassium [Moles/Vol] 4.0 mmol/L Normal 3.5-5.0 [facility] Comment on above: Performed By: #### 0 90146, CMP, TSH, GFR, 051636, VIDH #### [address] [address] Sodium [Moles/Vol] 140 mmol/L Normal 136-145 [facility] Comment on above: Performed By: #### 0 71843, CMP, TSH, GFR, 646682, VIDH #### [place] [address] Total Protein 6.5 G/dL Normal 5.7-8.2 [facility] Comment on above: Performed By: #### 0 64973, CMP, TSH, GFR, 417039, VIDH #### [address] [address] Urea nitrogen [Mass/Vol] 16.0 mg/dL Normal 8.0-22.0 [facility] Comment on above: Performed By: #### 0 61163, CMP, TSH, GFR, 213126, VIDH #### [address] [address] TSHon 08-15-2024 TSH 6.811 mIU/mL High 0.550-4.780 [facility] Comment on above: Performed By: #### 0 08304, CMP, TSH, GFR, 550306, VIDH #### [address] [address] VIDHon 08-15-2024 Vit. D 25-Hydroxy 45.3 ng/mL Normal [facility] Comment on above: Result Comment: Inte rpretive Values Based on Total 25(OH)D: Severe Deficiency <20 ng/mL Mild to Moderate Deficiency 20-30 ng/mL Optimum Levels 30-100 ng/mL Toxicity Possible >100 ng/mL Performed By: #### 0 87326, CMP, TSH, GFR, 073147, VIDH #### [facility] [address] [place] [address] Anion gap in Serum or Plasma Ordered By: Bella Irving on 07-17-2024 Anion gap [Moles/Vol] 11 mmol/L 5-15 [facility] BUN/creatinine ratioOrdered By: Bella Irving on 07-17-2024 Urea nitrogen/Creatinine [Mass ratio] 24.5 mg/mg High 10-20 [facility] Bilirubin, totalOrdered By: Bella Irving on 07-17-2024 Bilirubin [Mass/Vol] 0.41 mg/dL 0.00-1.30 [facility] CPK Total, Creatine Kinaseon 07-17-2024 CPK TOTAL 61 U/L Normal 24-195 [facility] Comment on above: Performed By: #### L 501.3620, L500.4100, L500.4050 ####[facility] [address] [place], [address] Calculated very low density lipoprotein (VLDL) cholesterol measurementOrdered By: Bella Irving on 07-17-2024 Calculated very low density lipoprotein (VLDL) cholesterol measurement 41 mg/dL High 5-40 [facility] VLDL Cholesterol 41 mg/dL High 5-40 [facility] Carbon dioxide, total [Moles /volume] in Central venous bloodOrdered By: Bella Irving on 07-17-2024 CO2 [Moles/Vol] 22.0 mmol/L 21.0-32.0 [facility] Chloride assayOrdered By: Bebeto Irving on 07-17-2024 Chloride [Moles/Vol] 107 mmol/L 98-108 [facility] Comprehensive Metabolic Prof ilon 07-17-2024 Albumin [Mass/Vol] 4.1 g/dL Normal 3.4-4.8 [facility] Comment on above: Performed By: #### L 501.3620, L500.4100, L500.4050 ####[facility] [address] [place], [address] Albumin/Globulin [Mass ratio] 1.6 {ratio} Normal 0.9-2.4 [facility] Comment on above: Performed By: #### L 501.3620, L500.4100, L500.4050 ####[facility] [address] [place], [address] ALK PHOS 91 U/L Normal 35-104 [facility] Comment on above: Performed By: #### L 501.3620, L500.4100, L500.4050 ####[facility] [address] [place], [address] ALT [Catalytic activity/Vol] 16 U/L Normal <=34 [facility] Comment on above: Performed By: #### L 501.3620, L500.4100, L500.4050 ####[facility] [address] [place], [address] AST [Catalytic activity/Vol] 18 U/L Normal <=31 [facility] Comment on above: Performed By: #### L 501.3620, L500.4100, L500.4050 ####[facility] [address] [place], [address] Bilirubin [Mass/Vol] 0.41 mg/dL Normal 0.00-1.30 [facility] Comment on above: Performed By: #### L 501.3620, L500.4100, L500.4050 ####[facility] [address] [place], [address] BUN/CRE 24.5 RATIO High 10-20 [facility] Comment on above: Performed By: #### L 501.3620, L500.4100, L500.4050 ####[facility] [address] [place], [address] Calcium [Mass/Vol] 9.1 mg/dL Normal 7.6-11.0 [facility] Comment on above: Performed By: #### L 501.3620, L500.4100, L500.4050 ####[facility] [address] [place], [address] Chloride [Moles/Vol] 107 mmol/L Normal 98-108 [facility] Comment on above: Performed By: #### L 501.3620, L500.4100, L500.4050 ####[facility] [address] [place], [address] CO2 [Moles/Vol] 22.0 mmol/L Normal 21.0-32.0 [facility] Comment on above: Performed By: #### L 501.3620, L500.4100, L500.4050 ####[facility] [address] [place], [address] Creatinine [Mass/Vol] 0.85 mg/dL Normal 0.70-1.20 [facility] Comment on above: Performed By: #### L 501.3620, L500.4100, L500.4050 ####[facility] [address] [place], [address] GAP 11 Normal 5-15 [facility] Comment on above: Performed By: #### L 501.3620, L500.4100, L500.4050 ####[facility] [address] [place], [address] GFR/1.73 sq M.predicted among non-blacks MDRD (S/P/Bld) [Vol rate/Area] 69 mL/min/{1.73_m2} Normal >60 [facility] Comment on above: Result Comment: mL/m in/1.73m2 CKD-EPI Creatinine Equation (2020) Performed By: #### L 501.3620, L500.4100, L500.4050 ####[facility] [address] [place], [address] Globulin (S) [Mass/Vol] 2.6 g/dL Normal 2.2-4.2 [facility] Comment on above: Performed By: #### L 501.3620, L500.4100, L500.4050 ####[facility] [address] [place], [address] Glucose [Mass/Vol] 83 mg/dL Normal 70-99 [facility] Comment on above: Performed By: #### L 501.3620, L500.4100, L500.4050 ####[facility] [address] [place], [address] Potassium [Moles/Vol] 4.2 mmol/L Normal 3.3-5.1 [facility] Comment on above: Performed By: #### L 501.3620, L500.4100, L500.4050 ####[facility] [address] [place], [address] Sodium [Moles/Vol] 141 mmol/L Normal 133-145 [facility] Comment on above: Performed By: #### L 501.3620, L500.4100, L500.4050 ####[facility] [address] [place], [address] T PROT 6.7 g/dL Normal 5.9-8.4 [facility] Comment on above: Performed By: #### L 501.3620, L500.4100, L500.4050 ####[facility] [address] [place], [address] Urea nitrogen [Mass/Vol] 21 mg/dL High 4-19 [facility] Comment on above: Performed By: #### L 501.3620, L500.4100, L500.4050 ####[facility] [address] [place], [address] GFR/1.73 sq M.predicted sabrina g non-blacks MDRD (S/P/Bld) [Vol rate/Area]Ordered By: Bella Irving on 07-17-2024 Estimated GFR (MDRD) Non-Af Amer 69 >60 [facility] Comment on above: mL/min/1.73m2 CKD-EP I Creatinine Equation (2020) Glomerular filtration rate ( GFR) estimation/1.73 sq m using serum, plasma, or whole bOrdered By: Bella Irving on 07-17-2024 GFR/1.73 sq M.predicted among non-blacks MDRD (S/P/Bld) [Vol rate/Area] 69 mL/min/{1.73_m2} >60 [facility] Comment on above: mL/min/1.73m2 CKD-EP I Creatinine Equation (2020) LDL calc ser/plasOrdered By: Bella Irving on 07-17-2024 Cholesterol in LDL [Mass/Vol] 82 mg/dL [facility] Comment on above: Hgbsrgljtb=711-772 m g/dL & Higher Qlxh=470 mg/dL or greater LDL Cholesterol, Calculated 82 mg/dL [facility] Comment on above: Bmxahmxjlf=370-449 m g/dL & Higher Sskf=261 mg/dL or greater Laboratory - Chemistry and C hemistry - challengeOrdered By: Bella Irving on 07-17-2024 AST [Catalytic activity/Vol] 18 U/L <32 [facility] Lipid Profileon 07-17-2024 CHOL:HDL 3.29 Normal [facility] Comment on above: Performed By: #### L 501.3620, L500.4100, L500.4050 ####[facility] [address] [place], [address] Cholesterol [Mass/Vol] 177 mg/dL Normal <=200 [facility] Comment on above: Result Comment: Chol esterol level, Desirable <200 mg/dL Borderline high cholesterol 200-239 mg/dL High cholesterol >=240 mg/dL Recommendations of the NCEP Adult Treatment Panel for the following risk-cutoff thresholds for the [place] population. Performed By: #### L 501.3620, L500.4100, L500.4050 ####[facility] [address] [place], [address] Cholesterol in HDL [Mass/Vol] 54 mg/dL Normal [facility] Comment on above: Result Comment: Maria Del Rosario onal Cholesterol Education Program (NCEP) guidelines: <40 mg/dL: Low HDL-cholesterol (major risk factor for CHD) >= 60 mg/dL: High HDL-cholesterol (negative risk factor for CHD) HDL-cholesterol is affected by a number of factors, e.g. smoking, exercise, hormones, sex and age. Performed By: #### L 501.3620, L500.4100, L500.4050 ####[facility] [address] [place], [address] Cholesterol in LDL [Mass/Vol] 82 mg/dL Normal [facility] Comment on above: Result Comment: Bord kjxscp=816-618 mg/dL Higher Xwnf=720 mg/dL or greater Performed By: #### L 501.3620, L500.4100, L500.4050 ####[facility] [address] [place], [address] Cholesterol in VLDL [Mass/Vol] 41 mg/dL High 5-40 [facility] Comment on above: Performed By: #### L 501.3620, L500.4100, L500.4050 ####[facility] [address] [place], [address] Triglyceride [Mass/Vol] 204 mg/dL High [facility] Comment on above: Result Comment: The drugs N-Acetylcysteine and Metamizole may falsely depress this assay. Normal range: <150 mg/dL Borderline High: 150-199 mg/dL High: 200-499 mg/dL Very High: >500 mg/dL Performed By: #### L 501.3620, L500.4100, L500.4050 ####[facility] [address] [place], [place], [address] Potassium (Unsp spec) [Mass/ Vol]Ordered By: Bella Irving on 07-17-2024 Potassium [Moles/Vol] 4.2 mmol/L 3.3-5.1 [facility] Potassium measurement (mass/ volume)Ordered By: Bella Irving on 07-17-2024 Potassium (Unsp spec) [Mass/Vol] 4.2 mmol/L 3.3-5.1 [facility] Screening total cholesterol/ high density lipoprotein (HDL) cholesterol ratioOrdered By: Bella Irving on 07-17-2024 Cholesterol.total/Choles terol in HDL [Mass ratio] 3.29 {ratio} [facility] Serum creatinine measurement (mass/volume)Ordered By: Bella Irving on 07-17-2024 Creatinine [Mass/Vol] 0.85 mg/dL 0.70-1.20 [facility] Serum globulin measurementOr dered By: Bella Irving on 07-17-2024 Globulin (S) [Mass/Vol] 2.6 g/dL 2.2-4.2 [facility] Serum glucose measurement (m ass/volume)Ordered By: Bella Irving on 07-17-2024 Glucose [Mass/Vol] 83 mg/dL 70-99 [facility] Serum or plasma alanine boyd otransferase (ALT) measurementOrdered By: Bella Irving on 07-17-2024 ALT [Catalytic activity/Vol] 16 U/L <35 [facility] Serum or plasma albumin idris urement (mass/volume)Ordered By: Bella Irving on 07-17-2024 Albumin [Mass/Vol] 4.1 g/dL 3.4-4.8 [facility] Serum or plasma albumin/glob ulin mass ratioOrdered By: Bella Irving on 07-17-2024 Albumin/Globulin [Mass ratio] 1.6 {ratio} 0.9-2.4 [facility] Serum or plasma alkaline lin sphatase measurementOrdered By: Bella Irving on 07-17-2024 ALP [Catalytic activity/Vol] 91 U/L 35-104 [facility] Serum or plasma calcium idris urement (mass/volume)Ordered By: Bella Irving on 07-17-2024 Calcium [Mass/Vol] 9.1 mg/dL 7.6-11.0 [facility] Serum or plasma cholesterol in HDL measurement (mass/volume)Ordered By: Bella Irving on 07-17-2024 Cholesterol in HDL [Mass/Vol] 54 mg/dL >40 [facility] Comment on above: National Cholesterol Education Program (NCEP) guidelines:<40 mg/dL: Low HDL-cholesterol (major risk factor for CHD)>= 60 mg/dL: High HDL-cholesterol (negative risk factor for CHD)HDL-cholesterol is affected by a number of factors, e.g. smoking, exercise, hormones, sex and age. Serum or plasma cholesterol measurement (mass/volume)Ordered By: Bella Irving on 07-17-2024 Cholesterol [Mass/Vol] 177 mg/dL <201 [facility] Comment on above: Cholesterol level, D esirable <200 mg/dLBorderline high cholesterol 200-239 mg/dLHigh cholesterol >=240 mg/dLRecommendations of the NCEP Adult Treatment Panel for the following risk-cutoff thresholds for the [place] population. Serum or plasma creatine kin ase activityOrdered By: Bella Irving on 07-17-2024 CK [Catalytic activity/Vol] 61 U/L 24-195 [facility] Serum or plasma urea nitroge n measurement (mass/volume)Ordered By: Bella Irving on 07-17-2024 Urea nitrogen [Mass/Vol] 21 mg/dL High 4-19 [facility] Sodium levelOrdered By: Sivakumar Irving on 07-17-2024 Sodium [Moles/Vol] 141 mmol/L 133-145 [facility] Total proteinOrdered By: Gio Irving on 07-17-2024 Protein [Mass/Vol] 6.7 g/dL 5.9-8.4 [facility] Triglycerides measurementOrd ered By: Bella Irving on 07-17-2024 Triglyceride [Mass/Vol] 204 mg/dL High <199 [facility] Comment on above: The drugs N-Acetylcy steine and Metamizole may falsely depress this assay. Normal range: <150 mg/dLBorderline High: 150-199 mg/dLHigh: 200-499 mg/dLVery High: >500 mg/dL Neurology Visit Reporton Neurology Visit Report [facility] [address], [address] [place] [address] OFFICE VISIT Date of Service: 07/13/24 MR#: [id number] Acct: [id number] Name: LILLIANA HUBER Rep #: [id number] : 1945 Provider: Dr. 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 [...] 02/15/2023. Moderat (more content not included)... Normal [facility] Absolute neutrophil countOrd ered By: Elis Cardenas on 05-22-2024 Neutrophils (Bld) [#/Vol] 3.4 10*3/uL 2.0-7.7 [facility] Albumin to globulin ratioOrd ered By: Elis Cardenas on 05-22-2024 Albumin/Globulin [Mass ratio] 1.1 {ratio} 0.9-2.4 [facility] Basophil percentageOrdered B y: Elis Cardenas on 05-22-2024 Basophils/100 WBC (Bld) 1.4 % High 0-1 [facility] Bilirubin, totalOrdered By: Elis Cardenas on 05-22-2024 Bilirubin [Mass/Vol] 0.70 mg/dL 0.20-1.00 [facility] Comment on above: For patients on eltr ombopag therapy, use of Dimension [place] TBIL is not recommended. Blood urea nitrogen (BUN)/cr eatinine ratioOrdered By: Elis Cardenas on 05-22-2024 Urea nitrogen/Creatinine [Mass ratio] 22.5 mg/mg High 10-20 [facility] CBC W/Diff, Automatedon 04-27 Absolute Lymph 1.49 X10 3/uL Normal 0.83-4.51 [facility] Comment on above: Performed By: #### L 501.9985, L506.0400, L501.9520 #### [facility] [address] [place], [address] Absolute Neut 3.4 X10 3/uL Normal 2.0-7.7 [facility] Comment on above: Performed By: #### L 501.9985, L506.0400, L501.9520 #### [facility] [address] [place], [address] Basophils/100 WBC (Bld) 1.4 % High 0-1 [facility] Comment on above: Performed By: #### L 501.9985, L506.0400, L501.9520 #### [facility] [address] [place], [address] Eosinophils/100 WBC (Bld) 3.0 % Normal 0-5 [facility] Comment on above: Performed By: #### L 501.9985, L506.0400, L501.9520 #### [facility] [address] [place], [address] Erythrocyte distribution width (RBC) [Ratio] 13.2 % Normal 11.6-14.6 [facility] Comment on above: Performed By: #### L 501.9985, L506.0400, L501.9520 #### [facility] [address] [place], [address] Hematocrit (Bld) [Volume fraction] 41.7 % Normal 37-47 [facility] Comment on above: Performed By: #### L 501.9985, L506.0400, L501.9520 #### [facility] [address] [place], [address] Hemoglobin (Bld) [Mass/Vol] 13.5 g/dL Normal 12.0-15.0 [facility] Comment on above: Performed By: #### L 501.9985, L506.0400, L501.9520 #### [facility] [address] [place], [address] IG% 0.400 Normal 0.0-0.9 [facility] Comment on above: Result Comment: IG% - Immature Granulocytes (promyelocytes, myelocytes and metamyelocytes) > 1% indicates that a LEFT SHIFT is Present. Performed By: #### L 501.9985, L506.0400, L501.9520 #### [facility] [address] [place], [address] Lymphocytes/100 WBC (Bld) 26.3 % Normal 19-41 [facility] Comment on above: Performed By: #### L 501.9985, L506.0400, L501.9520 #### [facility] [address] [place], [address] MCH (RBC) [Entitic mass] 29.5 pg Normal 27.0-32.0 [facility] Comment on above: Performed By: #### L 501.9985, L506.0400, L501.9520 #### [facility] [address] [place], [address] MCHC (RBC) [Mass/Vol] 32.4 g/dL Normal 32-36 [facility] Comment on above: Performed By: #### L 501.9985, L506.0400, L501.9520 #### [facility] [address] [place], [address] MCV (RBC) [Entitic vol] 91.2 fL Normal 81-99 [facility] Comment on above: Performed By: #### L 501.9985, L506.0400, L501.9520 #### [facility] [address] [place], [address] Monocytes/100 WBC (Bld) 8.5 % Normal 0-10 [facility] Comment on above: Performed By: #### L 501.9985, L506.0400, L501.9520 #### [facility] [address] [place], [address] Neutrophils/100 WBC (Bld) 60.4 % Normal 47-70 [facility] Comment on above: Performed By: #### L 501.9985, L506.0400, L501.9520 #### [facility] [address] [place], [address] Nucleated RBC (Bld) [#/Vol] 0 10*3/uL Normal 0-5 [facility] Comment on above: Performed By: #### L 501.9985, L506.0400, L501.9520 #### [facility] [address] [place], [address] Platelet mean volume (Bld) [Entitic vol] 9.4 fL Normal 6.2-12.0 [facility] Comment on above: Performed By: #### L 501.9985, L506.0400, L501.9520 #### [facility] [address] [place], [address] Platelets (Bld) [#/Vol] 218 10*3/uL Normal 150-450 [facility] Comment on above: Performed By: #### L 501.9985, L506.0400, L501.9520 #### [facility] [address] [place], [address] RBC (Bld) [#/Vol] 4.57 10*6/uL Normal 4.2-5.4 [facility] Comment on above: Performed By: #### L 501.9985, L506.0400, L501.9520 #### [facility] [address] [place], [address] RDW SD 44.8 fl High 35.1-43.9 [facility] Comment on above: Performed By: #### L 501.9985, L506.0400, L501.9520 #### [facility] [address] [place], [address] WBC (Bld) [#/Vol] 5.7 10*3/uL Normal 4.4-11.0 [facility] Comment on above: Performed By: #### L 501.9985, L506.0400, L501.9520 #### [facility] [address] [place], [address] Carbon dioxide measurementOr dered By: Elis Cardenas on 05-22-2024 CO2 [Moles/Vol] 22.0 mmol/L 21.0-32.0 [facility] Chloride measurementOrdered By: Elis Cardenas on 05-22-2024 Chloride [Moles/Vol] 110 mmol/L High 98-107 [facility] Comprehensive Metabolic Prof ilon 05-22-2024 Albumin [Mass/Vol] 3.6 g/dL Normal 3.2-5.0 [facility] Comment on above: Performed By: #### L 501.9985, L506.0400, L501.9520 #### [facility] [address] [place], [address] Albumin/Globulin [Mass ratio] 1.1 {ratio} Normal 0.9-2.4 [facility] Comment on above: Performed By: #### L 501.9985, L506.0400, L501.9520 #### [facility] [address] [place], [address] ALK P 88 U/L Normal 45-117 [facility] Comment on above: Performed By: #### L 501.9985, L506.0400, L501.9520 #### [facility] [address] [place], [address] ALT [Catalytic activity/Vol] 24 U/L Normal 13-56 [facility] Comment on above: Performed By: #### L 501.9985, L506.0400, L501.9520 #### [facility] [address] [place], [address] AST [Catalytic activity/Vol] 17 U/L Normal 15-37 [facility] Comment on above: Performed By: #### L 501.9985, L506.0400, L501.9520 #### [facility] [address] [place], [address] Bilirubin [Mass/Vol] 0.70 mg/dL Normal 0.20-1.00 [facility] Comment on above: Result Comment: For patients on eltrombopag therapy, use of Dimension [place] TBIL is not recommended. Performed By: #### L 501.9985, L506.0400, L501.9520 #### [facility] [address] [place], [address] BUN/CRE 22.5 RATIO High 10-20 [facility] Comment on above: Performed By: #### L 501.9985, L506.0400, L501.9520 #### [facility] [address] [place], [address] CA,Total 9.2 mg/dL Normal 8.5-10.1 [facility] Comment on above: Performed By: #### L 501.9985, L506.0400, L501.9520 #### [facility] [address] [place], [address] Chloride [Moles/Vol] 110 mmol/L High 98-107 [facility] Comment on above: Performed By: #### L 501.9985, L506.0400, L501.9520 #### [facility] [address] [place], [address] CO2 [Moles/Vol] 22.0 mmol/L Normal 21.0-32.0 [facility] Comment on above: Performed By: #### L 501.9985, L506.0400, L501.9520 #### [facility] [address] [place], [address] Creatinine [Mass/Vol] 0.89 mg/dL Normal 0.55-1.02 [facility] Comment on above: Result Comment: The validity of the calculated GFR GFRAA in patients over 70 years has not been determined. Clinical correlation is essential. Performed By: #### L 501.9985, L506.0400, L501.9520 #### [facility] [address] [place], [address] EST GFR - AA 79 mL/min Normal >60 [facility] Comment on above: Result Comment: Afri can Polish GFR Calc Performed By: #### L 501.9985, L506.0400, L501.9520 #### [facility] [address] [place], [address] GAP 7 Normal 5-15 [facility] Comment on above: Performed By: #### L 501.9985, L506.0400, L501.9520 #### [facility] [address] [place], [address] GFR/1.73 sq M.predicted among non-blacks MDRD (S/P/Bld) [Vol rate/Area] 65 mL/min/{1.73_m2} Normal >60 [facility] Comment on above: Result Comment: Non- GFR Calc Performed By: #### L 501.9985, L506.0400, L501.9520 #### [facility] [address] [place], [address] Globulin (S) [Mass/Vol] 3.4 g/dL Normal 2.2-4.2 [facility] Comment on above: Performed By: #### L 501.9985, L506.0400, L501.9520 #### [facility] [address] [place], [address] Glucose [Mass/Vol] 93 mg/dL Normal 74-106 [facility] Comment on above: Performed By: #### L 501.9985, L506.0400, L501.9520 #### [facility] [address] [place], [address] Potassium [Moles/Vol] 4.3 mmol/L Normal 3.5-5.1 [facility] Comment on above: Performed By: #### L 501.9985, L506.0400, L501.9520 #### [facility] [address] [place], [address] Sodium [Moles/Vol] 139 mmol/L Normal 136-145 [facility] Comment on above: Performed By: #### L 501.9985, L506.0400, L501.9520 #### [facility] [address] [place], [address] T PROT 7.0 g/dL Normal 6.4-8.2 [facility] Comment on above: Performed By: #### L 501.9985, L506.0400, L501.9520 #### [facility] [address] [place], [address] Urea nitrogen [Mass/Vol] 20 mg/dL High 7-18 [facility] Comment on above: Performed By: #### L 501.9985, L506.0400, L501.9520 #### [facility] [address] [place], [address] Eosinophil percentageOrdered By: Elis Cardenas on 05-22-2024 Eosinophils/100 WBC (Bld) 3.0 % 0-5 [facility] Erythrocyte distribution wid th ratioOrdered By: lEis Cardenas on 05-22-2024 Erythrocyte distribution width (RBC) [Ratio] 13.2 % 11.6-14.6 [facility] Erythrocyte distribution wid th standard deviationOrdered By: Elis Cardenas on 05-22-2024 Erythrocyte distribution width (RBC) [Entitic vol] 44.8 fL High 35.1-43.9 [facility] Estimated glomerular filtrat ion rate (GFR) AmericanOrdered By: Elis Cardenas on 05-22-2024 Estimated GFR (MDRD) Amer 79 mL/min >60 [facility] Comment on above: GFR Calc Glomerular filtration rate ( GFR) estimationOrdered By: Elis Cardenas on 05-22-2024 Estimated GFR (MDRD) Non-Af Amer 65 mL/min >60 [facility] Comment on above: Non- GFR Calc Glucose measurementOrdered B y: Elis Cardenas on 05-22-2024 Glucose [Mass/Vol] 93 mg/dL 74-106 [facility] Hematocrit Auto (Bld) [Volum e fraction]Ordered By: Elis Cardenas on 05-22-2024 Hematocrit (Bld) [Volume fraction] 41.7 % 37-47 [facility] Hemoglobin measurementOrdere d By: Elis Cardenas on 05-22-2024 Hemoglobin (Bld) [Mass/Vol] 13.5 g/dL 12.0-15.0 [facility] Immature granulocytes/100 WB C Auto (Bld)Ordered By: Elis Cardenas on 05-22-2024 Immature granulocytes/100 WBC (Bld) 0.400 % 0.0-0.9 [facility] Comment on above: IG% - Immature Granu locytes (promyelocytes, myelocytes and metamyelocytes) > 1% indicates that a LEFT SHIFT is Present. Laboratory - Chemistry and C hemistry - challengeOrdered By: Elis Cardenas on 05-22-2024 AST [Catalytic activity/Vol] 17 U/L 15-37 [facility] Lymphocytes Auto (Unsp spec) [#/Vol]Ordered By: Elis Cardenas on 05-22-2024 Lymphocytes (Bld) [#/Vol] 1.49 10*3/uL 0.83-4.51 [facility] Lymphocytes/100 WBC Auto (Un sp spec)Ordered By: Elis Cardenas on 05-22-2024 Lymphocytes/100 WBC (Bld) 26.3 % 19-41 [facility] MCV (mean corpuscular volume ) determinationOrdered By: Elis Cardenas on 05-22-2024 MCV (RBC) [Entitic vol] 91.2 fL 81-99 [facility] Mean corpuscular hemoglobin (MCH) determinationOrdered By: Elis Cardenas on 05-22-2024 MCH (RBC) [Entitic mass] 29.5 pg 27.0-32.0 [facility] Mean corpuscular hemoglobin concentration (MCHC) determinationOrdered By: Elis Cardenas on 05-22-2024 MCHC (RBC) [Mass/Vol] 32.4 g/dL 32-36 [facility] Mean platelet volume determi nationOrdered By: Elis Cardenas on 05-22-2024 Platelet mean volume (Bld) [Entitic vol] 9.4 fL 6.2-12.0 [facility] Monocyte percentageOrdered B y: Elis Cardenas on 05-22-2024 Monocytes/100 WBC (Bld) 8.5 % 0-10 [facility] Neutrophil percentageOrdered By: Elis Cardenas on 05-22-2024 Neutrophils/100 WBC (Bld) 60.4 % 47-70 [facility] Nucleated red blood cell per centageOrdered By: Elis Cardenas on 05-22-2024 Nucleated RBC/100 WBC (Bld) [Ratio] 0 % 0-5 [facility] Platelet countOrdered By: Shaneka Cardenas on 05-22-2024 Platelets (Bld) [#/Vol] 218 10*3/uL 150-450 [facility] Potassium measurementOrdered By: Elis Cardenas on 05-22-2024 Potassium [Moles/Vol] 4.3 mmol/L 3.5-5.1 [facility] RBC Auto (Bld) [#/Vol]Ordere d By: Elis Cardenas on 05-22-2024 RBC (Bld) [#/Vol] 4.57 10*6/uL 4.2-5.4 [facility] Serum anion gap measurementO rdered By: Elis Cardenas on 05-22-2024 Anion gap [Moles/Vol] 7 mmol/L 5-15 [facility] Serum globulin measurementOr dered By: Elis Cradenas on 05-22-2024 Globulin (S) [Mass/Vol] 3.4 g/dL 2.2-4.2 [facility] Serum or plasma alanine boyd otransferase (ALT) measurementOrdered By: Elis Cardenas on 05-22-2024 ALT [Catalytic activity/Vol] 24 U/L 13-56 [facility] Serum or plasma albumin idris urement (mass/volume)Ordered By: Elis Cardenas on 05-22-2024 Albumin [Mass/Vol] 3.6 g/dL 3.2-5.0 [facility] Serum or plasma alkaline lin sphatase measurementOrdered By: Elis Cardenas on 05-22-2024 ALP [Catalytic activity/Vol] 88 U/L 45-117 [facility] Serum or plasma calcium idris urement (mass/volume)Ordered By: Elis Cardenas on 05-22-2024 Calcium [Mass/Vol] 9.2 mg/dL 8.5-10.1 [facility] Serum or plasma creatinine m easurement (mass/volume)Ordered By: Elis Cardenas on 05-22-2024 Creatinine [Mass/Vol] 0.89 mg/dL 0.55-1.02 [facility] Comment on above: The validity of the calculated GFR & GFRAA in patients over 70 years has not been determined. Clinical correlation is essential. Serum or plasma urea nitroge n measurement (mass/volume)Ordered By: Elis Cardenas on 05-22-2024 Urea nitrogen [Mass/Vol] 20 mg/dL High 7-18 [facility] Sodium levelOrdered By: Elis Cardenas on 05-22-2024 Sodium [Moles/Vol] 139 mmol/L 136-145 [facility] Total proteinOrdered By: Camila Cardenas on 05-22-2024 Protein [Mass/Vol] 7.0 g/dL 6.4-8.2 [facility] White blood cell (WBC) count Ordered By: Elis Cardenas on 05-22-2024 WBC (Bld) [#/Vol] 5.7 10*3/uL 4.4-11.0 [facility] MR/BMS.EVYSon 05-16-2024 MR/BMS.BVS [facility] 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 Normal [facility] CREATININE FINGERSTICKon Creatinine [Mass/Vol] 1.2 mg/dL High 0.55-1.02 [facility] Comment on above: Performed By: #### L 3410.9992, L3300.6820, L501.9520 #### [facility] [address] [place], [address] GFR/1.73 sq M.predicted among non-blacks MDRD (S/P/Bld) [Vol rate/Area] 44.0000 mL/min/{1.73_m2} Low >60 [facility] Comment on above: Performed By: #### L 3410.9992, L3300.6820, L501.9520 #### [facility] [address] [place], [address] CTA Head W/WO Contraston CTA Head W/WO Contrast [facility] [address] [place] [address] CTA Head W/WO Contrast MR#: [id number] Acct: [id number] Name: LILLIANA HUBER Rep #: [id number] : 1945 F 78 From: Arnulfo Green MD PCP: Dr. Elis Cardenas, DO Status: REG CLI Study: CTA Head W/WO Contrast Date of Exam: 05/02/24 Exam# [id number] Ordering Dr: Royal Martinez MD [id number] INDICATION: Basilar artery stenosis EXAMINATION: CTA HEAD - CTA Head WO/W Contrast Injection TECHNIQUE: Rosalia of Martins/head CT angiogram protocol was performed [...] vessel plaques along the posterior communicating arteries. liquor rectifier: Multiple small vessel plaques in both posterior [...] Elis Cardenas DO; Dr. Royal Martinez MD Coil Connector Repairer: Signed Normal [facility] Creatinine measurement at dsideOrdered By: Royal Martinez on 05-02-2024 Creatinine [Mass/Vol] 1.2 mg/dL High 0.55-1.02 [facility] EGFROrdered By: Royal kumar on 05-02-2024 GFR/1.73 sq M.predicted among non-blacks MDRD (S/P/Bld) [Vol rate/Area] 44.0000 mL/min/{1.73_m2} Low >60 [facility] Neurology Visit Reporton Neurology Visit Report [facility] [address] [place] [address], [address] [place] [address] OFFICE VISIT Date of Service: 04/25/24 MR#: [id number] Acct: [id number] Name: LILLIANA HUBER Rep #: [id number] : 1945 Provider: Dr. 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 [...] prior.. VENTRICLES: (more content not included)... Normal [facility] Carotid Duplex Ultrasoundon 04-04-2024 Carotid Duplex Ultrasound [facility] [address] [place] [address] Carotid Duplex Ultrasound 04/04/24 1249 MR#: [id number] Acct: [id number] Name: LILLIANA HUBER Rep #: [id number] : 1945 78 From: Jakub Godinez MD Attending Dr: Dr. Bella Irving MD Status: REG I Ordering Dr: Bella Irving MD Date: 04/04/24 [...] the left vertebral artery. Procedure Carotid Duplex 11063. This is a Carotid Duplex examination using B-mode, color flow and specral Doppler. The exam was diagnostic. Exam performed in department. VL/Carotid Duplex Ultrasound Interpretation Summary Mild (<50%) stenosis right extracranial internal carotid. Mild (<50%) stenosis left extracranial internal carotid. Patent and antegrade vertebrals bilaterally. Ordering Physician: Bella Irving Referring Physician: Elis Cardenas Performed By: Josh Hinton RVT 04/04/24 1714 Date Jakub Godinez MD CC: Dr. Bella Irving MD; Dr. Elis Cardenas DO Date Dictated: 04/04/24 1249 Date Transcribed: 04/04/24 1714 Coil Connector Repairer: Signed Normal [facility] Echo Completeon 04-04-2024 Echo Complete [facility] [address] [place] [address] Echo Complete 04/04/24 1353 MR#: [id number] Acct: [id number] Name: LILLIANA HUBER Rep #: [id number] : 1945 78 From: Bella Irving MD Attending Dr: Dr. Bella Irving MD Status: REG I Ordering Dr: Bella Irving MD Date: 04/04/24 Location: [facility] Sex: F C Admitted: Reason For Study: [...] Dr. Elis Cardenas DO Date Dictated: 04/04/24 1353 Date Transcribed: 04/04/24 1525 Coil Connector Repairer: Signed Normal [facility] Brain/Head W/WO Contraston 1 05-21-2023 Brain/Head W/WO Contrast [facility] Imaging Services [address] [place] [address] Brain/Head W/WO Contrast MR#: [id number] Acct: [id number] Name: LILLIANA HUBER Rep #: [id number] : 1945 F 78 From: Vin Parrish MD PCP: Dr. Elis Cardenas DO Status: REG CLI Study: Brain/Head W/WO Contrast Date of Exam: 4 Exam# [id number] Ordering Dr: Bella Irving MD [id number] INDICATION: Knocking sensation in head EXAMINATION: CT [...] Bella Irving MD; Dr. Elis Cardenas DO Coil Connector Repairer: Signed Normal [facility] CREATININE FINGERSTICKon CREATININE WB < 1.0 Normal 0.55-1.02 [facility] Comment on above: Performed By: #### L 3410.9992, L3300.6820, L501.9520 #### [facility] [address] [place], [place], [address] EGFR WB > 60.0000 Normal >60 [facility] Comment on above: Performed By: #### L 3410.9992, L3300.6820, L501.9520 #### [facility] [address] [place], [place], [id number] Cardiology Visit Reporton Cardiology Visit Report [facility] [address] [place], [place] [address] OFFICE VISIT Date of Service: 03/13/24 MR#: [id number] Acct: [id number] Name: LILLIANA HUBER Rep #: [id number] : 1945 Provider: Dr. Bella Irving MD Age/Sex: 78/F Location: [facility] [place] Status: Signed HPI HPI History of Present [...] NIBP Intake Visit Reasons: 6 M FU Gore Stitcher Required: No Accompanied by: Self Is patient [...] at home: Yes additional social history: - [place] ROS Const Const: Negative for fatigue, weakness, [...] or balanc (more content not included)... Normal [facility] Basophil percentageOrdered B y: Bella Irving on 07-09-2023 Cholesterol [Mass/Vol] 249 mg/dL <200 [facility] Comment on above: <200 mg/dL Desirable 200-240 mg/dL Borderline >240 mg/dL High Risk Triglyceride [Mass/Vol] 317 mg/dL <199 [facility] Comment on above: The drugs N-Acetylcy steine and Metamizole may falsely depress this assay.Serum Triglycerides Reference Interval Normal <150 mg/dL Borderline high 150 - 199 mg/dL High 200 - 499 mg/dL Very High > or = 500 mg/dL Laboratory - Chemistry and C hemistry - challengeOrdered By: Bella Irving on 07-09-2023 ALT [Catalytic activity/Vol] 29 U/L 13-56 [facility] Cholesterol in HDL [Mass/Vol] 45 mg/dL >40 [facility] Comment on above: The drugs N-Acetylcy steine and Metamizole may falsely depress this assay. Reference Range HDL <40 mg/dL Low HDL Cholesterol HDL >or= 60 mg/dL High HDL Cholesterol Cholesterol in LDL [Mass/Vol] 141 mg/dL 0-130 [facility] CK [Catalytic activity/Vol] 43 U/L 26-192 [facility] No Panel InformationOrdered By: Bella Irving on 07-09-2023 VLDL Cholesterol 63 mg/dL 5-40 [facility] Thin prep Papanicolaou smear with manual screeningOrdered By: Bella Irving on 07-09-2023 Thin prep Papanicolaou smear with manual screening 23 U/L 15-37 [facility] Basophil percentageOrdered B y: Kendal Hoffmann on 05-13-2023 Bilirubin [Mass/Vol] 0.70 mg/dL 0.20-1.00 [facility] Comment on above: For patients on eltr ombopag therapy, use of Dimension [place] TBIL is not recommended. Chloride [Moles/Vol] 110 mmol/L 98-107 [facility] Glucose [Mass/Vol] 102 mg/dL 74-106 [facility] Comment on above: Fasting Glucose resu lt from 100 to 125 mg/dL suggests IMPAIRED HOMEOSTASIS per A.D.A. criteria. Hemoglobin (Bld) [Mass/Vol] 12.3 g/dL 12.0-15.0 [facility] Potassium [Moles/Vol] 3.9 mmol/L 3.5-5.1 [facility] Protein [Mass/Vol] 6.2 g/dL 6.4-8.2 [facility] Sodium [Moles/Vol] 140 mmol/L 136-145 [facility] WBC (Bld) [#/Vol] 7.4 10*3/uL 4.4-11.0 [facility] Determination of erythrocyte mean corpuscular volume (MCV)Ordered By: [facility] Shun on 05-13-2023 MCV (RBC) [Entitic vol] 90.8 fL 81-99 [facility] Erythrocyte distribution wid th ratioOrdered By: [facility] on 05-13-2023 Erythrocyte distribution width (RBC) [Ratio] 13.1 % 11.6-14.6 [facility] Erythrocyte distribution wid th standard deviationOrdered By: [facility] Erythrocyte distribution width (RBC) [Entitic vol] 43.2 fL 35.1-43.9 [facility] Hematocrit Auto (Bld) [Volum e fraction]Ordered By: [facility] on 05-13-2023 Hematocrit (Bld) [Volume fraction] 36.7 % 37-47 [facility] - Chemistry and C hemistry - challengeOrdered By: [facility]23 Albumin/Globulin [Mass ratio] 1.2 {ratio} 0.9-2.4 [facility] ALP [Catalytic activity/Vol] 88 U/L 45-117 [facility] ALT [Catalytic activity/Vol] 22 U/L 13-56 [facility] CO2 [Moles/Vol] 22.0 mmol/L 21.0-32.0 [facility] Globulin (S) [Mass/Vol] 2.8 g/dL 2.2-4.2 [facility] Urea nitrogen/Creatinine [Mass ratio] 20.0 mg/mg 10-20 [facility] - Hematology and Cell countsOrdered By: [facility] Shun on 05-13-2023 MCH (RBC) [Entitic mass] 30.4 pg 27.0-32.0 [facility] MCHC (RBC) [Mass/Vol] 33.5 g/dL 32-36 [facility] Platelets (Bld) [#/Vol] 192 10*3/uL 150-450 [facility] No Panel InformationOrdered By: Kendal Hoffmann on 05-13-2023 Estimated Creatinine Clearance Calc 55.40 ml/min [facility] Estimated GFR (MDRD) Amer 96 mL/min >60 [facility] Comment on above: GFR Calc Estimated GFR (MDRD) Non-Af Amer 79 mL/min >60 [facility] Comment on above: Non- GFR Calc Platelet mean volume Jan-Ec ker (Bld) [Entitic vol]Ordered By: eKndal Hoffmann on 05-13-2023 Platelet mean volume (Bld) [Entitic vol] 8.9 fL 6.2-12.0 [facility] RBC Auto (Bld) [#/Vol]Ordere d By: Kendal Hoffmann on 05-13-2023 RBC (Bld) [#/Vol] 4.04 10*6/uL 4.2-5.4 [facility] Serum or plasma calcium idris urement (mass/volume)Ordered By: Kendal Hoffmann on 05-13-2023 Calcium [Mass/Vol] 8.4 mg/dL 8.5-10.1 [facility] Serum or plasma creatinine m easurement (mass/volume)Ordered By: Kendal Hoffmann on 05-13-2023 Creatinine [Mass/Vol] 0.75 mg/dL 0.55-1.02 [facility] Comment on above: The validity of the calculated GFR & GFRAA in patients over 70 years has not been determined. Clinical correlation is essential. Serum or plasma urea nitroge n measurement (mass/volume)Ordered By: Kendal Hoffmann on 05-13-2023 Urea nitrogen [Mass/Vol] 15 mg/dL - [facility] Thin prep Papanicolaou smear with manual screeningOrdered By: Kendal Hoffmann on 05-13-2023 Thin prep Papanicolaou smear with manual screening 3.4 g/dL 3.2-5.0 [facility] Thin prep Papanicolaou smear with manual screening 26 U/L 15-37 [facility] Thin prep Papanicolaou smear with manual screening 8 5-15 [facility] No Panel InformationOrdered By: Kendal Hoffmann on 05-12-2023 Activated Clotting Time 249 sec 74-137 [facility] Absolute lymphocyte countOrd ered By: Aiden Galan on 04-23-2023 Lymphocytes Auto (Unsp spec) [#/Vol] 1.82 10*3/uL 0.83-4.51 [facility] Basophil percentageOrdered B y: Aiden Galan on 04-23-2023 Basophils/100 WBC (Bld) 1.1 % 0-1 [facility] Chloride [Moles/Vol] 108 mmol/L 98-107 [facility] Eosinophils/100 WBC (Bld) 2.5 % 0-5 [facility] Glucose [Mass/Vol] 97 mg/dL 74-106 [facility] Neutrophils (Bld) [#/Vol] 3.8 10*3/uL 2.0-7.7 [facility] Neutrophils/100 WBC (Bld) 59.9 % 47-70 [facility] Potassium [Moles/Vol] 4.4 mmol/L 3.5-5.1 [facility] Sodium [Moles/Vol] 139 mmol/L 136-145 [facility] WBC (Bld) [#/Vol] 6.4 10*3/uL 4.4-11.0 [facility] Blood erythrocytes count (nu mber/volume)Ordered By: Aiden Galan on 04-23-2023 RBC (Bld) [#/Vol] 4.17 10*6/uL 4.2-5.4 [facility] Blood hemoglobin measurement (mass/volume)Ordered By: Aiden Galan on 04-23-2023 Hemoglobin (Bld) [Mass/Vol] 12.6 g/dL 12.0-15.0 [facility] Blood lymphocytes/100 leukoc ytesOrdered By: Aiden Galan on 04-23-2023 Lymphocytes/100 WBC (Bld) 28.7 % 19-41 [facility] Blood monocytes/100 leukocyt esOrdered By: Aiden Galan on 04-23-2023 Monocytes/100 WBC (Bld) 7.2 % 0-10 [facility] Blood platelet mean volumeOr dered By: Aiden Galan on 04-23-2023 Platelet mean volume (Bld) [Entitic vol] 9.0 fL 6.2-12.0 [facility] Determination of erythrocyte mean corpuscular volume (MCV)Ordered By: Aiden Galan on 04-23-2023 MCV (RBC) [Entitic vol] 92.3 fL 81-99 [facility] Hematocrit Auto (Bld) [Volum e fraction]Ordered By: Aiden Galan on 04-23-2023 Hematocrit (Bld) [Volume fraction] 38.5 % 37-47 [facility] - Chemistry and C hemistry - challengeOrdered By: Aiden Galan on 04-23-2023 CO2 [Moles/Vol] 27.0 mmol/L 21.0-32.0 [facility] Urea nitrogen/Creatinine [Mass ratio] 19.1 mg/mg 10-20 [facility] - Hematology and Cell countsOrdered By: Aiden Galan on 04-23-2023 Erythrocyte distribution width (RBC) [Entitic vol] 46.5 fL 35.1-43.9 [facility] Erythrocyte distribution width (RBC) [Ratio] 13.6 % 11.6-14.6 [facility] Immature granulocytes/100 WBC (Bld) 0.600 % 0.0-0.9 [facility] Comment on above: IG% - Immature Granu locytes (promyelocytes, myelocytes and metamyelocytes) > 1% indicates that a LEFT SHIFT is Present. MCH (RBC) [Entitic mass] 30.2 pg 27.0-32.0 [facility] Nucleated RBC/100 WBC (Bld) [Ratio] 0 % 0-5 [facility] MCHC Auto (RBC) [Mass/Vol]Or dered By: Aiden Galan on 04-23-2023 MCHC (RBC) [Mass/Vol] 32.7 g/dL 32-36 [facility] No Panel InformationOrdered By: Aiden Galan on 04-23-2023 Estimated GFR (MDRD) Amer 84 mL/min >60 [facility] Comment on above: GFR Calc Estimated GFR (MDRD) Non-Af Amer 70 mL/min >60 [facility] Comment on above: Non- GFR Calc Platelets bldOrdered By: Chito Galan on 04-23-2023 Platelets (Bld) [#/Vol] 272 10*3/uL 150-450 [facility] Serum or plasma calcium idris urement (mass/volume)Ordered By: Aiden Galan on 04-23-2023 Calcium [Mass/Vol] 9.3 mg/dL 8.5-10.1 [facility] Serum or plasma creatinine m easurement (mass/volume)Ordered By: Aiden Galan on 04-23-2023 Creatinine [Mass/Vol] 0.84 mg/dL 0.55-1.02 [facility] Comment on above: The validity of the calculated GFR & GFRAA in patients over 70 years has not been determined. Clinical correlation is essential. Serum or plasma urea nitroge n measurement (mass/volume)Ordered By: Aiden Galan on 04-23-2023 Urea nitrogen [Mass/Vol] 16 mg/dL 7-18 [facility] Thin prep Papanicolaou smear with manual screeningOrdered By: Aiden Galan on 04-23-2023 Thin prep Papanicolaou smear with manual screening 4 5-15 [facility] Basophil percentageOrdered B y: Kendal Hoffmann on 03-13-2023 Bilirubin [Mass/Vol] 0.50 mg/dL 0.20-1.00 [facility] Comment on above: For patients on eltr ombopag therapy, use of Dimension [place] TBIL is not recommended. Chloride [Moles/Vol] 112 mmol/L 98-107 [facility] Glucose [Mass/Vol] 98 mg/dL 74-106 [facility] Potassium [Moles/Vol] 3.7 mmol/L 3.5-5.1 [facility] Protein [Mass/Vol] 6.3 g/dL 6.4-8.2 [facility] Sodium [Moles/Vol] 139 mmol/L 136-145 [facility] WBC (Bld) [#/Vol] 7.4 10*3/uL 4.4-11.0 [facility] Blood erythrocytes count (nu mber/volume)Ordered By: Kendal Hoffmann on 03-13-2023 RBC (Bld) [#/Vol] 4.19 10*6/uL 4.2-5.4 [facility] Blood hemoglobin measurement (mass/volume)Ordered By: [facility] Shun on 03-13-2023 Hemoglobin (Bld) [Mass/Vol] 13.1 g/dL 12.0-15.0 [facility] Blood platelet mean volumeOr dered By: [facility] Shun on 03-13-2023 Platelet mean volume (Bld) [Entitic vol] 9.0 fL 6.2-12.0 [facility] Determination of erythrocyte mean corpuscular volume (MCV)Ordered By: [facility] Shun on 03-13-2023 MCV (RBC) [Entitic vol] 90.2 fL 81-99 [facility] Hematocrit Auto (Bld) [Volum e fraction]Or[facility]: [facility]23 Hematocrit (Bld) [Volume fraction] 37.8 % 37-47 [facility] - Chemistry and C hemistry - challengeOrdered By: [facility] 03-13-2023 ALP [Catalytic activity/Vol] 81 U/L 45-117 [facility] ALT [Catalytic activity/Vol] 23 U/L 13-56 [facility] CO2 [Moles/Vol] 21.0 mmol/L 21.0-32.0 [facility] Globulin (S) [Mass/Vol] 3.1 g/dL 2.2-4.2 [facility] Urea nitrogen/Creatinine [Mass ratio] 13.8 mg/mg 10-20 [facility] - Hematology and Cell countsOrdered By: [facility] 03-[facility]23 Erythrocyte distribution width (RBC) [Entitic vol] 44.0 fL 35.1-43.9 [facility] Erythrocyte distribution width (RBC) [Ratio] 13.4 % 11.6-14.6 [facility] MCH (RBC) [Entitic mass] 31.3 pg 27.0-32.0 [facility] MCHC Auto (RBC) [Mass/Vol]Or dered By: [facility] Shun on 03-13-2023 MCHC (RBC) [Mass/Vol] 34.7 g/dL 32-36 [facility] Comment on above: Delta: 32.6 on 03/12 No Panel InformationOrdered By: Kendal Hoffmann on 03-13-2023 Estimated Creatinine Clearance Calc 45.10 ml/min [facility] Estimated GFR (MDRD) Amer 89 mL/min >60 [facility] Comment on above: GFR Calc Estimated GFR (MDRD) Non-Af Amer 74 mL/min >60 [facility] Comment on above: Non- GFR Calc Platelets bldOrdered By: Maury Hoffmann on 03-13-2023 Platelets (Bld) [#/Vol] 205 10*3/uL 150-450 [facility] Serum or plasma albumin idris urement (mass/volume)Ordered By: Kendal Hoffmann on 03-13-2023 Albumin [Mass/Vol] 3.2 g/dL 3.2-5.0 [facility] Serum or plasma albumin/glob ulin mass ratioOrdered By: [facility] Hoff[facility] on 03-13-2023 Albumin/Globulin [Mass ratio] 1.0 {ratio} 0.9-2.4 [facility] Serum or plasma calcium idris urement (mass/volume)Ordered By: Kendal Hoffmann on 03-13-2023 Calcium [Mass/Vol] 8.3 mg/dL 8.5-10.1 [facility] Serum or plasma creatinine m easurement (mass/volume)Ordered By: Kendal Hoffmann on 03-13-2023 Creatinine [Mass/Vol] 0.80 mg/dL 0.55-1.02 [facility] Comment on above: The validity of the calculated GFR & GFRAA in patients over 70 years has not been determined. Clinical correlation is essential. Serum or plasma urea nitroge n measurement (mass/volume)Ordered By: Kendal Hoffmann on 03-13-2023 Urea nitrogen [Mass/Vol] 11 mg/dL -18 [facility] Thin prep Papanicolaou smear with manual screeningOrdered By: Kendal Hoffmann on 03-13-2023 Thin prep Papanicolaou smear with manual screening 46 U/L 15-37 [facility] Thin prep Papanicolaou smear with manual screening 6 5-15 [facility] Absolute lymphocyte countOrd ered By: ED PROVIDER on 03-12-2023 Lymphocytes Auto (Unsp spec) [#/Vol] 1.92 10*3/uL 0.83-4.51 [facility] Basophil percentageOrdered B y: Lynne Tabares on 03-12-2023 Cholesterol [Mass/Vol] 132 mg/dL <200 [facility] Comment on above: <200 mg/dL Desirable 200-240 mg/dL Borderline >240 mg/dL High Risk Triglyceride [Mass/Vol] 101 mg/dL <199 [facility] Comment on above: The drugs N-Acetylcy steine and Metamizole may falsely depress this assay.Serum Triglycerides Reference Interval Normal <150 mg/dL Borderline high 150 - 199 mg/dL High 200 - 499 mg/dL Very High > or = 500 mg/dL Basophil percentageOrdered B y: ED PROVIDER on 03-12-2023 Basophils/100 WBC (Bld) 1.4 % 0-1 [facility] Chloride [Moles/Vol] 109 mmol/L 98-107 [facility] Eosinophils/100 WBC (Bld) 2.3 % 0-5 [facility] Glucose [Mass/Vol] 124 mg/dL 74-106 [facility] Comment on above: Fasting Glucose resu lt from 100 to 125 mg/dL suggests IMPAIRED HOMEOSTASIS per A.D.A. criteria. Neutrophils (Bld) [#/Vol] 4.3 10*3/uL 2.0-7.7 [facility] Neutrophils/100 WBC (Bld) 60.3 % 47-70 [facility] Potassium [Moles/Vol] 4.0 mmol/L 3.5-5.1 [facility] Comment on above: Slight Hemolysis, Re sult may be falsely increased. Sodium [Moles/Vol] 140 mmol/L 136-145 [facility] WBC (Bld) [#/Vol] 7.1 10*3/uL 4.4-11.0 [facility] Blood erythrocytes count (nu mber/volume)Ordered By: ED PROVIDER on 03-12-2023 RBC (Bld) [#/Vol] 4.42 10*6/uL 4.2-5.4 [facility] Blood hemoglobin measurement (mass/volume)Ordered By: ED PROVIDER on 03-12-2023 Hemoglobin (Bld) [Mass/Vol] 13.2 g/dL 12.0-15.0 [facility] Blood lymphocytes/100 leukoc ytesOrdered By: ED PROVIDER on 03-12-2023 Lymphocytes/100 WBC (Bld) 27.0 % 19-41 [facility] Blood monocytes/100 leukocyt esOrdered By: ED PROVIDER on 03-12-2023 Monocytes/100 WBC (Bld) 8.2 % 0-10 [facility] Blood platelet mean volumeOr dered By: ED PROVIDER on 03-12-2023 Platelet mean volume (Bld) [Entitic vol] 9.1 fL 6.2-12.0 [facility] Determination of erythrocyte mean corpuscular volume (MCV)Ordered By: ED PROVIDER on 03-12-2023 MCV (RBC) [Entitic vol] 90.3 fL 81-99 [facility] Hematocrit Auto (Bld) [Volum e fraction]Ordered By: ED PROVIDER on 03-12-2023 Hematocrit (Bld) [Volume fraction] 39.9 % 37-47 [facility] INR in Blood by Coagulation assayOrdered By: Martin Wilkins on 03-12-2023 INR Coag (Bld) [Relative time] 0.9 {INR} [facility] - Chemistry and C hemistry - challengeOrdered By: ED PROVIDER on 03-12-2023 CO2 [Moles/Vol] 23.0 mmol/L 21.0-32.0 [facility] Urea nitrogen/Creatinine [Mass ratio] 26.5 mg/mg 10-20 [facility] - CoagulationOrde red By: Martin Wilkins on 03-12-2023 aPTT Coag (Bld) [Time] 29.2 s 24.1-36.2 [facility] PT Coag (PPP) [Time] 12.0 s 11.7-14.9 [facility] - Hematology and Cell countsOrdered By: ED PROVIDER on 03-12-2023 Erythrocyte distribution width (RBC) [Entitic vol] 44.1 fL 35.1-43.9 [facility] Erythrocyte distribution width (RBC) [Ratio] 13.4 % 11.6-14.6 [facility] Immature granulocytes/100 WBC (Bld) 0.800 % 0.0-0.9 [facility] Comment on above: IG% - Immature Granu locytes (promyelocytes, myelocytes and metamyelocytes) > 1% indicates that a LEFT SHIFT is Present. MCH (RBC) [Entitic mass] 29.9 pg 27.0-32.0 [facility] Nucleated RBC/100 WBC (Bld) [Ratio] 0 % 0-5 [facility] MCHC Auto (RBC) [Mass/Vol]Or dered By: ED PROVIDER on 03-12-2023 MCHC (RBC) [Mass/Vol] 33.1 g/dL 32-36 [facility] No Panel InformationOrdered By: Alfonso Anderson on 03-12-2023 Activated Clotting Time 311 sec 74-137 [facility] No Panel InformationOrdered By: Lynne Tabares on 03-12-2023 Thyroid Stimulating Hormone (TSH) 3.89 uIU/mL 0.358-3.74 [facility] No Panel InformationOrdered By: ED PROVIDER on 03-12-2023 Troponin I High Sensitivity 400 pg/mL 3.0-54.0 [facility] Comment on above: Critical Result(s) C alled at: 03:48:01 03/12/2023 by: JOSE ARMANDO Tidwell REPRODUCTIVE ENDOCRINOLOGIST. Results read back by same. Please Note: New Test Units and Gender Specific Reference Ranges. For more information see Policy Stat Procedure [place] High Sensitivity Troponin (TNIH) and attachments. Estimated Creatinine Clearance Calc 39.65 ml/min [facility] Estimated GFR (MDRD) Amer 77 mL/min >60 [facility] Comment on above: GFR Calc Estimated GFR (MDRD) Non-Af Amer 64 mL/min >60 [facility] Comment on above: Non- GFR Calc No Panel InformationOrdered By: Martin Wilkins on 03-12-2023 D-Dimer Quantitative (PE/DVT) 0.37 FEU/ug/m 0.27-0.49 [facility] Comment on above: NORMAL D-Dimer level (<0.50) indicates no DVT or PE. Platelets bldOrdered By: ED PROVIDER on 03-12-2023 Platelets (Bld) [#/Vol] 239 10*3/uL 150-450 [facility] Serum or plasma calcium idris urement (mass/volume)Ordered By: ED PROVIDER on 03-12-2023 Calcium [Mass/Vol] 8.9 mg/dL 8.5-10.1 [facility] Serum or plasma cholesterol in HDL measurement (mass/volume)Ordered By: Lynne Tabares on 03-12-2023 Cholesterol in HDL [Mass/Vol] 47 mg/dL >40 [facility] Comment on above: The drugs N-Acetylcy steine and Metamizole may falsely depress this assay. Reference Range HDL <40 mg/dL Low HDL Cholesterol HDL >or= 60 mg/dL High HDL Cholesterol Serum or plasma cholesterol in VLDL measurement (mass/volume)Ordered By: Lynne Tabares on 03-12-2023 Cholesterol in VLDL [Mass/Vol] 20 mg/dL 5-40 [facility] Serum or plasma creatinine m easurement (mass/volume)Ordered By: ED PROVIDER on 03-12-2023 Creatinine [Mass/Vol] 0.91 mg/dL 0.55-1.02 [facility] Comment on above: The validity of the calculated GFR & GFRAA in patients over 70 years has not been determined. Clinical correlation is essential. Serum or plasma low density lipoprotein (LDL) cholesterol measurement (mass/volume)Ordered By: Lynne Tabares on 03-12-2023 Cholesterol in LDL [Mass/Vol] 65 mg/dL 0-130 [facility] Serum or plasma urea nitroge n measurement (mass/volume)Ordered By: ED PROVIDER on 03-12-2023 Urea nitrogen [Mass/Vol] 24 mg/dL 7-18 [facility] Thin prep Papanicolaou smear with manual screeningOrdered By: ED PROVIDER on 03-12-2023 Thin prep Papanicolaou smear with manual screening 8 5-15 [facility] Absolute lymphocyte countOrd ered By: Elis Cardenas on 01-13-2023 Lymphocytes Auto (Unsp spec) [#/Vol] 1.58 10*3/uL 0.83-4.51 [facility] Basophil percentageOrdered B y: Elis Cardenas on 01-13-2023 Basophils/100 WBC (Bld) 1.6 % 0-1 [facility] Bilirubin [Mass/Vol] 0.50 mg/dL 0.20-1.00 [facility] Comment on above: For patients on eltr ombopag therapy, use of Dimension [place] TBIL is not recommended. Chloride [Moles/Vol] 109 mmol/L 98-107 [facility] Cholesterol [Mass/Vol] 262 mg/dL <200 [facility] Comment on above: <200 mg/dL Desirable 200-240 mg/dL Borderline >240 mg/dL High Risk Eosinophils/100 WBC (Bld) 3.9 % 0-5 [facility] Glucose [Mass/Vol] 102 mg/dL 74-106 [facility] Comment on above: Fasting Glucose resu lt from 100 to 125 mg/dL suggests IMPAIRED HOMEOSTASIS per A.D.A. criteria. Neutrophils (Bld) [#/Vol] 3.3 10*3/uL 2.0-7.7 [facility] Neutrophils/100 WBC (Bld) 57.9 % 47-70 [facility] Potassium [Moles/Vol] 4.4 mmol/L 3.5-5.1 [facility] Protein [Mass/Vol] 6.8 g/dL 6.4-8.2 [facility] Sodium [Moles/Vol] 138 mmol/L 136-145 [facility] Triglyceride [Mass/Vol] 381 mg/dL <199 [facility] Comment on above: The drugs N-Acetylcy steine and Metamizole may falsely depress this assay.Serum Triglycerides Reference Interval Normal <150 mg/dL Borderline high 150 - 199 mg/dL High 200 - 499 mg/dL Very High > or = 500 mg/dL WBC (Bld) [#/Vol] 5.6 10*3/uL 4.4-11.0 [facility] Blood erythrocytes count (nu mber/volume)Ordered By: Elis Cardenas on 01-13-2023 RBC (Bld) [#/Vol] 4.44 10*6/uL 4.2-5.4 [facility] Blood hemoglobin measurement (mass/volume)Ordered By: Elis Cardenas on 01-13-2023 Hemoglobin (Bld) [Mass/Vol] 13.8 g/dL 12.0-15.0 [facility] Blood lymphocytes/100 leukoc ytesOrdered By: Elis Cardenas on 01-13-2023 Lymphocytes/100 WBC (Bld) 28.1 % 19-41 [facility] Blood monocytes/100 leukocyt esOrdered By: Elis Cardenas on 01-13-2023 Monocytes/100 WBC (Bld) 8.0 % 0-10 [facility] Blood platelet mean volumeOr dered By: Elis Cardenas on 01-13-2023 Platelet mean volume (Bld) [Entitic vol] 9.8 fL 6.2-12.0 [facility] Determination of erythrocyte mean corpuscular volume (MCV)Ordered By: Elis Cardenas on 01-13-2023 MCV (RBC) [Entitic vol] 91.4 fL 81-99 [facility] Hematocrit Auto (Bld) [Volum e fraction]Ordered By: Elis Cardenas on 01-13-2023 Hematocrit (Bld) [Volume fraction] 40.6 % 37-47 [facility] - Chemistry and C hemistry - challengeOrdered By: Elis Cardenas on 01-13-2023 ALP [Catalytic activity/Vol] 75 U/L 45-117 [facility] ALT [Catalytic activity/Vol] 24 U/L 13-56 [facility] CO2 [Moles/Vol] 24.0 mmol/L 21.0-32.0 [facility] Free T4 [Mass/Vol] 1.40 ng/dL 0.76-1.46 [facility] Globulin (S) [Mass/Vol] 3.3 g/dL 2.2-4.2 [facility] Urea nitrogen/Creatinine [Mass ratio] 21.1 mg/mg 10-20 [facility] - Hematology and Cell countsOrdered By: Elis Cardenas on 01-13-2023 Erythrocyte distribution width (RBC) [Entitic vol] 42.5 fL 35.1-43.9 [facility] Erythrocyte distribution width (RBC) [Ratio] 12.8 % 11.6-14.6 [facility] Immature granulocytes/100 WBC (Bld) 0.500 % 0.0-0.9 [facility] Comment on above: IG% - Immature Granu locytes (promyelocytes, myelocytes and metamyelocytes) > 1% indicates that a LEFT SHIFT is Present. MCH (RBC) [Entitic mass] 31.1 pg 27.0-32.0 [facility] Nucleated RBC/100 WBC (Bld) [Ratio] 0 % 0-5 [facility] MCHC Auto (RBC) [Mass/Vol]Or dered By: Elis Cardenas on 01-13-2023 MCHC (RBC) [Mass/Vol] 34.0 g/dL 32-36 [facility] No Panel InformationOrdered By: Elis Cardenas on 01-13-2023 Estimated GFR (MDRD) Amer 69 mL/min >60 [facility] Comment on above: GFR Calc Estimated GFR (MDRD) Non-Af Amer 57 mL/min >60 [facility] Comment on above: Non- GFR Calc Free Triiodothyronine (T3) pg/dL 2.3 pg/mL 2.18-3.98 [facility] Thyroid Stimulating Hormone (TSH) 3.81 uIU/mL 0.358-3.74 [facility] Platelets bldOrdered By: Camila Cardenas on 01-13-2023 Platelets (Bld) [#/Vol] 147 10*3/uL 150-450 [facility] Serum or plasma albumin idris urement (mass/volume)Ordered By: Elis Cardenas on 01-13-2023 Albumin [Mass/Vol] 3.5 g/dL 3.2-5.0 [facility] Serum or plasma albumin/glob ulin mass ratioOrdered By: Elis Cardenas on 01-13-2023 Albumin/Globulin [Mass ratio] 1.1 {ratio} 0.9-2.4 [facility] Serum or plasma calcium idris urement (mass/volume)Ordered By: Elis Cardenas on 01-13-2023 Calcium [Mass/Vol] 9.1 mg/dL 8.5-10.1 [facility] Serum or plasma cholesterol in HDL measurement (mass/volume)Ordered By: Elis Cardenas on 01-13-2023 Cholesterol in HDL [Mass/Vol] 44 mg/dL >40 [facility] Comment on above: The drugs N-Acetylcy steine and Metamizole may falsely depress this assay. Reference Range HDL <40 mg/dL Low HDL Cholesterol HDL >or= 60 mg/dL High HDL Cholesterol Serum or plasma cholesterol in VLDL measurement (mass/volume)Ordered By: Elis Cardenas on 01-13-2023 Cholesterol in VLDL [Mass/Vol] 76 mg/dL 5-40 [facility] Serum or plasma creatinine m easurement (mass/volume)Ordered By: Elis Cardenas on 01-13-2023 Creatinine [Mass/Vol] 0.99 mg/dL 0.55-1.02 [facility] Comment on above: The validity of the calculated GFR & GFRAA in patients over 70 years has not been determined. Clinical correlation is essential. Serum or plasma low density lipoprotein (LDL) cholesterol measurement (mass/volume)Ordered By: Elis Cardenas on 01-13-2023 Cholesterol in LDL [Mass/Vol] 142 mg/dL 0-130 [facility] Serum or plasma urea nitroge n measurement (mass/volume)Ordered By: Elis Cardenas on 01-13-2023 Urea nitrogen [Mass/Vol] 21 mg/dL 7-18 [facility] Thin prep Papanicolaou smear with manual screeningOrdered By: Elis Cardenas on 01-13-2023 Thin prep Papanicolaou smear with manual screening 13 U/L 15-37 [facility] Thin prep Papanicolaou smear with manual screening 5 5-15 [facility] - Chemistry and C hemistry - challengeOrdered By: Elis Cardenas on 11-11-2022 Free T4 [Mass/Vol] 1.37 ng/dL 0.76-1.46 [facility] No Panel InformationOrdered By: Elis Cardenas on 11-11-2022 Free Triiodothyronine (T3) pg/dL 1.9 pg/mL 2.18-3.98 [facility] Thyroid Stimulating Hormone (TSH) 3.42 uIU/mL 0.358-3.74 [facility] Absolute lymphocyte countOrd ered By: Afua Anderson on 10-21-2022 Lymphocytes Auto (Unsp spec) [#/Vol] 1.85 10*3/uL 0.83-4.51 [facility] Basophil percentageOrdered B y: Afua Anderson on 10-21-2022 Basophils/100 WBC (Bld) 1.2 % 0-1 [facility] Chloride [Moles/Vol] 108 mmol/L 98-107 [facility] Eosinophils/100 WBC (Bld) 3.8 % 0-5 [facility] Glucose [Mass/Vol] 122 mg/dL 74-106 [facility] Comment on above: Fasting Glucose resu lt from 100 to 125 mg/dL suggests IMPAIRED HOMEOSTASIS per A.D.A. criteria. Neutrophils (Bld) [#/Vol] 4.0 10*3/uL 2.0-7.7 [facility] Neutrophils/100 WBC (Bld) 58.4 % 47-70 [facility] Potassium [Moles/Vol] 3.9 mmol/L 3.5-5.1 [facility] Sodium [Moles/Vol] 137 mmol/L 136-145 [facility] WBC (Bld) [#/Vol] 6.8 10*3/uL 4.4-11.0 [facility] Blood erythrocytes count (nu mber/volume)Ordered By: Afua Anderson on 10-21-2022 RBC (Bld) [#/Vol] 4.43 10*6/uL 4.2-5.4 [facility] Blood hemoglobin measurement (mass/volume)Ordered By: Afua Anderson on 10-21-2022 Hemoglobin (Bld) [Mass/Vol] 13.7 g/dL 12.0-15.0 [facility] Blood lymphocytes/100 leukoc ytesOrdered By: Afua Anderson on 10-21-2022 Lymphocytes/100 WBC (Bld) 27.2 % 19-41 [facility] Blood monocytes/100 leukocyt esOrdered By: Afua Anderson on 10-21-2022 Monocytes/100 WBC (Bld) 8.7 % 0-10 [facility] Blood platelet mean volumeOr dered By: Afua Anderson on 10-21-2022 Platelet mean volume (Bld) [Entitic vol] 9.4 fL 6.2-12.0 [facility] Determination of erythrocyte mean corpuscular volume (MCV)Ordered By: Afua Anderson on 10-21-2022 MCV (RBC) [Entitic vol] 90.1 fL 81-99 [facility] Glucose Glucometer (BldC) [M ass/Vol]Ordered By: Afua Anderson on 10-21-2022 Glucose [Mass/Vol] 123 mg/dL 74-106 [facility] Comment on above: MANAGEMENT OF PATIEN T CARE PER NURSING PROTOCOL Hematocrit Auto (Bld) [Volum e fraction]Ordered By: Afua Anderson on 10-21-2022 Hematocrit (Bld) [Volume fraction] 39.9 % 37-47 [facility] - Chemistry and C hemistry - challengeOrdered By: Afua Anderson on 10-21-2022 CO2 [Moles/Vol] 23.0 mmol/L 21.0-32.0 [facility] Urea nitrogen/Creatinine [Mass ratio] 25.6 mg/mg 10-20 [facility] - Hematology and Cell countsOrdered By: Afua Anderson on 10-21-2022 Erythrocyte distribution width (RBC) [Entitic vol] 43.1 fL 35.1-43.9 [facility] Erythrocyte distribution width (RBC) [Ratio] 13.2 % 11.6-14.6 [facility] Immature granulocytes/100 WBC (Bld) 0.700 % 0.0-0.9 [facility] Comment on above: IG% - Immature Granu locytes (promyelocytes, myelocytes and metamyelocytes) > 1% indicates that a LEFT SHIFT is Present. MCH (RBC) [Entitic mass] 30.9 pg 27.0-32.0 [facility] Nucleated RBC/100 WBC (Bld) [Ratio] 0 % 0-5 [facility] MCHC Auto (RBC) [Mass/Vol]Or dered By: Afua Anderson on 10-21-2022 MCHC (RBC) [Mass/Vol] 34.3 g/dL 32-36 [facility] No Panel InformationOrdered By: Afua Anderson on 10-21-2022 Estimated GFR (MDRD) Amer 78 mL/min >60 [facility] Comment on above: GFR Calc Estimated GFR (MDRD) Non-Af Amer 64 mL/min >60 [facility] Comment on above: Non- GFR Calc Troponin I High Sensitivity 4 pg/mL 3.0-54.0 [facility] Comment on above: Please Note: [place] t Units and Gender Specific Reference Ranges. For more information see Policy Stat Procedure [place] High Sensitivity Troponin (TNIH) and attachments. Platelets bldOrdered By: Soni Anderson on 10-21-2022 Platelets (Bld) [#/Vol] 235 10*3/uL 150-450 [facility] Serum or plasma calcium idris urement (mass/volume)Ordered By: Afua Anderson on 10-21-2022 Calcium [Mass/Vol] 9.0 mg/dL 8.5-10.1 [facility] Serum or plasma creatinine m easurement (mass/volume)Ordered By: Afua Anderson on 10-21-2022 Creatinine [Mass/Vol] 0.90 mg/dL 0.55-1.02 [facility] Comment on above: The validity of the calculated GFR & GFRAA in patients over 70 years has not been determined. Clinical correlation is essential. Serum or plasma urea nitroge n measurement (mass/volume)Ordered By: Afua Anderson on 10-21-2022 Urea nitrogen [Mass/Vol] 23 mg/dL 7-18 [facility] Thin prep Papanicolaou smear with manual screeningOrdered By: Afua Anderson on 10-21-2022 Thin prep Papanicolaou smear with manual screening 6 5-15 [facility] Basophil percentageOrdered B y: Dr. Rao on 05-29-2022 WBC (Bld) [#/Vol] 12.2 10*3/uL 4.4-11.0 [facility] Blood erythrocytes count (nu mber/volume)Ordered By: Dr. Rao on 05-29-2022 RBC (Bld) [#/Vol] 3.92 10*6/uL 4.2-5.4 [facility] Blood hemoglobin measurement (mass/volume)Ordered By: Dr. Rao on 05-29-2022 Hemoglobin (Bld) [Mass/Vol] 11.8 g/dL 12.0-15.0 [facility] Blood platelet mean volumeOr dered By: Dr. Rao on 05-29-2022 Platelet mean volume (Bld) [Entitic vol] 9.6 fL 6.2-12.0 [facility] Determination of erythrocyte mean corpuscular volume (MCV)Ordered By: Dr. Rao on 05-29-2022 MCV (RBC) [Entitic vol] 91.8 fL 81-99 [facility] Hematocrit Auto (Bld) [Volum e fraction]Ordered By: Dr. Rao on 05-29-2022 Hematocrit (Bld) [Volume fraction] 36.0 % 37-47 [facility] - Hematology and Cell countsOrdered By: Dr. Rao on 05-29-2022 Erythrocyte distribution width (RBC) [Entitic vol] 44.8 fL 35.1-43.9 [facility] Erythrocyte distribution width (RBC) [Ratio] 13.3 % 11.6-14.6 [facility] MCH (RBC) [Entitic mass] 30.1 pg 27.0-32.0 [facility] MCHC Auto (RBC) [Mass/Vol]Or dered By: Dr. Rao on 05-29-2022 MCHC (RBC) [Mass/Vol] 32.8 g/dL 32-36 [facility] Platelets bldOrdered By: Dr. Rao on 05-29-2022 Platelets (Bld) [#/Vol] 222 10*3/uL 150-450 [facility] Glucose Glucometer (BldC) [M ass/Vol]Ordered By: Dr. Rao on 05-28-2022 Glucose [Mass/Vol] 88 mg/dL 74-106 [facility] Comment on above: MANAGEMENT OF PATIEN T CARE PER NURSING PROTOCOL Laboratory - Chemistry and C hemistry - challengeOrdered By: Dr. Rao on 05-22-2022 Magnesium [Mass/Vol] 2.3 mg/dL 1.6-2.6 [facility] Basophil percentageOrdered B y: Dr. Cardenas on 05-13-2022 Bilirubin [Mass/Vol] 0.60 mg/dL 0.20-1.00 [facility] Comment on above: For patients on eltr ombopag therapy, use of Dimension [place] TBIL is not recommended. Chloride [Moles/Vol] 106 mmol/L 98-107 [facility] Cholesterol [Mass/Vol] 300 mg/dL <200 [facility] Comment on above: <200 mg/dL Desirable 200-240 mg/dL Borderline >240 mg/dL High Risk Glucose [Mass/Vol] 96 mg/dL 74-106 [facility] Potassium [Moles/Vol] 4.3 mmol/L 3.5-5.1 [facility] Protein [Mass/Vol] 7.3 g/dL 6.4-8.2 [facility] Sodium [Moles/Vol] 139 mmol/L 136-145 [facility] Triglyceride [Mass/Vol] 367 mg/dL <199 [facility] Comment on above: The drugs N-Acetylcy steine and Metamizole may falsely depress this assay.Serum Triglycerides Reference Interval Normal <150 mg/dL Borderline high 150 - 199 mg/dL High 200 - 499 mg/dL Very High > or = 500 mg/dL Iron measurement (mass/mass) Ordered By: Dr. Cardenas on 05-13-2022 Iron (Unsp spec) [Mass/Mass] 104 ug/dL 50-170 [facility] - Chemistry and C hemistry - challengeOrdered By: Dr. Cardenas on 05-13-2022 ALP [Catalytic activity/Vol] 75 U/L 45-117 [facility] ALT [Catalytic activity/Vol] 24 U/L 13-56 [facility] CO2 [Moles/Vol] 27.0 mmol/L 21.0-32.0 [facility] Cobalamin (Vitamin B12) [Mass/Vol] 558 pg/mL 211-911 [facility] Free T4 [Mass/Vol] 1.46 ng/dL 0.76-1.46 [facility] Globulin (S) [Mass/Vol] 3.5 g/dL 2.2-4.2 [facility] Urea nitrogen/Creatinine [Mass ratio] 24.3 mg/mg 10-20 [facility] No Panel InformationOrdered By: Dr. Cardenas on 05-13-2022 Estimated GFR (MDRD) Amer 86 mL/min >60 [facility] Comment on above: GFR Calc Estimated GFR (MDRD) Non-Af Amer 71 mL/min >60 [facility] Comment on above: Non- GFR Calc Free Triiodothyronine (T3) pg/dL 2.2 pg/mL 2.18-3.98 [facility] Thyroid Stimulating Hormone (TSH) 4.05 uIU/mL 0.358-3.74 [facility] Vitamin D 25-Hydroxy 36.1 ng/mL [facility] Comment on above: Vitamin D 25(OH) Sta tus Range Deficiency <20 ng/mL (50nmol/L) Insufficiency 20 - 30 ng/mL (50 - 75 nmol/L) Sufficiency 30 - 100 ng/mL (75 - 250 nmol/L) Toxicity >100 ng/mL (>250 nmol/L) Serum or plasma albumin idris urement (mass/volume)Ordered By: Dr. Cardenas on 05-13-2022 Albumin [Mass/Vol] 3.8 g/dL 3.2-5.0 [facility] Serum or plasma albumin/glob ulin mass ratioOrdered By: Dr. Cardenas on 05-13-2022 Albumin/Globulin [Mass ratio] 1.1 {ratio} 0.9-2.4 [facility] Serum or plasma calcium idris urement (mass/volume)Ordered By: Dr. Cardenas on 05-13-2022 Calcium [Mass/Vol] 9.6 mg/dL 8.5-10.1 [facility] Serum or plasma cholesterol in HDL measurement (mass/volume)Ordered By: Dr. Cardenas on 05-13-2022 Cholesterol in HDL [Mass/Vol] 53 mg/dL >40 [facility] Comment on above: The drugs N-Acetylcy steine and Metamizole may falsely depress this assay. Reference Range HDL <40 mg/dL Low HDL Cholesterol HDL >or= 60 mg/dL High HDL Cholesterol Serum or plasma cholesterol in VLDL measurement (mass/volume)Ordered By: Dr. Cardenas on 05-13-2022 Cholesterol in VLDL [Mass/Vol] 73 mg/dL 5-40 [facility] Serum or plasma creatinine m easurement (mass/volume)Ordered By: Dr. Cardenas on 05-13-2022 Creatinine [Mass/Vol] 0.82 mg/dL 0.55-1.02 [facility] Comment on above: The validity of the calculated GFR & GFRAA in patients over 70 years has not been determined. Clinical correlation is essential. Serum or plasma low density lipoprotein (LDL) cholesterol measurement (mass/volume)Ordered By: Dr. Cardenas on 05-13-2022 Cholesterol in LDL [Mass/Vol] 174 mg/dL 0-130 [facility] Serum or plasma urea nitroge n measurement (mass/volume)Ordered By: Dr. Cardenas on 05-13-2022 Urea nitrogen [Mass/Vol] 20 mg/dL 18 [facility] Thin prep Papanicolaou smear with manual screeningOrdered By: Dr. Cardenas on 05-13-2022 Thin prep Papanicolaou smear with manual screening 13 U/L 15-37 [facility] Thin prep Papanicolaou smear with manual screening 6 5-15 [facility] Vital Signs Date Time Vital Sign Value Performing Clinician Faci lity 11-24-2024 13:08-0400 Body temperature 98.5 [degF] Dr. Elis Cardenas DO Work Phone: [facility] 11-24-2024 13:08-0400 Diastolic blood pressure 69 mm[Hg] Dr. Elis Cardenas DO Work Phone: [facility] 11-24-2024 13:08-0400 Heart rate 69 /min Dr. Elis Cardenas DO Work Phone: [facility] 11-24-2024 13:08-0400 Respiratory rate 16 /min Dr. Elis Cardenas DO Work Phone: [facility] 11-24-2024 13:08-0400 SaO2% (BldA) [Mass fraction] 97 % Dr. Elis Cardenas DO Work Phone: [facility] 11-24-2024 13:08-0400 Systolic blood pressure 129 mm[Hg] Dr. Elis Cardenas DO Work Phone: [facility] 11-24-2024 11:02-0400 Body mass index (BMI) [Ratio] 33.5 kg/m2 Dr. Elis Cardenas DO Work Phone: [facility] 11-24-2024 10:01-0400 Body temperature 98.8 [degF] Dr. Elis Cardenas DO Work Phone: [facility] 11-24-2024 10:01-0400 Diastolic blood pressure 49 mm[Hg] Dr. Elis Cardenas DO Work Phone: [facility] 11-24-2024 10:01-0400 Heart rate 63 /min Dr. Elis Cardenas DO Work Phone: [facility] 11-24-2024 10:01-0400 Respiratory rate 16 /min Dr. Elis Cardenas DO Work Phone: [facility] 11-24-2024 10:01-0400 SaO2% (BldA) [Mass fraction] 98 % Dr. Elis Cardenas DO Work Phone: [facility] 11-24-2024 10:01-0400 Systolic blood pressure 136 mm[Hg] Dr. Elis Cardenas DO Work Phone: [facility] 11-23-2024 18:15-0400 Body height 157.[address] Elis Cardenas DO Work Phone: [facility] 11-23-2024 18:15-0400 Body temperature 97.8 [degF] Dr. Elis Cardenas DO Work Phone: [facility] 11-23-2024 18:15-0400 Body weight 83.[address] Elis Cardenas DO Work Phone: [facility] 11-23-2024 18:15-0400 Diastolic blood pressure 57 mm[Hg] Dr. Elis Cardenas DO Work Phone: [facility] 11-23-2024 18:15-0400 Heart rate 59 /min Dr. Elis Cardenas DO Work Phone: [facility] 11-23-2024 18:15-0400 Respiratory rate 14 /min Dr. Elis Cardenas DO Work Phone: [facility] 11-23-2024 18:15-0400 SaO2% (BldA) [Mass fraction] 99 % Dr. Elis Cardenas DO Work Phone: [facility] 11-23-2024 18:15-0400 Systolic blood pressure 134 mm[Hg] Dr. Elis Cardenas DO Work Phone: [facility] 11-23-2024 15:57-0400 Body height 157.[address] Elis Cardenas DO Work Phone: [facility] 11-23-2024 15:57-0400 Body mass index (BMI) [Ratio] 35.7 kg/m2 Dr. Elis Cardenas DO Work Phone: [facility] 11-23-2024 15:57-0400 Body weight 88.[address] Elis Cardenas DO Work Phone: [facility] 10-18-2024 13:17-0400 Body height 157.[address] Elis Cardenas DO Work Phone: [facility] 10-18-2024 13:17-0400 Body mass index (BMI) [Ratio] 32.5 kg/m2 Dr. Elis Cardenas DO Work Phone: [facility] 10-18-2024 13:17-0400 Body temperature 98.3 [degF] Dr. Elis Cardenas DO Work Phone: [facility] 10-18-2024 13:17-0400 Body weight 80.[address] Elis Cardenas DO Work Phone: [facility] 10-18-2024 13:17-0400 Diastolic blood pressure 72 mm[Hg] Dr. Elis Cardenas DO Work Phone: [facility] 10-18-2024 13:17-0400 Heart rate 83 /min Dr. Elis Cardenas DO Work Phone: [facility] 10-18-2024 13:17-0400 Respiratory rate 18 /min Dr. Elis Cardenas DO Work Phone: [facility] 10-18-2024 13:17-0400 SaO2% (BldA) [Mass fraction] 96 % Dr. Elis Cardenas DO Work Phone: [facility] 10-18-2024 13:17-0400 Systolic blood pressure 120 mm[Hg] Dr. Elis Cardenas DO Work Phone: [facility] 09-27-2024 09:02-0400 Body height 157.[address] Elis Cardenas DO Work Phone: [facility] 09-27-2024 09:02-0400 Body mass index (BMI) [Ratio] 30.7 kg/m2 Dr. Elis Cardenas DO Work Phone: [facility] 09-27-2024 09:02-0400 Body weight 76.[address] Elis Cardenas DO Work Phone: [facility] 09-27-2024 09:02-0400 Diastolic blood pressure 69 mm[Hg] Dr. Elis Cardenas DO Work Phone: [facility] 09-27-2024 09:02-0400 Heart rate 60 /min Dr. Elis Cardenas DO Work Phone: [facility] 09-27-2024 09:02-0400 Respiratory rate 16 /min Dr. Elis Cardenas DO Work Phone: [facility] 09-27-2024 09:02-0400 SaO2% (BldA) [Mass fraction] 94 % Dr. Elis Cardenas DO Work Phone: [facility] 09-27-2024 09:02-0400 Systolic blood pressure 114 mm[Hg] Dr. Elis Cardenas DO Work Phone: [facility] 08-24-2024 08:16-0400 Body mass index (BMI) [Ratio] 30.7 kg/m2 Dr. Elis Cardenas DO Work Phone: [facility] 08-24-2024 08:16-0400 Body weight 76.[address] Elis Cardenas DO Work Phone: [facility] 08-24-2024 08:16-0400 Diastolic blood pressure 79 mm[Hg] Dr. Elis Cardenas DO Work Phone: [facility] 08-24-2024 08:16-0400 Heart rate 60 /min Dr. Elis Cardenas DO Work Phone: [facility] 08-24-2024 08:16-0400 Respiratory rate 18 /min Dr. Elis Cardenas DO Work Phone: [facility] 08-24-2024 08:16-0400 Systolic blood pressure 138 mm[Hg] Dr. Elis Cardenas DO Work Phone: [facility] 07-13-2024 14:03-0400 Body temperature 98 [degF] Dr. Elis Cardenas DO Work Phone: [facility] 07-13-2024 14:03-0400 Diastolic blood pressure 70 mm[Hg] Dr. Elis Cardenas DO Work Phone: [facility] 07-13-2024 14:03-0400 Heart rate 73 /min Dr. Elis Cardenas DO Work Phone: [facility] 07-13-2024 14:03-0400 Respiratory rate 16 /min Dr. Elis Cardenas DO Work Phone: [facility] 07-13-2024 14:03-0400 SaO2% (BldA) [Mass fraction] 97 % Dr. Elis Cardneas DO Work Phone: [facility] 07-13-2024 14:03-0400 Systolic blood pressure 132 mm[Hg] Dr. Elis Cardenas DO Work Phone: [facility] 05-16-2024 13:46-0500 Body temperature 98 [degF] Dr. Elis Cardenas DO Work Phone: [facility] 05-16-2024 13:46-0500 Body weight 79.[address] Elis Cardenas DO Work Phone: [facility] 05-16-2024 13:46-0500 Diastolic blood pressure 77 mm[Hg] Dr. Elis Cardenas DO Work Phone: [facility] 05-16-2024 13:46-0500 Heart rate 60 /min Dr. Elis Cardenas DO Work Phone: [facility] 05-16-2024 13:46-0500 Respiratory rate 16 /min Dr. Elis Cardenas DO Work Phone: [facility] 05-16-2024 13:46-0500 SaO2% (BldA) [Mass fraction] 98 % Dr. Elis Cardenas DO Work Phone: [facility] 05-16-2024 13:46-0500 Systolic blood pressure 143 mm[Hg] Dr. Elis Cardenas DO Work Phone: [facility] 04-25-2024 10:16-0500 Body temperature 98 [degF] Dr. Elis Cardenas DO Work Phone: [facility] 04-25-2024 10:16-0500 Diastolic blood pressure 64 mm[Hg] Dr. Elis Cardenas DO Work Phone: [facility] 04-25-2024 10:16-0500 Heart rate 68 /min Dr. Elis Cardenas DO Work Phone: [facility] 04-25-2024 10:16-0500 Respiratory rate 16 /min Dr. Elis Cardenas DO Work Phone: [facility] 04-25-2024 10:16-0500 SaO2% (BldA) [Mass fraction] 97 % Dr. Elis Cardenas DO Work Phone: [facility] 04-25-2024 10:16-0500 Systolic blood pressure 128 mm[Hg] Dr. Elis Cardenas DO Work Phone: [facility] 08-17-2023 10:58-0400 Body height 157.[address] Elis Cardenas Work Phone: [facility] 08-17-2023 10:58-0400 Body mass index (BMI) [Ratio] 29.6 kg/m2 Dr. Elis Cardenas Work Phone: [facility] 08-17-2023 10:58-0400 Body temperature 98.2 [degF] Dr. Elis Cardenas Work Phone: [facility] 08-17-2023 10:58-0400 Body weight 73.[address] Elis Cardenas Work Phone: [facility] 08-17-2023 10:58-0400 Diastolic blood pressure 80 mm[Hg] Dr. Elis Cardenas Work Phone: [facility] 08-17-2023 10:58-0400 Heart rate 66 /min Dr. Elis Cardenas Work Phone: [facility] 08-17-2023 10:58-0400 Respiratory rate 17 /min Dr. Elis Cardenas Work Phone: [facility] 08-17-2023 10:58-0400 SaO2% (BldA) [Mass fraction] 97 % Dr. Elis Cardenas Work Phone: [facility] 08-17-2023 10:58-0400 Systolic blood pressure 116 mm[Hg] Dr. Elis Cardenas Work Phone: [facility] 08-11-2023 09:38-0400 Body weight 73.93 kg Dr. Elis Cardenas Work Phone: [facility] 07-12-2023 09:05-0400 Body height 157.[address] Elis Cardenas Work Phone: [facility] 07-12-2023 09:05-0400 Body weight 74.[address] Elis Cardenas Work Phone: [facility] 07-07-2023 13:03-0400 Body mass index (BMI) [Ratio] 30.3 kg/m2 Dr. Elis Cardenas Work Phone: [facility] 07-07-2023 13:03-0400 Body weight 75.[address] Elis Cardenas Work Phone: [facility] 07-07-2023 13:03-0400 Diastolic blood pressure 68 mm[Hg] Dr. Elis Cardenas Work Phone: [facility] 07-07-2023 13:03-0400 Heart rate 60 /min Dr. Elis Cardenas Work Phone: [facility] 07-07-2023 13:03-0400 Respiratory rate 16 /min Dr. Elis Cardenas Work Phone: [facility] 07-07-2023 13:03-0400 Systolic blood pressure 117 mm[Hg] Dr. Elis Cardenas Work Phone: [facility] 06-11-2023 08:22-0500 Body height 157.[address] Elis Cardenas Work Phone: [facility] 06-11-2023 08:22-0500 Body weight 75.[address] Elis Cardenas Work Phone: [facility] 05-13-2023 12:05-0500 Body temperature 97.8 [degF] Dr. Elis Cardenas Work Phone: [facility] 05-13-2023 12:05-0500 Diastolic blood pressure 65 mm[Hg] Dr. Elis Cardenas Work Phone: [facility] 05-13-2023 12:05-0500 Heart rate 70 /min Dr. Elis Cardenas Work Phone: [facility] 05-13-2023 12:05-0500 Respiratory rate 18 /min Dr. Elis Cardenas Work Phone: [facility] 05-13-2023 12:05-0500 SaO2% (BldA) [Mass fraction] 97 % Dr. Elis Cardenas Work Phone: [facility] 05-13-2023 12:05-0500 Systolic blood pressure 135 mm[Hg] Dr. Elis Cardenas Work Phone: [facility] 05-13-2023 00:53-0500 Body mass index (BMI) [Ratio] 31.7 kg/m2 Dr. Elis Cardenas Work Phone: [facility] 05-13-2023 00:53-0500 Body weight 78.[address] Elis Cardenas Work Phone: [facility] 05-12-2023 12:53-0500 Body height 157.[address] Elis Cardenas Work Phone: [facility] 04-23-2023 13:03-0500 Body mass index (BMI) [Ratio] 30.7 kg/m2 Dr. Elis Cardenas Work Phone: [facility] 04-23-2023 13:03-0500 Body weight 76.[address] Elis Cardenas Work Phone: [facility] 04-23-2023 13:03-0500 Diastolic blood pressure 74 mm[Hg] Dr. Elis Cardenas Work Phone: [facility] 04-23-2023 13:03-0500 Heart rate 60 /min Dr. Elis Cardenas Work Phone: [facility] 04-23-2023 13:03-0500 Respiratory rate 16 /min Dr. Elis Cardenas Work Phone: [facility] 04-23-2023 13:03-0500 Systolic blood pressure 125 mm[Hg] Dr. Elis Cardenas Work Phone: [facility] 04-12-2023 11:19-0500 Body mass index (BMI) [Ratio] 30.2 kg/m2 Dr. Elis Cardenas Work Phone: [facility] 04-12-2023 11:18-0500 Body weight 74.[address] Elis Cardenas Work Phone: [facility] 04-12-2023 10:42-0500 Diastolic blood pressure 48 mm[Hg] Dr. Elis Cardenas Work Phone: [facility] 04-12-2023 10:42-0500 Heart rate 65 /min Dr. Elis Cardenas Work Phone: [facility] 04-12-2023 10:42-0500 SaO2% (BldA) [Mass fraction] 97 % Dr. Elis Cardenas Work Phone: [facility] 04-12-2023 10:42-0500 Systolic blood pressure 118 mm[Hg] Dr. Elis Cardenas Work Phone: [facility] 04-12-2023 10:26-0500 Body height 157.[address] Elis Cardenas Work Phone: [facility] 03-13-2023 09:37-0500 Body temperature 97.6 [degF] Dr. Elis Cardenas Work Phone: [facility] 03-13-2023 09:37-0500 Diastolic blood pressure 57 mm[Hg] Dr. Elis Cardenas Work Phone: [facility] 03-13-2023 09:37-0500 Heart rate 66 /min Dr. Elis Cardenas Work Phone: [facility] 03-13-2023 09:37-0500 Respiratory rate 12 /min Dr. Elis Cardenas Work Phone: [facility] 03-13-2023 09:37-0500 SaO2% (BldA) [Mass fraction] 96 % Dr. Elis Cardenas Work Phone: [facility] 03-13-2023 09:37-0500 Systolic blood pressure 118 mm[Hg] Dr. Elis Cardenas Work Phone: [facility] 03-13-2023 02:23-0500 Body mass index (BMI) [Ratio] 32.7 kg/m2 Dr. Elis Cardenas Work Phone: [facility] 03-13-2023 02:23-0500 Body weight 81.[address] Elis Cardenas Work Phone: [facility] 03-12-2023 05:35-0500 Body height 157.[address] Elis Cardenas Work Phone: [facility] 03-12-2023 03:56-0500 Body temperature 97.9 [degF] Dr. Elis Cardenas Work Phone: [facility] 03-12-2023 03:56-0500 Diastolic blood pressure 69 mm[Hg] Dr. Elis Cardenas Work Phone: [facility] 03-12-2023 03:56-0500 Heart rate 67 /min Dr. Elis Cardenas Work Phone: [facility] 03-12-2023 03:56-0500 Respiratory rate 18 /min Dr. Elis Cardenas Work Phone: [facility] 03-12-2023 03:56-0500 SaO2% (BldA) [Mass fraction] 96 % Dr. Elis Cardenas Work Phone: [facility] 03-12-2023 03:56-0500 Systolic blood pressure 151 mm[Hg] Dr. Elis Cardenas Work Phone: [facility] 03-12-2023 00:19-0500 Body height 157.[address] Elis Cardenas Work Phone: [facility] 03-12-2023 00:19-0500 Body mass index (BMI) [Ratio] 33.5 kg/m2 Dr. Elis Cardenas Work Phone: [facility] 03-12-2023 00:19-0500 Body weight [address] Elis Cardenas Work Phone: [facility] 02-15-2023 09:08-0400 Body mass index (BMI) [Ratio] 31.6 kg/m2 Dr. Elis Cardenas Work Phone: [facility] 02-15-2023 09:08-0400 Body temperature 97.7 [degF] Dr. Elis Cardenas Work Phone: [facility] 02-15-2023 09:08-0400 Body weight 78.[address] Elis Cardenas Work Phone: [facility] 02-15-2023 09:08-0400 Diastolic blood pressure 70 mm[Hg] Dr. Elis Cardenas Work Phone: [facility] 02-15-2023 09:08-0400 Heart rate 68 /min Dr. Elis Cardenas Work Phone: [facility] 02-15-2023 09:08-0400 Respiratory rate 17 /min Dr. Elis Cardenas Work Phone: [facility] 02-15-2023 09:08-0400 SaO2% (BldA) [Mass fraction] 98 % Dr. Elis Cardenas Work Phone: [facility] 02-15-2023 09:08-0400 Systolic blood pressure 134 mm[Hg] Dr. Elis Cardenas Work Phone: [facility] 10-21-2022 20:08-0400 Diastolic blood pressure 78 mm[Hg] Dr. Elis Cardenas Work Phone: [facility] 10-21-2022 20:08-0400 Heart rate 56 /min Dr. Elis Cardenas Work Phone: [facility] 10-21-2022 20:08-0400 Respiratory rate 16 /min Dr. Elis Cardenas Work Phone: [facility] 10-21-2022 20:08-0400 SaO2% (BldA) [Mass fraction] 97 % Dr. Elis Cardenas Work Phone: [facility] 10-21-2022 20:08-0400 Systolic blood pressure 153 mm[Hg] Dr. Elis Cardenas Work Phone: [facility] 10-21-2022 20:07-0400 Body mass index (BMI) [Ratio] 32.9 kg/m2 Dr. Elis Cardenas Work Phone: [facility] 10-21-2022 20:07-0400 Body weight 81.[address] Elis Cardenas Work Phone: [facility] 10-21-2022 16:33-0400 Body height 157.[address] Elis Cardenas Work Phone: [facility] 10-21-2022 16:33-0400 Body temperature 97.4 [degF] Dr. Elis Cardenas Work Phone: [facility] 07-08-2022 08:43-0400 Diastolic blood pressure 72 mm[Hg] Dr. Elis Cardenas Work Phone: [facility] 07-08-2022 08:43-0400 Systolic blood pressure 158 mm[Hg] Dr. Elis Cardenas Work Phone: [facility] 05-29-2022 13:38-0500 Body temperature 97.7 [degF] Dr. Elis Cardenas Work Phone: [facility] 05-29-2022 13:38-0500 Diastolic blood pressure 59 mm[Hg] Dr. Elis Cardenas Work Phone: [facility] 05-29-2022 13:38-0500 Heart rate 65 /min Dr. Elis Cardenas Work Phone: [facility] 05-29-2022 13:38-0500 Respiratory rate 18 /min Dr. Elis Cardenas Work Phone: [facility] 05-29-2022 13:38-0500 SaO2% (BldA) [Mass fraction] 96 % Dr. Elis Cardenas Work Phone: [facility] 05-29-2022 13:38-0500 Systolic blood pressure 132 mm[Hg] Dr. Elis Cardenas Work Phone: [facility] 05-28-2022 11:54-0500 Inhaled oxygen flow rate 2 L/min Dr. Elis Cardenas Work Phone: [facility] 05-28-2022 06:29-0500 Body height 157.[address] Elis Cardenas Work Phone: [facility] 05-28-2022 06:29-0500 Body mass index (BMI) [Ratio] 32.6 kg/m2 Dr. Elis Cardenas Work Phone: [facility] 05-28-2022 06:29-0500 Body weight [address] Elis Cardenas Work Phone: [facility] 05-14-2022 14:37-0500 Diastolic blood pressure 67 mm[Hg] Dr. Elis Cardenas Work Phone: [facility] 05-14-2022 14:37-0500 Systolic blood pressure 141 mm[Hg] Dr. Elis Cardenas Work Phone: [facility] 03-05-2022 08:18-0500 Body height 157.[address] Elis Cardenas Work Phone: [facility] Work Phone: 03-05-2022 08:18-0500 Diastolic blood pressure 68 mm[Hg] Dr. Elis Cardenas Work Phone: [facility] 03-05-2022 08:18-0500 Systolic blood pressure 127 mm[Hg] Dr. Elis Cardenas Work Phone: [facility] 02-24-2022 13:38-0400 Body mass index (BMI) [Ratio] 31.1 kg/m2 Dr. Elis Cardenas Work Phone: [facility] 02-24-2022 13:38-0400 Body weight 77.[address] Elis Cardenas Work Phone: [facility] 02-24-2022 13:38-0400 Diastolic blood pressure 70 mm[Hg] Dr. Elis Cardenas Work Phone: [facility] 02-24-2022 13:38-0400 Systolic blood pressure 132 mm[Hg] Dr. Elis Cardenas Work Phone: [facility] 12-25-2021 08:59-0400 Body height 157.[address] Elis Cardenas Work Phone: [facility] Work Phone: 12-25-2021 08:59-0400 Diastolic blood pressure 70 mm[Hg] Dr. Elis Cardenas Work Phone: [facility] Work Phone: 12-25-2021 08:59-0400 Systolic blood pressure 160 mm[Hg] Dr. Elis Cardenas Work Phone: [facility] Work Phone: Encounters Encounter Date Encounter Type Care Provider Facility Start: 03-07-2025 End: 03-07-2025 ambulatory Elis Cardenas Facility:[facility] Start: 02-27-2025 End: 02-27-2025 ambulatory Elis Cardenas Facility:[facility] Start: 01-19-2025 [facility] Start: 12-29-2024 End: 12-29-[address] Elis Cardenas DO Work Phone: -[facility] [place] Start: 12-29-2024 End: 12-29-2024 Patient encounter procedure EASTON SETH -[facility] [place] Work Phone: Start: 12-29-2024 End: 12-29-2024 ambulatory Elis Cardenas Facility:[facility] Start: 12-08-2024 ambulatory Joe Mackenzie Facility :[facility] Start: 11-24-2024 Non-patient / Non-visit Dr. Lynne Tabares DO -[place] Work Phone: Start: 11-24-2024 ambulatory Chet Hadley Facvictor hugo lity:[facility] Start: 11-24-2024 Non-patient / Non-visit Chet Hadley MD -[place] [facility] Work Phone: Start: 11-23-2024 End: 11-24-2024 ambulatory Elis Cardenas Facility:[facility] Start: 11-23-2024 End: 11-24-2024 Evaluation and management of inpatient Dr. Tad Trimble DO -Progressive Care Unit Work Phone: Start: 11-23-2024 End: 11-24-[address] Elis Cardenas DO Work Phone: -[facility] Care Unit Start: 11-13-2024 End: 11-13-[address] Elis Cardenas DO Work Phone: -[facility] [place] Start: 11-13-2024 End: 11-13-[address] Lucian Munoz DO -[facility] [place] Work Phone: Start: 11-13-2024 End: 11-13-2024 ambulatory Lucian Munoz Facility:[facility] Start: 11-07-2024 End: 11-07-[address] Elis Cardenas DO Work Phone: -[facility] [place] Start: 11-07-2024 End: 11-07-2024 Patient encounter procedure EASTON SETH -[facility] [place] Work Phone: Start: 11-07-2024 End: 11-07-2024 ambulatory Elis Cardenas Facility:[facility] Start: 10-24-2024 Non-patient / Non-visit Dr. Kourtney Virk MD -[facility] Work Phone: Start: 10-18-2024 End: 10-18-2024 Patient encounter procedure Afua SETH -[facility] Work Phone: Start: 10-18-2024 End: 10-18-[address] Elis Cardenas DO Work Phone: [facility] Work Phone: Start: 09-27-2024 End: 09-27-[address] Elis Cardenas DO Work Phone: [facility] Work Phone: Start: 09-27-2024 End: 09-27-2024 Patient encounter procedure Afua Banuelos MACHINE SET UP TECHNICIAN-C -[facility] Work Phone: Start: 09-27-2024 End: 09-27-2024 ambulatory Afua Banuelos Facility:[facility] Start: 09-27-2024 End: 09-27-2024 ambulatory Afua Banuelos Facility:[facility] Start: 08-24-2024 End: 08-24-[address] Bella Irving MD -[place] [facility] Work Phone: Start: 08-24-2024 End: 08-24-2024 ambulatory Bella Irving Facility:[facility] Start: 08-15-2024 End: 08-15-2024 ambulatory EASTON SPENCER APRN-PRODUCTION HAND Facility:[facility] Start: 07-17-2024 End: 07-17-[address] Elis Cardenas DO Work Phone: [facility] Work Phone: Start: 07-17-2024 End: 07-17-[address] Bella Irving MD -[facility] Work Phone: Start: 07-17-2024 Registered Referred Self Referred -[facility] Work Phone: Start: 07-17-2024 ambulatory Self Referred Facility: [facility] Start: 07-17-2024 End: 07-17-2024 ambulatory Bella Aristides Facility:[facility] Start: 07-13-2024 End: 07-13-[address] Royal Martinez MD -[facility] Work Phone: Start: 07-13-2024 End: 07-13-2024 ambulatory Royal Martinez Facility:[facility] Start: 05-22-2024 End: 05-22-[address] El[facility] Cardenas DO -[facility] Start: 05-22-2024 End: 05-22-2024 ambulatory Elis Cardenas Facility:[facility] Start: 05-16-2024 End: 05-16-2024 Patient encounter procedure Uzma FERREIRA -[facility] Work Phone: Start: 05-16-2024 End: 05-16-2024 ambulatory Uzma Lopez Facility:[facility] Start: 05-02-2024 End: 05-02-[address] Royal Martinez MD -[facility] Work Phone: Start: 05-02-2024 End: 05-02-2024 ambulatory Shawmut Michelle Facility:[facility] Start: 04-25-2024 End: 04-25-[address] Royal Martinez MD -[facility] Work Phone: Start: 04-25-2024 End: 04-25-2024 ambulatory Royal Martinez Facility:[facility] Start: 04-04-2024 ambulatory Bella Irving [facility] Start: 04-04-2024 Non-patient / Non-visit Dr. Bella Irving MD -[facility] Start: 04-04-2024 ambulatory Jakub Godinez Facility:[facility] Start: 04-04-2024 Non-patient / Non-visit Dr. Jakub Godinez MD -[facility] Start: 04-04-2024 End: 04-04-[address] Bella Irving MD -Cardiovascular Services Work Phone: Start: 04-04-2024 End: 04-04-2024 ambulatory Bella Hendersonan Facility:[facility] Start: 03-21-2024 End: 03-21-2024 ambulatory Elis Malys Facility:[facility] Start: 03-13-2024 End: 03-13-2024 ambulatory Elis Malys Facility:[facility] Start: 08-17-2023 End: 08-17-[address] Elis Cardenas Work Phone: [facility] Work Phone: Start: 08-16-2023 End: 08-24-[address] Elis Cardenas Work Phone: [facility] Work Phone: Start: 08-16-2023 End: 08-24-[address] Elis Cardenas Work Phone: [facility]-Cardiac Rehab Work Phone: Start: 07-23-2023 End: 07-25-[address] Elis Cardenas Work Phone: [facility] Work Phone: Start: 07-23-2023 End: 07-25-[address] [facility] Start: 07-14-[address] [facility] Start: 07-09-2023 Non-patient / Non-visit Dr. Elis Cardenas Work Phone: [facility] Start: 07-09-2023 End: 07-09-[address] Elis Cardenas Work Phone: [facility] Work Phone: Start: 07-09-2023 End: 07-09-[address] [facility] Start: 07-07-2023 End: 07-07-[address] Elis Cardenas Work Phone: [facility] Work Phone: Start: 06-23-2023 End: 06-24-[address] Elis Cardenas Work Phone: [facility] Work Phone: Start: 06-23-2023 End: 06-24-[address] Elis Cardenas Work Phone: [facility] Work Phone: Start: 05-26-2023 End: 05-26-[address] Elis Cardenas Work Phone: [facility] Work Phone: Start: 05-13-2023 End: 05-13-2023 Non-patient / Non-visit Dr. Elis Cardenas Work Phone: [facility] Work Phone: Start: 05-12-2023 End: 05-13-2023 Evaluation and management of inpatient Dr. Elis Cardenas Work Phone: [facility]-Intensive Care Unit Work Phone: Start: 05-12-2023 End: 05-13-[address] Elis Cardenas Work Phone: [facility] Work Phone: Start: 05-12-2023 Non-patient / Non-visit Dr. Elis Cardenas Work Phone: [facility] Start: 04-23-2023 End: 04-23-[address] Elis Cardenas Work Phone: [facility]-Laboratory Work Phone: Start: 04-23-2023 End: 04-23-[address] Elis Cardenas Work Phone: [facility] Work Phone: Start: 04-12-2023 End: 04-12-[address] Elis Cardenas Work Phone: [facility] Work Phone: Start: 04-12-2023 End: 04-12-[address] Elis Cardenas Work Phone: [facility]Card[facility] Work Phone: Start: 03-16-2023 Non-patient / Non-visit Dr. Elis Cardenas Work Phone: [facility] Start: 03-13-2023 Non-patient / Non-visit Dr. Elis Cardenas Work Phone: [facility] Work Phone: Start: 03-13-2023 End: 03-13-2023 Non-patient / Non-visit Dr. Elis Cardenas Work Phone: [facility] Work Phone: Start: 03-12-2023 Non-patient / Non-visit Dr. Elis Cardenas Work Phone: [facility] Start: 03-12-2023 Non-patient / Non-visit Dr. Elis Cardenas Work Phone: [facility] Work Phone: Start: 03-12-2023 End: 03-13-2023 Evaluation and management of inpatient Dr. Elis Cardenas Work Phone: [facility]-Progressive Care Unit Work Phone: Start: 02-15-2023 End: 02-15-[address] Elis Cardenas Work Phone: [facility] Work Phone: Start: 01-15-2023 End: 01-15-2023 ambulatory [facility] Work Phone: Start: 01-15-2023 End: 01-15-2023 Patient encounter procedure [facility]-Outpatient Breast Imaging Work Phone: Start: 01-13-2023 End: 01-13-2023 ambulatory [facility] Work Phone: Start: 01-13-2023 End: 01-13-2023 Patient encounter procedure [facility] Start: 11-11-2022 End: 11-11-2022 ambulatory [facility] Work Phone: Start: 11-11-2022 End: 11-11-2022 Patient encounter procedure [facility]Manedep Hartman [facility] Start: 10-21-2022 End: 10-21-2022 Emergency department patient visit Dr. Elis Cardenas Work Phone: [facility]-Emergency Department Work Phone: Start: 09-23-[address] El[facility] hernandez [facility] Work [facility] Start: 07-08-2022 End: 07-08-[address] Elis Cardenas Work Phone: [facility] Work Phone: Start: 05-29-2022 Non-patient / Non-visit Dr. Elis Cardenas Work Phone: [facility] Start: 05-28-2022 Non-patient / Non-visit Dr. Elis Cardenas Work Phone: [facility] Start: 05-28-2022 End: 05-29-2022 Admission to same day surgery center Dr. Elis Cardenas Work Phone: [facility] Start: 05-28-2022 End: 05-29-[address] Elis Cardenas Work Phone: [facility] Work Phone: Start: 05-22-2022 End: 05-22-2022 Non-patient / Non-visit Dr. Elis Cardenas Work Phone: [facility] Start: 05-14-2022 End: 05-14-[address] Elis Cardenas Work Phone: [facility] Start: 05-13-2022 End: 05-13-[address] Elis Cardenas Work Phone[facility] Start: 03-11-2022 End: 03-11-[address] Elis Cardenas Work Phone: [facility] Work Phone: Start: 03-11-2022 End: 03-11-[address] Elis Cardenas Work Phone: [facility]-Ultrasound, [facility] Start: 03-05-2022 End: 03-05-[address] Elis Cardenas Work Phone: [facility] Start: 02-24-2022 End: 02-24-[address] Elis Cardenas Work Phone: [facility] Start: 01-13-2022 End: 01-13-[address] Elis Cardenas Work Phone: [facility] Work Phone: Start: 01-13-2022 End: 01-13-[address] Elis Cardenas Work Phone: [facility]-Outpatient Bone Densitometry Start: 12-25-2021 End: 12-25-[address] Elis Cardenas Work Phone: [facility] Start: 12-23-2021 Non-patient / Non-visit Dr. Elis Cardenas Work Phone: [facility] Start: 12-23-[address] Elis hernandez Work Phone: [facility]Cardiovascular Services Procedures Date Procedure Procedure Detail Performing Clinician Start: 12-29-[address] Elis Cardenas DO [...] limit of quantitation is 0.1ng/mLThyroglobulin measured by [employer] ImmunometricAssayPerformed at: [facility] [id number] Director: Yunier Newton PhD, Phone: [phone] Start: 12-29-[address] Dolores Cardenas DO Work Phone: Comment on above: Thyroglobulin Antibody measured by [employer] maksim GamifyMethodologyIt should be noted that the presence of thyroglobulinantibodies may not be pathogenic nor diagnostic, especiallyat very low levels. The assay cut off sawyer log has found thatfour percent of individuals without evidence of thyroiddisease or autoimmunity will have positive TgAb levels upto 4 IU/mL. Start: 11-24-2024 MRI of brain without contrast [...] Work Phone: Comment on above: Test Ordered: [id number] Alkaline Phosphatas eAlkaline Phosphatase 109 IU/L Reference Range: 44-121Performed at: [facility] [id number] Director: Yunier Newton PhD, Phone: [phone] Start: 11-13-[address] Elis [...] limit of quantitation is 0.1ng/mLThyroglobulin measured by [employer] ImmunometricAssayPerformed at: [facility] [place], [place] [id number] Director: Yunier Newton PhD, Phone: [phone] Start: 11-13-[address] Dolores Cardenas DO Work Phone: Comment on above: Thyroglobulin Antibody measured by AdifyMethodologyIt should be noted that the presence of thyroglobulinantibodies may not be pathogenic nor diagnostic, especiallyat very low levels. The assay cut off sawyer log has found thatfour percent of individuals without [...] limit of quantitation is 0.1ng/mLThyroglobulin measured by [employer] ImmunometricAssayPerformed at: [facility]Che[facility] [id number] [place], [place] [id number] Director: Yunier Newton PhD, Phone: [phone] Start: 11-07-[address] Dolores Cardenas DO Work Phone: Comment on above: Thyroglobulin Antibody measured by [employer] CoulterMethodologyIt should be noted that the presence of thyroglobulinantibodies may not be pathogenic nor diagnostic, especiallyat very low levels. The assay cut off sawyer log has found thatfour percent of individuals without [...] Treatment Date Care Activity Detail Author Start: 01-19-2025 Screening mammography SCRN MAMM (CAD)W/NICA BILAT [facility] Start: 01-19-2025 Patient encounter procedure Registered Clinical -Outpatient Breast Imaging Work Phone: Start: 11-24-2024 Patient discharge [facility] Start: 11-24-2024 Complete blood count [facility] Start: 11-23-2024 Following clinical pathway protocol [facility] Start: 11-23-2024 Application of intermittent pneumatic compression device [facility] Start: 11-23-2024 Aspiration precautions [facility] Start: 11-23-2024 Assessment of risk of venous thromboembolism [facility] Start: 11-23-2024 Cardiac monitoring [facility] Start: 11-23-2024 Catheterization of vein [facility] Start: 11-23-2024 Consultation [facility] Start: 11-23-2024 Continuous pulse oximetry [facility] Start: 11-23-2024 Elevation of head of bed [facility] Start: 11-23-2024 Exercises [facility] Start: 11-23-2024 Incentive spirometry [facility] Start: 11-23-2024 Insertion of catheter into peripheral vein [facility] Start: 11-23-2024 Notification of physician [facility] Start: 11-23-2024 Oxygen therapy [facility] Start: 11-23-2024 Patient referral to dietitian [facility] Start: 11-23-2024 Providing care according to standard [facility] Start: 11-23-2024 Referral for physical therapy [facility] Start: 11-23-2024 Referral to occupational therapist [facility] Start: 11-23-2024 Referral to service [facility] Start: 11-23-2024 Speech therapy assessment [facility] Start: 11-23-2024 Telemedicine consultation with patient [facility] Start: 11-23-2024 Tobacco use cessation education [facility] Start: 11-23-2024 End: 11-23-2024 [facility] Start: 11-23-2024 Vital signs measurements [facility] Start: 11-23-2024 MRI of brain without contrast Brain without Contrast [facility] Start: 11-23-2024 Verification routine [facility] Start: 11-23-2024 Admission procedure [facility] Start: 11-23-2024 T4 free measurement [facility] Start: 11-23-2024 Thyroid stimulating hormone measurement [facility] Start: 11-23-2024 End: 11-23-2024 [facility] Start: 11-23-2024 Oxygen therapy [facility] Start: 05-15-2023 Electrocardiographic procedure [facility] Start: 05-14-2023 Electrocardiographic procedure [facility] Start: 05-13-2023 Patient discharge [facility] Start: 05-12-2023 Patient referral [facility] Work Phone: Start: 05-12-2023 Following clinical pathway protocol [facility] Start: 05-12-2023 Admission procedure [facility] Start: 05-12-2023 Cardiac monitoring [facility] Start: 05-12-2023 Cardiac rehabilitation - phase 1 [facility] Start: 05-12-2023 Notification of physician [facility] Start: 05-12-2023 Oxygen therapy [facility] Start: 05-12-2023 Patient discharge [facility] Start: 05-12-2023 Systemic arterial pressure monitoring [facility] Start: 05-12-2023 Taking patient vital signs [facility] Start: 05-12-2023 Vascular disease risk assessment [facility] Start: 05-12-2023 Vital signs measurements [facility] Start: 05-12-2023 [facility] Start: 03-16-2023 Patient referral [facility] Work Phone: Start: 03-13-2023 Patient discharge [facility] Start: 03-13-2023 End: 03-13-2023 [facility] Start: 03-12-2023 End: 03-12-2023 Care planning and problem solving actions [facility] Start: 03-12-2023 Cardiac monitoring [facility] Start: 03-12-2023 Cardiac rehabilitation - phase 1 [facility] Start: 03-12-2023 Notification of physician [facility] Start: 03-12-2023 Patient discharge [facility] Start: 03-12-2023 Systemic arterial pressure monitoring [facility] Start: 03-12-2023 Taking patient vital signs [facility] Start: 03-12-2023 Vascular disease risk assessment [facility] Start: 03-12-2023 Vital signs measurements [facility] Start: 03-12-2023 [facility] Start: 03-12-2023 Following clinical pathway protocol [facility] Start: 03-12-2023 Assessment of risk of venous thromboembolism [facility] Start: 03-12-2023 Insertion of catheter into peripheral vein [facility] Start: 03-12-2023 Measuring intake and output [facility] Start: 03-12-2023 Oxygen therapy [facility] Start: 03-12-2023 Providing care according to standard [facility] Start: 03-12-2023 Provision of activity privileges [facility] Start: 03-12-2023 Referral to model maker plastic [facility] Start: 03-12-2023 Referral to service [facility] Start: 03-12-2023 Tobacco use cessation education [facility] Start: 03-12-2023 [facility] Start: 03-12-2023 Verification routine [facility] Start: 03-12-2023 Hospital admission, emergency, from emergency room, medical nature [facility] Start: 03-12-2023 Admission procedure [facility] Start: 03-12-2023 [facility] Start: 05-29-2022 Consultation [facility] Start: 05-29-2022 Patient discharge [facility] Start: 05-28-2022 Admission procedure [facility] Start: 02-02-2023 Following clinical pathway protocol [facility] Start: 05-28-2022 Ambulation therapy management [facility] Start: 05-28-2022 Elevation of head of bed [facility] Start: 05-28-2022 Incentive spirometry [facility] Start: 05-28-2022 Measuring intake and output [facility] Start: 05-28-2022 Notification of physician [facility] Start: 05-28-2022 Oxygen therapy [facility] Start: 05-28-2022 Patient education [facility] Start: 05-28-2022 Procedures relating to eating and drinking [facility] Start: 05-28-2022 Taking patient vital signs [facility] Start: 05-28-2022 [facility] Start: 05-28-2022 Admission procedure [facility] Start: 01-13-2022 Dual energy X-ray absorptiometry Dexa Bone Density Study [facility] Work Phone: Start: 01-13-2022 DXA Bone [Mass/Area] Bone density [facility] Work Phone: Start: 12-25-2021 Patient referral [facility] Work Phone: Anion gap in Serum or Plasma [facility] BUN/Creatinine ratio [facility] Calcium [Mass/volume ] in Serum or Plasma [facility] Carbon dioxide, tota l [Moles/volume] in Central venous blood [facility] Cholesterol [Mass/vo lume] in Serum or Plasma [facility] Cholesterol in HDL [Mass/volume] in Serum or Plasma [facility] Comprehensive metabo lic 2000 panel - Serum or Plasma [facility] Creatinine [Mass/vol ume] in Serum or Plasma [facility] Erythrocyte mean cor puscular volume determination [facility] Folate [Mass/volume] in Serum or Plasma [facility] Glucose [Mass/volume ] in Serum or Plasma [facility] Hematocrit [Volume F raction] of Blood [facility] Hemoglobin [Mass/vol ume] in Blood [facility] Hemoglobin A1c/Hemog lobin.total in Blood [facility] Leukocytes [#/volume] in Blood [facility] Lipid 1996 panel - S jing or Plasma [facility] Low density lipoprot ein cholesterol measurement [facility] Mean corpuscular hem oglobin concentration determination [facility] Mean corpuscular hem oglobin determination [facility] Measurement of renal function [facility] Patient Education ED Corrales's Palsy [facility] Work Phone: Patient referral [facility] Work Phone: Platelets [#/volume] in Blood [facility] Potassium measurement [facility] Red blood cell count [facility] Red cell distributio n width determination [facility] Serum chloride measurement [facility] Sodium measurement [facility] Thiamine measurement [facility] Total cholesterol:HD L ratio measurement [facility] Triglycerides measurement [facility] Troponin T.cardiac [Mass/volume] in Serum or Plasma by High sensitivity method [facility] Troponin T.cardiac [Mass/volume] in Serum or Plasma by High sensitivity method [facility] Urea nitrogen [Mass/ volume] in Serum or Plasma [facility] US Heart limited [facility] Vitamin B12 measurement [facility] VLDL cholesterol measurement [facility] XR Abdomen Single view [facility] Payers Date Payer Category Payer Self-pay [id number] 2015 Private Health Insurance [id number] 2008 Medicare [id number] 1945 Unknown [id number] 2.16.8 40.1.055603.3.579.2.627 Unknown [id number] 2.16.8 40.1.657678.3.579.2.462 Unknown [id number] 2.16.8 40.1.502066.3.579.2.462 Unknown [id number] 2.16.8 40.1.580860.3.579.2.462 Unknown [id number] 2.16.8 40.1.091247.3.579.2.462 Unknown [id number] 2.16.8 40.1.734105.3.579.2.462 Unknown [id number] 2.16.8 40.1.030155.3.579.2.462 Unknown [id number] 2.16.8 40.1.689265.3.579.2.462 Unknown [id number] 2.16.8 40.1.595752.3.579.2.462 Unknown [id number] 2.16.8 40.1.338647.3.579.2.462 Unknown [id number] 2.16.8 40.1.400745.3.579.2.462 Unknown [id number] 2.16.8 40.1.169660.3.579.2.462 Unknown [id number] 2.16.8 40.1.836716.3.579.2.462 Unknown [id number] 2.16.8 40.1.057466.3.579.2.462 Unknown [id number] 2.16.8 40.1.943073.3.579.2.462 Unknown [id number] 2.16.8 40.1.819367.3.579.2.462 Unknown [id number] 2.16.8 40.1.756798.3.579.2.462 Unknown [id number] 2.16.8 40.1.547988.3.579.2.462 Unknown [id number] 2.16.8 40.1.050134.3.579.2.462 Unknown [id number] 2.16.8 40.1.718211.3.579.2.462 Unknown [id number] 2.16.8 40.1.648021.3.579.2.462 Unknown [id number] 2.16.8 40.1.227638.3.579.2.462 Unknown [id number] 2.16.8 40.1.064045.3.579.2.462 Unknown [id number] 2.16.8 40.1.110665.3.579.2.462 Unknown [id number] 2.16.8 40.1.595738.3.579.2.462 Unknown [id number] 2.16.8 40.1.851396.3.579.2.462 Unknown [id number] 2.16.8 40.1.032283.3.579.2.462 Unknown [id number] 2.16.8 40.1.778937.3.579.2.462 Social History Date Type Detail Facility Start: 12-25-2021 End: 07-07-2023 Tobacco smoking status NHIS Unknown if ever smoked [facility] Start: 09-27-2015 None [facility] Start: 09-27-2015 Spouse/ Signif icant Other [facility] Start: 09-19-2020 Non-smoker [facility] Start: 1945 Sex Assigned At Female [facility] Start: 07-07-2023 End: 11-24-2024 Tobacco smoking status NHIS Never smoked tobacco (finding) [facility] Start: 07-22-2024 Sex Female (finding) [facility] Sex Female [facility] NEGATED: Highlighted row [facility] Medical Equipment Procedure Code Equipment Code Equipment Origin al Text Equipment Identifier Dates Vaginal hysterectomy ([id number]) [id number] FDA Start: 05-28-2022 Drug-eluting coronary artery stent, non-bioabsorbable- polymer-coated ()[id number] FDA Start: 03-12-2023 Drug-eluting coronary artery stent, non-bioabsorbable- polymer-coated ()[id number] FDA Start: 05-12-2023 Drug-eluting coronary artery stent, non-bioabsorbable- polymer-coated ()[id number] FDA Start: 05-12-2023 Drug-eluting coronary artery stent, non-bioabsorbable- polymer-coated ()[id number] FDA Start: 05-12-2023 Drug-eluting coronary artery stent, non-bioabsorbable- polymer-coated ()[id number] FDA Start: 05-12-2023 Goals Date Patient Goal Desired Activity /State Functional Status Date Assessment Result Facility 11-24-2024 Functional status Ambulates;Chair [facility] Work Phone: 05-13-2023 Functional status Activity Abili ty With Assist of 1 [facility] Work Phone: 05-13-2023 Functional status Patient Activity Ambula martha [facility] Work Phone: 03-13-2023 Functional status Ambulates [facility] Work Phone: 05-29-2022 Functional status Ambulates [facility] Work Phone: Mental Status Date Assessment Result Facility 11-24-2024 Cognitive function Voice/Name [facility] Work Phone: 11-24-2024 Cognitive function Voice/Name [facility] Work Phone: 11-23-2024 Cognitive function Voice/Name [facility] Work Phone: 05-13-2023 Cognitive function Voice/Name [facility] Work Phone: 03-13-2023 Cognitive function Voice/Name [facility] Work Phone: 03-12-2023 Cognitive function Voice/Name [facility] Work Phone: 10-21-2022 Cognitive function Level Of Cons ciousness Awake;Alert [facility] Work Phone: 05-29-2022 Cognitive function Voice/Name [facility] Work Phone: Clinical Notes 05-28-2022 to 11-24-2024 Note Date & Type Note Facility 11-24-2024 Hospital Discharg e instructions Additional Instructions Date of Discharge: 11/24/24 [facility] Work Phone: 11-24-2024 Note [facility] Medical Records Department [address] [place] [address] Discharge Summary 11/24/24 1304 MR#: [id number] Acct: [id number] Name: LILLIANA HUBER Rep #: [id number] : 1945 79 From: Lynne Tabares DO PCP: Dr. Elis Cardenas DO Status:DIS LINA Location: [place] [id number] Providers Date of Admission: 11/23/24 Date of [...] lozenges 15 mg 50 mg PO DAILY 06/03/25 clopidogrel 75 mg tablet 75 mg PO [...] female who presented to the emergency department [facility] on 11/23/2024 with a chief complaint [...] Extremely pleasant, inter (more content not included)... [facility] 11-24-2024 Consult note [facility] 11-23-2024 History and physical note Note Date/Time November 23, 2024 8:18pm [facility] Medical Records Department [address] [place] [address] H&P Exam - Hospitalist 11/23/24 1716 MR#: [id number] Acct: [id number] Name: LILLIANA HUBER Rep #:[id number] : 1945 79 From: Tad hunter DO PCP: Dr. Elis Cardenas, DO Status:ADM LINA Location: [place] [address] HPI - General General Date of Admission: 11/23/24 Date of Service: 11/23/24 Chief Complaint: Right facial numbness/tingling HPI Narrative LILLIANA HUBER, is a 79 F who presented to [facility] ED on 11/23/2024 with right facial [...] be admitted for further management. [facility] Medical History Coronary artery disease Hypertension Dyslipidemia [...] at home: Yes additional social history: - [place] ROS Constitutional Constitutional: Denies chills, fatigue, fever(s) [...] % (Auto) 57.1, Lymph % (Auto) 26.5, [place]% (Auto) 11.0 H, Eos % (Auto) 3.6, [...] left PHYLICIA A2-A3 segments. \ Reading Location: [id number] Brain CT 11/23/24 15:36 IMPRESSION: No acute abnormality is seen. Red Alert: Chronic changes The critical information above was relayed directly by me by telephone to Arnulfo Perrin on 11/23/2024 at 3:48 pm with readback verification. Reading Location: [id number] Assessment & Plan Assessment/Plan (1) Facial paresthesia: PLAN: Plan Patient is an 79-year-old female who presented to [facility] ED on 11/23/2024 for right facial [...] referring her to a neurointerventional specialist at [facility] for this but she declined the referral. [...] 75 minutes. Charges/Coding Visit Charges Inpatient E&M: 73851 Init Hosp L3 11/23/24 2018 <Electronically signed by Tad Trimble DO> Cosigner Signature (if applicable): CC: Dr. Tad Trimble DO; Dr. Elis Cardenas DO~ Signed [facility] Work Phone: 1(811) 296-961307-31-2025 History and physical note [facility] Medical Records Department [address] [place] [address] H&P Exam - Hospitalist 11/23/24 1716 MR#: [id number] Acct: [id number] Name: LILLIANA HUBER Rep #:[id number] : 1945 79 From: Tad hunter DO PCP: Dr. Elis Cardenas DO Status:ADM LINA Location: [place] [address] HPI - General General Date of Admission: 11/23/24 Date of Service: 11/23/24 Chief Complaint: Right facial numbness/tingling HPI Narrative LILLIANA HUBER, is a 79 F who presented to [facility] ED on 11/23/2024 with right facial [...] be admitted for further management. [facility] Medical History Coronary artery disease Hypertension Dyslipidemia [...] at home: Yes additional social history: - [place] ROS Constitutional Constitutional: Denies chills, fatigue, fever(s) [...] % (Auto) 57.1, Lymph % (Auto) 26.5, [place]% (Auto) 11.0 H, Eos % (Auto) 3.6, [...] left PHYLICIA A2-A3 segments. \ Reading Location: [id number] Brain CT 11/23/24 15:36 IMPRESSION: No acute abnormality is seen. Red Alert: Chronic changes The critical information above was relayed directly by me by telephone to Arnulfo Perrin on 11/23/2024 at 3:48 pm with readback verification. Reading Location: [id number]-I Assessment & Plan Assessment/Plan (1) Facial paresthesia: PLAN: Plan Patient is an 79-year-old female who presented to [facility] ED on 11/23/2024 for right facial [...] her to a neuro interventional specialist at [facility] for this but she declined the referral. [...] 75 minutes. Charges/Coding Visit Charges Inpatient E&M: 66151 Init Hosp L3 11/23/242017 Cosigner Signature (if applicable): CC: Dr. Tad Trimble DO; Dr. Elis Cardenas DO~ Signed [facility]07-31-2025 Discharge summary Author Arnulfo Perrin [facility] Note Date/Time November 23, 2024 5:20 pm [facility] Medical Records Department [address] [place] [address] Emergency Department Summary 11/23/24 MR#: [id number] Acct: [id number] Name: LILLIANA HUBER Rep #:[id number] : 1945 79 From: Arnulfo Perrin MD [...] or Xarelto. No exacerbating or alleviating factors. [facility] Medical History Coronary artery disease Hypertension [...] at home: Yes additional social history: - [place] ROS ROS ED ROS Narrative Review of [...] with a PTT 29. BMP grossly unremarkable. Drioa-wz-agtn glucose 98. High-sensitivity troponin is 10. Patient [...] % (Auto) 57.1 Lymph % (Auto) 26.5 [place] % (Auto) 11.0 H Eos % (Auto) [...] left PHYLICIA A2-A3 segments. \ Reading Location: [id number] Brain CT 11/23/24 15:36 IMPRESSION: No acute abnormality is seen. Red Alert: Chronic changes The critical information above was relayed directly by me by telephone to Arnulfo Perrin on 11/23/2024 at 3:48 pm with readback verification. Reading Location: [id number] Discharge Plan Dx/Rx/DC Orders Clinical Impression: Weakness on right side of face, History of stroke, Facial paresthesia Disposition Disposition: Acute Care Hospital [facility] NIHSS NIHSS 1a. Level of Consciousness: [...] your Primary Care Provider. Call [facility] ([phone]) or report to the closest Emergency Room. Call 911 if necessary. 11/23/24 1720 <Electronically signed by Arnulfo Perrin MD> Cosigner Signature (if applicable): CC: Dr. Elis Cardenas DO ~ Signed [facility] Work Phone: 1(809) 624-567207-31-2025 Discharge summary [facility] Medical Records Department [address] [place] [address] Emergency Department Summary 11/23/24 MR#: [id number] Acct: [id number] Name: LILLIANA HUBER Rep #:[id number] : 1945 79 From: Arnulfo Perrin MD [...] or Xarelto. No exacerbating or alleviating factors. [facility] Medical History Coronary artery disease Hypertension [...] at home: Yes additional social history: - [place] ROS ROS ED ROS Narrative Review of [...] with a PTT 29. BMP grossly unremarkable. Zydnx-pr-klrh glucose 98. High-sensitivity troponin is 10. Patient [...] % (Auto) 57.1 Lymph % (Auto) 26.5 [place] % (Auto) 11.0 H Eos % (Auto) [...] left PHYLICIA A2-A3 segments. \ Reading Location: [id number]-[id number] Brain CT 11/23/24 15:36 IMPRESSION: No acute abnormality is seen. Red Alert: Chronic changes The critical information above was relayed directly by me by telephone to Arnulfo Perrin on 11/23/2024 at 3:48 pm with readback verification. Reading Location: [id number] Discharge Plan Dx/Rx/DC Orders Clinical Impression: Weakness on right side of face, History of stroke, Facial paresthesia Disposition Disposition: Acute Care Hospital [facility] NIHSS NIHSS 1a. Level of Consciousness: [...] your Primary Care Provider. Call [facility] ([phone]) or report tothe closest Emergency Room. Call 911 if necessary. 11/23/24 1720 Cosigner Signature (if applicable): CC: Dr. Elis Cardenas DO ~ Signed [facility]07-31-2025 Radiology Diagnostic study note [facility] Imaging Services [address] [place] [address] STROKE CTA Head AND Neck W/Con MR#: [id number] Acct: [id number] Name: LILLIANA HUBER Rep #: [id number] : 1945 F 79 From: Israel Almanzar MD PCP: Dr. 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 \ Reading Location: [facility] CC: Dr. Arnulfo Perrin MD; Dr. Elis Cardenas DO ~ Coil Connector Repairer: Signed [facility]07-31-2025 Radiology Diagnostic study note [facility] Imaging Services [address] [place] [address] STROKE Brain/Head without Cont MR#: [id number] Acct: [id number] Name: LILLIANA HUBER Rep #: [id number] : 1945 F 79 From: Roger Holland MD PCP: Dr. Elis Cardenas DO Status: REG ER Study:STROKE Brain/Head without Cont Date of Exam: 11/23/24 Exam# [id number] Ordering Dr: Arnulfo Perrin MD PROCEDURE: STROKE [...] 3:48 pm with readback verification. Reading Location: [id number] CC: Dr. Arnulfo Perrin MD; Dr. Elis Cardenas DO ~ Coil Connector Repairer: Signed [facility]07-31-2025 Discharge summary Author Arnulfo Perrin [facility] Note Date/Time November 23, 2024 5:20 pm [facility] Medical Records Department [address] [place] [address] Emergency Department Summary 11/23/24 MR#: [id number] Acct: [id number] Name: LILLIANA HUBER Rep #:[id number] : 1945 79 From: Arnulfo Perrin MD [...] or Xarelto. No exacerbating or alleviating factors. [facility] Medical History Coronary artery disease Hypertension [...] at home: Yes additional social history: - [place] ROS ROS ED ROS Narrative Review of [...] with a PTT 29. BMP grossly unremarkable. Iiktf-kp-hrjl glucose 98. High-sensitivity troponin is 10. Patient [...] % (Auto) 57.1 Lymph % (Auto) 26.5 [place] % (Auto) 11.0 H Eos % (Auto) [...] left PHYLICIA A2-A3 segments. \ Reading Location: [id number]-GH Brain CT 11/23/24 15:36 IMPRESSION: No acute abnormality is seen. Red Alert: Chronic changes The critical information above was relayed directly by me by telephone to Arnulfo Perrin on 11/23/2024 at 3:48 pm with readback verification. Reading Location: [id number]-G Discharge Plan Dx/Rx/DC Orders Clinical Impression: Weakness on right side of face, History of stroke, Facial paresthesia Disposition Disposition: Acute Care Hospital [facility] NIHSS NIHSS 1a. Level of Consciousness: [...] your Primary Care Provider. Call [facility] ([phone]) or report to the closest Emergency Room. Call 911 if necessary. 11/23/24 1720 <Electronically signed by Arnulfo Perrin MD> Cosigner Signature (if applicable): CC: Dr. Elis Cardenas, DO ~ Signed [facility] Work Phone: 1(210) 877-340906-25-2025 Progress note Author Afua Banuelos [facility] Note Date/Time October 18, 2024 1:38 pm [facility] [address] [place] [address] OFFICE VISIT Date of Service: 10/18/24 MR#: [id number] Acct: [id number] Name: LILLIANA HUBER Rep #: [id number] : 1945 Provider: DORINDA Banuelos Age/Sex: 79/F Location: [facility] Status: Signed Intake Vital Signs 09/27/24 09:02 [...] Visit Reasons: 3 WK fu Chief Complaint: [facility] [place] Stitcher Required: No Accompanied by: Self Is patient [...] you fallen in the past year?: No [facility] Medical History Coronary artery disease Hypertension Dyslipidemia [...] at home: Yes additional social history: - [place] HPI HPI Chief Complaint: constipaiton Details: LILLIANA [...] daily and follow-up in 3 weeks. Note: [employer] speech recognition desktop support specialist software was used to create portions of this document. Sound-alike and misspelled words, as well as other desktop support specialist errors may be contained in the documentation. [...] her daughter and she is leaving for [place] tomorrow - she remains active - lives [...] and overweight Orientation: alert and oriented x3 [facility] Head: normocephalic Ears: hearing grossly normal bilaterally [...] for colonoscopy if symptoms are persisting. Note: [employer] speech recognition desktop support specialist software was used to create portions of this document. Sound-alike and misspelled words, as well as other desktop support specialist errors may be contained in the documentation. [...] Smoking Screening Smoking Status: Never smoker 10/18/24 3217 <Electronically signed by Afua SETH> Date _ Afua SETH Cosigner Signature: Date (if applicable) CC: ~ [facility] Work Phone: 1(315) 663-878106-25-2025 [facility] Gastroenterology [address] [place] [address] OFFICE VISIT Date of Service: 10/18/24 MR#: [id number] Acct: [id number] Name: LILLIANA HUBER Rep #: [id number] : 1945 Provider: DORINDA Banuelos Age/Sex: 79/F Location: [facility] [place] Status: Signed Intake Vital Signs 09/27/24 09:02 [...] Reasons: 3 WK fu Chief Complaint: constipaiton Gore Stitcher Required: No Accompanied by: Self Is patient [...] mg tablet,delayed 5 mg PO ONCE PRN 10/18/24 History release (Gentle Laxative (bisacodyl)) Have [...] at home: Yes additional social history: - [place] HPI HPI Chief Complaint: constipaiton Details: LILLIANA [...] daily and follow-up in 3 weeks. Note: [employer] speech recognition desktop support specialist software was used to create portions of this document. Sound-alike and misspelled words, as well as other desktop support specialist errors may be contained in the documentation. [...] her daughter and she is leaving for [place] tomorrow - she remains active - lives [...] for colonoscopy if symptoms are persisting. Note: [employer] speech recognition desktop support specialist software was used to create portions of this document. Sound-alike and misspelled words, as well as other desktop support specialist errors may be contained in the documentation. [...] Smoking Status: Never smoker 10/18/24 1338 rayshawn MACHINE SET UP TECHNICIAN-C> Date _ Afua VALENZUELAC Cosigner Signature: Date (if applicable) CC: ~ [facility]06-05-2025 Radiology Diagnostic study note [facility] Imaging Services [address] [place], [place] [address] Abdomen Single View MR#: [id number] Acct: [id number] Name: LILLIANA HUBER Rep #: [id number] : 1945 F 78 From: Ramana Reynoso MD PCP: Dr. Elis Cardenas, DO Status: REG CLI Study:Abdomen Single View Date of Exam: 09/27/24 Exam# [id number] Ordering Dr: Afua Banuelos PROCEDURE: ABDOMEN SINGLE VIEW 09/27/2024 REASON FOR EXAM: CONSTIPATION TECHNIQUE: Single view abdomen. COMPARISON: None. FINDINGS: The bowel gas pattern is nonobstructive. There are no abnormal soft tissue calcifications or radiopaque foreign bodies. There are no significant bony abnormalities. RAD/Abdomen Single View IMPRESSION: No evidence of acute abdominal pathology. Reading Location: [id number] CC: DORINDA Banuelos; Dr. Elis Cardenas, DO ~ Coil Connector Repairer: Signed [facility] Work Phone: 1(174) 827-779506-04-2025 Evaluation note* Diagnosis Onset Date Resolution Status Admit Date Constipation acute September 27 8:44am Change in bowel habits acute [facility] 2024 12:58pm Facial paresthesia resolved October 262024 5:16pm Weakness on right side of face resol angel November 23, 2024 5:16pm History of stroke inactive November 232024 5:16pm [facility] Work Phone: 1([phone]) 854-849705-01-2025 Evaluation note* Diagnosis Onset Date Resolution Status Admit Date Aortic valve regurgitation chronic August 24, 2024 1:35pm Carotid artery disease chronic Ma y 2024 1:35pm Coronary artery disease chronic M ay 2024 1:35pm Dyslipidemia chronic August 24 1:35pm Hypertension chronic August 24 1:35pm Stented coronary artery May 12, 2023 manager plan megan August 24, 2024 1:35pm Ischemic cardiomyopathy resolved M ay 2024 1:35pm Constipation acute September 27 8:44am Change in bowel habits acute [facility] 2024 12:58pm [facility] Work Phone: 1(407) 764-897305-01-2025 Evaluation note* Diagnosis Onset Date Resolution Status Admit Date Aortic valve regurgitation chronic August 24, 2024 1:35pm Carotid artery disease chronic Ma y 2024 1:35pm Coronary artery disease chronic M ay 2024 1:35pm Dyslipidemia chronic August 24 1:35pm Hypertension chronic August 24 1:35pm Stented coronary artery May 12, 2023 manager plan megan August 24, 2024 1:35pm Ischemic cardiomyopathy resolved M ay 2024 1:35pm Constipation acute September 27 8:44am Change in bowel habits acute [facility] 2024 12:58pm Facial paresthesia acute October 262024 5:16pm History of stroke acute November 232024 5:16pm Weakness on right side of face acute November 23, 2024 5:16pm [facility] Work Phone: [phone] Evaluation note* Diagnosis Onset Date Resolution Status [...] 1:35pm Stented coronary artery May 12, 2023 manager plan megan August 24, 2024 1:35pm Ischemic cardiomyopathy resolved M ay 2024 1:35pm Constipation acute September 27 8:44am [facility] Work Phone: 1([phone]) 156-640103-20-2025 Evaluation note* Diagnosis Onset Date Resolution Status [...] 1:35pm Stented coronary artery May 12, 2023 manager plan megan August 24, 2024 1:35pm Ischemic cardiomyopathy resolved M ay 2024 1:35pm Constipation acute September 27 8:44am Change in bowel habits acute Ju ne 2024 12:58pm [facility] Work Phone: 1([phone]) 912-827212-31-2024 Evaluation note* Diagnosis Onset Date Resolution Status Admit Date Basilar artery stenosis acute D ecember 2023 10:14am Mild cognitive impairment acute April 25, 2024 10:14am Cerebrovascular accident noneactive April 25, 2024 10:14am Basilar artery stenosis acute J anuary 2024 1:21pm Basilar artery stenosis acute M arch 2024 1:55pm Mild cognitive impairment acute July 13, 2024 1:55pm Cerebrovascular accident noneactive July 13, 2024 1:55pm [facility] Work Phone: 1(461) 996-211101-18-2024 Discharge summary Author Claribel Purvis [facility] May 13, 2023 10:26am Note Date/Time May 13, 2023 1 0:20am [facility] Medical Records Department [address] [place] [address] Instructions for Home/Discharge Instructions 05/13/23 1017 MR#: [id number] Acct: [id number] Name: LILLIANA HUBER Rep #:[id number] : 1945 77 From: Claribel FERREIRA PA PCP: Dr. Elis Cardenas, DO Status:ADM LINA [...] the incision site Follow Up Care When: [place] [facility] will call you with an appointment for [...] correct instructions. Our office's phone number is [phone] option 4 for the nurse. Discharge Orders/Prescriptions Prescriptions: New Brilinta 90 mg Tablet 90 mg PO BID Qty: 60 11RF Continued atorvastatin 40 mg tablet 40 mg PO DAILY Qty: 90 1RF citalopram 10 mg tablet 10 mg PO DAILY Qty: 30 5RF levothyroxine 137 mcg tablet 137 mcg PO DAILY (DME) Handicap Yamilet See Rx Instructions .Route .MEDSUPPLY Qty: 1 [...] CC: Dr. Elis Cardenas DO ~ Signed [facility] Work Phone: 1([phone]) 161-450701-17-2024 Hospital Discharge instructions Additional Instructions Dr. Hoffmann [...] correct instructions. Our office's phone number is [phone] option 4 for the nurse.[facility] Work Phone: 1(171) 573-490701-17-2024 Evaluation note* Diagnosis Onset Date Resolution Status Hyperlipidemia chronic Acute non-ST elevation myoca rdial infarction (NSTEMI) resolved Ischemic cardiomyopathy acut e Hyperlipidemia chronic Stented coronary artery May 12, 2023 [facility] Work Phone: [phone]) 783-202301-17-2024 Evaluation note* Diagnosis Onset Date Resolution Status Hyperlipidemia chronic Ischemic cardiomyopathy manager plan megan Stented coronary artery May 12, 2023 chronic Coronary artery disease manager plan megan Dyslipidemia chronic Hypertension chronic Ischemic cardiomyopathy manager plan mgean Stented coronary artery May 12, 2023 [facility] Work Phone: [phone]) [phone] Evaluation note* Diagnosis Onset Date Resolution Status Coronary artery disease manager plan megan Dyslipidemia chronic Hypertension chronic Ischemic cardiomyopathy manager plan megan Stented coronary artery May 12, 2023 chronic Mild cognitive impairment ac [place] Cerebrovascular accident non eactive [facility] Work Phone: 1([phone]) 736-961611-18-2023 Discharge summary Author Alfonso Anderson [facility] March 13, 2023 9:38am Note Date/Time March 13, 2023 9:32am [facility] Medical Records Department [address] [place] [address] Discharge Summary 03/13/2331 MR#: [id number] Acct: [id number] Name: LILLIANA HUBER Rep #:[id number] : 1945 77 From: Alfonso Anderson MD PCP: Dr. Elis Cardenas DO Status:ADM IN Location: [place] [id number]- [id number] Providers Date of Admission: 03/12/23 Primary Care Physician: Dr. Elis Cardenas DO Consultations 03/12/23 05:26 Consult: Cardiology Routine [...] balloon followed by placement of drug-eluting stent Sunday. Patient was discharged home with guideline directed [...] Cardenas Performed By: Christie Galan, DONNIE, RVT D/C Instructions Discharge Diet: Low fat [...] Becca at discharge?: Yes Done w/ Acute CA measure.: Yes Documented LVEF (%): 40 Discharge [...] Self Care Charges/Coding Visit Charges Inpatient E&M: 98782 Disch Hosp >30min 03/13/23 0938 <Electronically signed by Alfonso Anderson MD> Cosigner Signature (if applicable): CC: Dr. Alfonso Anderson MD; Dr. Elis Cardenas DO~ Signed [facility] Work Phone: 1([phone]) 337-472611-18-2023 Progress note Author Alfonso Anderson [facility] March 13, 2023 9:31am Note Date/Time March 13, 2023 9:26am [facility] Medical Records Department [address] [place] [address] Progress Note - Hospitalist 03/13/23922 MR#: [id number] Acct: [id number] Name: LILLIANA HUBER Rep #:[id number] : 1945 77 From: Alfonso Anderson MD PCP: Dr. Elis Cardenas, DO Status:ADM IN Location: [place] [address] Reason for Visit Reason for Visit: Diagnoses Hyperlipidemia, unspecified (03/12/23) Essential (primary) hypertension (03/12/23) Non-ST elevation (NSTEMI) myocardial infarction (03/12/23) Subjective Subjective Patient underwent successful PCI of the culprit which is 80% stenosis of the midLAD which is calcified with thrombus Predilated with 2.5 x 15 mm balloon followed by placement of drug-eluting stent [place] Objective Data Objective Data Vital Signs: Vital [...] 40 Minutes Charges/Coding Visit Charges Inpatient E&M: 37482 Subs Hosp L2 03/13/23 0931 <Electronically signed by Alfonso Anderson MD> Cosigner Signature (if applicable): CC: ~ Signed [facility] Work Phone: [phone]) 813-808511-17-2023 Consult note Author Kendal Hoffmann [facility] March 12, 2023 4:24pm Note Date/Time March 12, 2023 9:14am [facility] Medical Records Department [address] [place] [address] Consultation - Cardiology 03/12/23 0910 MR#: [id number] Acct: [id number] Name: LILLIANA HUBER Rep #:[id number] : 1945 77 From: Kendal Hoffmann MD PCP: Dr. Elis Cardenas, DO Status:ADM IN Location: [place] [address] <Statement entered by Kendal Hoffmann MD - [...] is a 77 F who presented to [facility] on 03/12/2023 with Chest pain that was described as vague midsternal that radiated right to left that last approx one hour. Troponins trended 88/400. She was admitted to PCU for further evaluation. She does have a history of hypertension, hyperlipidemia and hypothyroid. Currently she does not have any chest pain/heaviness/ SOB. [facility] Medical History (Updated 03/12/23 @ 08:22 by [...] at home: Yes additional social history: - [place] ROS Constitutional Constitutional: Denies change in weight, [...] Charges/Coding Visit Charges Office Visits / Consults: 70385 IP Consult L4 Objective Data Vital Signs: [...] % (Auto) 60.3, Lymph % (Auto) 27.0, [place] % (Auto) 8.2, Eos % (Auto) 2.3, [...] % (Auto) 60.3, Lymph % (Auto) 27.0, [place] % (Auto) 8.2, Eos % (Auto) 2.3, [...] Radha Little MD at 1:14 EST , 03/12/23 1624 <Electronically signed by Kendal Hoffmann MD> Cosigner Signature (if applicable): 03/12/23 1124 <Electronically signed by Claribel FERREIRA PA> CC: Dr. Kendal Hoffmann MD; Dr. Lynne Tabares DO; Dr. Elis Cardenas DO~ Signed [facility] Work Phone: 1([phone]) 108-300511-17-2023 Progress note Author Alfonso Anderson [facility] March 12, 2023 12:52pm Note Date/Time March 12, 2023 9:00am [facility] Medical Records Department [address] [place] [address] Progress Note - Hospitalist 03/12/23 0900 MR#: [id number] Acct: [id number] Name: LILLIANA HUBER Rep #:[id number] : 1945 77 From: Alfonso Anderson MD PCP: Dr. Elis Cardenas DO Status:ADM IN Location: [place] [address] Reason for Visit Reason for Visit: Diagnoses [...] % (Auto) 60.3, Lymph % (Auto) 27.0, [place] % (Auto) 8.2, Eos % (Auto) 2.3, [...] Radha Little MD at 1:14 EST , Physical Exam Narrative GENERAL: cooperative HEENT: [...] 50 Minutes Charges/Coding Visit Charges Inpatient E&M: 93757 Subs Hosp L3 03/12/23 1252 <Electronically signed by Alfonso Anderson MD> Cosigner Signature (if applicable): CC: ~ Signed [facility] Work Phone: 1([phone]) 171-235111-17-2023 Discharge summary Author Martin Wilkins [facility] March 12, 2023 8:22am Note Date/Time March 12, 2023 4:25am [facility] Medical Records Department [address] [place] [address] Emergency Department Summary 03/12/23 MR#: [id number] Acct: [id number] Name: LILLIANA HUBER Rep #:[id number] : 1945 77 From: Martin Wilkins DO PCP: Dr. Elis Cardenas DO Status:ADM IN Location: [place] [address] HPI History of Present Illness Chief Complaint: Chest [...] blood thinner other than a baby aspirin [facility] Medical History (Updated 03/12/23 @ 08:[address] Martin Wilkins DO) Aphthous ulcer of mouth Arthritis Corrales's [...] at home: Yes additional social history: - [place] ROS ROS ED Constitutional Constitutional ED: Denies [...] % (Auto) 60.3 Lymph % (Auto) 27.0 [place] % (Auto) 8.2 Eos % (Auto) 2.3 [...] Radha Little MD at 1:14 EST , Chest x-ray is interpreted by the emergency medicine physician reveals mild prominence of the hilum without acute infiltrate pneumothorax pleural effusion or widening of the mediastinum Management Discussion w/another healthcare provider: Hospitalist and Lot Attendant Critical Care Time Critical Care Time: Yes Critical care time (excluding procedures): Discussing w/Patient &/or Family/CareGiver, Discussing w/Consultants and - (Critical care time of 33 minutes) Discharge Plan Dx/Rx/DC Orders Clinical Impression: Acute non-ST elevation myocardial infarction (NSTEMI), Hyperlipidemia, Hypertension Disposition Disposition: Acute Care Hospital [facility] Discharge Date/Time: 03/12/23 05:15 What to do if you have Problems For any increased pain, shortness of breath, bleeding, nausea or vomiting, chestpain, or any unexpected problems, contact your Primary Care Provider. Call [facility] ([phone]) or report to the closest Emergency Room. Call 911 if necessary. 03/12/23821 <Electronically signed by Martin Wilkins DO> Cosigner Signature (if applicable): CC: Dr. Elis Cardenas DO ~ Signed [facility] Work Phone: 1([phone]) 746-311711-17-2023 History and physical note Author Lynne Tabares [facility] March 12, 2023 4:55am Note Date/Time March 12, 2023 4:35am [facility] Medical Records Department [address] [place] [address] H&P Exam - Hospitalist 03/12/23 0432 MR#: [id number] Acct: [id number] Name: LILLIANA HUBER Rep #:[id number] : 1945 77 From: Lynne Tabares DO PCP: Dr. Elis Cardenas DO Status:ADM IN Location: [address] 1 HPI - General General Date of Admission: 03/12/23 Date of Service: 03/12/23 Chief Complaint: Chest pain HPI Narrative LILLIANA HUBER, is a 77 F who presented to the emergency department at [facility] on 03/12/2023 just after midnight complaining [...] lymphadenopathy and borderline cardiac enlargement [facility] Medical History Aphthous ulcer of mouth Arthritis [...] at home: Yes additional social history: - [place] ROS Constitutional Constitutional: Denies anorexia, change in [...] % (Auto) 60.3, Lymph % (Auto) 27.0, [place] % (Auto) 8.2, Eos % (Auto) 2.3, [...] 1:14 EST Reading Location ID and State: [facility] / [place] Tel , Service support , Assessment & Plan Assessment/Plan (1) Acute [...] on admission Charges/Coding Visit Charges Inpatient E&M: 62881 Init Hosp L2 03/12/23 0455 <Electronically signed by Lynne Tabares DO> Cosigner Signature (if applicable): CC: Dr. Lynne Tabares DO; Dr. Elis Cardenas DO~ Signed [facility] Work Phone: 1(160) 417-538002-03-[address] Virk [facility] May 29, 2022 8:30am Note Date/Time May 29, 2022 8 :30am [facility] Medical Records Department [address] [place] [address] Progress Note - Urology 05/29/22825 MR#: [id number] Acct: [id number] Name: LILLIANA HUBER Rep #:[id number] : 1945 76 From: Kourtney Tim PCP: Dr. Elis Cardenas DO Status:REG [facility] Location: MS3 [id number] Subjective Subjective She is awake, comfortable in [...] home later today if okay with medicine. 05/29/22 0830 <Electronically signed by Kourtney Virk MD> Cosigner Signature (if applicable): CC: ~ Signed [facility] Work Phone: [phone]) 854-872902-03-[address] Rao [facility] May 29, 2022 8:20am Note Date/Time May 29, 2022 8 :18am [facility] Medical Records Department [address] [place] [address] Progress Note - OBGYN 05/29/22812 MR#: [id number] Acct: [id number] Name: LILLIANA HUBER Rep #:[id number] : 1945 76 From: Afua Barry DO PCP: Dr. Elis Cardenas, DO Status:REG [facility] Location: [place]3 AO292-5 Subjective Subjective Patient is laying in bed comfortably without complaints. She states that she slept on an off during the night. 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 pt states thatshe [...] Signed: El Aguilera MD at 7:16 EST Reading Location ID and State: [facility] / [place] Tel , Service support , ROS Constitutional Constitutional: Reports systems reviewed [...] Cosigner Signature (if applicable): CC: ~ Signed [facility] Work Phone: 1(407) 979-345902-02-2023 Procedure [facility] 05-28-2022 History and physical note Author Dr. Rao [facility] May 28, 2022 7:27am Note Date/Time May 28, 2022 7 :27am [facility] Medical Records Department [address] [facility] [place] [address] History & Physical Exam 05/28/22 0725 MR#: [id number] Acct: [id number] Name: LILLIANA HUBER Rep #:[id number] : 1945 76 From: Afua Barry DO PCP: Dr. Elis Cardenas, DO Status:[facility] Location: [place] [address] History and Physical Date of Admission: 05/28/22 Intake Vital Signs ? 05/14/2313:37 05/14/2313:37 Height 5 ft 2 in 5 ft 2 in BP 141/67 H ? Intake Visit Reasons:?[facility] Gore Stitcher Required: No Is patient in pain?: No [...] Patient : No : No [facility] Medical History? Aphthous ulcer of mouth Corrales's [...] at home:? Yes additional social history:? - [place] [facility] Details: ?LILLINAA HUBER is a 76 year old who [...] Date Name GA/Weeks Outcome Route Bth Weight Gen Labor Lgth Anesthesia Del Locatn Provider [...] to the history and physical exam. Afua Barry, 05/28/22 0727 <Electronically signed by Afua Barry DO> Cosigner Signature (if applicable): CC: Dr. Afua Barry DO; Dr. Elis Cardenas DO~ Signed [facility] Work Phone: 1(735) 730-944402-02-2023 Procedure [facility] Consult note Author Rachel Holman [facility] Note Date/Time November 24, 2024 12: 49pm [facility] Medical Records Department [address] [place] [address] Consultation - Neurology 11/24/24 1248 MR#: [id number] Acct: [id number] Name: LILLIANA HUBER Rep #:[id number] : 1945 79 From: Rachel Holman MD PCP: Dr. Elis Cardenas DO Status:ADM LINA Location: [place] [address] Assessment and Plan: Neuro Assessment/Plan LILLIANA HUBER, is a 79 woman with history of basilar stenosis, CAD, on ASA/Plavix/Statin, who presented to [facility] ED on 11/23/2024 with transient weird [...] <130/90, Statin for LDL <70, diabetes management siugN6L< 7%, no smoking, and alcohol in moderation. [...] is a 79 F who presented to [facility] ED on 11/23/2024 with right facial [...] at home: Yes additional social history: - [place] Vital Signs Vital Signs Vital Signs: 11/23/24 [...] % (Auto) 57.1, Lymph % (Auto) 26.5, Socorro% (Auto) 11.0 H, Eos % (Auto) 3.6, [...] left PHYLICIA A2-A3 segments. \ Reading Location: [id number] Brain CT 11/23/24 15:36 IMPRESSION: No acute abnormality is seen. Red Alert: Chronic changes The critical information above was relayed directly by me by telephone to AydinArnulfo on 11/23/2024 at 3:48 pm with readback verification. Reading Location: [id number] Echocardiogram 11/24/24 08:20 Interpretation Summary Normal left [...] 3. Mild generalized cerebral atrophy. Reading Location: [place] [address] Active Medications Active Medications Active Medications: Current [...] mls @ 15 mls/hr 11/23/24 18:35 IV .[id number] PRN Saline Flush Sodium Chloride 250 mls @ 15 mls/hr 11/23/24 18:35 IV .[id number] PRN Additional IVPB Infusion Labetalol HCl 20 [...] or with change in RN caregiver Freq: [id number] Protocol: Activity Type Activity Date Activity User E-sign Co-sign Detail Recorded Client Recorded Date Recorded By Document 11/23/24 18:12 RY [id number] 11/23/24 18:17 RY 11/23/24 18:12 NIH Stroke [...] and with change in RN caregiver. Freq: [id number] Protocol: Activity Type Activity Date Activity User E-sign Co-sign Detail Recorded Client Recorded Date Recorded By Document 11/24/24 10:00 RY [id number] 11/24/24 11:29 [facility] 11/24/24 10:00 NIH Stroke Scale [NIHSS] A [...] applicable): CC: Dr. Elis Cardenas, DO~ Signed [facility] Work Phone: Evaluation note* Diagnosis Onset Date Resolution Status Encounter for routine gynecological examination noneactive [facility] Work Phone: Evaluation note* Diagnosis Onset Date Resolution Status Encounter for routine gynecological examination noneactive Excoriation acute Uterovaginal prolapse, incomplete acute Nocturia acute Overflow stress urinary incontinence in female acute Uterovaginal prolapse, incomplete acute [facility] Work Phone: Evaluation note* Diagnosis Onset Date Resolution Status Excoriation acute Uterovaginal prolapse, incomplete acute Nocturia acute Overflow stress urinary incontinence in female acute Uterovaginal prolapse, incomplete acute Overflow stress urinary incontinence in female acute Uterovaginal prolapse, incomplete acute Overflow stress urinary incontinence in female acute Status post hysterectomy with oophorectomy acute Stress incontinence acute Uterovaginal prolapse, incomplete acute [facility] Work Phone: Evaluation note* Diagnosis Onset Date Resolution Status Compression neuropathy of genitofemoral nerve acute Status post hysterectomy acu te Stress incontinence acute Uterovaginal prolapse, incomplete acute [facility] Work Phone: Evaluation noteNo assessment information available [facility] Work Phone: Evaluation note* Diagnosis Onset Date Resolution Status Cerebrovascular accident non eactive Acute non-ST elevation myoca rdial infarction (NSTEMI) acute [facility] Work Phone: Evaluation note* Diagnosis Onset Date Resolution Status Cerebrovascular accident non eactive Acute non-ST elevation myoca rdial infarction (NSTEMI) acute Hyperlipidemia chronic Hypertension chronic [facility] Work Phone: Evaluation note* Diagnosis Onset Date Resolution Status Cerebrovascular accident non eactive Hyperlipidemia chronic Hypertension chronic Acute non-ST elevation myoca rdial infarction (NSTEMI) resolved [facility] Work Phone: Evaluation note* Diagnosis Onset Date Resolution Status Cerebrovascular accident non eactive Hyperlipidemia chronic Hypertension chronic Acute non-ST elevation myoca rdial infarction (NSTEMI) resolved Ischemic cardiomyopathy acut e Hyperlipidemia chronic Hypertension chronic Stented coronary artery May 12, 2023 chronic [facility] Work Phone: History and physical note Author Lynne Tabares [facility] March 12, 2023 4:55am Note Date/Time March 12, 2023 4:35am [facility] Medical Records Department [address] [place] [id number] H&P Exam - Hospitalist 03/12/23 0432 MR#: [id number] Acct: [id number] Name: LILLIANA HUBER Rep #:[id number] : 1945 77 From: Lynne Tabares DO PCP: Dr. Elis Cardenas DO Status:ADM IN Location: [place] [address] HPI - General General Date of Admission: 03/12/23 Date of Service: 03/12/23 Chief Complaint: Chest pain HPI Narrative LILLIANA HUBER, is a 77 F who presented to the emergency department at [facility] on 03/12/2023 just after midnight complaining [...] lymphadenopathy and borderline cardiac enlargement [facility] Medical History Aphthous ulcer of mouth Arthritis [...] at home: Yes additional social history: - [place] ROS Constitutional Constitutional: Denies anorexia, change in [...] % (Auto) 60.3, Lymph % (Auto) 27.0, [place] % (Auto) 8.2, Eos % (Auto) 2.3, [...] 1:14 EST Reading Location ID and State: [facility] [place] Tel , Service support , Assessment & Plan Assessment/Plan (1) Acute [...] on admission Charges/Coding Visit Charges Inpatient E&M: 65244 Init Hosp L2 03/12/23 0451 <Electronically signed by Lynne Tabares DO> Cosigner Signature (if applicable): CC: Dr. Lynne Tabares DO; Dr. 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 POST SOBEIDA PMB, woke up bleeding [...] AM EKG NSTEMI PCI with stent S/P [facility] 03/13 NSTEMI & PCI INT LABS Coronary artery disease CAD Reason for Visit Cerebrovascular acci dent Hyperlipidemia Hypertension Acute non-ST elevation myocardial infarction (NSTEMI) Ischemic cardiomyopathy Hyperlipidemia Hypertension Stented coronary artery Chief Complaint NSTEMI NSTEMI NSTEMI AM EKG NSTEMI PCI with stent S/P [facility] 03/13 NSTEMI & PCI INT LABS Coronary artery disease s p PCI AM EKG PCI with stent PCI with stent Reason for Visit Hyperlipidemia Acute non-ST elevation myocardial infarction (NSTEMI) Ischemic cardiomyopathy Hyperlipidemia Stented coronary artery Chief Complaint PCI with stent S/P [facility] 03/13 NSTEMI & PCI INT LABS [...] Admit Date Basilar artery stenosis April 25, 2 024 10:14am Mild cognitive impairment April 25, 2024 10:14am Cerebrovascular accident April 25, 2024 10:14am Basilar artery stenosis May 16 1:21pm Basilar artery stenosis July 13, 2024 1:55pm Mild cognitive impairment July 13 1:55pm Cerebrovascular accident July 13 1:55pm Chief Complaint Admit Date 1 Y July 13, 2024 1:5 5pm SCREENING July [...] WK fu October 18, 2024 12:5 8pm Chief Complaint [...] on right side of face October 5:16pm Chief Complaint Admit Date Pre Colon September 27, 2024 8:44a m 3 WK fu October 18, 2024 12:5 8pm STROKELIKE SYMPTOMS November 23, 2024 5:16 pm TIA/CVA November 24, 2024 8:2 0am STROKELIKE SYMPTOMS November 24, 2024 1:0 4pm SCREENING January 19, 2025 12:13pm Reason for Visit Admit Date Constipation September 27, 2024 8:44a m Change in bowel habits October 18, 2024 1 2:58pm Facial paresthesia November 23, 2024 5:16 pm Weakness on right side of face October 5:16pm History of stroke November 23, 2024 5:16 pm Advance Directives No Advanced Directives Records Found Advance Directive Response Recorded Date/ Time Advance Directives Yes December 01, 9:26am Living Will Yes December 01, 2017 9:26am Power of Acid Tender Yes December 01 9:26am Advance Directive Response Recorded Date/ Time Advance Directives Yes December 01 8:26am Living Will Yes December 01, 2017 8:26am Power of Acid Tender Yes December 01 8:26am Advance Directive Response Recorded Date/ Time Name of Medical Power of Acid Tender ALBINO HUBER May 28, 2022 11:59am Advance Directives Yes December 01 8:26am Living Will Yes May 28 11:59am Power of Acid Tender Yes May 28, 2022 11:59am Advance Directive Response Recorded Date/ Time Advance Directives Yes December 01 9:26am Living Will No October 21, 2022 5:00pm Power of Acid Tender No October 21 5:00pm Advance Directive Response Recorded Date/ Time Advance Directives Yes December 01 8:26am Living Will No March 12 023 12:28am Power of Acid Tender No March 12, 2023 12:28am Advance Directive Response Recorded Date/ Time Name of Medical Power of Acid Tender [facility] March 12, 2023 5:35am Advance Directives Yes December 01, 8:26am Living Will Yes March 12 023 5:35am Power of Acid Tender Yes March 12, 2023 5:35am Advance Directive Response Recorded Date/ Time Name of Medical Power of Acid Tender Boy ([place] March 12, 2023 5:35am Advance Directives on File No Decem 2022 10:42am Advance Directives Yes December 01, 8:26am Living Will No April 12 023 10:20am Power of Acid Tender No April 12, 2023 10:20am Advance Directive Response Recorded Date/ Time Name of Medical Power of Acid Tender Boy ([place]) [facility] March 12, 2023 5:35am Advance Directives on File No Decem bela 2022 10:42am Advance Directives on File No Bill ry 2023 8:31am Name of Medical Power of Acid Tender Boy Huber May 12, 2023 12:53pm Advance Directives Yes May 12, 2023 8:31am Living Will Yes May 12 12:53pm Power of Acid Tender Yes May 12, 2023 12:53pm Advance Directive Response Recorded Date/ Time Advance Directives on File No Mayra bela 2022 11:42am Advance Directives on File No Bill ry 2023 9:31am Name of Medical Power of Acid Tender Boy Huber May 12, 2023 1:53pm Advance Directives Yes May 12, 2023 9:31am Living Will Yes May 12 1:53pm Power of Acid Tender Yes May 12, 2023 1:53pm Advance Directive Response Recorded Date/ Time Advance Directives on File No Bill ry 2023 9:31am Name of Medical Power of Acid Tender Boy Huber May 12, 2023 1:53pm Advance Directives Yes May 12, 2023 9:31am Living Will Yes May 12 1:53pm Power of Acid Tender Yes May 12, 2023 1:53pm Advance Directive Response Recorded Date/ Time Living Will Yes May 12 1:53pm Do you have a Healthcare Power of Acid Tender? Yes May 12, 2023 1:53pm Advance Directives Yes May 12, 2023 9:31am Advance Directive Response Recorded Date/ Time Advance Directives Yes May 12, 2023 9:31am Advance Directive Response Recorded Date/ Time Do you have a Healthcare Power of Acid Tender? Yes November 23, 2024 3:57pm Advance Directives Yes May 12, 2023 9:31am Advance Directive Response Recorded Date/ Time Do you have a Healthcare Pow er of Acid Tender? Yes November 23, 2024 6:15pm Name of Medical Power of Acid Tender Boy Huber - November 23, 2024 6:15pm Advance Directives Yes [...] Provider, Referring P rovider Active Juliette Gayle MACHINE SET UP TECHNICIAN, MACHINE SET UP TECHNICIAN-C Attending Provider Active Team Status: Inactive Member Role Status Dates Dr. Elis Cardenas DO Primary Care Provider, Referring P rovider Active Dr. Afua Barry DO Attending Provider Activ e Team Status: [...] Active Dr. Afua Barry DO Attending Provider, Refe rring Provider Active Team Status: Inactive Member Role Status Dates Dr. Elis Cardenas DO Primary Care Provider Active Dr. Afua Barry DO Attending Provider, Refe rring Provider Active Dr. Kourtney Virk MD Other Provider Active Dr. Jony Pratt , DO Other Provider Active Team Status: Inactive Member Role Status Dates Dr. Elis Cardenas DO Primary Care Provider, Attending P rovider Active Team Status: Active Member Role Status Dates Dr. Elis Cardenas DO Primary Care Provider Active Self Referred [...] Primary Care Provider Active Dr. Martin Wilkins DO Emergency Provider Active Dr. Lynne Tabares [...] , DO Emergency Provider Active Dr. Lynne Rayshawn , DO Admit Provider, Other Provider Ac [...] MD Attending Provider Active Dr. Lynne Tabares DO Referring Provider Active Team Status: Inactive Member Role Status Dates Dr. Elis Cardenas DO Primary Care Provider Active Dr. Kendal Hoffmann MD Attending Provider, Referring Pr ovider Active Team Status: Inactive Member Role Status Dates Dr. Elis Cardenas DO Primary Care Provider, Referring P rovider Active Aiden Galan MACHINE SET UP TECHNICIAN, MACHINE SET UP TECHNICIAN-C Attending Provider Active Team Status: Active Member Role Status Dates Dr. Elis Cardenas DO Primary Care Provider Active Dr. Kendal Hoffmann MD Attending Provider , Referring Provider, Other Provider Active Team Status: Inactive Member Role Status Dates Dr. Elis Cardenas DO Primary Care Provider Active Aiden Galan MACHINE SET UP TECHNICIAN, MACHINE SET UP TECHNICIAN-C Attending Provider, Referring Pro vider Active Team [...] DO Primary Care Provider Active Aiden Galan MACHINE SET UP TECHNICIAN, MACHINE SET UP TECHNICIAN-C Attending Provider, Referring Pro vider Active Dr. [...] 16, 2024 End: May 16, 2024 Claribel M Purvis PA, PA Referring Provider Active Start: May 16, [...] 2024 Self Referred Attending Provider Active Start: [facility] 2024 Self Referred Referring Provider Active Start: [facility] 2024 Team Status: Inactive Member Role Status [...] September 27, 2024 End: September 27, 2024 DORINDA Landa Attending Provider Active Start: September 27, 2024 End: September 27, 2024 Team Status: Inactive Member Role Status Dates Dr. Elis Cardenas DO Primary Care Provider Active Start: September 27, 2024 End: September 27, 2024 DORINDA Landa Attending Provider Active Start: September 27, 2024 End: September 27, 2024 DORINDA Landa Referring Provider Active Start: September 27, 2024 End: September 27, 2024 Team Status: Inactive Member Role Status Dates Dr. Elis Cardenas DO Primary Care Provider Active Start: October 18, 2024 End: October 18, 2024 Dr. Elis Cardenas DO Referring Provider Active St art: October 18, 2024 End: October 18, 2024 DORINDA Landa Attending Provider Active Start: October 18, 2024 End: October 18, 2024 Team Status: Active Member Role/Relationship Status Dates Dr. Elis Cardenas DO Primary Care Provider Active Team Status: Active Member Role/Relationship Status Dates Dr. Elis Cardenas DO Primary Care Provider Active Start: July 17, 2024 Self Referred Attending Provider Active Start: [facility] 2024 Self Referred Referring Provider Active Start: [facility] 2024 Team Status: Inactive Member Role/Relationship Status [...] End: September 27, 2024 Afua Vin , MACHINE SET UP TECHNICIAN-C Attending Provider Active Start: September 27, 2024 End: September 27, 2024 Team Status: Inactive Member Role/Relationship Status Dates Dr. Elis Cardenas DO Primary Care Provider Active Start: September 27, 2024 End: September 27, 2024 Afua Banuelos NP-C Attending Provider Active Start: September 27, 2024 End: September 27, 2024 Afua Banuelos MACHINE SET UP TECHNICIAN-C Referring Provider Active Start: September 27, 2024 [...] End: November 24, 2024 Dr. Tad Trimble , Admit Provider Active Start: November 23, 2024 [...] November 23, 2024 End: November 24, 2024 Team Status: Active Member Role/Relationship Status Dates Dr. Elis Cardenas DO Primary care physician Active Team Status: Inactive Member Role/Relationship Status Dates Dr. Elis Cardenas DO Primary care physician Active Start: September 27, 2024 End: September 27, 2024 Dr. Elis Cardenas DO Referring Provider Active St art: September 27, 2024 End: September 27, 2024 NICOLAS LandaC Attending physician Active Start: September 27, 2024 End: September 27, 2024 Team Status: Inactive Member Role/Relationship Status Dates Dr. Elis Cardenas DO Primary care physician Active Start: September 27, 2024 End: September 27, 2024 DORINDA Landa Attending physician Active Start: September 27, 2024 End: September 27, 2024 DORINDA Landa Referring Provider Active Start: September 27, 2024 End: September 27, 2024 Team Status: Inactive Member Role/Relationship Status Dates Dr. Elis Cardenas DO Primary care physician Active Start: October 18, 2024 End: October 18, 2024 Dr. Elis Cardenas DO Referring Provider Active St art: October 18, 2024 End: October 18, 2024 NICOLAS LandaC Attending physician Active Start: October 18, 2024 End: October 18, 2024 Team Status: Inactive Member Role/Relationship Status Dates Dr. Elis Cardenas DO Primary care physician Active Start: October 24, 2024 Dr. Kourtney Virk MD Attending physician Active Start: October 24, 2024 Team Status: Inactive Member Role/Relationship Status Dates Dr. Elis Cardenas DO Primary care physician Active Start: November 07, 2024 End: November 07, 2024 EASTON TJ , MACHINE SET UP TECHNICIAN-C Attending physician Active Start: November 07, 2024 End: November 07, 2024 EASTON SPENCER , MACHINE SET UP TECHNICIAN-C Referring Provider Active Start: November 07, 2024 End: November 07, 2024 Team Status: Inactive Member Role/Relationship Status Dates Dr. Elis Cardenas DO Primary care physician Active Start: November 13, 2024 End: November 13, 2024 Dr. Lucian Munoz DO Attending physician Active Start: November 13, 2024 End: November 13, 2024 Dr. Lucian Munoz , Referring Provider Active Start: November 13, 2024 End: November 13, 2024 Team Status: Inactive Member Role/Relationship Status Dates Dr. Elis Cardenas DO Primary care physician Active Start: November 23, 2024 End: November 24, 2024 Arnulfo Perrin MD Emergency Department Physician Active Start: November 23, 2024 End: November 24, 2024 Dr. Tad Trimble DO Admitting physician Active Start: November 23 End: November 24, 2024 Dr. Tad Trimble DO Nurse Practitioner Active Start: November 23 End: November 24, 2024 Raul Rachel MD Nurse Practitioner Active Start : November 23, 2024 End: November 24, 2024 Dr. Nisha Plunkett MD Nurse Practitioner Active St art: November 23, 2024 End: November 24, 2024 Kelly Nicolas MD Nurse Practitioner Active S tart: November 23, 2024 End: November 24, 2024 Dr. Uzma Torres DO Nurse Practitioner Active Start: November 23, 2024 End: November 24, 2024 Dr. Krissy Castillo MD Nurse Practitioner Active St art: November 23, 2024 End: November 24, 2024 Dr. Dev Sosa MD Nurse Practitioner Active Start: November 23, 2024 End: November 24, 2024 Dr. Rosanna Walker MD Nurse Practitioner Active S tart: November 23, 2024 End: November 24, 2024 Dr. Davi Garcia MD Nurse Practitioner Active St art: November 23, 2024 End: November 24, 2024 Dr. Luis M Gomez MD Nurse Practitioner Active S tart: November 23, 2024 End: November 24, 2024 Dr. Steven Alvarez MD Nurse Practitioner Active Start: November 23, 2024 End: November 24, 2024 Trice Dumont MD Nurse Practitioner Active S tart: November 23, 2024 End: November 24, 2024 Dr. Michael Slade MD Nurse Practitioner Active Start: November 23, 2024 End: November 24, 2024 Dr. Jeni Lockett MD Nurse Practitioner Active S tart: November 23, 2024 End: November 24, 2024 Dr. Scar Vogt MD Nurse Practitioner Active Start: November 23, 2024 End: November 24, 2024 Dr. Nellie Whittaker MD Nurse Practitioner Active Start: November 23 End: November 24, 2024 Dr. Stevie Burch MD Nurse Practitioner Active Start: November 23, 2024 End: November 24, 2024 Dr. Rachel Holman MD Nurse Practitioner Active Start: November 23, 2024 End: November 24, 2024 Dr. Washington Daily MD Nurse Practitioner Active Start: November 23, 2024 End: November 24, 2024 Dr. Batool Tabares MD Nurse Practitioner Active St art: November 23, 2024 End: November 24, 2024 Lboo Monroe MD Nurse Practitioner Active St art: November 23, 2024 End: November 24, 2024 Dr. Lynne Tabares DO Attending physician Active Start: November 23, 2024 End: November 24, 2024 Team Status: Active Member Role/Relationship Status Dates Dr. Elis Cardenas DO Primary care physician Active Start: November 24, 2024 Chet Hadley MD Attending physician Active Start: November 24, 2024 Dr. Lynne Tabares DO Referring Provider Active S tart: November 24, 2024 Team Status: Active Member Role/Relationship Status Dates Dr. Elis Cardenas DO Primary care physician Active Start: November 24, 2024 Arnulfo Perrin MD Emergency Department Physician Active Start: November 24, 2024 Dr. Tad Trimble DO Admitting physician Active Start: November 24, 2024 Dr. Tad Trimble DO Nurse Practitioner Active Start: November 24, 2024 Raul Rachel MD Nurse Practitioner Active Start : November 24, 2024 Dr. Nisha Plunkett MD Nurse Practitioner Active St art: November 24, 2024 Kelly Nicolas MD Nurse Practitioner Active S tart: November 24, 2024 Dr. Uzma Torres DO Nurse Practitioner Active Start: November 24, 2024 Dr. Krissy Castillo MD Nurse Practitioner Active St art: November 24, 2024 Dr. Dev Sosa MD Nurse Practitioner Active Start: November 24, 2024 Dr. Rosanna Walker MD Nurse Practitioner Active S tart: November 24, 2024 Dr. Davi Garcia MD Nurse Practitioner Active St art: November 24, 2024 Dr. Luis M Gomez MD Nurse Practitioner Active S tart: November 24, 2024 Dr. Steven Alvarez MD Nurse Practitioner Active Start: November 24, 2024 Trice Dumont MD Nurse Practitioner Active S tart: November 24, 2024 Dr. Michael Slade MD Nurse Practitioner Active Start: November 24, 2024 Dr. Jeni Lockett MD Nurse Practitioner Active S tart: November 24, 2024 Dr. Scar Vogt MD Nurse Practitioner Active Start: November 24, 2024 Dr. Nellie Whittaker MD Nurse Practitioner Active Start: November 24, 2024 Dr. Stevie Burch MD Nurse Practitioner Active Start: November 24, 2024 Dr. Rachel Holman MD Nurse Practitioner Active Start: November 24, 2024 Dr. Washington Daily MD Nurse Practitioner Active Start: November 24, 2024 Dr. Batool Tabares MD Nurse Practitioner Active St art: November 24, 2024 Lobo Monroe MD Nurse Practitioner Active St art: November 24, 2024 Dr. Lynne Tabares DO Attending physician Active Start: November 24, 2024 Dr. Lynne Tabares DO Nurse Practitioner Active S tart: November 24, 2024 Team Status: Inactive Member Role/Relationship Status Dates Dr. Elis Cardenas DO Primary care physician Active Start: December 29, 2024 End: December 29, 2024 DORINDA CHAVEZ Attending physician Active Start: December 29, 2024 End: December 29, 2024 DORINDA CHAVEZ Referring Provider Active Start: December 29, 2024 End: December 29, 2024 Team Status: Active Member Role/Relationship Status Dates Dr. Elis Cardenas DO Primary care physician Active Start: January 19, 2025 Dr. Elis Cardenas DO Attending physician Active S tart: January 19, 2025 Dr. Elis Cardenas , DO Referring Provider Active St art: January 19, 2025 INFORMATION SOURCE (unrecogn ized section and content) DATE CREATED AUTHOR 08/22/2024 [facility] DATE CREATED AUTHOR AUTHOR'Shante CLANCY 03/08/2025 [facility] FOR RECORDS PERTAINING TO PATIENTS WHO ARE [...] BE BASED ON THE PRIMARY CLINICAL RECORDS. [employer] provides no warranty or guarantee of the accuracy or completeness of information in this document.
--- NOTE | 2025-04-03 12:18 | STRESSREP_ITS ---
Stress Test Report Date: 03/30/2025 Procedure: Pharmacologic stress nuclear imaging study Indications: Coronary artery disease Consent: Per the patient Procedure: The patient underwent pharmacologic (Regadenoson 0.4mg ) evaluation with a peak heart rate of 72 beats per minute (51%predicted maximal heart rate) and a peak blood pressure of 126/72 mmHg. The baseline ECG demonstrated sinus rhythm with nonspecific ST changes. The peak pharmacologic ECG was nondiagnostic. There were no cardiac dysrhythmias pretest, during pharmacologic infusion, or recovery. There was no complaint of chest discomfort during pharmacologic infusion or recovery. The patient was injected with 13.5 millicuries of technetium 99m Cardiolite and subsequently rest SPECT Cardiolite nuclear imaging was obtained in the horizontal long, vertical long, and short axis views. The patient underwent pharmacologic (Regadenoson) evaluation. The patient was injected with 40.3 millicuries of technetium 99m Cardiolite and subsequently stress SPECT Cardiolite nuclear imaging was obtained in the horizontal long, vertical long, and short axis views. A gated Cardiolite study at peak stress was obtained. The examination was stopped secondary to completion of protocol. Rest and stress SPECT Cardiolite nuclear imaging status post realignment, normalization, and attenuation correction demonstrate no fixed or reversible perfusion defects. There is end systolic thickening and brightening. The gated Cardiolite study demonstrates myocardial thickening and inward wall motion. The reported LVEF is 76%. Impression: 1. Pharmacologic (Regadenoson) evaluation 2. Peak pharmacologic ECG with no diagnostic ischemic changes. 3. There were no cardiac dysrhythmias pretest, during pharmacologic infusion, or recovery. 5. Rest and stress SPECT Cardiolite nuclear imaging demonstrate relative uniform tracer uptake and myocardial perfusion appearing within normal limits. 6. The gated Cardiolite study reports an LVEF of 76%. This note was generated with [email or web address] software. It may contain incorrect words, spelling, and punctuation that were not noted in checking the note before signing.
== END | disposition home or self-care (01) ==
LOC: CVS 07:04
PROVIDERS: PCP Family Medicine; Referring Provider Internal Medicine Cardiovascular Disease; Visit Provider Internal Medicine Cardiovascular Disease
DX: I25.10 Atherosclerotic heart disease of native coronary artery without angina pectoris (principal); I35.1 Nonrheumatic aortic (valve) insufficiency; I10 Essential (primary) hypertension; E78.5 Hyperlipidemia, unspecified; I77.9 Disorder of arteries and arterioles, unspecified; Z95.5 Presence of coronary angioplasty implant and graft
CPT/HCPCS: 78452; 93017; A9500; A4216; J2785